=== PATIENT | female | born 1980 | race African-American/Black ===

== ENCOUNTER → 2018-06-18 | Outpatient (CLI) | payer OTHER ==
[2015-02-21 15:37] VITALS: BP 151/82
[~2018-06-18] MED LIST: AMIT50TA PO; ASPI325T8 PO; CETI10TA16 PO; CITA40TA12 PO; CYCL10TA2 PO; FERR325T72 PO; FLUT16SP2 NS; GABA-586 PO; HYDR1TAB14 PO; LIDO700A4 TP; METO25TA4 PO; MOME13HF2 IH; OXYC-323 PO; PROAIR HFA8.5 GM IH; RANI75TA12 PO; TRAM-48 PO
--- NOTE | 2018-06-18 13:07 | CARD ---
MR#: [id number] Date of Study: 06/18/2018 Ordering Physician: SAAD MULLINS, Referring Physician: SAAD MULLINS, Tech: Ange Hollis APPROVED REPORT EXAM: Two-dimensional and M-mode echocardiogram with Doppler and color Doppler. Other Information Quality : AverageHR: 89bpm INDICATION ASD 2D DIMENSIONS RVDd2.8 (2.9-3.5cm)Left Atrium(2D)3.7 (1.6-4.0cm) IVSd0.8 (0.7-1.1cm)Aortic Root(2D)2.5 (2.0-3.7cm) LVDd4.2 (3.9-5.9cm)LVOT Diameter1.9 (1.8-2.4cm) PWd1.0 (0.7-1.1cm)LVDs3.0 (2.5-4.0cm) FS (%) 26.9 %SV40.6 ml LVEF(%)52.9 (>50%) Aortic Valve AoV Peak Chris.166.7cm/sAoV VTI29.6cm AO Peak GR.11.1mmHgLVOT Peak Chris.141.9cm/s AO Mean GR.6mmHgAVA (VMAX)2.38cm2 Mitral Valve MV E Opyearkj409.5cm/sMV DECEL DGUN779rs MV A Wrdnxxax056.3cm/sE/A Ratio1.6 Tricuspid Valve TR P. Kigrjawb901oc/sRAP JRPWGNNQ9cjZy TR Peak Gr.81vtJiWROS77vhQg LEFT VENTRICLE The left ventricle is normal size. There is normal left ventricular wall thickness. The left ventricu lar systolic function is normal. The Ejection Fraction is 55-60%. There is normal LV segmental wall m otion. The left ventricular diastolic function and filling is normal for age. RIGHT VENTRICLE The right ventricle is normal size. There is normal right ventricular wall thickness. The right ventr icular systolic function is normal. ATRIA The left atrium size is normal. The right atrium size is normal. The interatrial septum is intact wit h no evidence for an atrial septal defect or patent foramen ovale as noted on 2-D or Doppler imaging. AORTIC VALVE The aortic valve is calcified but opens well. Doppler and Color Flow revealed no significant aortic r egurgitation. There is no significant aortic valvular stenosis. MITRAL VALVE The mitral valve is mildly thickened. Doppler and Color-flow revealed trace mitral regurgitation. TRICUSPID VALVE The tricuspid valve is normal in structure and function. Doppler and Color Flow revealed mild tricusp id regurgitation. There is no tricuspid valve stenosis. PULMONIC VALVE The pulmonary valve is normal in structure and function. Doppler and Color Flow revealed trace to mil d pulmonic valvular regurgitation. GREAT VESSELS The aortic root is normal in size. The IVC was visualized and appears normal in size. PERICARDIAL EFFUSION There is no evidence of significant pericardial effusion. Critical Notification Critical Value: No <Conclusion> The left ventricular systolic function is normal. The Ejection Fraction is 55-60%. There is normal LV segmental wall motion. Trace mitral regurgitation. Mild tricuspid regurgitation. There is no evidence of significant pericardial effusion. Signed by : Saad Mullins, Electronically Approved : 06/18/2018 13:06:36
== END | disposition home or self-care (01) ==
LOC: ECHO 11:10
PROVIDERS: ATTEND Internal Medicine Cardiovascular Disease
DX: I36.1 Nonrheumatic tricuspid (valve) insufficiency (principal); G43.909 Migraine, unspecified, not intractable, without status migrainosus; J45.909 Unspecified asthma, uncomplicated; Z86.79 Personal history of other diseases of the circulatory system
CPT/HCPCS: 93306

== ENCOUNTER → 2019-07-06 | Outpatient (CLI) | payer MEDICAID ==
[2015-02-21 15:37] VITALS: BP 151/82
[~2019-07-06] MED LIST changes: +ALBU2.5V8 IH; -GABA-586 PO; +GABA300C18 PO; -HYDR1TAB14 PO; +HYDR1TAB15 PO; -OXYC-323 PO; +OXYC1TAB15 PO; -PROAIR HFA8.5 GM IH; -RANI75TA12 PO; +RANI75TA89 PO
--- NOTE | 2019-07-07 09:39 | CARD ---
MR#: [id number] Date of Study: 07/06/2019 Ordering Physician: SAAD MULLINS, Referring Physician: SAAD MULLINS, Tech: Ange Hollis APPROVED REPORT EXAM: Two-dimensional and M-mode echocardiogram with Doppler and color Doppler. Other Information Quality : AverageHR: 99bpm INDICATION Atrial Septal Defect RISK FACTORS Hypertension Hyperlipidemia Smoking 2D DIMENSIONS RVDd4.0 (2.9-3.5cm)Left Atrium(2D)3.5 (1.6-4.0cm) IVSd1.1 (0.7-1.1cm)Aortic Root(2D)2.3 (2.0-3.7cm) LVDd4.4 (3.9-5.9cm)LVOT Diameter1.9 (1.8-2.4cm) PWd1.0 (0.7-1.1cm)LVDs2.7 (2.5-4.0cm) FS (%) 37.9 %SV58.7 ml LVEF(%)68.3 (>50%) Aortic Valve AoV Peak Chris.178.7cm/sAoV VTI28.7cm AO Peak GR.12.8mmHgLVOT Peak Chris.87.3cm/s LVOT VTI 14.94cmAO Mean GR.7mmHg SO (VMAX)1.65xh4JTT (VTI)1.52cm2 Mitral Valve MV E Jurqzoth587.3cm/sMV E Peak Gr.103mmHg MV A Iredhmfo952.9cm/sE/A Ratio1.4 TDI E/Lateral E'18.5E/Medial E'21.0 Pulmonary Valve PV Peak Yhebarja763.9cm/sPV Peak Grad.4mmHg Tricuspid Valve TR P. Zimvmqtt693is/sRAP FBGVWYKL3waIt TR Peak Gr.16hoKfAYSC61slFv Pulmonary Vein S1 Vqyuuiwx49.2cm/sD2 Kwiqdwoy06.0cm/s PVa uwbaioph33fend LEFT VENTRICLE The left ventricle is normal size. There is mild concentric left ventricular hypertrophy. The left ve ntricular systolic function is normal. The Ejection Fraction is 55-60%. There is normal LV segmental wall motion. The left ventricular diastolic function and filling is normal for age. RIGHT VENTRICLE The right ventricle is normal size. There is normal right ventricular wall thickness. The right ventr icular systolic function is normal. ATRIA The left atrium is borderline dilated. The right atrium size is normal. The interatrial septum is int act with no evidence for an atrial septal defect or patent foramen ovale as noted on 2-D or Doppler i maging. AORTIC VALVE The aortic valve is normal in structure and function. Doppler and Color Flow revealed no significant aortic regurgitation. There is no significant aortic valvular stenosis. MITRAL VALVE The mitral valve is mildly thickened. There is no evidence of mitral valve prolapse. There is no mitr al valve stenosis. Doppler and Color-flow revealed trace mitral regurgitation. TRICUSPID VALVE The tricuspid valve is normal in structure and function. Doppler and Color Flow revealed moderate ecc entric tricuspid regurgitation with an estimated PAP of 56 mmHg. There is moderate pulmonary hyperten ila. There is no tricuspid valve prolapse or vegetation. There is no tricuspid valve stenosis. PULMONIC VALVE The pulmonary valve is normal in structure and function. Doppler and Color Flow revealed trace pulmon ic valvular regurgitation. GREAT VESSELS The aortic root is normal in size. The IVC is normal in size and collapses >50% with inspiration. PERICARDIAL EFFUSION There is no evidence of significant pericardial effusion. Critical Notification Critical Value: No <Conclusion> The left ventricular systolic function is normal. The Ejection Fraction is 55-60%. There is normal LV segmental wall motion. Trace mitral regurgitation. Moderate eccentric tricuspid regurgitation with an estimated PAP of 56 mmHg. There is moderate pulmonary hypertension. There is no evidence of significant pericardial effusion. Signed by : Saad Mullins, Electronically Approved : 07/07/2019 09:39:01
== END | disposition home or self-care (01) ==
LOC: ECHO 13:27
PROVIDERS: ATTEND Internal Medicine Cardiovascular Disease
DX: I07.1 Rheumatic tricuspid insufficiency (principal); I48.0 Paroxysmal atrial fibrillation; I31.3 Pericardial effusion (noninflammatory); I27.20 Pulmonary hypertension, unspecified
CPT/HCPCS: 93306

== ENCOUNTER → 2020-07-29 | Outpatient (CLI) | payer MEDICAID ==
[2015-02-21 15:37] VITALS: BP 151/82
--- NOTE | 2020-07-29 20:10 | CARD ---
MR#: [id number] Date of Study: 07/29/2020 Ordering Physician: SAAD YAN, Referring Physician: SAAD YAN Tech: Cinthya Ricardo RDCS APPROVED REPORT EXAM: Two-dimensional and M-mode echocardiogram with Doppler and color Doppler. Other Information Quality : Good INDICATION ASD ASD Closure with Bovine Pericardial Patch 12/17/14 2D DIMENSIONS RVDd3.7 (2.9-3.5cm)Left Atrium(2D)3.9 (1.6-4.0cm) IVSd0.8 (0.7-1.1cm)Aortic Root(2D)2.3 (2.0-3.7cm) LVDd3.9 (3.9-5.9cm)LVOT Diameter1.8 (1.8-2.4cm) PWd0.9 (0.7-1.1cm)LVDs2.7 (2.5-4.0cm) FS (%) 29.6 %SV37.2 ml LVEF(%)57.3 (>50%) Aortic Valve AoV Peak Chris.159.5cm/sAoV VTI21.7cm AO Peak GR.10.2mmHgLVOT Peak Chris.97.3cm/s AO Mean GR.6mmHgAVA (VMAX)1.56cm2 Tricuspid Valve TR P. Jnerctbf623xy/sRAP SNSCOAMJ210fpGh TR Peak Gr.65mmHg Pulmonary Vein S1 Uyoqbceg00.1cm/sD2 Tqnzeigw00.4cm/s LEFT VENTRICLE The left ventricle is normal size. There is normal left ventricular wall thickness. The left ventricu lar systolic function is normal and the ejection fraction is within normal range. The Ejection Fracti on is 60-65%. Septal motion consistent with RV pressure and volume overload. Tissue Doppler imaging r eveals moderate left ventricular diastolic dysfunction. RIGHT VENTRICLE The right ventricle is moderate to severely dilated. RV Systolic function is moderately reduced. ATRIA The left atrium is borderline dilated. The right atrium is moderately dilated. The interatrial septum is intact with no evidence for an atrial septal defect or patent foramen ovale as noted on 2-D or Do ppler imaging. AORTIC VALVE The aortic valve is normal in structure and function. Doppler and Color Flow revealed no significant aortic regurgitation. There is no significant aortic valvular stenosis. MITRAL VALVE The mitral valve is calcified but opens well. There is no evidence of mitral valve prolapse. There is no mitral valve stenosis. Doppler and Color-flow revealed moderate to severe eccentric mitral regurg itation due to restricted posterior leaflet. TRICUSPID VALVE The tricuspid valve is malapposed. Doppler and Color Flow revealed severe eccentric tricuspid regurgi tation. There is severe pulmonary hypertension. The PA pressure was estimated at 68 mmHg. There is no tricuspid valve stenosis. PULMONIC VALVE The pulmonary valve is normal in structure and function. Doppler and Color Flow revealed mild to mode rate pulmonic valvular regurgitation. There is no pulmonic valvular stenosis. GREAT VESSELS The aortic root is normal in size. The ascending aorta is not well seen. There is moderate pulmonary artery dilatation. The IVC is normal in size and collapses >50% with inspiration. PERICARDIAL EFFUSION There is no evidence of significant pericardial effusion. Critical Notification Critical Value: No <Conclusion> The left ventricular systolic function is normal and the ejection fraction is within normal range. Th e Ejection Fraction is 60-65%. Septal motion consistent with RV pressure and volume overload. The right ventricle is moderate to severely dilated. RV Systolic function is moderately reduced. Doppler and Color-flow revealed moderate to severe eccentric mitral regurgitation due to restricted p osterior leaflet. Doppler and Color Flow revealed severe eccentric tricuspid regurgitation. There is severe pulmonary h ypertension. The PA pressure was estimated at 68 mmHg. Doppler and Color Flow revealed mild to moderate pulmonic valvular regurgitation. There is moderate pulmonary artery dilatation. Signed by : Renny Campbell, Electronically Approved : 07/29/2020 20:10:15
== END ==
LOC: ECHO 13:44
PROVIDERS: ATTEND Internal Medicine Cardiovascular Disease
DX: I08.8 Other rheumatic multiple valve diseases (principal); I28.1 Aneurysm of pulmonary artery; Q21.1 Atrial septal defect
CPT/HCPCS: 93306

== ENCOUNTER → 2020-08-04 | Outpatient (CLI) | payer MEDICAID ==
[2015-02-21 15:37] VITALS: BP 151/82
== END ==
LOC: LAB 13:15
PROVIDERS: ATTEND Internal Medicine Cardiovascular Disease
DX: Z01.812 Encounter for preprocedural laboratory examination (principal); Z20.828 Contact with and (suspected) exposure to other viral communicable diseases; I08.1 Rheumatic disorders of both mitral and tricuspid valves
CPT/HCPCS: U0003

== ENCOUNTER 2020-08-08 09:21 | Day surgery (SDC) | payer MEDICAID ==
[~2020-08-08 09:21] MED LIST changes: +IV RINGERS,LACTATED 1000ML 1,000 ML IV SCH
[2020-08-08] MEDS ORDERED: OMEP20CA16 PO (09:54)
[2020-08-08] MEDS ORDERED: PROPOFOL 10 MG/ML (20ML) VIAL. IV ONE (09:56)
[2020-08-08] MEDS ORDERED: LIDOCAINE 2% VISCOUS 15 ML SOLUTION. ONE (10:00)
[2020-08-08] MEDS ORDERED: BENZOCAINE ONE 20% MUCOSAL SPRAY. (10:00)
[2020-08-08] MEDS ORDERED: LIDOCAINE 2% TOPICAL JELLY 30GM TUBE. TP ONE ×2 (10:00→12:15)
[2020-08-08 10:32] LABS: PREG TEST PT QUAL NEGATIVE (NEG)
[2020-08-08] MEDS ORDERED: ETOMIDATE 20 MG/10 ML VIAL. IV ONE (11:00)
[2020-08-08] MEDS ORDERED: PHENYLEPHRINE in 0.9% NACL PF 1 MG/10 ML SYRINGE. IV ONE (11:00)
[2020-08-08 11:48] VITALS: BP 116/68
[2020-08-08] MEDS ORDERED: BENZOCAINE ONE 20% MUCOSAL SPRAY. MM (12:15)
[2020-08-08] MEDS ORDERED: LIDOCAINE 2% VISCOUS 15 ML SOLUTION. SWSW ONE (12:15)
--- NOTE | 2020-08-09 08:59 | CARD ---
MR#: [id number] Date of Study: 08/08/2020 Ordering Physician: SAAD YAN, Referring Physician: SAAD YAN Tech: Ange Hollis APPROVED REPORT EXAM: Transesophageal echocardiogram with color flow Doppler. INDICATION Valvular heart disease, Mitral and tricuspid regurgitation Tricuspid Valve TR P. Hqrkkybf631de/sRAP ALFEVCTN4vrPs TR Peak Gr.96rlLbBUVE67dvEx Reason For Test : Rule out cardiac source of emboli. PROCEDURE After obtaining informed consent, patient underwent transesophageal echo in the PACU. Type of Sedation : General Anesthesia Sedation was administered by Dr. Dorsey. Sedation was achieved with Propofol 300mg intravenously. Transesophageal probe was inserted and advanced into esophagus by Saad Yan MD. The SAMMY was performed without complications. Throughout the procedure, the blood pressure, pulse oximetry, cardiac rhythm, and rate were monitored . The patient tolerated the procedure without adverse effects. Recovery from general anesthesia was une ventful and vital signs were stable. LEFT VENTRICLE The left ventricle is normal size. There is normal left ventricular wall thickness. The left ventricu lar systolic function is normal. The Ejection Fraction is 55-60%. There is a flattened septum consist ent with right ventricle volume overload. RIGHT VENTRICLE The right ventricle is mildly dilated. There is normal right ventricular wall thickness. ATRIA The left atrium size is normal. The right atrium is moderately dilated. The interatrial septum is int act with no evidence for an atrial septal defect or patent foramen ovale as noted on 2-D or Doppler i maging. AORTIC VALVE The aortic valve is normal in structure and function. Doppler and Color Flow revealed no significant aortic regurgitation. There is no significant aortic valvular stenosis. MITRAL VALVE There is no evidence of mitral valve prolapse. There is no mitral valve stenosis. Restricted posterio r valve leaflet. Moderate mitral regurgitation wtih eccentric anteriorily directed jet. TRICUSPID VALVE The tricuspid valve leaflets are thickened , but open well. Doppler and Color Flow revealed moderate to severe tricuspid regurgitation with an estimated PAP of 55 mmHg. There is moderate pulmonary hyper tension. There is no tricuspid valve stenosis. PULMONIC VALVE The pulmonary valve is normal in structure and function. Doppler and Color Flow revealed trace to mil d pulmonic valvular regurgitation. GREAT VESSELS The aortic root is normal in size. PERICARDIAL EFFUSION There is no evidence of significant pericardial effusion. Critical Notification Critical Value: No <Conclusion> Technically very difficult study with air interference and artifacts despite several maneuvers. The left ventricular systolic function is normal. The Ejection Fraction is 55-60%. There is a flattened septum consistent with right ventricle volume overload. Restricted posterior valve leaflet. Moderate mitral regurgitation wtih eccentric anteriorily directe d jet. Moderate to severe tricuspid regurgitation with an estimated PAP of 55 mmHg. The interatrial septum is intact with no evidence for an atrial septal defect or patent foramen ovale There is no evidence of significant pericardial effusion. Signed by : Saad Yan, Electronically Approved : 08/09/2020 08:58:57
== END 2020-08-08 11:50 | disposition home or self-care (01) ==
LOC: SURG 09:21
PROVIDERS: ATTEND Internal Medicine Cardiovascular Disease
DX: I08.1 Rheumatic disorders of both mitral and tricuspid valves (principal); I10 Essential (primary) hypertension; E78.00 Pure hypercholesterolemia, unspecified; M19.90 Unspecified osteoarthritis, unspecified site; J45.909 Unspecified asthma, uncomplicated; E66.9 Obesity, unspecified; K21.9 Gastro-esophageal reflux disease without esophagitis; Z79.899 Other long term (current) drug therapy; Z98.890 Other specified postprocedural states; Z83.3 Family history of diabetes mellitus; Z88.8 Allergy status to other drugs, medicaments and biological substances; Z79.82 Long term (current) use of aspirin; Z87.891 Personal history of nicotine dependence
CPT/HCPCS: 84703; 93312; 93320; 93325; J2370; J2704; J3490

== ENCOUNTER 2020-11-15 09:22 | Inpatient (IN) | payer MEDICAID ==
[~2020-11-15] VITALS: Ht 162.6 cm; Wt 71.9 kg
[2020-11-15] VITALS (14 sets, daily range): BP systolic 111–144; BP diastolic 72–90
[~2020-11-15 09:22] MED LIST changes: +AMIO200T6 PO; +APIX5TAB PO; +DOXY100T PO; +FURO40TA4 PO; -IV RINGERS,LACTATED 1000ML 1,000 ML IV SCH; +OMEP20CA16 PO; +POTA20TA4 PO
[2020-11-15] MEDS ORDERED: FUROSEMIDE 40 MG/4 ML VIAL. IVP ONE (10:15)
--- NOTE | 2020-11-15 10:31 | ED.ADGEN ---
Past Medical History Past Medical History: Asthma, Bronchitis, CHF, High Cholesterol, Hypertension Additional Past Medical Histor: bulging disc, heart valve leaks, neuropathy Past Surgical History: Other Additional Past Surgical Histo: tailbone cysts, ASD repair; PFO closure Smoking Status: Former Smoker Alcohol Use: Occasionally Drug Use: Marijuana General Adult EDM: Chief Complaint: SHORTNESS OF BREATH HPI: HPI: Patient is a 39 year old female coming in for increasing shortness of breath and lower extremity edema. Patient also states that her abdomen feels more distended. She has a history significant for heart failure related to a septal defect that was not identified until she was 34 years old and atrial fibrillation. Have surgery to have it repaired but has chronic cardiac disease related to it. Has been started on amlodipine, furosemide, Eliquis. Patient states she has been compliant her medications. Denies any vomiting or diarrhea, no cough, chest pain or pressure. Has orthopnea and has to sit up to sleep. Review of Systems: Review of Systems: All other systems within normal limits except for as noted in the HPI Current Medications: Current Medications Medications (Trade) Dose Ordered Sig/Kailey Start Time Stop Time Status Last Admin Dose Admin Furosemide (Lasix) 40 mg 1X ONCE 11/15/20 10:15 11/15/20 10:22 DC 11/15/20 11:16 40 MG Allergies: Allergies: Allergies Coded Allergies Type Severity Reaction Last Updated Verified ibuprofen Allergy Intermediate Hives 08/08/20 Yes I S O L A T I O N *CONTACT* Allergy Unknown 08/08/20 Yes Physical Exam: PE: Constitutional: Well developed, well nourished, ill-appearing. [] HENT: Normocephalic, atraumatic, bilateral external ears normal, nose normal. [] Eyes: PERRLA, conjunctiva normal, no discharge. [] Neck: No rigidity, supple, no stridor. [] Cardiovascular: Tachycardic, regular rhythm [] Lungs & Thorax: Labored breathing with tachypnea, basilar crackles [] Abdomen: Soft, mildly distended, nontender to palpation. Skin: Warm, dry, no erythema, no rash. [] Back: Unremarkable Extremities: No deformities, range of motion grossly intact, bilateral pitting lower extremity edema [] Neurologic: Alert and oriented X 3, no focal deficits noted. [] Psychologic: Affect normal, judgement normal, mood normal. [] Current Patient Data: Labs: Laboratory Tests Test 11/15/20 11:09 11/15/20 11:40 White Blood Count 15.4 x10^3/uL (4.0-11.0) H Red Blood Count 4.73 x10^6/uL (3.50-5.40) Hemoglobin 9.3 g/dL (12.0-15.5) L Hematocrit 32.9 % (36.0-47.0) L Mean Corpuscular Volume 70 fL (79-100) L Mean Corpuscular Hemoglobin 20 pg (25-35) L Mean Corpuscular Hemoglobin Concent 28 g/dL (31-37) L Red Cell Distribution Width 25.6 % (11.5-14.5) H Platelet Count 367 x10^3/uL (140-400) Neutrophils (%) (Auto) 82 % (31-73) H Lymphocytes (%) (Auto) 12 % (24-48) L Monocytes (%) (Auto) 6 % (0-9) Eosinophils (%) (Auto) 0 % (0-3) Basophils (%) (Auto) 0 % (0-3) Neutrophils # (Auto) 12.6 x10^3/uL (1.8-7.7) H Lymphocytes # (Auto) 1.8 x10^3/uL (1.0-4.8) Monocytes # (Auto) 0.9 x10^3/uL (0.0-1.1) Eosinophils # (Auto) 0.0 x10^3/uL (0.0-0.7) Basophils # (Auto) 0.0 x10^3/uL (0.0-0.2) Segmented Neutrophils % 82 % (35-66) H Lymphocytes % 11 % (24-48) L Monocytes % 7 % (0-10) Nucleated Red Blood Cells 2 Platelet Estimate Adequate (ADEQUATE) Large Platelets Mod Giant Platelets Few Hypochromasia Marked Poikilocytosis Present Anisocytosis Marked Microcytosis Marked Ovalocytes Present Acanthocytes (Spur Cells) Present RBC Morphology Bizarre Forms Occ Prothrombin Time 54.6 SEC (11.7-14.0) H Prothrombin Time INR 6.0 (0.8-1.1) *H Sodium Level 137 mmol/L (136-145) Potassium Level 4.3 mmol/L (3.5-5.1) Chloride Level 94 mmol/L (98-107) L Carbon Dioxide Level 6 mmol/L (21-32) *L Anion Gap 37 (6-14) H Blood Urea Nitrogen 29 mg/dL (7-20) H Creatinine 2.0 mg/dL (0.6-1.0) H Estimated GFR (Cockcroft-Gault) 33.6 BUN/Creatinine Ratio 15 (6-20) Glucose Level 31 mg/dL (70-99) *L Lactic Acid Level 22.0 mmol/L (0.4-2.0) *H Calcium Level 10.1 mg/dL (8.5-10.1) Phosphorus Level 8.0 mg/dL (2.6-4.7) H Magnesium Level 2.4 mg/dL (1.8-2.4) Total Bilirubin 3.2 mg/dL (0.2-1.0) H Aspartate Amino Transferase (AST) 55 U/L (15-37) H Alanine Aminotransferase (ALT) 52 U/L (14-59) Alkaline Phosphatase 156 U/L (46-116) H Troponin I Quantitative 0.034 ng/mL (0.000-0.055) LM-Jnh-U-Type Natriuretic Peptide 58055 pg/mL (0-124) H Total Protein 8.0 g/dL (6.4-8.2) Albumin 3.6 g/dL (3.4-5.0) Albumin/Globulin Ratio 0.8 (1.0-1.7) L Procalcitonin 2.08 ng/mL (0.00-0.10) H Urine Collection Type Void Urine Color Denita Urine Clarity Cloudy Urine pH 5.0 (<5.0-8.0) Urine Specific [place] 1.015 (1.000-1.030) Urine Protein >=300 mg/dL (NEG-TRACE) Urine Glucose (UA) Negative mg/dL (NEG) Urine Ketones (Stick) Negative mg/dL (NEG) Urine Blood Negative (NEG) Urine Nitrite Negative (NEG) Urine Bilirubin Negative (NEG) Urine Urobilinogen Dipstick 1.0 mg/dL (0.2 mg/dL) Urine Leukocyte Esterase Negative (NEG) Urine RBC Occ /HPF (0-2) Urine WBC 5-10 /HPF (0-4) Urine Squamous Epithelial Cells Many /LPF Urine Amorphous Sediment Present /HPF Urine Bacteria Few /HPF (0-FEW) Urine Hyaline Casts Many /HPF Laboratory Tests 11/15/20 11:09 Laboratory Tests 11/15/20 11:09 Vital Signs: Vital Signs Date Time Temp Pulse Resp B/P (MAP) Pulse Ox O2 Delivery O2 Flow Rate FiO2 11/15/20 11:58 106 20 121/75 (90) 100 11/15/20 10:02 Room Air 11/15/20 09:30 96.0 96.0 EKG: EKG: Atrial fibrillation, heart rate 112 bpm, normal axis, no ST elevation or depression. [] Heart Score: Risk Factors: Risk Factors: DM, Current or recent (<one month) smoker, HTN, HLP, family history of CAD, obesity. Risk Scores: Score 0 - 3: 2.5% MACE over next 6 weeks - Discharge Home Score 4 - 6: 20.3% MACE over next 6 weeks - Admit for Clinical Observation Score 7 - 10: 72.7% MACE over next 6 weeks - Early Invasive Strategies Radiology/Procedures: Radiology/Procedures: EXAM: CHEST 1 VIEW History: Congestive heart failure COMPARISON: 09/27/2020 TECHNIQUE: Single portable radiograph of the chest FINDINGS: Mild cardiomegaly. Right lung base airspace opacities likely pneumonia or atelectasis with small right pleural effusion slightly increased since prior exam. IMPRESSION: Right lung base airspace opacities likely pneumonia or atelectasis with small right pleural effusion slightly increased since prior exam. [] Course & Med Decision Making: Course & Med Decision Making Pertinent Labs and Imaging studies reviewed. (See chart for details) [] Dragon Disclaimer: Dragon Disclaimer: This electronic medical record was generated, in whole or in part, using a voice recognition dictation system. Departure Departure Impression: Primary Impression: Atrial fibrillation with RVR Additional Impressions: CHF (congestive heart failure) KENNETH (acute kidney injury) Hypoglycemia Pneumonia Disposition: ADMITTED INPT THIS HOSP Admitting Physician: YESSICA Condition: GUARDED Referrals: CLAYTON NGUYEN MD (PCP) Problem Qualifiers TREVOR DSOUZA MD Nov 15, 2020 10:31
--- NOTE | 2020-11-15 10:34 | RAD ---
EXAM: CHEST 1 VIEW History: Congestive heart failure COMPARISON: 09/27/2020 TECHNIQUE: Single portable radiograph of the chest FINDINGS: Mild cardiomegaly. Right lung base airspace opacities likely pneumonia or atelectasis with small right pleural effusion slightly increased since prior exam. IMPRESSION: Right lung base airspace opacities likely pneumonia or atelectasis with small right pleural effusion slightly increased since prior exam. Electronically signed by: Faustino Motta MD (11/15/2020 10:31 AM) [id number]
[2020-11-15 11:18] LABS: BASO % 0 % (0-3); EOS % 0 % (0-3); HEMATOCRIT 32.9 % (36.0-47.0); HEMOGLOBIN 9.3 g/dL (12.0-15.5); LYMPH # 1.8 x10^3/uL (1.0-4.8); LYMPH % 12 % (24-48); MEAN CORPUSCULAR HEMOGLOBIN 20 pg (25-35); MEAN CORPUSCULAR HGB CONC 28 g/dL (31-37); MEAN CORPUSCULAR VOLUME 70 fL (79-100); MONO # 0.9 x10^3/uL (0.0-1.1); MONO % 6 % (0-9); NEUT # 12.6 x10^3/uL (1.8-7.7); NEUT % 82 % (31-73); PLATELET COUNT 367 x10^3/uL (140-400); RED BLOOD COUNT 4.73 x10^6/uL (3.50-5.40); RED CELL DISTRIBUTION WIDTH 25.6 % (11.5-14.5); WHITE BLOOD COUNT 15.4 x10^3/uL (4.0-11.0)
[2020-11-15 11:29] LABS: PROTHROMBIN TIME PATIENT 54.6 SEC (11.7-14.0)
[2020-11-15 11:52] LABS: ALBUMIN 3.6 g/dL (3.4-5.0); ALBUMIN/GLOBULIN RATIO 0.8 (1.0-1.7); CALCIUM 10.1 mg/dL (8.5-10.1); GFR 33.6; MAGNESIUM 2.4 mg/dL (1.8-2.4); POTASSIUM 4.3 mmol/L (3.5-5.1); TOTAL BILIRUBIN 3.2 mg/dL (0.2-1.0)
[2020-11-15 12:05] LABS: BILIRUBIN,URINE NEGATIVE (NEG); CLARITY,URINE CLOUDY; COLOR,URINE AMBER; NITRITE,URINE NEGATIVE (NEG); PROTEIN,URINE >=300 mg/dL (NEG-TRACE)
[2020-11-15 12:17] LABS: AMORPHOUS SEDIMENT,UR PRESENT /HPF; BACTERIA,URINE FEW /HPF (0-FEW); HYALINE CASTS, URINE MANY /HPF; RBC,URINE OCC /HPF (0-2)
[2020-11-15] MEDS ORDERED: DEXTROSE 50% 25 GM / 50ML DISP.SYRIN. IV ONE ×2 (12:27→12:45)
[2020-11-15] MEDS ORDERED: fentaNYL PF VIAL 100 MCG/2 ML VIAL IV PRN (13:00)
[2020-11-15] MEDS ORDERED: PIPERACILLIN/TAZOBACTAM 3.375 GM in IV NORMAL SALINE 50ML 50 ML IV ONE (13:00)
[2020-11-15] MEDS ORDERED: VANCOMYCIN 2 GM in IV NORMAL SALINE 500ML BAG 500 ML IV ONE (13:00)
[2020-11-15] MEDS ORDERED: ACETAMINOPHEN 325 MG TABLET. PO PRN ×2 (13:00→16:15)
[2020-11-15] MEDS ORDERED: ONDANSETRON PF 4 MG/2 ML VIAL. IV PRN (13:00)
[2020-11-15 13:10] LABS: % LYMPHS 11 % (24-48); % MONOS 7 % (0-10); % SEGS 82 % (35-66); NUCLEATED RBC 2
[2020-11-15 13:12] LABS: PLT ESTIMATE ADEQUATE (ADEQUATE)
[2020-11-15 13:13] LABS: ANISOCYTOSIS MARKED; HYPOCHROMIA MARKED; POIKILOCYTOSIS PRESENT
[2020-11-15 13:14] LABS: ACANTHOCYTES PRESENT; MICROCYTOSIS MARKED; OVALOCYTES PRESENT
[2020-11-15 13:15] LABS: BIZZARE CELLS OCC
[2020-11-15 15:04] LABS: BASE EXCESS ABG -21 mmol/L (-3-3); HCO3 ABG 5 mmol/L (21-28); PO2 ABG 119 mmHg (75-108); SAT O2 ABG 97 % (92-99)
[2020-11-15 15:10] LABS: PCO2 ABG < 15 mmHg (35-46)
[2020-11-15 15:11] LABS: FIO2 ABG 21
--- NOTE | 2020-11-15 15:15 | PDOC2 ---
KELLY FLOOD TRADING ASSISTANT 11/15/20 1515: CARDIAC CONSULT DATE OF CONSULT Date of Consult DATE: 11/15/20 TIME: 14:57 REASON FOR CONSULT Reason for Consult: CHF REFERRING PHYSICIAN Referring Physician: Dr. Simms SOURCE Source: Chart review, Patient HISTORY OF PRESENT ILLNESS HISTORY OF PRESENT ILLNESS This is a 39 yo female who presented secondary to LE edema and shortness of breath for the last several days. Developed orthopnea last night. SOA progressed so she came into the ED for further evaluation and treatment. She denies any dizziness, chest pain, palpitations, diaphoresis, or nausea/vomiting. Has a history of ASD s/p repair, chronic diastolic CHF, and AFIB. Was seen by our service in September for new onset AFIB. Amiodarone and Eliquis initiated. INR 6.0 upon arrival. Recent event monitor with mainly atrial flutter. PAST MEDICAL HISTORY Past Medical History Cardiovascular: HTN, Valve insufficiency, AFIB/flutter, Pulmonary hypertension (ASD), Other Pulmonary: Asthma, Bronchitis CENTRAL NERVOUS SYSTEM: Other (No pertinent history) GI: GERD Heme/Onc: Anemia NOS Psych: Anxiety Musculoskeletal: low back pain ENT: Allergic Rhinitis PAST SURGICAL HISTORY Past Surgical History Other (multiple failed percutaneous closure prompting open surgical repair of ASD; pilonidal cyst removal) FAMILY HISTORY Family History: Other (noncontributory ) SOCIAL HISTORY Social History Smoke: No ALCOHOL: none Drugs: None CURRENT MEDICATIONS CURRENT MEDICATIONS Current Medications Medications (Trade) Dose Ordered Sig/Kailey Route PRN Reason Start Time Stop Time Status Last Admin Dose Admin Furosemide (Lasix) 40 mg 1X ONCE IVP 11/15/20 10:15 11/15/20 10:22 DC 11/15/20 11:16 Vancomycin HCl 2 gm/Sodium Chloride 500 ml @ 250 mls/hr 1X ONCE IV 11/15/20 13:00 11/15/20 14:59 11/15/20 13:37 Piperacillin Sod/ Tazobactam Sod 3.375 gm/Sodium Chloride 50 ml @ 100 mls/hr 1X ONCE IV 11/15/20 13:00 11/15/20 13:29 DC 11/15/20 13:05 Dextrose (Dextrose 50%-Water Syringe) 25 gm 1X ONCE IV 11/15/20 12:45 11/15/20 12:46 DC 11/15/20 12:35 ALLERGIES ALLERGIES: Coded Allergies: ibuprofen (Verified Allergy, Intermediate, Hives, 08/08/20) I S O L A T I O N *CONTACT* (Verified Allergy, Unknown, 08/08/20) mrsa + ROS Review of System 14 point ROS conducted with pertinent positives noted above in HPI PHYSICAL EXAM PHYSICAL EXAM General: Alert, Oriented X3, Cooperative, No acute distress HEENT: Mucous membr. moist/pink Lungs: Other (diminished bases with fine crackles) Heart: Other (AFlutter) Abdomen: Soft, Other (truncal obesity) Extremities: No cyanosis, Other (1+ LE edema) Neuro: Normal speech, Sensation intact Psych/Mental Status: Mental status NL, Mood NL MUSCULOSKELETAL: Osteoarthritic changes both hands VITALS/I&O VITALS/I&O: Vital Signs Date Time Temp Pulse Resp B/P (MAP) Pulse Ox O2 Delivery O2 Flow Rate FiO2 11/15/20 14:21 102 20 145/82 (103) 100 Room Air 11/15/20 09:30 96.0 96.0 LABS Lab: Laboratory Tests Test 11/15/20 11:09 11/15/20 11:40 11/15/20 12:25 11/15/20 13:00 White Blood Count 15.4 x10^3/uL (4.0-11.0) H Red Blood Count 4.73 x10^6/uL (3.50-5.40) Hemoglobin 9.3 g/dL (12.0-15.5) L Hematocrit 32.9 % (36.0-47.0) L Mean Corpuscular Volume 70 fL (79-100) L Mean Corpuscular Hemoglobin 20 pg (25-35) L Mean Corpuscular Hemoglobin Concent 28 g/dL (31-37) L Red Cell Distribution Width 25.6 % (11.5-14.5) H Platelet Count 367 x10^3/uL (140-400) Neutrophils (%) (Auto) 82 % (31-73) H Lymphocytes (%) (Auto) 12 % (24-48) L Monocytes (%) (Auto) 6 % (0-9) Eosinophils (%) (Auto) 0 % (0-3) Basophils (%) (Auto) 0 % (0-3) Neutrophils # (Auto) 12.6 x10^3/uL (1.8-7.7) H Lymphocytes # (Auto) 1.8 x10^3/uL (1.0-4.8) Monocytes # (Auto) 0.9 x10^3/uL (0.0-1.1) Eosinophils # (Auto) 0.0 x10^3/uL (0.0-0.7) Basophils # (Auto) 0.0 x10^3/uL (0.0-0.2) Segmented Neutrophils % 82 % (35-66) H Lymphocytes % 11 % (24-48) L Monocytes % 7 % (0-10) Nucleated Red Blood Cells 2 Platelet Estimate Adequate (ADEQUATE) Large Platelets Mod Giant Platelets Few Hypochromasia Marked Poikilocytosis Present Anisocytosis Marked Microcytosis Marked Ovalocytes Present Acanthocytes (Spur Cells) Present RBC Morphology Bizarre Forms Occ Prothrombin Time 54.6 SEC (11.7-14.0) H Prothrombin Time INR 6.0 (0.8-1.1) *H Sodium Level 137 mmol/L (136-145) Potassium Level 4.3 mmol/L (3.5-5.1) Chloride Level 94 mmol/L (98-107) L Carbon Dioxide Level 6 mmol/L (21-32) *L Anion Gap 37 (6-14) H Blood Urea Nitrogen 29 mg/dL (7-20) H Creatinine 2.0 mg/dL (0.6-1.0) H Estimated GFR (Cockcroft-Gault) 33.6 BUN/Creatinine Ratio 15 (6-20) Glucose Level 31 mg/dL (70-99) *L Lactic Acid Level 22.0 mmol/L (0.4-2.0) *H Calcium Level 10.1 mg/dL (8.5-10.1) Phosphorus Level 8.0 mg/dL (2.6-4.7) H Magnesium Level 2.4 mg/dL (1.8-2.4) Total Bilirubin 3.2 mg/dL (0.2-1.0) H Aspartate Amino Transferase (AST) 55 U/L (15-37) H Alanine Aminotransferase (ALT) 52 U/L (14-59) Alkaline Phosphatase 156 U/L (46-116) H Troponin I Quantitative 0.034 ng/mL (0.000-0.055) WG-Lcz-R-Type Natriuretic Peptide 67365 pg/mL (0-124) H Total Protein 8.0 g/dL (6.4-8.2) Albumin 3.6 g/dL (3.4-5.0) Albumin/Globulin Ratio 0.8 (1.0-1.7) L Procalcitonin 2.08 ng/mL (0.00-0.10) H Urine Collection Type Void Urine Color Denita Urine Clarity Cloudy Urine pH 5.0 (<5.0-8.0) Urine Specific [place] 1.015 (1.000-1.030) Urine Protein >=300 mg/dL (NEG-TRACE) Urine Glucose (UA) Negative mg/dL (NEG) Urine Ketones (Stick) Negative mg/dL (NEG) Urine Blood Negative (NEG) Urine Nitrite Negative (NEG) Urine Bilirubin Negative (NEG) Urine Urobilinogen Dipstick 1.0 mg/dL (0.2 mg/dL) Urine Leukocyte Esterase Negative (NEG) Urine RBC Occ /HPF (0-2) Urine WBC 5-10 /HPF (0-4) Urine Squamous Epithelial Cells Many /LPF Urine Amorphous Sediment Present /HPF Urine Bacteria Few /HPF (0-FEW) Urine Hyaline Casts Many /HPF Glucose (Fingerstick) 15 mg/dL (70-99) *L 72 mg/dL (70-99) Test 11/15/20 14:11 Glucose (Fingerstick) 98 mg/dL (70-99) Laboratory Tests 11/15/20 11:09 Laboratory Tests 11/15/20 11:09 ECHOCARDIOGRAM ECHOCARDIOGRAM SAMMY <Conclusion> Technically very difficult study with air interference and artifacts despite several maneuvers. The left ventricular systolic function is normal. The Ejection Fraction is 55-60%. There is a flattened septum consistent with right ventricle volume overload. Restricted posterior valve leaflet. Moderate mitral regurgitation wtih eccentric anteriorily directed jet. Moderate to severe tricuspid regurgitation with an estimated PAP of 55 mmHg. The interatrial septum is intact with no evidence for an atrial septal defect or patent foramen ovale There is no evidence of significant pericardial effusion. DATE: 08/08/20 4340 ASSESSMENT/PLAN ASSESSMENT/PLAN 1. Acute on chronic diastolic CHF; Echo 08/26 with preserved LV systolic function. s/p IV Lasix in ED 2. AFIB/flutter; recent event monitor with predominantly A-flutter. On Amiodarone, 3. Acute respiratory failure with s/c CHF, possible PNA, and secondary cor pulmonale 6. Valvular insufficiency: notable for moderate MR and mod to severe TR 7. Hx of of open ASD closure: 2015. Stable per recent SAMMY 8. KENNETH 9. Fe deficiency anemia: no overt bleed. Hgb at 9.3 10. Coagulopathy; INR 6 11. Hypertension; controlled 12. Hypoglycemia, profound 13. Leukocytosis, lactic acidosis, probable sepsis 14. PUI; COVID pending Recommendations Discontinue Eliquis, ASA with coagulopathy Stop Amiodarone with elevated LFTs Continue metoprolol for rate control Mild diuresis with monitoring or renal function Limited echo if COVID negative Supportive care SAAD YAN MD 11/15/201939: CARDIAC CONSULT ASSESSMENT/PLAN ASSESSMENT/PLAN Patient seen and examined. Agree with TRAVEL PT's assessment and plan. Patient with history of surgical ASD closure, valvular heart disease and recently diagnosed AF on amiodarone presented with sepsis, ac on chronic diastolic HF, coagulopathy and renal insufficiency. Agree with stopping eliquis and amiodarone. Continue metoprolol or rate control. Continue gentle diuresis with close monitoring of BUN/Cr Consider pulm and ID consultations If patient's fluid status does not improve, we will consider repeat echo and right heart cath once more stable Thank you for your consultation KELLY FLOOD APRN Nov 15, 2020 15:15 SAAD YAN MD Nov 15, 2020 19:40
[2020-11-15] MEDS ORDERED: SODIUM BICARB ADULT 8.4% 50 MEQ/50 ML DISP.SYRIN. IV ONE (15:30)
[2020-11-15] MEDS ORDERED: ONDANSETRON PF 4 MG/2 ML VIAL. IVP PRN (16:15)
[2020-11-15] MEDS ORDERED: VANCOMYCIN PER PHARMACY MC PRN (16:15)
[2020-11-15] MEDS ORDERED: DEXTROSE 50% 25 GM / 50ML DISP.SYRIN. IV PRN (16:15)
[2020-11-15] MEDS ORDERED: DOCUSATE SODIUM 100 MG CAPSULE. PO PRN (16:15)
[2020-11-15] MEDS ORDERED: SENNOSIDES 8.6 MG TABLET PO PRN (16:15)
--- NOTE | 2020-11-15 16:21 | PDOC1 ---
History and Physical Date of Service: DOS: DATE: 11/15/20 TIME: 15:55 Chief Complaint: Chief Complain: Shortness of breath History of Present Illness: HPI: Patient is a 39-year-old female with past medical history of asthma, diastolic CHF, dyslipidemia, ASD status post open repair in 2014 who comes to the ED for worsening shortness of breath in the past couple days and also worsening fluid overload and edema in her lower extremity and abdominal region. Patient does have a history of heart failure and due to atrial septal defect that was not repaired until recently. Patient also has been taking Lasix in the past month or so with compliance and she does report good urine output but she feels more distended overall. Denies fevers, chest pain, abdominal pain, dysuria, diarrhe a, sick contacts or palpitations or syncopal episodes. Patient does endorse orthopnea. Past Medical/Surgical History: PMH/PSH: Past Medical History: Asthma, Bronchitis, CHF, High Cholesterol, Hypertension, bulging disc, heart valve leaks, neuropathy Past Surgical History: tailbone cysts, ASD repair; PFO closure Allergies: Allergies: Coded Allergies: ibuprofen (Verified Allergy, Intermediate, Hives, 08/08/20) I S O L A T I O N *CONTACT* (Verified Allergy, Unknown, 08/08/20) mrsa + Family History: Family History: Reviewed with no relevant findings Social History: Social History: Smoking Status: Former Smoker Alcohol Use: Occasionally Drug Use: Marijuana Current Medications: Current Medications Current Medications Furosemide (Lasix) 40 mg 1X ONCE IVP Last administered on 11/15/20at 11:16; Start 11/15/20 at 10:15; Stop 11/15/20 at 10:22; Status DC Vancomycin HCl 2 gm/Sodium Chloride 500 ml @ 250 mls/hr 1X ONCE IV Last administered on 11/15/20at 13:37; Start 11/15/20 at 13:00; Stop 11/15/20 at 14:59; Status DC Piperacillin Sod/ Tazobactam Sod 3.375 gm/Sodium Chloride 50 ml @ 100 mls/hr 1X ONCE IV Last administered on 11/15/20at 13:05; Start 11/15/20 at 13:00; Stop 11/15/20 at 13:29; Status DC Dextrose (Dextrose 50%-Water Syringe) 25 gm STK-MED ONCE IV ; Start 11/15/20 at 12:27; Stop 11/15/20 at 12:27; Status DC Dextrose (Dextrose 50%-Water Syringe) 25 gm 1X ONCE IV Last administered on 11/15/20at 12:35; Start 11/15/20 at 12:45; Stop 11/15/20 at 12:46; Status DC Ondansetron HCl (Zofran) 4 mg PRN Q8HRS PRN IV NAUSEA/VOMITING; Start 11/15/20 at 13:00; Stop 11/16/20 at 12:59 Fentanyl Citrate (Fentanyl 2ml Vial) 50 mcg PRN Q1HR PRN IV PAIN; Start 11/15/20 at 13:00; Stop 11/16/20 at 12:59 Acetaminophen (Tylenol) 650 mg PRN Q4HRS PRN PO FEVER > 100.3'F; Start 11/15/20 at 13:00; Stop 11/16/20 at 12:59 Dextrose/Sodium Chloride 1,000 ml @ 50 mls/hr Q20H IV ; Start 11/15/20 at 16:00 Sodium Bicarbonate (Sodium Bicarb Adult 8.4% Syr) 100 meq 1X ONCE IV ; Start 11/15/20 at 15:30; Stop 11/15/20 at 15:31; Status DC Active Scripts Active Amiodarone Hcl 200 Mg Tablet 200 Mg PO DAILY 30 Days Eliquis (Apixaban) 5 Mg Tablet 5 Mg PO BID 30 Days Doxycycline Hyclate 100 Mg Tablet 100 Mg PO BID 5 Days Klor-Con M20 (Potassium Chloride) 20 Meq Tab.er.prt 20 Meq PO DAILYWBKFT 30 Days Furosemide 40 Mg Tablet 40 Mg PO DAILY 30 Days Reported Omeprazole 20 Mg Capsule.dr 1 Cap PO DAILY Metoprolol Tartrate 25 Mg Tablet 1 Tab PO BID Feosol (Ferrous Sulfate) 325 Mg Tablet 325 Mg PO DAILY Aspirin 325 Mg Tablet 1 Tab PO DAILY Amitriptyline Hcl 50 Mg Tablet 1 Tab PO QHS Ultram (Tramadol Hcl) 50 Mg Tablet 1 Tab PO Q6HRS PRN Dulera 100 Mcg/5 Mcg Inhaler (Mometasone/Formoterol) 13 Gm Hfa.aer.ad 2 Puff IH BID Lidoderm (Lidocaine) 700 Mg Adh..patch 1 Patch TP DAILY PRN Neurontin (Gabapentin) 300 Mg Capsule 2 Cap PO BID Flonase (Fluticasone Propionate) 16 Gm [place].susp 2 [place] NS DAILY Cyclobenzaprine Hcl 10 Mg Tablet 1 Tab PO TID PRN Celexa (Citalopram Hydrobromide) 40 Mg Tablet 1 Tab PO DAILY Cetirizine Hcl 10 Mg Tablet 1 Tab PO DAILY Proair Hfa Inhaler (Albuterol Sulfate) 8.5 Gm Hfa.aer.ad 2 Puff IH PRN Q4-6HRS ROS: Review of Systems Review of System REVIEW OF SYSTEMS: GENERAL: Denies weakness SKIN: No bruising, hair changes or rashes. EYES: No blurred, double or loss of vision. NOSE AND THROAT: No history of nosebleeds, hoarseness or sore throat. HEART: No history of palpitations, chest pain or shortness of breath on exertion. LUNGS: Denies cough, hemoptysis, wheezing or shortness of breath. GASTROINTESTINAL: Denies changes in appetite, nausea, vomiting, diarrhea or constipation. GENITOURINARY: No history of frequency, urgency, hesitancy or nocturia. NEUROLOGIC: Denies history of numbness, tingling, or tremor. PSYCHIATRIC: No history of panic, anxiety or depression. ENDOCRINE: No history of heat or cold intolerance, polyuria or polydipsia. EXTREMITIES: Denies joint pain, pain on walking or stiffness. Physical Exam: Vital Signs: Vital Signs Date Time Temp Pulse Resp B/P (MAP) Pulse Ox O2 Delivery O2 Flow Rate FiO2 11/15/20 14:21 102 20 145/82 (103) 100 Room Air 11/15/20 09:30 96.0 96.0 Physcial Exam: GEN: No apparent distress. Alert and oriented HEENT: Normal cephalic, atraumatic, external auditory canals are patent EYES: Extraocular muscles are intact, pupil are equally round and reactive to light and accommodation MUSCULOSKELETAL: Well developed , well nourished, good range of motion ENDOCRINE: No thyromegaly was palpated LYMPHATICS: No cervical chain or axillary nodes were noted HEMATOPOIETIC: No bruising NECK: Supple, no JVD, no thyromegaly was noted LUNGS: Clear to auscultation in all lung elise without rhonchi or wheezing HEART: RRR, S!, S2 present. Peripheral pulses intact, no obvious murmurs not ed no S3 appreciated ABDOMEN: Soft, nontender. Positive bowel sounds, no organomegaly, normal bowel sounds EXTREMITIES: +3 pitting edema bilateral lower extremities. Without clubbing, cyanosis, or edema. Pedal pulses intact. Negative Homans sign NEUROLOGIC: Normal speech and tone. A&O x 3, moves all extremities, no obvious focal deficits PSYCHIATRIC: Normal affect, normal mood. Stable SKIN: No ulcerations or rashes, good skin turgor, no jaundice VASCULAR: Good capillary refill, neurovascular bundle appears to be intact Labs: Labs: Laboratory Tests Test 11/15/20 11:09 11/15/20 11:40 11/15/20 12:25 11/15/20 13:00 White Blood Count 15.4 x10^3/uL (4.0-11.0) Red Blood Count 4.73 x10^6/uL (3.50-5.40) Hemoglobin 9.3 g/dL (12.0-15.5) Hematocrit 32.9 % (36.0-47.0) Mean Corpuscular Volume 70 fL (79-100) Mean Corpuscular Hemoglobin 20 pg (25-35) Mean Corpuscular Hemoglobin Concent 28 g/dL (31-37) Red Cell Distribution Width 25.6 % (11.5-14.5) Platelet Count 367 x10^3/uL (140-400) Neutrophils (%) (Auto) 82 % (31-73) Lymphocytes (%) (Auto) 12 % (24-48) Monocytes (%) (Auto) 6 % (0-9) Eosinophils (%) (Auto) 0 % (0-3) Basophils (%) (Auto) 0 % (0-3) Neutrophils # (Auto) 12.6 x10^3/uL (1.8-7.7) Lymphocytes # (Auto) 1.8 x10^3/uL (1.0-4.8) Monocytes # (Auto) 0.9 x10^3/uL (0.0-1.1) Eosinophils # (Auto) 0.0 x10^3/uL (0.0-0.7) Basophils # (Auto) 0.0 x10^3/uL (0.0-0.2) Segmented Neutrophils % 82 % (35-66) Lymphocytes % 11 % (24-48) Monocytes % 7 % (0-10) Nucleated Red Blood Cells 2 Platelet Estimate Adequate (ADEQUATE) Large Platelets Mod Giant Platelets Few Hypochromasia Marked Poikilocytosis Present Anisocytosis Marked Microcytosis Marked Ovalocytes Present Acanthocytes Present RBC Morphology Bizarre Forms Occ Prothrombin Time 54.6 SEC (11.7-14.0) Prothromb Time International Ratio 6.0 (0.8-1.1) Sodium Level 137 mmol/L (136-145) Potassium Level 4.3 mmol/L (3.5-5.1) Chloride Level 94 mmol/L (98-107) Carbon Dioxide Level 6 mmol/L (21-32) Anion Gap 37 (6-14) Blood Urea Nitrogen 29 mg/dL (7-20) Creatinine 2.0 mg/dL (0.6-1.0) Estimated GFR (Cockcroft-Gault) 33.6 BUN/Creatinine Ratio 15 (6-20) Glucose Level 31 mg/dL (70-99) Lactic Acid Level 22.0 mmol/L (0.4-2.0) Calcium Level 10.1 mg/dL (8.5-10.1) Phosphorus Level 8.0 mg/dL (2.6-4.7) Magnesium Level 2.4 mg/dL (1.8-2.4) Total Bilirubin 3.2 mg/dL (0.2-1.0) Aspartate Amino Transf (AST/SGOT) 55 U/L (15-37) Alanine Aminotransferase (ALT/SGPT) 52 U/L (14-59) Alkaline Phosphatase 156 U/L (46-116) Troponin I Quantitative 0.034 ng/mL (0.000-0.055) FX-Nxb-Q-Type Natriuretic Peptide 82542 pg/mL (0-124) Total Protein 8.0 g/dL (6.4-8.2) Albumin 3.6 g/dL (3.4-5.0) Albumin/Globulin Ratio 0.8 (1.0-1.7) Procalcitonin 2.08 ng/mL (0.00-0.10) Urine Collection Type Void Urine Color Denita Urine Clarity Cloudy Urine pH 5.0 (<5.0-8.0) Urine Specific [place] 1.015 (1.000-1.030) Urine Protein >=300 mg/dL (NEG-TRACE) Urine Glucose (UA) Negative mg/dL (NEG) Urine Ketones (Stick) Negative mg/dL (NEG) Urine Blood Negative (NEG) Urine Nitrite Negative (NEG) Urine Bilirubin Negative (NEG) Urine Urobilinogen Dipstick 1.0 mg/dL (0.2 mg/dL) Urine Leukocyte Esterase Negative (NEG) Urine RBC Occ /HPF (0-2) Urine WBC 5-10 /HPF (0-4) Urine Squamous Epithelial Cells Many /LPF Urine Amorphous Sediment Present /HPF Urine Bacteria Few /HPF (0-FEW) Urine Hyaline Casts Many /HPF Glucose (Fingerstick) 15 mg/dL (70-99) 72 mg/dL (70-99) Test 11/15/20 14:11 11/15/20 14:48 Glucose (Fingerstick) 98 mg/dL (70-99) O2 Saturation 97 % (92-99) Arterial Blood pH 7.16 (7.35-7.45) Arterial Blood pCO2 at Patient Temp < 15 mmHg (35-46) Arterial Blood pO2 at Patient Temp 119 mmHg (75-108) Arterial Blood HCO3 5 mmol/L (21-28) Arterial Blood Base Excess -21 mmol/L (-3-3) FiO2 21 Laboratory Tests Test 11/15/20 11:09 11/15/20 11:40 11/15/20 12:25 11/15/20 13:00 White Blood Count 15.4 x10^3/uL (4.0-11.0) Red Blood Count 4.73 x10^6/uL (3.50-5.40) Hemoglobin 9.3 g/dL (12.0-15.5) Hematocrit 32.9 % (36.0-47.0) Mean Corpuscular Volume 70 fL (79-100) Mean Corpuscular Hemoglobin 20 pg (25-35) Mean Corpuscular Hemoglobin Concent 28 g/dL (31-37) Red Cell Distribution Width 25.6 % (11.5-14.5) Platelet Count 367 x10^3/uL (140-400) Neutrophils (%) (Auto) 82 % (31-73) Lymphocytes (%) (Auto) 12 % (24-48) Monocytes (%) (Auto) 6 % (0-9) Eosinophils (%) (Auto) 0 % (0-3) Basophils (%) (Auto) 0 % (0-3) Neutrophils # (Auto) 12.6 x10^3/uL (1.8-7.7) Lymphocytes # (Auto) 1.8 x10^3/uL (1.0-4.8) Monocytes # (Auto) 0.9 x10^3/uL (0.0-1.1) Eosinophils # (Auto) 0.0 x10^3/uL (0.0-0.7) Basophils # (Auto) 0.0 x10^3/uL (0.0-0.2) Segmented Neutrophils % 82 % (35-66) Lymphocytes % 11 % (24-48) Monocytes % 7 % (0-10) Nucleated Red Blood Cells 2 Platelet Estimate Adequate (ADEQUATE) Large Platelets Mod Giant Platelets Few Hypochromasia Marked Poikilocytosis Present Anisocytosis Marked Microcytosis Marked Ovalocytes Present Acanthocytes Present RBC Morphology Bizarre Forms Occ Prothrombin Time 54.6 SEC (11.7-14.0) Prothromb Time International Ratio 6.0 (0.8-1.1) Sodium Level 137 mmol/L (136-145) Potassium Level 4.3 mmol/L (3.5-5.1) Chloride Level 94 mmol/L (98-107) Carbon Dioxide Level 6 mmol/L (21-32) Anion Gap 37 (6-14) Blood Urea Nitrogen 29 mg/dL (7-20) Creatinine 2.0 mg/dL (0.6-1.0) Estimated GFR (Cockcroft-Gault) 33.6 BUN/Creatinine Ratio 15 (6-20) Glucose Level 31 mg/dL (70-99) Lactic Acid Level 22.0 mmol/L (0.4-2.0) Calcium Level 10.1 mg/dL (8.5-10.1) Phosphorus Level 8.0 mg/dL (2.6-4.7) Magnesium Level 2.4 mg/dL (1.8-2.4) Total Bilirubin 3.2 mg/dL (0.2-1.0) Aspartate Amino Transf (AST/SGOT) 55 U/L (15-37) Alanine Aminotransferase (ALT/SGPT) 52 U/L (14-59) Alkaline Phosphatase 156 U/L (46-116) Troponin I Quantitative 0.034 ng/mL (0.000-0.055) JM-Dro-L-Type Natriuretic Peptide 85117 pg/mL (0-124) Total Protein 8.0 g/dL (6.4-8.2) Albumin 3.6 g/dL (3.4-5.0) Albumin/Globulin Ratio 0.8 (1.0-1.7) Procalcitonin 2.08 ng/mL (0.00-0.10) Urine Collection Type Void Urine Color Denita Urine Clarity Cloudy Urine pH 5.0 (<5.0-8.0) Urine Specific [place] 1.015 (1.000-1.030) Urine Protein >=300 mg/dL (NEG-TRACE) Urine Glucose (UA) Negative mg/dL (NEG) Urine Ketones (Stick) Negative mg/dL (NEG) Urine Blood Negative (NEG) Urine Nitrite Negative (NEG) Urine Bilirubin Negative (NEG) Urine Urobilinogen Dipstick 1.0 mg/dL (0.2 mg/dL) Urine Leukocyte Esterase Negative (NEG) Urine RBC Occ /HPF (0-2) Urine WBC 5-10 /HPF (0-4) Urine Squamous Epithelial Cells Many /LPF Urine Amorphous Sediment Present /HPF Urine Bacteria Few /HPF (0-FEW) Urine Hyaline Casts Many /HPF Glucose (Fingerstick) 15 mg/dL (70-99) 72 mg/dL (70-99) Test 11/15/20 14:11 11/15/20 14:48 Glucose (Fingerstick) 98 mg/dL (70-99) O2 Saturation 97 % (92-99) Arterial Blood pH 7.16 (7.35-7.45) Arterial Blood pCO2 at Patient Temp < 15 mmHg (35-46) Arterial Blood pO2 at Patient Temp 119 mmHg (75-108) Arterial Blood HCO3 5 mmol/L (21-28) Arterial Blood Base Excess -21 mmol/L (-3-3) FiO2 21 Images: Images CXR IMPRESSION: Right lung base airspace opacities likely pneumonia or atelectasis with small right pleural effusion slightly increased since prior exam. Assessment/Plan Assessment/Plan Sepsis Acute respiratory failure concern for CAP Acute on chronic CHF exacerbation last echo in July 2020 showed EF of 60-65% and severely dilated right ventricle Lactic acidosis Severe symptomatic hypoglycemia KENNETH due to vasomotor nephropathy Acute volume overload Coagulopathy History of atrial fibrillation/atrial flutter Secondary cor pulmonale due to pulmonary hypertension Anemia of chronic disease Admit to ICU for further management Pending cardiology evaluation Pending nephrology evaluation for KENNETH Strict I's and O's Sky placement for monitoring strict urine output Lasix IV dosing as needed Continue telemetry monitoring for atrial fibrillation Continue amiodarone Continue IV empiric antibiotics Heparin for DVT prophylaxis Protonix for GI prophylaxis ADA diet Full code Discussed with RN and SW Disposition ICU care Surrogate decision maker is the A total of 64 minutes of critical care time was spent in reviewing chart, labs, and images. Discussed with RN and SW. Justifications for Admission Other Justification MARTHA HER MD Nov 15, 2020 16:21
[2020-11-15] MEDS ORDERED: THIAMINE 100 MG TABLET. PO SCH (16:30)
[2020-11-15] MEDS: IV DEXTROSE 5 %-0.45 % NACL 1,000 ML IV SCH (16:43)
[2020-11-15] MEDS: CEFEPIME HCL IV Push 2 GM VIAL. IVP SCH (16:46)
[2020-11-15 16:58] LABS: BLOOD UREA NITROGEN 31 mg/dL (7-20); CHLORIDE 95 mmol/L (98-107); GFR 33.6; GLUCOSE 124 mg/dL (70-99); POTASSIUM 4.1 mmol/L (3.5-5.1); SODIUM 139 mmol/L (136-145)
[2020-11-15 17:01] LABS: ANION GAP 39 (6-14); CARBON DIOXIDE < 5 mmol/L (21-32)
[2020-11-15 18:51] LABS: BARBITURATES NEG (NEG); BENZODIAZEPINES NEG (NEG); CANNABINOIDS POS (NEG); COCAINE NEG (NEG); METHADONE NEG (NEG); OPIATES NEG (NEG); PHENCYCLIDINE NEG (NEG)
[2020-11-15 18:58] LABS: AMPHETAMINE/METHAMPHETAMINE NEG (NEG)
--- NOTE | 2020-11-15 19:29 | RAD ---
Exam: CT of abdomen and pelvis without contrast INDICATION: Elevated lactic acid, low CO2 TECHNIQUE: Sequential axial images through the abdomen and pelvis obtained without IV contrast. Sagit alfredo and coronal reformatted images were reconstructed from the axial data and reviewed. Comparisons: None FINDINGS: Heart size is normal. No pericardial effusion. Moderate right pleural effusion. Hazy opacities the jesus ng. Evaluation of the solid organs is limited secondary to noncontrast technique. Liver, spleen, pancreas, gallbladder and adrenals are unremarkable. No perinephric inflammation or hydronephrosis. No renal or ureteral calculi are identified. Bladder is decompressed not well evaluated. Uterus is nonenlarged. No abnormal adnexal mass. There is diffuse wall thickening involving the ascending colon with mild adjacent fluid. Appendix is normal. No free intra-abdominal air. Abdominal aorta has a normal course and caliber. No enlarged abdominal lymph nodes are identified. No suspicious osseous lesions or acute fractures. IMPRESSION: 1. Diffuse wall thickening at the ascending colon, favored represent colitis. This may be infectious or inflammatory in etiology. 2. Moderate right and small left pleural effusion with hazy adjacent airspace disease may relate to pulmonary edema. Superimposed infectious process is difficult to exclude. Exposure: One or more of the following in the visualized dose reduction techniques were utilized for this examination: 1. Automated exposure control 2. Adjustment of the MA and/or KV according to patient size 3. Use of iterative of reconstructive technique Electronically signed by: Lorenzo Gayle MD (11/15/2020 7:26 PM) [facility]
[2020-11-15] MEDS ORDERED: METOPROLOL TART IMMED RELEASE 25 MG TABLET. PO SCH (21:00)
[2020-11-15] MEDS ORDERED: HEPARIN for SUB-Q USE 5,000 UNIT/ML VIAL. SQ SCH (21:00)
[2020-11-15 21:12] LABS: BASE EXCESS ABG -3 mmol/L (-3-3); HCO3 ABG 19 mmol/L (21-28); PCO2 ABG 25 mmHg (35-46); PO2 ABG 81 mmHg (75-108); SAT O2 ABG 96 % (92-99)
[2020-11-15] MEDS: GABAPENTIN 300 MG CAPSULE. PO SCH (21:27)
[2020-11-15 21:32] LABS: FIO2 ABG 21
[2020-11-15] MEDS: THIAMINE INJ 300 MG in IV DEXTROSE 5% 50 ML IV SCH (22:33)
[2020-11-15 23:24] LABS: CALCIUM 9.7 mg/dL (8.5-10.1); CREATININE 1.9 mg/dL (0.6-1.0); GFR 35.6; POTASSIUM 3.3 mmol/L (3.5-5.1)
[2020-11-16] VITALS (21 sets, daily range): BP systolic 94–165; BP diastolic 57–107
[2020-11-16] MEDS: THIAMINE INJ 300 MG in IV DEXTROSE 5% 50 ML IV SCH ×3 (06:28→23:00)
[2020-11-16 08:07] LABS: BASO % 0 % (0-3); EOS % 0 % (0-3); HEMATOCRIT 29.1 % (36.0-47.0); HEMOGLOBIN 8.8 g/dL (12.0-15.5); LYMPH # 1.7 x10^3/uL (1.0-4.8); LYMPH % 9 % (24-48); MEAN CORPUSCULAR HEMOGLOBIN 20 pg (25-35); MEAN CORPUSCULAR HGB CONC 30 g/dL (31-37); MEAN CORPUSCULAR VOLUME 65 fL (79-100); MONO # 1.1 x10^3/uL (0.0-1.1); MONO % 6 % (0-9); NEUT # 15.9 x10^3/uL (1.8-7.7); NEUT % 85 % (31-73); PLATELET COUNT 293 x10^3/uL (140-400); RED BLOOD COUNT 4.51 x10^6/uL (3.50-5.40); RED CELL DISTRIBUTION WIDTH 25.4 % (11.5-14.5); WHITE BLOOD COUNT 18.8 x10^3/uL (4.0-11.0)
[2020-11-16 08:31] LABS: ALBUMIN 3.1 g/dL (3.4-5.0); ALBUMIN/GLOBULIN RATIO 0.7 (1.0-1.7); CALCIUM 9.5 mg/dL (8.5-10.1); CREATININE 1.6 mg/dL (0.6-1.0); GFR 43.4; POTASSIUM 3.2 mmol/L (3.5-5.1); TOTAL PROTEIN 7.7 g/dL (6.4-8.2)
[2020-11-16 08:33] LABS: MAGNESIUM 2.2 mg/dL (1.8-2.4); PHOSPHORUS 3.2 mg/dL (2.6-4.7)
[2020-11-16] MEDS ORDERED: ASPIRIN 325 MG TABLET PO SCH (09:00)
[2020-11-16] MEDS ORDERED: AMIODARONE HCL 200 MG TABLET. PO SCH (09:00)
[2020-11-16 09:03] LABS: PROTHROMBIN TIME PATIENT 30.7 SEC (11.7-14.0)
--- NOTE | 2020-11-16 09:09 | PDOC ---
KELLY FLOOD PERMANENT MOLD SUPERVISOR 11/16/20 0909: CARDIO Progress Notes Date and Time Date of Service 11/16/20 Time of Evaluation 1215 Subjective Subjective: No Chest Pain, Other (SOA improved ) Vitals Vitals Vital Signs Date Time Temp Pulse Resp B/P (MAP) Pulse Ox O2 Delivery O2 Flow Rate FiO2 11/16/20 08:00 Room Air 11/16/20 07:00 98.1 106 15 115/85 (95) 100 98.1 Weight Weight [ ] Input and Output Intake and Output Intake and Output 11/16/20 07:00 Intake Total 2154 ml Output Total 1635 ml Balance 519 ml Intake Oral 740 ml IV Total 1414 ml Output Urine Total 1635 ml Laboratory Labs Laboratory Tests Test 11/15/20 11:09 11/15/20 11:40 11/15/20 12:25 11/15/20 13:00 White Blood Count 15.4 x10^3/uL (4.0-11.0) Red Blood Count 4.73 x10^6/uL (3.50-5.40) Hemoglobin 9.3 g/dL (12.0-15.5) Hematocrit 32.9 % (36.0-47.0) Mean Corpuscular Volume 70 fL (79-100) Mean Corpuscular Hemoglobin 20 pg (25-35) Mean Corpuscular Hemoglobin Concent 28 g/dL (31-37) Red Cell Distribution Width 25.6 % (11.5-14.5) Platelet Count 367 x10^3/uL (140-400) Neutrophils (%) (Auto) 82 % (31-73) Lymphocytes (%) (Auto) 12 % (24-48) Monocytes (%) (Auto) 6 % (0-9) Eosinophils (%) (Auto) 0 % (0-3) Basophils (%) (Auto) 0 % (0-3) Neutrophils # (Auto) 12.6 x10^3/uL (1.8-7.7) Lymphocytes # (Auto) 1.8 x10^3/uL (1.0-4.8) Monocytes # (Auto) 0.9 x10^3/uL (0.0-1.1) Eosinophils # (Auto) 0.0 x10^3/uL (0.0-0.7) Basophils # (Auto) 0.0 x10^3/uL (0.0-0.2) Segmented Neutrophils % 82 % (35-66) Lymphocytes % 11 % (24-48) Monocytes % 7 % (0-10) Nucleated Red Blood Cells 2 Platelet Estimate Adequate (ADEQUATE) Large Platelets Mod Giant Platelets Few Hypochromasia Marked Poikilocytosis Present Anisocytosis Marked Microcytosis Marked Ovalocytes Present Acanthocytes Present RBC Morphology Bizarre Forms Occ Prothrombin Time 54.6 SEC (11.7-14.0) Prothromb Time International Ratio 6.0 (0.8-1.1) Sodium Level 137 mmol/L (136-145) Potassium Level 4.3 mmol/L (3.5-5.1) Chloride Level 94 mmol/L (98-107) Carbon Dioxide Level 6 mmol/L (21-32) Anion Gap 37 (6-14) Blood Urea Nitrogen 29 mg/dL (7-20) Creatinine 2.0 mg/dL (0.6-1.0) Estimated GFR (Cockcroft-Gault) 33.6 BUN/Creatinine Ratio 15 (6-20) Glucose Level 31 mg/dL (70-99) Lactic Acid Level 22.0 mmol/L (0.4-2.0) Calcium Level 10.1 mg/dL (8.5-10.1) Phosphorus Level 8.0 mg/dL (2.6-4.7) Magnesium Level 2.4 mg/dL (1.8-2.4) Total Bilirubin 3.2 mg/dL (0.2-1.0) Aspartate Amino Transf (AST/SGOT) 55 U/L (15-37) Alanine Aminotransferase (ALT/SGPT) 52 U/L (14-59) Alkaline Phosphatase 156 U/L (46-116) Troponin I Quantitative 0.034 ng/mL (0.000-0.055) AP-Ozm-B-Type Natriuretic Peptide 16851 pg/mL (0-124) Total Protein 8.0 g/dL (6.4-8.2) Albumin 3.6 g/dL (3.4-5.0) Albumin/Globulin Ratio 0.8 (1.0-1.7) Procalcitonin 2.08 ng/mL (0.00-0.10) Urine Collection Type Void Urine Color Denita Urine Clarity Cloudy Urine pH 5.0 (<5.0-8.0) Urine Specific [place] 1.015 (1.000-1.030) Urine Protein >=300 mg/dL (NEG-TRACE) Urine Glucose (UA) Negative mg/dL (NEG) Urine Ketones (Stick) Negative mg/dL (NEG) Urine Blood Negative (NEG) Urine Nitrite Negative (NEG) Urine Bilirubin Negative (NEG) Urine Urobilinogen Dipstick 1.0 mg/dL (0.2 mg/dL) Urine Leukocyte Esterase Negative (NEG) Urine RBC Occ /HPF (0-2) Urine WBC 5-10 /HPF (0-4) Urine Squamous Epithelial Cells Many /LPF Urine Amorphous Sediment Present /HPF Urine Bacteria Few /HPF (0-FEW) Urine Hyaline Casts Many /HPF Glucose (Fingerstick) 15 mg/dL (70-99) 72 mg/dL (70-99) Test 11/15/20 14:11 11/15/20 14:48 11/15/20 15:30 11/15/20 18:19 Glucose (Fingerstick) 98 mg/dL (70-99) O2 Saturation 97 % (92-99) Arterial Blood pH 7.16 (7.35-7.45) Arterial Blood pCO2 at Patient Temp < 15 mmHg (35-46) Arterial Blood pO2 at Patient Temp 119 mmHg (75-108) Arterial Blood HCO3 5 mmol/L (21-28) Arterial Blood Base Excess -21 mmol/L (-3-3) FiO2 21 Sodium Level 139 mmol/L (136-145) Potassium Level 4.1 mmol/L (3.5-5.1) Chloride Level 95 mmol/L (98-107) Carbon Dioxide Level < 5 mmol/L (21-32) Anion Gap 39 (6-14) Blood Urea Nitrogen 31 mg/dL (7-20) Creatinine 2.0 mg/dL (0.6-1.0) Estimated GFR (Cockcroft-Gault) 33.6 Glucose Level 124 mg/dL (70-99) Lactic Acid Level 22.1 mmol/L (0.4-2.0) Calcium Level 10.0 mg/dL (8.5-10.1) Troponin I Quantitative 0.018 ng/mL (0.000-0.055) Urine Opiates Screen Neg (NEG) Urine Methadone Screen Neg (NEG) Urine Barbiturates Neg (NEG) Urine Phencyclidine Screen Neg (NEG) Urine Amphetamine/Methamphetamine Neg (NEG) Urine Benzodiazepines Screen Neg (NEG) Urine Cocaine Screen Neg (NEG) Urine Cannabinoids Screen Pos (NEG) Urine Ethyl Alcohol Neg (NEG) Test 11/15/20 20:42 11/15/20 22:50 11/16/20 05:45 O2 Saturation 96 % (92-99) Arterial Blood pH 7.50 (7.35-7.45) Arterial Blood pCO2 at Patient Temp 25 mmHg (35-46) Arterial Blood pO2 at Patient Temp 81 mmHg (75-108) Arterial Blood HCO3 19 mmol/L (21-28) Arterial Blood Base Excess -3 mmol/L (-3-3) FiO2 21 Sodium Level 134 mmol/L (136-145) 134 mmol/L (136-145) Potassium Level 3.3 mmol/L (3.5-5.1) 3.2 mmol/L (3.5-5.1) Chloride Level 94 mmol/L (98-107) 95 mmol/L (98-107) Carbon Dioxide Level 24 mmol/L (21-32) 26 mmol/L (21-32) Anion Gap 16 (6-14) 13 (6-14) Blood Urea Nitrogen 31 mg/dL (7-20) 32 mg/dL (7-20) Creatinine 1.9 mg/dL (0.6-1.0) 1.6 mg/dL (0.6-1.0) Estimated GFR (Cockcroft-Gault) 35.6 43.4 Glucose Level 152 mg/dL (70-99) 87 mg/dL (70-99) Lactic Acid Level 8.1 mmol/L (0.4-2.0) 3.4 mmol/L (0.4-2.0) Calcium Level 9.7 mg/dL (8.5-10.1) 9.5 mg/dL (8.5-10.1) Troponin I Quantitative 0.025 ng/mL (0.000-0.055) White Blood Count 18.8 x10^3/uL (4.0-11.0) Red Blood Count 4.51 x10^6/uL (3.50-5.40) Hemoglobin 8.8 g/dL (12.0-15.5) Hematocrit 29.1 % (36.0-47.0) Mean Corpuscular Volume 65 fL (79-100) Mean Corpuscular Hemoglobin 20 pg (25-35) Mean Corpuscular Hemoglobin Concent 30 g/dL (31-37) Red Cell Distribution Width 25.4 % (11.5-14.5) Platelet Count 293 x10^3/uL (140-400) Neutrophils (%) (Auto) 85 % (31-73) Lymphocytes (%) (Auto) 9 % (24-48) Monocytes (%) (Auto) 6 % (0-9) Eosinophils (%) (Auto) 0 % (0-3) Basophils (%) (Auto) 0 % (0-3) Neutrophils # (Auto) 15.9 x10^3/uL (1.8-7.7) Lymphocytes # (Auto) 1.7 x10^3/uL (1.0-4.8) Monocytes # (Auto) 1.1 x10^3/uL (0.0-1.1) Eosinophils # (Auto) 0.0 x10^3/uL (0.0-0.7) Basophils # (Auto) 0.0 x10^3/uL (0.0-0.2) BUN/Creatinine Ratio 20 (6-20) Phosphorus Level 3.2 mg/dL (2.6-4.7) Magnesium Level 2.2 mg/dL (1.8-2.4) Total Bilirubin 3.0 mg/dL (0.2-1.0) Aspartate Amino Transf (AST/SGOT) 78 U/L (15-37) Alanine Aminotransferase (ALT/SGPT) 54 U/L (14-59) Alkaline Phosphatase 129 U/L (46-116) Total Protein 7.7 g/dL (6.4-8.2) Albumin 3.1 g/dL (3.4-5.0) Albumin/Globulin Ratio 0.7 (1.0-1.7) Microbiology Micro Microbiology 11/15/20 Urine Culture - Final, Complete Physical Exam HEENT: Neck Supple W Full Motion Chest: Symmetric LUNGS: Other (diminished ) Heart: irregularly irregular (AF-flutter rate mildly elevated ) Abdomen: Soft N/T Extremities: Other (1+ bailteral LE edema ) Neurology: alert, oriented, follow commands Assessment Assessment 1. Acute on chronic diastolic CHF; Echo 08/26 with preserved LV systolic function. s/p IV Lasix in ED 2. AFIB/flutter; rate mildly elevated 3. Acute respiratory failure with a/c CHF and secondary cor pulmonale 6. Valvular insufficiency: notable for moderate MR and mod to severe TR 7. H/o ASD s/p surgical closure: 2014. Stable per recent SAMMY 8. KENNETH; Cr down 1.6 9. Fe deficiency anemia: no overt bleed. Hgb at 8.8 10. Coagulopathy; INR 6. Eliquis discontinued 11. Hypertension; controlled 12. Hypoglycemia, profound improved 13. Leukocytosis, lactic acidosis, probable sepsis. Lactic down to 3.4 14. Abdominal pain; CT with possible colitis 15. Hypokalemia 16. Marijana use Recommendations Continue metoprolol for rate control; will increase for better control No ASA, OAC with anemia, coagulopathy Mild diuresis with close monitoring or renal function Replace K Follow cultures Antibiotics as per ID Consider C Supportive care Justicifation of Admission Dx: Justifications for Admission: Justification of Admission Dx: Yes CHF: Cardiac Arrhythmias SAAD YAN MD 11/17/20 0902: CARDIO Progress Notes Assessment Assessment Patient seen and examined 11/16/20. Agree with BAG MACHINE HELPER's assessment and plan. Patient with history of surgical ASD closure, valvular heart disease and recen tly diagnosed AF on amiodarone presented with sepsis, ac on chronic diastolic HF, coagulopathy and renal insufficiency. Eliquis and amiodarone held. Agree with increasing metoprolol dose for better rate control. Continue gentle diuresis with close monitoring of BUN/Cr Pulmonary and ID teams following. If patient's fluid status does not improve, we will consider right heart cath on ce more stable KELLY FLOOD APRN Nov 16, 2020 09:09 SAAD YAN MD Nov 17, 2020 09:02
[2020-11-16] MEDS: GABAPENTIN 300 MG CAPSULE. PO SCH ×2 (09:27→21:37)
[2020-11-16] MEDS: CITALOPRAM 20 MG TABLET. PO SCH (09:28)
[2020-11-16] MEDS: PANTOPRAZOLE 40 MG TABLET.DR. PO SCH (09:28)
[2020-11-16] MEDS: FLUTICASONE 50MCG/NASAL SPRAY 16GM BOTTLE. NS SCH (09:29)
[2020-11-16] MEDS: METOPROLOL TART IMMED RELEASE 25 MG TABLET. PO SCH ×2 (09:29→21:54)
--- NOTE | 2020-11-16 09:55 | PDOC2 ---
CONSULT Date of Consult Date of Consult DATE: 11/16/20 TIME: 09:37 Reason for Consult Reason for Consult: KENNETH Source Source: Chart review Past Medical History Cardiovascular: HTN, Hyperlipidemia, Valve insufficiency, Pulmonary hypertensi on Pulmonary: Asthma, Bronchitis CENTRAL NERVOUS SYSTEM: Other GI: GERD Heme/Onc: Anemia NOS Psych: Anxiety Musculoskeletal: low back pain Past Surgical History Past Surgical History: Other Family History Family History: Other (noncontributory ) Social History ALCOHOL: none Drugs: None Current Problem List Problem List Problems Medical Problems: (1) KENNETH (acute kidney injury) Status: Acute (2) Atrial fibrillation with RVR Status: Acute (3) CHF (congestive heart failure) Status: Acute (4) Hypoglycemia Status: Acute (5) Pneumonia Status: Acute Current Medications Current Medications Current Medications Furosemide (Lasix) 40 mg 1X ONCE IVP Last administered on 11/15/20at 11:16; St art 11/15/20 at 10:15; Stop 11/15/20 at 10:22; Status DC Vancomycin HCl 2 gm/Sodium Chloride 500 ml @ 250 mls/hr 1X ONCE IV Last administered on 11/15/20at 13:37; Start 11/15/20 at 13:00; Stop 11/15/20 at 14:59; Status DC Piperacillin Sod/ Tazobactam Sod 3.375 gm/Sodium Chloride 50 ml @ 100 mls/hr 1X ONCE IV Last administered on 11/15/20at 13:05; Start 11/15/20 at 13:00; Stop 11/15/20 at 13:29; Status DC Dextrose (Dextrose 50%-Water Syringe) 25 gm STK-MED ONCE IV ; Start 11/15/20 at 12:27; Stop 11/15/20 at 12:27; Status DC Dextrose (Dextrose 50%-Water Syringe) 25 gm 1X ONCE IV Last administered on 11/15/20at 12:35; Start 11/15/20 at 12:45; Stop 11/15/20 at 12:46; Status DC Ondansetron HCl (Zofran) 4 mg PRN Q8HRS PRN IV NAUSEA/VOMITING; Start 11/15/20 at 13:00; Stop 11/15/20 at 18:28; Status DC Fentanyl Citrate (Fentanyl 2ml Vial) 50 mcg PRN Q1HR PRN IV PAIN; Start 11/15/20 at 13:00; Stop 11/16/20 at 12:59 Acetaminophen (Tylenol) 650 mg PRN Q4HRS PRN PO FEVER > 100.3'F; Start 11/15/20 at 13:00; Stop 11/15/20 at 18:29; Status DC Dextrose/Sodium Chloride 1,000 ml @ 50 mls/hr Q20H IV Last administered on 11/15/20at 16:43; Start 11/15/20 at 16:00 Sodium Bicarbonate (Sodium Bicarb Adult 8.4% Syr) 100 meq 1X ONCE IV Last administered on 11/15/20at 16:43; Start 11/15/20 at 15:30; Stop 11/15/20 at 15:31; Status DC Vancomycin HCl (Vanco Per Pharmacy) 1 each PRN DAILY PRN MC SEE COMMENTS; Start 11/15/20 at 16:15 Cefepime HCl (Maxipime) 2 gm Q24H IVP Last administered on 11/15/20at 16:46; Start 11/15/20 at 17:00 Sennosides (Senna) 17.2 mg PRN BID PRN PO CONSTIPATION; Start 11/15/20 at 16:15 Docusate Sodium (Colace) 100 mg PRN DAILY PRN PO HARD STOOLS; Start 11/15/20 at 16:15 Ondansetron HCl (Zofran) 4 mg PRN Q6HRS PRN IVP NAUSEA/VOMITING; Start 11/15/20 at 16:15 Dextrose (Dextrose 50%-Water Syringe) 12.5 gm PRN Q15MIN PRN IV SEE COMMENTS; Start 11/15/20 at 16:15 Acetaminophen (Tylenol) 650 mg PRN Q4HRS PRN PO TEMP OVER 100.4F OR MILD PAIN; Start 11/15/20 at 16:15 Heparin Sodium (Porcine) (Heparin Sodium) 5,000 unit Q12HR SQ ; Start 11/15/20 at 21:00; Stop 11/15/20 at 16:17; Status DC Amiodarone HCl (Cordarone) 200 mg DAILY PO ; Start 11/16/20 at 09:00; Stop 11/15/20 at 16:38; Status DC Aspirin ([place] Aspirin) 325 mg DAILY PO ; Start 11/16/20 at 09:00; Stop 11/15/20 at 16:38; Status DC Fluticasone Propionate (Flonase) 2 spray DAILY NS Last administered on 11/16/20at 09:29; Start 11/16/20 at 09:00 Gabapentin (Neurontin) 600 mg BID PO Last administered on 11/16/20at 09:27; Start 11/15/20 at 21:00 Metoprolol Tartrate (Lopressor) 25 mg BID PO Last administered on 11/15/20at 21:28; Start 11/15/20 at 21:00; Stop 11/16/20 at 09:08; Status DC Citalopram Hydrobromide (CeleXA) 40 mg DAILY PO Last administered on 11/16/20at 09:28; Start 11/16/20 at 09:00 Pantoprazole Sodium (Protonix) 40 mg DAILYAC PO Last administered on 11/16/20at 09:28; Start 11/16/20 at 07:30 Thiamine Mononitrate (Vitamin B-1) 300 mg DAILY PO ; Start 11/15/20 at 16:30; Stop 11/15/20 at 16:22; Status DC Thiamine HCl 300 mg/Dextrose 53 ml @ 102 mls/hr Q8HRS IV Last administered on 11/16/20at 06:28; Start 11/15/20 at 22:00 Metronidazole 100 ml @ 100 mls/hr Q12HR IV Last administered on 11/16/20at 09:30; Start 11/15/20 at 21:00 Metoprolol Tartrate (Lopressor) 50 mg BID PO Last administered on 11/16/20at 09:29; Start 11/16/20 at 09:15 Active Scripts Active Amiodarone Hcl 200 Mg Tablet 200 Mg PO DAILY 30 Days Eliquis (Apixaban) 5 Mg Tablet 5 Mg PO BID 30 Days Doxycycline Hyclate 100 Mg Tablet 100 Mg PO BID 5 Days Klor-Con M20 (Potassium Chloride) 20 Meq Tab.er.prt 20 Meq PO DAILYWBKFT 30 Days Furosemide 40 Mg Tablet 40 Mg PO DAILY 30 Days Reported Omeprazole 20 Mg Capsule.dr 1 Cap PO DAILY Metoprolol Tartrate 25 Mg Tablet 1 Tab PO BID Feosol (Ferrous Sulfate) 325 Mg Tablet 325 Mg PO DAILY Aspirin 325 Mg Tablet 1 Tab PO DAILY Amitriptyline Hcl 50 Mg Tablet 1 Tab PO QHS Ultram (Tramadol Hcl) 50 Mg Tablet 1 Tab PO Q6HRS PRN Dulera 100 Mcg/5 Mcg Inhaler (Mometasone/Formoterol) 13 Gm Hfa.aer.ad 2 Puff IH BID Lidoderm (Lidocaine) 700 Mg Adh..patch 1 Patch TP DAILY PRN Neurontin (Gabapentin) 300 Mg Capsule 2 Cap PO BID Flonase (Fluticasone Propionate) 16 Gm [place].susp 2 [place] NS DAILY Cyclobenzaprine Hcl 10 Mg Tablet 1 Tab PO TID PRN Celexa (Citalopram Hydrobromide) 40 Mg Tablet 1 Tab PO DAILY Cetirizine Hcl 10 Mg Tablet 1 Tab PO DAILY Proair Hfa Inhaler (Albuterol Sulfate) 8.5 Gm Hfa.aer.ad 2 Puff IH PRN Q4-6HRS Allergies Allergies: Coded Allergies: ibuprofen (Verified Allergy, Intermediate, Hives, 08/08/20) I S O L A T I O N *CONTACT* (Verified Allergy, Unknown, 08/08/20) mrsa + ROS Review of System As per HPI, rest of the ROS is negative Physical Exam Physical Exam General: No acute distress HEENT: Mucous membr. moist/pink Neck supple Lungs: diminished bases Heart: AFlutter Abdomen: Soft, NT Extremities: Trace Bilat LE edema + Neuro: grossly normal Psych/Mental Status: Mental status NL, Mood NL No Sky, No CVA or SP tenderness Skin No rash Vital Signs Vital Signs Date Time Temp Pulse Resp B/P (MAP) Pulse Ox O2 Delivery O2 Flow Rate FiO2 11/16/20 09:29 106 115/85 11/16/20 08:00 Room Air 11/16/20 07:00 98.1 15 100 98.1 Assessment & Plan KENNETH - Non Oliguric , ATN , Improving , E-Lytes stable CT scan- unremarkable Kidneys and bladder , No Micr hematuria, Overt Proteinuria +, No hx of NSAID's use per patient , No Hx of CKD (KENNETH last hosp - resolved ) Supportive care, Strict I/O, monitor Sepsis- elevated Lactic acid POA Metabolic acidosis POA- 2/2 Lactic acidosis, . UDS positive for cannabinoids Bicarb normal now Acute respiratory failure - Moderate right and small left pleural effusion with hazy adjacent airspace disease may relate to pulmonary edema. On IV Lasix, cardiology managing Acute on chronic CHF exacerbation last echo in July 2020 showed EF of 60-65% and severely dilated right ventricle Valvular insufficiency: notable for moderate MR and mod to severe TR Hx of of open ASD closure: 2014. Stable per recent SAMMY Severe symptomatic hypoglycemia POA History of atrial fibrillation/atrial flutter Secondary cor pulmonale due to pulmonary hypertension Anemia of chronic disease- Fe def , Tsat 4, Defer to primary Labs Labs Laboratory Tests Test 11/15/20 11:09 11/15/20 11:40 11/15/20 12:25 11/15/20 13:00 White Blood Count 15.4 x10^3/uL (4.0-11.0) Red Blood Count 4.73 x10^6/uL (3.50-5.40) Hemoglobin 9.3 g/dL (12.0-15.5) Hematocrit 32.9 % (36.0-47.0) Mean Corpuscular Volume 70 fL (79-100) Mean Corpuscular Hemoglobin 20 pg (25-35) Mean Corpuscular Hemoglobin Concent 28 g/dL (31-37) Red Cell Distribution Width 25.6 % (11.5-14.5) Platelet Count 367 x10^3/uL (140-400) Neutrophils (%) (Auto) 82 % (31-73) Lymphocytes (%) (Auto) 12 % (24-48) Monocytes (%) (Auto) 6 % (0-9) Eosinophils (%) (Auto) 0 % (0-3) Basophils (%) (Auto) 0 % (0-3) Neutrophils # (Auto) 12.6 x10^3/uL (1.8-7.7) Lymphocytes # (Auto) 1.8 x10^3/uL (1.0-4.8) Monocytes # (Auto) 0.9 x10^3/uL (0.0-1.1) Eosinophils # (Auto) 0.0 x10^3/uL (0.0-0.7) Basophils # (Auto) 0.0 x10^3/uL (0.0-0.2) Segmented Neutrophils % 82 % (35-66) Lymphocytes % 11 % (24-48) Monocytes % 7 % (0-10) Nucleated Red Blood Cells 2 Platelet Estimate Adequate (ADEQUATE) Large Platelets Mod Giant Platelets Few Hypochromasia Marked Poikilocytosis Present Anisocytosis Marked Microcytosis Marked Ovalocytes Present Acanthocytes Present RBC Morphology Bizarre Forms Occ Prothrombin Time 54.6 SEC (11.7-14.0) Prothromb Time International Ratio 6.0 (0.8-1.1) Sodium Level 137 mmol/L (136-145) Potassium Level 4.3 mmol/L (3.5-5.1) Chloride Level 94 mmol/L (98-107) Carbon Dioxide Level 6 mmol/L (21-32) Anion Gap 37 (6-14) Blood Urea Nitrogen 29 mg/dL (7-20) Creatinine 2.0 mg/dL (0.6-1.0) Estimated GFR (Cockcroft-Gault) 33.6 BUN/Creatinine Ratio 15 (6-20) Glucose Level 31 mg/dL (70-99) Lactic Acid Level 22.0 mmol/L (0.4-2.0) Calcium Level 10.1 mg/dL (8.5-10.1) Phosphorus Level 8.0 mg/dL (2.6-4.7) Magnesium Level 2.4 mg/dL (1.8-2.4) Total Bilirubin 3.2 mg/dL (0.2-1.0) Aspartate Amino Transf (AST/SGOT) 55 U/L (15-37) Alanine Aminotransferase (ALT/SGPT) 52 U/L (14-59) Alkaline Phosphatase 156 U/L (46-116) Troponin I Quantitative 0.034 ng/mL (0.000-0.055) [id number]-[id number]-Type Natriuretic Peptide 42473 pg/mL (0-124) Total Protein 8.0 g/dL (6.4-8.2) Albumin 3.6 g/dL (3.4-5.0) Albumin/Globulin Ratio 0.8 (1.0-1.7) Procalcitonin 2.08 ng/mL (0.00-0.10) Urine Collection Type Void Urine Color Denita Urine Clarity Cloudy Urine pH 5.0 (<5.0-8.0) Urine Specific [place] 1.015 (1.000-1.030) Urine Protein >=300 mg/dL (NEG-TRACE) Urine Glucose (UA) Negative mg/dL (NEG) Urine Ketones (Stick) Negative mg/dL (NEG) Urine Blood Negative (NEG) Urine Nitrite Negative (NEG) Urine Bilirubin Negative (NEG) Urine Urobilinogen Dipstick 1.0 mg/dL (0.2 mg/dL) Urine Leukocyte Esterase Negative (NEG) Urine RBC Occ /HPF (0-2) Urine WBC 5-10 /HPF (0-4) Urine Squamous Epithelial Cells Many /LPF Urine Amorphous Sediment Present /HPF Urine Bacteria Few /HPF (0-FEW) Urine Hyaline Casts Many /HPF Glucose (Fingerstick) 15 mg/dL (70-99) 72 mg/dL (70-99) Test 11/15/20 14:11 11/15/20 14:48 11/15/20 15:30 11/15/20 18:19 Glucose (Fingerstick) 98 mg/dL (70-99) O2 Saturation 97 % (92-99) Arterial Blood pH 7.16 (7.35-7.45) Arterial Blood pCO2 at Patient Temp < 15 mmHg (35-46) Arterial Blood pO2 at Patient Temp 119 mmHg (75-108) Arterial Blood HCO3 5 mmol/L (21-28) Arterial Blood Base Excess -21 mmol/L (-3-3) FiO2 21 Sodium Level 139 mmol/L (136-145) Potassium Level 4.1 mmol/L (3.5-5.1) Chloride Level 95 mmol/L (98-107) Carbon Dioxide Level < 5 mmol/L (21-32) Anion Gap 39 (6-14) Blood Urea Nitrogen 31 mg/dL (7-20) Creatinine 2.0 mg/dL (0.6-1.0) Estimated GFR (Cockcroft-Gault) 33.6 Glucose Level 124 mg/dL (70-99) Lactic Acid Level 22.1 mmol/L (0.4-2.0) Calcium Level 10.0 mg/dL (8.5-10.1) Troponin I Quantitative 0.018 ng/mL (0.000-0.055) Urine Opiates Screen Neg (NEG) Urine Methadone Screen Neg (NEG) Urine Barbiturates Neg (NEG) Urine Phencyclidine Screen Neg (NEG) Urine Amphetamine/Methamphetamine Neg (NEG) Urine Benzodiazepines Screen Neg (NEG) Urine Cocaine Screen Neg (NEG) Urine Cannabinoids Screen Pos (NEG) Urine Ethyl Alcohol Neg (NEG) Test 11/15/20 20:42 11/15/20 22:50 11/16/20 05:45 O2 Saturation 96 % (92-99) Arterial Blood pH 7.50 (7.35-7.45) Arterial Blood pCO2 at Patient Temp 25 mmHg (35-46) Arterial Blood pO2 at Patient Temp 81 mmHg (75-108) Arterial Blood HCO3 19 mmol/L (21-28) Arterial Blood Base Excess -3 mmol/L (-3-3) FiO2 21 Sodium Level 134 mmol/L (136-145) 134 mmol/L (136-145) Potassium Level 3.3 mmol/L (3.5-5.1) 3.2 mmol/L (3.5-5.1) Chloride Level 94 mmol/L (98-107) 95 mmol/L (98-107) Carbon Dioxide Level 24 mmol/L (21-32) 26 mmol/L (21-32) Anion Gap 16 (6-14) 13 (6-14) Blood Urea Nitrogen 31 mg/dL (7-20) 32 mg/dL (7-20) Creatinine 1.9 mg/dL (0.6-1.0) 1.6 mg/dL (0.6-1.0) Estimated GFR (Cockcroft-Gault) 35.6 43.4 Glucose Level 152 mg/dL (70-99) 87 mg/dL (70-99) Lactic Acid Level 8.1 mmol/L (0.4-2.0) 3.4 mmol/L (0.4-2.0) Calcium Level 9.7 mg/dL (8.5-10.1) 9.5 mg/dL (8.5-10.1) Troponin I Quantitative 0.025 ng/mL (0.000-0.055) White Blood Count 18.8 x10^3/uL (4.0-11.0) Red Blood Count 4.51 x10^6/uL (3.50-5.40) Hemoglobin 8.8 g/dL (12.0-15.5) Hematocrit 29.1 % (36.0-47.0) Mean Corpuscular Volume 65 fL (79-100) Mean Corpuscular Hemoglobin 20 pg (25-35) Mean Corpuscular Hemoglobin Concent 30 g/dL (31-37) Red Cell Distribution Width 25.4 % (11.5-14.5) Platelet Count 293 x10^3/uL (140-400) Neutrophils (%) (Auto) 85 % (31-73) Lymphocytes (%) (Auto) 9 % (24-48) Monocytes (%) (Auto) 6 % (0-9) Eosinophils (%) (Auto) 0 % (0-3) Basophils (%) (Auto) 0 % (0-3) Neutrophils # (Auto) 15.9 x10^3/uL (1.8-7.7) Lymphocytes # (Auto) 1.7 x10^3/uL (1.0-4.8) Monocytes # (Auto) 1.1 x10^3/uL (0.0-1.1) Eosinophils # (Auto) 0.0 x10^3/uL (0.0-0.7) Basophils # (Auto) 0.0 x10^3/uL (0.0-0.2) Prothrombin Time 30.7 SEC (11.7-14.0) Prothromb Time International Ratio 2.9 (0.8-1.1) BUN/Creatinine Ratio 20 (6-20) Phosphorus Level 3.2 mg/dL (2.6-4.7) Magnesium Level 2.2 mg/dL (1.8-2.4) Total Bilirubin 3.0 mg/dL (0.2-1.0) Aspartate Amino Transf (AST/SGOT) 78 U/L (15-37) Alanine Aminotransferase (ALT/SGPT) 54 U/L (14-59) Alkaline Phosphatase 129 U/L (46-116) Total Protein 7.7 g/dL (6.4-8.2) Albumin 3.1 g/dL (3.4-5.0) Albumin/Globulin Ratio 0.7 (1.0-1.7) Laboratory Tests Test 11/15/20 11:09 11/15/20 11:40 11/15/20 12:25 11/15/20 13:00 White Blood Count 15.4 x10^3/uL (4.0-11.0) Red Blood Count 4.73 x10^6/uL (3.50-5.40) Hemoglobin 9.3 g/dL (12.0-15.5) Hematocrit 32.9 % (36.0-47.0) Mean Corpuscular Volume 70 fL (79-100) Mean Corpuscular Hemoglobin 20 pg (25-35) Mean Corpuscular Hemoglobin Concent 28 g/dL (31-37) Red Cell Distribution Width 25.6 % (11.5-14.5) Platelet Count 367 x10^3/uL (140-400) Neutrophils (%) (Auto) 82 % (31-73) Lymphocytes (%) (Auto) 12 % (24-48) Monocytes (%) (Auto) 6 % (0-9) Eosinophils (%) (Auto) 0 % (0-3) Basophils (%) (Auto) 0 % (0-3) Neutrophils # (Auto) 12.6 x10^3/uL (1.8-7.7) Lymphocytes # (Auto) 1.8 x10^3/uL (1.0-4.8) Monocytes # (Auto) 0.9 x10^3/uL (0.0-1.1) Eosinophils # (Auto) 0.0 x10^3/uL (0.0-0.7) Basophils # (Auto) 0.0 x10^3/uL (0.0-0.2) Segmented Neutrophils % 82 % (35-66) Lymphocytes % 11 % (24-48) Monocytes % 7 % (0-10) Nucleated Red Blood Cells 2 Platelet Estimate Adequate (ADEQUATE) Large Platelets Mod Giant Platelets Few Hypochromasia Marked Poikilocytosis Present Anisocytosis Marked Microcytosis Marked Ovalocytes Present Acanthocytes Present RBC Morphology Bizarre Forms Occ Prothrombin Time 54.6 SEC (11.7-14.0) Prothromb Time International Ratio 6.0 (0.8-1.1) Sodium Level 137 mmol/L (136-145) Potassium Level 4.3 mmol/L (3.5-5.1) Chloride Level 94 mmol/L (98-107) Carbon Dioxide Level 6 mmol/L (21-32) Anion Gap 37 (6-14) Blood Urea Nitrogen 29 mg/dL (7-20) Creatinine 2.0 mg/dL (0.6-1.0) Estimated GFR (Cockcroft-Gault) 33.6 BUN/Creatinine Ratio 15 (6-20) Glucose Level 31 mg/dL (70-99) Lactic Acid Level 22.0 mmol/L (0.4-2.0) Calcium Level 10.1 mg/dL (8.5-10.1) Phosphorus Level 8.0 mg/dL (2.6-4.7) Magnesium Level 2.4 mg/dL (1.8-2.4) Total Bilirubin 3.2 mg/dL (0.2-1.0) Aspartate Amino Transf (AST/SGOT) 55 U/L (15-37) Alanine Aminotransferase (ALT/SGPT) 52 U/L (14-59) Alkaline Phosphatase 156 U/L (46-116) Troponin I Quantitative 0.034 ng/mL (0.000-0.055) WO-Kyv-T-Type Natriuretic Peptide 77485 pg/mL (0-124) Total Protein 8.0 g/dL (6.4-8.2) Albumin 3.6 g/dL (3.4-5.0) Albumin/Globulin Ratio 0.8 (1.0-1.7) Procalcitonin 2.08 ng/mL (0.00-0.10) Urine Collection Type Void Urine Color Denita Urine Clarity Cloudy Urine pH 5.0 (<5.0-8.0) Urine Specific [place] 1.015 (1.000-1.030) Urine Protein >=300 mg/dL (NEG-TRACE) Urine Glucose (UA) Negative mg/dL (NEG) Urine Ketones (Stick) Negative mg/dL (NEG) Urine Blood Negative (NEG) Urine Nitrite Negative (NEG) Urine Bilirubin Negative (NEG) Urine Urobilinogen Dipstick 1.0 mg/dL (0.2 mg/dL) Urine Leukocyte Esterase Negative (NEG) Urine RBC Occ /HPF (0-2) Urine WBC 5-10 /HPF (0-4) Urine Squamous Epithelial Cells Many /LPF Urine Amorphous Sediment Present /HPF Urine Bacteria Few /HPF (0-FEW) Urine Hyaline Casts Many /HPF Glucose (Fingerstick) 15 mg/dL (70-99) 72 mg/dL (70-99) Test 11/15/20 14:11 11/15/20 14:48 11/15/20 15:30 11/15/20 18:19 Glucose (Fingerstick) 98 mg/dL (70-99) O2 Saturation 97 % (92-99) Arterial Blood pH 7.16 (7.35-7.45) Arterial Blood pCO2 at Patient Temp < 15 mmHg (35-46) Arterial Blood pO2 at Patient Temp 119 mmHg (75-108) Arterial Blood HCO3 5 mmol/L (21-28) Arterial Blood Base Excess -21 mmol/L (-3-3) FiO2 21 Sodium Level 139 mmol/L (136-145) Potassium Level 4.1 mmol/L (3.5-5.1) Chloride Level 95 mmol/L (98-107) Carbon Dioxide Level < 5 mmol/L (21-32) Anion Gap 39 (6-14) Blood Urea Nitrogen 31 mg/dL (7-20) Creatinine 2.0 mg/dL (0.6-1.0) Estimated GFR (Cockcroft-Gault) 33.6 Glucose Level 124 mg/dL (70-99) Lactic Acid Level 22.1 mmol/L (0.4-2.0) Calcium Level 10.0 mg/dL (8.5-10.1) Troponin I Quantitative 0.018 ng/mL (0.000-0.055) Urine Opiates Screen Neg (NEG) Urine Methadone Screen Neg (NEG) Urine Barbiturates Neg (NEG) Urine Phencyclidine Screen Neg (NEG) Urine Amphetamine/Methamphetamine Neg (NEG) Urine Benzodiazepines Screen Neg (NEG) Urine Cocaine Screen Neg (NEG) Urine Cannabinoids Screen Pos (NEG) Urine Ethyl Alcohol Neg (NEG) Test 11/15/20 20:42 11/15/20 22:50 11/16/20 05:45 O2 Saturation 96 % (92-99) Arterial Blood pH 7.50 (7.35-7.45) Arterial Blood pCO2 at Patient Temp 25 mmHg (35-46) Arterial Blood pO2 at Patient Temp 81 mmHg (75-108) Arterial Blood HCO3 19 mmol/L (21-28) Arterial Blood Base Excess -3 mmol/L (-3-3) FiO2 21 Sodium Level 134 mmol/L (136-145) 134 mmol/L (136-145) Potassium Level 3.3 mmol/L (3.5-5.1) 3.2 mmol/L (3.5-5.1) Chloride Level 94 mmol/L (98-107) 95 mmol/L (98-107) Carbon Dioxide Level 24 mmol/L (21-32) 26 mmol/L (21-32) Anion Gap 16 (6-14) 13 (6-14) Blood Urea Nitrogen 31 mg/dL (7-20) 32 mg/dL (7-20) Creatinine 1.9 mg/dL (0.6-1.0) 1.6 mg/dL (0.6-1.0) Estimated GFR (Cockcroft-Gault) 35.6 43.4 Glucose Level 152 mg/dL (70-99) 87 mg/dL (70-99) Lactic Acid Level 8.1 mmol/L (0.4-2.0) 3.4 mmol/L (0.4-2.0) Calcium Level 9.7 mg/dL (8.5-10.1) 9.5 mg/dL (8.5-10.1) Troponin I Quantitative 0.025 ng/mL (0.000-0.055) White Blood Count 18.8 x10^3/uL (4.0-11.0) Red Blood Count 4.51 x10^6/uL (3.50-5.40) Hemoglobin 8.8 g/dL (12.0-15.5) Hematocrit 29.1 % (36.0-47.0) Mean Corpuscular Volume 65 fL (79-100) Mean Corpuscular Hemoglobin 20 pg (25-35) Mean Corpuscular Hemoglobin Concent 30 g/dL (31-37) Red Cell Distribution Width 25.4 % (11.5-14.5) Platelet Count 293 x10^3/uL (140-400) Neutrophils (%) (Auto) 85 % (31-73) Lymphocytes (%) (Auto) 9 % (24-48) Monocytes (%) (Auto) 6 % (0-9) Eosinophils (%) (Auto) 0 % (0-3) Basophils (%) (Auto) 0 % (0-3) Neutrophils # (Auto) 15.9 x10^3/uL (1.8-7.7) Lymphocytes # (Auto) 1.7 x10^3/uL (1.0-4.8) Monocytes # (Auto) 1.1 x10^3/uL (0.0-1.1) Eosinophils # (Auto) 0.0 x10^3/uL (0.0-0.7) Basophils # (Auto) 0.0 x10^3/uL (0.0-0.2) Prothrombin Time 30.7 SEC (11.7-14.0) Prothromb Time International Ratio 2.9 (0.8-1.1) BUN/Creatinine Ratio 20 (6-20) Phosphorus Level 3.2 mg/dL (2.6-4.7) Magnesium Level 2.2 mg/dL (1.8-2.4) Total Bilirubin 3.0 mg/dL (0.2-1.0) Aspartate Amino Transf (AST/SGOT) 78 U/L (15-37) Alanine Aminotransferase (ALT/SGPT) 54 U/L (14-59) Alkaline Phosphatase 129 U/L (46-116) Total Protein 7.7 g/dL (6.4-8.2) Albumin 3.1 g/dL (3.4-5.0) Albumin/Globulin Ratio 0.7 (1.0-1.7) Review All relevant outside records, renal labs, imaging studies, telemetry/EKG's were reviewed. Images Images CT chest/ abdomen Heart size is normal. No pericardial effusion. Moderate right pleural effusion. Hazy opacities the lung. Evaluation of the solid organs is limited secondary to noncontrast technique. Liver, spleen, pancreas, gallbladder and adrenals are unremarkable. No perinephric inflammation or hydronephrosis. No renal or ureteral calculi are identified. Bladder is decompressed not well evaluated. Uterus is nonenlarged. No abnormal adnexal mass. There is diffuse wall thickening involving the ascending colon with mild adjacent fluid. Appendix is normal. No free intra-abdominal air. Abdominal aorta has a normal course and caliber. No enlarged abdominal lymph nodes are identified. No suspicious osseous lesions or acute fractures. IMPRESSION: 1. Diffuse wall thickening at the ascending colon, favored represent colitis. This may be infectious or inflammatory in etiology. 2. Moderate right and small left pleural effusion with hazy adjacent airspace disease may relate to pulmonary edema. FRANCO WADE MD Nov 16, 2020 09:55
[2020-11-16] MEDS: IV DEXTROSE 5 %-0.45 % NACL 1,000 ML IV SCH (11:01)
--- NOTE | 2020-11-16 11:31 | PDOC ---
Infectious Disease Note Vital Signs: Vital Signs Vital Signs Date Time Temp Pulse Resp B/P (MAP) Pulse Ox O2 Delivery O2 Flow Rate FiO2 11/16/20 11:00 98.2 114 22 114/58 (76) 100 Room Air 98.2 11/16/20 07:00 Medications: Inpatient Meds: Current Medications Medications (Trade) Dose Ordered Sig/Kailey Start Time Stop Time Status Last Admin Dose Admin Acetaminophen (Tylenol) 650 mg PRN Q4HRS PRN 11/15/20 16:15 Amiodarone HCl (Cordarone) 200 mg DAILY 11/16/20 09:00 11/15/20 16:38 DC Aspirin (Tatianna Aspirin) 325 mg DAILY 11/16/20 09:00 11/15/20 16:38 DC Cefepime HCl (Maxipime) 2 gm Q24H 11/15/20 17:00 11/15/20 16:46 2 GM Citalopram Hydrobromide (CeleXA) 40 mg DAILY 11/16/20 09:00 11/16/20 09:28 40 MG Dextrose (Dextrose 50%-Water Syringe) 12.5 gm PRN Q15MIN PRN 11/15/20 16:15 Dextrose/Sodium Chloride 1,000 ml @ 50 mls/hr Q20H 11/15/20 16:00 11/16/20 11:01 50 MLS/HR Docusate Sodium (Colace) 100 mg PRN DAILY PRN 11/15/20 16:15 Fentanyl Citrate (Fentanyl 2ml Vial) 50 mcg PRN Q1HR PRN 11/15/20 13:00 11/16/20 12:59 Fluticasone Propionate (Flonase) 2 spray DAILY 11/16/20 09:00 11/16/20 09:29 2 SPRAY Furosemide (Lasix) 40 mg 1X ONCE 11/15/20 10:15 11/15/20 10:22 DC 11/15/20 11:16 40 MG Gabapentin (Neurontin) 600 mg BID 11/15/20 21:00 11/16/20 09:27 600 MG Heparin Sodium (Porcine) (Heparin Sodium) 5,000 unit Q12HR 11/15/20 21:00 11/15/20 16:17 DC Metoprolol Tartrate (Lopressor) 50 mg BID 11/16/20 09:15 11/16/20 09:29 50 MG Metronidazole 100 ml @ 100 mls/hr Q12HR 11/15/20 21:00 11/16/20 09:30 100 MLS/HR Ondansetron HCl (Zofran) 4 mg PRN Q6HRS PRN 11/15/20 16:15 Pantoprazole Sodium (Protonix) 40 mg DAILYAC 11/16/20 07:30 11/16/20 09:28 40 MG Piperacillin Sod/ Tazobactam Sod 3.375 gm/Sodium Chloride 50 ml @ 100 mls/hr 1X ONCE 11/15/20 13:00 11/15/20 13:29 DC 11/15/20 13:05 100 MLS/HR Sennosides (Senna) 17.2 mg PRN BID PRN 11/15/20 16:15 Sodium Bicarbonate (Sodium Bicarb Adult 8.4% Syr) 100 meq 1X ONCE 11/15/20 15:30 11/15/20 15:31 DC 11/15/20 16:43 100 MEQ Thiamine Mononitrate (Vitamin B-1) 300 mg DAILY 11/15/20 16:30 11/15/20 16:22 DC Thiamine HCl 300 mg/Dextrose 53 ml @ 102 mls/hr Q8HRS 11/15/20 22:00 11/16/20 06:28 102 MLS/HR Vancomycin HCl (Vanco Per Pharmacy) 1 each PRN DAILY PRN 11/15/20 16:15 11/16/20 11:05 DC Vancomycin HCl 2 gm/Sodium Chloride 500 ml @ 250 mls/hr 1X ONCE 11/15/20 13:00 11/15/20 14:59 DC 11/15/20 13:37 250 MLS/HR Labs: Lab Laboratory Tests Test 11/15/20 11:40 11/15/20 12:25 11/15/20 13:00 11/15/20 14:11 Urine Collection Type Void Urine Color Denita Urine Clarity Cloudy Urine pH 5.0 (<5.0-8.0) Urine Specific [place] 1.015 (1.000-1.030) Urine Protein >=300 mg/dL (NEG-TRACE) Urine Glucose (UA) Negative mg/dL (NEG) Urine Ketones (Stick) Negative mg/dL (NEG) Urine Blood Negative (NEG) Urine Nitrite Negative (NEG) Urine Bilirubin Negative (NEG) Urine Urobilinogen Dipstick 1.0 mg/dL (0.2 mg/dL) Urine Leukocyte Esterase Negative (NEG) Urine RBC Occ /HPF (0-2) Urine WBC 5-10 /HPF (0-4) Urine Squamous Epithelial Cells Many /LPF Urine Amorphous Sediment Present /HPF Urine Bacteria Few /HPF (0-FEW) Urine Hyaline Casts Many /HPF Glucose (Fingerstick) 15 mg/dL (70-99) 72 mg/dL (70-99) 98 mg/dL (70-99) Test 11/15/20 14:48 11/15/20 15:30 11/15/20 18:19 11/15/20 20:42 O2 Saturation 97 % (92-99) 96 % (92-99) Arterial Blood pH 7.16 (7.35-7.45) 7.50 (7.35-7.45) Arterial Blood pCO2 at Patient Temp < 15 mmHg (35-46) 25 mmHg (35-46) Arterial Blood pO2 at Patient Temp 119 mmHg (75-108) 81 mmHg (75-108) Arterial Blood HCO3 5 mmol/L (21-28) 19 mmol/L (21-28) Arterial Blood Base Excess -21 mmol/L (-3-3) -3 mmol/L (-3-3) FiO2 21 21 Sodium Level 139 mmol/L (136-145) Potassium Level 4.1 mmol/L (3.5-5.1) Chloride Level 95 mmol/L (98-107) Carbon Dioxide Level < 5 mmol/L (21-32) Anion Gap 39 (6-14) Blood Urea Nitrogen 31 mg/dL (7-20) Creatinine 2.0 mg/dL (0.6-1.0) Estimated GFR (Cockcroft-Gault) 33.6 Glucose Level 124 mg/dL (70-99) Lactic Acid Level 22.1 mmol/L (0.4-2.0) Calcium Level 10.0 mg/dL (8.5-10.1) Troponin I Quantitative 0.018 ng/mL (0.000-0.055) Urine Opiates Screen Neg (NEG) Urine Methadone Screen Neg (NEG) Urine Barbiturates Neg (NEG) Urine Phencyclidine Screen Neg (NEG) Urine Amphetamine/Methamphetamine Neg (NEG) Urine Benzodiazepines Screen Neg (NEG) Urine Cocaine Screen Neg (NEG) Urine Cannabinoids Screen Pos (NEG) Urine Ethyl Alcohol Neg (NEG) Test 11/15/20 22:50 11/16/20 05:45 Sodium Level 134 mmol/L (136-145) 134 mmol/L (136-145) Potassium Level 3.3 mmol/L (3.5-5.1) 3.2 mmol/L (3.5-5.1) Chloride Level 94 mmol/L (98-107) 95 mmol/L (98-107) Carbon Dioxide Level 24 mmol/L (21-32) 26 mmol/L (21-32) Anion Gap 16 (6-14) 13 (6-14) Blood Urea Nitrogen 31 mg/dL (7-20) 32 mg/dL (7-20) Creatinine 1.9 mg/dL (0.6-1.0) 1.6 mg/dL (0.6-1.0) Estimated GFR (Cockcroft-Gault) 35.6 43.4 Glucose Level 152 mg/dL (70-99) 87 mg/dL (70-99) Lactic Acid Level 8.1 mmol/L (0.4-2.0) 3.4 mmol/L (0.4-2.0) Calcium Level 9.7 mg/dL (8.5-10.1) 9.5 mg/dL (8.5-10.1) Troponin I Quantitative 0.025 ng/mL (0.000-0.055) White Blood Count 18.8 x10^3/uL (4.0-11.0) Red Blood Count 4.51 x10^6/uL (3.50-5.40) Hemoglobin 8.8 g/dL (12.0-15.5) Hematocrit 29.1 % (36.0-47.0) Mean Corpuscular Volume 65 fL (79-100) Mean Corpuscular Hemoglobin 20 pg (25-35) Mean Corpuscular Hemoglobin Concent 30 g/dL (31-37) Red Cell Distribution Width 25.4 % (11.5-14.5) Platelet Count 293 x10^3/uL (140-400) Neutrophils (%) (Auto) 85 % (31-73) Lymphocytes (%) (Auto) 9 % (24-48) Monocytes (%) (Auto) 6 % (0-9) Eosinophils (%) (Auto) 0 % (0-3) Basophils (%) (Auto) 0 % (0-3) Neutrophils # (Auto) 15.9 x10^3/uL (1.8-7.7) Lymphocytes # (Auto) 1.7 x10^3/uL (1.0-4.8) Monocytes # (Auto) 1.1 x10^3/uL (0.0-1.1) Eosinophils # (Auto) 0.0 x10^3/uL (0.0-0.7) Basophils # (Auto) 0.0 x10^3/uL (0.0-0.2) Prothrombin Time 30.7 SEC (11.7-14.0) Prothromb Time International Ratio 2.9 (0.8-1.1) BUN/Creatinine Ratio 20 (6-20) Phosphorus Level 3.2 mg/dL (2.6-4.7) Magnesium Level 2.2 mg/dL (1.8-2.4) Total Bilirubin 3.0 mg/dL (0.2-1.0) Aspartate Amino Transf (AST/SGOT) 78 U/L (15-37) Alanine Aminotransferase (ALT/SGPT) 54 U/L (14-59) Alkaline Phosphatase 129 U/L (46-116) Total Protein 7.7 g/dL (6.4-8.2) Albumin 3.1 g/dL (3.4-5.0) Albumin/Globulin Ratio 0.7 (1.0-1.7) Objective: Assessment: Patient seen and examined ID consult to follow [id number] Impression Severe sepsis appears multifactorial Acute respiratory failure Acute on chronic CHF KENNETH with severe metabolic acidosis CT abdomen with colitis Abdominal pain Coagulopathy Abnormal LFTs A. fib/flutter Valve insufficiency Plan: Plan of Care Continue cefepime and Flagyl Monitor labs and cultures Continue supportive care Multispecialty team specialty team following and evaluating patient Discussed with nursing staff MEGAN MEHTA MD Nov 16, 2020 11:31
--- NOTE | 2020-11-16 11:34 | PDOC ---
[employer] PROGRESS NOTE Date of Service DOS: DATE: 11/16/20 TIME: 11:32 Chief Complaint Chief Complaint Sepsis Colitis Severe lactic acidosis Acute respiratory failure concern for CAP Acute on chronic CHF exacerbation last echo in July 2020 showed EF of 60-65% and severely dilated right ventricle Lactic acidosis Severe symptomatic hypoglycemia KENNETH due to vasomotor nephropathy Acute volume overload Coagulopathy History of atrial fibrillation/atrial flutter Secondary cor pulmonale due to pulmonary hypertension Anemia of chronic disease History of Present Illness History of Present Illness 11/16/2020 Patient seen and examined in the ICU CT abdomen reviewed looks like she has some possible colitis Lactic acid has decreased from 22 down to 8 Discussed with RN Discussed with case management Chart reviewed Vitals/I&O Vitals/I&O: Vital Signs Date Time Temp Pulse Resp B/P (MAP) Pulse Ox O2 Delivery O2 Flow Rate FiO2 11/16/20 11:30 Room Air 11/16/20 11:00 98.2 114 22 114/58 (76) 100 98.2 11/16/20 07:00 I & O 11/15/20 11/15/20 11/16/20 15:00 23:00 07:00 Intake Total 50 ml 629 ml 1475 ml Output Total 1560 ml 75 ml Balance 50 ml -931 ml 1400 ml Physical Exam General: Alert, Oriented X3, Cooperative Heart: Regular rate Lungs: Clear Abdomen: No tenderness Extremities: No clubbing Skin: No rashes Labs Labs: Laboratory Tests Test 11/15/20 11:40 11/15/20 12:25 11/15/20 13:00 11/15/20 14:11 Urine Collection Type Void Urine Color Denita Urine Clarity Cloudy Urine pH 5.0 (<5.0-8.0) Urine Specific [place] 1.015 (1.000-1.030) Urine Protein >=300 mg/dL (NEG-TRACE) Urine Glucose (UA) Negative mg/dL (NEG) Urine Ketones (Stick) Negative mg/dL (NEG) Urine Blood Negative (NEG) Urine Nitrite Negative (NEG) Urine Bilirubin Negative (NEG) Urine Urobilinogen Dipstick 1.0 mg/dL (0.2 mg/dL) Urine Leukocyte Esterase Negative (NEG) Urine RBC Occ /HPF (0-2) Urine WBC 5-10 /HPF (0-4) Urine Squamous Epithelial Cells Many /LPF Urine Amorphous Sediment Present /HPF Urine Bacteria Few /HPF (0-FEW) Urine Hyaline Casts Many /HPF Glucose (Fingerstick) 15 mg/dL (70-99) 72 mg/dL (70-99) 98 mg/dL (70-99) Test 11/15/20 14:48 11/15/20 15:30 11/15/20 18:19 11/15/20 20:42 O2 Saturation 97 % (92-99) 96 % (92-99) Arterial Blood pH 7.16 (7.35-7.45) 7.50 (7.35-7.45) Arterial Blood pCO2 at Patient Temp < 15 mmHg (35-46) 25 mmHg (35-46) Arterial Blood pO2 at Patient Temp 119 mmHg (75-108) 81 mmHg (75-108) Arterial Blood HCO3 5 mmol/L (21-28) 19 mmol/L (21-28) Arterial Blood Base Excess -21 mmol/L (-3-3) -3 mmol/L (-3-3) FiO2 21 21 Sodium Level 139 mmol/L (136-145) Potassium Level 4.1 mmol/L (3.5-5.1) Chloride Level 95 mmol/L (98-107) Carbon Dioxide Level < 5 mmol/L (21-32) Anion Gap 39 (6-14) Blood Urea Nitrogen 31 mg/dL (7-20) Creatinine 2.0 mg/dL (0.6-1.0) Estimated GFR (Cockcroft-Gault) 33.6 Glucose Level 124 mg/dL (70-99) Lactic Acid Level 22.1 mmol/L (0.4-2.0) Calcium Level 10.0 mg/dL (8.5-10.1) Troponin I Quantitative 0.018 ng/mL (0.000-0.055) Urine Opiates Screen Neg (NEG) Urine Methadone Screen Neg (NEG) Urine Barbiturates Neg (NEG) Urine Phencyclidine Screen Neg (NEG) Urine Amphetamine/Methamphetamine Neg (NEG) Urine Benzodiazepines Screen Neg (NEG) Urine Cocaine Screen Neg (NEG) Urine Cannabinoids Screen Pos (NEG) Urine Ethyl Alcohol Neg (NEG) Test 11/15/20 22:50 11/16/20 05:45 Sodium Level 134 mmol/L (136-145) 134 mmol/L (136-145) Potassium Level 3.3 mmol/L (3.5-5.1) 3.2 mmol/L (3.5-5.1) Chloride Level 94 mmol/L (98-107) 95 mmol/L (98-107) Carbon Dioxide Level 24 mmol/L (21-32) 26 mmol/L (21-32) Anion Gap 16 (6-14) 13 (6-14) Blood Urea Nitrogen 31 mg/dL (7-20) 32 mg/dL (7-20) Creatinine 1.9 mg/dL (0.6-1.0) 1.6 mg/dL (0.6-1.0) Estimated GFR (Cockcroft-Gault) 35.6 43.4 Glucose Level 152 mg/dL (70-99) 87 mg/dL (70-99) Lactic Acid Level 8.1 mmol/L (0.4-2.0) 3.4 mmol/L (0.4-2.0) Calcium Level 9.7 mg/dL (8.5-10.1) 9.5 mg/dL (8.5-10.1) Troponin I Quantitative 0.025 ng/mL (0.000-0.055) White Blood Count 18.8 x10^3/uL (4.0-11.0) Red Blood Count 4.51 x10^6/uL (3.50-5.40) Hemoglobin 8.8 g/dL (12.0-15.5) Hematocrit 29.1 % (36.0-47.0) Mean Corpuscular Volume 65 fL (79-100) Mean Corpuscular Hemoglobin 20 pg (25-35) Mean Corpuscular Hemoglobin Concent 30 g/dL (31-37) Red Cell Distribution Width 25.4 % (11.5-14.5) Platelet Count 293 x10^3/uL (140-400) Neutrophils (%) (Auto) 85 % (31-73) Lymphocytes (%) (Auto) 9 % (24-48) Monocytes (%) (Auto) 6 % (0-9) Eosinophils (%) (Auto) 0 % (0-3) Basophils (%) (Auto) 0 % (0-3) Neutrophils # (Auto) 15.9 x10^3/uL (1.8-7.7) Lymphocytes # (Auto) 1.7 x10^3/uL (1.0-4.8) Monocytes # (Auto) 1.1 x10^3/uL (0.0-1.1) Eosinophils # (Auto) 0.0 x10^3/uL (0.0-0.7) Basophils # (Auto) 0.0 x10^3/uL (0.0-0.2) Prothrombin Time 30.7 SEC (11.7-14.0) Prothromb Time International Ratio 2.9 (0.8-1.1) BUN/Creatinine Ratio 20 (6-20) Phosphorus Level 3.2 mg/dL (2.6-4.7) Magnesium Level 2.2 mg/dL (1.8-2.4) Total Bilirubin 3.0 mg/dL (0.2-1.0) Aspartate Amino Transf (AST/SGOT) 78 U/L (15-37) Alanine Aminotransferase (ALT/SGPT) 54 U/L (14-59) Alkaline Phosphatase 129 U/L (46-116) Total Protein 7.7 g/dL (6.4-8.2) Albumin 3.1 g/dL (3.4-5.0) Albumin/Globulin Ratio 0.7 (1.0-1.7) Assessment and Plan Assessmemt and Plan Problems Medical Problems: (1) KENNETH (acute kidney injury) Status: Acute (2) Atrial fibrillation with RVR Status: Acute (3) CHF (congestive heart failure) Status: Acute (4) Hypoglycemia Status: Acute (5) Pneumonia Status: Acute Sepsis Acute respiratory failure concern for CAP Acute on chronic CHF exacerbation last echo in July 2020 showed EF of 60-65% and severely dilated right ventricle Lactic acidosis Severe symptomatic hypoglycemia KENNETH due to vasomotor nephropathy Acute volume overload Coagulopathy History of atrial fibrillation/atrial flutter Secondary cor pulmonale due to pulmonary hypertension Anemia of chronic disease Plan ICU monitoring IV antibiotics Trend labs Cardiology and nephrology consultation Strict I's and O's Sky to bedside drainage Diurese Continue telemetry monitoring for atrial fibrillation Continue amiodarone Continue IV empiric antibiotics Heparin for DVT prophylaxis Protonix for GI prophylaxis ADA diet Full code Discussed with RN and GONZALO CC time 31 minutes Comment Review of Relevant I have reviewed the following items josé (where applicable) has been applied. Medications: Current Medications Medications (Trade) Dose Ordered Sig/Kailey Route PRN Reason Start Time Stop Time Status Last Admin Dose Admin Vancomycin HCl 2 gm/Sodium Chloride 500 ml @ 250 mls/hr 1X ONCE IV 11/15/20 13:00 11/15/20 14:59 DC 11/15/20 13:37 Piperacillin Sod/ Tazobactam Sod 3.375 gm/Sodium Chloride 50 ml @ 100 mls/hr 1X ONCE IV 11/15/20 13:00 11/15/20 13:29 DC 11/15/20 13:05 Dextrose (Dextrose 50%-Water Syringe) 25 gm 1X ONCE IV 11/15/20 12:45 11/15/20 12:46 DC 11/15/20 12:35 Dextrose/Sodium Chloride 1,000 ml @ 50 mls/hr Q20H IV 11/15/20 16:00 11/16/20 11:01 Sodium Bicarbonate (Sodium Bicarb Adult 8.4% Syr) 100 meq 1X ONCE IV 11/15/20 15:30 11/15/20 15:31 DC 11/15/20 16:43 Cefepime HCl (Maxipime) 2 gm Q24H IVP 11/15/20 17:00 11/15/20 16:46 Fluticasone Propionate (Flonase) 2 spray DAILY NS 11/16/20 09:00 11/16/20 09:29 Gabapentin (Neurontin) 600 mg BID PO 11/15/20 21:00 11/16/20 09:27 Metoprolol Tartrate (Lopressor) 25 mg BID PO 11/15/20 21:00 11/16/20 09:08 DC 11/15/20 21:28 Citalopram Hydrobromide (CeleXA) 40 mg DAILY PO 11/16/20 09:00 11/16/20 09:28 Pantoprazole Sodium (Protonix) 40 mg DAILYAC PO 11/16/20 07:30 11/16/20 09:28 Thiamine HCl 300 mg/Dextrose 53 ml @ 102 mls/hr Q8HRS IV 11/15/20 22:00 11/16/20 06:28 Metronidazole 100 ml @ 100 mls/hr Q12HR IV 11/15/20 21:00 11/16/20 09:30 Metoprolol Tartrate (Lopressor) 50 mg BID PO 2/10/21 09:15 11/16/20 09:29 Justifications for Admission Other Justification chf exacerbation GARETH SOLITARIO III DO Nov 16, 2020 11:34
[2020-11-16] MEDS ORDERED: LIDOCAINE 2% TOPICAL JELLY 5GM TUBE. TP ONE (12:00)
--- NOTE | 2020-11-16 13:28 | RAD ---
Chest AP portable at 1246: Reason for examination: Verify PICC placement. Comparison is made to previous study dated 11/15/2020 at 1013. PICC line is present on the right with the tip in the region of the superior vena cava/right atrium. Postop changes seen in the sternum. The heart size continues to be enlarged. Mediastinum is unchanged . Lung elise continue show hazy opacification in the right lower lobe with a small right pleural eff usion which is not changed. Left lung field is relatively clear. No acute bony abnormalities are seen . IMPRESSION: Right PICC line in satisfactory position. Stable cardiomegaly. Persistent hazy opacification in the right lower lobe with a small right pleural effusion without sig nificant change. Electronically signed by: Barbara Duncan MD (11/16/2020 1:26 PM) RACHEL
--- NOTE | 2020-11-16 13:39 | CONS ---
DATE OF CONSULTATION: 11/16/2020 INFECTIOUS DISEASE CONSULTATION REFERRING PHYSICIAN: Dr. Ferguson. REASON FOR CONSULTATION: Antibiotic management. HISTORY OF PRESENT ILLNESS: A 39-year-old female with history of asthma, diastolic CHF, dyslipidemia, ASD, status post open repair in 2014, pulmonary hypertension, who presented to the ER with worsening shortness of breath and pleural swelling, some abdominal discomfort. She denied any sick contact. Denies any fevers, chills. Did have some upset stomach, some associated headache. No sick contact. She was hypothermic. White count of 15.4, bicarbonate of 6, creatinine of 2.0. Lactate of 22.0. Procalcitonin was 2.08. UA showed 5-10 wbc's. UDS was negative. Chest x-ray showed right lung base opacities, likely pneumonia. Abdominal and pelvic CT showed diffuse wall thickening of the ascending colon, favored represent colitis, inflammatory or infectious in etiology. The patient was started on IV vancomycin and cefepime. I stopped the IV vancomycin, did add Flagyl last night. Cultures are nonrevealing so far. This morning, the patient states she feels better. Her shortness of breath is improved. Denies any fevers, chills, has some nausea. Lactate has come down to 8 from 22. Discussed with RN. PAST MEDICAL HISTORY: Asthma, bronchitis, CHF, hyperlipidemia, hypertension, bulging disc, heart valve leaks, neuropathy. PAST SURGICAL HISTORY: Tailbone cyst, ASD repair, PFO closure. ALLERGIES: IBUPROFEN. FAMILY HISTORY: As per HPI. SOCIAL HISTORY: Former smoker, occasional alcohol, marijuana use. CURRENT MEDICATION: IV cefepime, Flagyl, IV vancomycin p.r.n. The patient also received a dose of Zosyn in the ER, amiodarone. REVIEW OF SYSTEMS: Negative except for above in HPI. PHYSICAL EXAMINATION: VITAL SIGNS: Temperature 98.2, pulse 114, respiratory rate 22, blood pressure 114/58, oxygen saturation 100% on room air. GENERAL: Alert, oriented x 3 female, lying in bed comfortably, in no acute distress. HEENT: Normocephalic, atraumatic, anicteric. NECK: Supple. LUNGS: Rales bibasilarly; otherwise clear. No accessory muscle use. HEART: Irregular. ABDOMEN: Soft, mildly tender, nondistended, no rebound or guarding. EXTREMITIES: Trace edema bilaterally. NEUROLOGIC: Alert, oriented x 3, grossly nonfocal. PSYCHIATRIC: Cooperative, appropriate mood and affect. BACK: Reveals normal curvature. No CVA tenderness. No Sky. LABORATORY DATA: WBC 18.8, hemoglobin 8.8, hematocrit 29.1, platelets 293. Lactate is 3.4. Sodium 134, potassium 3.2, chloride 95, bicarbonate 26, BUN 32, creatinine 1.6, glucose 87, total bilirubin 3.0, AST 78, alkaline phosphatase 179. IMAGING: CT abdomen and pelvis as above, diffuse thickening of the ascending colon favoring colitis, moderate right and left pleural effusion. Chest x-ray as above. IMPRESSION: 1. Severe sepsis, improving. 2. Leukocytosis and lactic acidosis. Source appears multifactorial. Improving 3. Acute kidney injury with severe metabolic acidosis. 4. Abdominal pain, intermittent nausea.Colitis on CT abdomen 5. Atrial fibrillation/flutter. 6. Acute on chronic congestive heart failure. 7. Coagulopathy. 8. Abnormal liver function tests 9. Acute respiratory failure with bilateral pleural infiltrates and bilateral pleural effusion, right greater than left. 10. Pulmonary hypertension. 11. Valvular insufficiency. MR 12. History of PFO closure. RECOMMENDATIONS: 1. Discontinue IV vancomycin due to KENNETH. 2. Continue cefepime and Flagyl. 3. Monitor labs and cultures. 4. Maintain aspiration precaution. 5. Continue supportive care. 6. If pt has diarrhea check stool for c diff and stool cultures Discussed with RN. Thank you for allowing me to participate in this patient's care. If you have any questions, do not hesitate to contact me. MEGAN MEHTA MD DR: VALERIA/megan JOB#: [id number] / [id number] JEY
[2020-11-16] MEDS ORDERED: POTASSIUM CHLORIDE 20 MEQ TABLET.ER. PO ONE (14:00)
[2020-11-16] MEDS ORDERED: FUROSEMIDE 40 MG/4 ML VIAL. IVP ONE (14:00)
--- NOTE | 2020-11-16 14:15 | PDOC ---
PULMONARY PROGRESS NOTES DATE: 11/16/20 TIME: 14:14 Vitals Vital Signs Date Time Temp Pulse Resp B/P (MAP) Pulse Ox O2 Delivery O2 Flow Rate FiO2 11/16/20 13:00 112 20 98/81 (87) 100 Room Air 11/16/20 11:00 98.2 98.2 11/16/20 07:00 Lungs: Clear Labs Laboratory Tests Test 11/15/20 11:09 11/15/20 11:40 11/15/20 12:25 11/15/20 13:00 White Blood Count 15.4 x10^3/uL (4.0-11.0) Red Blood Count 4.73 x10^6/uL (3.50-5.40) Hemoglobin 9.3 g/dL (12.0-15.5) Hematocrit 32.9 % (36.0-47.0) Mean Corpuscular Volume 70 fL (79-100) Mean Corpuscular Hemoglobin 20 pg (25-35) Mean Corpuscular Hemoglobin Concent 28 g/dL (31-37) Red Cell Distribution Width 25.6 % (11.5-14.5) Platelet Count 367 x10^3/uL (140-400) Neutrophils (%) (Auto) 82 % (31-73) Lymphocytes (%) (Auto) 12 % (24-48) Monocytes (%) (Auto) 6 % (0-9) Eosinophils (%) (Auto) 0 % (0-3) Basophils (%) (Auto) 0 % (0-3) Neutrophils # (Auto) 12.6 x10^3/uL (1.8-7.7) Lymphocytes # (Auto) 1.8 x10^3/uL (1.0-4.8) Monocytes # (Auto) 0.9 x10^3/uL (0.0-1.1) Eosinophils # (Auto) 0.0 x10^3/uL (0.0-0.7) Basophils # (Auto) 0.0 x10^3/uL (0.0-0.2) Segmented Neutrophils % 82 % (35-66) Lymphocytes % 11 % (24-48) Monocytes % 7 % (0-10) Nucleated Red Blood Cells 2 Platelet Estimate Adequate (ADEQUATE) Large Platelets Mod Giant Platelets Few Hypochromasia Marked Poikilocytosis Present Anisocytosis Marked Microcytosis Marked Ovalocytes Present Acanthocytes Present RBC Morphology Bizarre Forms Occ Prothrombin Time 54.6 SEC (11.7-14.0) Prothromb Time International Ratio 6.0 (0.8-1.1) Sodium Level 137 mmol/L (136-145) Potassium Level 4.3 mmol/L (3.5-5.1) Chloride Level 94 mmol/L (98-107) Carbon Dioxide Level 6 mmol/L (21-32) Anion Gap 37 (6-14) Blood Urea Nitrogen 29 mg/dL (7-20) Creatinine 2.0 mg/dL (0.6-1.0) Estimated GFR (Cockcroft-Gault) 33.6 BUN/Creatinine Ratio 15 (6-20) Glucose Level 31 mg/dL (70-99) Lactic Acid Level 22.0 mmol/L (0.4-2.0) Calcium Level 10.1 mg/dL (8.5-10.1) Phosphorus Level 8.0 mg/dL (2.6-4.7) Magnesium Level 2.4 mg/dL (1.8-2.4) Total Bilirubin 3.2 mg/dL (0.2-1.0) Aspartate Amino Transf (AST/SGOT) 55 U/L (15-37) Alanine Aminotransferase (ALT/SGPT) 52 U/L (14-59) Alkaline Phosphatase 156 U/L (46-116) Troponin I Quantitative 0.034 ng/mL (0.000-0.055) OH-Kny-N-Type Natriuretic Peptide 84231 pg/mL (0-124) Total Protein 8.0 g/dL (6.4-8.2) Albumin 3.6 g/dL (3.4-5.0) Albumin/Globulin Ratio 0.8 (1.0-1.7) Procalcitonin 2.08 ng/mL (0.00-0.10) Urine Collection Type Void Urine Color Denita Urine Clarity Cloudy Urine pH 5.0 (<5.0-8.0) Urine Specific Barre 1.015 (1.000-1.030) Urine Protein >=300 mg/dL (NEG-TRACE) Urine Glucose (UA) Negative mg/dL (NEG) Urine Ketones (Stick) Negative mg/dL (NEG) Urine Blood Negative (NEG) Urine Nitrite Negative (NEG) Urine Bilirubin Negative (NEG) Urine Urobilinogen Dipstick 1.0 mg/dL (0.2 mg/dL) Urine Leukocyte Esterase Negative (NEG) Urine RBC Occ /HPF (0-2) Urine WBC 5-10 /HPF (0-4) Urine Squamous Epithelial Cells Many /LPF Urine Amorphous Sediment Present /HPF Urine Bacteria Few /HPF (0-FEW) Urine Hyaline Casts Many /HPF Glucose (Fingerstick) 15 mg/dL (70-99) 72 mg/dL (70-99) Test 11/15/20 14:11 11/15/20 14:48 11/15/20 15:30 11/15/20 18:19 Glucose (Fingerstick) 98 mg/dL (70-99) O2 Saturation 97 % (92-99) Arterial Blood pH 7.16 (7.35-7.45) Arterial Blood pCO2 at Patient Temp < 15 mmHg (35-46) Arterial Blood pO2 at Patient Temp 119 mmHg (75-108) Arterial Blood HCO3 5 mmol/L (21-28) Arterial Blood Base Excess -21 mmol/L (-3-3) FiO2 21 Sodium Level 139 mmol/L (136-145) Potassium Level 4.1 mmol/L (3.5-5.1) Chloride Level 95 mmol/L (98-107) Carbon Dioxide Level < 5 mmol/L (21-32) Anion Gap 39 (6-14) Blood Urea Nitrogen 31 mg/dL (7-20) Creatinine 2.0 mg/dL (0.6-1.0) Estimated GFR (Cockcroft-Gault) 33.6 Glucose Level 124 mg/dL (70-99) Lactic Acid Level 22.1 mmol/L (0.4-2.0) Calcium Level 10.0 mg/dL (8.5-10.1) Troponin I Quantitative 0.018 ng/mL (0.000-0.055) Urine Opiates Screen Neg (NEG) Urine Methadone Screen Neg (NEG) Urine Barbiturates Neg (NEG) Urine Phencyclidine Screen Neg (NEG) Urine Amphetamine/Methamphetamine Neg (NEG) Urine Benzodiazepines Screen Neg (NEG) Urine Cocaine Screen Neg (NEG) Urine Cannabinoids Screen Pos (NEG) Urine Ethyl Alcohol Neg (NEG) Test 11/15/20 20:42 11/15/20 22:50 11/16/20 05:45 O2 Saturation 96 % (92-99) Arterial Blood pH 7.50 (7.35-7.45) Arterial Blood pCO2 at Patient Temp 25 mmHg (35-46) Arterial Blood pO2 at Patient Temp 81 mmHg (75-108) Arterial Blood HCO3 19 mmol/L (21-28) Arterial Blood Base Excess -3 mmol/L (-3-3) FiO2 21 Sodium Level 134 mmol/L (136-145) 134 mmol/L (136-145) Potassium Level 3.3 mmol/L (3.5-5.1) 3.2 mmol/L (3.5-5.1) Chloride Level 94 mmol/L (98-107) 95 mmol/L (98-107) Carbon Dioxide Level 24 mmol/L (21-32) 26 mmol/L (21-32) Anion Gap 16 (6-14) 13 (6-14) Blood Urea Nitrogen 31 mg/dL (7-20) 32 mg/dL (7-20) Creatinine 1.9 mg/dL (0.6-1.0) 1.6 mg/dL (0.6-1.0) Estimated GFR (Cockcroft-Gault) 35.6 43.4 Glucose Level 152 mg/dL (70-99) 87 mg/dL (70-99) Lactic Acid Level 8.1 mmol/L (0.4-2.0) 3.4 mmol/L (0.4-2.0) Calcium Level 9.7 mg/dL (8.5-10.1) 9.5 mg/dL (8.5-10.1) Troponin I Quantitative 0.025 ng/mL (0.000-0.055) White Blood Count 18.8 x10^3/uL (4.0-11.0) Red Blood Count 4.51 x10^6/uL (3.50-5.40) Hemoglobin 8.8 g/dL (12.0-15.5) Hematocrit 29.1 % (36.0-47.0) Mean Corpuscular Volume 65 fL (79-100) Mean Corpuscular Hemoglobin 20 pg (25-35) Mean Corpuscular Hemoglobin Concent 30 g/dL (31-37) Red Cell Distribution Width 25.4 % (11.5-14.5) Platelet Count 293 x10^3/uL (140-400) Neutrophils (%) (Auto) 85 % (31-73) Lymphocytes (%) (Auto) 9 % (24-48) Monocytes (%) (Auto) 6 % (0-9) Eosinophils (%) (Auto) 0 % (0-3) Basophils (%) (Auto) 0 % (0-3) Neutrophils # (Auto) 15.9 x10^3/uL (1.8-7.7) Lymphocytes # (Auto) 1.7 x10^3/uL (1.0-4.8) Monocytes # (Auto) 1.1 x10^3/uL (0.0-1.1) Eosinophils # (Auto) 0.0 x10^3/uL (0.0-0.7) Basophils # (Auto) 0.0 x10^3/uL (0.0-0.2) Prothrombin Time 30.7 SEC (11.7-14.0) Prothromb Time International Ratio 2.9 (0.8-1.1) BUN/Creatinine Ratio 20 (6-20) Phosphorus Level 3.2 mg/dL (2.6-4.7) Magnesium Level 2.2 mg/dL (1.8-2.4) Total Bilirubin 3.0 mg/dL (0.2-1.0) Aspartate Amino Transf (AST/SGOT) 78 U/L (15-37) Alanine Aminotransferase (ALT/SGPT) 54 U/L (14-59) Alkaline Phosphatase 129 U/L (46-116) Total Protein 7.7 g/dL (6.4-8.2) Albumin 3.1 g/dL (3.4-5.0) Albumin/Globulin Ratio 0.7 (1.0-1.7) Laboratory Tests Test 11/15/20 14:48 11/15/20 15:30 11/15/20 18:19 11/15/20 20:42 O2 Saturation 97 % (92-99) 96 % (92-99) Arterial Blood pH 7.16 (7.35-7.45) 7.50 (7.35-7.45) Arterial Blood pCO2 at Patient Temp < 15 mmHg (35-46) 25 mmHg (35-46) Arterial Blood pO2 at Patient Temp 119 mmHg (75-108) 81 mmHg (75-108) Arterial Blood HCO3 5 mmol/L (21-28) 19 mmol/L (21-28) Arterial Blood Base Excess -21 mmol/L (-3-3) -3 mmol/L (-3-3) FiO2 21 21 Sodium Level 139 mmol/L (136-145) Potassium Level 4.1 mmol/L (3.5-5.1) Chloride Level 95 mmol/L (98-107) Carbon Dioxide Level < 5 mmol/L (21-32) Anion Gap 39 (6-14) Blood Urea Nitrogen 31 mg/dL (7-20) Creatinine 2.0 mg/dL (0.6-1.0) Estimated GFR (Cockcroft-Gault) 33.6 Glucose Level 124 mg/dL (70-99) Lactic Acid Level 22.1 mmol/L (0.4-2.0) Calcium Level 10.0 mg/dL (8.5-10.1) Troponin I Quantitative 0.018 ng/mL (0.000-0.055) Urine Opiates Screen Neg (NEG) Urine Methadone Screen Neg (NEG) Urine Barbiturates Neg (NEG) Urine Phencyclidine Screen Neg (NEG) Urine Amphetamine/Methamphetamine Neg (NEG) Urine Benzodiazepines Screen Neg (NEG) Urine Cocaine Screen Neg (NEG) Urine Cannabinoids Screen Pos (NEG) Urine Ethyl Alcohol Neg (NEG) Test 11/15/20 22:50 11/16/20 05:45 Sodium Level 134 mmol/L (136-145) 134 mmol/L (136-145) Potassium Level 3.3 mmol/L (3.5-5.1) 3.2 mmol/L (3.5-5.1) Chloride Level 94 mmol/L (98-107) 95 mmol/L (98-107) Carbon Dioxide Level 24 mmol/L (21-32) 26 mmol/L (21-32) Anion Gap 16 (6-14) 13 (6-14) Blood Urea Nitrogen 31 mg/dL (7-20) 32 mg/dL (7-20) Creatinine 1.9 mg/dL (0.6-1.0) 1.6 mg/dL (0.6-1.0) Estimated GFR (Cockcroft-Gault) 35.6 43.4 Glucose Level 152 mg/dL (70-99) 87 mg/dL (70-99) Lactic Acid Level 8.1 mmol/L (0.4-2.0) 3.4 mmol/L (0.4-2.0) Calcium Level 9.7 mg/dL (8.5-10.1) 9.5 mg/dL (8.5-10.1) Troponin I Quantitative 0.025 ng/mL (0.000-0.055) White Blood Count 18.8 x10^3/uL (4.0-11.0) Red Blood Count 4.51 x10^6/uL (3.50-5.40) Hemoglobin 8.8 g/dL (12.0-15.5) Hematocrit 29.1 % (36.0-47.0) Mean Corpuscular Volume 65 fL (79-100) Mean Corpuscular Hemoglobin 20 pg (25-35) Mean Corpuscular Hemoglobin Concent 30 g/dL (31-37) Red Cell Distribution Width 25.4 % (11.5-14.5) Platelet Count 293 x10^3/uL (140-400) Neutrophils (%) (Auto) 85 % (31-73) Lymphocytes (%) (Auto) 9 % (24-48) Monocytes (%) (Auto) 6 % (0-9) Eosinophils (%) (Auto) 0 % (0-3) Basophils (%) (Auto) 0 % (0-3) Neutrophils # (Auto) 15.9 x10^3/uL (1.8-7.7) Lymphocytes # (Auto) 1.7 x10^3/uL (1.0-4.8) Monocytes # (Auto) 1.1 x10^3/uL (0.0-1.1) Eosinophils # (Auto) 0.0 x10^3/uL (0.0-0.7) Basophils # (Auto) 0.0 x10^3/uL (0.0-0.2) Prothrombin Time 30.7 SEC (11.7-14.0) Prothromb Time International Ratio 2.9 (0.8-1.1) BUN/Creatinine Ratio 20 (6-20) Phosphorus Level 3.2 mg/dL (2.6-4.7) Magnesium Level 2.2 mg/dL (1.8-2.4) Total Bilirubin 3.0 mg/dL (0.2-1.0) Aspartate Amino Transf (AST/SGOT) 78 U/L (15-37) Alanine Aminotransferase (ALT/SGPT) 54 U/L (14-59) Alkaline Phosphatase 129 U/L (46-116) Total Protein 7.7 g/dL (6.4-8.2) Albumin 3.1 g/dL (3.4-5.0) Albumin/Globulin Ratio 0.7 (1.0-1.7) Medications Active Scripts Medications Dose Route/Sig Max Daily Dose Days Date Category Amiodarone Hcl 200 Mg Tablet 200 Mg PO DAILY 30 09/29/20 Rx Eliquis (Apixaban) 5 Mg Tablet 5 Mg PO BID 30 09/29/20 Rx Doxycycline Hyclate 100 Mg Tablet 100 Mg PO BID 5 09/29/20 Rx Klor-Con M20 (Potassium Chloride) 20 Meq Tab.er.prt 20 Meq PO DAILYWBKFT 30 09/29/20 Rx Furosemide 40 Mg Tablet 40 Mg PO DAILY 30 09/29/20 Rx Omeprazole 20 Mg Capsule.dr 1 Cap PO DAILY 08/08/20 Reported Metoprolol Tartrate 25 Mg Tablet 1 Tab PO BID 12/20/14 Reported Feosol (Ferrous Sulfate) 325 Mg Tablet 325 Mg PO DAILY 12/20/14 Reported Aspirin 325 Mg Tablet 1 Tab PO DAILY 12/20/14 Reported Amitriptyline Hcl 50 Mg Tablet 1 Tab PO QHS 12/17/14 Reported Ultram (Tramadol Hcl) 50 Mg Tablet 1 Tab PO Q6HRS PRN 11/01/14 Reported Dulera 100 Mcg/5 Mcg Inhaler (Mometasone/Formoterol) 13 Gm Hfa.aer.ad 2 Puff IH BID 11/01/14 Reported Lidoderm (Lidocaine) 700 Mg Adh..patch 1 Patch TP DAILY PRN 11/01/14 Reported Neurontin (Gabapentin) 300 Mg Capsule 2 Cap PO BID 11/01/14 Reported Flonase (Fluticasone Propionate) 16 Gm [place].susp 2 [place] NS DAILY 11/01/14 Reported Cyclobenzaprine Hcl 10 Mg Tablet 1 Tab PO TID PRN 11/01/14 Reported Celexa (Citalopram Hydrobromide) 40 Mg Tablet 1 Tab PO DAILY 11/01/14 Reported Cetirizine Hcl 10 Mg Tablet 1 Tab PO DAILY 11/01/14 Reported Proair Hfa Inhaler (Albuterol Sulfate) 8.5 Gm Hfa.aer.ad 2 Puff IH PRN Q4-6HRS 11/01/14 Reported Impression . Full note dictated Abnormal x-ray compatible with CHF's possible pneumonia. Continue current support and care. DARIAN BASS MD Nov 16, 2020 14:15
--- NOTE | 2020-11-16 15:07 | NUR ---
SS following for discharge planning. SS reviewed pt chart and discussed with pt RN. Pt is from home and is currently on room air. Pt on IV Cefepime and IV Flagyl. Pt having labs drawn twice daily. Not stable. SS will continue to follow for discharge planning.
--- NOTE | 2020-11-16 15:14 | CONS ---
DATE OF CONSULTATION: 11/16/2020 ATTENDING PHYSICIAN: Dr. Mcadams. REASON FOR CONSULTATION: The patient is seen in pulmonary consultation at the request of Dr. Mcadams for abnormal x-ray, increasing shortness of breath. HISTORY OF PRESENT ILLNESS: The patient is a 39-year-old that was admitted with increasing shortness of breath, coughing up some mucus mixed in with blood. She quit tobacco a year ago, normally does not wear oxygen at home. She has underlying chronic obstructive pulmonary disease with an asthma component. She uses albuterol and Dulera at home. She presented and had a chest x-ray revealing right lower lobe infiltrate, effusion. Not much change in comparison to yesterday's x-ray. She also had a CT chest month ago revealing no evidence of pulmonary embolism. At that time, she had similar type of findings, bilateral infiltrates with effusion. She now comes in with a complaint of some abdominal pain. She also underwent CT abdomen and pelvis confirming moderate right and small left-sided effusion, hazy airspace opacities compatible with possibility of edema or infectious etiology. She also had diffuse wall thickening of the ascending colon, favoring colitis. The patient has been seen in consultation by Infectious Disease Service. She is currently on cefepime and Flagyl; currently being treated for severe sepsis, leukocytosis and lactic acidosis, possible pneumonia. PAST MEDICAL HISTORY: Otherwise remarkable for previous history of ASD, status post repair. She has chronic diastolic heart failure, CHF, AFib. She was seen in September for AFib, placed on amiodarone and Eliquis. She had underlying COPD, tobacco dependence, in remission and possible asthma component to her COPD. There is a history of anxiety, allergic rhinitis. PAST SURGICAL HISTORY: Status post previous percutaneous closure of the ASD. FAMILY HISTORY: Noncontributory. SOCIAL HISTORY: She quit tobacco a year ago. REVIEW OF SYSTEMS: As indicated above, otherwise other systems were reviewed and negative. CONSTITUTIONAL: No fever or chills. EYES: No change in visual acuity. HEENT: No nasal congestion or sore throat. PULMONARY: As indicated above. No COVID-19 exposures. CARDIOVASCULAR: As indicated above. GASTROINTESTINAL: As indicated above. GENITOURINARY: No dysuria or frequency. MUSCULOSKELETAL: No localized muscle aches or joint pains. SKIN: No new skin rashes. NEUROLOGIC: No headaches, diplopia or blurred vision. CURRENT MEDICATION: List was reviewed. ALLERGIES: IBUPROFEN. PHYSICAL EXAMINATION: VITAL SIGNS: Since admission, the patient has been afebrile. O2 saturation on room air 97-98%. HEENT: Eyes, the sclerae were nonicteric. NECK: Jugular venous distention was not elevated. No lymphadenopathy. CHEST: Full expansion. LUNGS: Crackles throughout both lung elise. CARDIOVASCULAR: Regular rate and rhythm with S1, S2, no S3. ABDOMEN: Soft. EXTREMITIES: No clubbing, cyanosis; some edema. NEUROLOGICAL: The patient was awake, alert, following commands. A detailed neuro exam was not performed. LABORATORY DATA: White count was elevated. She did have a bandemia. Drug screen was positive for cannabinoid. Electrolytes were noted. BUN was elevated, creatinine was elevated. Sodium was low. Lactic acidosis was elevated initially. White count was elevated. Arterial blood gas revealed a pH of 7.50, PaCO2 of 25, pO2 of 81. IMPRESSION: 1. Abnormal x-ray and CT compatible with chronic heart failure, bilateral effusions and some ill-defined infiltrates compatible with pulmonary edema. 2. Leukocytosis secondary to sepsis. Etiology of sepsis, unclear at this time, possible pneumonia. 3. Possible pneumonia, gram-negative, gram-positive. 4. Acute kidney injury. 5. Colitis seen on CT chest. 6. Atrial fibrillation/atrial flutter. 7. Acute on chronic heart failure. 8. Bilateral pleural effusions. 9. History of ASD, status post closure. 10. Chronic obstructive pulmonary disease with exacerbation. 11. Lkkbn-hl-[id number] cor pulmonale. 12. Metabolic acidosis, suspect secondary to sepsis and increased work of breathing. PLAN: 1. We will continue support with empiric antibiotics. Adjustments per Infectious Disease service. 2. Continue to diurese. 3. Follow Cardiology input. 4. If the patient does not improve and effusion enlarges, we will proceed with thoracentesis. 5. Nephrology has been consulted. 6. Continue DVT and GI prophylaxis. I do appreciate the privilege in sharing in the patient's care. DARIAN BASS MD DR: SANDRA/megan JOB#: [id number] / [id number]
[2020-11-16 15:46] LABS: CREATININE,RANDOM URINE 195.8 mg/dL (Not Establ.)
[2020-11-16] MEDS: CEFEPIME HCL IV Push 2 GM VIAL. IVP SCH (16:30)
[2020-11-16] MEDS ORDERED: CALCIUM CARBONATE 500 MG TAB.CHEW PO PRN ×2 (21:15→21:30)
[2020-11-16 22:52] LABS: CALCIUM 9.3 mg/dL (8.5-10.1); CREATININE 1.9 mg/dL (0.6-1.0); GFR 35.6; POTASSIUM 4.6 mmol/L (3.5-5.1)
[2020-11-17] VITALS (23 sets, daily range): BP systolic 30–146; BP diastolic 5–92
[2020-11-17] MEDS: THIAMINE INJ 300 MG in IV DEXTROSE 5% 50 ML IV SCH (06:17)
[2020-11-17 08:35] LABS: BASO % 0 % (0-3); EOS % 0 % (0-3); HEMATOCRIT 31.7 % (36.0-47.0); HEMOGLOBIN 9.1 g/dL (12.0-15.5); LYMPH # 2.2 x10^3/uL (1.0-4.8); LYMPH % 11 % (24-48); MEAN CORPUSCULAR HEMOGLOBIN 19 pg (25-35); MEAN CORPUSCULAR HGB CONC 29 g/dL (31-37); MEAN CORPUSCULAR VOLUME 68 fL (79-100); MONO # 1.3 x10^3/uL (0.0-1.1); MONO % 7 % (0-9); NEUT # 16.8 x10^3/uL (1.8-7.7); NEUT % 82 % (31-73); PLATELET COUNT 329 x10^3/uL (140-400); RED BLOOD COUNT 4.69 x10^6/uL (3.50-5.40); RED CELL DISTRIBUTION WIDTH 25.1 % (11.5-14.5); WHITE BLOOD COUNT 20.4 x10^3/uL (4.0-11.0)
[2020-11-17] MEDS: PANTOPRAZOLE 40 MG TABLET.DR. PO SCH (08:36)
[2020-11-17] MEDS: FLUTICASONE 50MCG/NASAL SPRAY 16GM BOTTLE. NS SCH (08:37)
[2020-11-17] MEDS: BUDESONIDE 0.5 MG/2 ML NEBU. NEB SCH ×2 (08:43→20:00)
[2020-11-17] MEDS: IPRATRPIUM/ALBUTEROL 0.5/2.5MG 3 ML NEBU. NEB SCH ×3 (08:43→20:00)
[2020-11-17 08:53] LABS: ALBUMIN 3.1 g/dL (3.4-5.0); ALBUMIN/GLOBULIN RATIO 0.7 (1.0-1.7); CALCIUM 9.8 mg/dL (8.5-10.1); CREATININE 2.4 mg/dL (0.6-1.0); GFR 27.2; POTASSIUM 5.7 mmol/L (3.5-5.1); TOTAL BILIRUBIN 4.1 mg/dL (0.2-1.0); TOTAL PROTEIN 7.6 g/dL (6.4-8.2)
--- NOTE | 2020-11-17 09:16 | PDOC ---
KELLY FLOOD IRON BENDER 11/17/20 0916: CARDIO Progress Notes Date and Time Date of Service 11/17/20 Time of Evaluation 1150 Subjective Subjective: No Chest Pain Vitals Vitals Vital Signs Date Time Temp Pulse Resp B/P (MAP) Pulse Ox O2 Delivery O2 Flow Rate FiO2 11/17/20 08:49 Room Air 11/17/20 08:04 93.2 106 21 102/63 (76) 96 93.2 11/16/20 07:00 Weight Weight [ ] Input and Output Intake and Output Intake and Output 11/17/20 07:00 Intake Total 1203 ml Output Total 575 ml Balance 628 ml Intake Oral 710 ml IV Total 493 ml Output Urine Total 575 ml Laboratory Labs Laboratory Tests Test 11/16/20 15:10 11/16/20 22:15 11/17/20 08:20 Urine Random Creatinine 195.8 mg/dL (Not Establ.) Urine Random Total Protein 307.4 mg/dL (Not Establ.) Urine Protein/Creatinine Ratio 1570 mg/g (0-200) Sodium Level 131 mmol/L (136-145) Potassium Level 4.6 mmol/L (3.5-5.1) Chloride Level 93 mmol/L (98-107) Carbon Dioxide Level 21 mmol/L (21-32) Anion Gap 17 (6-14) Blood Urea Nitrogen 43 mg/dL (7-20) Creatinine 1.9 mg/dL (0.6-1.0) Estimated GFR (Cockcroft-Gault) 35.6 Glucose Level 93 mg/dL (70-99) Calcium Level 9.3 mg/dL (8.5-10.1) White Blood Count 20.4 x10^3/uL (4.0-11.0) Red Blood Count 4.69 x10^6/uL (3.50-5.40) Hemoglobin 9.1 g/dL (12.0-15.5) Hematocrit 31.7 % (36.0-47.0) Mean Corpuscular Volume 68 fL (79-100) Mean Corpuscular Hemoglobin 19 pg (25-35) Mean Corpuscular Hemoglobin Concent 29 g/dL (31-37) Red Cell Distribution Width 25.1 % (11.5-14.5) Platelet Count 329 x10^3/uL (140-400) Neutrophils (%) (Auto) 82 % (31-73) Lymphocytes (%) (Auto) 11 % (24-48) Monocytes (%) (Auto) 7 % (0-9) Eosinophils (%) (Auto) 0 % (0-3) Basophils (%) (Auto) 0 % (0-3) Neutrophils # (Auto) 16.8 x10^3/uL (1.8-7.7) Lymphocytes # (Auto) 2.2 x10^3/uL (1.0-4.8) Monocytes # (Auto) 1.3 x10^3/uL (0.0-1.1) Eosinophils # (Auto) 0.0 x10^3/uL (0.0-0.7) Basophils # (Auto) 0.0 x10^3/uL (0.0-0.2) Microbiology Micro Microbiology 11/15/20 Urine Culture - Final, Complete 11/15/20 Blood Culture - Preliminary, Resulted NO GROWTH AFTER 1 DAY Physical Exam HEENT: Neck Supple W Full Motion Chest: Symmetric LUNGS: Other (diminished ) Heart: irregularly irregular (AF-flutter rate mildly elevated ) Abdomen: Soft N/T Extremities: Other (1+ bailteral LE edema ) Neurology: alert, follow commands, other (lethargic ) Assessment Assessment 1. Acute on chronic diastolic CHF; Echo 08/26 with preserved LV systolic function. s/p IV Lasix in ED 2. AFIB/flutter; rate mildly elevated 3. Acute respiratory failure with a/c CHF, possible PNA, and secondary cor pulmonale 6. Valvular insufficiency: notable for moderate MR and mod to severe TR 7. H/o ASD s/p surgical closure: 2014. Stable per recent SAMMY 8. KENNETH, hyperkalemia; Cr ^ 2.4 9. Fe deficiency anemia: no overt bleed. Hgb at 9.1 10. Transaminitis, coagulopathy; INR initially 6, now 4.4. Eliquis discontinued 11. Hypertension; controlled 12. Hypoglycemia, profound improved 13. Leukocytosis, lactic acidosis, probable sepsis. requiring pressor support. Now hypothermic on Caridad Hugger. Lactic back up to 16. 14. Abdominal pain; CT with possible colitis 15. Marijana use Recommendations Continue pressor support Hold metoprolol with hypotension Use IV Dig PRN for rate control. Use sparingly with KENNETH No ASA, OAC with anemia, coagulopathy Hold Amiodarone Echocardiogram today Follow cultures Antibiotics as per ID Consider RHC when more stable Supportive care Justicifation of Admission Dx: Justifications for Admission: Justification of Admission Dx: Yes CHF: Cardiac Arrhythmias SAAD YAN MD 11/17/20 1716: CARDIO Progress Notes Assessment Assessment Patient seen and examined. Agree with ACTIVITIES DIRECTOR's assessment and plan. Acute respiratory failure probably secondary to combination of pneumonia and acute on chronic diastolic HF/cor pulmonale Patient had to be intubated earlier today for worsening hypoxia, pulmonary following Severe sepsis, needing pressor support, antibiotics per ID team AF rate slightly elevated probably secondary to respiratory distress. Eliquis and amiodarone held secondary to coagulopathy and transaminitis BUN/creatinine elevated but patient probably not a good candidate at this time for CRRT secondary to hypotension. Nephrology following. 2D echo today to rule out intracardiac source of sepsis and evaluate LVEF/valvulopathy Guarded prognosis EKLLY FLOOD APRN Nov 17, 2020 09:16 SAAD YAN MD Nov 17, 2020 17:16
--- NOTE | 2020-11-17 09:22 | PDOC ---
DATE OF SERVICE DATE: 11/17/20 TIME: 09:19 SUBJECTIVE ROS confused today, white count is elevated. Hypothermic OBJECTIVE Vital Signs Vital Signs Date Time Temp Pulse Resp B/P (MAP) Pulse Ox O2 Delivery O2 Flow Rate FiO2 11/17/20 09:00 93.4 106 102/68 (79) 96 Room Air 93.4 11/17/20 08:04 21 11/16/20 07:00 I & 0 Intake and Output 11/17/20 07:00 Intake Total 1203 ml Output Total 575 ml Balance 628 ml Intake Oral 710 ml IV Total 493 ml Output Urine Total 575 ml PHYSICAL EXAM Physical Exam General: No acute distress HEENT: Mucous membr. moist/pink Neck supple Lungs: diminished bases Heart: AFlutter Abdomen: Soft, NT Extremities: Trace Bilat LE edema + Neuro: grossly normal Psych/Mental Status: Mental status NL, Mood NL No Sky, No CVA or SP tenderness Skin No rash DIAGNOSIS/ASSESSMENT Assessment & Plan KENNETH - Non Oliguric , ATN Recd IV Lasix yesterday x1 CT scan- unremarkable Kidneys and bladder , No Micr hematuria, Overt Proteinuria +, No hx of NSAID's use per patient , No Hx of CKD (KENNETH last hosp - resolved ) Supportive care, Strict I/O, monitor HyperKalemia- On PO KCL , held now Sepsis- elevated Lactic acid Metabolic acidosis POA- 2/2 Lactic acidosis, . UDS positive for cannabinoids ,Bicarb decreased again this am, Lactic acid elevated . IV Bicarb gtt cautiously, monitor pulm status. 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 On IV Lasix, cardiology managing Acute on chronic CHF exacerbation last echo in July 2020 showed EF of 60-65% and severely dilated right ventricle Valvular insufficiency: notable for moderate MR and mod to severe TR Hx of of open ASD closure: 2014. Stable per recent SAMMY Severe symptomatic hypoglycemia POA History of atrial fibrillation/atrial flutter Secondary cor pulmonale due to pulmonary hypertension Anemia of chronic disease- Fe def , Tsat 4, Defer to primary COMMENT/RELEVANT DATA Meds Current Medications Medications (Trade) Dose Ordered Sig/Kailey Start Time Stop Time Status Last Admin Dose Admin Acetaminophen (Tylenol) 650 mg PRN Q4HRS PRN 11/15/20 16:15 Albuterol/ Ipratropium (Duoneb) 3 ml RTQID 11/17/20 09:00 11/17/20 08:43 3 ML Amiodarone HCl (Cordarone) 200 mg DAILY 11/16/20 09:00 11/15/20 16:38 DC Aspirin (Tatianna Aspirin) 325 mg DAILY 11/16/20 09:00 11/15/20 16:38 DC Budesonide (Pulmicort) 0.5 mg RTBID 11/17/20 09:00 11/17/20 08:43 0.5 MG Calcium Carbonate/ Glycine (Tums) 1,000 mg PRN Q4HRS PRN 11/16/20 21:30 11/16/20 21:37 1,000 MG Cefepime HCl (Maxipime) 2 gm Q24H 11/15/20 17:00 11/16/20 16:30 2 GM Citalopram Hydrobromide (CeleXA) 40 mg DAILY 11/16/20 09:00 11/16/20 09:28 40 MG Dextrose (Dextrose 50%-Water Syringe) 12.5 gm PRN Q15MIN PRN 11/15/20 16:15 Dextrose/Sodium Chloride 1,000 ml @ 50 mls/hr Q20H 11/15/20 16:00 11/16/20 11:01 50 MLS/HR Docusate Sodium (Colace) 100 mg PRN DAILY PRN 11/15/20 16:15 Fentanyl Citrate (Fentanyl 2ml Vial) 50 mcg PRN Q1HR PRN 11/15/20 13:00 11/16/20 12:59 DC Fluticasone Propionate (Flonase) 2 spray DAILY 11/16/20 09:00 11/17/20 08:37 2 SPRAY Furosemide (Lasix) 40 mg 1X ONCE 11/16/20 14:00 11/16/20 14:01 DC 11/16/20 14:08 40 MG Gabapentin (Neurontin) 600 mg BID 11/15/20 21:00 11/16/20 21:37 600 MG Heparin Sodium (Porcine) (Heparin Sodium) 5,000 unit Q12HR 11/15/20 21:00 11/15/20 16:17 DC Metoprolol Tartrate (Lopressor) 50 mg BID 11/16/20 09:15 11/16/20 21:54 50 MG Metronidazole 100 ml @ 100 mls/hr Q12HR 11/15/20 21:00 11/17/20 08:41 100 MLS/HR Ondansetron HCl (Zofran) 4 mg PRN Q6HRS PRN 11/15/20 16:15 Pantoprazole Sodium (Protonix) 40 mg DAILYAC 11/16/20 07:30 11/17/20 08:36 40 MG Piperacillin Sod/ Tazobactam Sod 3.375 gm/Sodium Chloride 50 ml @ 100 mls/hr 1X ONCE 11/15/20 13:00 11/15/20 13:29 DC 11/15/20 13:05 100 MLS/HR Potassium Chloride (Klor-Con) 60 meq 1X ONCE 11/16/20 14:00 11/16/20 14:01 DC 11/16/20 14:06 60 MEQ Sennosides (Senna) 17.2 mg PRN BID PRN 11/15/20 16:15 Sodium Bicarbonate (Sodium Bicarb Adult 8.4% Syr) 100 meq 1X ONCE 11/15/20 15:30 11/15/20 15:31 DC 11/15/20 16:43 100 MEQ Thiamine Mononitrate (Vitamin B-1) 300 mg DAILY 11/15/20 16:30 11/15/20 16:22 DC Thiamine HCl 300 mg/Dextrose 53 ml @ 102 mls/hr Q8HRS 11/15/20 22:00 11/17/20 06:17 102 MLS/HR Vancomycin HCl (Vanco Per Pharmacy) 1 each PRN DAILY PRN 11/15/20 16:15 11/16/20 11:05 DC Vancomycin HCl 2 gm/Sodium Chloride 500 ml @ 250 mls/hr 1X ONCE 11/15/20 13:00 11/15/20 14:59 DC 11/15/20 13:37 250 MLS/HR Lab Laboratory Tests Test 11/16/20 15:10 11/16/20 22:15 11/17/20 08:20 Urine Random Creatinine 195.8 mg/dL (Not Establ.) Urine Random Total Protein 307.4 mg/dL (Not Establ.) Urine Protein/Creatinine Ratio 1570 mg/g (0-200) Sodium Level 131 mmol/L (136-145) 129 mmol/L (136-145) Potassium Level 4.6 mmol/L (3.5-5.1) 5.7 mmol/L (3.5-5.1) Chloride Level 93 mmol/L (98-107) 91 mmol/L (98-107) Carbon Dioxide Level 21 mmol/L (21-32) 12 mmol/L (21-32) Anion Gap 17 (6-14) 26 (6-14) Blood Urea Nitrogen 43 mg/dL (7-20) 50 mg/dL (7-20) Creatinine 1.9 mg/dL (0.6-1.0) 2.4 mg/dL (0.6-1.0) Estimated GFR (Cockcroft-Gault) 35.6 27.2 Glucose Level 93 mg/dL (70-99) 56 mg/dL (70-99) Calcium Level 9.3 mg/dL (8.5-10.1) 9.8 mg/dL (8.5-10.1) White Blood Count 20.4 x10^3/uL (4.0-11.0) Red Blood Count 4.69 x10^6/uL (3.50-5.40) Hemoglobin 9.1 g/dL (12.0-15.5) Hematocrit 31.7 % (36.0-47.0) Mean Corpuscular Volume 68 fL (79-100) Mean Corpuscular Hemoglobin 19 pg (25-35) Mean Corpuscular Hemoglobin Concent 29 g/dL (31-37) Red Cell Distribution Width 25.1 % (11.5-14.5) Platelet Count 329 x10^3/uL (140-400) Neutrophils (%) (Auto) 82 % (31-73) Lymphocytes (%) (Auto) 11 % (24-48) Monocytes (%) (Auto) 7 % (0-9) Eosinophils (%) (Auto) 0 % (0-3) Basophils (%) (Auto) 0 % (0-3) Neutrophils # (Auto) 16.8 x10^3/uL (1.8-7.7) Lymphocytes # (Auto) 2.2 x10^3/uL (1.0-4.8) Monocytes # (Auto) 1.3 x10^3/uL (0.0-1.1) Eosinophils # (Auto) 0.0 x10^3/uL (0.0-0.7) Basophils # (Auto) 0.0 x10^3/uL (0.0-0.2) BUN/Creatinine Ratio 21 (6-20) Total Bilirubin 4.1 mg/dL (0.2-1.0) Aspartate Amino Transf (AST/SGOT) 103 U/L (15-37) Alanine Aminotransferase (ALT/SGPT) 65 U/L (14-59) Alkaline Phosphatase 144 U/L (46-116) Total Protein 7.6 g/dL (6.4-8.2) Albumin 3.1 g/dL (3.4-5.0) Albumin/Globulin Ratio 0.7 (1.0-1.7) Results All relevant outside records, renal labs, imaging studies, telemetry/EKG's were reviewed. Justicifation of Admission Dx: Justifications for Admission: Justification of Admission Dx: Yes CHF: Cardiac Arrhythmias FRANCO SETHI MD Nov 17, 2020 09:22
[2020-11-17] MEDS: GABAPENTIN 300 MG CAPSULE. PO SCH ×2 (09:23→21:00)
[2020-11-17] MEDS: CITALOPRAM 20 MG TABLET. PO SCH (09:23)
[2020-11-17] MEDS: METOPROLOL TART IMMED RELEASE 25 MG TABLET. PO SCH (09:24)
[2020-11-17] MEDS: IV DEXTROSE 5 %-0.45 % NACL 1,000 ML IV SCH (09:28)
--- NOTE | 2020-11-17 10:35 | PDOC ---
PULMONARY PROGRESS NOTES DATE: 11/17/20 TIME: 10:35 Subjective Patient somewhat confused today, white count is elevated. Bicarb is decreased, Hypothermic Receiving IV fluids sodium bicarb per nephrology Vitals Vital Signs Date Time Temp Pulse Resp B/P (MAP) Pulse Ox O2 Delivery O2 Flow Rate FiO2 11/17/20 09:24 106 102/68 11/17/20 09:00 93.4 96 Room Air 93.4 11/17/20 08:04 21 11/16/20 07:00 ROS: No Nausea, No Chest Pain, No Increase Cough General: Confused Lungs: Clear Cardiovascular: S1, S2 Abdomen: Soft Neuro Exam: Alert Extremities: No Edema Skin: Warm Labs Laboratory Tests Test 11/15/20 11:09 11/15/20 11:40 11/15/20 12:25 11/15/20 13:00 White Blood Count 15.4 x10^3/uL (4.0-11.0) Red Blood Count 4.73 x10^6/uL (3.50-5.40) Hemoglobin 9.3 g/dL (12.0-15.5) Hematocrit 32.9 % (36.0-47.0) Mean Corpuscular Volume 70 fL (79-100) Mean Corpuscular Hemoglobin 20 pg (25-35) Mean Corpuscular Hemoglobin Concent 28 g/dL (31-37) Red Cell Distribution Width 25.6 % (11.5-14.5) Platelet Count 367 x10^3/uL (140-400) Neutrophils (%) (Auto) 82 % (31-73) Lymphocytes (%) (Auto) 12 % (24-48) Monocytes (%) (Auto) 6 % (0-9) Eosinophils (%) (Auto) 0 % (0-3) Basophils (%) (Auto) 0 % (0-3) Neutrophils # (Auto) 12.6 x10^3/uL (1.8-7.7) Lymphocytes # (Auto) 1.8 x10^3/uL (1.0-4.8) Monocytes # (Auto) 0.9 x10^3/uL (0.0-1.1) Eosinophils # (Auto) 0.0 x10^3/uL (0.0-0.7) Basophils # (Auto) 0.0 x10^3/uL (0.0-0.2) Segmented Neutrophils % 82 % (35-66) Lymphocytes % 11 % (24-48) Monocytes % 7 % (0-10) Nucleated Red Blood Cells 2 Platelet Estimate Adequate (ADEQUATE) Large Platelets Mod Giant Platelets Few Hypochromasia Marked Poikilocytosis Present Anisocytosis Marked Microcytosis Marked Ovalocytes Present Acanthocytes Present RBC Morphology Bizarre Forms Occ Prothrombin Time 54.6 SEC (11.7-14.0) Prothromb Time International Ratio 6.0 (0.8-1.1) Sodium Level 137 mmol/L (136-145) Potassium Level 4.3 mmol/L (3.5-5.1) Chloride Level 94 mmol/L (98-107) Carbon Dioxide Level 6 mmol/L (21-32) Anion Gap 37 (6-14) Blood Urea Nitrogen 29 mg/dL (7-20) Creatinine 2.0 mg/dL (0.6-1.0) Estimated GFR (Cockcroft-Gault) 33.6 BUN/Creatinine Ratio 15 (6-20) Glucose Level 31 mg/dL (70-99) Lactic Acid Level 22.0 mmol/L (0.4-2.0) Calcium Level 10.1 mg/dL (8.5-10.1) Phosphorus Level 8.0 mg/dL (2.6-4.7) Magnesium Level 2.4 mg/dL (1.8-2.4) Total Bilirubin 3.2 mg/dL (0.2-1.0) Aspartate Amino Transf (AST/SGOT) 55 U/L (15-37) Alanine Aminotransferase (ALT/SGPT) 52 U/L (14-59) Alkaline Phosphatase 156 U/L (46-116) Troponin I Quantitative 0.034 ng/mL (0.000-0.055) XD-Gcp-Q-Type Natriuretic Peptide 94274 pg/mL (0-124) Total Protein 8.0 g/dL (6.4-8.2) Albumin 3.6 g/dL (3.4-5.0) Albumin/Globulin Ratio 0.8 (1.0-1.7) Procalcitonin 2.08 ng/mL (0.00-0.10) Urine Collection Type Void Urine Color Denita Urine Clarity Cloudy Urine pH 5.0 (<5.0-8.0) Urine Specific [place] 1.015 (1.000-1.030) Urine Protein >=300 mg/dL (NEG-TRACE) Urine Glucose (UA) Negative mg/dL (NEG) Urine Ketones (Stick) Negative mg/dL (NEG) Urine Blood Negative (NEG) Urine Nitrite Negative (NEG) Urine Bilirubin Negative (NEG) Urine Urobilinogen Dipstick 1.0 mg/dL (0.2 mg/dL) Urine Leukocyte Esterase Negative (NEG) Urine RBC Occ /HPF (0-2) Urine WBC 5-10 /HPF (0-4) Urine Squamous Epithelial Cells Many /LPF Urine Amorphous Sediment Present /HPF Urine Bacteria Few /HPF (0-FEW) Urine Hyaline Casts Many /HPF Glucose (Fingerstick) 15 mg/dL (70-99) 72 mg/dL (70-99) Test 11/15/20 14:11 11/15/20 14:48 11/15/20 15:30 11/15/20 18:19 Glucose (Fingerstick) 98 mg/dL (70-99) O2 Saturation 97 % (92-99) Arterial Blood pH 7.16 (7.35-7.45) Arterial Blood pCO2 at Patient Temp < 15 mmHg (35-46) Arterial Blood pO2 at Patient Temp 119 mmHg (75-108) Arterial Blood HCO3 5 mmol/L (21-28) Arterial Blood Base Excess -21 mmol/L (-3-3) FiO2 21 Sodium Level 139 mmol/L (136-145) Potassium Level 4.1 mmol/L (3.5-5.1) Chloride Level 95 mmol/L (98-107) Carbon Dioxide Level < 5 mmol/L (21-32) Anion Gap 39 (6-14) Blood Urea Nitrogen 31 mg/dL (7-20) Creatinine 2.0 mg/dL (0.6-1.0) Estimated GFR (Cockcroft-Gault) 33.6 Glucose Level 124 mg/dL (70-99) Lactic Acid Level 22.1 mmol/L (0.4-2.0) Calcium Level 10.0 mg/dL (8.5-10.1) Troponin I Quantitative 0.018 ng/mL (0.000-0.055) Urine Opiates Screen Neg (NEG) Urine Methadone Screen Neg (NEG) Urine Barbiturates Neg (NEG) Urine Phencyclidine Screen Neg (NEG) Urine Amphetamine/Methamphetamine Neg (NEG) Urine Benzodiazepines Screen Neg (NEG) Urine Cocaine Screen Neg (NEG) Urine Cannabinoids Screen Pos (NEG) Urine Ethyl Alcohol Neg (NEG) Test 11/15/20 20:42 11/15/20 22:50 11/16/20 05:45 11/16/20 15:10 O2 Saturation 96 % (92-99) Arterial Blood pH 7.50 (7.35-7.45) Arterial Blood pCO2 at Patient Temp 25 mmHg (35-46) Arterial Blood pO2 at Patient Temp 81 mmHg (75-108) Arterial Blood HCO3 19 mmol/L (21-28) Arterial Blood Base Excess -3 mmol/L (-3-3) FiO2 21 Sodium Level 134 mmol/L (136-145) 134 mmol/L (136-145) Potassium Level 3.3 mmol/L (3.5-5.1) 3.2 mmol/L (3.5-5.1) Chloride Level 94 mmol/L (98-107) 95 mmol/L (98-107) Carbon Dioxide Level 24 mmol/L (21-32) 26 mmol/L (21-32) Anion Gap 16 (6-14) 13 (6-14) Blood Urea Nitrogen 31 mg/dL (7-20) 32 mg/dL (7-20) Creatinine 1.9 mg/dL (0.6-1.0) 1.6 mg/dL (0.6-1.0) Estimated GFR (Cockcroft-Gault) 35.6 43.4 Glucose Level 152 mg/dL (70-99) 87 mg/dL (70-99) Lactic Acid Level 8.1 mmol/L (0.4-2.0) 3.4 mmol/L (0.4-2.0) Calcium Level 9.7 mg/dL (8.5-10.1) 9.5 mg/dL (8.5-10.1) Troponin I Quantitative 0.025 ng/mL (0.000-0.055) White Blood Count 18.8 x10^3/uL (4.0-11.0) Red Blood Count 4.51 x10^6/uL (3.50-5.40) Hemoglobin 8.8 g/dL (12.0-15.5) Hematocrit 29.1 % (36.0-47.0) Mean Corpuscular Volume 65 fL (79-100) Mean Corpuscular Hemoglobin 20 pg (25-35) Mean Corpuscular Hemoglobin Concent 30 g/dL (31-37) Red Cell Distribution Width 25.4 % (11.5-14.5) Platelet Count 293 x10^3/uL (140-400) Neutrophils (%) (Auto) 85 % (31-73) Lymphocytes (%) (Auto) 9 % (24-48) Monocytes (%) (Auto) 6 % (0-9) Eosinophils (%) (Auto) 0 % (0-3) Basophils (%) (Auto) 0 % (0-3) Neutrophils # (Auto) 15.9 x10^3/uL (1.8-7.7) Lymphocytes # (Auto) 1.7 x10^3/uL (1.0-4.8) Monocytes # (Auto) 1.1 x10^3/uL (0.0-1.1) Eosinophils # (Auto) 0.0 x10^3/uL (0.0-0.7) Basophils # (Auto) 0.0 x10^3/uL (0.0-0.2) Prothrombin Time 30.7 SEC (11.7-14.0) Prothromb Time International Ratio 2.9 (0.8-1.1) BUN/Creatinine Ratio 20 (6-20) Phosphorus Level 3.2 mg/dL (2.6-4.7) Magnesium Level 2.2 mg/dL (1.8-2.4) Total Bilirubin 3.0 mg/dL (0.2-1.0) Aspartate Amino Transf (AST/SGOT) 78 U/L (15-37) Alanine Aminotransferase (ALT/SGPT) 54 U/L (14-59) Alkaline Phosphatase 129 U/L (46-116) Total Protein 7.7 g/dL (6.4-8.2) Albumin 3.1 g/dL (3.4-5.0) Albumin/Globulin Ratio 0.7 (1.0-1.7) Urine Random Creatinine 195.8 mg/dL (Not Establ.) Urine Random Total Protein 307.4 mg/dL (Not Establ.) Urine Protein/Creatinine Ratio 1570 mg/g (0-200) Test 11/16/20 22:15 11/17/20 08:20 Sodium Level 131 mmol/L (136-145) 129 mmol/L (136-145) Potassium Level 4.6 mmol/L (3.5-5.1) 5.7 mmol/L (3.5-5.1) Chloride Level 93 mmol/L (98-107) 91 mmol/L (98-107) Carbon Dioxide Level 21 mmol/L (21-32) 12 mmol/L (21-32) Anion Gap 17 (6-14) 26 (6-14) Blood Urea Nitrogen 43 mg/dL (7-20) 50 mg/dL (7-20) Creatinine 1.9 mg/dL (0.6-1.0) 2.4 mg/dL (0.6-1.0) Estimated GFR (Cockcroft-Gault) 35.6 27.2 Glucose Level 93 mg/dL (70-99) 56 mg/dL (70-99) Calcium Level 9.3 mg/dL (8.5-10.1) 9.8 mg/dL (8.5-10.1) White Blood Count 20.4 x10^3/uL (4.0-11.0) Red Blood Count 4.69 x10^6/uL (3.50-5.40) Hemoglobin 9.1 g/dL (12.0-15.5) Hematocrit 31.7 % (36.0-47.0) Mean Corpuscular Volume 68 fL (79-100) Mean Corpuscular Hemoglobin 19 pg (25-35) Mean Corpuscular Hemoglobin Concent 29 g/dL (31-37) Red Cell Distribution Width 25.1 % (11.5-14.5) Platelet Count 329 x10^3/uL (140-400) Neutrophils (%) (Auto) 82 % (31-73) Lymphocytes (%) (Auto) 11 % (24-48) Monocytes (%) (Auto) 7 % (0-9) Eosinophils (%) (Auto) 0 % (0-3) Basophils (%) (Auto) 0 % (0-3) Neutrophils # (Auto) 16.8 x10^3/uL (1.8-7.7) Lymphocytes # (Auto) 2.2 x10^3/uL (1.0-4.8) Monocytes # (Auto) 1.3 x10^3/uL (0.0-1.1) Eosinophils # (Auto) 0.0 x10^3/uL (0.0-0.7) Basophils # (Auto) 0.0 x10^3/uL (0.0-0.2) BUN/Creatinine Ratio 21 (6-20) Total Bilirubin 4.1 mg/dL (0.2-1.0) Aspartate Amino Transf (AST/SGOT) 103 U/L (15-37) Alanine Aminotransferase (ALT/SGPT) 65 U/L (14-59) Alkaline Phosphatase 144 U/L (46-116) Total Protein 7.6 g/dL (6.4-8.2) Albumin 3.1 g/dL (3.4-5.0) Albumin/Globulin Ratio 0.7 (1.0-1.7) Laboratory Tests Test 11/16/20 15:10 11/16/20 22:15 11/17/20 08:20 Urine Random Creatinine 195.8 mg/dL (Not Establ.) Urine Random Total Protein 307.4 mg/dL (Not Establ.) Urine Protein/Creatinine Ratio 1570 mg/g (0-200) Sodium Level 131 mmol/L (136-145) 129 mmol/L (136-145) Potassium Level 4.6 mmol/L (3.5-5.1) 5.7 mmol/L (3.5-5.1) Chloride Level 93 mmol/L (98-107) 91 mmol/L (98-107) Carbon Dioxide Level 21 mmol/L (21-32) 12 mmol/L (21-32) Anion Gap 17 (6-14) 26 (6-14) Blood Urea Nitrogen 43 mg/dL (7-20) 50 mg/dL (7-20) Creatinine 1.9 mg/dL (0.6-1.0) 2.4 mg/dL (0.6-1.0) Estimated GFR (Cockcroft-Gault) 35.6 27.2 Glucose Level 93 mg/dL (70-99) 56 mg/dL (70-99) Calcium Level 9.3 mg/dL (8.5-10.1) 9.8 mg/dL (8.5-10.1) White Blood Count 20.4 x10^3/uL (4.0-11.0) Red Blood Count 4.69 x10^6/uL (3.50-5.40) Hemoglobin 9.1 g/dL (12.0-15.5) Hematocrit 31.7 % (36.0-47.0) Mean Corpuscular Volume 68 fL (79-100) Mean Corpuscular Hemoglobin 19 pg (25-35) Mean Corpuscular Hemoglobin Concent 29 g/dL (31-37) Red Cell Distribution Width 25.1 % (11.5-14.5) Platelet Count 329 x10^3/uL (140-400) Neutrophils (%) (Auto) 82 % (31-73) Lymphocytes (%) (Auto) 11 % (24-48) Monocytes (%) (Auto) 7 % (0-9) Eosinophils (%) (Auto) 0 % (0-3) Basophils (%) (Auto) 0 % (0-3) Neutrophils # (Auto) 16.8 x10^3/uL (1.8-7.7) Lymphocytes # (Auto) 2.2 x10^3/uL (1.0-4.8) Monocytes # (Auto) 1.3 x10^3/uL (0.0-1.1) Eosinophils # (Auto) 0.0 x10^3/uL (0.0-0.7) Basophils # (Auto) 0.0 x10^3/uL (0.0-0.2) BUN/Creatinine Ratio 21 (6-20) Total Bilirubin 4.1 mg/dL (0.2-1.0) Aspartate Amino Transf (AST/SGOT) 103 U/L (15-37) Alanine Aminotransferase (ALT/SGPT) 65 U/L (14-59) Alkaline Phosphatase 144 U/L (46-116) Total Protein 7.6 g/dL (6.4-8.2) Albumin 3.1 g/dL (3.4-5.0) Albumin/Globulin Ratio 0.7 (1.0-1.7) Medications Active Scripts Medications Dose Route/Sig Max Daily Dose Days Date Category Amiodarone Hcl 200 Mg Tablet 200 Mg PO DAILY 09/29/20 Rx Eliquis (Apixaban) 5 Mg Tablet 5 Mg PO BID 30 09/29/20 Rx Doxycycline Hyclate 100 Mg Tablet 100 Mg PO BID 5 09/29/20 Rx Klor-Con M20 (Potassium Chloride) 20 Meq Tab.er.prt 20 Meq PO DAILYWBKFT 30 09/29/20 Rx Furosemide 40 Mg Tablet 40 Mg PO DAILY 30 09/29/20 Rx Omeprazole 20 Mg Capsule.dr 1 Cap PO DAILY 08/08/20 Reported Metoprolol Tartrate 25 Mg Tablet 1 Tab PO BID 12/20/14 Reported Feosol (Ferrous Sulfate) 325 Mg Tablet 325 Mg PO DAILY 12/20/14 Reported Aspirin 325 Mg Tablet 1 Tab PO DAILY 12/20/14 Reported Amitriptyline Hcl 50 Mg Tablet 1 Tab PO QHS 12/17/14 Reported Ultram (Tramadol Hcl) 50 Mg Tablet 1 Tab PO Q6HRS PRN 11/01/14 Reported Dulera 100 Mcg/5 Mcg Inhaler (Mometasone/Formoterol) 13 Gm Hfa.aer.ad 2 Puff IH BID 11/01/14 Reported Lidoderm (Lidocaine) 700 Mg Adh..patch 1 Patch TP DAILY PRN 11/01/14 Reported Neurontin (Gabapentin) 300 Mg Capsule 2 Cap PO BID 11/01/14 Reported Flonase (Fluticasone Propionate) 16 Gm Randall.susp 2 Randall NS DAILY 11/01/14 Reported Cyclobenzaprine Hcl 10 Mg Tablet 1 Tab PO TID PRN 11/01/14 Reported Celexa (Citalopram Hydrobromide) 40 Mg Tablet 1 Tab PO DAILY 11/01/14 Reported Cetirizine Hcl 10 Mg Tablet 1 Tab PO DAILY 11/01/14 Reported Proair Hfa Inhaler (Albuterol Sulfate) 8.5 Gm Hfa.aer.ad 2 Puff IH PRN Q4-6HRS 11/01/14 Reported Impression . IMPRESSION: 1. Abnormal x-ray and CT compatible with chronic heart failure, bilateral effusions and some ill-defined infiltrates compatible with pulmonary edema. 2. Leukocytosis secondary to sepsis. Etiology of sepsis, unclear at this time, possible pneumonia. 3. Possible pneumonia, gram-negative, gram-positive. 4. Acute kidney injury. 5. Colitis seen on CT chest. 6. Atrial fibrillation/atrial flutter. 7. Acute on chronic heart failure. 8. Bilateral pleural effusions. 9. History of ASD, status post closure. 10. Chronic obstructive pulmonary disease with exacerbation. 11. [id number] cor pulmonale. 12. Metabolic acidosis, suspect secondary to sepsis and increased work of breathing. Plan . We will continue support with IV fluids next IV sodium bicarb antibiotics next hold off on diuresis follow nephrology input next DVT GI prophylaxis Repeat lactic acid level Total cumulative critical care time from 11 AM to 11:34 AM DARIAN BASS MD Nov 17, 2020 10:35
--- NOTE | 2020-11-17 10:44 | PDOC2 ---
SAM MAN SPECIAL EQUIPMENT TECHNICIAN 11/17/20 1044: CONSULT Date of Consult Date of Consult DATE: 11/17/20 TIME: 10:17 Reason for Consult Reason for Consult: possible ischemic gut Referring Physician Referring Physician: Dr Ferguson Identification/Chief Complaint Chief Complaint SOA Source Source: Caregiver, Chart review, Patient History of Present Illness Reason for Visit: Admitted with worsening SOA, LE edema, abdominal distention. Significant abnormalities in lab findings, admission lactic was 22, inr 6, ct findings of diffuse wall thickening of ascending colon. Concerning for colitis. She does have significant medical hx including asthma, CHF, takes eliquis daily, no liver disease hx Past Medical History Cardiovascular: HTN, Hyperlipidemia, Valve insufficiency, Pulmonary hypertension Pulmonary: Asthma, Bronchitis CENTRAL NERVOUS SYSTEM: Other GI: GERD Heme/Onc: Anemia NOS Psych: Anxiety Musculoskeletal: low back pain Past Surgical History Past Surgical History: Other (no abdominal surgeries ) Family History Family History: Other (noncontributory ) Social History Quit ALCOHOL: none Drugs: None Current Problem List Problem List Problems Medical Problems: (1) KENNETH (acute kidney injury) Status: Acute (2) Atrial fibrillation with RVR Status: Acute (3) CHF (congestive heart failure) Status: Acute (4) Hypoglycemia Status: Acute (5) Pneumonia Status: Acute Current Medications Current Medications Current Medications Furosemide (Lasix) 40 mg 1X ONCE IVP Last administered on 11/15/20at 11:16; Start 11/15/20 at 10:15; Stop 11/15/20 at 10:22; Status DC Vancomycin HCl 2 gm/Sodium Chloride 500 ml @ 250 mls/hr 1X ONCE IV Last administered on 11/15/20at 13:37; Start 11/15/20 at 13:00; Stop 11/15/20 at 14:59; Status DC Piperacillin Sod/ Tazobactam Sod 3.375 gm/Sodium Chloride 50 ml @ 100 mls/hr 1X ONCE IV Last administered on 11/15/20at 13:05; Start 11/15/20 at 13:00; Stop 11/15/20 at 13:29; Status DC Dextrose (Dextrose 50%-Water Syringe) 25 gm STK-MED ONCE IV ; Start 11/15/20 at 12:27; Stop 11/15/20 at 12:27; Status DC Dextrose (Dextrose 50%-Water Syringe) 25 gm 1X ONCE IV Last administered on 11/15/20at 12:35; Start 11/15/20 at 12:45; Stop 11/15/20 at 12:46; Status DC Ondansetron HCl (Zofran) 4 mg PRN Q8HRS PRN IV NAUSEA/VOMITING; Start 11/15/20 at 13:00; Stop 11/15/20 at 18:28; Status DC Fentanyl Citrate (Fentanyl 2ml Vial) 50 mcg PRN Q1HR PRN IV PAIN; Start 11/15/20 at 13:00; Stop 11/16/20 at 12:59; Status DC Acetaminophen (Tylenol) 650 mg PRN Q4HRS PRN PO FEVER > 100.3'F; Start 11/15/20 at 13:00; Stop 11/15/20 at 18:29; Status DC Dextrose/Sodium Chloride 1,000 ml @ 50 mls/hr Q20H IV Last administered on 11/17/20at 09:28; Start 11/15/20 at 16:00 Sodium Bicarbonate (Sodium Bicarb Adult 8.4% Syr) 100 meq 1X ONCE IV Last administered on 11/15/20at 16:43; Start 11/15/20 at 15:30; Stop 11/15/20 at 15:31; Status DC Vancomycin HCl (Vanco Per Pharmacy) 1 each PRN DAILY PRN MC SEE COMMENTS; Start 11/15/20 at 16:15; Stop 11/16/20 at 11:05; Status DC Cefepime HCl (Maxipime) 2 gm Q24H IVP Last administered on 11/16/20at 16:30; Start 11/15/20 at 17:00 Sennosides (Senna) 17.2 mg PRN BID PRN PO CONSTIPATION; Start 11/15/20 at 16:15 Docusate Sodium (Colace) 100 mg PRN DAILY PRN PO HARD STOOLS; Start 11/15/20 at 16:15 Ondansetron HCl (Zofran) 4 mg PRN Q6HRS PRN IVP NAUSEA/VOMITING; Start 11/15/20 at 16:15 Dextrose (Dextrose 50%-Water Syringe) 12.5 gm PRN Q15MIN PRN IV SEE COMMENTS; Start 11/15/20 at 16:15 Acetaminophen (Tylenol) 650 mg PRN Q4HRS PRN PO TEMP OVER 100.4F OR MILD PAIN; Start 11/15/20 at 16:15 Heparin Sodium (Porcine) (Heparin Sodium) 5,000 unit Q12HR SQ ; Start 11/15/20 at 21:00; Stop 11/15/20 at 16:17; Status DC Amiodarone HCl (Cordarone) 200 mg DAILY PO ; Start 11/16/20 at 09:00; Stop 11/15/20 at 16:38; Status DC Aspirin (Tat[place] Aspirin) 325 mg DAILY PO ; Start 11/16/20 at 09:00; Stop 11/15/20 at 16:38; Status DC Fluticasone Propionate (Flonase) 2 spray DAILY NS Last administered on 11/17/20at 08:37; Start 11/16/20 at 09:00 Gabapentin (Neurontin) 600 mg BID PO Last administered on 11/17/20at 09:23; Start 11/15/20 at 21:00 Metoprolol Tartrate (Lopressor) 25 mg BID PO Last administered on 11/15/20at 21:28; Start 11/15/20 at 21:00; Stop 11/16/20 at 09:08; Status DC Citalopram Hydrobromide (CeleXA) 40 mg DAILY PO Last administered on 11/17/20at 09:23; Start 11/16/20 at 09:00 Pantoprazole Sodium (Protonix) 40 mg DAILYAC PO Last administered on 11/17/20at 08:36; Start 11/16/20 at 07:30 Thiamine Mononitrate (Vitamin B-1) 300 mg DAILY PO ; Start 11/15/20 at 16:30; Stop 11/15/20 at 16:22; Status DC Thiamine HCl 300 mg/Dextrose 53 ml @ 102 mls/hr Q8HRS IV Last administered on 11/17/20at 06:17; Start 11/15/20 at 22:00; Stop 11/17/20 at 09:46; Status DC Metronidazole 100 ml @ 100 mls/hr Q12HR IV Last administered on 11/17/20at 08:41; Start 11/15/20 at 21:00 Metoprolol Tartrate (Lopressor) 50 mg BID PO Last administered on 11/17/20at 09:24; Start 11/16/20 at 09:15 Furosemide (Lasix) 40 mg 1X ONCE IVP Last administered on 11/16/20at 14:08; Start 11/16/20 at 14:00; Stop 11/16/20 at 14:01; Status DC Potassium Chloride (Klor-Con) 60 meq 1X ONCE PO Last administered on 11/16/20at 14:06; Start 11/16/20 at 14:00; Stop 11/16/20 at 14:01; Status DC Calcium Carbonate/ Glycine (Tums) 500 mg PRN Q4HRS PRN PO MILD INDIGESTION; Start 11/16/20 at 21:15 Calcium Carbonate/ Glycine (Tums) 1,000 mg PRN Q4HRS PRN PO SEVERE INDIGESTION Last administered on 11/16/20at 21:37; Start 11/16/20 at 21:30 Albuterol/ Ipratropium (Duoneb) 3 ml RTQID NEB Last administered on 11/17/20at 08:43; Start 11/17/20 at 09:00 Budesonide (Pulmicort) 0.5 mg RTBID NEB Last administered on 11/17/20at 08:43; Start 11/17/20 at 09:00 Thiamine Mononitrate (Vitamin B-1) 300 mg TID PO ; Start 11/17/20 at 14:00 Active Scripts Active Amiodarone Hcl 200 Mg Tablet 200 Mg PO DAILY 30 Days Eliquis (Apixaban) 5 Mg Tablet 5 Mg PO BID 30 Days Doxycycline Hyclate 100 Mg Tablet 100 Mg PO BID 5 Days Klor-Con M20 (Potassium Chloride) 20 Meq Tab.er.prt 20 Meq PO DAILYWBKFT 30 Days Furosemide 40 Mg Tablet 40 Mg PO DAILY 30 Days Reported Omeprazole 20 Mg Capsule.dr 1 Cap PO DAILY Metoprolol Tartrate 25 Mg Tablet 1 Tab PO BID Feosol (Ferrous Sulfate) 325 Mg Tablet 325 Mg PO DAILY Aspirin 325 Mg Tablet 1 Tab PO DAILY Amitriptyline Hcl 50 Mg Tablet 1 Tab PO QHS Ultram (Tramadol Hcl) 50 Mg Tablet 1 Tab PO Q6HRS PRN Dulera 100 Mcg/5 Mcg Inhaler (Mometasone/Formoterol) 13 Gm Hfa.aer.ad 2 Puff IH BID Lidoderm (Lidocaine) 700 Mg Adh..patch 1 Patch TP DAILY PRN Neurontin (Gabapentin) 300 Mg Capsule 2 Cap PO BID Flonase (Fluticasone Propionate) 16 Gm [place].susp 2 [place] NS DAILY Cyclobenzaprine Hcl 10 Mg Tablet 1 Tab PO TID PRN Celexa (Citalopram Hydrobromide) 40 Mg Tablet 1 Tab PO DAILY Cetirizine Hcl 10 Mg Tablet 1 Tab PO DAILY Proair Hfa Inhaler (Albuterol Sulfate) 8.5 Gm Hfa.aer.ad 2 Puff IH PRN Q4-6HRS Allergies Allergies: Coded Allergies: ibuprofen (Verified Allergy, Intermediate, Hives, 08/08/20) I S O L A T I O N *CONTACT* (Verified Allergy, Unknown, 08/08/20) mrsa + ROS General: YES: Fatigue, Other (low temps) PSYCHOLOGICAL ROS: No: Anxiety, Depression Eyes: No Blurry vision, No Double vision HEENT: No: Heacaches, Sore Throat Hematological and Lymphatic: YES: Bleeding Problems; No: Blood Clots Respiratory: YES: Shortness of breath; No: Cough Cardiovascular: No Chest Pain, No Palpitations Gastrointestinal: No Nausea, No Vomiting, No Abdominal Pain Genitourinary: No Dysuria, No Hematuria Musculoskeletal: Yes Muscular Weakness; No Joint Pain Neurological: No Headaches Skin: No Pruritus, No Rash Physical Exam General: Alert, Cooperative, Other (appears ill ) HEENT: PERRLA, Mucous membr. moist/pink Lungs: Other (diminished ) Heart: Other (afib) Abdomen: Soft, No tenderness, Other (distended ) Extremities: No clubbing, No cyanosis Skin: No rashes, No breakdown Neuro: Normal speech, Sensation intact Psych/Mental Status: Mental status NL, Mood NL Vitals VITALS Vital Signs Date Time Temp Pulse Resp B/P (MAP) Pulse Ox O2 Delivery O2 Flow Rate FiO2 11/17/20 09:24 106 102/68 11/17/20 09:00 93.4 96 Room Air 93.4 11/17/20 08:04 21 11/16/20 07:00 Labs Labs Laboratory Tests Test 11/15/20 11:09 11/15/20 11:40 11/15/20 12:25 11/15/20 13:00 White Blood Count 15.4 x10^3/uL (4.0-11.0) Red Blood Count 4.73 x10^6/uL (3.50-5.40) Hemoglobin 9.3 g/dL (12.0-15.5) Hematocrit 32.9 % (36.0-47.0) Mean Corpuscular Volume 70 fL (79-100) Mean Corpuscular Hemoglobin 20 pg (25-35) Mean Corpuscular Hemoglobin Concent 28 g/dL (31-37) Red Cell Distribution Width 25.6 % (11.5-14.5) Platelet Count 367 x10^3/uL (140-400) Neutrophils (%) (Auto) 82 % (31-73) Lymphocytes (%) (Auto) 12 % (24-48) Monocytes (%) (Auto) 6 % (0-9) Eosinophils (%) (Auto) 0 % (0-3) Basophils (%) (Auto) 0 % (0-3) Neutrophils # (Auto) 12.6 x10^3/uL (1.8-7.7) Lymphocytes # (Auto) 1.8 x10^3/uL (1.0-4.8) Monocytes # (Auto) 0.9 x10^3/uL (0.0-1.1) Eosinophils # (Auto) 0.0 x10^3/uL (0.0-0.7) Basophils # (Auto) 0.0 x10^3/uL (0.0-0.2) Segmented Neutrophils % 82 % (35-66) Lymphocytes % 11 % (24-48) Monocytes % 7 % (0-10) Nucleated Red Blood Cells 2 Platelet Estimate Adequate (ADEQUATE) Large Platelets Mod Giant Platelets Few Hypochromasia Marked Poikilocytosis Present Anisocytosis Marked Microcytosis Marked Ovalocytes Present Acanthocytes Present RBC Morphology Bizarre Forms Occ Prothrombin Time 54.6 SEC (11.7-14.0) Prothromb Time International Ratio 6.0 (0.8-1.1) Sodium Level 137 mmol/L (136-145) Potassium Level 4.3 mmol/L (3.5-5.1) Chloride Level 94 mmol/L (98-107) Carbon Dioxide Level 6 mmol/L (21-32) Anion Gap 37 (6-14) Blood Urea Nitrogen 29 mg/dL (7-20) Creatinine 2.0 mg/dL (0.6-1.0) Estimated GFR (Cockcroft-Gault) 33.6 BUN/Creatinine Ratio 15 (6-20) Glucose Level 31 mg/dL (70-99) Lactic Acid Level 22.0 mmol/L (0.4-2.0) Calcium Level 10.1 mg/dL (8.5-10.1) Phosphorus Level 8.0 mg/dL (2.6-4.7) Magnesium Level 2.4 mg/dL (1.8-2.4) Total Bilirubin 3.2 mg/dL (0.2-1.0) Aspartate Amino Transf (AST/SGOT) 55 U/L (15-37) Alanine Aminotransferase (ALT/SGPT) 52 U/L (14-59) Alkaline Phosphatase 156 U/L (46-116) Troponin I Quantitative 0.034 ng/mL (0.000-0.055) HP-Hjq-E-Type Natriuretic Peptide 27751 pg/mL (0-124) Total Protein 8.0 g/dL (6.4-8.2) Albumin 3.6 g/dL (3.4-5.0) Albumin/Globulin Ratio 0.8 (1.0-1.7) Procalcitonin 2.08 ng/mL (0.00-0.10) Urine Collection Type Void Urine Color Denita Urine Clarity Cloudy Urine pH 5.0 (<5.0-8.0) Urine Specific [place] 1.015 (1.000-1.030) Urine Protein >=300 mg/dL (NEG-TRACE) Urine Glucose (UA) Negative mg/dL (NEG) Urine Ketones (Stick) Negative mg/dL (NEG) Urine Blood Negative (NEG) Urine Nitrite Negative (NEG) Urine Bilirubin Negative (NEG) Urine Urobilinogen Dipstick 1.0 mg/dL (0.2 mg/dL) Urine Leukocyte Esterase Negative (NEG) Urine RBC Occ /HPF (0-2) Urine WBC 5-10 /HPF (0-4) Urine Squamous Epithelial Cells Many /LPF Urine Amorphous Sediment Present /HPF Urine Bacteria Few /HPF (0-FEW) Urine Hyaline Casts Many /HPF Glucose (Fingerstick) 15 mg/dL (70-99) 72 mg/dL (70-99) Test 11/15/20 14:11 11/15/20 14:48 11/15/20 15:30 11/15/20 18:19 Glucose (Fingerstick) 98 mg/dL (70-99) O2 Saturation 97 % (92-99) Arterial Blood pH 7.16 (7.35-7.45) Arterial Blood pCO2 at Patient Temp < 15 mmHg (35-46) Arterial Blood pO2 at Patient Temp 119 mmHg (75-108) Arterial Blood HCO3 5 mmol/L (21-28) Arterial Blood Base Excess -21 mmol/L (-3-3) FiO2 21 Sodium Level 139 mmol/L (136-145) Potassium Level 4.1 mmol/L (3.5-5.1) Chloride Level 95 mmol/L (98-107) Carbon Dioxide Level < 5 mmol/L (21-32) Anion Gap 39 (6-14) Blood Urea Nitrogen 31 mg/dL (7-20) Creatinine 2.0 mg/dL (0.6-1.0) Estimated GFR (Cockcroft-Gault) 33.6 Glucose Level 124 mg/dL (70-99) Lactic Acid Level 22.1 mmol/L (0.4-2.0) Calcium Level 10.0 mg/dL (8.5-10.1) Troponin I Quantitative 0.018 ng/mL (0.000-0.055) Urine Opiates Screen Neg (NEG) Urine Methadone Screen Neg (NEG) Urine Barbiturates Neg (NEG) Urine Phencyclidine Screen Neg (NEG) Urine Amphetamine/Methamphetamine Neg (NEG) Urine Benzodiazepines Screen Neg (NEG) Urine Cocaine Screen Neg (NEG) Urine Cannabinoids Screen Pos (NEG) Urine Ethyl Alcohol Neg (NEG) Test 11/15/20 20:42 11/15/20 22:50 11/16/20 05:45 11/16/20 15:10 O2 Saturation 96 % (92-99) Arterial Blood pH 7.50 (7.35-7.45) Arterial Blood pCO2 at Patient Temp 25 mmHg (35-46) Arterial Blood pO2 at Patient Temp 81 mmHg (75-108) Arterial Blood HCO3 19 mmol/L (21-28) Arterial Blood Base Excess -3 mmol/L (-3-3) FiO2 21 Sodium Level 134 mmol/L (136-145) 134 mmol/L (136-145) Potassium Level 3.3 mmol/L (3.5-5.1) 3.2 mmol/L (3.5-5.1) Chloride Level 94 mmol/L (98-107) 95 mmol/L (98-107) Carbon Dioxide Level 24 mmol/L (21-32) 26 mmol/L (21-32) Anion Gap 16 (6-14) 13 (6-14) Blood Urea Nitrogen 31 mg/dL (7-20) 32 mg/dL (7-20) Creatinine 1.9 mg/dL (0.6-1.0) 1.6 mg/dL (0.6-1.0) Estimated GFR (Cockcroft-Gault) 35.6 43.4 Glucose Level 152 mg/dL (70-99) 87 mg/dL (70-99) Lactic Acid Level 8.1 mmol/L (0.4-2.0) 3.4 mmol/L (0.4-2.0) Calcium Level 9.7 mg/dL (8.5-10.1) 9.5 mg/dL (8.5-10.1) Troponin I Quantitative 0.025 ng/mL (0.000-0.055) White Blood Count 18.8 x10^3/uL (4.0-11.0) Red Blood Count 4.51 x10^6/uL (3.50-5.40) Hemoglobin 8.8 g/dL (12.0-15.5) Hematocrit 29.1 % (36.0-47.0) Mean Corpuscular Volume 65 fL (79-100) Mean Corpuscular Hemoglobin 20 pg (25-35) Mean Corpuscular Hemoglobin Concent 30 g/dL (31-37) Red Cell Distribution Width 25.4 % (11.5-14.5) Platelet Count 293 x10^3/uL (140-400) Neutrophils (%) (Auto) 85 % (31-73) Lymphocytes (%) (Auto) 9 % (24-48) Monocytes (%) (Auto) 6 % (0-9) Eosinophils (%) (Auto) 0 % (0-3) Basophils (%) (Auto) 0 % (0-3) Neutrophils # (Auto) 15.9 x10^3/uL (1.8-7.7) Lymphocytes # (Auto) 1.7 x10^3/uL (1.0-4.8) Monocytes # (Auto) 1.1 x10^3/uL (0.0-1.1) Eosinophils # (Auto) 0.0 x10^3/uL (0.0-0.7) Basophils # (Auto) 0.0 x10^3/uL (0.0-0.2) Prothrombin Time 30.7 SEC (11.7-14.0) Prothromb Time International Ratio 2.9 (0.8-1.1) BUN/Creatinine Ratio 20 (6-20) Phosphorus Level 3.2 mg/dL (2.6-4.7) Magnesium Level 2.2 mg/dL (1.8-2.4) Total Bilirubin 3.0 mg/dL (0.2-1.0) Aspartate Amino Transf (AST/SGOT) 78 U/L (15-37) Alanine Aminotransferase (ALT/SGPT) 54 U/L (14-59) Alkaline Phosphatase 129 U/L (46-116) Total Protein 7.7 g/dL (6.4-8.2) Albumin 3.1 g/dL (3.4-5.0) Albumin/Globulin Ratio 0.7 (1.0-1.7) Urine Random Creatinine 195.8 mg/dL (Not Establ.) Urine Random Total Protein 307.4 mg/dL (Not Establ.) Urine Protein/Creatinine Ratio 1570 mg/g (0-200) Test 11/16/20 22:15 11/17/20 08:20 Sodium Level 131 mmol/L (136-145) 129 mmol/L (136-145) Potassium Level 4.6 mmol/L (3.5-5.1) 5.7 mmol/L (3.5-5.1) Chloride Level 93 mmol/L (98-107) 91 mmol/L (98-107) Carbon Dioxide Level 21 mmol/L (21-32) 12 mmol/L (21-32) Anion Gap 17 (6-14) 26 (6-14) Blood Urea Nitrogen 43 mg/dL (7-20) 50 mg/dL (7-20) Creatinine 1.9 mg/dL (0.6-1.0) 2.4 mg/dL (0.6-1.0) Estimated GFR (Cockcroft-Gault) 35.6 27.2 Glucose Level 93 mg/dL (70-99) 56 mg/dL (70-99) Calcium Level 9.3 mg/dL (8.5-10.1) 9.8 mg/dL (8.5-10.1) White Blood Count 20.4 x10^3/uL (4.0-11.0) Red Blood Count 4.69 x10^6/uL (3.50-5.40) Hemoglobin 9.1 g/dL (12.0-15.5) Hematocrit 31.7 % (36.0-47.0) Mean Corpuscular Volume 68 fL (79-100) Mean Corpuscular Hemoglobin 19 pg (25-35) Mean Corpuscular Hemoglobin Concent 29 g/dL (31-37) Red Cell Distribution Width 25.1 % (11.5-14.5) Platelet Count 329 x10^3/uL (140-400) Neutrophils (%) (Auto) 82 % (31-73) Lymphocytes (%) (Auto) 11 % (24-48) Monocytes (%) (Auto) 7 % (0-9) Eosinophils (%) (Auto) 0 % (0-3) Basophils (%) (Auto) 0 % (0-3) Neutrophils # (Auto) 16.8 x10^3/uL (1.8-7.7) Lymphocytes # (Auto) 2.2 x10^3/uL (1.0-4.8) Monocytes # (Auto) 1.3 x10^3/uL (0.0-1.1) Eosinophils # (Auto) 0.0 x10^3/uL (0.0-0.7) Basophils # (Auto) 0.0 x10^3/uL (0.0-0.2) BUN/Creatinine Ratio 21 (6-20) Total Bilirubin 4.1 mg/dL (0.2-1.0) Aspartate Amino Transf (AST/SGOT) 103 U/L (15-37) Alanine Aminotransferase (ALT/SGPT) 65 U/L (14-59) Alkaline Phosphatase 144 U/L (46-116) Total Protein 7.6 g/dL (6.4-8.2) Albumin 3.1 g/dL (3.4-5.0) Albumin/Globulin Ratio 0.7 (1.0-1.7) Laboratory Tests Test 11/16/20 15:10 11/16/20 22:15 11/17/20 08:20 Urine Random Creatinine 195.8 mg/dL (Not Establ.) Urine Random Total Protein 307.4 mg/dL (Not Establ.) Urine Protein/Creatinine Ratio 1570 mg/g (0-200) Sodium Level 131 mmol/L (136-145) 129 mmol/L (136-145) Potassium Level 4.6 mmol/L (3.5-5.1) 5.7 mmol/L (3.5-5.1) Chloride Level 93 mmol/L (98-107) 91 mmol/L (98-107) Carbon Dioxide Level 21 mmol/L (21-32) 12 mmol/L (21-32) Anion Gap 17 (6-14) 26 (6-14) Blood Urea Nitrogen 43 mg/dL (7-20) 50 mg/dL (7-20) Creatinine 1.9 mg/dL (0.6-1.0) 2.4 mg/dL (0.6-1.0) Estimated GFR (Cockcroft-Gault) 35.6 27.2 Glucose Level 93 mg/dL (70-99) 56 mg/dL (70-99) Calcium Level 9.3 mg/dL (8.5-10.1) 9.8 mg/dL (8.5-10.1) White Blood Count 20.4 x10^3/uL (4.0-11.0) Red Blood Count 4.69 x10^6/uL (3.50-5.40) Hemoglobin 9.1 g/dL (12.0-15.5) Hematocrit 31.7 % (36.0-47.0) Mean Corpuscular Volume 68 fL (79-100) Mean Corpuscular Hemoglobin 19 pg (25-35) Mean Corpuscular Hemoglobin Concent 29 g/dL (31-37) Red Cell Distribution Width 25.1 % (11.5-14.5) Platelet Count 329 x10^3/uL (140-400) Neutrophils (%) (Auto) 82 % (31-73) Lymphocytes (%) (Auto) 11 % (24-48) Monocytes (%) (Auto) 7 % (0-9) Eosinophils (%) (Auto) 0 % (0-3) Basophils (%) (Auto) 0 % (0-3) Neutrophils # (Auto) 16.8 x10^3/uL (1.8-7.7) Lymphocytes # (Auto) 2.2 x10^3/uL (1.0-4.8) Monocytes # (Auto) 1.3 x10^3/uL (0.0-1.1) Eosinophils # (Auto) 0.0 x10^3/uL (0.0-0.7) Basophils # (Auto) 0.0 x10^3/uL (0.0-0.2) BUN/Creatinine Ratio 21 (6-20) Total Bilirubin 4.1 mg/dL (0.2-1.0) Aspartate Amino Transf (AST/SGOT) 103 U/L (15-37) Alanine Aminotransferase (ALT/SGPT) 65 U/L (14-59) Alkaline Phosphatase 144 U/L (46-116) Total Protein 7.6 g/dL (6.4-8.2) Albumin 3.1 g/dL (3.4-5.0) Albumin/Globulin Ratio 0.7 (1.0-1.7) Assessment/Plan Assessment/Plan sepsis leukocystosis-wbc rising 20 ARF, cr rising 2 coagulopathy--admission INR 6-down to 2.9 yesterday-recheck today pending maintaining BP, no pressor support lactic acidosis--admission 22, down yesterday to 3.9--recheck today pending abdominal distention---CT possible colitis, more distended today--xr pending has not been covid tested, ordered afib, chf, asthma await above and will review with SHRUTHI Robert MD 11/17/20 1207: CONSULT Assessment/Plan Assessment/Plan Patient seen and examined by me she is currently resting comfortably in bed denies any pain other than a headache. Last bowel movement was yesterday was normal. Abdominal exam shows mildly distended abdomen soft nontender even to de ep palpation. No peritoneal signs. CT scan reviewed which showed some thickening of the right colon suggestive of colitis no free air no ascites. Patient with significant metabolic abnormalities. Patient with elevated INR which would most likely preclude thrombolic event causing ischemic bowel. Right-sided colitis most likely infectious in nature patient on metronidazole. Hemodynamically stable at this point. Although ischemic bowel unlikely best exam would be CT angio due to her renal failure at this point test is unavailable. Recommend GI consult. Source of leukocytosis unlikely intra- abdominal. Agree with Olga assessment plan will monitor closely. No surgical plans at this time SAM MAN APRN Nov 17, 2020 10:44 SHRUTHI WALLS MD Nov 17, 2020 12:07
--- NOTE | 2020-11-17 10:48 | PDOC ---
Infectious Disease Note Subjective: Subjective Patient hypothermic this a.m. on Caridad gger Denies any headache fevers nausea vomiting abdominal pain or diarrhea Discussed with RN Vital Signs: Vital Signs Vital Signs Date Time Temp Pulse Resp B/P (MAP) Pulse Ox O2 Delivery O2 Flow Rate FiO2 11/17/20 09:24 106 102/68 11/17/20 09:00 93.4 96 Room Air 93.4 11/17/20 08:04 21 11/16/20 07:00 Physical Exam: PHYSICAL EXAM GENERAL: Alert, oriented x 3 female, lying in bed comfortably, in no acute distress. HEENT: Normocephalic, atraumatic, anicteric. NECK: Supple. LUNGS: Rales bibasilarly; otherwise clear. No accessory muscle use. HEART: Irregular. ABDOMEN: Soft, mildly tender, nondistended, no rebound or guarding. EXTREMITIES: Trace edema bilaterally. NEUROLOGIC: Alert, oriented x 3, grossly nonfocal. PSYCHIATRIC: Cooperative, appropriate mood and affect. BACK: Reveals normal curvature. No CVA tenderness. No Sky. Medications: Inpatient Meds: Current Medications Medications (Trade) Dose Ordered Sig/Kailey Start Time Stop Time Status Last Admin Dose Admin Acetaminophen (Tylenol) 650 mg PRN Q4HRS PRN 11/15/20 16:15 Albuterol/ Ipratropium (Duoneb) 3 ml RTQID 11/17/20 09:00 11/17/20 08:43 3 ML Amiodarone HCl (Cordarone) 200 mg DAILY 11/16/20 09:00 11/15/20 16:38 DC Aspirin (Tatianna Aspirin) 325 mg DAILY 11/16/20 09:00 11/15/20 16:38 DC Budesonide (Pulmicort) 0.5 mg RTBID 11/17/20 09:00 11/17/20 08:43 0.5 MG Calcium Carbonate/ Glycine (Tums) 1,000 mg PRN Q4HRS PRN 11/16/20 21:30 11/16/20 21:37 1,000 MG Cefepime HCl (Maxipime) 2 gm Q24H 11/15/20 17:00 11/16/20 16:30 2 GM Citalopram Hydrobromide (CeleXA) 40 mg DAILY 11/16/20 09:00 11/17/20 09:23 40 MG Dextrose (Dextrose 50%-Water Syringe) 12.5 gm PRN Q15MIN PRN 11/15/20 16:15 Dextrose/Sodium Chloride 1,000 ml @ 50 mls/hr Q20H 11/15/20 16:00 11/17/20 09:28 50 MLS/HR Docusate Sodium (Colace) 100 mg PRN DAILY PRN 11/15/20 16:15 Fentanyl Citrate (Fentanyl 2ml Vial) 50 mcg PRN Q1HR PRN 11/15/20 13:00 11/16/20 12:59 DC Fluticasone Propionate (Flonase) 2 spray DAILY 11/16/20 09:00 11/17/20 08:37 2 SPRAY Furosemide (Lasix) 40 mg 1X ONCE 11/16/20 14:00 11/16/20 14:01 DC 11/16/20 14:08 40 MG Gabapentin (Neurontin) 600 mg BID 11/15/20 21:00 11/17/20 09:23 600 MG Heparin Sodium (Porcine) (Heparin Sodium) 5,000 unit Q12HR 11/15/20 21:00 11/15/20 16:17 DC Metoprolol Tartrate (Lopressor) 50 mg BID 11/16/20 09:15 11/17/20 09:24 50 MG Metronidazole 100 ml @ 100 mls/hr Q12HR 11/15/20 21:00 11/17/20 08:41 100 MLS/HR Ondansetron HCl (Zofran) 4 mg PRN Q6HRS PRN 11/15/20 16:15 Pantoprazole Sodium (Protonix) 40 mg DAILYAC 11/16/20 07:30 11/17/20 08:36 40 MG Piperacillin Sod/ Tazobactam Sod 3.375 gm/Sodium Chloride 50 ml @ 100 mls/hr 1X ONCE 11/15/20 13:00 11/15/20 13:29 DC 11/15/20 13:05 100 MLS/HR Potassium Chloride (Klor-Con) 60 meq 1X ONCE 11/16/20 14:00 11/16/20 14:01 DC 11/16/20 14:06 60 MEQ Sennosides (Senna) 17.2 mg PRN BID PRN 11/15/20 16:15 Sodium Bicarbonate (Sodium Bicarb Adult 8.4% Syr) 100 meq 1X ONCE 11/15/20 15:30 11/15/20 15:31 DC 11/15/20 16:43 100 MEQ Thiamine Mononitrate (Vitamin B-1) 300 mg TID 11/17/20 14:00 Thiamine HCl 300 mg/Dextrose 53 ml @ 102 mls/hr Q8HRS 11/15/20 22:00 11/17/20 09:46 DC 11/17/20 06:17 102 MLS/HR Vancomycin HCl (Vanco Per Pharmacy) 1 each PRN DAILY PRN 11/15/20 16:15 11/16/20 11:05 DC Vancomycin HCl 2 gm/Sodium Chloride 500 ml @ 250 mls/hr 1X ONCE 11/15/20 13:00 11/15/20 14:59 DC 11/15/20 13:37 250 MLS/HR Labs: Lab Laboratory Tests Test 11/16/20 15:10 11/16/20 22:15 11/17/20 08:20 Urine Random Creatinine 195.8 mg/dL (Not Establ.) Urine Random Total Protein 307.4 mg/dL (Not Establ.) Urine Protein/Creatinine Ratio 1570 mg/g (0-200) Sodium Level 131 mmol/L (136-145) 129 mmol/L (136-145) Potassium Level 4.6 mmol/L (3.5-5.1) 5.7 mmol/L (3.5-5.1) Chloride Level 93 mmol/L (98-107) 91 mmol/L (98-107) Carbon Dioxide Level 21 mmol/L (21-32) 12 mmol/L (21-32) Anion Gap 17 (6-14) 26 (6-14) Blood Urea Nitrogen 43 mg/dL (7-20) 50 mg/dL (7-20) Creatinine 1.9 mg/dL (0.6-1.0) 2.4 mg/dL (0.6-1.0) Estimated GFR (Cockcroft-Gault) 35.6 27.2 Glucose Level 93 mg/dL (70-99) 56 mg/dL (70-99) Calcium Level 9.3 mg/dL (8.5-10.1) 9.8 mg/dL (8.5-10.1) White Blood Count 20.4 x10^3/uL (4.0-11.0) Red Blood Count 4.69 x10^6/uL (3.50-5.40) Hemoglobin 9.1 g/dL (12.0-15.5) Hematocrit 31.7 % (36.0-47.0) Mean Corpuscular Volume 68 fL (79-100) Mean Corpuscular Hemoglobin 19 pg (25-35) Mean Corpuscular Hemoglobin Concent 29 g/dL (31-37) Red Cell Distribution Width 25.1 % (11.5-14.5) Platelet Count 329 x10^3/uL (140-400) Neutrophils (%) (Auto) 82 % (31-73) Lymphocytes (%) (Auto) 11 % (24-48) Monocytes (%) (Auto) 7 % (0-9) Eosinophils (%) (Auto) 0 % (0-3) Basophils (%) (Auto) 0 % (0-3) Neutrophils # (Auto) 16.8 x10^3/uL (1.8-7.7) Lymphocytes # (Auto) 2.2 x10^3/uL (1.0-4.8) Monocytes # (Auto) 1.3 x10^3/uL (0.0-1.1) Eosinophils # (Auto) 0.0 x10^3/uL (0.0-0.7) Basophils # (Auto) 0.0 x10^3/uL (0.0-0.2) BUN/Creatinine Ratio 21 (6-20) Total Bilirubin 4.1 mg/dL (0.2-1.0) Aspartate Amino Transf (AST/SGOT) 103 U/L (15-37) Alanine Aminotransferase (ALT/SGPT) 65 U/L (14-59) Alkaline Phosphatase 144 U/L (46-116) Total Protein 7.6 g/dL (6.4-8.2) Albumin 3.1 g/dL (3.4-5.0) Albumin/Globulin Ratio 0.7 (1.0-1.7) Objective: Assessment: 1. Severe sepsis, etiology ? GI 2. Leukocytosis and lactic acidosis. Source appears multifactorial. Improving 3. Acute kidney injury with severe metabolic acidosis. 4. Abdominal pain, intermittent nausea.Colitis on CT abdomen 5. Atrial fibrillation/flutter. 6. Acute on chronic congestive heart failure. 7. Coagulopathy. 8. Abnormal liver function tests 9. Acute respiratory failure with bilateral pleural infiltrates and bilateral pleural effusion, right greater than left. 10. Pulmonary hypertension. 11. Valvular insufficiency. MR 12. History of PFO closure. Plan: Plan of Care Discontinue cefepime and Flagyl. Blood culture Start Dapto, Merrem, micafungin Like to avoid IV vancomycin due to KENNETH On bicarbonate drip Antimicrobials may need renal adjustment pharmacy to assist Monitor labs and cultures. Maintain aspiration precaution. Continue supportive care. If pt has diarrhea check stool for c diff and stool cultures Critically ill Discussed with RN. MEGAN MEHTA MD Nov 17, 2020 10:48
[2020-11-17 10:56] LABS: PROTHROMBIN TIME PATIENT 42.5 SEC (11.7-14.0)
[2020-11-17] MEDS ORDERED: NOREPINEPHRINE VIAL 8 MG in IV DEXTROSE 5% 250 ML IV PRN (11:15)
[2020-11-17] MEDS ORDERED: SODIUM BICARBONATE VIAL 150 MEQ in IV DEXTROSE 5% 1,000 ML IV ONE (11:30)
[2020-11-17] MEDS ORDERED: LIDOCAINE 1% PF 2 ML VIAL. INJ ONE (12:00)
--- NOTE | 2020-11-17 12:08 | PDOC ---
[facility] [facility] PROGRESS NOTE Date of Service DOS: DATE: 11/17/20 TIME: 12:07 Chief Complaint Chief Complaint Sepsis Colitis Severe lactic acidosis Acute respiratory failure concern for CAP Acute on chronic CHF exacerbation last echo in July 2020 showed EF of 60-65% and severely dilated right ventricle Lactic acidosis Severe symptomatic hypoglycemia KENNETH due to vasomotor nephropathy Acute volume overload Coagulopathy History of atrial fibrillation/atrial flutter Secondary cor pulmonale due to pulmonary hypertension Anemia of chronic disease History of Present Illness History of Present Illness 11/16/2020 Patient seen and examined in the ICU CT abdomen reviewed looks like she has some possible colitis Lactic acid has decreased from 22 down to 8 Discussed with RN Discussed with case management Chart reviewed Vitals/I&O Vitals/I&O: Vital Signs Date Time Temp Pulse Resp B/P (MAP) Pulse Ox O2 Delivery O2 Flow Rate FiO2 11/17/20 11:51 Room Air 11/17/20 09:24 106 102/68 11/17/20 09:00 93.4 96 93.4 11/17/20 08:04 21 11/16/20 07:00 I & O 11/16/20 11/16/20 11/17/20 15:00 23:00 07:00 Intake Total 350 ml 853 ml Output Total 300 ml 275 ml Balance 50 ml 578 ml Physical Exam Physical Exam: GENERAL: Alert, oriented x 3 female, lying in bed comfortably, in no acute distress. HEENT: Normocephalic, atraumatic, anicteric. NECK: Supple. LUNGS: Rales bibasilarly; otherwise clear. No accessory muscle use. HEART: Irregular. ABDOMEN: Soft, mildly tender, nondistended, no rebound or guarding. EXTREMITIES: Trace edema bilaterally. NEUROLOGIC: Alert, oriented x 3, grossly nonfocal. PSYCHIATRIC: Cooperative, appropriate mood and affect. BACK: Reveals normal curvature. No CVA tenderness. No Sky. General: Alert, Cooperative, Other (appears ill ) Heart: Other (afib) Lungs: Clear Abdomen: Soft, No tenderness, Other (distended ) Extremities: No clubbing, No cyanosis Skin: No rashes, No breakdown Labs Labs: Laboratory Tests Test 11/16/20 15:10 11/16/20 22:15 11/17/20 08:20 11/17/20 10:20 Urine Random Creatinine 195.8 mg/dL (Not Establ.) Urine Random Total Protein 307.4 mg/dL (Not Establ.) Urine Protein/Creatinine Ratio 1570 mg/g (0-200) Sodium Level 131 mmol/L (136-145) 129 mmol/L (136-145) Potassium Level 4.6 mmol/L (3.5-5.1) 5.7 mmol/L (3.5-5.1) Chloride Level 93 mmol/L (98-107) 91 mmol/L (98-107) Carbon Dioxide Level 21 mmol/L (21-32) 12 mmol/L (21-32) Anion Gap 17 (6-14) 26 (6-14) Blood Urea Nitrogen 43 mg/dL (7-20) 50 mg/dL (7-20) Creatinine 1.9 mg/dL (0.6-1.0) 2.4 mg/dL (0.6-1.0) Estimated GFR (Cockcroft-Gault) 35.6 27.2 Glucose Level 93 mg/dL (70-99) 56 mg/dL (70-99) Calcium Level 9.3 mg/dL (8.5-10.1) 9.8 mg/dL (8.5-10.1) White Blood Count 20.4 x10^3/uL (4.0-11.0) Red Blood Count 4.69 x10^6/uL (3.50-5.40) Hemoglobin 9.1 g/dL (12.0-15.5) Hematocrit 31.7 % (36.0-47.0) Mean Corpuscular Volume 68 fL (79-100) Mean Corpuscular Hemoglobin 19 pg (25-35) Mean Corpuscular Hemoglobin Concent 29 g/dL (31-37) Red Cell Distribution Width 25.1 % (11.5-14.5) Platelet Count 329 x10^3/uL (140-400) Neutrophils (%) (Auto) 82 % (31-73) Lymphocytes (%) (Auto) 11 % (24-48) Monocytes (%) (Auto) 7 % (0-9) Eosinophils (%) (Auto) 0 % (0-3) Basophils (%) (Auto) 0 % (0-3) Neutrophils # (Auto) 16.8 x10^3/uL (1.8-7.7) Lymphocytes # (Auto) 2.2 x10^3/uL (1.0-4.8) Monocytes # (Auto) 1.3 x10^3/uL (0.0-1.1) Eosinophils # (Auto) 0.0 x10^3/uL (0.0-0.7) Basophils # (Auto) 0.0 x10^3/uL (0.0-0.2) BUN/Creatinine Ratio 21 (6-20) Total Bilirubin 4.1 mg/dL (0.2-1.0) Aspartate Amino Transf (AST/SGOT) 103 U/L (15-37) Alanine Aminotransferase (ALT/SGPT) 65 U/L (14-59) Alkaline Phosphatase 144 U/L (46-116) Total Protein 7.6 g/dL (6.4-8.2) Albumin 3.1 g/dL (3.4-5.0) Albumin/Globulin Ratio 0.7 (1.0-1.7) Lactic Acid Level 16.0 mmol/L (0.4-2.0) Test 11/17/20 10:25 11/17/20 10:40 Prothrombin Time 42.5 SEC (11.7-14.0) Prothromb Time International Ratio 4.4 (0.8-1.1) SARS-CoV-2 Antigen (Rapid) Negative (NEGATIVE) Assessment and Plan Assessmemt and Plan Problems Medical Problems: (1) KENNETH (acute kidney injury) Status: Acute (2) Atrial fibrillation with RVR Status: Acute (3) CHF (congestive heart failure) Status: Acute (4) Hypoglycemia Status: Acute (5) Pneumonia Status: Sepsis Acute respiratory failure concern for CAP Acute on chronic CHF exacerbation last echo in July 2020 showed EF of 60-65% and severely dilated right ventricle Lactic acidosis Severe symptomatic hypoglycemia KENNETH due to vasomotor nephropathy Acute volume overload Coagulopathy History of atrial fibrillation/atrial flutter Secondary cor pulmonale due to pulmonary hypertension Anemia of chronic disease Plan ICU monitoring IV antibiotics Trend labs 7 consults are on board appreciate their input Strict I's and O's Sky to bedside drainage Diurese Continue telemetry monitoring for atrial fibrillation Continue amiodarone Continue IV empiric antibiotics Heparin for DVT prophylaxis Protonix for GI prophylaxis Full code Discussed with RN and GONZALO CC time 31 minutes I also consulted general surgery and appreciate their input please see below; sepsis leukocystosis-wbc rising 20 ARF, cr rising 2 coagulopathy--admission INR 6-down to 2.9 yesterday-recheck today pending maintaining BP, no pressor support lactic acidosis--admission 22, down yesterday to 3.9--recheck today pending abdominal distention---CT possible colitis, more distended today--xr pending has not been covid tested, ordered afib, chf, asthma await above and will review with Dr Aguilera Comment Review of Relevant I have reviewed the following items josé (where applicable) has been applied. Medications: Current Medications Medications (Trade) Dose Ordered Sig/Kailey Route PRN Reason Start Time Stop Time Status Last Admin Dose Admin Furosemide (Lasix) 40 mg 1X ONCE IVP 11/16/20 14:00 11/16/20 14:01 DC 11/16/20 14:08 Potassium Chloride (Klor-Con) 60 meq 1X ONCE PO 11/16/20 14:00 11/16/20 14:01 DC 11/16/20 14:06 Calcium Carbonate/ Glycine (Tums) 1,000 mg PRN Q4HRS PRN PO SEVERE INDIGESTION 11/16/20 21:30 11/16/20 21:37 Albuterol/ Ipratropium (Duoneb) 3 ml RTQID NEB 11/17/20 09:00 11/17/20 11:48 Budesonide (Pulmicort) 0.5 mg RTBID NEB 11/17/20 09:00 11/17/20 08:43 Sodium Bicarbonate 150 meq/Dextrose 1,150 ml @ 125 mls/hr Q9H12M ONCE IV 11/17/20 11:30 11/17/20 20:41 11/17/20 11:26 Norepinephrine Bitartrate 8 mg/ Dextrose 258 ml @ 15.344 mls/ hr CONT PRN IV PER PROTOCOL 11/17/20 11:15 11/17/20 11:32 Justifications for Admission Other Justification chf exacerbation GARETH SOLITARIO III DO Nov 17, 2020 12:08
--- NOTE | 2020-11-17 12:26 | RAD ---
XR ABDOMEN COMP ACUTE History: Reason: abdominal distention / Spl. Instructions: / History: Technique: Upright and supine views of the abdomen. Comparison: CT November 15, 2020 Findings: Small right pleural effusion with adjacent consolidations. Enlarged cardiac size. Prior median sterno cuauhtemoc. Right PICC with tip projecting over the cavoatrial junction. No pneumoperitoneum. Several nondilated air-filled loops of small bowel. Air throughout the colon. Impression: 1. Nonobstructed bowel gas pattern. 2. Small right pleural effusion with adjacent consolidation. Electronically signed by: Robert Grider DO (11/17/2020 12:24 PM) [id number]
[2020-11-17] MEDS: MEROPENEM 500 MG in IV NORMAL SALINE 50ML 50 ML IV SCH ×2 (12:55→22:09)
[2020-11-17] MEDS: MICAFUNGIN 100 MG in IV DEXTROSE 5% 100ML 100 ML IV SCH (12:58)
--- NOTE | 2020-11-17 13:07 | PDOC2 ---
GI CONSULT Date of Service: DATE: 11/17/20 TIME: 13:01 Reason For Consult: elevated LFTs, coagulopathy HPI: HPI: 39 y/o female admitted w/ SOA, multiple lab abnormalities/sepsis. Other notes mention abd distention, LE edema. Attempted to see earlier today - was having art line placed. Returned to see w/ Dr. Leon - team was preparing for intubation. Reviewed chart and d/w nurse - pt denies pain, has been lethargic today, has no GI complaints. Med list includes Eliquis, amiodarone, omeprazole. PMH: PMH: CHF, HTN, A Fib/flutter, pulm HTN, asthma, anxiety, allergic rhinitis ASD repair, pilonidal cyst removal Social History: Smoke: Quit ROS: Per HPI. Vitals: Vitals: Vital Signs Date Time Temp Pulse Resp B/P (MAP) Pulse Ox O2 Delivery O2 Flow Rate FiO2 11/17/20 11:51 Room Air 11/17/20 09:24 106 102/68 11/17/20 09:00 93.4 96 93.4 11/17/20 08:04 21 11/16/20 07:00 Labs: Labs: Laboratory Tests Test 11/16/20 15:10 11/16/20 22:15 11/17/20 08:20 11/17/20 10:20 Urine Random Creatinine 195.8 mg/dL (Not Establ.) Urine Random Total Protein 307.4 mg/dL (Not Establ.) Urine Protein/Creatinine Ratio 1570 mg/g (0-200) Sodium Level 131 mmol/L (136-145) 129 mmol/L (136-145) Potassium Level 4.6 mmol/L (3.5-5.1) 5.7 mmol/L (3.5-5.1) Chloride Level 93 mmol/L (98-107) 91 mmol/L (98-107) Carbon Dioxide Level 21 mmol/L (21-32) 12 mmol/L (21-32) Anion Gap 17 (6-14) 26 (6-14) Blood Urea Nitrogen 43 mg/dL (7-20) 50 mg/dL (7-20) Creatinine 1.9 mg/dL (0.6-1.0) 2.4 mg/dL (0.6-1.0) Estimated GFR (Cockcroft-Gault) 35.6 27.2 Glucose Level 93 mg/dL (70-99) 56 mg/dL (70-99) Calcium Level 9.3 mg/dL (8.5-10.1) 9.8 mg/dL (8.5-10.1) White Blood Count 20.4 x10^3/uL (4.0-11.0) Red Blood Count 4.69 x10^6/uL (3.50-5.40) Hemoglobin 9.1 g/dL (12.0-15.5) Hematocrit 31.7 % (36.0-47.0) Mean Corpuscular Volume 68 fL (79-100) Mean Corpuscular Hemoglobin 19 pg (25-35) Mean Corpuscular Hemoglobin Concent 29 g/dL (31-37) Red Cell Distribution Width 25.1 % (11.5-14.5) Platelet Count 329 x10^3/uL (140-400) Neutrophils (%) (Auto) 82 % (31-73) Lymphocytes (%) (Auto) 11 % (24-48) Monocytes (%) (Auto) 7 % (0-9) Eosinophils (%) (Auto) 0 % (0-3) Basophils (%) (Auto) 0 % (0-3) Neutrophils # (Auto) 16.8 x10^3/uL (1.8-7.7) Lymphocytes # (Auto) 2.2 x10^3/uL (1.0-4.8) Monocytes # (Auto) 1.3 x10^3/uL (0.0-1.1) Eosinophils # (Auto) 0.0 x10^3/uL (0.0-0.7) Basophils # (Auto) 0.0 x10^3/uL (0.0-0.2) BUN/Creatinine Ratio 21 (6-20) Total Bilirubin 4.1 mg/dL (0.2-1.0) Aspartate Amino Transf (AST/SGOT) 103 U/L (15-37) Alanine Aminotransferase (ALT/SGPT) 65 U/L (14-59) Alkaline Phosphatase 144 U/L (46-116) Total Protein 7.6 g/dL (6.4-8.2) Albumin 3.1 g/dL (3.4-5.0) Albumin/Globulin Ratio 0.7 (1.0-1.7) Lactic Acid Level 16.0 mmol/L (0.4-2.0) Test 11/17/20 10:25 11/17/20 10:40 Prothrombin Time 42.5 SEC (11.7-14.0) Prothromb Time International Ratio 4.4 (0.8-1.1) SARS-CoV-2 Antigen (Rapid) Negative (NEGATIVE) URINE CULTURE Final Final No Growth on 11/16/20 at 0840 BLOOD CULTURE Preliminary NO GROWTH AFTER 1 DAY Allergies: Coded Allergies: ibuprofen (Verified Allergy, Intermediate, Hives, 08/08/20) I S O L A T I O N *CONTACT* (Verified Allergy, Unknown, 08/08/20) mrsa + Medications: Current Medications Medications (Trade) Dose Ordered Sig/Kailey Route PRN Reason Start Time Stop Time Status Last Admin Dose Admin Furosemide (Lasix) 40 mg 1X ONCE IVP 11/16/20 14:00 11/16/20 14:01 DC 11/16/20 14:08 Potassium Chloride (Klor-Con) 60 meq 1X ONCE PO 11/16/20 14:00 11/16/20 14:01 DC 11/16/20 14:06 Calcium Carbonate/ Glycine (Tums) 1,000 mg PRN Q4HRS PRN PO SEVERE INDIGESTION 11/16/20 21:30 11/16/20 21:37 Albuterol/ Ipratropium (Duoneb) 3 ml RTQID NEB 11/17/20 09:00 11/17/20 11:48 Budesonide (Pulmicort) 0.5 mg RTBID NEB 11/17/20 09:00 11/17/20 08:43 Sodium Bicarbonate 150 meq/Dextrose 1,150 ml @ 125 mls/hr Q9H12M ONCE IV 11/17/20 11:30 11/17/20 20:41 11/17/20 11:26 Norepinephrine Bitartrate 8 mg/ Dextrose 258 ml @ 15.344 mls/ hr CONT PRN IV PER PROTOCOL 11/17/20 11:15 11/17/20 11:32 Meropenem 500 mg/ Sodium Chloride 50 ml @ 100 mls/hr Q8HRS IV 11/17/20 12:30 11/17/20 12:55 Micafungin Sodium 100 mg/Dextrose 100 ml @ 100 mls/hr Q24H IV 11/17/20 12:30 11/17/20 12:58 Imaging: Imaging: CXR IMPRESSION: Right lung base airspace opacities likely pneumonia or atelectasis with small right pleural effusion slightly increased since prior exam. CT A/P IMPRESSION: 1. Diffuse wall thickening at the ascending colon, favored represent colitis. This may be infectious or inflammatory in etiology. 2. Moderate right and small left pleural effusion with hazy adjacent airspace disease may relate to pulmonary edema. Superimposed infectious process is difficult to exclude. CXR IMPRESSION: Right PICC line in satisfactory position. Stable cardiomegaly. Persistent hazy opacification in the right lower lobe with a small right pleural effusion without significant change. AAS Impression: 1. Nonobstructed bowel gas pattern. 2. Small right pleural effusion with adjacent consolidation. PE: GEN: in Trendelenburg, talking on phone - visaul exam done HEENT: Atraumatic LUNGS: intubation pending HEART: irregular on monitor ABD: some distention NEURO/PSYCH: awake A/P: A/P: SOA, sepsis Lactic acidosis, leukocytosis, COREEN, coagulopathy, KENNETH, hyponatremia, elevated LFTs Abnormal CT - diffuse wall thickening at the ascending colon - per staff denies pain, bleeding, diarrhea +cannabinoids Rapid COVID negative 11/17 H/o ASD repair, CHF, A Fib - on amiodarone and Eliquis -- Condition worsening, plans for intubation. On atbx per ID. Change to IV PPI, follow labs. EMILEE WRIGHT Nov 17, 2020 13:07
[2020-11-17] MEDS ORDERED: PHENYLEPHRINE INJ 50 MG in IV NORMAL SALINE 250ML 250 ML IV PRN (13:30)
[2020-11-17] MEDS ORDERED: VASOPRESSIN 20 UNIT in IV DEXTROSE 5% 100ML 100 ML IV PRN (13:30)
[2020-11-17] MEDS: VASOPRESSIN 20 UNIT in IV DEXTROSE 5% 100ML 100 ML IV PRN ×2 (13:33→19:44)
[2020-11-17] MEDS: NOREPINEPHRINE VIAL 32 MG in IV D5W 250ML IV PRN ×2 (13:47→19:44)
[2020-11-17] MEDS ORDERED: SUCCINYLCHOLINE 200 MG/10 ML VIAL. ONE (14:00)
[2020-11-17] MEDS ORDERED: HYDROCORTISONE SOD SUCC/PF 100 MG/2 ML VIAL. IVP ONE (14:00)
[2020-11-17] MEDS ORDERED: IV RINGERS,LACTATED 1000ML 1,000 ML IV ONE (14:00)
[2020-11-17] MEDS: THIAMINE 100 MG TABLET. PO SCH ×2 (14:00→21:00)
[2020-11-17] MEDS ORDERED: ETOMIDATE 20 MG/10 ML VIAL. IV ONE ×2 (14:00→14:15)
[2020-11-17] MEDS ORDERED: fentaNYL PF VIAL 100 MCG/2 ML VIAL IV PRN ×2 (14:00)
[2020-11-17] MEDS ORDERED: MORPHINE SULFATE 2 MG/ML VIAL. IV PRN (14:00)
[2020-11-17] MEDS ORDERED: MORPHINE SULFATE 4 MG/ML VIAL. IV PRN (14:00)
[2020-11-17] MEDS ORDERED: SODIUM BICARB ADULT 8.4% 50 MEQ/50 ML DISP.SYRIN. ONE (14:02)
[2020-11-17] MEDS ORDERED: SODIUM BICARB ADULT 8.4% 50 MEQ/50 ML DISP.SYRIN. IV ONE ×2 (14:15)
[2020-11-17] MEDS ORDERED: SUCCINYLCHOLINE 200 MG/10 ML VIAL. IV ONE (14:15)
[2020-11-17 14:21] LABS: BASE EXCESS COOX -16 mmol/L (-3-3); HCO3 COOX 10 mmol/L (21-28); METHEMOGLOBIN 2.3 % (0.0-1.9); OXYHEMOGLOBIN 15.9 %; PCO2 COOX 26 mmHg (35-46)
[2020-11-17] MEDS: DAPTOmycin (GENERIC) IVPB 390 MG in IV NORMAL SALINE 50ML 50 ML IV SCH (14:22)
[2020-11-17 14:30] LABS: PO2 COOX < 42 mmHg (75-108); SAT O2 COOX 16 % (92-99)
[2020-11-17 14:44] LABS: HEMOGLOBIN 8.9 g/dL (12.0-15.5); RED BLOOD COUNT 4.51 x10^6/uL (3.50-5.40)
--- NOTE | 2020-11-17 14:53 | RAD ---
XR CHEST 1V History: Reason: ett placement, OG TUBE PLACEMENT / Spl. Instructions: / History: Comparison: November 16, 2020 Findings: Interval intubation with endotracheal tube tip 5.6 cm above the jazmine. Enteric tube with tip project ing over the gastric fundus. Small right pleural effusion. Patchy bibasilar opacities. Enlarged iliac size. Stable right PICC. Prior median sternotomy. Impression: 1. Interval intubation and placement of enteric tube. 2. Small right pleural effusion with adjacent opacities, unchanged. Electronically signed by: Robert Grider DO (11/17/2020 2:51 PM) [id number]
[2020-11-17 14:58] LABS: PROTHROMBIN TIME PATIENT 42.2 SEC (11.7-14.0)
[2020-11-17 15:00] LABS: ALBUMIN 3.1 g/dL (3.4-5.0); ALBUMIN/GLOBULIN RATIO 0.8 (1.0-1.7); CALCIUM 9.1 mg/dL (8.5-10.1); CREATININE 2.7 mg/dL (0.6-1.0); GFR 23.7; TOTAL BILIRUBIN 4.6 mg/dL (0.2-1.0)
--- NOTE | 2020-11-17 15:10 | PDOC ---
Provider Note Date of Service: DATE: 11/17/20 TIME: 15:05 Provider Note Second visit today, patient deteriorated earlier today, intubated by anesthesia. Art line placed, blood pressure very low, I spoke with the nursing staff on several occasions, I been giving her crystalloids and colloids for hypotension she was started on multiple pressors. Despite vasopressin and Levophed norepinephrine and Marko-Synephrine her blood pressure is still low. Patient empirically started on Solu-Cortef Repeat labs H&H is stable. Chest x-ray reviewed no significant change after intubation. Case discussed with Dr. Corado, he was consulted. I updated the son and mother, I made copies of infectious disease note, surgery note, in my note. Provided the notes to the son. I informed the son that she is critically ill, more than likely this is caused by sepsis, the etiology of the sepsis is unknown at this time. We will repeat H&H every 2 hours. Critical care time from 2:50 PM to 3:09 PM Justifications for Admission Other Justification chf exacerbation DARIAN BASS MD Nov 17, 2020 15:09
[2020-11-17] MEDS ORDERED: ALBUMIN HUMAN 5% 500 ML IV ONE (15:15)
--- NOTE | 2020-11-17 15:16 | NUR ---
SS following up with discharge planning. SS reviewed pt chart and discussed with pt RN. Pt BP and temperature dropped today. Lactic 16. Pt unstable. Pt was intubated and now on vent at 100%. Pt on four pressors. Pt on versed, levophed, jo, and epinephrin. Pt on IV Daptomycin, IV Meropenem, and IV Micafungin. Pt in bear hugger. Sky cath in place. Not stable. SS will continue to follow for discharge planning.
--- NOTE | 2020-11-17 15:18 | NUR ---
At 1200 unable to get bp manually or with doppler. Anesthesia called to place an arterial line for blood pressure monitoring. Arterial line difficult to place, arterial line placed in the left brachial artery at 1315. Decent waveform noted, zeroed balanced and pressure reading 20/30. Levo had been started when BP was unable to be obtained. Levo increased per protocol. 1330 ABG obtained due to O2 sat with good waveform and reading 32, and several critical values called to Dr. Heller and received orders to intubate. 1410 Pt intubated with 8.0 Tube 22 at the teeth. OG placed with dark bloody drainage returned. Unable to get blood pressure up to 90 systolically with just levo. Vasopressin added then jo added and finally epi. Blood pressure per arterial line still reads 47/39 and unable to get a blood pressure manually or with the monitor. Mother and son here to see the patient and spoke with Dr. Heller.
[2020-11-17 15:25] LABS: D-DIMER 13.78 ug/mlFEU (0.00-0.50)
[2020-11-17] MEDS ORDERED: DIGOXIN IV 500 MCG/2 ML AMPUL. IV ONE (15:30)
[2020-11-17] MEDS ORDERED: CALCIUM GLUCONATE 1,000 MG in IV NORMAL SALINE 100ML 100 ML IV ONE (17:15)
--- NOTE | 2020-11-17 17:24 | RAD ---
Exam: Chest one view INDICATION: Central line placement TECHNIQUE: Frontal view of the chest Comparisons: 11/17/2020 FINDINGS: Endotracheal tube with tip approximately 4 cm above the jazmine. Enteric tube traverses below the diap hragm distal tip in the left upper quadrant likely in the stomach. There is a right-sided PICC with t ip at the atrial caval junction. Right IJ catheter with tip at the atrial caval junction. No pneumoth orax. Heart is enlarged. Pulmonary vessels are obscured. Hazy opacities lungs bilaterally. IMPRESSION: Lines and tubes described above. Electronically signed by: Lorenzo Gayle MD (11/17/2020 5:21 PM) [email or web address]
[2020-11-17] MEDS ORDERED: EPINEPHrine VIAL 10 MG in IV NORMAL SALINE 250ML IV PRN (17:30)
[2020-11-17] MEDS: EPINEPHrine VIAL 5 MG in IV NORMAL SALINE 250ML 250 ML IV PRN ×2 (17:36→19:44)
--- NOTE | 2020-11-17 17:53 | NUR ---
New arterial line started in the right brachial. Old art line removed.
[2020-11-17] MEDS: IV RINGERS,LACTATED 1000ML 1,000 ML IV SCH ×2 (18:10→22:10)
[2020-11-17 18:17] LABS: HEMOGLOBIN 8.4 g/dL (12.0-15.5)
[2020-11-17] MEDS: MIDAZOLAM 100mg/100ml NS BAG 100 ML IV PRN (19:44)
[2020-11-17] MEDS ORDERED: VECURONIUM BOLUS 10 MG VIAL. IV PRN (20:00)
[2020-11-17] MEDS: HYDROCORTISONE SOD SUCC/PF 100 MG/2 ML VIAL. IVP SCH (22:09)
[2020-11-17] MEDS: CHLORHEXIDINE 0.12% 15 ML MOUTHWASH. MM SCH (22:09)
[2020-11-18] VITALS (24 sets, daily range): BP systolic 81–125; BP diastolic 1–81
[2020-11-18 00:13] LABS: HEMATOCRIT 31.9 % (36.0-47.0)
[2020-11-18] MEDS: IV RINGERS,LACTATED 1000ML 1,000 ML IV SCH ×4 (01:00→19:32)
[2020-11-18] MEDS: NOREPINEPHRINE VIAL 32 MG in IV D5W 250ML IV PRN (03:50)
[2020-11-18] MEDS: VASOPRESSIN 20 UNIT in IV DEXTROSE 5% 100ML 100 ML IV PRN ×3 (03:50→22:15)
[2020-11-18] MEDS: MIDAZOLAM 100mg/100ml NS BAG 100 ML IV PRN ×3 (03:58→22:16)
[2020-11-18] MEDS: IV DEXTROSE 5 %-0.45 % NACL 1,000 ML IV SCH (04:00)
[2020-11-18] MEDS: HYDROCORTISONE SOD SUCC/PF 100 MG/2 ML VIAL. IVP SCH ×3 (06:17→21:25)
[2020-11-18] MEDS: MEROPENEM 500 MG in IV NORMAL SALINE 50ML 50 ML IV SCH (06:17)
[2020-11-18 06:49] LABS: PROTHROMBIN TIME PATIENT 61.7 SEC (11.7-14.0)
[2020-11-18 07:00] LABS: ALBUMIN 2.8 g/dL (3.4-5.0); DIRECT BILIRUBIN 3.6 mg/dL (0.0-0.2); TOTAL BILIRUBIN 4.5 mg/dL (0.2-1.0); TOTAL PROTEIN 6.1 g/dL (6.4-8.2)
[2020-11-18 07:40] LABS: CALCIUM 8.6 mg/dL (8.5-10.1); POTASSIUM 5.2 mmol/L (3.5-5.1)
[2020-11-18] MEDS: PANTOPRAZOLE IV PUSH 40 MG VIAL. IVP SCH (07:52)
[2020-11-18] MEDS: IPRATRPIUM/ALBUTEROL 0.5/2.5MG 3 ML NEBU. NEB SCH ×4 (08:00→20:00)
[2020-11-18] MEDS: BUDESONIDE 0.5 MG/2 ML NEBU. NEB SCH ×2 (08:00→20:00)
--- NOTE | 2020-11-18 08:14 | CARD ---
MR#: [id number] Date of Study: 11/17/2020 Ordering Physician: KELLY FLOOD, Referring Physician: KELLY FLOOD, Tech: Carolynn Herndon [facility] APPROVED REPORT EXAM: Two-dimensional and M-mode echocardiogram with Doppler and color Doppler. Other Information Quality : AverageHR: 140bpm Rhythm : NSRTachycardia INDICATION 2D DIMENSIONS RVDd5.3 (2.9-3.5cm)Left Atrium(2D)3.7 (1.6-4.0cm) IVSd1.1 (0.7-1.1cm)Aortic Root(2D)2.2 (2.0-3.7cm) LVDd3.8 (3.9-5.9cm)LVOT Diameter1.5 (1.8-2.4cm) PWd1.1 (0.7-1.1cm)LVDs2.8 (2.5-4.0cm) FS (%) 26.9 %SV32.2 ml LVEF(%)53.3 (>50%) Aortic Valve AoV Peak Chris.113.1cm/Katy Peak GR.5.1mmHg LVOT Peak Chris.93.4cm/sAVA (VMAX)1.46cm2 Mitral Valve MV E Peak Gr.25mmHgMV E Mean Gr.10mmHg Tricuspid Valve TR P. [id number] Peak Gr.58mmHg LEFT VENTRICLE The left ventricle is normal size. There is borderline concentric left ventricular hypertrophy. The l eft ventricular systolic function is severely impaired. Estimated ejection fraction 15-20%. Flatteni ng of interventricular septum consistent with RV volume/pressure overload. Unable to determine diasto lic fx. No left ventricle thrombus noted on this study. RIGHT VENTRICLE The right ventricle is severely dilated. There is normal right ventricular wall thickness. Systolic f unction is severely reduced. There is flattening of the ventricular septum indicating right ventricul ar volume and pressure overload. ATRIA The left atrium is moderately dilated. The right atrium is moderately dilated. The interatrial septum is intact with no evidence for an atrial septal defect or patent foramen ovale as noted on 2-D or Do ppler imaging. AORTIC VALVE The aortic valve is normal in structure and function. Doppler and Color Flow revealed no significant aortic regurgitation. There is no significant aortic valvular stenosis. MITRAL VALVE The mitral valve is mildly thickened. The velocity across the mitral valve is increased with a calcul ated gradient 9.6 mmHg. There is no evidence of mitral valve prolapse. There is no mitral valve steno sis. Doppler and Color-flow revealed mild to moderate eccentric mitral regurgitation. TRICUSPID VALVE The tricuspid valve is normal in structure and function. Doppler and Color Flow revealed severe tricu spid regurgitation. Estimated PAP 75 mmHg. There is no tricuspid valve stenosis. PULMONIC VALVE The pulmonary valve is normal in structure and function. Doppler and Color Flow revealed no pulmonic valvular regurgitation. GREAT VESSELS The aortic root is normal in size. The ascending aorta is normal in size. The IVC is dilated and unre sponsive. PERICARDIAL EFFUSION There is no evidence of significant pericardial effusion. Critical Notification Critical Value: No <Conclusion> The left ventricular systolic function is severely impaired. Estimated ejection fraction 15-20%. Flattening of interventricular septum consistent with RV volume/pressure overload. The right ventricle is severely dilated. Moderate biatrial dilation. Mild to moderate eccentric mitral regurgitation. Severe tricuspid regurgitation. Severe pulmonary hypertension with estimated PAP 75 mmHg. There is no evidence of significant pericardial effusion. Signed by : Aaron Mullins, Electronically Approved : 11/18/2020 08:13:51
[2020-11-18 08:19] LABS: BASO # 0.1 x10^3/uL (0.0-0.2); BASO % 1 % (0-3); EOS % 0 % (0-3); HEMATOCRIT 30.8 % (36.0-47.0); HEMOGLOBIN 8.5 g/dL (12.0-15.5); LYMPH # 3.3 x10^3/uL (1.0-4.8); LYMPH % 12 % (24-48); MEAN CORPUSCULAR HEMOGLOBIN 20 pg (25-35); MEAN CORPUSCULAR HGB CONC 28 g/dL (31-37); MEAN CORPUSCULAR VOLUME 70 fL (79-100); MONO # 1.3 x10^3/uL (0.0-1.1); MONO % 5 % (0-9); NEUT % 82 % (31-73); PLATELET COUNT 243 x10^3/uL (140-400); RED BLOOD COUNT 4.38 x10^6/uL (3.50-5.40); RED CELL DISTRIBUTION WIDTH 25.9 % (11.5-14.5); WHITE BLOOD COUNT 26.7 x10^3/uL (4.0-11.0)
--- NOTE | 2020-11-18 08:34 | PDOC ---
SAM MAN SOC[employer] INSURANCE ANALYST 11/18/20 0834: SURGICAL PROGRESS NOTE DATE: 11/18/20 TIME: 08:32 Subjective intubated pressor support possible CRRT today Vital Signs Vital Signs Date Time Temp Pulse Resp B/P (MAP) Pulse Ox O2 Delivery O2 Flow Rate FiO2 11/18/20 08:12 99 Ventilator 11/18/20 07:00 98 26 89/47 (61) 11/18/20 04:00 98.9 98.9 11/17/20 14:00 6.0 I&O Intake and Output 11/18/20 07:00 Intake Total 8161.5 ml Output Total 535 ml Balance 7626.5 ml Intake Oral 0 ml IV Total 8161.5 ml Output Urine Total 35 ml Gastric Drainage Total 500 ml General: No acute distress, Other (sedated ) HEENT: Other (og) Abdomen: Soft, Other (less distended) Labs Laboratory Tests Test 11/16/20 15:10 11/16/20 22:15 11/17/20 08:20 11/17/20 10:20 Urine Random Creatinine 195.8 mg/dL (Not Establ.) Urine Random Total Protein 307.4 mg/dL (Not Establ.) Urine Protein/Creatinine Ratio 1570 mg/g (0-200) Sodium Level 131 mmol/L (136-145) 129 mmol/L (136-145) Potassium Level 4.6 mmol/L (3.5-5.1) 5.7 mmol/L (3.5-5.1) Chloride Level 93 mmol/L (98-107) 91 mmol/L (98-107) Carbon Dioxide Level 21 mmol/L (21-32) 12 mmol/L (21-32) Anion Gap 17 (6-14) 26 (6-14) Blood Urea Nitrogen 43 mg/dL (7-20) 50 mg/dL (7-20) Creatinine 1.9 mg/dL (0.6-1.0) 2.4 mg/dL (0.6-1.0) Estimated GFR (Cockcroft-Gault) 35.6 27.2 Glucose Level 93 mg/dL (70-99) 56 mg/dL (70-99) Calcium Level 9.3 mg/dL (8.5-10.1) 9.8 mg/dL (8.5-10.1) White Blood Count 20.4 x10^3/uL (4.0-11.0) Red Blood Count 4.69 x10^6/uL (3.50-5.40) Hemoglobin 9.1 g/dL (12.0-15.5) Hematocrit 31.7 % (36.0-47.0) Mean Corpuscular Volume 68 fL (79-100) Mean Corpuscular Hemoglobin 19 pg (25-35) Mean Corpuscular Hemoglobin Concent 29 g/dL (31-37) Red Cell Distribution Width 25.1 % (11.5-14.5) Platelet Count 329 x10^3/uL (140-400) Neutrophils (%) (Auto) 82 % (31-73) Lymphocytes (%) (Auto) 11 % (24-48) Monocytes (%) (Auto) 7 % (0-9) Eosinophils (%) (Auto) 0 % (0-3) Basophils (%) (Auto) 0 % (0-3) Neutrophils # (Auto) 16.8 x10^3/uL (1.8-7.7) Lymphocytes # (Auto) 2.2 x10^3/uL (1.0-4.8) Monocytes # (Auto) 1.3 x10^3/uL (0.0-1.1) Eosinophils # (Auto) 0.0 x10^3/uL (0.0-0.7) Basophils # (Auto) 0.0 x10^3/uL (0.0-0.2) BUN/Creatinine Ratio 21 (6-20) Total Bilirubin 4.1 mg/dL (0.2-1.0) Aspartate Amino Transf (AST/SGOT) 103 U/L (15-37) Alanine Aminotransferase (ALT/SGPT) 65 U/L (14-59) Alkaline Phosphatase 144 U/L (46-116) Total Protein 7.6 g/dL (6.4-8.2) Albumin 3.1 g/dL (3.4-5.0) Albumin/Globulin Ratio 0.7 (1.0-1.7) Lactic Acid Level 16.0 mmol/L (0.4-2.0) Test 11/17/20 10:25 11/17/20 10:40 11/17/20 13:20 11/17/20 13:34 Prothrombin Time 42.5 SEC (11.7-14.0) Prothromb Time International Ratio 4.4 (0.8-1.1) Coronavirus (PCR) Not detected (Not Detected) SARS-CoV-2 Antigen (Rapid) Negative (NEGATIVE) White Blood Count 25.0 x10^3/uL (4.0-11.0) Red Blood Count 4.51 x10^6/uL (3.50-5.40) Hemoglobin 8.9 g/dL (12.0-15.5) Hematocrit 31.0 % (36.0-47.0) Mean Corpuscular Volume 69 fL (79-100) Mean Corpuscular Hemoglobin 20 pg (25-35) Mean Corpuscular Hemoglobin Concent 29 g/dL (31-37) Red Cell Distribution Width 26.0 % (11.5-14.5) Platelet Count 327 x10^3/uL (140-400) O2 Saturation 16 % (92-99) Arterial Blood pH 7.21 (7.35-7.45) Arterial Blood pCO2 at Patient Temp 26 mmHg (35-46) Arterial Blood pO2 at Patient Temp < 42 mmHg (75-108) Arterial Blood HCO3 10 mmol/L (21-28) Arterial Blood Base Excess -16 mmol/L (-3-3) Oxyhemoglobin 15.9 % Methemoglobin 2.3 % (0.0-1.9) Carbon Monoxide, Quantitative 0.3 % (0.0-1.9) FiO2 44% 6l nc Test 11/17/20 13:38 11/17/20 13:48 11/17/20 14:00 11/17/20 18:00 Lactic Acid Level 15.6 mmol/L (0.4-2.0) Sodium Level 130 mmol/L (136-145) Potassium Level 6.0 mmol/L (3.5-5.1) Chloride Level 90 mmol/L (98-107) Carbon Dioxide Level 14 mmol/L (21-32) Anion Gap 26 (6-14) Blood Urea Nitrogen 50 mg/dL (7-20) Creatinine 2.7 mg/dL (0.6-1.0) Estimated GFR (Cockcroft-Gault) 23.7 BUN/Creatinine Ratio 19 (6-20) Glucose Level 83 mg/dL (70-99) Calcium Level 9.1 mg/dL (8.5-10.1) Total Bilirubin 4.6 mg/dL (0.2-1.0) Aspartate Amino Transf (AST/SGOT) 108 U/L (15-37) Alanine Aminotransferase (ALT/SGPT) 66 U/L (14-59) Alkaline Phosphatase 144 U/L (46-116) Total Protein 7.0 g/dL (6.4-8.2) Albumin 3.1 g/dL (3.4-5.0) Albumin/Globulin Ratio 0.8 (1.0-1.7) Platelet Count 327 x10^3/uL (140-400) Prothrombin Time 42.2 SEC (11.7-14.0) Prothromb Time International Ratio 4.3 (0.8-1.1) Activated Partial Thromboplast Time 32 SEC (24-38) Fibrinogen 315 mg/dL (200-440) D-Dimer (Senia) 13.78 ug/mlFEU (0.00-0.50) Hemoglobin 8.4 g/dL (12.0-15.5) Hematocrit 30.0 % (36.0-47.0) Mean Corpuscular Hemoglobin Concent 28 g/dL (31-37) Test 11/18/20 00:01 11/18/20 04:30 11/18/20 06:30 Hemoglobin 9.0 g/dL (12.0-15.5) 8.5 g/dL (12.0-15.5) Hematocrit 31.9 % (36.0-47.0) 30.8 % (36.0-47.0) Mean Corpuscular Hemoglobin Concent 28 g/dL (31-37) 28 g/dL (31-37) White Blood Count 26.7 x10^3/uL (4.0-11.0) Red Blood Count 4.38 x10^6/uL (3.50-5.40) Mean Corpuscular Volume 70 fL (79-100) Mean Corpuscular Hemoglobin 20 pg (25-35) Red Cell Distribution Width 25.9 % (11.5-14.5) Platelet Count 243 x10^3/uL (140-400) Neutrophils (%) (Auto) 82 % (31-73) Lymphocytes (%) (Auto) 12 % (24-48) Monocytes (%) (Auto) 5 % (0-9) Eosinophils (%) (Auto) 0 % (0-3) Basophils (%) (Auto) 1 % (0-3) Neutrophils # (Auto) 22.0 x10^3/uL (1.8-7.7) Lymphocytes # (Auto) 3.3 x10^3/uL (1.0-4.8) Monocytes # (Auto) 1.3 x10^3/uL (0.0-1.1) Eosinophils # (Auto) 0.0 x10^3/uL (0.0-0.7) Basophils # (Auto) 0.1 x10^3/uL (0.0-0.2) Sodium Level 130 mmol/L (136-145) Potassium Level 5.2 mmol/L (3.5-5.1) Chloride Level 93 mmol/L (98-107) Carbon Dioxide Level 15 mmol/L (21-32) Anion Gap 22 (6-14) Blood Urea Nitrogen 55 mg/dL (7-20) Creatinine 3.0 mg/dL (0.6-1.0) Estimated GFR (Cockcroft-Gault) 21.0 Glucose Level 100 mg/dL (70-99) Calcium Level 8.6 mg/dL (8.5-10.1) Prothrombin Time 61.7 SEC (11.7-14.0) Prothromb Time International Ratio 6.9 (0.8-1.1) Total Bilirubin 4.5 mg/dL (0.2-1.0) Direct Bilirubin 3.6 mg/dL (0.0-0.2) Aspartate Amino Transf (AST/SGOT) 240 U/L (15-37) Alanine Aminotransferase (ALT/SGPT) 88 U/L (14-59) Alkaline Phosphatase 131 U/L (46-116) Total Protein 6.1 g/dL (6.4-8.2) Albumin 2.8 g/dL (3.4-5.0) Laboratory Tests Test 11/17/20 10:20 11/17/20 10:25 11/17/20 10:40 11/17/20 13:20 Lactic Acid Level 16.0 mmol/L (0.4-2.0) Prothrombin Time 42.5 SEC (11.7-14.0) Prothromb Time International Ratio 4.4 (0.8-1.1) Coronavirus (PCR) Not detected (Not Detected) SARS-CoV-2 Antigen (Rapid) Negative (NEGATIVE) White Blood Count 25.0 x10^3/uL (4.0-11.0) Red Blood Count 4.51 x10^6/uL (3.50-5.40) Hemoglobin 8.9 g/dL (12.0-15.5) Hematocrit 31.0 % (36.0-47.0) Mean Corpuscular Volume 69 fL (79-100) Mean Corpuscular Hemoglobin 20 pg (25-35) Mean Corpuscular Hemoglobin Concent 29 g/dL (31-37) Red Cell Distribution Width 26.0 % (11.5-14.5) Platelet Count 327 x10^3/uL (140-400) Test 11/17/20 13:34 11/17/20 13:38 11/17/20 13:48 11/17/20 14:00 O2 Saturation 16 % (92-99) Arterial Blood pH 7.21 (7.35-7.45) Arterial Blood pCO2 at Patient Temp 26 mmHg (35-46) Arterial Blood pO2 at Patient Temp < 42 mmHg (75-108) Arterial Blood HCO3 10 mmol/L (21-28) Arterial Blood Base Excess -16 mmol/L (-3-3) Oxyhemoglobin 15.9 % Methemoglobin 2.3 % (0.0-1.9) Carbon Monoxide, Quantitative 0.3 % (0.0-1.9) FiO2 44% 6l nc Lactic Acid Level 15.6 mmol/L (0.4-2.0) Sodium Level 130 mmol/L (136-145) Potassium Level 6.0 mmol/L (3.5-5.1) Chloride Level 90 mmol/L (98-107) Carbon Dioxide Level 14 mmol/L (21-32) Anion Gap 26 (6-14) Blood Urea Nitrogen 50 mg/dL (7-20) Creatinine 2.7 mg/dL (0.6-1.0) Estimated GFR (Cockcroft-Gault) 23.7 BUN/Creatinine Ratio 19 (6-20) Glucose Level 83 mg/dL (70-99) Calcium Level 9.1 mg/dL (8.5-10.1) Total Bilirubin 4.6 mg/dL (0.2-1.0) Aspartate Amino Transf (AST/SGOT) 108 U/L (15-37) Alanine Aminotransferase (ALT/SGPT) 66 U/L (14-59) Alkaline Phosphatase 144 U/L (46-116) Total Protein 7.0 g/dL (6.4-8.2) Albumin 3.1 g/dL (3.4-5.0) Albumin/Globulin Ratio 0.8 (1.0-1.7) Platelet Count 327 x10^3/uL (140-400) Prothrombin Time 42.2 SEC (11.7-14.0) Prothromb Time International Ratio 4.3 (0.8-1.1) Activated Partial Thromboplast Time 32 SEC (24-38) Fibrinogen 315 mg/dL (200-440) D-Dimer (Senia) 13.78 ug/mlFEU (0.00-0.50) Test 11/17/20 18:00 11/18/20 00:01 11/18/20 04:30 11/18/20 06:30 Hemoglobin 8.4 g/dL (12.0-15.5) 9.0 g/dL (12.0-15.5) 8.5 g/dL (12.0-15.5) Hematocrit 30.0 % (36.0-47.0) 31.9 % (36.0-47.0) 30.8 % (36.0-47.0) Mean Corpuscular Hemoglobin Concent 28 g/dL (31-37) 28 g/dL (31-37) 28 g/dL (31-37) White Blood Count 26.7 x10^3/uL (4.0-11.0) Red Blood Count 4.38 x10^6/uL (3.50-5.40) Mean Corpuscular Volume 70 fL (79-100) Mean Corpuscular Hemoglobin 20 pg (25-35) Red Cell Distribution Width 25.9 % (11.5-14.5) Platelet Count 243 x10^3/uL (140-400) Neutrophils (%) (Auto) 82 % (31-73) Lymphocytes (%) (Auto) 12 % (24-48) Monocytes (%) (Auto) 5 % (0-9) Eosinophils (%) (Auto) 0 % (0-3) Basophils (%) (Auto) 1 % (0-3) Neutrophils # (Auto) 22.0 x10^3/uL (1.8-7.7) Lymphocytes # (Auto) 3.3 x10^3/uL (1.0-4.8) Monocytes # (Auto) 1.3 x10^3/uL (0.0-1.1) Eosinophils # (Auto) 0.0 x10^3/uL (0.0-0.7) Basophils # (Auto) 0.1 x10^3/uL (0.0-0.2) Sodium Level 130 mmol/L (136-145) Potassium Level 5.2 mmol/L (3.5-5.1) Chloride Level 93 mmol/L (98-107) Carbon Dioxide Level 15 mmol/L (21-32) Anion Gap 22 (6-14) Blood Urea Nitrogen 55 mg/dL (7-20) Creatinine 3.0 mg/dL (0.6-1.0) Estimated GFR (Cockcroft-Gault) 21.0 Glucose Level 100 mg/dL (70-99) Calcium Level 8.6 mg/dL (8.5-10.1) Prothrombin Time 61.7 SEC (11.7-14.0) Prothromb Time International Ratio 6.9 (0.8-1.1) Total Bilirubin 4.5 mg/dL (0.2-1.0) Direct Bilirubin 3.6 mg/dL (0.0-0.2) Aspartate Amino Transf (AST/SGOT) 240 U/L (15-37) Alanine Aminotransferase (ALT/SGPT) 88 U/L (14-59) Alkaline Phosphatase 131 U/L (46-116) Total Protein 6.1 g/dL (6.4-8.2) Albumin 2.8 g/dL (3.4-5.0) Problem List Problems Medical Problems: (1) KENNETH (acute kidney injury) Status: Acute (2) Atrial fibrillation with RVR Status: Acute (3) CHF (congestive heart failure) Status: Acute (4) Hypoglycemia Status: Acute (5) Pneumonia Status: Acute Assessment/Plan nurse reports clots/blood from OG continued coagulopathy with IN R 6.9 ongoing metabolic abnormalities continue supportive care, ongoing work up/management no surgical plans Justicifation of Admission Dx: Justifications for Admission: Justification of Admission Dx: Yes CHF: Cardiac Arrhythmias SHRUTHI WALLS MD 11/18/20 1005: SURGICAL PROGRESS NOTE Assessment/Plan Patient's overall condition deteriorating. Continue metabolic abnormalities intubated and sedated at this time. Worsening coagulopathy. Abdomen is soft less distended OG tube in place. Agree with Olga assessment and plan SAM MAN APRN Nov 18, 2020 08:34 SHRUTHI WALLS MD Nov 18, 2020 10:05
[2020-11-18 08:39] LABS: HEMATOCRIT 29.9 % (36.0-47.0); HEMOGLOBIN 8.4 g/dL (12.0-15.5)
[2020-11-18] MEDS: CHLORHEXIDINE 0.12% 15 ML MOUTHWASH. MM SCH ×2 (09:00→21:25)
[2020-11-18] MEDS: FLUTICASONE 50MCG/NASAL SPRAY 16GM BOTTLE. NS SCH (09:00)
[2020-11-18] MEDS: CITALOPRAM 20 MG TABLET. PO SCH (09:00)
[2020-11-18] MEDS: GABAPENTIN 300 MG CAPSULE. PO SCH ×2 (09:00→21:00)
[2020-11-18] MEDS: THIAMINE 100 MG TABLET. PO SCH ×3 (09:00→21:00)
[2020-11-18] MEDS ORDERED: LIDOCAINE WITH 8.4% SOD BICARB 3 ML DISP.SYRIN. ONE (09:21)
--- NOTE | 2020-11-18 09:30 | NUR ---
Consent for temporary dialysis catheter and CRRT obtained from mother via phone.
--- NOTE | 2020-11-18 09:43 | PDOC ---
DATE OF SERVICE DATE: 11/18/20 TIME: 09:29 SUBJECTIVE ROS Intubated yesterday, was on 4 pressors, down to 2 now , decreased UOP, anuric now clots/blood from OG OBJECTIVE Vital Signs Vital Signs Date Time Temp Pulse Resp B/P (MAP) Pulse Ox O2 Delivery O2 Flow Rate FiO2 11/18/20 09:00 106 26 93/61 (72) 97 Ventilator 11/18/20 08:00 98.1 98.1 11/17/20 14:00 6.0 I & 0 Intake and Output 11/18/20 07:00 Intake Total 8161.5 ml Output Total 535 ml Balance 7626.5 ml Intake Oral 0 ml IV Total 8161.5 ml Output Urine Total 35 ml Gastric Drainage Total 500 ml PHYSICAL EXAM Physical Exam General: Intubated, sedated HEENT: OG, EG + Neck supple Lungs: diminished bases Heart: S1S2 Abdomen: Soft, Extremities: Trace Bilat LE edema + Neuro: sedated, intubated Sky + Skin No rash DIAGNOSIS/ASSESSMENT Assessment & Plan KENNETH - Oligoanuric now , ATN Declining UOP, Metab abnorm, will start CRRT this am CT scan- at presentation unremarkable Kidneys and bladder , No Micr hematuria, Overt Proteinuria +, No hx of NSAID's use per patient , No Hx of CKD (KENNETH last hosp - resolved ) Supportive care, Strict I/O, monitor HyperKalemia- was on PO KCL , dced, improved Abdominal pain POA - no surgery planned per Sepsis- elevated Lactic acid Metabolic acidosis POA- 2/2 Lactic acidosis, . IV Bicarb gtt, dc after bicarb improved with SIGN INSTALLER Elevated LFT's Acute respiratory failure - Moderate right and small left pleural effusion with hazy adjacent airspace disease may relate to pulmonary edema. Acute on chronic CHF exacerbation last echo in July 2020 showed EF of 60-65% and severely dilated right ventricle Valvular insufficiency: notable for moderate MR and mod to severe TR Hx of of open ASD closure: 2014. Stable per recent SAMMY Severe symptomatic hypoglycemia POA History of atrial fibrillation/atrial flutter Secondary cor pulmonale due to pulmonary hypertension Anemia of chronic disease- Fe def , Tsat 4, Defer to primary COMMENT/RELEVANT DATA Meds Current Medications Medications (Trade) Dose Ordered Sig/Kailey Start Time Stop Time Status Last Admin Dose Admin Acetaminophen (Tylenol) 650 mg PRN Q4HRS PRN 2/9/21 16:15 Albumin Human 500 ml @ 125 mls/hr 1X ONCE 11/17/20 15:15 11/17/20 19:14 DC 11/17/20 15:44 125 MLS/HR Albuterol/ Ipratropium (Duoneb) 3 ml RTQID 11/17/20 09:00 11/17/20 11:48 3 ML Amiodarone HCl (Cordarone) 200 mg DAILY 11/16/20 09:00 11/15/20 16:38 DC Aspirin (Tatianna Aspirin) 325 mg DAILY 11/16/20 09:00 11/15/20 16:38 DC Budesonide (Pulmicort) 0.5 mg RTBID 11/17/20 09:00 11/17/20 08:43 0.5 MG Calcium Carbonate/ Glycine (Tums) 1,000 mg PRN Q4HRS PRN 11/16/20 21:30 11/16/20 21:37 1,000 MG Calcium Gluconate 1000 mg/Sodium Chloride 110 ml @ 220 mls/hr 1X ONCE 11/17/20 17:15 11/17/20 17:44 DC 11/17/20 17:36 220 MLS/HR Cefepime HCl (Maxipime) 2 gm Q24H 11/15/20 17:00 11/17/20 11:51 DC 11/16/20 16:30 2 GM Chlorhexidine Gluconate (Peridex) 15 ml BID 11/17/20 21:00 11/17/20 22:09 15 ML Citalopram Hydrobromide (CeleXA) 40 mg DAILY 11/16/20 09:00 11/17/20 09:23 40 MG Daptomycin 390 mg/ Sodium Chloride 50 ml @ 100 mls/hr Q24H 11/17/20 13:00 11/17/20 14:22 100 MLS/HR Dextrose (Dextrose 50%-Water Syringe) 12.5 gm PRN Q15MIN PRN 11/15/20 16:15 Dextrose/Sodium Chloride 1,000 ml @ 50 mls/hr Q20H 11/15/20 16:00 11/17/20 09:28 50 MLS/HR Digoxin (Lanoxin) 500 mcg 1X ONCE 11/17/20 15:30 11/17/20 15:31 DC 11/17/20 15:43 500 MCG Docusate Sodium (Colace) 100 mg PRN DAILY PRN 11/15/20 16:15 Epinephrine HCl 10 mg/Sodium Chloride 250 ml @ 11.85 mls/ hr CONT PRN 11/17/20 17:30 11/17/20 22:09 47.4 MLS/HR Epinephrine HCl 5 mg/Sodium Chloride 255 ml @ 24.266 mls/ hr CONT PRN 11/17/20 14:45 11/17/20 20:00 DC 11/17/20 19:44 121.328 MLS/HR Etomidate (Amidate) 12 mg 1X ONCE 11/17/20 14:15 11/17/20 14:16 DC 11/17/20 14:15 12 MG Fentanyl Citrate (Fentanyl 2ml Vial) 50 mcg PRN Q1HR PRN 11/17/20 14:00 Fluticasone Propionate (Flonase) 2 spray DAILY 11/16/20 09:00 11/17/20 08:37 2 SPRAY Furosemide (Lasix) 40 mg 1X ONCE 11/16/20 14:00 11/16/20 14:01 DC 11/16/20 14:08 40 MG Gabapentin (Neurontin) 600 mg BID 11/15/20 21:00 11/17/20 09:23 600 MG Heparin Sodium (Porcine) (Heparin Sodium) 5,000 unit Q12HR 11/15/20 21:00 11/15/20 16:17 DC Hydrocortisone Sodium Succinate (Solu-CORTEF) 100 mg Q8HRS 11/17/20 22:00 11/18/20 06:17 100 MG Lidocaine HCl (Buffered Lidocaine 1%) 3 ml STK-MED ONCE 11/18/20 09:21 11/18/20 09:22 DC Lidocaine HCl (Xylocaine 2% Topical 5gm Tube) 5 makenna STK-MED ONCE 11/16/20 12:00 11/17/20 15:35 DC Lidocaine HCl (Xylocaine-Mpf 1% 2ml Vial) 2 ml 1X ONCE 11/17/20 12:00 11/17/20 12:07 DC Linezolid/Dextrose 300 ml @ 300 mls/hr Q12HR 11/17/20 18:00 11/17/20 18:42 300 MLS/HR Meropenem 500 mg/ Sodium Chloride 50 ml @ 100 mls/hr Q8HRS 11/17/20 12:30 11/18/20 06:17 100 MLS/HR Metoprolol Tartrate (Lopressor) 50 mg BID 11/16/20 09:15 11/17/20 12:56 DC 11/17/20 09:24 50 MG Metronidazole 100 ml @ 100 mls/hr Q12HR 11/15/20 21:00 11/17/20 11:51 DC 11/17/20 08:41 100 MLS/HR Micafungin Sodium 100 mg/Dextrose 100 ml @ 100 mls/hr Q24H 11/17/20 12:30 11/17/20 12:58 100 MLS/HR Midazolam HCl 100 ml @ 0 mls/hr CONT PRN 11/17/20 14:00 11/18/20 03:58 10 MLS/HR Morphine Sulfate (Morphine Sulfate) 4 mg PRN Q1HR PRN 11/17/20 14:00 Norepinephrine Bitartrate 32 mg/ Dextrose 250 ml @ 3.703 mls/ hr CONT PRN 11/17/20 13:30 11/18/20 03:50 14.813 MLS/HR Norepinephrine Bitartrate 8 mg/ Dextrose 258 ml @ 15.344 mls/ hr CONT PRN 11/17/20 11:15 11/17/20 14:30 DC 11/17/20 11:32 14.8 MLS/HR Ondansetron HCl (Zofran) 4 mg PRN Q6HRS PRN 11/15/20 16:15 Pantoprazole Sodium (PROTONIX VIAL for IV PUSH) 40 mg DAILYAC 11/18/20 07:30 11/18/20 07:52 40 MG Pantoprazole Sodium (Protonix) 40 mg DAILYAC 11/16/20 07:30 11/17/20 14:53 DC 11/17/20 08:36 40 MG Phenylephrine HCl 50 mg/Sodium Chloride 255 ml @ 12.133 mls/ hr CONT PRN 11/17/20 13:30 Piperacillin Sod/ Tazobactam Sod 3.375 gm/Sodium Chloride 50 ml @ 100 mls/hr 1X ONCE 11/15/20 13:00 11/15/20 13:29 DC 11/15/20 13:05 100 MLS/HR Potassium Chloride (Klor-Con) 60 meq 1X ONCE 11/16/20 14:00 11/16/20 14:01 DC 11/16/20 14:06 60 MEQ Ringer's Solution 1,000 ml @ 1,000 mls/hr Q1H ONCE 11/17/20 14:00 11/17/20 14:59 DC 11/17/20 15:45 1,000 MLS/HR Sennosides (Senna) 17.2 mg PRN BID PRN 11/15/20 16:15 Sodium Bicarbonate 150 meq/Dextrose 1,150 ml @ 125 mls/hr Q9H12M ONCE 11/17/20 11:30 11/17/20 20:41 DC 11/17/20 11:26 125 MLS/HR Sodium Bicarbonate (Sodium Bicarb Adult 8.4% Syr) 100 meq 1X ONCE 11/17/20 14:15 11/17/20 14:16 DC 11/17/20 14:15 100 MEQ Succinylcholine Chloride (Anectine) 100 mg 1X ONCE 11/17/20 14:15 11/17/20 14:16 DC 11/17/20 14:15 100 MG Thiamine Mononitrate (Vitamin B-1) 300 mg TID 11/17/20 14:00 Thiamine HCl 300 mg/Dextrose 53 ml @ 102 mls/hr Q8HRS 11/15/20 22:00 11/17/20 09:46 DC 11/17/20 06:17 102 MLS/HR Vancomycin HCl (Vanco Per Pharmacy) 1 each PRN DAILY PRN 11/15/20 16:15 11/16/20 11:05 DC Vancomycin HCl 2 gm/Sodium Chloride 500 ml @ 250 mls/hr 1X ONCE 11/15/20 13:00 11/15/20 14:59 DC 11/15/20 13:37 250 MLS/HR Vasopressin 20 unit/Dextrose 101 ml @ 12 mls/hr CONT PRN 11/17/20 13:30 UNV Vecuronium [place] (Norcuron Bolus) 6 mg PRN Q2HR PRN 11/17/20 20:00 11/17/20 22:11 6 MG Lab Laboratory Tests Test 11/17/20 10:20 11/17/20 10:25 11/17/20 10:40 11/17/20 13:20 Lactic Acid Level 16.0 mmol/L (0.4-2.0) Prothrombin Time 42.5 SEC (11.7-14.0) Prothromb Time International Ratio 4.4 (0.8-1.1) Coronavirus (PCR) Not detected (Not Detected) SARS-CoV-2 Antigen (Rapid) Negative (NEGATIVE) White Blood Count 25.0 x10^3/uL (4.0-11.0) Red Blood Count 4.51 x10^6/uL (3.50-5.40) Hemoglobin 8.9 g/dL (12.0-15.5) Hematocrit 31.0 % (36.0-47.0) Mean Corpuscular Volume 69 fL (79-100) Mean Corpuscular Hemoglobin 20 pg (25-35) Mean Corpuscular Hemoglobin Concent 29 g/dL (31-37) Red Cell Distribution Width 26.0 % (11.5-14.5) Platelet Count 327 x10^3/uL (140-400) Test 11/17/20 13:34 11/17/20 13:38 11/17/20 13:48 11/17/20 14:00 O2 Saturation 16 % (92-99) Arterial Blood pH 7.21 (7.35-7.45) Arterial Blood pCO2 at Patient Temp 26 mmHg (35-46) Arterial Blood pO2 at Patient Temp < 42 mmHg (75-108) Arterial Blood HCO3 10 mmol/L (21-28) Arterial Blood Base Excess -16 mmol/L (-3-3) Oxyhemoglobin 15.9 % Methemoglobin 2.3 % (0.0-1.9) Carbon Monoxide, Quantitative 0.3 % (0.0-1.9) FiO2 44% 6l nc Lactic Acid Level 15.6 mmol/L (0.4-2.0) Sodium Level 130 mmol/L (136-145) Potassium Level 6.0 mmol/L (3.5-5.1) Chloride Level 90 mmol/L (98-107) Carbon Dioxide Level 14 mmol/L (21-32) Anion Gap 26 (6-14) Blood Urea Nitrogen 50 mg/dL (7-20) Creatinine 2.7 mg/dL (0.6-1.0) Estimated GFR (Cockcroft-Gault) 23.7 BUN/Creatinine Ratio 19 (6-20) Glucose Level 83 mg/dL (70-99) Calcium Level 9.1 mg/dL (8.5-10.1) Total Bilirubin 4.6 mg/dL (0.2-1.0) Aspartate Amino Transf (AST/SGOT) 108 U/L (15-37) Alanine Aminotransferase (ALT/SGPT) 66 U/L (14-59) Alkaline Phosphatase 144 U/L (46-116) Total Protein 7.0 g/dL (6.4-8.2) Albumin 3.1 g/dL (3.4-5.0) Albumin/Globulin Ratio 0.8 (1.0-1.7) Platelet Count 327 x10^3/uL (140-400) Prothrombin Time 42.2 SEC (11.7-14.0) Prothromb Time International Ratio 4.3 (0.8-1.1) Activated Partial Thromboplast Time 32 SEC (24-38) Fibrinogen 315 mg/dL (200-440) D-Dimer (Senia) 13.78 ug/mlFEU (0.00-0.50) Test 11/17/20 18:00 11/18/20 00:01 11/18/20 04:30 11/18/20 06:30 Hemoglobin 8.4 g/dL (12.0-15.5) 9.0 g/dL (12.0-15.5) 8.5 g/dL (12.0-15.5) Hematocrit 30.0 % (36.0-47.0) 31.9 % (36.0-47.0) 30.8 % (36.0-47.0) Mean Corpuscular Hemoglobin Concent 28 g/dL (31-37) 28 g/dL (31-37) 28 g/dL (31-37) White Blood Count 26.7 x10^3/uL (4.0-11.0) Red Blood Count 4.38 x10^6/uL (3.50-5.40) Mean Corpuscular Volume 70 fL (79-100) Mean Corpuscular Hemoglobin 20 pg (25-35) Red Cell Distribution Width 25.9 % (11.5-14.5) Platelet Count 243 x10^3/uL (140-400) Neutrophils (%) (Auto) 82 % (31-73) Lymphocytes (%) (Auto) 12 % (24-48) Monocytes (%) (Auto) 5 % (0-9) Eosinophils (%) (Auto) 0 % (0-3) Basophils (%) (Auto) 1 % (0-3) Neutrophils # (Auto) 22.0 x10^3/uL (1.8-7.7) Lymphocytes # (Auto) 3.3 x10^3/uL (1.0-4.8) Monocytes # (Auto) 1.3 x10^3/uL (0.0-1.1) Eosinophils # (Auto) 0.0 x10^3/uL (0.0-0.7) Basophils # (Auto) 0.1 x10^3/uL (0.0-0.2) Sodium Level 130 mmol/L (136-145) Potassium Level 5.2 mmol/L (3.5-5.1) Chloride Level 93 mmol/L (98-107) Carbon Dioxide Level 15 mmol/L (21-32) Anion Gap 22 (6-14) Blood Urea Nitrogen 55 mg/dL (7-20) Creatinine 3.0 mg/dL (0.6-1.0) Estimated GFR (Cockcroft-Gault) 21.0 Glucose Level 100 mg/dL (70-99) Calcium Level 8.6 mg/dL (8.5-10.1) Prothrombin Time 61.7 SEC (11.7-14.0) Prothromb Time International Ratio 6.9 (0.8-1.1) Fibrinogen 226 mg/dL (200-440) Total Bilirubin 4.5 mg/dL (0.2-1.0) Direct Bilirubin 3.6 mg/dL (0.0-0.2) Aspartate Amino Transf (AST/SGOT) 240 U/L (15-37) Alanine Aminotransferase (ALT/SGPT) 88 U/L (14-59) Alkaline Phosphatase 131 U/L (46-116) Total Protein 6.1 g/dL (6.4-8.2) Albumin 2.8 g/dL (3.4-5.0) Test 11/18/20 07:35 Hemoglobin 8.4 g/dL (12.0-15.5) Hematocrit 29.9 % (36.0-47.0) Mean Corpuscular Hemoglobin Concent 28 g/dL (31-37) Results All relevant outside records, renal labs, imaging studies, telemetry/EKG's were reviewed. Justicifation of Admission Dx: Justifications for Admission: Justification of Admission Dx: Yes CHF: Cardiac Arrhythmias FRANCO SETHI MD Nov 18, 2020 09:43
[2020-11-18] MEDS ORDERED: LIDOCAINE WITH 8.4% SOD BICARB 3 ML DISP.SYRIN. INJ ONE (09:45)
--- NOTE | 2020-11-18 10:15 | NUR ---
Dr. Cleaning placed temporary dialysis catheter in her left IJ and a 4 tajik sheath in her right groin for arterial blood pressure monitoring.
--- NOTE | 2020-11-18 10:20 | PDOC ---
Date of Service: DATE: 11/18/20 TIME: 10:13 Objective: Objective: D/w surgery and ID. D/w nurse - down to two pressors from four, plans for CRRT, some ongoing OG output (dark - some clots in tube), blood clots when drawn, no stools. Hematology following. Vital Signs: Vital Signs Date Time Temp Pulse Resp B/P (MAP) Pulse Ox O2 Delivery O2 Flow Rate FiO2 11/18/20 09:00 106 26 93/61 (72) 97 Ventilator 11/18/20 08:00 98.1 98.1 11/17/20 14:00 6.0 Labs: Laboratory Tests Test 11/17/20 10:20 11/17/20 10:25 11/17/20 10:40 11/17/20 13:20 Lactic Acid Level 16.0 mmol/L Prothrombin Time 42.5 SEC Prothromb Time International Ratio 4.4 Coronavirus (PCR) Not detected SARS-CoV-2 Antigen (Rapid) Negative White Blood Count 25.0 x10^3/uL Red Blood Count 4.51 x10^6/uL Hemoglobin 8.9 g/dL Hematocrit 31.0 % Mean Corpuscular Volume 69 fL Mean Corpuscular Hemoglobin 20 pg Mean Corpuscular Hemoglobin Concent 29 g/dL Red Cell Distribution Width 26.0 % Platelet Count 327 x10^3/uL Test 11/17/20 13:34 11/17/20 13:38 11/17/20 13:48 11/17/20 14:00 O2 Saturation 16 % Arterial Blood pH 7.21 Arterial Blood pCO2 at Patient Temp 26 mmHg Arterial Blood pO2 at Patient Temp < 42 mmHg Arterial Blood HCO3 10 mmol/L Arterial Blood Base Excess -16 mmol/L Oxyhemoglobin 15.9 % Methemoglobin 2.3 % Carbon Monoxide, Quantitative 0.3 % FiO2 44% 6l nc Lactic Acid Level 15.6 mmol/L Sodium Level 130 mmol/L Potassium Level 6.0 mmol/L Chloride Level 90 mmol/L Carbon Dioxide Level 14 mmol/L Anion Gap 26 Blood Urea Nitrogen 50 mg/dL Creatinine 2.7 mg/dL Estimated GFR (Cockcroft-Gault) 23.7 BUN/Creatinine Ratio 19 Glucose Level 83 mg/dL Calcium Level 9.1 mg/dL Total Bilirubin 4.6 mg/dL Aspartate Amino Transf (AST/SGOT) 108 U/L Alanine Aminotransferase (ALT/SGPT) 66 U/L Alkaline Phosphatase 144 U/L Total Protein 7.0 g/dL Albumin 3.1 g/dL Albumin/Globulin Ratio 0.8 Platelet Count 327 x10^3/uL Prothrombin Time 42.2 SEC Prothromb Time International Ratio 4.3 Activated Partial Thromboplast Time 32 SEC Fibrinogen 315 mg/dL D-Dimer (Senia) 13.78 ug/mlFEU Test 11/17/20 18:00 11/18/20 00:01 11/18/20 04:30 11/18/20 06:30 Hemoglobin 8.4 g/dL 9.0 g/dL 8.5 g/dL Hematocrit 30.0 % 31.9 % 30.8 % Mean Corpuscular Hemoglobin Concent 28 g/dL 28 g/dL 28 g/dL White Blood Count 26.7 x10^3/uL Red Blood Count 4.38 x10^6/uL Mean Corpuscular Volume 70 fL Mean Corpuscular Hemoglobin 20 pg Red Cell Distribution Width 25.9 % Platelet Count 243 x10^3/uL Neutrophils (%) (Auto) 82 % Lymphocytes (%) (Auto) 12 % Monocytes (%) (Auto) 5 % Eosinophils (%) (Auto) 0 % Basophils (%) (Auto) 1 % Neutrophils # (Auto) 22.0 x10^3/uL Lymphocytes # (Auto) 3.3 x10^3/uL Monocytes # (Auto) 1.3 x10^3/uL Eosinophils # (Auto) 0.0 x10^3/uL Basophils # (Auto) 0.1 x10^3/uL Platelet Estimate Pending Sodium Level 130 mmol/L Potassium Level 5.2 mmol/L Chloride Level 93 mmol/L Carbon Dioxide Level 15 mmol/L Anion Gap 22 Blood Urea Nitrogen 55 mg/dL Creatinine 3.0 mg/dL Estimated GFR (Cockcroft-Gault) 21.0 Glucose Level 100 mg/dL Calcium Level 8.6 mg/dL Prothrombin Time 61.7 SEC Prothromb Time International Ratio 6.9 Fibrinogen 226 mg/dL Total Bilirubin 4.5 mg/dL Direct Bilirubin 3.6 mg/dL Aspartate Amino Transf (AST/SGOT) 240 U/L Alanine Aminotransferase (ALT/SGPT) 88 U/L Alkaline Phosphatase 131 U/L Total Protein 6.1 g/dL Albumin 2.8 g/dL Test 11/18/20 07:35 Hemoglobin 8.4 g/dL Hematocrit 29.9 % Mean Corpuscular Hemoglobin Concent 28 g/dL BLOOD CULTURE Preliminary NO GROWTH AFTER 2 DAYS Imaging: CXR 11/18 pending Echo 11/17 <Conclusion> The left ventricular systolic function is severely impaired. Estimated ejection fraction 15-20%. Flattening of interventricular septum consistent with RV volume/pressure overload. The right ventricle is severely dilated. Moderate biatrial dilation. Mild to moderate eccentric mitral regurgitation. Severe tricuspid regurgitation. Severe pulmonary hypertension with estimated PAP 75 mmHg. There is no evidence of significant pericardial effusion. PE: GEN: intubated LUNGS: vent/clear HEART: RRR ABD: soft, some distention, OG w/ dark output NEURO/PSYCH: sedated A/P: Resp failure, hypotension Lactic acidosis, COREEN, coagulopathy (worse), KENNETH (worse), elevated LFTs (stable) Abnormal CT - possible colitis (ascending colon) COVID negative 11/17 H/o ASD repair, CHF, A Fib - on amiodarone and Eliquis -- D/w Dr. Leon - MELD 43. Continue support, await hematology thoughts. Poor prognosis. Justicifation of Admission Dx: Justifications for Admission: Justification of Admission Dx: Yes CHF: Cardiac Arrhythmias EMILEE WRIGHT Nov 18, 2020 10:20
[2020-11-18 10:24] LABS: BASE EXCESS ABG -10 mmol/L (-3-3); HCO3 ABG 16 mmol/L (21-28); PCO2 ABG 31 mmHg (35-46); PO2 ABG 266 mmHg (75-108); SAT O2 ABG 100 % (92-99)
[2020-11-18 10:35] LABS: FIO2 ABG 100
[2020-11-18 10:59] LABS: HEMATOCRIT 28.2 % (36.0-47.0)
[2020-11-18 11:07] LABS: % BANDS 8 % (0-9); % LYMPHS 3 % (24-48); % MONOS 4 % (0-10); % SEGS 85 % (35-66); NUCLEATED RBC 1; PLT ESTIMATE ADEQUATE (ADEQUATE)
[2020-11-18 11:08] LABS: ANISOCYTOSIS MOD; BIZZARE CELLS FEW; OVALOCYTES FEW; POIKILOCYTOSIS PRESENT; TARGET CELLS OCC
[2020-11-18 11:09] LABS: POLYCHROMASIA SLIGHT
--- NOTE | 2020-11-18 11:10 | RAD ---
Single view of the chest. 11/18/2020 9:57 AM Indication: Reason: TEMPORARY DIALYSIS CATHETER PLACEMENT / Spl. Instructions: / History: Comparison: Chest radiograph, yesterday Findings: There is a new left internal jugular temporary dialysis catheter with tip at the proximal r ight atrium, well-positioned. Right internal jugular central line right upper extremity PICC line are stable. Infiltrates in the bilateral upper lungs have increased. There is a small increasing right p leural effusion. Cardiomegaly again noted. Endotracheal tube and enteric tube are unchanged. No acute osseous changes are seen. IMPRESSION: 1. New left internal jugular temporary dialysis catheter in acceptable position. Otherwise stable sup port lines and tubes 2. Increasing pulmonary infiltrates and small right pleural effusion Electronically signed by: Zeke Cleaning MD (11/18/2020 11:08 AM) [id number]
[2020-11-18 11:11] LABS: MICROCYTOSIS PRESENT
[2020-11-18 11:15] LABS: ACANTHOCYTES FEW
--- NOTE | 2020-11-18 11:23 | PDOC ---
[facility] 11/18/20 1123: CARDIO Progress Notes Date and Time Date of Service 11/18/2020 Time of Evaluation 1115 Subjective Subjective: Other (intubated) Vitals Vitals Vital Signs Date Time Temp Pulse Resp B/P (MAP) Pulse Ox O2 Delivery O2 Flow Rate FiO2 11/18/20 11:00 99 26 121/61 (81) 99 Ventilator 11/18/20 10:00 98.1 98.1 11/17/20 14:00 6.0 Weight Weight [ ] Input and Output Intake and Output Intake and Output 11/18/20 07:00 Intake Total 8161.5 ml Output Total 535 ml Balance 7626.5 ml Intake Oral 0 ml IV Total 8161.5 ml Output Urine Total 35 ml Gastric Drainage Total 500 ml Laboratory Labs Laboratory Tests Test 11/17/20 13:20 11/17/20 13:34 11/17/20 13:38 11/17/20 13:48 White Blood Count 25.0 x10^3/uL (4.0-11.0) Red Blood Count 4.51 x10^6/uL (3.50-5.40) Hemoglobin 8.9 g/dL (12.0-15.5) Hematocrit 31.0 % (36.0-47.0) Mean Corpuscular Volume 69 fL (79-100) Mean Corpuscular Hemoglobin 20 pg (25-35) Mean Corpuscular Hemoglobin Concent 29 g/dL (31-37) Red Cell Distribution Width 26.0 % (11.5-14.5) Platelet Count 327 x10^3/uL (140-400) O2 Saturation 16 % (92-99) Arterial Blood pH 7.21 (7.35-7.45) Arterial Blood pCO2 at Patient Temp 26 mmHg (35-46) Arterial Blood pO2 at Patient Temp < 42 mmHg (75-108) Arterial Blood HCO3 10 mmol/L (21-28) Arterial Blood Base Excess -16 mmol/L (-3-3) Oxyhemoglobin 15.9 % Methemoglobin 2.3 % (0.0-1.9) Carbon Monoxide, Quantitative 0.3 % (0.0-1.9) FiO2 44% 6l nc Lactic Acid Level 15.6 mmol/L (0.4-2.0) Sodium Level 130 mmol/L (136-145) Potassium Level 6.0 mmol/L (3.5-5.1) Chloride Level 90 mmol/L (98-107) Carbon Dioxide Level 14 mmol/L (21-32) Anion Gap 26 (6-14) Blood Urea Nitrogen 50 mg/dL (7-20) Creatinine 2.7 mg/dL (0.6-1.0) Estimated GFR (Cockcroft-Gault) 23.7 BUN/Creatinine Ratio 19 (6-20) Glucose Level 83 mg/dL (70-99) Calcium Level 9.1 mg/dL (8.5-10.1) Total Bilirubin 4.6 mg/dL (0.2-1.0) Aspartate Amino Transf (AST/SGOT) 108 U/L (15-37) Alanine Aminotransferase (ALT/SGPT) 66 U/L (14-59) Alkaline Phosphatase 144 U/L (46-116) Total Protein 7.0 g/dL (6.4-8.2) Albumin 3.1 g/dL (3.4-5.0) Albumin/Globulin Ratio 0.8 (1.0-1.7) Test 11/17/20 14:00 11/17/20 18:00 11/18/20 00:01 11/18/20 04:30 Platelet Count 327 x10^3/uL (140-400) 243 x10^3/uL (140-400) Prothrombin Time 42.2 SEC (11.7-14.0) Prothromb Time International Ratio 4.3 (0.8-1.1) Activated Partial Thromboplast Time 32 SEC (24-38) Fibrinogen 315 mg/dL (200-440) D-Dimer (Senia) 13.78 ug/mlFEU (0.00-0.50) Hemoglobin 8.4 g/dL (12.0-15.5) 9.0 g/dL (12.0-15.5) 8.5 g/dL (12.0-15.5) Hematocrit 30.0 % (36.0-47.0) 31.9 % (36.0-47.0) 30.8 % (36.0-47.0) Mean Corpuscular Hemoglobin Concent 28 g/dL (31-37) 28 g/dL (31-37) 28 g/dL (31-37) White Blood Count 26.7 x10^3/uL (4.0-11.0) Red Blood Count 4.38 x10^6/uL (3.50-5.40) Mean Corpuscular Volume 70 fL (79-100) Mean Corpuscular Hemoglobin 20 pg (25-35) Red Cell Distribution Width 25.9 % (11.5-14.5) Neutrophils (%) (Auto) 82 % (31-73) Lymphocytes (%) (Auto) 12 % (24-48) Monocytes (%) (Auto) 5 % (0-9) Eosinophils (%) (Auto) 0 % (0-3) Basophils (%) (Auto) 1 % (0-3) Neutrophils # (Auto) 22.0 x10^3/uL (1.8-7.7) Lymphocytes # (Auto) 3.3 x10^3/uL (1.0-4.8) Monocytes # (Auto) 1.3 x10^3/uL (0.0-1.1) Eosinophils # (Auto) 0.0 x10^3/uL (0.0-0.7) Basophils # (Auto) 0.1 x10^3/uL (0.0-0.2) Segmented Neutrophils % 85 % (35-66) Band Neutrophils % 8 % (0-9) Lymphocytes % 3 % (24-48) Monocytes % 4 % (0-10) Nucleated Red Blood Cells 1 Platelet Estimate Adequate (ADEQUATE) Polychromasia Slight Poikilocytosis Present Anisocytosis Mod Microcytosis Present Target Cells Occ Ovalocytes Few Иван Cells Acanthocytes Few RBC Morphology Bizarre Forms Few Sodium Level 130 mmol/L (136-145) Potassium Level 5.2 mmol/L (3.5-5.1) Chloride Level 93 mmol/L (98-107) Carbon Dioxide Level 15 mmol/L (21-32) Anion Gap 22 (6-14) Blood Urea Nitrogen 55 mg/dL (7-20) Creatinine 3.0 mg/dL (0.6-1.0) Estimated GFR (Cockcroft-Gault) 21.0 Glucose Level 100 mg/dL (70-99) Calcium Level 8.6 mg/dL (8.5-10.1) Test 11/18/20 06:30 11/18/20 07:35 11/18/20 10:20 11/18/20 10:50 Prothrombin Time 61.7 SEC (11.7-14.0) Prothromb Time International Ratio 6.9 (0.8-1.1) Fibrinogen 226 mg/dL (200-440) Total Bilirubin 4.5 mg/dL (0.2-1.0) Direct Bilirubin 3.6 mg/dL (0.0-0.2) Aspartate Amino Transf (AST/SGOT) 240 U/L (15-37) Alanine Aminotransferase (ALT/SGPT) 88 U/L (14-59) Alkaline Phosphatase 131 U/L (46-116) Total Protein 6.1 g/dL (6.4-8.2) Albumin 2.8 g/dL (3.4-5.0) Hemoglobin 8.4 g/dL (12.0-15.5) 8.0 g/dL (12.0-15.5) Hematocrit 29.9 % (36.0-47.0) 28.2 % (36.0-47.0) Mean Corpuscular Hemoglobin Concent 28 g/dL (31-37) 29 g/dL (31-37) O2 Saturation 100 % (92-99) Arterial Blood pH 7.32 (7.35-7.45) Arterial Blood pCO2 at Patient Temp 31 mmHg (35-46) Arterial Blood pO2 at Patient Temp 266 mmHg (75-108) Arterial Blood HCO3 16 mmol/L (21-28) Arterial Blood Base Excess -10 mmol/L (-3-3) FiO2 100 Microbiology Micro Microbiology 11/15/20 Urine Culture - Final, Complete 11/15/20 Blood Culture - Preliminary, Resulted NO GROWTH AFTER 2 DAYS Physical Exam HEENT: Neck Supple W Full Motion Chest: Symmetric LUNGS: Other (diminished , intubated, vent) Heart: irregularly irregular (AF-flutter rate mildly elevated ) Abdomen: Other (anasarca) Extremities: Other (anasarca) Neurology: other (sedation) Assessment Assessment 1. Acute on chronic systolic/diastolic CHF 2. AFIB/flutter: 90-110, notable for biatrial dilation. was on eliquis 3. Acute respiratory failure with a/c CHF, possible PNA, cor pulmonale: intubated with vent 4. Valvular insufficiency: notable for moderate MR and mod to severe TR 5. H/o ASD s/p surgical closure: 2015. Stable per recent SAMMY 6. Severe KENNETH 7. Anemia: multifactorial. possible UGI erosions. Hgb 8 8. Transaminitis, coagulopathy; INR initially 6.9 9. Severe cardiomyopathy: 15-20% 10. Cardiohepatorenal syndrome: contributor to above issues 11. Hypertension: still needing pressors. BP better 12. Hypoglycemia, profound improved 13. Lactic acidosis 14. Abdominal pain; CT with possible colitis 15. Marijuana use: unclear for any laced product such as BDF Recommendations 1. Continue pressor support 2. CRRT to start 3. Consult hematology 4. Dig PRN 5. No ASA, OAC at this time with anemia, coagulopathy 6. Hold Amiodarone 6. Empiric antibiotics 7. Consider L/RHC when more stable 8. Will consider for inotropic support. Justicifation of Admission Dx: Justifications for Admission: Justification of Admission Dx: Yes CHF: Cardiac Arrhythmias SAAD YAN MD 11/18/202034: CARDIO Progress Notes Assessment Assessment Patient seen and examined. Agree with [employer]'s assessment and plan. Acute respiratory failure probably secondary to combination of pneumonia and acute on chronic systolic HF/cor pulmonale s/p intubation, pulm following 2D echo showed EF 15-20%, severe TR and severe pulm HTN Severe sepsis, needing pressor support, antibiotics per ID team AF rate better controlled. Eliquis and amiodarone held secondary to coagulopathy and transaminitis Plan for initiation of CRRT by nephrology team. MARI VIVAS APRN Nov 18, 2020 11:23 SAAD YAN MD Nov 18, 2020 20:35
--- NOTE | 2020-11-18 11:56 | PDOC ---
Infectious Disease Note Subjective: Subjective Patient intubated /sedated Requiring pressure support, currently down to 2 pressors from 4 pressors Awaiting CRRT On Caridadrachael barron Discussed with RN Vital Signs: Vital Signs Vital Signs Date Time Temp Pulse Resp B/P (MAP) Pulse Ox O2 Delivery O2 Flow Rate FiO2 11/18/20 11:00 99 26 121/61 (81) 99 Ventilator 11/18/20 10:00 98.1 98.1 11/17/20 14:00 6.0 Physical Exam: PHYSICAL EXAM GENERAL: Intubated/sedated HEENT ETT/OGT tube present Neck Right IJ, left HDC, clean LUNGS: Bibasilar Rales HEART: Irregular. ABDOMEN: Mildly distended hypoactive bowel sounds EXTREMITIES: edema bilaterally. NEUROLOGIC: Intubated right femoral arterial line present DERM mottled skin Medications: Inpatient Meds: Medications reviewed. Labs: Lab Laboratory Tests Test 11/17/20 13:20 11/17/20 13:34 11/17/20 13:38 11/17/20 13:48 White Blood Count 25.0 x10^3/uL (4.0-11.0) Red Blood Count 4.51 x10^6/uL (3.50-5.40) Hemoglobin 8.9 g/dL (12.0-15.5) Hematocrit 31.0 % (36.0-47.0) Mean Corpuscular Volume 69 fL (79-100) Mean Corpuscular Hemoglobin 20 pg (25-35) Mean Corpuscular Hemoglobin Concent 29 g/dL (31-37) Red Cell Distribution Width 26.0 % (11.5-14.5) Platelet Count 327 x10^3/uL (140-400) O2 Saturation 16 % (92-99) Arterial Blood pH 7.21 (7.35-7.45) Arterial Blood pCO2 at Patient Temp 26 mmHg (35-46) Arterial Blood pO2 at Patient Temp < 42 mmHg (75-108) Arterial Blood HCO3 10 mmol/L (21-28) Arterial Blood Base Excess -16 mmol/L (-3-3) Oxyhemoglobin 15.9 % Methemoglobin 2.3 % (0.0-1.9) Carbon Monoxide, Quantitative 0.3 % (0.0-1.9) FiO2 44% 6l nc Lactic Acid Level 15.6 mmol/L (0.4-2.0) Sodium Level 130 mmol/L (136-145) Potassium Level 6.0 mmol/L (3.5-5.1) Chloride Level 90 mmol/L (98-107) Carbon Dioxide Level 14 mmol/L (21-32) Anion Gap 26 (6-14) Blood Urea Nitrogen 50 mg/dL (7-20) Creatinine 2.7 mg/dL (0.6-1.0) Estimated GFR (Cockcroft-Gault) 23.7 BUN/Creatinine Ratio 19 (6-20) Glucose Level 83 mg/dL (70-99) Calcium Level 9.1 mg/dL (8.5-10.1) Total Bilirubin 4.6 mg/dL (0.2-1.0) Aspartate Amino Transf (AST/SGOT) 108 U/L (15-37) Alanine Aminotransferase (ALT/SGPT) 66 U/L (14-59) Alkaline Phosphatase 144 U/L (46-116) Total Protein 7.0 g/dL (6.4-8.2) Albumin 3.1 g/dL (3.4-5.0) Albumin/Globulin Ratio 0.8 (1.0-1.7) Test 11/17/20 14:00 11/17/20 18:00 11/18/20 00:01 11/18/20 04:30 Platelet Count 327 x10^3/uL (140-400) 243 x10^3/uL (140-400) Prothrombin Time 42.2 SEC (11.7-14.0) Prothromb Time International Ratio 4.3 (0.8-1.1) Activated Partial Thromboplast Time 32 SEC (24-38) Fibrinogen 315 mg/dL (200-440) D-Dimer (Senia) 13.78 ug/mlFEU (0.00-0.50) Hemoglobin 8.4 g/dL (12.0-15.5) 9.0 g/dL (12.0-15.5) 8.5 g/dL (12.0-15.5) Hematocrit 30.0 % (36.0-47.0) 31.9 % (36.0-47.0) 30.8 % (36.0-47.0) Mean Corpuscular Hemoglobin Concent 28 g/dL (31-37) 28 g/dL (31-37) 28 g/dL (31-37) White Blood Count 26.7 x10^3/uL (4.0-11.0) Red Blood Count 4.38 x10^6/uL (3.50-5.40) Mean Corpuscular Volume 70 fL (79-100) Mean Corpuscular Hemoglobin 20 pg (25-35) Red Cell Distribution Width 25.9 % (11.5-14.5) Neutrophils (%) (Auto) 82 % (31-73) Lymphocytes (%) (Auto) 12 % (24-48) Monocytes (%) (Auto) 5 % (0-9) Eosinophils (%) (Auto) 0 % (0-3) Basophils (%) (Auto) 1 % (0-3) Neutrophils # (Auto) 22.0 x10^3/uL (1.8-7.7) Lymphocytes # (Auto) 3.3 x10^3/uL (1.0-4.8) Monocytes # (Auto) 1.3 x10^3/uL (0.0-1.1) Eosinophils # (Auto) 0.0 x10^3/uL (0.0-0.7) Basophils # (Auto) 0.1 x10^3/uL (0.0-0.2) Segmented Neutrophils % 85 % (35-66) Band Neutrophils % 8 % (0-9) Lymphocytes % 3 % (24-48) Monocytes % 4 % (0-10) Nucleated Red Blood Cells 1 Platelet Estimate Adequate (ADEQUATE) Polychromasia Slight Poikilocytosis Present Anisocytosis Mod Microcytosis Present Target Cells Occ Ovalocytes Few [place] Cells Acanthocytes Few RBC Morphology Bizarre Forms Few Sodium Level 130 mmol/L (136-145) Potassium Level 5.2 mmol/L (3.5-5.1) Chloride Level 93 mmol/L (98-107) Carbon Dioxide Level 15 mmol/L (21-32) Anion Gap 22 (6-14) Blood Urea Nitrogen 55 mg/dL (7-20) Creatinine 3.0 mg/dL (0.6-1.0) Estimated GFR (Cockcroft-Gault) 21.0 Glucose Level 100 mg/dL (70-99) Calcium Level 8.6 mg/dL (8.5-10.1) Test 11/18/20 06:30 11/18/20 07:35 11/18/20 10:20 11/18/20 10:50 Prothrombin Time 61.7 SEC (11.7-14.0) Prothromb Time International Ratio 6.9 (0.8-1.1) Fibrinogen 226 mg/dL (200-440) Total Bilirubin 4.5 mg/dL (0.2-1.0) Direct Bilirubin 3.6 mg/dL (0.0-0.2) Aspartate Amino Transf (AST/SGOT) 240 U/L (15-37) Alanine Aminotransferase (ALT/SGPT) 88 U/L (14-59) Alkaline Phosphatase 131 U/L (46-116) Total Protein 6.1 g/dL (6.4-8.2) Albumin 2.8 g/dL (3.4-5.0) Hemoglobin 8.4 g/dL (12.0-15.5) 8.0 g/dL (12.0-15.5) Hematocrit 29.9 % (36.0-47.0) 28.2 % (36.0-47.0) Mean Corpuscular Hemoglobin Concent 28 g/dL (31-37) 29 g/dL (31-37) O2 Saturation 100 % (92-99) Arterial Blood pH 7.32 (7.35-7.45) Arterial Blood pCO2 at Patient Temp 31 mmHg (35-46) Arterial Blood pO2 at Patient Temp 266 mmHg (75-108) Arterial Blood HCO3 16 mmol/L (21-28) Arterial Blood Base Excess -10 mmol/L (-3-3) FiO2 100 Objective: Assessment: Patient currently in multiorgan failure 1. Severe sepsis, etiology appears likely GI 2. Leukocytosis and lactic acidosis. Source appears GI,? ischemic colitis 3. Acute kidney injury with severe metabolic acidosis. 4. Abdominal pain, intermittent nausea.Colitis on CT abdomen, ischemic colitis 5. Atrial fibrillation/flutter. 6. Acute on chronic congestive heart failure. 7. Coagulopathy. 8. Abnormal liver function tests 9. Acute respiratory failure status post intubation 10. Pulmonary hypertension. 11. Valvular insufficiency. MR 12. History of PFO closure. COVID-19 negative Plan: Plan of Care Continue Dapto, Merrem, micafungin and Zyvox General surgery evaluating patient Hematology assisting with coagulopathy Monitor labs and cultures. Continue supportive care. Critically ill Prognosis very poor Discussed with nursing staff MEGAN MEHTA MD Nov 18, 2020 11:56
[2020-11-18] MEDS: POTASSIUM CHLORIDE 15 MEQ in DIALYSIS SOLUTION BGK 0/2.5 5,000 ML IV SCH ×7 (12:03→21:01)
[2020-11-18] MEDS: MICAFUNGIN 100 MG in IV DEXTROSE 5% 100ML 100 ML IV SCH (12:05)
--- NOTE | 2020-11-18 12:32 | PDOC ---
[facility] PROGRESS NOTE Date of Service DOS: DATE: 11/18/20 TIME: 12:28 Chief Complaint Chief Complaint Multifactorial respiratory failure with severe heart failure (15% ejection fraction but was 60% just a few months ago) Status post intubation yesterday Sepsis Colitis Severe lactic acidosis Pneumonia Lactic acidosis Severe symptomatic hypoglycemia KENNETH due to vasomotor nephropathy Acute volume overload Coagulopathy History of atrial fibrillation/atrial flutter Secondary cor pulmonale due to pulmonary hypertension Anemia of chronic disease History of Present Illness History of Present Illness 11/18/2020 Patient seen and examined in the ICU She is now intubated Ejection fraction noted to be 15% She is extremely critically ill volume overloaded desatting to 78% despite being on 80% FiO2 on the vent Her mom is present I spent quite a bit of time discussing the case with her and escorted her to the [facility] where she wants to pray Discussed with RN Discussed with case management Chart reviewed Patient is on assist-control/26/400/80 percent FiO2 with 8 of PEEP We are considering starting CRRT this afternoon She is sedated with Versed fentanyl and Also has Levophed and vasopressin running On IV Zyvox Extremely critically ill 11/16/2020 Patient seen and examined in the ICU CT abdomen reviewed looks like she has some possible colitis Lactic acid has decreased from 22 down to 8 Discussed with RN Discussed with case management Chart reviewed Vitals/I&O Vitals/I&O: Vital Signs Date Time Temp Pulse Resp B/P (MAP) Pulse Ox O2 Delivery O2 Flow Rate FiO2 11/18/20 12:00 98.1 103 26 117/62 (80) 97 Ventilator 98.1 11/17/20 14:00 6.0 I & O 11/17/20 11/17/20 11/18/20 15:00 23:00 07:00 Intake Total 150 ml 3878.9 ml 4132.6 ml Output Total 515 ml 20 ml Balance 150 ml 3363.9 ml 4112.6 ml Physical Exam Physical Exam: GENERAL: Intubated LUNGS: Bibasilar Rales HEART: Irregular. ABDOMEN: Mildly distended hypoactive bowel sounds EXTREMITIES: edema bilaterally. NEUROLOGIC: Intubated General: No acute distress, Other (sedated ) Heart: Other (afib) Lungs: Clear Abdomen: Soft, Other (less distended) Extremities: No clubbing, No cyanosis Skin: No rashes, No breakdown Labs Labs: Laboratory Tests Test 11/17/20 13:20 11/17/20 13:34 11/17/20 13:38 11/17/20 13:48 White Blood Count 25.0 x10^3/uL (4.0-11.0) Red Blood Count 4.51 x10^6/uL (3.50-5.40) Hemoglobin 8.9 g/dL (12.0-15.5) Hematocrit 31.0 % (36.0-47.0) Mean Corpuscular Volume 69 fL (79-100) Mean Corpuscular Hemoglobin 20 pg (25-35) Mean Corpuscular Hemoglobin Concent 29 g/dL (31-37) Red Cell Distribution Width 26.0 % (11.5-14.5) Platelet Count 327 x10^3/uL (140-400) O2 Saturation 16 % (92-99) Arterial Blood pH 7.21 (7.35-7.45) Arterial Blood pCO2 at Patient Temp 26 mmHg (35-46) Arterial Blood pO2 at Patient Temp < 42 mmHg (75-108) Arterial Blood HCO3 10 mmol/L (21-28) Arterial Blood Base Excess -16 mmol/L (-3-3) Oxyhemoglobin 15.9 % Methemoglobin 2.3 % (0.0-1.9) Carbon Monoxide, Quantitative 0.3 % (0.0-1.9) FiO2 44% 6l nc Lactic Acid Level 15.6 mmol/L (0.4-2.0) Sodium Level 130 mmol/L (136-145) Potassium Level 6.0 mmol/L (3.5-5.1) Chloride Level 90 mmol/L (98-107) Carbon Dioxide Level 14 mmol/L (21-32) Anion Gap 26 (6-14) Blood Urea Nitrogen 50 mg/dL (7-20) Creatinine 2.7 mg/dL (0.6-1.0) Estimated GFR (Cockcroft-Gault) 23.7 BUN/Creatinine Ratio 19 (6-20) Glucose Level 83 mg/dL (70-99) Calcium Level 9.1 mg/dL (8.5-10.1) Total Bilirubin 4.6 mg/dL (0.2-1.0) Aspartate Amino Transf (AST/SGOT) 108 U/L (15-37) Alanine Aminotransferase (ALT/SGPT) 66 U/L (14-59) Alkaline Phosphatase 144 U/L (46-116) Total Protein 7.0 g/dL (6.4-8.2) Albumin 3.1 g/dL (3.4-5.0) Albumin/Globulin Ratio 0.8 (1.0-1.7) Test 11/17/20 14:00 11/17/20 18:00 11/18/20 00:01 11/18/20 04:30 Platelet Count 327 x10^3/uL (140-400) 243 x10^3/uL (140-400) Prothrombin Time 42.2 SEC (11.7-14.0) Prothromb Time International Ratio 4.3 (0.8-1.1) Activated Partial Thromboplast Time 32 SEC (24-38) Fibrinogen 315 mg/dL (200-440) D-Dimer (Senia) 13.78 ug/mlFEU (0.00-0.50) Hemoglobin 8.4 g/dL (12.0-15.5) 9.0 g/dL (12.0-15.5) 8.5 g/dL (12.0-15.5) Hematocrit 30.0 % (36.0-47.0) 31.9 % (36.0-47.0) 30.8 % (36.0-47.0) Mean Corpuscular Hemoglobin Concent 28 g/dL (31-37) 28 g/dL (31-37) 28 g/dL (31-37) White Blood Count 26.7 x10^3/uL (4.0-11.0) Red Blood Count 4.38 x10^6/uL (3.50-5.40) Mean Corpuscular Volume 70 fL (79-100) Mean Corpuscular Hemoglobin 20 pg (25-35) Red Cell Distribution Width 25.9 % (11.5-14.5) Neutrophils (%) (Auto) 82 % (31-73) Lymphocytes (%) (Auto) 12 % (24-48) Monocytes (%) (Auto) 5 % (0-9) Eosinophils (%) (Auto) 0 % (0-3) Basophils (%) (Auto) 1 % (0-3) Neutrophils # (Auto) 22.0 x10^3/uL (1.8-7.7) Lymphocytes # (Auto) 3.3 x10^3/uL (1.0-4.8) Monocytes # (Auto) 1.3 x10^3/uL (0.0-1.1) Eosinophils # (Auto) 0.0 x10^3/uL (0.0-0.7) Basophils # (Auto) 0.1 x10^3/uL (0.0-0.2) Segmented Neutrophils % 85 % (35-66) Band Neutrophils % 8 % (0-9) Lymphocytes % 3 % (24-48) Monocytes % 4 % (0-10) Nucleated Red Blood Cells 1 Platelet Estimate Adequate (ADEQUATE) Polychromasia Slight Poikilocytosis Present Anisocytosis Mod Microcytosis Present Target Cells Occ Ovalocytes Few [place] Cells Acanthocytes Few RBC Morphology Bizarre Forms Few Sodium Level 130 mmol/L (136-145) Potassium Level 5.2 mmol/L (3.5-5.1) Chloride Level 93 mmol/L (98-107) Carbon Dioxide Level 15 mmol/L (21-32) Anion Gap 22 (6-14) Blood Urea Nitrogen 55 mg/dL (7-20) Creatinine 3.0 mg/dL (0.6-1.0) Estimated GFR (Cockcroft-Gault) 21.0 Glucose Level 100 mg/dL (70-99) Calcium Level 8.6 mg/dL (8.5-10.1) Test 11/18/20 06:30 11/18/20 07:35 11/18/20 10:20 11/18/20 10:50 Prothrombin Time 61.7 SEC (11.7-14.0) Prothromb Time International Ratio 6.9 (0.8-1.1) Fibrinogen 226 mg/dL (200-440) Total Bilirubin 4.5 mg/dL (0.2-1.0) Direct Bilirubin 3.6 mg/dL (0.0-0.2) Aspartate Amino Transf (AST/SGOT) 240 U/L (15-37) Alanine Aminotransferase (ALT/SGPT) 88 U/L (14-59) Alkaline Phosphatase 131 U/L (46-116) Total Protein 6.1 g/dL (6.4-8.2) Albumin 2.8 g/dL (3.4-5.0) Hemoglobin 8.4 g/dL (12.0-15.5) 8.0 g/dL (12.0-15.5) Hematocrit 29.9 % (36.0-47.0) 28.2 % (36.0-47.0) Mean Corpuscular Hemoglobin Concent 28 g/dL (31-37) 29 g/dL (31-37) O2 Saturation 100 % (92-99) Arterial Blood pH 7.32 (7.35-7.45) Arterial Blood pCO2 at Patient Temp 31 mmHg (35-46) Arterial Blood pO2 at Patient Temp 266 mmHg (75-108) Arterial Blood HCO3 16 mmol/L (21-28) Arterial Blood Base Excess -10 mmol/L (-3-3) FiO2 100 Assessment and Plan Assessmemt and Plan Problems Medical Problems: (1) KENNETH (acute kidney injury) Status: Acute (2) Atrial fibrillation with RVR Status: Acute (3) CHF (congestive heart failure) Status: Acute (4) Hypoglycemia Status: Acute (5) Pneumonia Status: Acute Multifactorial respiratory failure with severe heart failure (15% ejection fraction but was 60% just a few months ago) Status post intubation yesterday Sepsis Colitis Severe lactic acidosis Pneumonia Lactic acidosis Severe symptomatic hypoglycemia KENNETH due to vasomotor nephropathy Acute volume overload Coagulopathy History of atrial fibrillation/atrial flutter Secondary cor pulmonale due to pulmonary hypertension Anemia of chronic disease Plan ICU monitoring Starting CRRT this afternoon Vent weaning IV antibiotics Trend labs 7 consults are on board appreciate their input Strict I's and O's Sky to bedside drainage Diurese Continue telemetry monitoring for atrial fibrillation Continue amiodarone Continue IV empiric antibiotics Heparin for DVT prophylaxis Protonix for GI prophylaxis Full code Discussed with RN and SW CC time 37minutes Comment Review of Relevant I have reviewed the following items josé (where applicable) has been applied. Medications: Current Medications Medications (Trade) Dose Ordered Sig/Kailey Route PRN Reason Start Time Stop Time Status Last Admin Dose Admin Meropenem 500 mg/ Sodium Chloride 50 ml @ 100 mls/hr Q8HRS IV 11/17/20 12:30 11/18/20 06:17 Daptomycin 390 mg/ Sodium Chloride 50 ml @ 100 mls/hr Q24H IV 11/17/20 13:00 11/17/20 14:22 Micafungin Sodium 100 mg/Dextrose 100 ml @ 100 mls/hr Q24H IV 11/17/20 12:30 11/18/20 12:05 Vasopressin 20 unit/Dextrose 101 ml @ 12 mls/hr CONT PRN IV SEE I/O RECORD 11/17/20 13:30 11/18/20 03:50 Norepinephrine Bitartrate 32 mg/ Dextrose 250 ml @ 3.703 mls/ hr CONT PRN IV SEE I/O RECORD 11/17/20 13:30 11/18/20 03:50 Hydrocortisone Sodium Succinate (Solu-CORTEF) 300 mg 1X ONCE IVP 11/17/20 14:00 11/17/20 14:01 DC 11/17/20 14:25 Hydrocortisone Sodium Succinate (Solu-CORTEF) 100 mg Q8HRS IVP 11/17/20 22:00 11/18/20 06:17 Ringer's Solution 1,000 ml @ 200 mls/hr Q5H IV 11/17/20 15:00 11/18/20 06:17 Ringer's Solution 1,000 ml @ 1,000 mls/hr Q1H ONCE IV 11/17/20 14:00 11/17/20 14:59 DC 11/17/20 15:45 Fentanyl Citrate 30 ml @ 0 mls/hr CONT PRN IV SEE PROTOCOL 11/17/20 14:00 11/17/20 17:00 Chlorhexidine Gluconate (Peridex) 15 ml BID MM 11/17/20 21:00 11/17/20 22:09 Midazolam HCl 100 ml @ 0 mls/hr CONT PRN IV SEE PROTOCOL 11/17/20 14:00 11/18/20 12:05 Sodium Bicarbonate (Sodium Bicarb Adult 8.4% Syr) 100 meq 1X ONCE IV 11/17/20 14:15 11/17/20 14:16 DC 11/17/20 14:20 Etomidate (Amidate) 12 mg 1X ONCE IV 11/17/20 14:15 11/17/20 14:16 DC 11/17/20 14:15 Succinylcholine Chloride (Anectine) 100 mg 1X ONCE IV 11/17/20 14:15 11/17/20 14:16 DC 11/17/20 14:15 Sodium Bicarbonate (Sodium Bicarb Adult 8.4% Syr) 100 meq 1X ONCE IV 11/17/20 14:15 11/17/20 14:16 DC 11/17/20 14:15 Epinephrine HCl 5 mg/Sodium Chloride 255 ml @ 24.266 mls/ hr CONT PRN IV SEE I/O RECORD 11/17/20 14:45 11/17/20 20:00 DC 11/17/20 19:44 Pantoprazole Sodium (PROTONIX VIAL for IV PUSH) 40 mg DAILYAC IVP 11/18/20 07:30 11/18/20 07:52 Albumin Human 500 ml @ 125 mls/hr 1X ONCE IV 11/17/20 15:15 11/17/20 19:14 DC 11/17/20 15:44 Digoxin (Lanoxin) 500 mcg 1X ONCE IV 11/17/20 15:30 11/17/20 15:31 DC 11/17/20 15:43 Calcium Gluconate 1000 mg/Sodium Chloride 110 ml @ 220 mls/hr 1X ONCE IV 11/17/20 17:15 11/17/20 17:44 DC 11/17/20 17:36 Linezolid/Dextrose 300 ml @ 300 mls/hr Q12HR IV 11/17/20 18:00 11/18/20 10:20 Epinephrine HCl 10 mg/Sodium Chloride 250 ml @ 11.85 mls/ hr CONT PRN IV SEE I/O RECORD 11/17/20 17:30 11/17/20 22:09 Vecuronium [place] (Norcuron Bolus) 6 mg PRN Q2HR PRN IV Vent management 11/17/20 20:00 11/17/20 22:11 Lidocaine HCl (Buffered Lidocaine 1%) 6 ml 1X ONCE INJ 11/18/20 09:45 11/18/20 09:46 DC 11/18/20 09:53 Potassium Chloride 15 meq/ Bicarbonate Dialysis Soln w/ out KCl 5,007.5 ml @ 1,250 mls/ hr Q4H1M IV 11/18/20 11:00 11/18/20 12:03 Potassium Chloride 15 meq/ Bicarbonate Dialysis Soln w/ out KCl 5,007.5 ml @ 1,250 mls/ hr Q4H1M IV 11/18/20 11:00 11/18/20 12:03 Potassium Chloride 15 meq/ Bicarbonate Dialysis Soln w/ out KCl 5,007.5 ml @ 1,250 mls/ hr Q4H1M IV 11/18/20 11:00 11/18/20 12:04 Justifications for Admission Other Justification chf exacerbation GARETH SOLITARIO III DO Nov 18, 2020 12:32
--- NOTE | 2020-11-18 13:00 | NUR ---
Pt started on CRRT at 1240, keeping pt even at this time. Blood pressure remaining stable.
--- NOTE | 2020-11-18 13:09 | RAD ---
11/18/2020 11:02 AM Procedure: 1. Ultrasound-guided placement of left internal jugular temporary dialysis catheter 2. Ultrasound-guided placement of a right common femoral 4 [place] arterial sheath for hemodynamic monitoring Clinical Indication: 1. Acute renal failure 2. Hypotension requiring multiple pressors with severe hemodynamic instability Discussion: The risks and benefits of the procedure were discussed the patient and/or their compliance representative dealer. Informed consent was obtained. A timeout procedure was performed. All elements of maximal sterile barrier technique including the use of a cap, mask, sterile gown, sterile gloves, large sterile sheet, appropriate hand hygiene, and 2% chlorhexidine for cutaneous antisepsis (or acceptable alternative antiseptic per current guidelines) were followed for this procedure. The patient was prepped and draped in the usual sterile fashion. Ultrasound interrogation of the right neck revealed patency and compressibility of the left internal jugular vein. A 21-gauge micropuncture was then used to gain access to this vein under ultrasound guidance. A hard copy ultrasound image was recorded. A guidewire was advanced centrally. 5 [place] sheath was placed. Over a wire following dilatation, a temporary dialysis catheter was advanced centrally. Catheter was found to flush and aspirate normally. Follow-up chest radiograph demonstrates tip in acceptable position. The catheter was secured in place and a sterile dressing was applied. No immediate complications were identified. Ultrasound evaluation demonstrates the right common femoral artery is patent. The artery was accessed using micropuncture technique and direct ultrasound guidance. Reference ultrasound images were saved. A 4 [place] vascular sheath was placed. The sheath was secured, flushed, and sterile dressings were applied. Impression: 1.Successful ultrasound-guided placement of left internal jugular temporary dialysis catheter 2. Placement of a right common femoral arterial sheath as described
[2020-11-18] MEDS: DAPTOmycin (GENERIC) IVPB 390 MG in IV NORMAL SALINE 50ML 50 ML IV SCH (13:11)
--- NOTE | 2020-11-18 13:44 | PDOC ---
PULMONARY PROGRESS NOTES DATE: 11/18/20 TIME: 13:40 Subjective Patient intubated yesterday for decreased saturation, hypotension. Case discussed with multiple physicians yesterday including hematology oncology, infectious disease service. Vitals Vital Signs Date Time Temp Pulse Resp B/P (MAP) Pulse Ox O2 Delivery O2 Flow Rate FiO2 11/18/20 13:00 111 26 101/58 (72) 94 Ventilator 11/18/20 12:00 98.1 98.1 11/17/20 14:00 6.0 Comments Intubated Lungs: Clear Cardiovascular: S1, S2 Abdomen: Soft Neuro Exam: Alert Extremities: No Edema Skin: Warm Labs Laboratory Tests Test 11/16/20 15:10 11/16/20 22:15 11/17/20 08:20 11/17/20 10:20 Urine Random Creatinine 195.8 mg/dL (Not Establ.) Urine Random Total Protein 307.4 mg/dL (Not Establ.) Urine Protein/Creatinine Ratio 1570 mg/g (0-200) Sodium Level 131 mmol/L (136-145) 129 mmol/L (136-145) Potassium Level 4.6 mmol/L (3.5-5.1) 5.7 mmol/L (3.5-5.1) Chloride Level 93 mmol/L (98-107) 91 mmol/L (98-107) Carbon Dioxide Level 21 mmol/L (21-32) 12 mmol/L (21-32) Anion Gap 17 (6-14) 26 (6-14) Blood Urea Nitrogen 43 mg/dL (7-20) 50 mg/dL (7-20) Creatinine 1.9 mg/dL (0.6-1.0) 2.4 mg/dL (0.6-1.0) Estimated GFR (Cockcroft-Gault) 35.6 27.2 Glucose Level 93 mg/dL (70-99) 56 mg/dL (70-99) Calcium Level 9.3 mg/dL (8.5-10.1) 9.8 mg/dL (8.5-10.1) White Blood Count 20.4 x10^3/uL (4.0-11.0) Red Blood Count 4.69 x10^6/uL (3.50-5.40) Hemoglobin 9.1 g/dL (12.0-15.5) Hematocrit 31.7 % (36.0-47.0) Mean Corpuscular Volume 68 fL (79-100) Mean Corpuscular Hemoglobin 19 pg (25-35) Mean Corpuscular Hemoglobin Concent 29 g/dL (31-37) Red Cell Distribution Width 25.1 % (11.5-14.5) Platelet Count 329 x10^3/uL (140-400) Neutrophils (%) (Auto) 82 % (31-73) Lymphocytes (%) (Auto) 11 % (24-48) Monocytes (%) (Auto) 7 % (0-9) Eosinophils (%) (Auto) 0 % (0-3) Basophils (%) (Auto) 0 % (0-3) Neutrophils # (Auto) 16.8 x10^3/uL (1.8-7.7) Lymphocytes # (Auto) 2.2 x10^3/uL (1.0-4.8) Monocytes # (Auto) 1.3 x10^3/uL (0.0-1.1) Eosinophils # (Auto) 0.0 x10^3/uL (0.0-0.7) Basophils # (Auto) 0.0 x10^3/uL (0.0-0.2) BUN/Creatinine Ratio 21 (6-20) Total Bilirubin 4.1 mg/dL (0.2-1.0) Aspartate Amino Transf (AST/SGOT) 103 U/L (15-37) Alanine Aminotransferase (ALT/SGPT) 65 U/L (14-59) Alkaline Phosphatase 144 U/L (46-116) Total Protein 7.6 g/dL (6.4-8.2) Albumin 3.1 g/dL (3.4-5.0) Albumin/Globulin Ratio 0.7 (1.0-1.7) Lactic Acid Level 16.0 mmol/L (0.4-2.0) Test 11/17/20 10:25 11/17/20 10:40 11/17/20 13:20 11/17/20 13:34 Prothrombin Time 42.5 SEC (11.7-14.0) Prothromb Time International Ratio 4.4 (0.8-1.1) Coronavirus (PCR) Not detected (Not Detected) SARS-CoV-2 Antigen (Rapid) Negative (NEGATIVE) White Blood Count 25.0 x10^3/uL (4.0-11.0) Red Blood Count 4.51 x10^6/uL (3.50-5.40) Hemoglobin 8.9 g/dL (12.0-15.5) Hematocrit 31.0 % (36.0-47.0) Mean Corpuscular Volume 69 fL (79-100) Mean Corpuscular Hemoglobin 20 pg (25-35) Mean Corpuscular Hemoglobin Concent 29 g/dL (31-37) Red Cell Distribution Width 26.0 % (11.5-14.5) Platelet Count 327 x10^3/uL (140-400) O2 Saturation 16 % (92-99) Arterial Blood pH 7.21 (7.35-7.45) Arterial Blood pCO2 at Patient Temp 26 mmHg (35-46) Arterial Blood pO2 at Patient Temp < 42 mmHg (75-108) Arterial Blood HCO3 10 mmol/L (21-28) Arterial Blood Base Excess -16 mmol/L (-3-3) Oxyhemoglobin 15.9 % Methemoglobin 2.3 % (0.0-1.9) Carbon Monoxide, Quantitative 0.3 % (0.0-1.9) FiO2 44% 6l nc Test 11/17/20 13:38 11/17/20 13:48 11/17/20 14:00 11/17/20 18:00 Lactic Acid Level 15.6 mmol/L (0.4-2.0) Sodium Level 130 mmol/L (136-145) Potassium Level 6.0 mmol/L (3.5-5.1) Chloride Level 90 mmol/L (98-107) Carbon Dioxide Level 14 mmol/L (21-32) Anion Gap 26 (6-14) Blood Urea Nitrogen 50 mg/dL (7-20) Creatinine 2.7 mg/dL (0.6-1.0) Estimated GFR (Cockcroft-Gault) 23.7 BUN/Creatinine Ratio 19 (6-20) Glucose Level 83 mg/dL (70-99) Calcium Level 9.1 mg/dL (8.5-10.1) Total Bilirubin 4.6 mg/dL (0.2-1.0) Aspartate Amino Transf (AST/SGOT) 108 U/L (15-37) Alanine Aminotransferase (ALT/SGPT) 66 U/L (14-59) Alkaline Phosphatase 144 U/L (46-116) Total Protein 7.0 g/dL (6.4-8.2) Albumin 3.1 g/dL (3.4-5.0) Albumin/Globulin Ratio 0.8 (1.0-1.7) Platelet Count 327 x10^3/uL (140-400) Prothrombin Time 42.2 SEC (11.7-14.0) Prothromb Time International Ratio 4.3 (0.8-1.1) Activated Partial Thromboplast Time 32 SEC (24-38) Fibrinogen 315 mg/dL (200-440) D-Dimer (Senia) 13.78 ug/mlFEU (0.00-0.50) Hemoglobin 8.4 g/dL (12.0-15.5) Hematocrit 30.0 % (36.0-47.0) Mean Corpuscular Hemoglobin Concent 28 g/dL (31-37) Test 11/18/20 00:01 11/18/20 04:30 11/18/20 06:30 11/18/20 07:35 Hemoglobin 9.0 g/dL (12.0-15.5) 8.5 g/dL (12.0-15.5) 8.4 g/dL (12.0-15.5) Hematocrit 31.9 % (36.0-47.0) 30.8 % (36.0-47.0) 29.9 % (36.0-47.0) Mean Corpuscular Hemoglobin Concent 28 g/dL (31-37) 28 g/dL (31-37) 28 g/dL (31-37) White Blood Count 26.7 x10^3/uL (4.0-11.0) Red Blood Count 4.38 x10^6/uL (3.50-5.40) Mean Corpuscular Volume 70 fL (79-100) Mean Corpuscular Hemoglobin 20 pg (25-35) Red Cell Distribution Width 25.9 % (11.5-14.5) Platelet Count 243 x10^3/uL (140-400) Neutrophils (%) (Auto) 82 % (31-73) Lymphocytes (%) (Auto) 12 % (24-48) Monocytes (%) (Auto) 5 % (0-9) Eosinophils (%) (Auto) 0 % (0-3) Basophils (%) (Auto) 1 % (0-3) Neutrophils # (Auto) 22.0 x10^3/uL (1.8-7.7) Lymphocytes # (Auto) 3.3 x10^3/uL (1.0-4.8) Monocytes # (Auto) 1.3 x10^3/uL (0.0-1.1) Eosinophils # (Auto) 0.0 x10^3/uL (0.0-0.7) Basophils # (Auto) 0.1 x10^3/uL (0.0-0.2) Segmented Neutrophils % 85 % (35-66) Band Neutrophils % 8 % (0-9) Lymphocytes % 3 % (24-48) Monocytes % 4 % (0-10) Nucleated Red Blood Cells 1 Platelet Estimate Adequate (ADEQUATE) Polychromasia Slight Poikilocytosis Present Anisocytosis Mod Microcytosis Present Target Cells Occ Ovalocytes Few [place] Cells Acanthocytes Few RBC Morphology Bizarre Forms Few Sodium Level 130 mmol/L (136-145) Potassium Level 5.2 mmol/L (3.5-5.1) Chloride Level 93 mmol/L (98-107) Carbon Dioxide Level 15 mmol/L (21-32) Anion Gap 22 (6-14) Blood Urea Nitrogen 55 mg/dL (7-20) Creatinine 3.0 mg/dL (0.6-1.0) Estimated GFR (Cockcroft-Gault) 21.0 Glucose Level 100 mg/dL (70-99) Calcium Level 8.6 mg/dL (8.5-10.1) Prothrombin Time 61.7 SEC (11.7-14.0) Prothromb Time International Ratio 6.9 (0.8-1.1) Fibrinogen 226 mg/dL (200-440) Total Bilirubin 4.5 mg/dL (0.2-1.0) Direct Bilirubin 3.6 mg/dL (0.0-0.2) Aspartate Amino Transf (AST/SGOT) 240 U/L (15-37) Alanine Aminotransferase (ALT/SGPT) 88 U/L (14-59) Alkaline Phosphatase 131 U/L (46-116) Total Protein 6.1 g/dL (6.4-8.2) Albumin 2.8 g/dL (3.4-5.0) Test 11/18/20 10:20 11/18/20 10:50 O2 Saturation 100 % (92-99) Arterial Blood pH 7.32 (7.35-7.45) Arterial Blood pCO2 at Patient Temp 31 mmHg (35-46) Arterial Blood pO2 at Patient Temp 266 mmHg (75-108) Arterial Blood HCO3 16 mmol/L (21-28) Arterial Blood Base Excess -10 mmol/L (-3-3) FiO2 100 Hemoglobin 8.0 g/dL (12.0-15.5) Hematocrit 28.2 % (36.0-47.0) Mean Corpuscular Hemoglobin Concent 29 g/dL (31-37) Laboratory Tests Test 11/17/20 13:48 11/17/20 14:00 11/17/20 18:00 11/18/20 00:01 Sodium Level 130 mmol/L (136-145) Potassium Level 6.0 mmol/L (3.5-5.1) Chloride Level 90 mmol/L (98-107) Carbon Dioxide Level 14 mmol/L (21-32) Anion Gap 26 (6-14) Blood Urea Nitrogen 50 mg/dL (7-20) Creatinine 2.7 mg/dL (0.6-1.0) Estimated GFR (Cockcroft-Gault) 23.7 BUN/Creatinine Ratio 19 (6-20) Glucose Level 83 mg/dL (70-99) Calcium Level 9.1 mg/dL (8.5-10.1) Total Bilirubin 4.6 mg/dL (0.2-1.0) Aspartate Amino Transf (AST/SGOT) 108 U/L (15-37) Alanine Aminotransferase (ALT/SGPT) 66 U/L (14-59) Alkaline Phosphatase 144 U/L (46-116) Total Protein 7.0 g/dL (6.4-8.2) Albumin 3.1 g/dL (3.4-5.0) Albumin/Globulin Ratio 0.8 (1.0-1.7) Platelet Count 327 x10^3/uL (140-400) Prothrombin Time 42.2 SEC (11.7-14.0) Prothromb Time International Ratio 4.3 (0.8-1.1) Activated Partial Thromboplast Time 32 SEC (24-38) Fibrinogen 315 mg/dL (200-440) D-Dimer (Senia) 13.78 ug/mlFEU (0.00-0.50) Hemoglobin 8.4 g/dL (12.0-15.5) 9.0 g/dL (12.0-15.5) Hematocrit 30.0 % (36.0-47.0) 31.9 % (36.0-47.0) Mean Corpuscular Hemoglobin Concent 28 g/dL (31-37) 28 g/dL (31-37) Test 11/18/20 04:30 11/18/20 06:30 11/18/20 07:35 11/18/20 10:20 White Blood Count 26.7 x10^3/uL (4.0-11.0) Red Blood Count 4.38 x10^6/uL (3.50-5.40) Hemoglobin 8.5 g/dL (12.0-15.5) 8.4 g/dL (12.0-15.5) Hematocrit 30.8 % (36.0-47.0) 29.9 % (36.0-47.0) Mean Corpuscular Volume 70 fL (79-100) Mean Corpuscular Hemoglobin 20 pg (25-35) Mean Corpuscular Hemoglobin Concent 28 g/dL (31-37) 28 g/dL (31-37) Red Cell Distribution Width 25.9 % (11.5-14.5) Platelet Count 243 x10^3/uL (140-400) Neutrophils (%) (Auto) 82 % (31-73) Lymphocytes (%) (Auto) 12 % (24-48) Monocytes (%) (Auto) 5 % (0-9) Eosinophils (%) (Auto) 0 % (0-3) Basophils (%) (Auto) 1 % (0-3) Neutrophils # (Auto) 22.0 x10^3/uL (1.8-7.7) Lymphocytes # (Auto) 3.3 x10^3/uL (1.0-4.8) Monocytes # (Auto) 1.3 x10^3/uL (0.0-1.1) Eosinophils # (Auto) 0.0 x10^3/uL (0.0-0.7) Basophils # (Auto) 0.1 x10^3/uL (0.0-0.2) Segmented Neutrophils % 85 % (35-66) Band Neutrophils % 8 % (0-9) Lymphocytes % 3 % (24-48) Monocytes % 4 % (0-10) Nucleated Red Blood Cells 1 Platelet Estimate Adequate (ADEQUATE) Polychromasia Slight Poikilocytosis Present Anisocytosis Mod Microcytosis Present Target Cells Occ Ovalocytes Few [place] Cells Acanthocytes Few RBC Morphology Bizarre Forms Few Sodium Level 130 mmol/L (136-145) Potassium Level 5.2 mmol/L (3.5-5.1) Chloride Level 93 mmol/L (98-107) Carbon Dioxide Level 15 mmol/L (21-32) Anion Gap 22 (6-14) Blood Urea Nitrogen 55 mg/dL (7-20) Creatinine 3.0 mg/dL (0.6-1.0) Estimated GFR (Cockcroft-Gault) 21.0 Glucose Level 100 mg/dL (70-99) Calcium Level 8.6 mg/dL (8.5-10.1) Prothrombin Time 61.7 SEC (11.7-14.0) Prothromb Time International Ratio 6.9 (0.8-1.1) Fibrinogen 226 mg/dL (200-440) Total Bilirubin 4.5 mg/dL (0.2-1.0) Direct Bilirubin 3.6 mg/dL (0.0-0.2) Aspartate Amino Transf (AST/SGOT) 240 U/L (15-37) Alanine Aminotransferase (ALT/SGPT) 88 U/L (14-59) Alkaline Phosphatase 131 U/L (46-116) Total Protein 6.1 g/dL (6.4-8.2) Albumin 2.8 g/dL (3.4-5.0) O2 Saturation 100 % (92-99) Arterial Blood pH 7.32 (7.35-7.45) Arterial Blood pCO2 at Patient Temp 31 mmHg (35-46) Arterial Blood pO2 at Patient Temp 266 mmHg (75-108) Arterial Blood HCO3 16 mmol/L (21-28) Arterial Blood Base Excess -10 mmol/L (-3-3) FiO2 100 Test 11/18/20 10:50 Hemoglobin 8.0 g/dL (12.0-15.5) Hematocrit 28.2 % (36.0-47.0) Mean Corpuscular Hemoglobin Concent 29 g/dL (31-37) Medications Active Scripts Medications Dose Route/Sig Max Daily Dose Days Date Category Amiodarone Hcl 200 Mg Tablet 200 Mg PO DAILY 30 09/29/20 Rx Eliquis (Apixaban) 5 Mg Tablet 5 Mg PO BID 30 09/29/20 Rx Doxycycline Hyclate 100 Mg Tablet 100 Mg PO BID 5 09/29/20 Rx Klor-Con M20 (Potassium Chloride) 20 Meq Tab.er.prt 20 Meq PO [id number] 30 09/29/20 Rx Furosemide 40 Mg Tablet 40 Mg PO DAILY 30 09/29/20 Rx Omeprazole 20 Mg Capsule.dr 1 Cap PO DAILY 08/08/20 Reported Metoprolol Tartrate 25 Mg Tablet 1 Tab PO BID 12/20/14 Reported Feosol (Ferrous Sulfate) 325 Mg Tablet 325 Mg PO DAILY 12/20/14 Reported Aspirin 325 Mg Tablet 1 Tab PO DAILY 12/20/14 Reported Amitriptyline Hcl 50 Mg Tablet 1 Tab PO QHS 12/17/14 Reported Ultram (Tramadol Hcl) 50 Mg Tablet 1 Tab PO Q6HRS PRN 11/01/14 Reported Dulera 100 Mcg/5 Mcg Inhaler (Mometasone/Formoterol) 13 Gm Hfa.aer.ad 2 Puff IH BID 11/01/14 Reported Lidoderm (Lidocaine) 700 Mg Adh..patch 1 Patch TP DAILY PRN 11/01/14 Reported Neurontin (Gabapentin) 300 Mg Capsule 2 Cap PO BID 11/01/14 Reported Flonase (Fluticasone Propionate) 16 Gm [place].susp 2 [place] NS DAILY 11/01/14 Reported Cyclobenzaprine Hcl 10 Mg Tablet 1 Tab PO TID PRN 11/01/14 Reported Celexa (Citalopram Hydrobromide) 40 Mg Tablet 1 Tab PO DAILY 11/01/14 Reported Cetirizine Hcl 10 Mg Tablet 1 Tab PO DAILY 11/01/14 Reported Proair Hfa Inhaler (Albuterol Sulfate) 8.5 Gm Hfa.aer.ad 2 Puff IH PRN Q4-6HRS 11/01/14 Reported Impression . IMPRESSION: 1. Acute hypoxemic respiratory failure multifactorial 2. Septic shock etiology on clear 3. Possible pneumonia, gram-negative, gram-positive. Chest x-ray abnormal suspect combination of pulmonary edema and pneumonia 4. Acute kidney injury. 5. Colitis seen on CT abdomen and pelvis 6. Atrial fibrillation/atrial flutter. 7. Acute on chronic heart failure. 8. Bilateral pleural effusions. 9. History of ASD, status post closure. 10. Chronic obstructive pulmonary disease with exacerbation. 11. [id number] cor pulmonale. 12. Severe metabolic acidosis 13. coagulopathy 14. Acute kidney injury 15. Acute liver failure 16. Positive urine drug screen 17. Cardiomyopathy ejection fraction of 15% Plan . Continue current support with assist control ventilation We will start CRRT today Discussed with hematology Antibiotics per infectious disease service Reversal agent for Eliquis Follow cardiology input patient echocardiogram revealed ejection fraction 15% Nutritional support IV fluids per nephrology Continue pressors for mean arterial pressure above 60 Discussed with mother at the bedside Total cumulative critical care time from 1 PM to 1:34 PM DARIAN BASS MD Nov 18, 2020 13:44
[2020-11-18] MEDS ORDERED: [UNRECOGNIZED DRUG - OTHER] IV ONE (14:30)
[2020-11-18] MEDS ORDERED: HUM PROTHROMBIN CPLX IV ONE (14:30)
[2020-11-18] MEDS ORDERED: TOTAL VOLUME IV ONE (14:30)
[2020-11-18] MEDS: TRANEXAMIC ACID in NS IVPB 50 ML INJ SCH ×2 (14:55→21:24)
--- NOTE | 2020-11-18 15:17 | PDOC2 ---
CONSULT Date of Consult Date of Consult DATE: 11/18/20 TIME: 15:07 Reason for Consult Reason for Consult: Elevated INR and bleeding through NG tube Referring Physician Referring Physician: Dr. Heller Identification/Chief Complaint Chief Complaint Shortness of breath and edema Source Source: Caregiver, Chart review History of Present Illness Reason for Visit: Cassandra Pérez is 39-year-old -Citizen Of [place] female with history of ASD status post repair and recent hospitalization for atrial fibrillation who has been admitted to the hospital for further management after presenting with shortness of breath and lower extremity edema. Patient has experienced a rapid clinical deterioration since her hospitalization due to respiratory distress. She was intubated on 11/17/2020. Her INR was elevated at the time of admission. She was also found to have associated abnormality in LFTs with elevated bilirubin and transaminases at the time of hospitalization. These have persisted and worsened since then. Her work-up has also been notable for new KENNETH that has required initiation of CRRT on 11/18/2020. Her hemogram at the time of hospitalization has shown anemia with normal platelet count. She has been found to have persistent elevation in INR despite cessation of use of apixaban. She had been started on apixaban during hospitalization in September 2020 where she presented with atrial fibrillation. She had also been started on amiodarone at the time. Patient was intubated and sedated at the time of my visit. She was unable to provide additional history or review of systems. She has been found to have dark blood and clots through NG tube. Hematology consultation has been sought to determine appropriateness of use of reversal agent for anticoagulation. Past Medical History Cardiovascular: HTN, Hyperlipidemia, Valve insufficiency, Pulmonary hypertension Pulmonary: Asthma, Bronchitis CENTRAL NERVOUS SYSTEM: Other GI: GERD Heme/Onc: Anemia NOS Psych: Anxiety Musculoskeletal: low back pain Past Surgical History Past Surgical History: Other (no abdominal surgeries ) Family History Family History: Other (noncontributory ) Social History Quit Current Problem List Problem List Problems Medical Problems: (1) KENNETH (acute kidney injury) Status: Acute (2) Atrial fibrillation with RVR Status: Acute (3) CHF (congestive heart failure) Status: Acute (4) Hypoglycemia Status: Acute (5) Pneumonia Status: Acute Current Medications Current Medications Current Medications Furosemide (Lasix) 40 mg 1X ONCE IVP Last administered on 11/15/20at 11:16; Start 11/15/20 at 10:15; Stop 11/15/20 at 10:22; Status DC Vancomycin HCl 2 gm/Sodium Chloride 500 ml @ 250 mls/hr 1X ONCE IV Last administered on 11/15/20at 13:37; Start 11/15/20 at 13:00; Stop 11/15/20 at 14:59; Status DC Piperacillin Sod/ Tazobactam Sod 3.375 gm/Sodium Chloride 50 ml @ 100 mls/hr 1X ONCE IV Last administered on 11/15/20at 13:05; Start 11/15/20 at 13:00; Stop 11/15/20 at 13:29; Status DC Dextrose (Dextrose 50%-Water Syringe) 25 gm STK-MED ONCE IV ; Start 11/15/20 at 12:27; Stop 11/15/20 at 12:27; Status DC Dextrose (Dextrose 50%-Water Syringe) 25 gm 1X ONCE IV Last administered on 11/15/20at 12:35; Start 11/15/20 at 12:45; Stop 11/15/20 at 12:46; Status DC Ondansetron HCl (Zofran) 4 mg PRN Q8HRS PRN IV NAUSEA/VOMITING; Start 11/15/20 at 13:00; Stop 11/15/20 at 18:28; Status DC Fentanyl Citrate (Fentanyl 2ml Vial) 50 mcg PRN Q1HR PRN IV PAIN; Start 11/15/20 at 13:00; Stop 11/16/20 at 12:59; Status DC Acetaminophen (Tylenol) 650 mg PRN Q4HRS PRN PO FEVER > 100.3'F; Start 11/15/20 at 13:00; Stop 11/15/20 at 18:29; Status DC Dextrose/Sodium Chloride 1,000 ml @ 50 mls/hr Q20H IV Last administered on 11/17/20at 09:28; Start 11/15/20 at 16:00 Sodium Bicarbonate (Sodium Bicarb Adult 8.4% Syr) 100 meq 1X ONCE IV Last administered on 11/15/20at 16:43; Start 11/15/20 at 15:30; Stop 11/15/20 at 15:31; Status DC Vancomycin HCl (Vanco Per Pharmacy) 1 each PRN DAILY PRN MC SEE COMMENTS; Start 11/15/20 at 16:15; Stop 11/16/20 at 11:05; Status DC Cefepime HCl (Maxipime) 2 gm Q24H IVP Last administered on 11/16/20at 16:30; Start 11/15/20 at 17:00; Stop 11/17/20 at 11:51; Status DC Sennosides (Senna) 17.2 mg PRN BID PRN PO CONSTIPATION; Start 11/15/20 at 16:15 Docusate Sodium (Colace) 100 mg PRN DAILY PRN PO HARD STOOLS; Start 11/15/20 at 16:15 Ondansetron HCl (Zofran) 4 mg PRN Q6HRS PRN IVP NAUSEA/VOMITING; Start 11/15/20 at 16:15 Dextrose (Dextrose 50%-Water Syringe) 12.5 gm PRN Q15MIN PRN IV SEE COMMENTS; Start 11/15/20 at 16:15 Acetaminophen (Tylenol) 650 mg PRN Q4HRS PRN PO TEMP OVER 100.4F OR MILD PAIN; Start 11/15/20 at 16:15 Heparin Sodium (Porcine) (Heparin Sodium) 5,000 unit Q12HR SQ ; Start 11/15/20 at 21:00; Stop 11/15/20 at 16:17; Status DC Amiodarone HCl (Cordarone) 200 mg DAILY PO ; Start 11/16/20 at 09:00; Stop 11/15/20 at 16:38; Status DC Aspirin (T[place]na Aspirin) 325 mg DAILY PO ; Start 11/16/20 at 09:00; Stop 11/15/20 at 16:38; Status DC Fluticasone Propionate (Flonase) 2 spray DAILY NS Last administered on 11/17/20at 08:37; Start 11/16/20 at 09:00 Gabapentin (Neurontin) 600 mg BID PO Last administered on 11/17/20at 09:23; Start 11/15/20 at 21:00 Metoprolol Tartrate (Lopressor) 25 mg BID PO Last administered on 11/15/20at 21:28; Start 11/15/20 at 21:00; Stop 11/16/20 at 09:08; Status DC Citalopram Hydrobromide (CeleXA) 40 mg DAILY PO Last administered on 11/17/20at 09:23; Start 11/16/20 at 09:00 Pantoprazole Sodium (Protonix) 40 mg DAILYAC PO Last administered on 11/17/20at 08:36; Start 11/16/20 at 07:30; Stop 11/17/20 at 14:53; Status DC Thiamine Mononitrate (Vitamin B-1) 300 mg DAILY PO ; Start 11/15/20 at 16:30; Stop 11/15/20 at 16:22; Status DC Thiamine HCl 300 mg/Dextrose 53 ml @ 102 mls/hr Q8HRS IV Last administered on 11/17/20at 06:17; Start 11/15/20 at 22:00; Stop 11/17/20 at 09:46; Status DC Metronidazole 100 ml @ 100 mls/hr Q12HR IV Last administered on 11/17/20at 08:41; Start 11/15/20 at 21:00; Stop 11/17/20 at 11:51; Status DC Metoprolol Tartrate (Lopressor) 50 mg BID PO Last administered on 11/17/20at 09:24; Start 11/16/20 at 09:15; Stop 11/17/20 at 12:56; Status DC Furosemide (Lasix) 40 mg 1X ONCE IVP Last administered on 11/16/20at 14:08; Start 11/16/20 at 14:00; Stop 11/16/20 at 14:01; Status DC Potassium Chloride (Klor-Con) 60 meq 1X ONCE PO Last administered on 11/16/20at 14:06; Start 11/16/20 at 14:00; Stop 11/16/20 at 14:01; Status DC Calcium Carbonate/ Glycine (Tums) 500 mg PRN Q4HRS PRN PO MILD INDIGESTION; Start 11/16/20 at 21:15; Stop 11/18/20 at 09:38; Status DC Calcium Carbonate/ Glycine (Tums) 1,000 mg PRN Q4HRS PRN PO SEVERE INDIGESTION Last administered on 11/16/20at 21:37; Start 11/16/20 at 21:30 Albuterol/ Ipratropium (Duoneb) 3 ml RTQID NEB Last administered on 11/17/20at 11:48; Start 11/17/20 at 09:00 Budesonide (Pulmicort) 0.5 mg RTBID NEB Last administered on 11/17/20at 08:43; Start 11/17/20 at 09:00 Thiamine Mononitrate (Vitamin B-1) 300 mg TID PO ; Start 11/17/20 at 14:00 Sodium Bicarbonate 150 meq/Dextrose 1,150 ml @ 125 mls/hr Q9H12M ONCE IV Last administered on 11/17/20at 11:26; Start 11/17/20 at 11:30; Stop 11/17/20 at 20:41 ; Status DC Norepinephrine Bitartrate 8 mg/ Dextrose 258 ml @ 15.344 mls/ hr CONT PRN IV PER PROTOCOL Last administered on 11/17/20at 11:32; Start 11/17/20 at 11:15; Stop 11/17/20 at 14:30; Status DC Meropenem 500 mg/ Sodium Chloride 50 ml @ 100 mls/hr Q8HRS IV Last administered on 11/18/20at 06:17; Start 11/17/20 at 12:30; Stop 11/18/20 at 13:01; Status DC Daptomycin 390 mg/ Sodium Chloride 50 ml @ 100 mls/hr Q24H IV Last administered on 11/18/20at 13:11; Start 11/17/20 at 13:00; Stop 11/18/20 at 14: 09; Status DC Micafungin Sodium 100 mg/Dextrose 100 ml @ 100 mls/hr Q24H IV Last administered on 11/18/20at 12:05; Start 11/17/20 at 12:30 Lidocaine HCl (Xylocaine-Mpf 1% 2ml Vial) 2 ml 1X ONCE INJ ; Start 11/17/20 at 12:00; Stop 11/17/20 at 12:07; Status DC Vasopressin 20 unit/Dextrose 101 ml @ 12 mls/hr CONT PRN IV SEE I/O RECORD Last administered on 11/18/20at 14:30; Start 11/17/20 at 13:30 Vasopressin 20 unit/Dextrose 101 ml @ 12 mls/hr CONT PRN IV SEE I/O RECORD; Start 11/17/20 at 13:30; Status UNV Phenylephrine HCl 50 mg/Sodium Chloride 255 ml @ 12.133 mls/ hr CONT PRN IV SEE I/O RECORD; Start 11/17/20 at 13:30 Norepinephrine Bitartrate 32 mg/ Dextrose 250 ml @ 3.703 mls/ hr CONT PRN IV SEE I/O RECORD Last administered on 11/18/20at 03:50; Start 11/17/20 at 13:30 Hydrocortisone Sodium Succinate (Solu-CORTEF) 300 mg 1X ONCE IVP Last administered on 11/17/20at 14:25; Start 11/17/20 at 14:00; Stop 11/17/20 at 14:01; Status DC Hydrocortisone Sodium Succinate (Solu-CORTEF) 100 mg Q8HRS IVP Last administered on 11/18/20at 14:33; Start 11/17/20 at 22:00 Ringer's Solution 1,000 ml @ 200 mls/hr Q5H IV Last administered on 11/18/20at 13:25; Start 11/17/20 at 15:00 Ringer's Solution 1,000 ml @ 1,000 mls/hr Q1H ONCE IV Last administered on 11/17/20at 15:45; Start 11/17/20 at 14:00; Stop 11/17/20 at 14:59; Status DC Fentanyl Citrate 30 ml @ 0 mls/hr CONT PRN IV SEE PROTOCOL Last administered on 11/17/20at 17:00; Start 11/17/20 at 14:00 Fentanyl Citrate (Fentanyl 2ml Vial) 25 mcg PRN Q1HR PRN IV SEE COMMENTS; Start 11/17/20 at 14:00 Fentanyl Citrate (Fentanyl 2ml Vial) 50 mcg PRN Q1HR PRN IV SEE COMMENTS; Start 11/17/20 at 14:00 Chlorhexidine Gluconate (Peridex) 15 ml BID MM Last administered on 11/18/20at 09:00; Start 11/17/20 at 21:00 Morphine Sulfate (Morphine Sulfate) 2 mg PRN Q1HR PRN IV SEE COMMENTS.; Start 11/17/20 at 14:00 Morphine Sulfate (Morphine Sulfate) 4 mg PRN Q1HR PRN IV SEE COMMENTS.; Start 11/17/20 at 14:00 Midazolam HCl 100 ml @ 0 mls/hr CONT PRN IV SEE PROTOCOL Last administered on 11/18/20at 12:05; Start 11/17/20 at 14:00 Succinylcholine Chloride (Anectine) 200 mg STK-MED ONCE .ROUTE ; Start 11/17/20 at 14:00; Stop 11/17/20 at 14:00; Status DC Etomidate (Amidate) 20 mg STK-MED ONCE IV ; Start 11/17/20 at 14:00; Stop 11/17/20 at 14:00; Status DC Sodium Bicarbonate (Sodium Bicarb Adult 8.4% Syr) 50 meq STK-MED ONCE .ROUTE ; Start 11/17/20 at 14:02; Stop 11/17/20 at 14:03; Status DC Sodium Bicarbonate (Sodium Bicarb Adult 8.4% Syr) 100 meq 1X ONCE IV Last administered on 11/17/20at 14:20; Start 11/17/20 at 14:15; Stop 11/17/20 at 14:16; Status DC Etomidate (Amidate) 12 mg 1X ONCE IV Last administered on 11/17/20at 14:15; Start 11/17/20 at 14:15; Stop 11/17/20 at 14:16; Status DC Succinylcholine Chloride (Anectine) 100 mg 1X ONCE IV Last administered on 11/17/20at 14:15; Start 11/17/20 at 14:15; Stop 11/17/20 at 14:16; Status DC Sodium Bicarbonate (Sodium Bicarb Adult 8.4% Syr) 100 meq 1X ONCE IV Last administered on 11/17/20at 14:15; Start 11/17/20 at 14:15; Stop 11/17/20 at 14 :16; Status DC Epinephrine HCl 5 mg/Sodium Chloride 255 ml @ 24.266 mls/ hr CONT PRN IV SEE I/O RECORD Last administered on 11/17/20at 19:44; Start 11/17/20 at 14:45; Stop 11/17/20 at 20:00; Status DC Pantoprazole Sodium (PROTONIX VIAL for IV PUSH) 40 mg DAILYAC IVP Last administered on 11/18/20at 07:52; Start 11/18/20 at 07:30 Albumin Human 500 ml @ 125 mls/hr 1X ONCE IV Last administered on 11/17/20at 15:44; Start 11/17/20 at 15:15; Stop 11/17/20 at 19:14; Status DC Digoxin (Lanoxin) 500 mcg 1X ONCE IV Last administered on 11/17/20at 15:43; Start 11/17/20 at 15:30; Stop 11/17/20 at 15:31; Status DC Lidocaine HCl (Xylocaine 2% Topical 5gm Tube) 5 makenna STK-MED ONCE TP ; Start 11/16/20 at 12:00; Stop 11/17/20 at 15:35; Status DC Calcium Gluconate 1000 mg/Sodium Chloride 110 ml @ 220 mls/hr 1X ONCE IV Last administered on 11/17/20at 17:36; Start 11/17/20 at 17:15; Stop 11/17/20 at 17:44; Status DC Linezolid/Dextrose 300 ml @ 300 mls/hr Q12HR IV ; Start 11/17/20 at 21:00; Status Cancel Linezolid/Dextrose 300 ml @ 300 mls/hr Q12HR IV ; Start 11/17/20 at 21:00; Status UNV Linezolid/Dextrose 300 ml @ 300 mls/hr Q12HR IV Last administered on 11/18/20at 10:20; Start 11/17/20 at 18:00 Epinephrine HCl 10 mg/Sodium Chloride 250 ml @ 11.85 mls/ hr CONT PRN IV SEE I/O RECORD Last administered on 11/17/20at 22:09; Start 11/17/20 at 17:30 Vecuronium Superior (Norcuron Bolus) 6 mg PRN Q2HR PRN IV Vent management Last administered on 11/17/20at 22:11; Start 11/17/20 at 20:00 Lidocaine HCl (Buffered Lidocaine 1%) 3 ml STK-MED ONCE .ROUTE ; Start 11/18/20 at 09:21; Stop 11/18/20 at 09:22; Status DC Lidocaine HCl (Buffered Lidocaine 1%) 6 ml 1X ONCE INJ Last administered on 11/18/20at 09:53; Start 11/18/20 at 09:45; Stop 11/18/20 at 09:46; Status DC Potassium Chloride 15 meq/ Bicarbonate Dialysis Soln w/ out KCl 5,007.5 ml @ 1,250 mls/ hr Q4H1M IV Last administered on 11/18/20at 12:03; Start 11/18/20 at 11:00 Potassium Chloride 15 meq/ Bicarbonate Dialysis Soln w/ out KCl 5,007.5 ml @ 1,250 mls/ hr Q4H1M IV Last administered on 11/18/20at 12:03; Start 11/18/20 at 11:00 Potassium Chloride 15 meq/ Bicarbonate Dialysis Soln w/ out KCl 5,007.5 ml @ 1,250 mls/ hr Q4H1M IV Last administered on 11/18/20at 12:04; Start 11/18/20 at 11:00 Tranexamic Acid 50 ml @ 50 mls/hr Q12HR INJ Last administered on 11/18/20at 14:55; Start 11/18/20 at 13:00 Daptomycin 390 mg/ Sodium Chloride 50 ml @ 100 mls/hr Q48H IV ; Start 11/20/20 at 13:00 Meropenem 500 mg/ Sodium Chloride 50 ml @ 100 mls/hr DAILY IV ; Start 11/19/20 at 09:00 Prothrombin Complex Concent (Human) 2000 unit/ Miscellaneous 80 ml @ 160 mls/hr 1X ONCE IV Last administered on 11/18/20at 14:48; Start 11/18/20 at 14:30; Stop 11/18/20 at 14:59; Status DC Active Scripts Active Amiodarone Hcl 200 Mg Tablet 200 Mg PO DAILY 30 Days Eliquis (Apixaban) 5 Mg Tablet 5 Mg PO BID 30 Days Doxycycline Hyclate 100 Mg Tablet 100 Mg PO BID 5 Days Klor-Con M20 (Potassium Chloride) 20 Meq Tab.er.prt 20 Meq PO DAILYWBKFT 30 Days Furosemide 40 Mg Tablet 40 Mg PO DAILY 30 Days Reported Omeprazole 20 Mg Capsule.dr 1 Cap PO DAILY Metoprolol Tartrate 25 Mg Tablet 1 Tab PO BID Feosol (Ferrous Sulfate) 325 Mg Tablet 325 Mg PO DAILY Aspirin 325 Mg Tablet 1 Tab PO DAILY Amitriptyline Hcl 50 Mg Tablet 1 Tab PO QHS Ultram (Tramadol Hcl) 50 Mg Tablet 1 Tab PO Q6HRS PRN Dulera 100 Mcg/5 Mcg Inhaler (Mometasone/Formoterol) 13 Gm Hfa.aer.ad 2 Puff IH BID Lidoderm (Lidocaine) 700 Mg Adh..patch 1 Patch TP DAILY PRN Neurontin (Gabapentin) 300 Mg Capsule 2 Cap PO BID Flonase (Fluticasone Propionate) 16 Gm [place].susp 2 [place] NS DAILY Cyclobenzaprine Hcl 10 Mg Tablet 1 Tab PO TID PRN Celexa (Citalopram Hydrobromide) 40 Mg Tablet 1 Tab PO DAILY Cetirizine Hcl 10 Mg Tablet 1 Tab PO DAILY Proair Hfa Inhaler (Albuterol Sulfate) 8.5 Gm Hfa.aer.ad 2 Puff IH PRN Q4-6HRS Allergies Allergies: Coded Allergies: ibuprofen (Verified Allergy, Intermediate, Hives, 08/08/20) I S O L A T I O N *CONTACT* (Verified Allergy, Unknown, 08/08/20) mrsa + ROS Review of System Unable to obtain due to patient's clinical status Physical Exam General: Other (Intubated and sedated) HEENT: Atraumatic Lungs: Other (Chemical breath sounds) Abdomen: Soft Extremities: No cyanosis, Other (Lower extremity edema noted) Skin: No rashes, No breakdown Neuro: Other (Able to assess) Vitals VITALS Vital Signs Date Time Temp Pulse Resp B/P (MAP) Pulse Ox O2 Delivery O2 Flow Rate FiO2 11/18/20 15:00 90 26 114/61 (78) 100 Ventilator 11/18/20 12:00 98.1 98.1 11/17/20 14:00 6.0 Labs Labs Laboratory Tests Test 11/16/20 15:10 11/16/20 22:15 11/17/20 08:20 11/17/20 10:20 Urine Random Creatinine 195.8 mg/dL (Not Establ.) Urine Random Total Protein 307.4 mg/dL (Not Establ.) Urine Protein/Creatinine Ratio 1570 mg/g (0-200) Sodium Level 131 mmol/L (136-145) 129 mmol/L (136-145) Potassium Level 4.6 mmol/L (3.5-5.1) 5.7 mmol/L (3.5-5.1) Chloride Level 93 mmol/L (98-107) 91 mmol/L (98-107) Carbon Dioxide Level 21 mmol/L (21-32) 12 mmol/L (21-32) Anion Gap 17 (6-14) 26 (6-14) Blood Urea Nitrogen 43 mg/dL (7-20) 50 mg/dL (7-20) Creatinine 1.9 mg/dL (0.6-1.0) 2.4 mg/dL (0.6-1.0) Estimated GFR (Cockcroft-Gault) 35.6 27.2 Glucose Level 93 mg/dL (70-99) 56 mg/dL (70-99) Calcium Level 9.3 mg/dL (8.5-10.1) 9.8 mg/dL (8.5-10.1) White Blood Count 20.4 x10^3/uL (4.0-11.0) Red Blood Count 4.69 x10^6/uL (3.50-5.40) Hemoglobin 9.1 g/dL (12.0-15.5) Hematocrit 31.7 % (36.0-47.0) Mean Corpuscular Volume 68 fL (79-100) Mean Corpuscular Hemoglobin 19 pg (25-35) Mean Corpuscular Hemoglobin Concent 29 g/dL (31-37) Red Cell Distribution Width 25.1 % (11.5-14.5) Platelet Count 329 x10^3/uL (140-400) Neutrophils (%) (Auto) 82 % (31-73) Lymphocytes (%) (Auto) 11 % (24-48) Monocytes (%) (Auto) 7 % (0-9) Eosinophils (%) (Auto) 0 % (0-3) Basophils (%) (Auto) 0 % (0-3) Neutrophils # (Auto) 16.8 x10^3/uL (1.8-7.7) Lymphocytes # (Auto) 2.2 x10^3/uL (1.0-4.8) Monocytes # (Auto) 1.3 x10^3/uL (0.0-1.1) Eosinophils # (Auto) 0.0 x10^3/uL (0.0-0.7) Basophils # (Auto) 0.0 x10^3/uL (0.0-0.2) BUN/Creatinine Ratio 21 (6-20) Total Bilirubin 4.1 mg/dL (0.2-1.0) Aspartate Amino Transf (AST/SGOT) 103 U/L (15-37) Alanine Aminotransferase (ALT/SGPT) 65 U/L (14-59) Alkaline Phosphatase 144 U/L (46-116) Total Protein 7.6 g/dL (6.4-8.2) Albumin 3.1 g/dL (3.4-5.0) Albumin/Globulin Ratio 0.7 (1.0-1.7) Lactic Acid Level 16.0 mmol/L (0.4-2.0) Test 11/17/20 10:25 11/17/20 10:40 11/17/20 13:20 11/17/20 13:34 Prothrombin Time 42.5 SEC (11.7-14.0) Prothromb Time International Ratio 4.4 (0.8-1.1) Coronavirus (PCR) Not detected (Not Detected) SARS-CoV-2 Antigen (Rapid) Negative (NEGATIVE) White Blood Count 25.0 x10^3/uL (4.0-11.0) Red Blood Count 4.51 x10^6/uL (3.50-5.40) Hemoglobin 8.9 g/dL (12.0-15.5) Hematocrit 31.0 % (36.0-47.0) Mean Corpuscular Volume 69 fL (79-100) Mean Corpuscular Hemoglobin 20 pg (25-35) Mean Corpuscular Hemoglobin Concent 29 g/dL (31-37) Red Cell Distribution Width 26.0 % (11.5-14.5) Platelet Count 327 x10^3/uL (140-400) O2 Saturation 16 % (92-99) Arterial Blood pH 7.21 (7.35-7.45) Arterial Blood pCO2 at Patient Temp 26 mmHg (35-46) Arterial Blood pO2 at Patient Temp < 42 mmHg (75-108) Arterial Blood HCO3 10 mmol/L (21-28) Arterial Blood Base Excess -16 mmol/L (-3-3) Oxyhemoglobin 15.9 % Methemoglobin 2.3 % (0.0-1.9) Carbon Monoxide, Quantitative 0.3 % (0.0-1.9) FiO2 44% 6l nc Test 11/17/20 13:38 11/17/20 13:48 11/17/20 14:00 11/17/20 18:00 Lactic Acid Level 15.6 mmol/L (0.4-2.0) Sodium Level 130 mmol/L (136-145) Potassium Level 6.0 mmol/L (3.5-5.1) Chloride Level 90 mmol/L (98-107) Carbon Dioxide Level 14 mmol/L (21-32) Anion Gap 26 (6-14) Blood Urea Nitrogen 50 mg/dL (7-20) Creatinine 2.7 mg/dL (0.6-1.0) Estimated GFR (Cockcroft-Gault) 23.7 BUN/Creatinine Ratio 19 (6-20) Glucose Level 83 mg/dL (70-99) Calcium Level 9.1 mg/dL (8.5-10.1) Total Bilirubin 4.6 mg/dL (0.2-1.0) Aspartate Amino Transf (AST/SGOT) 108 U/L (15-37) Alanine Aminotransferase (ALT/SGPT) 66 U/L (14-59) Alkaline Phosphatase 144 U/L (46-116) Total Protein 7.0 g/dL (6.4-8.2) Albumin 3.1 g/dL (3.4-5.0) Albumin/Globulin Ratio 0.8 (1.0-1.7) Platelet Count 327 x10^3/uL (140-400) Prothrombin Time 42.2 SEC (11.7-14.0) Prothromb Time International Ratio 4.3 (0.8-1.1) Activated Partial Thromboplast Time 32 SEC (24-38) Fibrinogen 315 mg/dL (200-440) D-Dimer (Senia) 13.78 ug/mlFEU (0.00-0.50) Hemoglobin 8.4 g/dL (12.0-15.5) Hematocrit 30.0 % (36.0-47.0) Mean Corpuscular Hemoglobin Concent 28 g/dL (31-37) Test 11/18/20 00:01 11/18/20 04:30 11/18/20 06:30 11/18/20 07:35 Hemoglobin 9.0 g/dL (12.0-15.5) 8.5 g/dL (12.0-15.5) 8.4 g/dL (12.0-15.5) Hematocrit 31.9 % (36.0-47.0) 30.8 % (36.0-47.0) 29.9 % (36.0-47.0) Mean Corpuscular Hemoglobin Concent 28 g/dL (31-37) 28 g/dL (31-37) 28 g/dL (31-37) White Blood Count 26.7 x10^3/uL (4.0-11.0) Red Blood Count 4.38 x10^6/uL (3.50-5.40) Mean Corpuscular Volume 70 fL (79-100) Mean Corpuscular Hemoglobin 20 pg (25-35) Red Cell Distribution Width 25.9 % (11.5-14.5) Platelet Count 243 x10^3/uL (140-400) Neutrophils (%) (Auto) 82 % (31-73) Lymphocytes (%) (Auto) 12 % (24-48) Monocytes (%) (Auto) 5 % (0-9) Eosinophils (%) (Auto) 0 % (0-3) Basophils (%) (Auto) 1 % (0-3) Neutrophils # (Auto) 22.0 x10^3/uL (1.8-7.7) Lymphocytes # (Auto) 3.3 x10^3/uL (1.0-4.8) Monocytes # (Auto) 1.3 x10^3/uL (0.0-1.1) Eosinophils # (Auto) 0.0 x10^3/uL (0.0-0.7) Basophils # (Auto) 0.1 x10^3/uL (0.0-0.2) Segmented Neutrophils % 85 % (35-66) Band Neutrophils % 8 % (0-9) Lymphocytes % 3 % (24-48) Monocytes % 4 % (0-10) Nucleated Red Blood Cells 1 Platelet Estimate Adequate (ADEQUATE) Polychromasia Slight Poikilocytosis Present Anisocytosis Mod Microcytosis Present Target Cells Occ Ovalocytes Few [place] Cells Acanthocytes Few RBC Morphology Bizarre Forms Few Sodium Level 130 mmol/L (136-145) Potassium Level 5.2 mmol/L (3.5-5.1) Chloride Level 93 mmol/L (98-107) Carbon Dioxide Level 15 mmol/L (21-32) Anion Gap 22 (6-14) Blood Urea Nitrogen 55 mg/dL (7-20) Creatinine 3.0 mg/dL (0.6-1.0) Estimated GFR (Cockcroft-Gault) 21.0 Glucose Level 100 mg/dL (70-99) Calcium Level 8.6 mg/dL (8.5-10.1) Prothrombin Time 61.7 SEC (11.7-14.0) Prothromb Time International Ratio 6.9 (0.8-1.1) Fibrinogen 226 mg/dL (200-440) Total Bilirubin 4.5 mg/dL (0.2-1.0) Direct Bilirubin 3.6 mg/dL (0.0-0.2) Aspartate Amino Transf (AST/SGOT) 240 U/L (15-37) Alanine Aminotransferase (ALT/SGPT) 88 U/L (14-59) Alkaline Phosphatase 131 U/L (46-116) Total Protein 6.1 g/dL (6.4-8.2) Albumin 2.8 g/dL (3.4-5.0) Test 11/18/20 10:20 11/18/20 10:50 O2 Saturation 100 % (92-99) Arterial Blood pH 7.32 (7.35-7.45) Arterial Blood pCO2 at Patient Temp 31 mmHg (35-46) Arterial Blood pO2 at Patient Temp 266 mmHg (75-108) Arterial Blood HCO3 16 mmol/L (21-28) Arterial Blood Base Excess -10 mmol/L (-3-3) FiO2 100 Hemoglobin 8.0 g/dL (12.0-15.5) Hematocrit 28.2 % (36.0-47.0) Mean Corpuscular Hemoglobin Concent 29 g/dL (31-37) Laboratory Tests Test 11/17/20 18:00 11/18/20 00:01 11/18/20 04:30 11/18/20 06:30 Hemoglobin 8.4 g/dL (12.0-15.5) 9.0 g/dL (12.0-15.5) 8.5 g/dL (12.0-15.5) Hematocrit 30.0 % (36.0-47.0) 31.9 % (36.0-47.0) 30.8 % (36.0-47.0) Mean Corpuscular Hemoglobin Concent 28 g/dL (31-37) 28 g/dL (31-37) 28 g/dL (31-37) White Blood Count 26.7 x10^3/uL (4.0-11.0) Red Blood Count 4.38 x10^6/uL (3.50-5.40) Mean Corpuscular Volume 70 fL (79-100) Mean Corpuscular Hemoglobin 20 pg (25-35) Red Cell Distribution Width 25.9 % (11.5-14.5) Platelet Count 243 x10^3/uL (140-400) Neutrophils (%) (Auto) 82 % (31-73) Lymphocytes (%) (Auto) 12 % (24-48) Monocytes (%) (Auto) 5 % (0-9) Eosinophils (%) (Auto) 0 % (0-3) Basophils (%) (Auto) 1 % (0-3) Neutrophils # (Auto) 22.0 x10^3/uL (1.8-7.7) Lymphocytes # (Auto) 3.3 x10^3/uL (1.0-4.8) Monocytes # (Auto) 1.3 x10^3/uL (0.0-1.1) Eosinophils # (Auto) 0.0 x10^3/uL (0.0-0.7) Basophils # (Auto) 0.1 x10^3/uL (0.0-0.2) Segmented Neutrophils % 85 % (35-66) Band Neutrophils % 8 % (0-9) Lymphocytes % 3 % (24-48) Monocytes % 4 % (0-10) Nucleated Red Blood Cells 1 Platelet Estimate Adequate (ADEQUATE) Polychromasia Slight Poikilocytosis Present Anisocytosis Mod Microcytosis Present Target Cells Occ Ovalocytes Few Иван Cells Acanthocytes Few RBC Morphology Bizarre Forms Few Sodium Level 130 mmol/L (136-145) Potassium Level 5.2 mmol/L (3.5-5.1) Chloride Level 93 mmol/L (98-107) Carbon Dioxide Level 15 mmol/L (21-32) Anion Gap 22 (6-14) Blood Urea Nitrogen 55 mg/dL (7-20) Creatinine 3.0 mg/dL (0.6-1.0) Estimated GFR (Cockcroft-Gault) 21.0 Glucose Level 100 mg/dL (70-99) Calcium Level 8.6 mg/dL (8.5-10.1) Prothrombin Time 61.7 SEC (11.7-14.0) Prothromb Time International Ratio 6.9 (0.8-1.1) Fibrinogen 226 mg/dL (200-440) Total Bilirubin 4.5 mg/dL (0.2-1.0) Direct Bilirubin 3.6 mg/dL (0.0-0.2) Aspartate Amino Transf (AST/SGOT) 240 U/L (15-37) Alanine Aminotransferase (ALT/SGPT) 88 U/L (14-59) Alkaline Phosphatase 131 U/L (46-116) Total Protein 6.1 g/dL (6.4-8.2) Albumin 2.8 g/dL (3.4-5.0) Test 11/18/20 07:35 11/18/20 10:20 11/18/20 10:50 Hemoglobin 8.4 g/dL (12.0-15.5) 8.0 g/dL (12.0-15.5) Hematocrit 29.9 % (36.0-47.0) 28.2 % (36.0-47.0) Mean Corpuscular Hemoglobin Concent 28 g/dL (31-37) 29 g/dL (31-37) O2 Saturation 100 % (92-99) Arterial Blood pH 7.32 (7.35-7.45) Arterial Blood pCO2 at Patient Temp 31 mmHg (35-46) Arterial Blood pO2 at Patient Temp 266 mmHg (75-108) Arterial Blood HCO3 16 mmol/L (21-28) Arterial Blood Base Excess -10 mmol/L (-3-3) FiO2 100 Assessment/Plan Assessment/Plan Assessment: Acute hypoxic respiratory failure requiring intubation and chemical ventilation Acute kidney injury requiring addition of CRRT on 11/18/2020 Shock of undetermined etiology requiring pressor support, currently on 2 pressors Abnormal LFTs, secondary to shock liver versus other etiology Elevated INR, unclear etiology Recommendations: -Minute and checked fibrinogen level. This has returned normal. Elevated INR disproportionate to the extent expected with apixaban -Given clinically evident bleeding and recent use of apixaban, recommend proceeding with Kcentra. Orders placed with pharmacy -Given continued bleeding, recommend starting tranexamic acid 1 mg every 12 hours until cessation of bleeding -Check factor VII level prior to administration of Kcentra and mixing studies to determine etiology of elevated INR despite normal PT -Recommend ultrasound Doppler of the liver to evaluate for Budd-Chiari syndrome given presentation with lower extremity and abdominal swelling, elevated INR and abnormal LFTs -Evaluation and management of acute respiratory failure per Dr. Heller -CRRT per nephrology Rakesh Corado MD Medical Oncology/Hematology Ph: [phone] OBI CORADO MD Nov 18, 2020 15:17
--- NOTE | 2020-11-18 15:24 | RAD ---
Procedure: Ultrasound-guided placement of right internal jugular central venous catheter11/18/2020 1:20 PM Clinical Indication: Hemodynamic instability Discussion: The risks and benefits of the procedure were discussed the patient and/or their branch customer service representative. Informed consent was obtained. A timeout procedure was performed. All elements of maximal sterile barrier technique including the use of a cap, mask, sterile gown, sterile gloves, large sterile sheet, appropriate hand hygiene, and 2% chlorhexidine for cutaneous antisepsis (or acceptable alternative antiseptic per current guidelines) were followed for this procedure. The patient was prepped and draped in the usual sterile fashion. Ultrasound interrogation of the right neck revealed patency and compressibility of the right internal jugular vein. A 21-gauge micropuncture was then used to gain access to this vein under ultrasound guidance. A hard copy ultrasound image was recorded. A guidewire was advanced centrally. 5 Iceland[place] sheath was placed. Over a wire following dilatation, a triple-lumen central venous catheter was advanced centrally. Catheter was found to flush and aspirate normally. Follow-up chest radiograph demonstrates tip at the cavoatrial junction. Catheter secured in place and a sterile dressing was applied. No immediate complications were identified. Impression: Successful ultrasound-guided placement of right internal jugular triple-lumen central venous catheter
[2020-11-18 15:34] LABS: BASE EXCESS ABG -6 mmol/L (-3-3); HCO3 ABG 18 mmol/L (21-28); PCO2 ABG 30 mmHg (35-46); PO2 ABG 216 mmHg (75-108); SAT O2 ABG 99 % (92-99)
[2020-11-18 15:35] LABS: FIO2 ABG 70
--- NOTE | 2020-11-18 16:43 | NUR ---
SW following today for discharge planning. Spoke with RN and reviewed chart. Pt on ventilator and not ready for discharge.
--- NOTE | 2020-11-18 18:22 | RAD ---
Limited abdominal ultrasound. INDICATION: Abnormal liver function tests with leg swelling. Clinical concern for possible Budd-Chiar i syndrome. COMPARISON: Abdomen pelvis CT without IV contrast of 11/15/2020. TECHNIQUE: Grayscale and color Doppler imaging and spectral Doppler imaging of the abdomen focused on the liver and portal venous system was performed. FINDINGS: The hepatic veins are dilated and demonstrate appropriate directional flow but relative increased amp litude of the A wave and D waves. IVC is patent and mildly dilated as well. The main portal vein shows biphasic waveform with predominantly hepatopedal flow but intermittent rev ersal of flow (i.e. hepatofugal flow). Splenic vein is patent and demonstrates normal directional flow with unremarkable waveforms. There is ascites. IMPRESSION: 1. No evidence of Budd-Chiari. 2. Hepatic venous congestion with intermittent reversal of flow in the main portal vein, suggesting e levated right heart pressures, as may be seen with tricuspid regurgitation. Recommend correlation wit h echocardiography Electronically signed by: Thao Noguera MD (11/18/2020 6:19 PM) [id number]
[2020-11-18 18:48] LABS: BASO # 0.2 x10^3/uL (0.0-0.2); BASO % 1 % (0-3); EOS % 0 % (0-3); HEMATOCRIT 27.1 % (36.0-47.0); HEMOGLOBIN 8.2 g/dL (12.0-15.5); LYMPH # 1.7 x10^3/uL (1.0-4.8); LYMPH % 6 % (24-48); MEAN CORPUSCULAR HEMOGLOBIN 20 pg (25-35); MEAN CORPUSCULAR HGB CONC 30 g/dL (31-37); MEAN CORPUSCULAR VOLUME 65 fL (79-100); MONO # 1.2 x10^3/uL (0.0-1.1); MONO % 5 % (0-9); NEUT # 23.3 x10^3/uL (1.8-7.7); NEUT % 88 % (31-73); PLATELET COUNT 192 x10^3/uL (140-400); RED BLOOD COUNT 4.15 x10^6/uL (3.50-5.40); RED CELL DISTRIBUTION WIDTH 25.2 % (11.5-14.5); WHITE BLOOD COUNT 26.5 x10^3/uL (4.0-11.0)
[2020-11-18 18:55] LABS: CALCIUM 8.1 mg/dL (8.5-10.1); CREATININE 2.1 mg/dL (0.6-1.0); GFR 31.7; MAGNESIUM 2.2 mg/dL (1.8-2.4); PHOSPHORUS 3.9 mg/dL (2.6-4.7); POTASSIUM 4.4 mmol/L (3.5-5.1)
[2020-11-18] MEDS: MEROPENEM 1 GM in IV NORMAL SALINE 100ML 100 ML IV SCH (21:25)
[2020-11-19] VITALS (24 sets, daily range): BP systolic 87–160; BP diastolic 52–83
[2020-11-19] MEDS: IV DEXTROSE 5 %-0.45 % NACL 1,000 ML IV SCH
[2020-11-19] MEDS: POTASSIUM CHLORIDE 15 MEQ in DIALYSIS SOLUTION BGK 0/2.5 5,000 ML IV SCH ×14 (01:11→21:50)
[2020-11-19] MEDS: IV RINGERS,LACTATED 1000ML 1,000 ML IV SCH ×3 (02:00→11:17)
[2020-11-19 06:08] LABS: CREATININE 1.7 mg/dL (0.6-1.0); GFR 40.5; MAGNESIUM 2.3 mg/dL (1.8-2.4); PHOSPHORUS 2.9 mg/dL (2.6-4.7); POTASSIUM 4.4 mmol/L (3.5-5.1)
[2020-11-19] MEDS: HYDROCORTISONE SOD SUCC/PF 100 MG/2 ML VIAL. IVP SCH ×3 (06:14→22:04)
[2020-11-19 07:03] LABS: ALBUMIN 2.3 g/dL (3.4-5.0); ALBUMIN/GLOBULIN RATIO 0.7 (1.0-1.7); BASO % 0 % (0-3); CALCIUM 7.9 mg/dL (8.5-10.1); CREATININE 1.5 mg/dL (0.6-1.0); EOS % 0 % (0-3); GFR 46.8; HEMATOCRIT 23.9 % (36.0-47.0); HEMOGLOBIN 7.2 g/dL (12.0-15.5); LYMPH # 0.6 x10^3/uL (1.0-4.8); LYMPH % 4 % (24-48); MAGNESIUM 2.3 mg/dL (1.8-2.4); MEAN CORPUSCULAR HEMOGLOBIN 19 pg (25-35); MEAN CORPUSCULAR HGB CONC 30 g/dL (31-37); MEAN CORPUSCULAR VOLUME 64 fL (79-100); MONO % 6 % (0-9); NEUT # 14.9 x10^3/uL (1.8-7.7); NEUT % 90 % (31-73); PHOSPHORUS 2.4 mg/dL (2.6-4.7); PLATELET COUNT 148 x10^3/uL (140-400); POTASSIUM 3.9 mmol/L (3.5-5.1); RED BLOOD COUNT 3.71 x10^6/uL (3.50-5.40); RED CELL DISTRIBUTION WIDTH 25.1 % (11.5-14.5); TOTAL BILIRUBIN 5.2 mg/dL (0.2-1.0); TOTAL PROTEIN 5.4 g/dL (6.4-8.2); WHITE BLOOD COUNT 16.6 x10^3/uL (4.0-11.0)
[2020-11-19 07:17] LABS: BASO % 0 % (0-3); EOS % 0 % (0-3); HEMATOCRIT 25.3 % (36.0-47.0); HEMOGLOBIN 7.5 g/dL (12.0-15.5); LYMPH # 0.6 x10^3/uL (1.0-4.8); LYMPH % 4 % (24-48); MEAN CORPUSCULAR HEMOGLOBIN 19 pg (25-35); MEAN CORPUSCULAR HGB CONC 30 g/dL (31-37); MEAN CORPUSCULAR VOLUME 66 fL (79-100); MONO % 6 % (0-9); NEUT # 16.7 x10^3/uL (1.8-7.7); NEUT % 91 % (31-73); PLATELET COUNT 163 x10^3/uL (140-400); RED BLOOD COUNT 3.86 x10^6/uL (3.50-5.40); RED CELL DISTRIBUTION WIDTH 25.6 % (11.5-14.5); WHITE BLOOD COUNT 18.4 x10^3/uL (4.0-11.0)
[2020-11-19] MEDS: IPRATRPIUM/ALBUTEROL 0.5/2.5MG 3 ML NEBU. NEB SCH ×4 (07:58→20:00)
[2020-11-19] MEDS: BUDESONIDE 0.5 MG/2 ML NEBU. NEB SCH ×2 (07:58→20:00)
[2020-11-19] MEDS: PANTOPRAZOLE IV PUSH 40 MG VIAL. IVP SCH (08:08)
[2020-11-19 08:12] LABS: BASE EXCESS ABG 1 mmol/L (-3-3); HCO3 ABG 24 mmol/L (21-28); PCO2 ABG 29 mmHg (35-46); PO2 ABG 179 mmHg (75-108); SAT O2 ABG 99 % (92-99)
[2020-11-19 08:15] LABS: FIO2 ABG 50
[2020-11-19] MEDS: FLUTICASONE 50MCG/NASAL SPRAY 16GM BOTTLE. NS SCH (08:35)
[2020-11-19] MEDS: CITALOPRAM 20 MG TABLET. PO SCH (08:35)
[2020-11-19] MEDS: THIAMINE 100 MG TABLET. PO SCH ×3 (08:35→20:50)
[2020-11-19] MEDS: GABAPENTIN 300 MG CAPSULE. PO SCH ×2 (08:35→20:50)
--- NOTE | 2020-11-19 08:42 | PDOC ---
SURGICAL PROGRESS NOTE DATE: 11/19/20 TIME: 08:41 Subjective Patient intubated and sedated Vital Signs Vital Signs Date Time Temp Pulse Resp B/P (MAP) Pulse Ox O2 Delivery O2 Flow Rate FiO2 11/19/20 08:00 97.2 91 16 101/59 (73) 100 Ventilator 97.2 I&O Intake and Output 11/19/20 07:00 Intake Total 3251.9 ml Output Total 605 ml Balance 2646.9 ml IV Total 3251.9 ml Output Urine Total 205 ml Gastric Drainage Total 400 ml PATIENT HAS A NASCIMENTO: Yes General: Other (Intubated and sedated) HEENT: Other (OG in place as well as endotracheal tube) Abdomen: Soft, Other (Mildly distended hypoactive bowel sounds) Labs Laboratory Tests Test 11/17/20 10:20 11/17/20 10:25 11/17/20 10:40 11/17/20 13:20 Lactic Acid Level 16.0 mmol/L (0.4-2.0) Prothrombin Time 42.5 SEC (11.7-14.0) Prothromb Time International Ratio 4.4 (0.8-1.1) Coronavirus (PCR) Not detected (Not Detected) SARS-CoV-2 Antigen (Rapid) Negative (NEGATIVE) White Blood Count 25.0 x10^3/uL (4.0-11.0) Red Blood Count 4.51 x10^6/uL (3.50-5.40) Hemoglobin 8.9 g/dL (12.0-15.5) Hematocrit 31.0 % (36.0-47.0) Mean Corpuscular Volume 69 fL (79-100) Mean Corpuscular Hemoglobin 20 pg (25-35) Mean Corpuscular Hemoglobin Concent 29 g/dL (31-37) Red Cell Distribution Width 26.0 % (11.5-14.5) Platelet Count 327 x10^3/uL (140-400) Test 11/17/20 13:34 11/17/20 13:38 11/17/20 13:48 11/17/20 14:00 O2 Saturation 16 % (92-99) Arterial Blood pH 7.21 (7.35-7.45) Arterial Blood pCO2 at Patient Temp 26 mmHg (35-46) Arterial Blood pO2 at Patient Temp < 42 mmHg (75-108) Arterial Blood HCO3 10 mmol/L (21-28) Arterial Blood Base Excess -16 mmol/L (-3-3) Oxyhemoglobin 15.9 % Methemoglobin 2.3 % (0.0-1.9) Carbon Monoxide, Quantitative 0.3 % (0.0-1.9) FiO2 44% 6l nc Lactic Acid Level 15.6 mmol/L (0.4-2.0) Sodium Level 130 mmol/L (136-145) Potassium Level 6.0 mmol/L (3.5-5.1) Chloride Level 90 mmol/L (98-107) Carbon Dioxide Level 14 mmol/L (21-32) Anion Gap 26 (6-14) Blood Urea Nitrogen 50 mg/dL (7-20) Creatinine 2.7 mg/dL (0.6-1.0) Estimated GFR (Cockcroft-Gault) 23.7 BUN/Creatinine Ratio 19 (6-20) Glucose Level 83 mg/dL (70-99) Calcium Level 9.1 mg/dL (8.5-10.1) Total Bilirubin 4.6 mg/dL (0.2-1.0) Aspartate Amino Transf (AST/SGOT) 108 U/L (15-37) Alanine Aminotransferase (ALT/SGPT) 66 U/L (14-59) Alkaline Phosphatase 144 U/L (46-116) Total Protein 7.0 g/dL (6.4-8.2) Albumin 3.1 g/dL (3.4-5.0) Albumin/Globulin Ratio 0.8 (1.0-1.7) Platelet Count 327 x10^3/uL (140-400) Prothrombin Time 42.2 SEC (11.7-14.0) Prothromb Time International Ratio 4.3 (0.8-1.1) Activated Partial Thromboplast Time 32 SEC (24-38) Fibrinogen 315 mg/dL (200-440) D-Dimer (Senia) 13.78 ug/mlFEU (0.00-0.50) Test 11/17/20 18:00 11/18/20 00:01 11/18/20 04:30 11/18/20 06:30 Hemoglobin 8.4 g/dL (12.0-15.5) 9.0 g/dL (12.0-15.5) 8.5 g/dL (12.0-15.5) Hematocrit 30.0 % (36.0-47.0) 31.9 % (36.0-47.0) 30.8 % (36.0-47.0) Mean Corpuscular Hemoglobin Concent 28 g/dL (31-37) 28 g/dL (31-37) 28 g/dL (31-37) White Blood Count 26.7 x10^3/uL (4.0-11.0) Red Blood Count 4.38 x10^6/uL (3.50-5.40) Mean Corpuscular Volume 70 fL (79-100) Mean Corpuscular Hemoglobin 20 pg (25-35) Red Cell Distribution Width 25.9 % (11.5-14.5) Platelet Count 243 x10^3/uL (140-400) Neutrophils (%) (Auto) 82 % (31-73) Lymphocytes (%) (Auto) 12 % (24-48) Monocytes (%) (Auto) 5 % (0-9) Eosinophils (%) (Auto) 0 % (0-3) Basophils (%) (Auto) 1 % (0-3) Neutrophils # (Auto) 22.0 x10^3/uL (1.8-7.7) Lymphocytes # (Auto) 3.3 x10^3/uL (1.0-4.8) Monocytes # (Auto) 1.3 x10^3/uL (0.0-1.1) Eosinophils # (Auto) 0.0 x10^3/uL (0.0-0.7) Basophils # (Auto) 0.1 x10^3/uL (0.0-0.2) Segmented Neutrophils % 85 % (35-66) Band Neutrophils % 8 % (0-9) Lymphocytes % 3 % (24-48) Monocytes % 4 % (0-10) Nucleated Red Blood Cells 1 Platelet Estimate Adequate (ADEQUATE) Polychromasia Slight Poikilocytosis Present Anisocytosis Mod Microcytosis Present Target Cells Occ Ovalocytes Few [place] Cells Acanthocytes Few RBC Morphology Bizarre Forms Few Sodium Level 130 mmol/L (136-145) Potassium Level 5.2 mmol/L (3.5-5.1) Chloride Level 93 mmol/L (98-107) Carbon Dioxide Level 15 mmol/L (21-32) Anion Gap 22 (6-14) Blood Urea Nitrogen 55 mg/dL (7-20) Creatinine 3.0 mg/dL (0.6-1.0) Estimated GFR (Cockcroft-Gault) 21.0 Glucose Level 100 mg/dL (70-99) Calcium Level 8.6 mg/dL (8.5-10.1) Prothrombin Time 61.7 SEC (11.7-14.0) Prothromb Time International Ratio 6.9 (0.8-1.1) Fibrinogen 226 mg/dL (200-440) Total Bilirubin 4.5 mg/dL (0.2-1.0) Direct Bilirubin 3.6 mg/dL (0.0-0.2) Aspartate Amino Transf (AST/SGOT) 240 U/L (15-37) Alanine Aminotransferase (ALT/SGPT) 88 U/L (14-59) Alkaline Phosphatase 131 U/L (46-116) Total Protein 6.1 g/dL (6.4-8.2) Albumin 2.8 g/dL (3.4-5.0) Test 11/18/20 07:35 11/18/20 10:20 11/18/20 10:50 11/18/20 15:20 Hemoglobin 8.4 g/dL (12.0-15.5) 8.0 g/dL (12.0-15.5) Hematocrit 29.9 % (36.0-47.0) 28.2 % (36.0-47.0) Mean Corpuscular Hemoglobin Concent 28 g/dL (31-37) 29 g/dL (31-37) O2 Saturation 100 % (92-99) 99 % (92-99) Arterial Blood pH 7.32 (7.35-7.45) 7.39 (7.35-7.45) Arterial Blood pCO2 at Patient Temp 31 mmHg (35-46) 30 mmHg (35-46) Arterial Blood pO2 at Patient Temp 266 mmHg (75-108) 216 mmHg (75-108) Arterial Blood HCO3 16 mmol/L (21-28) 18 mmol/L (21-28) Arterial Blood Base Excess -10 mmol/L (-3-3) -6 mmol/L (-3-3) FiO2 100 70 Test 11/18/20 18:30 11/19/20 01:20 11/19/20 06:20 11/19/20 08:05 White Blood Count 26.5 x10^3/uL (4.0-11.0) 18.4 x10^3/uL (4.0-11.0) 16.6 x10^3/uL (4.0-11.0) Red Blood Count 4.15 x10^6/uL (3.50-5.40) 3.86 x10^6/uL (3.50-5.40) 3.71 x10^6/uL (3.50-5.40) Hemoglobin 8.2 g/dL (12.0-15.5) 7.5 g/dL (12.0-15.5) 7.2 g/dL (12.0-15.5) Hematocrit 27.1 % (36.0-47.0) 25.3 % (36.0-47.0) 23.9 % (36.0-47.0) Mean Corpuscular Volume 65 fL (79-100) 66 fL (79-100) 64 fL (79-100) Mean Corpuscular Hemoglobin 20 pg (25-35) 19 pg (25-35) 19 pg (25-35) Mean Corpuscular Hemoglobin Concent 30 g/dL (31-37) 30 g/dL (31-37) 30 g/dL (31-37) Red Cell Distribution Width 25.2 % (11.5-14.5) 25.6 % (11.5-14.5) 25.1 % (11.5-14.5) Platelet Count 192 x10^3/uL (140-400) 163 x10^3/uL (140-400) 148 x10^3/uL (140-400) Neutrophils (%) (Auto) 88 % (31-73) 91 % (31-73) 90 % (31-73) Lymphocytes (%) (Auto) 6 % (24-48) 4 % (24-48) 4 % (24-48) Monocytes (%) (Auto) 5 % (0-9) 6 % (0-9) 6 % (0-9) Eosinophils (%) (Auto) 0 % (0-3) 0 % (0-3) 0 % (0-3) Basophils (%) (Auto) 1 % (0-3) 0 % (0-3) 0 % (0-3) Neutrophils # (Auto) 23.3 x10^3/uL (1.8-7.7) 16.7 x10^3/uL (1.8-7.7) 14.9 x10^3/uL (1.8-7.7) Lymphocytes # (Auto) 1.7 x10^3/uL (1.0-4.8) 0.6 x10^3/uL (1.0-4.8) 0.6 x10^3/uL (1.0-4.8) Monocytes # (Auto) 1.2 x10^3/uL (0.0-1.1) 1.0 x10^3/uL (0.0-1.1) 1.0 x10^3/uL (0.0-1.1) Eosinophils # (Auto) 0.0 x10^3/uL (0.0-0.7) 0.0 x10^3/uL (0.0-0.7) 0.0 x10^3/uL (0.0-0.7) Basophils # (Auto) 0.2 x10^3/uL (0.0-0.2) 0.0 x10^3/uL (0.0-0.2) 0.0 x10^3/uL (0.0-0.2) Sodium Level 130 mmol/L (136-145) 132 mmol/L (136-145) 134 mmol/L (136-145) Potassium Level 4.4 mmol/L (3.5-5.1) 4.4 mmol/L (3.5-5.1) 3.9 mmol/L (3.5-5.1) Chloride Level 96 mmol/L (98-107) 98 mmol/L (98-107) 100 mmol/L (98-107) Carbon Dioxide Level 23 mmol/L (21-32) 23 mmol/L (21-32) 24 mmol/L (21-32) Anion Gap 11 (6-14) 11 (6-14) 10 (6-14) Blood Urea Nitrogen 40 mg/dL (7-20) 32 mg/dL (7-20) 26 mg/dL (7-20) Creatinine 2.1 mg/dL (0.6-1.0) 1.7 mg/dL (0.6-1.0) 1.5 mg/dL (0.6-1.0) Estimated GFR (Cockcroft-Gault) 31.7 40.5 46.8 Glucose Level 115 mg/dL (70-99) 84 mg/dL (70-99) 97 mg/dL (70-99) Calcium Level 8.1 mg/dL (8.5-10.1) 8.0 mg/dL (8.5-10.1) 7.9 mg/dL (8.5-10.1) Phosphorus Level 3.9 mg/dL (2.6-4.7) 2.9 mg/dL (2.6-4.7) 2.4 mg/dL (2.6-4.7) Magnesium Level 2.2 mg/dL (1.8-2.4) 2.3 mg/dL (1.8-2.4) 2.3 mg/dL (1.8-2.4) Creatine Kinase 357 U/L (26-192) BUN/Creatinine Ratio 17 (6-20) Total Bilirubin 5.2 mg/dL (0.2-1.0) Aspartate Amino Transf (AST/SGOT) 242 U/L (15-37) Alanine Aminotransferase (ALT/SGPT) 98 U/L (14-59) Alkaline Phosphatase 107 U/L (46-116) Total Protein 5.4 g/dL (6.4-8.2) Albumin 2.3 g/dL (3.4-5.0) Albumin/Globulin Ratio 0.7 (1.0-1.7) O2 Saturation 99 % (92-99) Arterial Blood pH 7.53 (7.35-7.45) Arterial Blood pCO2 at Patient Temp 29 mmHg (35-46) Arterial Blood pO2 at Patient Temp 179 mmHg (75-108) Arterial Blood HCO3 24 mmol/L (21-28) Arterial Blood Base Excess 1 mmol/L (-3-3) FiO2 50 Laboratory Tests Test 11/18/20 10:20 11/18/20 10:50 2/12/21 15:20 11/18/20 18:30 O2 Saturation 100 % (92-99) 99 % (92-99) Arterial Blood pH 7.32 (7.35-7.45) 7.39 (7.35-7.45) Arterial Blood pCO2 at Patient Temp 31 mmHg (35-46) 30 mmHg (35-46) Arterial Blood pO2 at Patient Temp 266 mmHg (75-108) 216 mmHg (75-108) Arterial Blood HCO3 16 mmol/L (21-28) 18 mmol/L (21-28) Arterial Blood Base Excess -10 mmol/L (-3-3) -6 mmol/L (-3-3) FiO2 100 70 Hemoglobin 8.0 g/dL (12.0-15.5) 8.2 g/dL (12.0-15.5) Hematocrit 28.2 % (36.0-47.0) 27.1 % (36.0-47.0) Mean Corpuscular Hemoglobin Concent 29 g/dL (31-37) 30 g/dL (31-37) White Blood Count 26.5 x10^3/uL (4.0-11.0) Red Blood Count 4.15 x10^6/uL (3.50-5.40) Mean Corpuscular Volume 65 fL (79-100) Mean Corpuscular Hemoglobin 20 pg (25-35) Red Cell Distribution Width 25.2 % (11.5-14.5) Platelet Count 192 x10^3/uL (140-400) Neutrophils (%) (Auto) 88 % (31-73) Lymphocytes (%) (Auto) 6 % (24-48) Monocytes (%) (Auto) 5 % (0-9) Eosinophils (%) (Auto) 0 % (0-3) Basophils (%) (Auto) 1 % (0-3) Neutrophils # (Auto) 23.3 x10^3/uL (1.8-7.7) Lymphocytes # (Auto) 1.7 x10^3/uL (1.0-4.8) Monocytes # (Auto) 1.2 x10^3/uL (0.0-1.1) Eosinophils # (Auto) 0.0 x10^3/uL (0.0-0.7) Basophils # (Auto) 0.2 x10^3/uL (0.0-0.2) Sodium Level 130 mmol/L (136-145) Potassium Level 4.4 mmol/L (3.5-5.1) Chloride Level 96 mmol/L (98-107) Carbon Dioxide Level 23 mmol/L (21-32) Anion Gap 11 (6-14) Blood Urea Nitrogen 40 mg/dL (7-20) Creatinine 2.1 mg/dL (0.6-1.0) Estimated GFR (Cockcroft-Gault) 31.7 Glucose Level 115 mg/dL (70-99) Calcium Level 8.1 mg/dL (8.5-10.1) Phosphorus Level 3.9 mg/dL (2.6-4.7) Magnesium Level 2.2 mg/dL (1.8-2.4) Test 11/19/20 01:20 11/19/20 06:20 11/19/20 08:05 White Blood Count 18.4 x10^3/uL (4.0-11.0) 16.6 x10^3/uL (4.0-11.0) Red Blood Count 3.86 x10^6/uL (3.50-5.40) 3.71 x10^6/uL (3.50-5.40) Hemoglobin 7.5 g/dL (12.0-15.5) 7.2 g/dL (12.0-15.5) Hematocrit 25.3 % (36.0-47.0) 23.9 % (36.0-47.0) Mean Corpuscular Volume 66 fL (79-100) 64 fL (79-100) Mean Corpuscular Hemoglobin 19 pg (25-35) 19 pg (25-35) Mean Corpuscular Hemoglobin Concent 30 g/dL (31-37) 30 g/dL (31-37) Red Cell Distribution Width 25.6 % (11.5-14.5) 25.1 % (11.5-14.5) Platelet Count 163 x10^3/uL (140-400) 148 x10^3/uL (140-400) Neutrophils (%) (Auto) 91 % (31-73) 90 % (31-73) Lymphocytes (%) (Auto) 4 % (24-48) 4 % (24-48) Monocytes (%) (Auto) 6 % (0-9) 6 % (0-9) Eosinophils (%) (Auto) 0 % (0-3) 0 % (0-3) Basophils (%) (Auto) 0 % (0-3) 0 % (0-3) Neutrophils # (Auto) 16.7 x10^3/uL (1.8-7.7) 14.9 x10^3/uL (1.8-7.7) Lymphocytes # (Auto) 0.6 x10^3/uL (1.0-4.8) 0.6 x10^3/uL (1.0-4.8) Monocytes # (Auto) 1.0 x10^3/uL (0.0-1.1) 1.0 x10^3/uL (0.0-1.1) Eosinophils # (Auto) 0.0 x10^3/uL (0.0-0.7) 0.0 x10^3/uL (0.0-0.7) Basophils # (Auto) 0.0 x10^3/uL (0.0-0.2) 0.0 x10^3/uL (0.0-0.2) Sodium Level 132 mmol/L (136-145) 134 mmol/L (136-145) Potassium Level 4.4 mmol/L (3.5-5.1) 3.9 mmol/L (3.5-5.1) Chloride Level 98 mmol/L (98-107) 100 mmol/L (98-107) Carbon Dioxide Level 23 mmol/L (21-32) 24 mmol/L (21-32) Anion Gap 11 (6-14) 10 (6-14) Blood Urea Nitrogen 32 mg/dL (7-20) 26 mg/dL (7-20) Creatinine 1.7 mg/dL (0.6-1.0) 1.5 mg/dL (0.6-1.0) Estimated GFR (Cockcroft-Gault) 40.5 46.8 Glucose Level 84 mg/dL (70-99) 97 mg/dL (70-99) Calcium Level 8.0 mg/dL (8.5-10.1) 7.9 mg/dL (8.5-10.1) Phosphorus Level 2.9 mg/dL (2.6-4.7) 2.4 mg/dL (2.6-4.7) Magnesium Level 2.3 mg/dL (1.8-2.4) 2.3 mg/dL (1.8-2.4) Creatine Kinase 357 U/L (26-192) BUN/Creatinine Ratio 17 (6-20) Total Bilirubin 5.2 mg/dL (0.2-1.0) Aspartate Amino Transf (AST/SGOT) 242 U/L (15-37) Alanine Aminotransferase (ALT/SGPT) 98 U/L (14-59) Alkaline Phosphatase 107 U/L (46-116) Total Protein 5.4 g/dL (6.4-8.2) Albumin 2.3 g/dL (3.4-5.0) Albumin/Globulin Ratio 0.7 (1.0-1.7) O2 Saturation 99 % (92-99) Arterial Blood pH 7.53 (7.35-7.45) Arterial Blood pCO2 at Patient Temp 29 mmHg (35-46) Arterial Blood pO2 at Patient Temp 179 mmHg (75-108) Arterial Blood HCO3 24 mmol/L (21-28) Arterial Blood Base Excess 1 mmol/L (-3-3) FiO2 50 Problem List Problems Medical Problems: (1) KENNETH (acute kidney injury) Status: Acute (2) Atrial fibrillation with RVR Status: Acute (3) CHF (congestive heart failure) Status: Acute (4) Hypoglycemia Status: Acute (5) Pneumonia Status: Acute Assessment/Plan Benign-appearing abdomen ileus secondary to pneumonia and multisystem failure Continue OG suction No surgical plans Defer further treatment to cardiology nephrology pulmonology will follow Justicifation of Admission Dx: Justifications for Admission: Justification of Admission Dx: Yes CHF: Cardiac Arrhythmias SHRUTHI WALLS MD Nov 19, 2020 08:42
--- NOTE | 2020-11-19 08:45 | EKG ---
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
[2020-11-19] MEDS: TRANEXAMIC ACID in NS IVPB 50 ML INJ SCH ×2 (08:57→20:49)
[2020-11-19] MEDS: MEROPENEM 1 GM in IV NORMAL SALINE 100ML 100 ML IV SCH ×2 (08:57→20:50)
[2020-11-19] MEDS ORDERED: MEROPENEM 500 MG in IV NORMAL SALINE 50ML 50 ML IV SCH (09:00)
[2020-11-19] MEDS: CHLORHEXIDINE 0.12% 15 ML MOUTHWASH. MM SCH (09:00)
--- NOTE | 2020-11-19 09:41 | PDOC ---
Infectious Disease Note Subjective: Subjective Patient intubated /sedated Off pressure support Undergoing CRRT On Caridad barron Discussed with RN Vital Signs: Vital Signs Vital Signs Date Time Temp Pulse Resp B/P (MAP) Pulse Ox O2 Delivery O2 Flow Rate FiO2 11/19/20 09:00 95 16 103/61 (75) 100 Ventilator 11/19/20 08:00 97.2 97.2 Physical Exam: PHYSICAL EXAM GENERAL: Intubated/sedated HEENT ETT/OGT tube present Neck Right IJ, left HDC, clean LUNGS: Bibasilar Rales HEART: Irregular. ABDOMEN: Mildly distended hypoactive bowel sounds EXTREMITIES: edema bilaterally. NEUROLOGIC: Intubated right femoral arterial line present DERM mottled skin Medications: Inpatient Meds: Medications reviewed. Labs: Lab Laboratory Tests Test 11/18/20 10:20 11/18/20 10:50 11/18/20 15:20 11/18/20 18:30 O2 Saturation 100 % (92-99) 99 % (92-99) Arterial Blood pH 7.32 (7.35-7.45) 7.39 (7.35-7.45) Arterial Blood pCO2 at Patient Temp 31 mmHg (35-46) 30 mmHg (35-46) Arterial Blood pO2 at Patient Temp 266 mmHg (75-108) 216 mmHg (75-108) Arterial Blood HCO3 16 mmol/L (21-28) 18 mmol/L (21-28) Arterial Blood Base Excess -10 mmol/L (-3-3) -6 mmol/L (-3-3) FiO2 100 70 Hemoglobin 8.0 g/dL (12.0-15.5) 8.2 g/dL (12.0-15.5) Hematocrit 28.2 % (36.0-47.0) 27.1 % (36.0-47.0) Mean Corpuscular Hemoglobin Concent 29 g/dL (31-37) 30 g/dL (31-37) White Blood Count 26.5 x10^3/uL (4.0-11.0) Red Blood Count 4.15 x10^6/uL (3.50-5.40) Mean Corpuscular Volume 65 fL (79-100) Mean Corpuscular Hemoglobin 20 pg (25-35) Red Cell Distribution Width 25.2 % (11.5-14.5) Platelet Count 192 x10^3/uL (140-400) Neutrophils (%) (Auto) 88 % (31-73) Lymphocytes (%) (Auto) 6 % (24-48) Monocytes (%) (Auto) 5 % (0-9) Eosinophils (%) (Auto) 0 % (0-3) Basophils (%) (Auto) 1 % (0-3) Neutrophils # (Auto) 23.3 x10^3/uL (1.8-7.7) Lymphocytes # (Auto) 1.7 x10^3/uL (1.0-4.8) Monocytes # (Auto) 1.2 x10^3/uL (0.0-1.1) Eosinophils # (Auto) 0.0 x10^3/uL (0.0-0.7) Basophils # (Auto) 0.2 x10^3/uL (0.0-0.2) Sodium Level 130 mmol/L (136-145) Potassium Level 4.4 mmol/L (3.5-5.1) Chloride Level 96 mmol/L (98-107) Carbon Dioxide Level 23 mmol/L (21-32) Anion Gap 11 (6-14) Blood Urea Nitrogen 40 mg/dL (7-20) Creatinine 2.1 mg/dL (0.6-1.0) Estimated GFR (Cockcroft-Gault) 31.7 Glucose Level 115 mg/dL (70-99) Calcium Level 8.1 mg/dL (8.5-10.1) Phosphorus Level 3.9 mg/dL (2.6-4.7) Magnesium Level 2.2 mg/dL (1.8-2.4) Test 11/19/20 01:20 11/19/20 06:20 11/19/20 08:05 White Blood Count 18.4 x10^3/uL (4.0-11.0) 16.6 x10^3/uL (4.0-11.0) Red Blood Count 3.86 x10^6/uL (3.50-5.40) 3.71 x10^6/uL (3.50-5.40) Hemoglobin 7.5 g/dL (12.0-15.5) 7.2 g/dL (12.0-15.5) Hematocrit 25.3 % (36.0-47.0) 23.9 % (36.0-47.0) Mean Corpuscular Volume 66 fL (79-100) 64 fL (79-100) Mean Corpuscular Hemoglobin 19 pg (25-35) 19 pg (25-35) Mean Corpuscular Hemoglobin Concent 30 g/dL (31-37) 30 g/dL (31-37) Red Cell Distribution Width 25.6 % (11.5-14.5) 25.1 % (11.5-14.5) Platelet Count 163 x10^3/uL (140-400) 148 x10^3/uL (140-400) Neutrophils (%) (Auto) 91 % (31-73) 90 % (31-73) Lymphocytes (%) (Auto) 4 % (24-48) 4 % (24-48) Monocytes (%) (Auto) 6 % (0-9) 6 % (0-9) Eosinophils (%) (Auto) 0 % (0-3) 0 % (0-3) Basophils (%) (Auto) 0 % (0-3) 0 % (0-3) Neutrophils # (Auto) 16.7 x10^3/uL (1.8-7.7) 14.9 x10^3/uL (1.8-7.7) Lymphocytes # (Auto) 0.6 x10^3/uL (1.0-4.8) 0.6 x10^3/uL (1.0-4.8) Monocytes # (Auto) 1.0 x10^3/uL (0.0-1.1) 1.0 x10^3/uL (0.0-1.1) Eosinophils # (Auto) 0.0 x10^3/uL (0.0-0.7) 0.0 x10^3/uL (0.0-0.7) Basophils # (Auto) 0.0 x10^3/uL (0.0-0.2) 0.0 x10^3/uL (0.0-0.2) Sodium Level 132 mmol/L (136-145) 134 mmol/L (136-145) Potassium Level 4.4 mmol/L (3.5-5.1) 3.9 mmol/L (3.5-5.1) Chloride Level 98 mmol/L (98-107) 100 mmol/L (98-107) Carbon Dioxide Level 23 mmol/L (21-32) 24 mmol/L (21-32) Anion Gap 11 (6-14) 10 (6-14) Blood Urea Nitrogen 32 mg/dL (7-20) 26 mg/dL (7-20) Creatinine 1.7 mg/dL (0.6-1.0) 1.5 mg/dL (0.6-1.0) Estimated GFR (Cockcroft-Gault) 40.5 46.8 Glucose Level 84 mg/dL (70-99) 97 mg/dL (70-99) Calcium Level 8.0 mg/dL (8.5-10.1) 7.9 mg/dL (8.5-10.1) Phosphorus Level 2.9 mg/dL (2.6-4.7) 2.4 mg/dL (2.6-4.7) Magnesium Level 2.3 mg/dL (1.8-2.4) 2.3 mg/dL (1.8-2.4) Creatine Kinase 357 U/L (26-192) BUN/Creatinine Ratio 17 (6-20) Total Bilirubin 5.2 mg/dL (0.2-1.0) Aspartate Amino Transf (AST/SGOT) 242 U/L (15-37) Alanine Aminotransferase (ALT/SGPT) 98 U/L (14-59) Alkaline Phosphatase 107 U/L (46-116) Total Protein 5.4 g/dL (6.4-8.2) Albumin 2.3 g/dL (3.4-5.0) Albumin/Globulin Ratio 0.7 (1.0-1.7) O2 Saturation 99 % (92-99) Arterial Blood pH 7.53 (7.35-7.45) Arterial Blood pCO2 at Patient Temp 29 mmHg (35-46) Arterial Blood pO2 at Patient Temp 179 mmHg (75-108) Arterial Blood HCO3 24 mmol/L (21-28) Arterial Blood Base Excess 1 mmol/L (-3-3) FiO2 50 Objective: Assessment: Patient currently in multiorgan failure 1. Severe sepsis, etiology appears likely GI 2. Leukocytosis and lactic acidosis. Source appears GI,? ischemic colitis 3. Acute kidney injury with severe metabolic acidosis. 4. Abdominal pain, intermittent nausea.Colitis on CT abdomen, ischemic colitis 5. Atrial fibrillation/flutter. 6. Acute on chronic congestive heart failure. 7. Coagulopathy. 8. Abnormal liver function tests , hyperbilirubinemia 9. Acute respiratory failure status post intubation 10. Pulmonary hypertension. 11. Valvular insufficiency. MR, TR, hepatic congestion 12. History of PFO closure. COVID-19 negative Plan: Plan of Care Continue Dapto, Merrem, micafungin and Zyvox Monitor labs and cultures. Continue supportive care. Critically ill Prognosis very poor Discussed with nursing staff MEGAN MEHTA MD Nov 19, 2020 09:41
--- NOTE | 2020-11-19 10:41 | PDOC ---
DATE OF SERVICE DATE: 11/19/20 TIME: 10:39 SUBJECTIVE ROS On CRRT, No concerns voiced by nursing .remains Intubated OBJECTIVE Vital Signs Vital Signs Date Time Temp Pulse Resp B/P (MAP) Pulse Ox O2 Delivery O2 Flow Rate FiO2 11/19/20 10:00 108 20 105/68 (80) 99 Ventilator 11/19/20 08:00 97.2 97.2 I & 0 Intake and Output 11/19/20 07:00 Intake Total 3251.9 ml Output Total 605 ml Balance 2646.9 ml IV Total 3251.9 ml Output Urine Total 205 ml Gastric Drainage Total 400 ml PHYSICAL EXAM Physical Exam General: Intubated, sedated HEENT: OG, EG + Neck supple Lungs: diminished bases Heart: S1S2 Abdomen: Soft, Extremities: Trace Bilat LE edema + Neuro: sedated, intubated Sky + Skin No rash DIAGNOSIS/ASSESSMENT Assessment & Plan KENNETH - Oligoanuric now , ATN CRRT started on 11/18, tolerating well, discussed treatment plan with nursing CT scan- at presentation unremarkable Kidneys and bladder , No Micr hematuria, Overt Proteinuria +, No hx of NSAID's use per patient , No Hx of CKD (KENNETH last hosp - resolved ) Supportive care, Strict I/O, monitor HyperKalemia- was on PO KCL , resolved Abdominal pain POA - no surgery planned per GS Sepsis- elevated Lactic acid Metabolic acidosis POA- 2/2 Lactic acidosis, Bicarb Normal on CRRT Elevated LFT's Acute respiratory failure - Moderate right and small left pleural effusion with hazy adjacent airspace disease may relate to pulmonary edema. Acute on chronic CHF exacerbation last echo in July 2020 showed EF of 60-65% and severely dilated right ventricle Valvular insufficiency: notable for moderate MR and mod to severe TR Hx of of open ASD closure: 2014. Stable per recent SAMMY Severe symptomatic hypoglycemia POA History of atrial fibrillation/atrial flutter Secondary cor pulmonale due to pulmonary hypertension Anemia of chronic disease- Fe def , Tsat 4, Defer to primary COMMENT/RELEVANT DATA Meds Current Medications Medications (Trade) Dose Ordered Sig/Kailey Start Time Stop Time Status Last Admin Dose Admin Acetaminophen (Tylenol) 650 mg PRN Q4HRS PRN 11/15/20 16:15 Albumin Human 500 ml @ 125 mls/hr 1X ONCE 11/17/20 15:15 11/17/20 19:14 DC 2/11/21 15:44 125 MLS/HR Albuterol/ Ipratropium (Duoneb) 3 ml RTQID 11/17/20 09:00 11/19/20 07:58 3 ML Amiodarone HCl (Cordarone) 200 mg DAILY 11/16/20 09:00 11/15/20 16:38 DC Aspirin (Tatianna Aspirin) 325 mg DAILY 11/16/20 09:00 11/15/20 16:38 DC Budesonide (Pulmicort) 0.5 mg RTBID 11/17/20 09:00 11/19/20 07:58 0.5 MG Calcium Carbonate/ Glycine (Tums) 1,000 mg PRN Q4HRS PRN 11/16/20 21:30 11/16/20 21:37 1,000 MG Calcium Gluconate 1000 mg/Sodium Chloride 110 ml @ 220 mls/hr 1X ONCE 11/17/20 17:15 11/17/20 17:44 DC 11/17/20 17:36 220 MLS/HR Cefepime HCl (Maxipime) 2 gm Q24H 11/15/20 17:00 11/17/20 11:51 DC 11/16/20 16:30 2 GM Chlorhexidine Gluconate (Peridex) 15 ml BID 11/17/20 21:00 11/19/20 09:00 15 ML Citalopram Hydrobromide (CeleXA) 40 mg DAILY 11/16/20 09:00 11/17/20 09:23 40 MG Daptomycin 390 mg/ Sodium Chloride 50 ml @ 100 mls/hr Q48H 11/20/20 13:00 11/18/20 16:23 DC Daptomycin 500 mg/ Sodium Chloride 50 ml @ 100 mls/hr Q48H 11/19/20 21:00 Dextrose (Dextrose 50%-Water Syringe) 12.5 gm PRN Q15MIN PRN 11/15/20 16:15 Dextrose/Sodium Chloride 1,000 ml @ 50 mls/hr Q20H 11/15/20 16:00 11/17/20 09:28 50 MLS/HR Digoxin (Lanoxin) 500 mcg 1X ONCE 11/17/20 15:30 11/17/20 15:31 DC 11/17/20 15:43 500 MCG Docusate Sodium (Colace) 100 mg PRN DAILY PRN 11/15/20 16:15 Epinephrine HCl 10 mg/Sodium Chloride 250 ml @ 11.85 mls/ hr CONT PRN 11/17/20 17:30 11/17/20 22:09 47.4 MLS/HR Epinephrine HCl 5 mg/Sodium Chloride 255 ml @ 24.266 mls/ hr CONT PRN 11/17/20 14:45 11/17/20 20:00 DC 11/17/20 19:44 121.328 MLS/HR Etomidate (Amidate) 12 mg 1X ONCE 11/17/20 14:15 11/17/20 14:16 DC 11/17/20 14:15 12 MG Fentanyl Citrate (Fentanyl 2ml Vial) 50 mcg PRN Q1HR PRN 11/17/20 14:00 Fluticasone Propionate (Flonase) 2 spray DAILY 11/16/20 09:00 11/17/20 08:37 2 SPRAY Furosemide (Lasix) 40 mg 1X ONCE 11/16/20 14:00 11/16/20 14:01 DC 11/16/20 14:08 40 MG Gabapentin (Neurontin) 600 mg BID 11/15/20 21:00 11/17/20 09:23 600 MG Heparin Sodium (Porcine) (Heparin Sodium) 5,000 unit Q12HR 11/15/20 21:00 11/15/20 16:17 DC Hydrocortisone Sodium Succinate (Solu-CORTEF) 100 mg Q8HRS 11/17/20 22:00 11/19/20 06:14 100 MG Lidocaine HCl (Buffered Lidocaine 1%) 6 ml 1X ONCE 11/18/20 09:45 11/18/20 09:46 DC 11/18/20 09:53 5 ML Lidocaine HCl (Xylocaine 2% Topical 5gm Tube) 5 makenna STK-MED ONCE 11/16/20 12:00 11/17/20 15:35 DC Lidocaine HCl (Xylocaine-Mpf 1% 2ml Vial) 2 ml 1X ONCE 11/17/20 12:00 11/17/20 12:07 DC Linezolid/Dextrose 300 ml @ 300 mls/hr Q12HR 11/17/20 18:00 11/19/20 08:58 300 MLS/HR Meropenem 1 gm/ Sodium Chloride 100 ml @ 200 mls/hr Q12HR 11/18/20 21:00 11/19/20 08:57 200 MLS/HR Meropenem 500 mg/ Sodium Chloride 50 ml @ 100 mls/hr DAILY 11/19/20 09:00 11/18/20 16:16 DC Metoprolol Tartrate (Lopressor) 50 mg BID 11/16/20 09:15 11/17/20 12:56 DC 11/17/20 09:24 50 MG Metronidazole 100 ml @ 100 mls/hr Q12HR 11/15/20 21:00 11/17/20 11:51 DC 11/17/20 08:41 100 MLS/HR Micafungin Sodium 100 mg/Dextrose 100 ml @ 100 mls/hr Q24H 11/17/20 12:30 11/18/20 12:05 100 MLS/HR Midazolam HCl 100 ml @ 0 mls/hr CONT PRN 11/17/20 14:00 11/18/20 22:16 10 MLS/HR Morphine Sulfate (Morphine Sulfate) 4 mg PRN Q1HR PRN 11/17/20 14:00 Norepinephrine Bitartrate 32 mg/ Dextrose 250 ml @ 3.703 mls/ hr CONT PRN 11/17/20 13:30 11/18/20 03:50 14.813 MLS/HR Norepinephrine Bitartrate 8 mg/ Dextrose 258 ml @ 15.344 mls/ hr CONT PRN 11/17/20 11:15 11/17/20 14:30 DC 11/17/20 11:32 14.8 MLS/HR Ondansetron HCl (Zofran) 4 mg PRN Q6HRS PRN 11/15/20 16:15 Pantoprazole Sodium (PROTONIX VIAL for IV PUSH) 40 mg DAILYAC 11/18/20 07:30 11/19/20 08:08 40 MG Pantoprazole Sodium (Protonix) 40 mg DAILYAC 11/16/20 07:30 11/17/20 14:53 DC 11/17/20 08:36 40 MG Phenylephrine HCl 50 mg/Sodium Chloride 255 ml @ 12.133 mls/ hr CONT PRN 11/17/20 13:30 Piperacillin Sod/ Tazobactam Sod 3.375 gm/Sodium Chloride 50 ml @ 100 mls/hr 1X ONCE 11/15/20 13:00 11/15/20 13:29 DC 11/15/20 13:05 100 MLS/HR Potassium Chloride 15 meq/ Bicarbonate Dialysis Soln w/ out KCl 5,007.5 ml @ 1,250 mls/ hr Q4H1M 11/18/20 11:00 11/19/20 09:27 1,250 MLS/HR Potassium Chloride (Klor-Con) 60 meq 1X ONCE 11/16/20 14:00 11/16/20 14:01 DC 11/16/20 14:06 60 MEQ Prothrombin Complex Concent (Human) 2000 unit/ Miscellaneous 80 ml @ 160 mls/hr 1X ONCE 11/18/20 14:30 11/18/20 14:59 DC 11/18/20 14:48 160 MLS/HR Ringer's Solution 1,000 ml @ 1,000 mls/hr Q1H ONCE 11/17/20 14:00 11/17/20 14:59 DC 11/17/20 15:45 1,000 MLS/HR Sennosides (Senna) 17.2 mg PRN BID PRN 11/15/20 16:15 Sodium Bicarbonate 150 meq/Dextrose 1,150 ml @ 125 mls/hr Q9H12M ONCE 11/17/20 11:30 11/17/20 20:41 DC 11/17/20 11:26 125 MLS/HR Sodium Bicarbonate (Sodium Bicarb Adult 8.4% Syr) 100 meq 1X ONCE 11/17/20 14:15 11/17/20 14:16 DC 11/17/20 14:15 100 MEQ Succinylcholine Chloride (Anectine) 100 mg 1X ONCE 11/17/20 14:15 11/17/20 14:16 DC 11/17/20 14:15 100 MG Thiamine Mononitrate (Vitamin B-1) 300 mg TID 11/17/20 14:00 Thiamine HCl 300 mg/Dextrose 53 ml @ 102 mls/hr Q8HRS 11/15/20 22:00 11/17/20 09:46 DC 11/17/20 06:17 102 MLS/HR Tranexamic Acid 50 ml @ 50 mls/hr Q12HR 11/18/20 13:00 11/19/20 08:57 50 MLS/HR Vancomycin HCl (Vanco Per Pharmacy) 1 each PRN DAILY PRN 11/15/20 16:15 11/16/20 11:05 DC Vancomycin HCl 2 gm/Sodium Chloride 500 ml @ 250 mls/hr 1X ONCE 11/15/20 13:00 11/15/20 14:59 DC 11/15/20 13:37 250 MLS/HR Vasopressin 20 unit/Dextrose 101 ml @ 12 mls/hr CONT PRN 11/17/20 13:30 UNV Vecuronium [place] (Norcuron Bolus) 6 mg PRN Q2HR PRN 11/17/20 20:00 11/17/20 22:11 6 MG Lab Laboratory Tests Test 11/18/20 10:50 11/18/20 15:20 11/18/20 18:30 11/19/20 01:20 Hemoglobin 8.0 g/dL (12.0-15.5) 8.2 g/dL (12.0-15.5) 7.5 g/dL (12.0-15.5) Hematocrit 28.2 % (36.0-47.0) 27.1 % (36.0-47.0) 25.3 % (36.0-47.0) Mean Corpuscular Hemoglobin Concent 29 g/dL (31-37) 30 g/dL (31-37) 30 g/dL (31-37) O2 Saturation 99 % (92-99) Arterial Blood pH 7.39 (7.35-7.45) Arterial Blood pCO2 at Patient Temp 30 mmHg (35-46) Arterial Blood pO2 at Patient Temp 216 mmHg (75-108) Arterial Blood HCO3 18 mmol/L (21-28) Arterial Blood Base Excess -6 mmol/L (-3-3) FiO2 70 White Blood Count 26.5 x10^3/uL (4.0-11.0) 18.4 x10^3/uL (4.0-11.0) Red Blood Count 4.15 x10^6/uL (3.50-5.40) 3.86 x10^6/uL (3.50-5.40) Mean Corpuscular Volume 65 fL (79-100) 66 fL (79-100) Mean Corpuscular Hemoglobin 20 pg (25-35) 19 pg (25-35) Red Cell Distribution Width 25.2 % (11.5-14.5) 25.6 % (11.5-14.5) Platelet Count 192 x10^3/uL (140-400) 163 x10^3/uL (140-400) Neutrophils (%) (Auto) 88 % (31-73) 91 % (31-73) Lymphocytes (%) (Auto) 6 % (24-48) 4 % (24-48) Monocytes (%) (Auto) 5 % (0-9) 6 % (0-9) Eosinophils (%) (Auto) 0 % (0-3) 0 % (0-3) Basophils (%) (Auto) 1 % (0-3) 0 % (0-3) Neutrophils # (Auto) 23.3 x10^3/uL (1.8-7.7) 16.7 x10^3/uL (1.8-7.7) Lymphocytes # (Auto) 1.7 x10^3/uL (1.0-4.8) 0.6 x10^3/uL (1.0-4.8) Monocytes # (Auto) 1.2 x10^3/uL (0.0-1.1) 1.0 x10^3/uL (0.0-1.1) Eosinophils # (Auto) 0.0 x10^3/uL (0.0-0.7) 0.0 x10^3/uL (0.0-0.7) Basophils # (Auto) 0.2 x10^3/uL (0.0-0.2) 0.0 x10^3/uL (0.0-0.2) Sodium Level 130 mmol/L (136-145) 132 mmol/L (136-145) Potassium Level 4.4 mmol/L (3.5-5.1) 4.4 mmol/L (3.5-5.1) Chloride Level 96 mmol/L (98-107) 98 mmol/L (98-107) Carbon Dioxide Level 23 mmol/L (21-32) 23 mmol/L (21-32) Anion Gap 11 (6-14) 11 (6-14) Blood Urea Nitrogen 40 mg/dL (7-20) 32 mg/dL (7-20) Creatinine 2.1 mg/dL (0.6-1.0) 1.7 mg/dL (0.6-1.0) Estimated GFR (Cockcroft-Gault) 31.7 40.5 Glucose Level 115 mg/dL (70-99) 84 mg/dL (70-99) Calcium Level 8.1 mg/dL (8.5-10.1) 8.0 mg/dL (8.5-10.1) Phosphorus Level 3.9 mg/dL (2.6-4.7) 2.9 mg/dL (2.6-4.7) Magnesium Level 2.2 mg/dL (1.8-2.4) 2.3 mg/dL (1.8-2.4) Creatine Kinase 357 U/L (26-192) Test 11/19/20 06:20 11/19/20 08:05 White Blood Count 16.6 x10^3/uL (4.0-11.0) Red Blood Count 3.71 x10^6/uL (3.50-5.40) Hemoglobin 7.2 g/dL (12.0-15.5) Hematocrit 23.9 % (36.0-47.0) Mean Corpuscular Volume 64 fL (79-100) Mean Corpuscular Hemoglobin 19 pg (25-35) Mean Corpuscular Hemoglobin Concent 30 g/dL (31-37) Red Cell Distribution Width 25.1 % (11.5-14.5) Platelet Count 148 x10^3/uL (140-400) Neutrophils (%) (Auto) 90 % (31-73) Lymphocytes (%) (Auto) 4 % (24-48) Monocytes (%) (Auto) 6 % (0-9) Eosinophils (%) (Auto) 0 % (0-3) Basophils (%) (Auto) 0 % (0-3) Neutrophils # (Auto) 14.9 x10^3/uL (1.8-7.7) Lymphocytes # (Auto) 0.6 x10^3/uL (1.0-4.8) Monocytes # (Auto) 1.0 x10^3/uL (0.0-1.1) Eosinophils # (Auto) 0.0 x10^3/uL (0.0-0.7) Basophils # (Auto) 0.0 x10^3/uL (0.0-0.2) Sodium Level 134 mmol/L (136-145) Potassium Level 3.9 mmol/L (3.5-5.1) Chloride Level 100 mmol/L (98-107) Carbon Dioxide Level 24 mmol/L (21-32) Anion Gap 10 (6-14) Blood Urea Nitrogen 26 mg/dL (7-20) Creatinine 1.5 mg/dL (0.6-1.0) Estimated GFR (Cockcroft-Gault) 46.8 BUN/Creatinine Ratio 17 (6-20) Glucose Level 97 mg/dL (70-99) Calcium Level 7.9 mg/dL (8.5-10.1) Phosphorus Level 2.4 mg/dL (2.6-4.7) Magnesium Level 2.3 mg/dL (1.8-2.4) Total Bilirubin 5.2 mg/dL (0.2-1.0) Aspartate Amino Transf (AST/SGOT) 242 U/L (15-37) Alanine Aminotransferase (ALT/SGPT) 98 U/L (14-59) Alkaline Phosphatase 107 U/L (46-116) Total Protein 5.4 g/dL (6.4-8.2) Albumin 2.3 g/dL (3.4-5.0) Albumin/Globulin Ratio 0.7 (1.0-1.7) O2 Saturation 99 % (92-99) Arterial Blood pH 7.53 (7.35-7.45) Arterial Blood pCO2 at Patient Temp 29 mmHg (35-46) Arterial Blood pO2 at Patient Temp 179 mmHg (75-108) Arterial Blood HCO3 24 mmol/L (21-28) Arterial Blood Base Excess 1 mmol/L (-3-3) FiO2 50 Results All relevant outside records, renal labs, imaging studies, telemetry/EKG's were reviewed. Justicifation of Admission Dx: Justifications for Admission: Justification of Admission Dx: Yes CHF: Cardiac Arrhythmias FRANCO SETHI MD Nov 19, 2020 10:41
[2020-11-19] MEDS: MIDAZOLAM 100mg/100ml NS BAG 100 ML IV PRN ×2 (11:17→22:24)
--- NOTE | 2020-11-19 11:32 | PDOC ---
PULMONARY PROGRESS NOTES DATE: 11/19/20 TIME: 11:22 Subjective Patient intubated 11/17 remains on vent support 50% on CRRT off pressors S/P tranexamic acid No other concerns overnight Vitals Vital Signs Date Time Temp Pulse Resp B/P (MAP) Pulse Ox O2 Delivery O2 Flow Rate FiO2 11/19/20 11:17 22 96 Ventilator 11/19/20 11:00 109 103/66 (78) 11/19/20 08:00 97.2 97.2 Comments Intubated Lungs: Clear Cardiovascular: S1, S2 Abdomen: Soft Neuro Exam: Alert Extremities: No Edema Skin: Warm, Dry Labs Laboratory Tests Test 11/17/20 13:20 11/17/20 13:34 11/17/20 13:38 11/17/20 13:48 White Blood Count 25.0 x10^3/uL (4.0-11.0) Red Blood Count 4.51 x10^6/uL (3.50-5.40) Hemoglobin 8.9 g/dL (12.0-15.5) Hematocrit 31.0 % (36.0-47.0) Mean Corpuscular Volume 69 fL (79-100) Mean Corpuscular Hemoglobin 20 pg (25-35) Mean Corpuscular Hemoglobin Concent 29 g/dL (31-37) Red Cell Distribution Width 26.0 % (11.5-14.5) Platelet Count 327 x10^3/uL (140-400) O2 Saturation 16 % (92-99) Arterial Blood pH 7.21 (7.35-7.45) Arterial Blood pCO2 at Patient Temp 26 mmHg (35-46) Arterial Blood pO2 at Patient Temp < 42 mmHg (75-108) Arterial Blood HCO3 10 mmol/L (21-28) Arterial Blood Base Excess -16 mmol/L (-3-3) Oxyhemoglobin 15.9 % Methemoglobin 2.3 % (0.0-1.9) Carbon Monoxide, Quantitative 0.3 % (0.0-1.9) FiO2 44% 6l nc Lactic Acid Level 15.6 mmol/L (0.4-2.0) Sodium Level 130 mmol/L (136-145) Potassium Level 6.0 mmol/L (3.5-5.1) Chloride Level 90 mmol/L (98-107) Carbon Dioxide Level 14 mmol/L (21-32) Anion Gap 26 (6-14) Blood Urea Nitrogen 50 mg/dL (7-20) Creatinine 2.7 mg/dL (0.6-1.0) Estimated GFR (Cockcroft-Gault) 23.7 BUN/Creatinine Ratio 19 (6-20) Glucose Level 83 mg/dL (70-99) Calcium Level 9.1 mg/dL (8.5-10.1) Total Bilirubin 4.6 mg/dL (0.2-1.0) Aspartate Amino Transf (AST/SGOT) 108 U/L (15-37) Alanine Aminotransferase (ALT/SGPT) 66 U/L (14-59) Alkaline Phosphatase 144 U/L (46-116) Total Protein 7.0 g/dL (6.4-8.2) Albumin 3.1 g/dL (3.4-5.0) Albumin/Globulin Ratio 0.8 (1.0-1.7) Test 11/17/20 14:00 11/17/20 18:00 11/18/20 00:01 11/18/20 04:30 Platelet Count 327 x10^3/uL (140-400) 243 x10^3/uL (140-400) Prothrombin Time 42.2 SEC (11.7-14.0) Prothromb Time International Ratio 4.3 (0.8-1.1) Activated Partial Thromboplast Time 32 SEC (24-38) Fibrinogen 315 mg/dL (200-440) D-Dimer (Senia) 13.78 ug/mlFEU (0.00-0.50) Hemoglobin 8.4 g/dL (12.0-15.5) 9.0 g/dL (12.0-15.5) 8.5 g/dL (12.0-15.5) Hematocrit 30.0 % (36.0-47.0) 31.9 % (36.0-47.0) 30.8 % (36.0-47.0) Mean Corpuscular Hemoglobin Concent 28 g/dL (31-37) 28 g/dL (31-37) 28 g/dL (31-37) White Blood Count 26.7 x10^3/uL (4.0-11.0) Red Blood Count 4.38 x10^6/uL (3.50-5.40) Mean Corpuscular Volume 70 fL (79-100) Mean Corpuscular Hemoglobin 20 pg (25-35) Red Cell Distribution Width 25.9 % (11.5-14.5) Neutrophils (%) (Auto) 82 % (31-73) Lymphocytes (%) (Auto) 12 % (24-48) Monocytes (%) (Auto) 5 % (0-9) Eosinophils (%) (Auto) 0 % (0-3) Basophils (%) (Auto) 1 % (0-3) Neutrophils # (Auto) 22.0 x10^3/uL (1.8-7.7) Lymphocytes # (Auto) 3.3 x10^3/uL (1.0-4.8) Monocytes # (Auto) 1.3 x10^3/uL (0.0-1.1) Eosinophils # (Auto) 0.0 x10^3/uL (0.0-0.7) Basophils # (Auto) 0.1 x10^3/uL (0.0-0.2) Segmented Neutrophils % 85 % (35-66) Band Neutrophils % 8 % (0-9) Lymphocytes % 3 % (24-48) Monocytes % 4 % (0-10) Nucleated Red Blood Cells 1 Platelet Estimate Adequate (ADEQUATE) Polychromasia Slight Poikilocytosis Present Anisocytosis Mod Microcytosis Present Target Cells Occ Ovalocytes Few [place] Cells Acanthocytes Few RBC Morphology Bizarre Forms Few Sodium Level 130 mmol/L (136-145) Potassium Level 5.2 mmol/L (3.5-5.1) Chloride Level 93 mmol/L (98-107) Carbon Dioxide Level 15 mmol/L (21-32) Anion Gap 22 (6-14) Blood Urea Nitrogen 55 mg/dL (7-20) Creatinine 3.0 mg/dL (0.6-1.0) Estimated GFR (Cockcroft-Gault) 21.0 Glucose Level 100 mg/dL (70-99) Calcium Level 8.6 mg/dL (8.5-10.1) Test 11/18/20 06:30 11/18/20 07:35 11/18/20 10:20 11/18/20 10:50 Prothrombin Time 61.7 SEC (11.7-14.0) Prothromb Time International Ratio 6.9 (0.8-1.1) Fibrinogen 226 mg/dL (200-440) Total Bilirubin 4.5 mg/dL (0.2-1.0) Direct Bilirubin 3.6 mg/dL (0.0-0.2) Aspartate Amino Transf (AST/SGOT) 240 U/L (15-37) Alanine Aminotransferase (ALT/SGPT) 88 U/L (14-59) Alkaline Phosphatase 131 U/L (46-116) Total Protein 6.1 g/dL (6.4-8.2) Albumin 2.8 g/dL (3.4-5.0) Hemoglobin 8.4 g/dL (12.0-15.5) 8.0 g/dL (12.0-15.5) Hematocrit 29.9 % (36.0-47.0) 28.2 % (36.0-47.0) Mean Corpuscular Hemoglobin Concent 28 g/dL (31-37) 29 g/dL (31-37) O2 Saturation 100 % (92-99) Arterial Blood pH 7.32 (7.35-7.45) Arterial Blood pCO2 at Patient Temp 31 mmHg (35-46) Arterial Blood pO2 at Patient Temp 266 mmHg (75-108) Arterial Blood HCO3 16 mmol/L (21-28) Arterial Blood Base Excess -10 mmol/L (-3-3) FiO2 100 Test 11/18/20 15:20 11/18/20 18:30 11/19/20 01:20 11/19/20 06:20 O2 Saturation 99 % (92-99) Arterial Blood pH 7.39 (7.35-7.45) Arterial Blood pCO2 at Patient Temp 30 mmHg (35-46) Arterial Blood pO2 at Patient Temp 216 mmHg (75-108) Arterial Blood HCO3 18 mmol/L (21-28) Arterial Blood Base Excess -6 mmol/L (-3-3) FiO2 70 White Blood Count 26.5 x10^3/uL (4.0-11.0) 18.4 x10^3/uL (4.0-11.0) 16.6 x10^3/uL (4.0-11.0) Red Blood Count 4.15 x10^6/uL (3.50-5.40) 3.86 x10^6/uL (3.50-5.40) 3.71 x10^6/uL (3.50-5.40) Hemoglobin 8.2 g/dL (12.0-15.5) 7.5 g/dL (12.0-15.5) 7.2 g/dL (12.0-15.5) Hematocrit 27.1 % (36.0-47.0) 25.3 % (36.0-47.0) 23.9 % (36.0-47.0) Mean Corpuscular Volume 65 fL (79-100) 66 fL (79-100) 64 fL (79-100) Mean Corpuscular Hemoglobin 20 pg (25-35) 19 pg (25-35) 19 pg (25-35) Mean Corpuscular Hemoglobin Concent 30 g/dL (31-37) 30 g/dL (31-37) 30 g/dL (31-37) Red Cell Distribution Width 25.2 % (11.5-14.5) 25.6 % (11.5-14.5) 25.1 % (11.5-14.5) Platelet Count 192 x10^3/uL (140-400) 163 x10^3/uL (140-400) 148 x10^3/uL (140-400) Neutrophils (%) (Auto) 88 % (31-73) 91 % (31-73) 90 % (31-73) Lymphocytes (%) (Auto) 6 % (24-48) 4 % (24-48) 4 % (24-48) Monocytes (%) (Auto) 5 % (0-9) 6 % (0-9) 6 % (0-9) Eosinophils (%) (Auto) 0 % (0-3) 0 % (0-3) 0 % (0-3) Basophils (%) (Auto) 1 % (0-3) 0 % (0-3) 0 % (0-3) Neutrophils # (Auto) 23.3 x10^3/uL (1.8-7.7) 16.7 x10^3/uL (1.8-7.7) 14.9 x10^3/uL (1.8-7.7) Lymphocytes # (Auto) 1.7 x10^3/uL (1.0-4.8) 0.6 x10^3/uL (1.0-4.8) 0.6 x10^3/uL (1.0-4.8) Monocytes # (Auto) 1.2 x10^3/uL (0.0-1.1) 1.0 x10^3/uL (0.0-1.1) 1.0 x10^3/uL (0.0-1.1) Eosinophils # (Auto) 0.0 x10^3/uL (0.0-0.7) 0.0 x10^3/uL (0.0-0.7) 0.0 x10^3/uL (0.0-0.7) Basophils # (Auto) 0.2 x10^3/uL (0.0-0.2) 0.0 x10^3/uL (0.0-0.2) 0.0 x10^3/uL (0.0-0.2) Sodium Level 130 mmol/L (136-145) 132 mmol/L (136-145) 134 mmol/L (136-145) Potassium Level 4.4 mmol/L (3.5-5.1) 4.4 mmol/L (3.5-5.1) 3.9 mmol/L (3.5-5.1) Chloride Level 96 mmol/L (98-107) 98 mmol/L (98-107) 100 mmol/L (98-107) Carbon Dioxide Level 23 mmol/L (21-32) 23 mmol/L (21-32) 24 mmol/L (21-32) Anion Gap 11 (6-14) 11 (6-14) 10 (6-14) Blood Urea Nitrogen 40 mg/dL (7-20) 32 mg/dL (7-20) 26 mg/dL (7-20) Creatinine 2.1 mg/dL (0.6-1.0) 1.7 mg/dL (0.6-1.0) 1.5 mg/dL (0.6-1.0) Estimated GFR (Cockcroft-Gault) 31.7 40.5 46.8 Glucose Level 115 mg/dL (70-99) 84 mg/dL (70-99) 97 mg/dL (70-99) Calcium Level 8.1 mg/dL (8.5-10.1) 8.0 mg/dL (8.5-10.1) 7.9 mg/dL (8.5-10.1) Phosphorus Level 3.9 mg/dL (2.6-4.7) 2.9 mg/dL (2.6-4.7) 2.4 mg/dL (2.6-4.7) Magnesium Level 2.2 mg/dL (1.8-2.4) 2.3 mg/dL (1.8-2.4) 2.3 mg/dL (1.8-2.4) Creatine Kinase 357 U/L (26-192) BUN/Creatinine Ratio 17 (6-20) Total Bilirubin 5.2 mg/dL (0.2-1.0) Aspartate Amino Transf (AST/SGOT) 242 U/L (15-37) Alanine Aminotransferase (ALT/SGPT) 98 U/L (14-59) Alkaline Phosphatase 107 U/L (46-116) Total Protein 5.4 g/dL (6.4-8.2) Albumin 2.3 g/dL (3.4-5.0) Albumin/Globulin Ratio 0.7 (1.0-1.7) Hepatitis B Surface Antigen Nonreactive (Nonreactive) Test 11/19/20 08:05 O2 Saturation 99 % (92-99) Arterial Blood pH 7.53 (7.35-7.45) Arterial Blood pCO2 at Patient Temp 29 mmHg (35-46) Arterial Blood pO2 at Patient Temp 179 mmHg (75-108) Arterial Blood HCO3 24 mmol/L (21-28) Arterial Blood Base Excess 1 mmol/L (-3-3) FiO2 50 Laboratory Tests Test 11/18/20 15:20 11/18/20 18:30 11/19/20 01:20 11/19/20 06:20 O2 Saturation 99 % (92-99) Arterial Blood pH 7.39 (7.35-7.45) Arterial Blood pCO2 at Patient Temp 30 mmHg (35-46) Arterial Blood pO2 at Patient Temp 216 mmHg (75-108) Arterial Blood HCO3 18 mmol/L (21-28) Arterial Blood Base Excess -6 mmol/L (-3-3) FiO2 70 White Blood Count 26.5 x10^3/uL (4.0-11.0) 18.4 x10^3/uL (4.0-11.0) 16.6 x10^3/uL (4.0-11.0) Red Blood Count 4.15 x10^6/uL (3.50-5.40) 3.86 x10^6/uL (3.50-5.40) 3.71 x10^6/uL (3.50-5.40) Hemoglobin 8.2 g/dL (12.0-15.5) 7.5 g/dL (12.0-15.5) 7.2 g/dL (12.0-15.5) Hematocrit 27.1 % (36.0-47.0) 25.3 % (36.0-47.0) 23.9 % (36.0-47.0) Mean Corpuscular Volume 65 fL (79-100) 66 fL (79-100) 64 fL (79-100) Mean Corpuscular Hemoglobin 20 pg (25-35) 19 pg (25-35) 19 pg (25-35) Mean Corpuscular Hemoglobin Concent 30 g/dL (31-37) 30 g/dL (31-37) 30 g/dL (31-37) Red Cell Distribution Width 25.2 % (11.5-14.5) 25.6 % (11.5-14.5) 25.1 % (11.5-14.5) Platelet Count 192 x10^3/uL (140-400) 163 x10^3/uL (140-400) 148 x10^3/uL (140-400) Neutrophils (%) (Auto) 88 % (31-73) 91 % (31-73) 90 % (31-73) Lymphocytes (%) (Auto) 6 % (24-48) 4 % (24-48) 4 % (24-48) Monocytes (%) (Auto) 5 % (0-9) 6 % (0-9) 6 % (0-9) Eosinophils (%) (Auto) 0 % (0-3) 0 % (0-3) 0 % (0-3) Basophils (%) (Auto) 1 % (0-3) 0 % (0-3) 0 % (0-3) Neutrophils # (Auto) 23.3 x10^3/uL (1.8-7.7) 16.7 x10^3/uL (1.8-7.7) 14.9 x10^3/uL (1.8-7.7) Lymphocytes # (Auto) 1.7 x10^3/uL (1.0-4.8) 0.6 x10^3/uL (1.0-4.8) 0.6 x10^3/uL (1.0-4.8) Monocytes # (Auto) 1.2 x10^3/uL (0.0-1.1) 1.0 x10^3/uL (0.0-1.1) 1.0 x10^3/uL (0.0-1.1) Eosinophils # (Auto) 0.0 x10^3/uL (0.0-0.7) 0.0 x10^3/uL (0.0-0.7) 0.0 x10^3/uL (0.0-0.7) Basophils # (Auto) 0.2 x10^3/uL (0.0-0.2) 0.0 x10^3/uL (0.0-0.2) 0.0 x10^3/uL (0.0-0.2) Sodium Level 130 mmol/L (136-145) 132 mmol/L (136-145) 134 mmol/L (136-145) Potassium Level 4.4 mmol/L (3.5-5.1) 4.4 mmol/L (3.5-5.1) 3.9 mmol/L (3.5-5.1) Chloride Level 96 mmol/L (98-107) 98 mmol/L (98-107) 100 mmol/L (98-107) Carbon Dioxide Level 23 mmol/L (21-32) 23 mmol/L (21-32) 24 mmol/L (21-32) Anion Gap 11 (6-14) 11 (6-14) 10 (6-14) Blood Urea Nitrogen 40 mg/dL (7-20) 32 mg/dL (7-20) 26 mg/dL (7-20) Creatinine 2.1 mg/dL (0.6-1.0) 1.7 mg/dL (0.6-1.0) 1.5 mg/dL (0.6-1.0) Estimated GFR (Cockcroft-Gault) 31.7 40.5 46.8 Glucose Level 115 mg/dL (70-99) 84 mg/dL (70-99) 97 mg/dL (70-99) Calcium Level 8.1 mg/dL (8.5-10.1) 8.0 mg/dL (8.5-10.1) 7.9 mg/dL (8.5-10.1) Phosphorus Level 3.9 mg/dL (2.6-4.7) 2.9 mg/dL (2.6-4.7) 2.4 mg/dL (2.6-4.7) Magnesium Level 2.2 mg/dL (1.8-2.4) 2.3 mg/dL (1.8-2.4) 2.3 mg/dL (1.8-2.4) Creatine Kinase 357 U/L (26-192) BUN/Creatinine Ratio 17 (6-20) Total Bilirubin 5.2 mg/dL (0.2-1.0) Aspartate Amino Transf (AST/SGOT) 242 U/L (15-37) Alanine Aminotransferase (ALT/SGPT) 98 U/L (14-59) Alkaline Phosphatase 107 U/L (46-116) Total Protein 5.4 g/dL (6.4-8.2) Albumin 2.3 g/dL (3.4-5.0) Albumin/Globulin Ratio 0.7 (1.0-1.7) Hepatitis B Surface Antigen Nonreactive (Nonreactive) Test 11/19/20 08:05 O2 Saturation 99 % (92-99) Arterial Blood pH 7.53 (7.35-7.45) Arterial Blood pCO2 at Patient Temp 29 mmHg (35-46) Arterial Blood pO2 at Patient Temp 179 mmHg (75-108) Arterial Blood HCO3 24 mmol/L (21-28) Arterial Blood Base Excess 1 mmol/L (-3-3) FiO2 50 Medications Active Scripts Medications Dose Route/Sig Max Daily Dose Days Date Category Amiodarone Hcl 200 Mg Tablet 200 Mg PO DAILY 30 09/29/20 Rx Eliquis (Apixaban) 5 Mg Tablet 5 Mg PO BID 30 09/29/20 Rx Doxycycline Hyclate 100 Mg Tablet 100 Mg PO BID 5 09/29/20 Rx Klor-Con M20 (Potassium Chloride) 20 Meq Tab.er.prt 20 Meq PO DAILYWBKFT 30 09/29/20 Rx Furosemide 40 Mg Tablet 40 Mg PO DAILY 30 09/29/20 Rx Omeprazole 20 Mg Capsule.dr 1 Cap PO DAILY 08/08/20 Reported Metoprolol Tartrate 25 Mg Tablet 1 Tab PO BID 12/20/14 Reported Feosol (Ferrous Sulfate) 325 Mg Tablet 325 Mg PO DAILY 12/20/14 Reported Aspirin 325 Mg Tablet 1 Tab PO DAILY 12/20/14 Reported Amitriptyline Hcl 50 Mg Tablet 1 Tab PO QHS 12/17/14 Reported Ultram (Tramadol Hcl) 50 Mg Tablet 1 Tab PO Q6HRS PRN 11/01/14 Reported Dulera 100 Mcg/5 Mcg Inhaler (Mometasone/Formoterol) 13 Gm Hfa.aer.ad 2 Puff IH BID 11/01/14 Reported Lidoderm (Lidocaine) 700 Mg Adh..patch 1 Patch TP DAILY PRN 11/01/14 Reported Neurontin (Gabapentin) 300 Mg Capsule 2 Cap PO BID 11/01/14 Reported Flonase (Fluticasone Propionate) 16 Gm [place].susp 2 [place] NS DAILY 11/01/14 Reported Cyclobenzaprine Hcl 10 Mg Tablet 1 Tab PO TID PRN 11/01/14 Reported Celexa (Citalopram Hydrobromide) 40 Mg Tablet 1 Tab PO DAILY 11/01/14 Reported Cetirizine Hcl 10 Mg Tablet 1 Tab PO DAILY 11/01/14 Reported Proair Hfa Inhaler (Albuterol Sulfate) 8.5 Gm Hfa.aer.ad 2 Puff IH PRN Q4-6HRS 11/01/14 Reported Comments CXR IMPRESSION: 1. New left internal jugular temporary dialysis catheter in acceptable position. Otherwise stable support lines and tubes 2. Increasing pulmonary infiltrates and small right pleural effusion Impression . IMPRESSION: 1. Acute hypoxemic respiratory failure multifactorial 2. Septic shock etiology on clear 3. Possible pneumonia, gram-negative, gram-positive. Chest x-ray abnormal suspect combination of pulmonary edema and pneumonia 4. Acute kidney injury. 5. Colitis seen on CT abdomen and pelvis 6. Atrial fibrillation/atrial flutter. 7. Acute on chronic heart failure. 8. Bilateral pleural effusions. 9. History of ASD, status post closure. 10. Chronic obstructive pulmonary disease with exacerbation. 11. [id number]-cusxppa cor pulmonale. 12. Severe metabolic acidosis 13. coagulopathy 14. Acute kidney injury 15. Acute liver failure 16. Positive urine drug screen 17. Cardiomyopathy ejection fraction of 15% Plan . Continue current support with assist control ventilation Fi02 50% Follow CXR/ABG- reduce RR to 16 today COVID-19 negative S/P tranexamic acid for eliquis reversal-- follow INR and Hematology recs Follow nephrology recs -- continue CRRT Antibiotics per infectious disease service-- Dapto, Merrem, micafungin and Zyvox Follow cardiology input patient echocardiogram revealed ejection fraction 15%, and Afib now off A/C Continue pressors for mean arterial pressure above 60-- currently off pressors Follow surgery recs- continue OG, CT ABD colitis/ illeus-- no surgical plans at this time Nutritional support D/W RN and RT critically ill Total cumulative critical care time from [id number] DARIAN BASS MD Nov 19, 2020 11:32
--- NOTE | 2020-11-19 11:45 | PDOC ---
[facility] PROGRESS NOTE Date of Service DOS: DATE: 11/19/20 TIME: 11:43 Chief Complaint Chief Complaint Multifactorial respiratory failure with severe heart failure (15% ejection fraction but was 60% just a few months ago) Status post intubation yesterday Sepsis Colitis Severe lactic acidosis Pneumonia Lactic acidosis Severe symptomatic hypoglycemia KENNETH due to vasomotor nephropathy Acute volume overload Coagulopathy History of atrial fibrillation/atrial flutter Secondary cor pulmonale due to pulmonary hypertension Anemia of chronic disease History of Present Illness History of Present Illness 11/19/2020 Patient seen and examined in the ICU She remains intubated Assist-control/16/400/40 percent with 6 of PEEP Is currently in A. fib Also on CRRT Chart reviewed Discussed with RN She remains extremely critically ill 11/18/2020 Patient seen and examined in the ICU She is now intubated Ejection fraction noted to be 15% She is extremely critically ill volume overloaded desatting to 78% despite being on 80% FiO2 on the vent Her mom is present I spent quite a bit of time discussing the case with her and escorted her to the [facility] where she wants to pray Discussed with RN Discussed with case management Chart reviewed Patient is on assist-control/26/400/80 percent FiO2 with 8 of PEEP We are considering starting CRRT this afternoon She is sedated with Versed fentanyl and Also has Levophed and vasopressin running On IV Zyvox Extremely critically ill 11/16/2020 Patient seen and examined in the ICU CT abdomen reviewed looks like she has some possible colitis Lactic acid has decreased from 22 down to 8 Discussed with RN Discussed with case management Chart reviewed Vitals/I&O Vitals/I&O: Vital Signs Date Time Temp Pulse Resp B/P (MAP) Pulse Ox O2 Delivery O2 Flow Rate FiO2 11/19/20 11:17 22 96 Ventilator 11/19/20 11:00 109 103/66 (78) 11/19/20 08:00 97.2 97.2 I & O 11/18/20 11/18/20 11/19/20 15:00 23:00 07:00 Intake Total 450 ml 1421 ml 1380.9 ml Output Total 100 ml 455 ml 50 ml Balance 350 ml 966 ml 1330.9 ml Physical Exam Physical Exam: GENERAL: Intubated/sedated HEENT ETT/OGT tube present Neck Right IJ, left HDC, clean LUNGS: Bibasilar Rales HEART: Irregular. ABDOMEN: Mildly distended hypoactive bowel sounds EXTREMITIES: edema bilaterally. NEUROLOGIC: Intubated right femoral arterial line present DERM mottled skin General: Other (Intubated and sedated) Heart: Other (afib) Lungs: Clear Abdomen: Soft, Other (Mildly distended hypoactive bowel sounds) Extremities: No cyanosis, Other (Lower extremity edema noted) Skin: No rashes, No breakdown Labs Labs: Laboratory Tests Test 11/18/20 15:20 11/18/20 18:30 11/19/20 01:20 11/19/20 06:20 O2 Saturation 99 % (92-99) Arterial Blood pH 7.39 (7.35-7.45) Arterial Blood pCO2 at Patient Temp 30 mmHg (35-46) Arterial Blood pO2 at Patient Temp 216 mmHg (75-108) Arterial Blood HCO3 18 mmol/L (21-28) Arterial Blood Base Excess -6 mmol/L (-3-3) FiO2 70 White Blood Count 26.5 x10^3/uL (4.0-11.0) 18.4 x10^3/uL (4.0-11.0) 16.6 x10^3/uL (4.0-11.0) Red Blood Count 4.15 x10^6/uL (3.50-5.40) 3.86 x10^6/uL (3.50-5.40) 3.71 x10^6/uL (3.50-5.40) Hemoglobin 8.2 g/dL (12.0-15.5) 7.5 g/dL (12.0-15.5) 7.2 g/dL (12.0-15.5) Hematocrit 27.1 % (36.0-47.0) 25.3 % (36.0-47.0) 23.9 % (36.0-47.0) Mean Corpuscular Volume 65 fL (79-100) 66 fL (79-100) 64 fL (79-100) Mean Corpuscular Hemoglobin 20 pg (25-35) 19 pg (25-35) 19 pg (25-35) Mean Corpuscular Hemoglobin Concent 30 g/dL (31-37) 30 g/dL (31-37) 30 g/dL (31-37) Red Cell Distribution Width 25.2 % (11.5-14.5) 25.6 % (11.5-14.5) 25.1 % (11.5-14.5) Platelet Count 192 x10^3/uL (140-400) 163 x10^3/uL (140-400) 148 x10^3/uL (140-400) Neutrophils (%) (Auto) 88 % (31-73) 91 % (31-73) 90 % (31-73) Lymphocytes (%) (Auto) 6 % (24-48) 4 % (24-48) 4 % (24-48) Monocytes (%) (Auto) 5 % (0-9) 6 % (0-9) 6 % (0-9) Eosinophils (%) (Auto) 0 % (0-3) 0 % (0-3) 0 % (0-3) Basophils (%) (Auto) 1 % (0-3) 0 % (0-3) 0 % (0-3) Neutrophils # (Auto) 23.3 x10^3/uL (1.8-7.7) 16.7 x10^3/uL (1.8-7.7) 14.9 x10^3/uL (1.8-7.7) Lymphocytes # (Auto) 1.7 x10^3/uL (1.0-4.8) 0.6 x10^3/uL (1.0-4.8) 0.6 x10^3/uL (1.0-4.8) Monocytes # (Auto) 1.2 x10^3/uL (0.0-1.1) 1.0 x10^3/uL (0.0-1.1) 1.0 x10^3/uL (0.0-1.1) Eosinophils # (Auto) 0.0 x10^3/uL (0.0-0.7) 0.0 x10^3/uL (0.0-0.7) 0.0 x10^3/uL (0.0-0.7) Basophils # (Auto) 0.2 x10^3/uL (0.0-0.2) 0.0 x10^3/uL (0.0-0.2) 0.0 x10^3/uL (0.0-0.2) Sodium Level 130 mmol/L (136-145) 132 mmol/L (136-145) 134 mmol/L (136-145) Potassium Level 4.4 mmol/L (3.5-5.1) 4.4 mmol/L (3.5-5.1) 3.9 mmol/L (3.5-5.1) Chloride Level 96 mmol/L (98-107) 98 mmol/L (98-107) 100 mmol/L (98-107) Carbon Dioxide Level 23 mmol/L (21-32) 23 mmol/L (21-32) 24 mmol/L (21-32) Anion Gap 11 (6-14) 11 (6-14) 10 (6-14) Blood Urea Nitrogen 40 mg/dL (7-20) 32 mg/dL (7-20) 26 mg/dL (7-20) Creatinine 2.1 mg/dL (0.6-1.0) 1.7 mg/dL (0.6-1.0) 1.5 mg/dL (0.6-1.0) Estimated GFR (Cockcroft-Gault) 31.7 40.5 46.8 Glucose Level 115 mg/dL (70-99) 84 mg/dL (70-99) 97 mg/dL (70-99) Calcium Level 8.1 mg/dL (8.5-10.1) 8.0 mg/dL (8.5-10.1) 7.9 mg/dL (8.5-10.1) Phosphorus Level 3.9 mg/dL (2.6-4.7) 2.9 mg/dL (2.6-4.7) 2.4 mg/dL (2.6-4.7) Magnesium Level 2.2 mg/dL (1.8-2.4) 2.3 mg/dL (1.8-2.4) 2.3 mg/dL (1.8-2.4) Creatine Kinase 357 U/L (26-192) BUN/Creatinine Ratio 17 (6-20) Total Bilirubin 5.2 mg/dL (0.2-1.0) Aspartate Amino Transf (AST/SGOT) 242 U/L (15-37) Alanine Aminotransferase (ALT/SGPT) 98 U/L (14-59) Alkaline Phosphatase 107 U/L (46-116) Total Protein 5.4 g/dL (6.4-8.2) Albumin 2.3 g/dL (3.4-5.0) Albumin/Globulin Ratio 0.7 (1.0-1.7) Hepatitis B Surface Antigen Nonreactive (Nonreactive) Test 11/19/20 08:05 O2 Saturation 99 % (92-99) Arterial Blood pH 7.53 (7.35-7.45) Arterial Blood pCO2 at Patient Temp 29 mmHg (35-46) Arterial Blood pO2 at Patient Temp 179 mmHg (75-108) Arterial Blood HCO3 24 mmol/L (21-28) Arterial Blood Base Excess 1 mmol/L (-3-3) FiO2 50 Assessment and Plan Assessmemt and Plan Problems Medical Problems: (1) KENNETH (acute kidney injury) Status: Acute (2) Atrial fibrillation with RVR Status: Acute (3) CHF (congestive heart failure) Status: Acute (4) Hypoglycemia Status: Acute (5) Pneumonia Status: Acute Multifactorial respiratory failure with severe heart failure (15% ejection fraction but was 60% just a few months ago) Status post intubation yesterday Sepsis Colitis Severe lactic acidosis Pneumonia Lactic acidosis Severe symptomatic hypoglycemia KENNETH due to vasomotor nephropathy Acute volume overload Coagulopathy History of atrial fibrillation/atrial flutter Secondary cor pulmonale due to pulmonary hypertension Anemia of chronic disease Plan ICU monitoring Continue CRRT Wound care Vent weaning IV antibiotics Trend labs 7 consults are on board appreciate their input Strict I's and O's Sky to bedside drainage Continue telemetry monitoring for atrial fibrillation Continue amiodarone Continue IV empiric antibiotics Heparin for DVT prophylaxis Protonix for GI prophylaxis Full code Discussed with RN CC time 32 minutes Comment Review of Relevant I have reviewed the following items josé (where applicable) has been applied. Medications: Current Medications Medications (Trade) Dose Ordered Sig/Kailey Route PRN Reason Start Time Stop Time Status Last Admin Dose Admin Tranexamic Acid 50 ml @ 50 mls/hr Q12HR INJ 11/18/20 13:00 11/19/20 08:57 Prothrombin Complex Concent (Human) 2000 unit/ Miscellaneous 80 ml @ 160 mls/hr 1X ONCE IV 11/18/20 14:30 11/18/20 14:59 DC 11/18/20 14:48 Meropenem 1 gm/ Sodium Chloride 100 ml @ 200 mls/hr Q12HR IV 11/18/20 21:00 11/19/20 08:57 Justifications for Admission Other Justification chf exacerbation GARETH SOLITARIO III DO Nov 19, 2020 11:45
[2020-11-19] MEDS: MICAFUNGIN 100 MG in IV DEXTROSE 5% 100ML 100 ML IV SCH (11:57)
[2020-11-19 12:06] LABS: PROTHROMBIN TIME PATIENT 27.6 SEC (11.7-14.0)
[2020-11-19 12:17] LABS: ALBUMIN 2.3 g/dL (3.4-5.0); ALBUMIN/GLOBULIN RATIO 0.7 (1.0-1.7); CALCIUM 7.9 mg/dL (8.5-10.1); CREATININE 1.3 mg/dL (0.6-1.0); GFR 55.2; MAGNESIUM 2.3 mg/dL (1.8-2.4); PHOSPHORUS 1.9 mg/dL (2.6-4.7); POTASSIUM 3.5 mmol/L (3.5-5.1); TOTAL BILIRUBIN 5.3 mg/dL (0.2-1.0); TOTAL PROTEIN 5.5 g/dL (6.4-8.2)
--- NOTE | 2020-11-19 12:29 | PDOC ---
CARDIOLOGY PROGRESS NOTE SUBJECTIVE: Overnight, no new CV events. On CRRT, stable. Off pressors. OBJECTIVE: Vital Signs/I&O: Vital Signs Date Time Temp Pulse Resp B/P (MAP) Pulse Ox O2 Delivery O2 Flow Rate FiO2 11/19/20 12:00 Mechanical Ventilator 11/19/20 12:00 99 91/52 (65) 11/19/20 12:00 97.5 22 98 97.5 I & O 11/18/20 11/18/20 11/19/20 15:00 23:00 07:00 Intake Total 450 ml 1421 ml 1380.9 ml Output Total 100 ml 455 ml 50 ml Balance 350 ml 966 ml 1330.9 ml Objective: Nonresponsive Anasarca noted irregular heart tones decreased breath sounds CURRENT MEDICATIONS: Current Medications Medications (Trade) Dose Ordered Sig/Kailey Route PRN Reason Start Time Stop Time Status Last Admin Dose Admin Tranexamic Acid 50 ml @ 50 mls/hr Q12HR INJ 11/18/20 13:00 11/19/20 08:57 Prothrombin Complex Concent (Human) 2000 unit/ Miscellaneous 80 ml @ 160 mls/hr 1X ONCE IV 11/18/20 14:30 11/18/20 14:59 DC 11/18/20 14:48 Meropenem 1 gm/ Sodium Chloride 100 ml @ 200 mls/hr Q12HR IV 11/18/20 21:00 11/19/20 08:57 DIAGNOSTIC TESTING: Labs reviewed ASSESSMENT: 1. Acute on chronic systolic and diastolic HF 2. Cor pulmonale 3. hx of open ASD repair. 4. ESRD now on CRRT 5. Septic shock PLAN: 1. Discussed with nursing, her right heart hemodynamics need to be improved, will plan for diuresis with use of vasopressors and determine further plans after fluid optimization. Likely will benefit from evaluation at [facility] for heart transplant. Will need to clear infection issues first. Supportive care. Thanks Justicifation of Admission Dx: Justifications for Admission: Justification of Admission Dx: Yes CHF: Cardiac Arrhythmias CHAYO LOCKWOOD MD Nov 19, 2020 12:29
[2020-11-19] MEDS ORDERED: SODIUM PHOSPHATE 20 MMOL in IV NORMAL SALINE 250ML 250 ML IV ONE (12:30)
--- NOTE | 2020-11-19 15:09 | PDOC ---
PROGRESS NOTES Date of Service DATE: 11/19/20 TIME: 15:05 Subjective Subjective No interval events. CRRT initiated. Repeat echo has shown significantly lower EF of 15%. Cardiology involved Objective Objective Vital Signs Date Time Temp Pulse Resp B/P (MAP) Pulse Ox O2 Delivery O2 Flow Rate FiO2 11/19/20 15:00 97 27 118/62 (80) 93 Ventilator 11/19/20 12:00 97.5 97.5 11/17/20 14:00 6.0 Intake and Output 11/19/20 07:00 Intake Total 3251.9 ml Output Total 605 ml Balance 2646.9 ml IV Total 3251.9 ml Output Urine Total 205 ml Gastric Drainage Total 400 ml Physical Exam Abdomen: No hepatosplenomegaly Heart: Other (Irregular rhythm) Extremities: No cyanosis General: Other (Sedated and on ventilator) Lungs: Normal air movement Neck: Supple Assessment Assessment Acute hypoxic respiratory failure requiring intubation and chemical ventilation Acute kidney injury requiring addition of CRRT on 11/18/2020 Shock, likely cardiogenic requiring pressor support, currently on 2 pressors Abnormal LFTs, secondary to shock liver versus other etiology Elevated INR, likely multifactorial from shock liver, Eliquis and consumptive coagulopathy, now improved after Kcentra on 11/18/2020 Plan Plan of Care -Given clinically evident bleeding and recent use of apixaban, recommended proceeding with Kcentra. She received this on 11/18/2020 -Given continued bleeding, continue tranexamic acid 1 mg every 12 hours until cessation of bleeding -Checked factor VII level prior to administration of Kcentra and mixing studies to determine etiology of elevated INR despite normal PT. Will follow up on results -Recheck CBC, INR and fibrinogen tomorrow -Noted results of ultrasound Doppler which does not reveal Budd-Chiari syndrome. Suspect congestive hepatopathy from heart failure -Evaluation and management of acute respiratory failure per Dr. Heller -Management of cardiogenic shock per cardiology service -CRRT per nephrology Rakehs Corado MD Medical Oncology/Hematology Ph: [phone] Comment Review of Relevant I have reviewed the following items josé (where applicable) has been applied. Labs Laboratory Tests Test 11/17/20 18:00 11/18/20 00:01 11/18/20 04:30 11/18/20 06:30 Hemoglobin 8.4 g/dL (12.0-15.5) 9.0 g/dL (12.0-15.5) 8.5 g/dL (12.0-15.5) Hematocrit 30.0 % (36.0-47.0) 31.9 % (36.0-47.0) 30.8 % (36.0-47.0) Mean Corpuscular Hemoglobin Concent 28 g/dL (31-37) 28 g/dL (31-37) 28 g/dL (31-37) White Blood Count 26.7 x10^3/uL (4.0-11.0) Red Blood Count 4.38 x10^6/uL (3.50-5.40) Mean Corpuscular Volume 70 fL (79-100) Mean Corpuscular Hemoglobin 20 pg (25-35) Red Cell Distribution Width 25.9 % (11.5-14.5) Platelet Count 243 x10^3/uL (140-400) Neutrophils (%) (Auto) 82 % (31-73) Lymphocytes (%) (Auto) 12 % (24-48) Monocytes (%) (Auto) 5 % (0-9) Eosinophils (%) (Auto) 0 % (0-3) Basophils (%) (Auto) 1 % (0-3) Neutrophils # (Auto) 22.0 x10^3/uL (1.8-7.7) Lymphocytes # (Auto) 3.3 x10^3/uL (1.0-4.8) Monocytes # (Auto) 1.3 x10^3/uL (0.0-1.1) Eosinophils # (Auto) 0.0 x10^3/uL (0.0-0.7) Basophils # (Auto) 0.1 x10^3/uL (0.0-0.2) Segmented Neutrophils % 85 % (35-66) Band Neutrophils % 8 % (0-9) Lymphocytes % 3 % (24-48) Monocytes % 4 % (0-10) Nucleated Red Blood Cells 1 Platelet Estimate Adequate (ADEQUATE) Polychromasia Slight Poikilocytosis Present Anisocytosis Mod Microcytosis Present Target Cells Occ Ovalocytes Few [place] Cells Acanthocytes Few RBC Morphology Bizarre Forms Few Sodium Level 130 mmol/L (136-145) Potassium Level 5.2 mmol/L (3.5-5.1) Chloride Level 93 mmol/L (98-107) Carbon Dioxide Level 15 mmol/L (21-32) Anion Gap 22 (6-14) Blood Urea Nitrogen 55 mg/dL (7-20) Creatinine 3.0 mg/dL (0.6-1.0) Estimated GFR (Cockcroft-Gault) 21.0 Glucose Level 100 mg/dL (70-99) Calcium Level 8.6 mg/dL (8.5-10.1) Prothrombin Time 61.7 SEC (11.7-14.0) Prothromb Time International Ratio 6.9 (0.8-1.1) Fibrinogen 226 mg/dL (200-440) Total Bilirubin 4.5 mg/dL (0.2-1.0) Direct Bilirubin 3.6 mg/dL (0.0-0.2) Aspartate Amino Transf (AST/SGOT) 240 U/L (15-37) Alanine Aminotransferase (ALT/SGPT) 88 U/L (14-59) Alkaline Phosphatase 131 U/L (46-116) Total Protein 6.1 g/dL (6.4-8.2) Albumin 2.8 g/dL (3.4-5.0) Test 11/18/20 07:35 11/18/20 10:20 11/18/20 10:50 11/18/20 15:20 Hemoglobin 8.4 g/dL (12.0-15.5) 8.0 g/dL (12.0-15.5) Hematocrit 29.9 % (36.0-47.0) 28.2 % (36.0-47.0) Mean Corpuscular Hemoglobin Concent 28 g/dL (31-37) 29 g/dL (31-37) O2 Saturation 100 % (92-99) 99 % (92-99) Arterial Blood pH 7.32 (7.35-7.45) 7.39 (7.35-7.45) Arterial Blood pCO2 at Patient Temp 31 mmHg (35-46) 30 mmHg (35-46) Arterial Blood pO2 at Patient Temp 266 mmHg (75-108) 216 mmHg (75-108) Arterial Blood HCO3 16 mmol/L (21-28) 18 mmol/L (21-28) Arterial Blood Base Excess -10 mmol/L (-3-3) -6 mmol/L (-3-3) FiO2 100 70 Test 11/18/20 18:30 11/19/20 01:20 11/19/20 06:20 11/19/20 08:05 White Blood Count 26.5 x10^3/uL (4.0-11.0) 18.4 x10^3/uL (4.0-11.0) 16.6 x10^3/uL (4.0-11.0) Red Blood Count 4.15 x10^6/uL (3.50-5.40) 3.86 x10^6/uL (3.50-5.40) 3.71 x10^6/uL (3.50-5.40) Hemoglobin 8.2 g/dL (12.0-15.5) 7.5 g/dL (12.0-15.5) 7.2 g/dL (12.0-15.5) Hematocrit 27.1 % (36.0-47.0) 25.3 % (36.0-47.0) 23.9 % (36.0-47.0) Mean Corpuscular Volume 65 fL (79-100) 66 fL (79-100) 64 fL (79-100) Mean Corpuscular Hemoglobin 20 pg (25-35) 19 pg (25-35) 19 pg (25-35) Mean Corpuscular Hemoglobin Concent 30 g/dL (31-37) 30 g/dL (31-37) 30 g/dL (31-37) Red Cell Distribution Width 25.2 % (11.5-14.5) 25.6 % (11.5-14.5) 25.1 % (11.5-14.5) Platelet Count 192 x10^3/uL (140-400) 163 x10^3/uL (140-400) 148 x10^3/uL (140-400) Neutrophils (%) (Auto) 88 % (31-73) 91 % (31-73) 90 % (31-73) Lymphocytes (%) (Auto) 6 % (24-48) 4 % (24-48) 4 % (24-48) Monocytes (%) (Auto) 5 % (0-9) 6 % (0-9) 6 % (0-9) Eosinophils (%) (Auto) 0 % (0-3) 0 % (0-3) 0 % (0-3) Basophils (%) (Auto) 1 % (0-3) 0 % (0-3) 0 % (0-3) Neutrophils # (Auto) 23.3 x10^3/uL (1.8-7.7) 16.7 x10^3/uL (1.8-7.7) 14.9 x10^3/uL (1.8-7.7) Lymphocytes # (Auto) 1.7 x10^3/uL (1.0-4.8) 0.6 x10^3/uL (1.0-4.8) 0.6 x10^3/uL (1.0-4.8) Monocytes # (Auto) 1.2 x10^3/uL (0.0-1.1) 1.0 x10^3/uL (0.0-1.1) 1.0 x10^3/uL (0.0-1.1) Eosinophils # (Auto) 0.0 x10^3/uL (0.0-0.7) 0.0 x10^3/uL (0.0-0.7) 0.0 x10^3/uL (0.0-0.7) Basophils # (Auto) 0.2 x10^3/uL (0.0-0.2) 0.0 x10^3/uL (0.0-0.2) 0.0 x10^3/uL (0.0-0.2) Sodium Level 130 mmol/L (136-145) 132 mmol/L (136-145) 134 mmol/L (136-145) Potassium Level 4.4 mmol/L (3.5-5.1) 4.4 mmol/L (3.5-5.1) 3.9 mmol/L (3.5-5.1) Chloride Level 96 mmol/L (98-107) 98 mmol/L (98-107) 100 mmol/L (98-107) Carbon Dioxide Level 23 mmol/L (21-32) 23 mmol/L (21-32) 24 mmol/L (21-32) Anion Gap 11 (6-14) 11 (6-14) 10 (6-14) Blood Urea Nitrogen 40 mg/dL (7-20) 32 mg/dL (7-20) 26 mg/dL (7-20) Creatinine 2.1 mg/dL (0.6-1.0) 1.7 mg/dL (0.6-1.0) 1.5 mg/dL (0.6-1.0) Estimated GFR (Cockcroft-Gault) 31.7 40.5 46.8 Glucose Level 115 mg/dL (70-99) 84 mg/dL (70-99) 97 mg/dL (70-99) Calcium Level 8.1 mg/dL (8.5-10.1) 8.0 mg/dL (8.5-10.1) 7.9 mg/dL (8.5-10.1) Phosphorus Level 3.9 mg/dL (2.6-4.7) 2.9 mg/dL (2.6-4.7) 2.4 mg/dL (2.6-4.7) Magnesium Level 2.2 mg/dL (1.8-2.4) 2.3 mg/dL (1.8-2.4) 2.3 mg/dL (1.8-2.4) Creatine Kinase 357 U/L (26-192) BUN/Creatinine Ratio 17 (6-20) Total Bilirubin 5.2 mg/dL (0.2-1.0) Aspartate Amino Transf (AST/SGOT) 242 U/L (15-37) Alanine Aminotransferase (ALT/SGPT) 98 U/L (14-59) Alkaline Phosphatase 107 U/L (46-116) Total Protein 5.4 g/dL (6.4-8.2) Albumin 2.3 g/dL (3.4-5.0) Albumin/Globulin Ratio 0.7 (1.0-1.7) Hepatitis B Surface Antigen Nonreactive (Nonreactive) O2 Saturation 99 % (92-99) Arterial Blood pH 7.53 (7.35-7.45) Arterial Blood pCO2 at Patient Temp 29 mmHg (35-46) Arterial Blood pO2 at Patient Temp 179 mmHg (75-108) Arterial Blood HCO3 24 mmol/L (21-28) Arterial Blood Base Excess 1 mmol/L (-3-3) FiO2 50 Test 11/19/20 11:49 Prothrombin Time 27.6 SEC (11.7-14.0) Prothromb Time International Ratio 2.6 (0.8-1.1) Sodium Level 133 mmol/L (136-145) Potassium Level 3.5 mmol/L (3.5-5.1) Chloride Level 99 mmol/L (98-107) Carbon Dioxide Level 26 mmol/L (21-32) Anion Gap 8 (6-14) Blood Urea Nitrogen 22 mg/dL (7-20) Creatinine 1.3 mg/dL (0.6-1.0) Estimated GFR (Cockcroft-Gault) 55.2 BUN/Creatinine Ratio 17 (6-20) Glucose Level 141 mg/dL (70-99) Lactic Acid Level 1.9 mmol/L (0.4-2.0) Calcium Level 7.9 mg/dL (8.5-10.1) Phosphorus Level 1.9 mg/dL (2.6-4.7) Magnesium Level 2.3 mg/dL (1.8-2.4) Total Bilirubin 5.3 mg/dL (0.2-1.0) Aspartate Amino Transf (AST/SGOT) 249 U/L (15-37) Alanine Aminotransferase (ALT/SGPT) 112 U/L (14-59) Alkaline Phosphatase 117 U/L (46-116) Total Protein 5.5 g/dL (6.4-8.2) Albumin 2.3 g/dL (3.4-5.0) Albumin/Globulin Ratio 0.7 (1.0-1.7) Laboratory Tests Test 11/18/20 15:20 11/18/20 18:30 11/19/20 01:20 11/19/20 06:20 O2 Saturation 99 % (92-99) Arterial Blood pH 7.39 (7.35-7.45) Arterial Blood pCO2 at Patient Temp 30 mmHg (35-46) Arterial Blood pO2 at Patient Temp 216 mmHg (75-108) Arterial Blood HCO3 18 mmol/L (21-28) Arterial Blood Base Excess -6 mmol/L (-3-3) FiO2 70 White Blood Count 26.5 x10^3/uL (4.0-11.0) 18.4 x10^3/uL (4.0-11.0) 16.6 x10^3/uL (4.0-11.0) Red Blood Count 4.15 x10^6/uL (3.50-5.40) 3.86 x10^6/uL (3.50-5.40) 3.71 x10^6/uL (3.50-5.40) Hemoglobin 8.2 g/dL (12.0-15.5) 7.5 g/dL (12.0-15.5) 7.2 g/dL (12.0-15.5) Hematocrit 27.1 % (36.0-47.0) 25.3 % (36.0-47.0) 23.9 % (36.0-47.0) Mean Corpuscular Volume 65 fL (79-100) 66 fL (79-100) 64 fL (79-100) Mean Corpuscular Hemoglobin 20 pg (25-35) 19 pg (25-35) 19 pg (25-35) Mean Corpuscular Hemoglobin Concent 30 g/dL (31-37) 30 g/dL (31-37) 30 g/dL (31-37) Red Cell Distribution Width 25.2 % (11.5-14.5) 25.6 % (11.5-14.5) 25.1 % (11.5-14.5) Platelet Count 192 x10^3/uL (140-400) 163 x10^3/uL (140-400) 148 x10^3/uL (140-400) Neutrophils (%) (Auto) 88 % (31-73) 91 % (31-73) 90 % (31-73) Lymphocytes (%) (Auto) 6 % (24-48) 4 % (24-48) 4 % (24-48) Monocytes (%) (Auto) 5 % (0-9) 6 % (0-9) 6 % (0-9) Eosinophils (%) (Auto) 0 % (0-3) 0 % (0-3) 0 % (0-3) Basophils (%) (Auto) 1 % (0-3) 0 % (0-3) 0 % (0-3) Neutrophils # (Auto) 23.3 x10^3/uL (1.8-7.7) 16.7 x10^3/uL (1.8-7.7) 14.9 x10^3/uL (1.8-7.7) Lymphocytes # (Auto) 1.7 x10^3/uL (1.0-4.8) 0.6 x10^3/uL (1.0-4.8) 0.6 x10^3/uL (1.0-4.8) Monocytes # (Auto) 1.2 x10^3/uL (0.0-1.1) 1.0 x10^3/uL (0.0-1.1) 1.0 x10^3/uL (0.0-1.1) Eosinophils # (Auto) 0.0 x10^3/uL (0.0-0.7) 0.0 x10^3/uL (0.0-0.7) 0.0 x10^3/uL (0.0-0.7) Basophils # (Auto) 0.2 x10^3/uL (0.0-0.2) 0.0 x10^3/uL (0.0-0.2) 0.0 x10^3/uL (0.0-0.2) Sodium Level 130 mmol/L (136-145) 132 mmol/L (136-145) 134 mmol/L (136-145) Potassium Level 4.4 mmol/L (3.5-5.1) 4.4 mmol/L (3.5-5.1) 3.9 mmol/L (3.5-5.1) Chloride Level 96 mmol/L (98-107) 98 mmol/L (98-107) 100 mmol/L (98-107) Carbon Dioxide Level 23 mmol/L (21-32) 23 mmol/L (21-32) 24 mmol/L (21-32) Anion Gap 11 (6-14) 11 (6-14) 10 (6-14) Blood Urea Nitrogen 40 mg/dL (7-20) 32 mg/dL (7-20) 26 mg/dL (7-20) Creatinine 2.1 mg/dL (0.6-1.0) 1.7 mg/dL (0.6-1.0) 1.5 mg/dL (0.6-1.0) Estimated GFR (Cockcroft-Gault) 31.7 40.5 46.8 Glucose Level 115 mg/dL (70-99) 84 mg/dL (70-99) 97 mg/dL (70-99) Calcium Level 8.1 mg/dL (8.5-10.1) 8.0 mg/dL (8.5-10.1) 7.9 mg/dL (8.5-10.1) Phosphorus Level 3.9 mg/dL (2.6-4.7) 2.9 mg/dL (2.6-4.7) 2.4 mg/dL (2.6-4.7) Magnesium Level 2.2 mg/dL (1.8-2.4) 2.3 mg/dL (1.8-2.4) 2.3 mg/dL (1.8-2.4) Creatine Kinase 357 U/L (26-192) BUN/Creatinine Ratio 17 (6-20) Total Bilirubin 5.2 mg/dL (0.2-1.0) Aspartate Amino Transf (AST/SGOT) 242 U/L (15-37) Alanine Aminotransferase (ALT/SGPT) 98 U/L (14-59) Alkaline Phosphatase 107 U/L (46-116) Total Protein 5.4 g/dL (6.4-8.2) Albumin 2.3 g/dL (3.4-5.0) Albumin/Globulin Ratio 0.7 (1.0-1.7) Hepatitis B Surface Antigen Nonreactive (Nonreactive) Test 11/19/20 08:05 11/19/20 11:49 O2 Saturation 99 % (92-99) Arterial Blood pH 7.53 (7.35-7.45) Arterial Blood pCO2 at Patient Temp 29 mmHg (35-46) Arterial Blood pO2 at Patient Temp 179 mmHg (75-108) Arterial Blood HCO3 24 mmol/L (21-28) Arterial Blood Base Excess 1 mmol/L (-3-3) FiO2 50 Prothrombin Time 27.6 SEC (11.7-14.0) Prothromb Time International Ratio 2.6 (0.8-1.1) Sodium Level 133 mmol/L (136-145) Potassium Level 3.5 mmol/L (3.5-5.1) Chloride Level 99 mmol/L (98-107) Carbon Dioxide Level 26 mmol/L (21-32) Anion Gap 8 (6-14) Blood Urea Nitrogen 22 mg/dL (7-20) Creatinine 1.3 mg/dL (0.6-1.0) Estimated GFR (Cockcroft-Gault) 55.2 BUN/Creatinine Ratio 17 (6-20) Glucose Level 141 mg/dL (70-99) Lactic Acid Level 1.9 mmol/L (0.4-2.0) Calcium Level 7.9 mg/dL (8.5-10.1) Phosphorus Level 1.9 mg/dL (2.6-4.7) Magnesium Level 2.3 mg/dL (1.8-2.4) Total Bilirubin 5.3 mg/dL (0.2-1.0) Aspartate Amino Transf (AST/SGOT) 249 U/L (15-37) Alanine Aminotransferase (ALT/SGPT) 112 U/L (14-59) Alkaline Phosphatase 117 U/L (46-116) Total Protein 5.5 g/dL (6.4-8.2) Albumin 2.3 g/dL (3.4-5.0) Albumin/Globulin Ratio 0.7 (1.0-1.7) Microbiology 11/17/20 Blood Culture - Preliminary, Resulted NO GROWTH AFTER 2 DAYS 11/15/20 Urine Culture - Final, Complete Medications Current Medications Furosemide (Lasix) 40 mg 1X ONCE IVP Last administered on 11/15/20at 11:16; Start 11/15/20 at 10:15; Stop 11/15/20 at 10:22; Status DC Vancomycin HCl 2 gm/Sodium Chloride 500 ml @ 250 mls/hr 1X ONCE IV Last administered on 11/15/20at 13:37; Start 11/15/20 at 13:00; Stop 11/15/20 at 14:59; Status DC Piperacillin Sod/ Tazobactam Sod 3.375 gm/Sodium Chloride 50 ml @ 100 mls/hr 1X ONCE IV Last administered on 11/15/20at 13:05; Start 11/15/20 at 13:00; Stop 11/15/20 at 13:29; Status DC Dextrose (Dextrose 50%-Water Syringe) 25 gm STK-MED ONCE IV ; Start 11/15/20 at 12:27; Stop 11/15/20 at 12:27; Status DC Dextrose (Dextrose 50%-Water Syringe) 25 gm 1X ONCE IV Last administered on 11/15/20at 12:35; Start 11/15/20 at 12:45; Stop 11/15/20 at 12:46; Status DC Ondansetron HCl (Zofran) 4 mg PRN Q8HRS PRN IV NAUSEA/VOMITING; Start 11/15/20 at 13:00; Stop 11/15/20 at 18:28; Status DC Fentanyl Citrate (Fentanyl 2ml Vial) 50 mcg PRN Q1HR PRN IV PAIN; Start 11/15/20 at 13:00; Stop 11/16/20 at 12:59; Status DC Acetaminophen (Tylenol) 650 mg PRN Q4HRS PRN PO FEVER > 100.3'F; Start 11/15/20 at 13:00; Stop 11/15/20 at 18:29; Status DC Dextrose/Sodium Chloride 1,000 ml @ 50 mls/hr Q20H IV Last administered on 11/17/20at 09:28; Start 11/15/20 at 16:00 Sodium Bicarbonate (Sodium Bicarb Adult 8.4% Syr) 100 meq 1X ONCE IV Last administered on 11/15/20at 16:43; Start 11/15/20 at 15:30; Stop 11/15/20 at 15:31; Status DC Vancomycin HCl (Vanco Per Pharmacy) 1 each PRN DAILY PRN MC SEE COMMENTS; Start 11/15/20 at 16:15; Stop 11/16/20 at 11:05; Status DC Cefepime HCl (Maxipime) 2 gm Q24H IVP Last administered on 11/16/20at 16:30; Start 11/15/20 at 17:00; Stop 11/17/20 at 11:51; Status DC Sennosides (Senna) 17.2 mg PRN BID PRN PO CONSTIPATION; Start 11/15/20 at 16:15 Docusate Sodium (Colace) 100 mg PRN DAILY PRN PO HARD STOOLS; Start 11/15/20 at 16:15 Ondansetron HCl (Zofran) 4 mg PRN Q6HRS PRN IVP NAUSEA/VOMITING; Start 11/15/20 at 16:15 Dextrose (Dextrose 50%-Water Syringe) 12.5 gm PRN Q15MIN PRN IV SEE COMMENTS; Start 11/15/20 at 16:15 Acetaminophen (Tylenol) 650 mg PRN Q4HRS PRN PO TEMP OVER 100.4F OR MILD PAIN; Start 11/15/20 at 16:15 Heparin Sodium (Porcine) (Heparin Sodium) 5,000 unit Q12HR SQ ; Start 11/15/20 at 21:00; Stop 11/15/20 at 16:17; Status DC Amiodarone HCl (Cordarone) 200 mg DAILY PO ; Start 11/16/20 at 09:00; Stop 11/15/20 at 16:38; Status DC Aspirin ([place] Aspirin) 325 mg DAILY PO ; Start 11/16/20 at 09:00; Stop 11/15/20 at 16:38; Status DC Fluticasone Propionate (Flonase) 2 spray DAILY NS Last administered on 11/17/20at 08:37; Start 11/16/20 at 09:00 Gabapentin (Neurontin) 600 mg BID PO Last administered on 11/17/20at 09:23; Start 11/15/20 at 21:00 Metoprolol Tartrate (Lopressor) 25 mg BID PO Last administered on 11/15/20at 21:28; Start 11/15/20 at 21:00; Stop 11/16/20 at 09:08; Status DC Citalopram Hydrobromide (CeleXA) 40 mg DAILY PO Last administered on 11/17/20at 09:23; Start 11/16/20 at 09:00 Pantoprazole Sodium (Protonix) 40 mg DAILYAC PO Last administered on 11/17/20at 08:36; Start 11/16/20 at 07:30; Stop 11/17/20 at 14:53; Status DC Thiamine Mononitrate (Vitamin B-1) 300 mg DAILY PO ; Start 11/15/20 at 16:30; Stop 11/15/20 at 16:22; Status DC Thiamine HCl 300 mg/Dextrose 53 ml @ 102 mls/hr Q8HRS IV Last administered on 11/17/20at 06:17; Start 11/15/20 at 22:00; Stop 11/17/20 at 09:46; Status DC Metronidazole 100 ml @ 100 mls/hr Q12HR IV Last administered on 11/17/20at 08:41; Start 11/15/20 at 21:00; Stop 11/17/20 at 11:51; Status DC Metoprolol Tartrate (Lopressor) 50 mg BID PO Last administered on 11/17/20at 09:24; Start 11/16/20 at 09:15; Stop 11/17/20 at 12:56; Status DC Furosemide (Lasix) 40 mg 1X ONCE IVP Last administered on 11/16/20at 14:08; Start 11/16/20 at 14:00; Stop 11/16/20 at 14:01; Status DC Potassium Chloride (Klor-Con) 60 meq 1X ONCE PO Last administered on 11/16/20at 14:06; Start 11/16/20 at 14:00; Stop 11/16/20 at 14:01; Status DC Calcium Carbonate/ Glycine (Tums) 500 mg PRN Q4HRS PRN PO MILD INDIGESTION; Start 11/16/20 at 21:15; Stop 11/18/20 at 09:38; Status DC Calcium Carbonate/ Glycine (Tums) 1,000 mg PRN Q4HRS PRN PO SEVERE INDIGESTION Last administered on 11/16/20at 21:37; Start 11/16/20 at 21:30 Albuterol/ Ipratropium (Duoneb) 3 ml RTQID NEB Last administered on 11/19/20at 11:55; Start 11/17/20 at 09:00 Budesonide (Pulmicort) 0.5 mg RTBID NEB Last administered on 11/19/20at 07:58; Start 11/17/20 at 09:00 Thiamine Mononitrate (Vitamin B-1) 300 mg TID PO ; Start 11/17/20 at 14:00 Sodium Bicarbonate 150 meq/Dextrose 1,150 ml @ 125 mls/hr Q9H12M ONCE IV Last administered on 11/17/20at 11:26; Start 11/17/20 at 11:30; Stop 11/17/20 at 20:41; Status DC Norepinephrine Bitartrate 8 mg/ Dextrose 258 ml @ 15.344 mls/ hr CONT PRN IV PER PROTOCOL Last administered on 11/17/20at 11:32; Start 11/17/20 at 11:15; Stop 11/17/20 at 14:30; Status DC Meropenem 500 mg/ Sodium Chloride 50 ml @ 100 mls/hr Q8HRS IV Last administered on 11/18/20at 06:17; Start 11/17/20 at 12:30; Stop 11/18/20 at 13:01; Status DC Daptomycin 390 mg/ Sodium Chloride 50 ml @ 100 mls/hr Q24H IV Last administered on 11/18/20at 13:11; Start 11/17/20 at 13:00; Stop 11/18/20 at 14:09; Status DC Micafungin Sodium 100 mg/Dextrose 100 ml @ 100 mls/hr Q24H IV Last administered on 11/19/20at 11:57; Start 11/17/20 at 12:30 Lidocaine HCl (Xylocaine-Mpf 1% 2ml Vial) 2 ml 1X ONCE INJ ; Start 11/17/20 at 12:00; Stop 11/17/20 at 12:07; Status DC Vasopressin 20 unit/Dextrose 101 ml @ 12 mls/hr CONT PRN IV SEE I/O RECORD Last administered on 11/18/20at 22:15; Start 11/17/20 at 13:30 Vasopressin 20 unit/Dextrose 101 ml @ 12 mls/hr CONT PRN IV SEE I/O RECORD; Start 11/17/20 at 13:30; Status UNV Phenylephrine HCl 50 mg/Sodium Chloride 255 ml @ 12.133 mls/ hr CONT PRN IV SEE I/O RECORD; Start 11/17/20 at 13:30 Norepinephrine Bitartrate 32 mg/ Dextrose 250 ml @ 3.703 mls/ hr CONT PRN IV SEE I/O RECORD Last administered on 11/18/20at 03:50; Start 11/17/20 at 13:30 Hydrocortisone Sodium Succinate (Solu-CORTEF) 300 mg 1X ONCE IVP Last administered on 11/17/20at 14:25; Start 11/17/20 at 14:00; Stop 11/17/20 at 14:01; Status DC Hydrocortisone Sodium Succinate (Solu-CORTEF) 100 mg Q8HRS IVP Last administered on 11/19/20at 14:03; Start 11/17/20 at 22:00 Ringer's Solution 1,000 ml @ 200 mls/hr Q5H IV Last administered on 11/19/20at 08:07; Start 11/17/20 at 15:00 Ringer's Solution 1,000 ml @ 1,000 mls/hr Q1H ONCE IV Last administered on 11/17/20at 15:45; Start 11/17/20 at 14:00; Stop 11/17/20 at 14:59; Status DC Fentanyl Citrate 30 ml @ 0 mls/hr CONT PRN IV SEE PROTOCOL Last administered on 11/19/20at 10:40; Start 11/17/20 at 14:00 Fentanyl Citrate (Fentanyl 2ml Vial) 25 mcg PRN Q1HR PRN IV SEE COMMENTS; Start 11/17/20 at 14:00 Fentanyl Citrate (Fentanyl 2ml Vial) 50 mcg PRN Q1HR PRN IV SEE COMMENTS; Start 11/17/20 at 14:00 Chlorhexidine Gluconate (Peridex) 15 ml BID MM Last administered on 11/19/20at 09:00; Start 11/17/20 at 21:00 Morphine Sulfate (Morphine Sulfate) 2 mg PRN Q1HR PRN IV SEE COMMENTS.; Start 11/17/20 at 14:00 Morphine Sulfate (Morphine Sulfate) 4 mg PRN Q1HR PRN IV SEE COMMENTS.; Start 11/17/20 at 14:00 Midazolam HCl 100 ml @ 0 mls/hr CONT PRN IV SEE PROTOCOL Last administered on 11/19/20at 11:17; Start 11/17/20 at 14:00 Succinylcholine Chloride (Anectine) 200 mg STK-MED ONCE .ROUTE ; Start 11/17/20 at 14:00; Stop 11/17/20 at 14:00; Status DC Etomidate (Amidate) 20 mg STK-MED ONCE IV ; Start 11/17/20 at 14:00; Stop 11/17/20 at 14:00; Status DC Sodium Bicarbonate (Sodium Bicarb Adult 8.4% Syr) 50 meq STK-MED ONCE .ROUTE ; Start 11/17/20 at 14:02; Stop 11/17/20 at 14:03; Status DC Sodium Bicarbonate (Sodium Bicarb Adult 8.4% Syr) 100 meq 1X ONCE IV Last administered on 11/17/20at 14:20; Start 11/17/20 at 14:15; Stop 11/17/20 at 14:16; Status DC Etomidate (Amidate) 12 mg 1X ONCE IV Last administered on 11/17/20at 14:15; Start 11/17/20 at 14:15; Stop 11/17/20 at 14:16; Status DC Succinylcholine Chloride (Anectine) 100 mg 1X ONCE IV Last administered on 08/27at 14:15; Start 11/17/20 at 14:15; Stop 11/17/20 at 14:16; Status DC Sodium Bicarbonate (Sodium Bicarb Adult 8.4% Syr) 100 meq 1X ONCE IV Last administered on 11/17/20at 14:15; Start 11/17/20 at 14:15; Stop 11/17/20 at 14:16; Status DC Epinephrine HCl 5 mg/Sodium Chloride 255 ml @ 24.266 mls/ hr CONT PRN IV SEE I/O RECORD Last administered on 11/17/20at 19:44; Start 11/17/20 at 14:45; Stop 11/17/20 at 20:00; Status DC Pantoprazole Sodium (PROTONIX VIAL for IV PUSH) 40 mg DAILYAC IVP Last administ ered on 11/19/20at 08:08; Start 11/18/20 at 07:30 Albumin Human 500 ml @ 125 mls/hr 1X ONCE IV Last administered on 11/17/20at 15:44; Start 11/17/20 at 15:15; Stop 11/17/20 at 19:14; Status DC Digoxin (Lanoxin) 500 mcg 1X ONCE IV Last administered on 11/17/20at 15:43; Start 11/17/20 at 15:30; Stop 11/17/20 at 15:31; Status DC Lidocaine HCl (Xylocaine 2% Topical 5gm Tube) 5 makenna STK-MED ONCE TP ; Start 11/16/20 at 12:00; Stop 11/17/20 at 15:35; Status DC Calcium Gluconate 1000 mg/Sodium Chloride 110 ml @ 220 mls/hr 1X ONCE IV Last administered on 11/17/20at 17:36; Start 11/17/20 at 17:15; Stop 11/17/20 at 17:44; Status DC Linezolid/Dextrose 300 ml @ 300 mls/hr Q12HR IV ; Start 11/17/20 at 21:00; Status Cancel Linezolid/Dextrose 300 ml @ 300 mls/hr Q12HR IV ; Start 11/17/20 at 21:00; Status UNV Linezolid/Dextrose 300 ml @ 300 mls/hr Q12HR IV Last administered on 11/19/20at 08:58; Start 11/17/20 at 18:00 Epinephrine HCl 10 mg/Sodium Chloride 250 ml @ 11.85 mls/ hr CONT PRN IV SEE I/O RECORD Last administered on 11/17/20at 22:09; Start 11/17/20 at 17:30 Vecuronium [place] (Norcuron Bolus) 6 mg PRN Q2HR PRN IV Vent management Last administered on 11/17/20at 22:11; Start 11/17/20 at 20:00 Lidocaine HCl (Buffered Lidocaine 1%) 3 ml STK-MED ONCE .ROUTE ; Start 11/18/20 at 09:21; Stop 11/18/20 at 09:22; Status DC Lidocaine HCl (Buffered Lidocaine 1%) 6 ml 1X ONCE INJ Last administered on 11/18/20at 09:53; Start 11/18/20 at 09:45; Stop 11/18/20 at 09:46; Status DC Potassium Chloride 15 meq/ Bicarbonate Dialysis Soln w/ out KCl 5,007.5 ml @ 1,250 mls/ hr Q4H1M IV Last administered on 11/19/20at 13:28; Start 11/18/20 at 11:00 Potassium Chloride 15 meq/ Bicarbonate Dialysis Soln w/ out KCl 5,007.5 ml @ 1,250 mls/ hr Q4H1M IV Last administered on 11/19/20at 13:28; Start 11/18/20 at 11:00 Potassium Chloride 15 meq/ Bicarbonate Dialysis Soln w/ out KCl 5,007.5 ml @ 1,250 mls/ hr Q4H1M IV Last administered on 11/19/20at 13:28; Start 11/18/20 at 11:00 Tranexamic Acid 50 ml @ 50 mls/hr Q12HR INJ Last administered on 11/19/20at 08:57; Start 11/18/20 at 13:00 Daptomycin 390 mg/ Sodium Chloride 50 ml @ 100 mls/hr Q48H IV ; Start 11/20/20 at 13:00; Stop 11/18/20 at 16:23; Status DC Meropenem 500 mg/ Sodium Chloride 50 ml @ 100 mls/hr DAILY IV ; Start 11/19/20 at 09:00; Stop 11/18/20 at 16:16; Status DC Prothrombin Complex Concent (Human) 2000 unit/ Miscellaneous 80 ml @ 160 mls/hr 1X ONCE IV Last administered on 11/18/20at 14:48; Start 11/18/20 at 14:30; Stop 11/18/20 at 14:59; Status DC Meropenem 1 gm/ Sodium Chloride 100 ml @ 200 mls/hr Q12HR IV Last administered on 11/19/20at 08:57; Start 11/18/20 at 21:00 Daptomycin 500 mg/ Sodium Chloride 50 ml @ 100 mls/hr Q48H IV ; Start 11/19/20 at 21:00 Sodium Phosphate 20 mmol/Sodium Chloride 256.6667 ml @ 64.167 m... 1X ONCE IV Last administered on 11/19/20at 13:54; Start 11/19/20 at 12:30; Stop 11/19/20 at 16:29 Active Scripts Active Amiodarone Hcl 200 Mg Tablet 200 Mg PO DAILY 30 Days Eliquis (Apixaban) 5 Mg Tablet 5 Mg PO BID 30 Days Doxycycline Hyclate 100 Mg Tablet 100 Mg PO BID 5 Days Klor-Con M20 (Potassium Chloride) 20 Meq Tab.er.prt 20 Meq PO DAILYWBKFT 30 Days Furosemide 40 Mg Tablet 40 Mg PO DAILY 30 Days Reported Omeprazole 20 Mg Capsule.dr 1 Cap PO DAILY Metoprolol Tartrate 25 Mg Tablet 1 Tab PO BID Feosol (Ferrous Sulfate) 325 Mg Tablet 325 Mg PO DAILY Aspirin 325 Mg Tablet 1 Tab PO DAILY Amitriptyline Hcl 50 Mg Tablet 1 Tab PO QHS Ultram (Tramadol Hcl) 50 Mg Tablet 1 Tab PO Q6HRS PRN Dulera 100 Mcg/5 Mcg Inhaler (Mometasone/Formoterol) 13 Gm Hfa.aer.ad 2 Puff IH BID Lidoderm (Lidocaine) 700 Mg Adh..patch 1 Patch TP DAILY PRN Neurontin (Gabapentin) 300 Mg Capsule 2 Cap PO BID Flonase (Fluticasone Propionate) 16 Gm Wortham.susp 2 Wortham NS DAILY Cyclobenzaprine Hcl 10 Mg Tablet 1 Tab PO TID PRN Celexa (Citalopram Hydrobromide) 40 Mg Tablet 1 Tab PO DAILY Cetirizine Hcl 10 Mg Tablet 1 Tab PO DAILY Proair Hfa Inhaler (Albuterol Sulfate) 8.5 Gm Hfa.aer.ad 2 Puff IH PRN Q4-6HRS Vitals/I & O Vital Sign - Last 24 Hours 11/18/20 11/18/20 11/18/20 11/18/20 15:44 16:00 16:00 16:00 Temp 97.6 97.6 Pulse 96 96 B/P (MAP) 125/74 (91) 125/74 (91) Pulse Ox 99 O2 Delivery Ventilator Ventilator Mechanical Ventilator 11/18/20 11/18/20 11/18/20 11/18/20 16:30 17:00 18:00 19:00 Pulse 90 92 98 Resp B/P (MAP) 107/66 (80) 112/66 (81) 116/72 (87) Pulse Ox 99 98 97 92 O2 Delivery Ventilator Ventilator Ventilator Ventilator 11/18/20 11/18/20 11/18/20 11/18/20 20:00 20:00 20:00 21:00 Temp 95.8 95.8 Pulse 99 100 B/P (MAP) 101/60 (74) 98/58 (71) Pulse Ox 98 100 O2 Delivery Ventilator Mechanical Ventilator Ventilator 11/18/20 11/18/20 11/18/20 11/18/20 21:18 22:00 22:17 23:00 Pulse 99 99 Resp B/P (MAP) 98/59 (72) 95/59 (71) Pulse Ox 92 95 96 100 O2 Delivery Ventilator Ventilator Ventilator Ventilator 11/18/20 11/19/20 11/19/20 11/19/20 23:17 00:00 00:00 00:00 B/P (MAP) Pulse Ox 98 97 O2 Delivery Ventilator Mechanical Ventilator Ventilator 11/19/20 11/19/20 11/19/20 11/19/20 00:00 01:00 02:00 03:00 Temp 97.4 97.4 Pulse 84 103 105 105 Resp 26 B/P (MAP) 97/55 (69) 93/57 (69) 89/57 (68) 87/55 (66) Pulse Ox 95 93 92 95 O2 Delivery Ventilator Ventilator Ventilator Ventilator 11/19/20 11/19/20 11/19/20 11/19/20 04:00 04:00 04:00 04:32 Temp 97.5 97.5 Pulse 95 Resp 26 B/P (MAP) 92/55 (67) Pulse Ox 98 97 O2 Delivery Mechanical Ventilator Ventilator Ventilator 11/19/20 11/19/20 11/19/20 11/19/20 05:00 06:00 06:16 06:54 Pulse 90 97 Resp 26 26 26 26 B/P (MAP) 101/59 (73) 93/56 (68) Pulse Ox 100 100 100 100 O2 Delivery Ventilator Ventilator Ventilator Ventilator 11/19/20 11/19/20 11/19/20 11/19/20 07:00 07:58 08:00 08:00 Pulse 96 91 Resp 25 B/P (MAP) 98/60 (73) 102/58 (73) Pulse Ox 100 100 O2 Delivery Ventilator Ventilator Mechanical Ventilator 11/19/20 11/19/20 11/19/20 11/19/20 08:00 09:00 10:00 10:40 Temp 97.2 97.2 Pulse 91 95 108 Resp 16 16 20 20 B/P (MAP) 101/59 (73) 103/61 (75) 105/68 (80) Pulse Ox 100 100 99 99 O2 Delivery Ventilator Ventilator Ventilator Ventilator 11/19/20 11/19/20 11/19/20 11/19/20 11:00 11:17 11:56 12:00 Temp 97.5 97.5 Pulse 109 98 Resp 22 22 22 B/P (MAP) 103/66 (78) 94/52 (66) Pulse Ox 95 96 98 98 O2 Delivery Ventilator Ventilator Ventilator Ventilator 11/19/20 11/19/20 11/19/20 11/19/20 12:00 12:00 13:00 14:00 Pulse 99 88 88 Resp 24 24 B/P (MAP) 91/52 (65) 108/58 (75) 160/83 (108) Pulse Ox 97 95 O2 Delivery Mechanical Ventilator Ventilator Ventilator 11/19/20 15:00 Pulse 97 Resp 27 B/P (MAP) 118/62 (80) Pulse Ox 93 O2 Delivery Ventilator Intake and Output 11/18/20 11/18/20 11/19/20 15:00 23:00 07:00 Intake Total 450 ml 1421 ml 1380.9 ml Output Total 100 ml 455 ml 50 ml Balance 350 ml 966 ml 1330.9 ml Justifications for Admission Other Justification chf exacerbation OBI CORADO MD Nov 19, 2020 15:09
[2020-11-19] MEDS ORDERED: IV NORMAL SALINE 1000ML BAG 1,000 ML IV SCH (15:30)
[2020-11-19 17:38] LABS: PROTHROMBIN TIME PATIENT 24.4 SEC (11.7-14.0)
[2020-11-19 18:02] LABS: ALBUMIN 2.5 g/dL (3.4-5.0); ALBUMIN/GLOBULIN RATIO 0.8 (1.0-1.7); CALCIUM 7.9 mg/dL (8.5-10.1); CREATININE 1.1 mg/dL (0.6-1.0); GFR 66.9; MAGNESIUM 2.4 mg/dL (1.8-2.4); PHOSPHORUS 2.8 mg/dL (2.6-4.7); POTASSIUM 3.4 mmol/L (3.5-5.1); TOTAL BILIRUBIN 5.6 mg/dL (0.2-1.0); TOTAL PROTEIN 5.6 g/dL (6.4-8.2)
--- NOTE | 2020-11-19 20:36 | NUR ---
Pulse ox probe placed on right toe for continuous pulse monitoring distal to femoral arterial line.
[2020-11-19] MEDS: DAPTOmycin (GENERIC) IVPB 500 MG in IV NORMAL SALINE 50ML 50 ML IV SCH (20:48)
[2020-11-19] MEDS: fentaNYL HIGH DOSE PCA 55 ML IV PRN (22:23)
[2020-11-20] VITALS (25 sets, daily range): BP systolic 104–138; BP diastolic 52–79
[2020-11-20 00:33] LABS: ALBUMIN 2.4 g/dL (3.4-5.0); ALBUMIN/GLOBULIN RATIO 0.7 (1.0-1.7); CREATININE 1.1 mg/dL (0.6-1.0); TOTAL PROTEIN 5.8 g/dL (6.4-8.2)
[2020-11-20 00:34] LABS: GFR 66.9; MAGNESIUM 2.4 mg/dL (1.8-2.4); POTASSIUM 3.3 mmol/L (3.5-5.1); TOTAL BILIRUBIN 5.4 mg/dL (0.2-1.0)
[2020-11-20] MEDS: POTASSIUM CHLORIDE 15 MEQ in DIALYSIS SOLUTION BGK 0/2.5 5,000 ML IV SCH ×18 (01:51→22:57)
[2020-11-20] MEDS: HYDROCORTISONE SOD SUCC/PF 100 MG/2 ML VIAL. IVP SCH ×3 (05:34→21:36)
[2020-11-20 06:11] LABS: HEMATOCRIT 26.9 % (36.0-47.0); HEMOGLOBIN 8.1 g/dL (12.0-15.5); RED BLOOD COUNT 4.19 x10^6/uL (3.50-5.40); RED CELL DISTRIBUTION WIDTH 25.6 % (11.5-14.5); WHITE BLOOD COUNT 18.1 x10^3/uL (4.0-11.0)
[2020-11-20 06:37] LABS: ALBUMIN 2.6 g/dL (3.4-5.0); ALBUMIN/GLOBULIN RATIO 0.7 (1.0-1.7); CALCIUM 8.4 mg/dL (8.5-10.1); CREATININE 0.9 mg/dL (0.6-1.0); GFR 84.3; MAGNESIUM 2.6 mg/dL (1.8-2.4); POTASSIUM 3.4 mmol/L (3.5-5.1); TOTAL BILIRUBIN 5.7 mg/dL (0.2-1.0); TOTAL PROTEIN 6.4 g/dL (6.4-8.2)
[2020-11-20 07:14] LABS: PROTHROMBIN TIME PATIENT 20.6 SEC (11.7-14.0)
[2020-11-20] MEDS: IPRATRPIUM/ALBUTEROL 0.5/2.5MG 3 ML NEBU. NEB SCH ×4 (08:00→20:34)
[2020-11-20] MEDS: BUDESONIDE 0.5 MG/2 ML NEBU. NEB SCH ×2 (08:00→20:34)
[2020-11-20 08:10] LABS: BASE EXCESS ABG -1 mmol/L (-3-3); HCO3 ABG 23 mmol/L (21-28); PCO2 ABG 37 mmHg (35-46); PO2 ABG 193 mmHg (75-108); SAT O2 ABG 99 % (92-99)
[2020-11-20 08:40] LABS: FIO2 ABG 40%+6
--- NOTE | 2020-11-20 08:56 | PDOC ---
CARDIOLOGY PROGRESS NOTE SUBJECTIVE: No events overnight. Off pressors now. Stable on CRRT OBJECTIVE: Vital Signs/I&O: -2.5 L VSS Objective: sedated, non responsive Irregular heart tones trace edema soft abdomen CURRENT MEDICATIONS: No CV meds ongoing DIAGNOSTIC TESTING: Labs reviewed. Labs: Laboratory Tests 11/20/20 06:00 Laboratory Tests Test 11/19/20 11:49 11/19/20 17:15 11/20/20 00:09 11/20/20 06:00 Prothrombin Time 27.6 SEC (11.7-14.0) H 24.4 SEC (11.7-14.0) H 20.6 SEC (11.7-14.0) H Prothromb Time International Ratio 2.6 (0.8-1.1) H 2.2 (0.8-1.1) H 1.8 (0.8-1.1) H Sodium Level 133 mmol/L (136-145) L 134 mmol/L (136-145) L 136 mmol/L (136-145) 135 mmol/L (136-145) L Potassium Level 3.5 mmol/L (3.5-5.1) 3.4 mmol/L (3.5-5.1) L 3.3 mmol/L (3.5-5.1) L 3.4 mmol/L (3.5-5.1) L Chloride Level 99 mmol/L (98-107) 100 mmol/L (98-107) 101 mmol/L (98-107) 100 mmol/L (98-107) Carbon Dioxide Level 26 mmol/L (21-32) 27 mmol/L (21-32) 25 mmol/L (21-32) 25 mmol/L (21-32) Anion Gap 8 (6-14) 7 (6-14) 10 (6-14) 10 (6-14) Blood Urea Nitrogen 22 mg/dL (7-20) H 19 mg/dL (7-20) 16 mg/dL (7-20) 14 mg/dL (7-20) Creatinine 1.3 mg/dL (0.6-1.0) H 1.1 mg/dL (0.6-1.0) H 1.1 mg/dL (0.6-1.0) H 0.9 mg/dL (0.6-1.0) Estimated GFR (Cockcroft-Gault) 55.2 66.9 66.9 84.3 BUN/Creatinine Ratio 17 (6-20) 17 (6-20) 15 (6-20) 16 (6-20) Glucose Level 141 mg/dL (70-99) H 101 mg/dL (70-99) H 123 mg/dL (70-99) H 112 mg/dL (70-99) H Lactic Acid Level 1.9 mmol/L (0.4-2.0) Calcium Level 7.9 mg/dL (8.5-10.1) L 7.9 mg/dL (8.5-10.1) L 8.0 mg/dL (8.5-10.1) L 8.4 mg/dL (8.5-10.1) L Phosphorus Level 1.9 mg/dL (2.6-4.7) L 2.8 mg/dL (2.6-4.7) 2.0 mg/dL (2.6-4.7) L 2.1 mg/dL (2.6-4.7) L Total Bilirubin 5.3 mg/dL (0.2-1.0) H 5.6 mg/dL (0.2-1.0) H 5.4 mg/dL (0.2-1.0) H 5.7 mg/dL (0.2-1.0) H Aspartate Amino Transf (AST/SGOT) 249 U/L (15-37) H 244 U/L (15-37) H 216 U/L (15-37) H 221 U/L (15-37) H Alkaline Phosphatase 117 U/L (46-116) H 117 U/L (46-116) H 120 U/L (46-116) H 134 U/L (46-116) H Total Protein 5.5 g/dL (6.4-8.2) L 5.6 g/dL (6.4-8.2) L 5.8 g/dL (6.4-8.2) L 6.4 g/dL (6.4-8.2) Albumin 2.3 g/dL (3.4-5.0) L 2.5 g/dL (3.4-5.0) L 2.4 g/dL (3.4-5.0) L 2.6 g/dL (3.4-5.0) L Albumin/Globulin Ratio 0.7 (1.0-1.7) L 0.8 (1.0-1.7) L 0.7 (1.0-1.7) L 0.7 (1.0-1.7) L White Blood Count 18.1 x10^3/uL (4.0-11.0) H Red Blood Count 4.19 x10^6/uL (3.50-5.40) Hemoglobin 8.1 g/dL (12.0-15.5) L Hematocrit 26.9 % (36.0-47.0) L Mean Corpuscular Volume 64 fL (79-100) L Mean Corpuscular Hemoglobin 19 pg (25-35) L Mean Corpuscular Hemoglobin Concent 30 g/dL (31-37) L Red Cell Distribution Width 25.6 % (11.5-14.5) H Platelet Count 133 x10^3/uL (140-400) L Fibrinogen 277 mg/dL (200-440) Test 11/20/20 07:45 O2 Saturation 99 % (92-99) Arterial Blood pH 7.42 (7.35-7.45) Arterial Blood pCO2 at Patient Temp 37 mmHg (35-46) Arterial Blood pO2 at Patient Temp 193 mmHg (75-108) H Arterial Blood HCO3 23 mmol/L (21-28) Arterial Blood Base Excess -1 mmol/L (-3-3) FiO2 40%+6 ASSESSMENT: 1. Acute on chronic systolic and diastolic HF 2. 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 KENNETH on CRRT for volume mgmt. 4. Cardiogenic shock due to right heart failure, improved PLAN: 1. CVP is around 20, continue fluid removal through CRRT. Aim for a goal CVP of 10-12. Will tentatively plan for a right heart cath in next 24-48 hours and possible SAMMY/CVN prior to extubation to help optimize her hemodynamics. 2. Maintain off anticoagulation for now. Consider hep gtt post cardioversion after bleeding issues resolve. 3. Off pressors, hemodynamics improved. Supportive care. Thanks Justicifation of Admission Dx: Justifications for Admission: Justification of Admission Dx: Yes CHF: Cardiac Arrhythmias CHAYO LOCKWOOD MD Nov 20, 2020 08:56
[2020-11-20] MEDS: FLUTICASONE 50MCG/NASAL SPRAY 16GM BOTTLE. NS SCH (09:00)
[2020-11-20] MEDS: GABAPENTIN 300 MG CAPSULE. PO SCH ×2 (09:20→20:35)
[2020-11-20] MEDS: PANTOPRAZOLE IV PUSH 40 MG VIAL. IVP SCH (09:20)
[2020-11-20] MEDS: CITALOPRAM 20 MG TABLET. PO SCH (09:20)
[2020-11-20] MEDS: MEROPENEM 1 GM in IV NORMAL SALINE 100ML 100 ML IV SCH ×2 (09:21→20:25)
[2020-11-20] MEDS: THIAMINE 100 MG TABLET. PO SCH ×3 (09:21→20:35)
[2020-11-20] MEDS: TRANEXAMIC ACID in NS IVPB 50 ML INJ SCH ×2 (09:22→21:08)
--- NOTE | 2020-11-20 09:46 | PDOC ---
SURGICAL PROGRESS NOTE DATE: 11/20/20 TIME: 09:45 Subjective Patient sedated and intubated Vital Signs Vital Signs Date Time Temp Pulse Resp B/P (MAP) Pulse Ox O2 Delivery O2 Flow Rate FiO2 11/20/20 09:00 75 18 137/72 (93) 98 Ventilator 11/20/20 08:00 93.5 93.5 I&O Intake and Output 11/20/20 07:00 Intake Total 1887.1 ml Output Total 81 ml Balance 1806.1 ml IV Total 1887.1 ml Output Urine Total 81 ml PATIENT HAS A NASCIMENTO: Yes General: Other (Sedated and intubated) Abdomen: Normal bowel sounds, Soft, Other (Minimal OG output) Labs Laboratory Tests Test 11/18/20 10:20 11/18/20 10:50 11/18/20 15:20 11/18/20 18:30 O2 Saturation 100 % (92-99) 99 % (92-99) Arterial Blood pH 7.32 (7.35-7.45) 7.39 (7.35-7.45) Arterial Blood pCO2 at Patient Temp 31 mmHg (35-46) 30 mmHg (35-46) Arterial Blood pO2 at Patient Temp 266 mmHg (75-108) 216 mmHg (75-108) Arterial Blood HCO3 16 mmol/L (21-28) 18 mmol/L (21-28) Arterial Blood Base Excess -10 mmol/L (-3-3) -6 mmol/L (-3-3) FiO2 100 70 Hemoglobin 8.0 g/dL (12.0-15.5) 8.2 g/dL (12.0-15.5) Hematocrit 28.2 % (36.0-47.0) 27.1 % (36.0-47.0) Mean Corpuscular Hemoglobin Concent 29 g/dL (31-37) 30 g/dL (31-37) White Blood Count 26.5 x10^3/uL (4.0-11.0) Red Blood Count 4.15 x10^6/uL (3.50-5.40) Mean Corpuscular Volume 65 fL (79-100) Mean Corpuscular Hemoglobin 20 pg (25-35) Red Cell Distribution Width 25.2 % (11.5-14.5) Platelet Count 192 x10^3/uL (140-400) Neutrophils (%) (Auto) 88 % (31-73) Lymphocytes (%) (Auto) 6 % (24-48) Monocytes (%) (Auto) 5 % (0-9) Eosinophils (%) (Auto) 0 % (0-3) Basophils (%) (Auto) 1 % (0-3) Neutrophils # (Auto) 23.3 x10^3/uL (1.8-7.7) Lymphocytes # (Auto) 1.7 x10^3/uL (1.0-4.8) Monocytes # (Auto) 1.2 x10^3/uL (0.0-1.1) Eosinophils # (Auto) 0.0 x10^3/uL (0.0-0.7) Basophils # (Auto) 0.2 x10^3/uL (0.0-0.2) Sodium Level 130 mmol/L (136-145) Potassium Level 4.4 mmol/L (3.5-5.1) Chloride Level 96 mmol/L (98-107) Carbon Dioxide Level 23 mmol/L (21-32) Anion Gap 11 (6-14) Blood Urea Nitrogen 40 mg/dL (7-20) Creatinine 2.1 mg/dL (0.6-1.0) Estimated GFR (Cockcroft-Gault) 31.7 Glucose Level 115 mg/dL (70-99) Calcium Level 8.1 mg/dL (8.5-10.1) Phosphorus Level 3.9 mg/dL (2.6-4.7) Magnesium Level 2.2 mg/dL (1.8-2.4) Test 11/19/20 01:20 11/19/20 06:20 11/19/20 08:05 11/19/20 11:49 White Blood Count 18.4 x10^3/uL (4.0-11.0) 16.6 x10^3/uL (4.0-11.0) Red Blood Count 3.86 x10^6/uL (3.50-5.40) 3.71 x10^6/uL (3.50-5.40) Hemoglobin 7.5 g/dL (12.0-15.5) 7.2 g/dL (12.0-15.5) Hematocrit 25.3 % (36.0-47.0) 23.9 % (36.0-47.0) Mean Corpuscular Volume 66 fL (79-100) 64 fL (79-100) Mean Corpuscular Hemoglobin 19 pg (25-35) 19 pg (25-35) Mean Corpuscular Hemoglobin Concent 30 g/dL (31-37) 30 g/dL (31-37) Red Cell Distribution Width 25.6 % (11.5-14.5) 25.1 % (11.5-14.5) Platelet Count 163 x10^3/uL (140-400) 148 x10^3/uL (140-400) Neutrophils (%) (Auto) 91 % (31-73) 90 % (31-73) Lymphocytes (%) (Auto) 4 % (24-48) 4 % (24-48) Monocytes (%) (Auto) 6 % (0-9) 6 % (0-9) Eosinophils (%) (Auto) 0 % (0-3) 0 % (0-3) Basophils (%) (Auto) 0 % (0-3) 0 % (0-3) Neutrophils # (Auto) 16.7 x10^3/uL (1.8-7.7) 14.9 x10^3/uL (1.8-7.7) Lymphocytes # (Auto) 0.6 x10^3/uL (1.0-4.8) 0.6 x10^3/uL (1.0-4.8) Monocytes # (Auto) 1.0 x10^3/uL (0.0-1.1) 1.0 x10^3/uL (0.0-1.1) Eosinophils # (Auto) 0.0 x10^3/uL (0.0-0.7) 0.0 x10^3/uL (0.0-0.7) Basophils # (Auto) 0.0 x10^3/uL (0.0-0.2) 0.0 x10^3/uL (0.0-0.2) Sodium Level 132 mmol/L (136-145) 134 mmol/L (136-145) 133 mmol/L (136-145) Potassium Level 4.4 mmol/L (3.5-5.1) 3.9 mmol/L (3.5-5.1) 3.5 mmol/L (3.5-5.1) Chloride Level 98 mmol/L (98-107) 100 mmol/L (98-107) 99 mmol/L (98-107) Carbon Dioxide Level 23 mmol/L (21-32) 24 mmol/L (21-32) 26 mmol/L (21-32) Anion Gap 11 (6-14) 10 (6-14) 8 (6-14) Blood Urea Nitrogen 32 mg/dL (7-20) 26 mg/dL (7-20) 22 mg/dL (7-20) Creatinine 1.7 mg/dL (0.6-1.0) 1.5 mg/dL (0.6-1.0) 1.3 mg/dL (0.6-1.0) Estimated GFR (Cockcroft-Gault) 40.5 46.8 55.2 Glucose Level 84 mg/dL (70-99) 97 mg/dL (70-99) 141 mg/dL (70-99) Calcium Level 8.0 mg/dL (8.5-10.1) 7.9 mg/dL (8.5-10.1) 7.9 mg/dL (8.5-10.1) Phosphorus Level 2.9 mg/dL (2.6-4.7) 2.4 mg/dL (2.6-4.7) 1.9 mg/dL (2.6-4.7) Magnesium Level 2.3 mg/dL (1.8-2.4) 2.3 mg/dL (1.8-2.4) 2.3 mg/dL (1.8-2.4) Creatine Kinase 357 U/L (26-192) BUN/Creatinine Ratio 17 (6-20) 17 (6-20) Total Bilirubin 5.2 mg/dL (0.2-1.0) 5.3 mg/dL (0.2-1.0) Aspartate Amino Transf (AST/SGOT) 242 U/L (15-37) 249 U/L (15-37) Alanine Aminotransferase (ALT/SGPT) 98 U/L (14-59) 112 U/L (14-59) Alkaline Phosphatase 107 U/L (46-116) 117 U/L (46-116) Total Protein 5.4 g/dL (6.4-8.2) 5.5 g/dL (6.4-8.2) Albumin 2.3 g/dL (3.4-5.0) 2.3 g/dL (3.4-5.0) Albumin/Globulin Ratio 0.7 (1.0-1.7) 0.7 (1.0-1.7) Hepatitis B Surface Antigen Nonreactive (Nonreactive) Hepatitis B Surface Antibody, Quant <3.1 mIU/mL (Immunity>9.9) O2 Saturation 99 % (92-99) Arterial Blood pH 7.53 (7.35-7.45) Arterial Blood pCO2 at Patient Temp 29 mmHg (35-46) Arterial Blood pO2 at Patient Temp 179 mmHg (75-108) Arterial Blood HCO3 24 mmol/L (21-28) Arterial Blood Base Excess 1 mmol/L (-3-3) FiO2 50 Prothrombin Time 27.6 SEC (11.7-14.0) Prothromb Time International Ratio 2.6 (0.8-1.1) Lactic Acid Level 1.9 mmol/L (0.4-2.0) Test 11/19/20 17:15 11/20/20 00:09 11/20/20 06:00 11/20/20 07:45 Prothrombin Time 24.4 SEC (11.7-14.0) 20.6 SEC (11.7-14.0) Prothromb Time International Ratio 2.2 (0.8-1.1) 1.8 (0.8-1.1) Sodium Level 134 mmol/L (136-145) 136 mmol/L (136-145) 135 mmol/L (136-145) Potassium Level 3.4 mmol/L (3.5-5.1) 3.3 mmol/L (3.5-5.1) 3.4 mmol/L (3.5-5.1) Chloride Level 100 mmol/L (98-107) 101 mmol/L (98-107) 100 mmol/L (98-107) Carbon Dioxide Level 27 mmol/L (21-32) 25 mmol/L (21-32) 25 mmol/L (21-32) Anion Gap 7 (6-14) 10 (6-14) 10 (6-14) Blood Urea Nitrogen 19 mg/dL (7-20) 16 mg/dL (7-20) 14 mg/dL (7-20) Creatinine 1.1 mg/dL (0.6-1.0) 1.1 mg/dL (0.6-1.0) 0.9 mg/dL (0.6-1.0) Estimated GFR (Cockcroft-Gault) 66.9 66.9 84.3 BUN/Creatinine Ratio 17 (6-20) 15 (6-20) 16 (6-20) Glucose Level 101 mg/dL (70-99) 123 mg/dL (70-99) 112 mg/dL (70-99) Calcium Level 7.9 mg/dL (8.5-10.1) 8.0 mg/dL (8.5-10.1) 8.4 mg/dL (8.5-10.1) Phosphorus Level 2.8 mg/dL (2.6-4.7) 2.0 mg/dL (2.6-4.7) 2.1 mg/dL (2.6-4.7) Magnesium Level 2.4 mg/dL (1.8-2.4) 2.4 mg/dL (1.8-2.4) 2.6 mg/dL (1.8-2.4) Total Bilirubin 5.6 mg/dL (0.2-1.0) 5.4 mg/dL (0.2-1.0) 5.7 mg/dL (0.2-1.0) Aspartate Amino Transf (AST/SGOT) 244 U/L (15-37) 216 U/L (15-37) 221 U/L (15-37) Alanine Aminotransferase (ALT/SGPT) 112 U/L (14-59) 108 U/L (14-59) 116 U/L (14-59) Alkaline Phosphatase 117 U/L (46-116) 120 U/L (46-116) 134 U/L (46-116) Total Protein 5.6 g/dL (6.4-8.2) 5.8 g/dL (6.4-8.2) 6.4 g/dL (6.4-8.2) Albumin 2.5 g/dL (3.4-5.0) 2.4 g/dL (3.4-5.0) 2.6 g/dL (3.4-5.0) Albumin/Globulin Ratio 0.8 (1.0-1.7) 0.7 (1.0-1.7) 0.7 (1.0-1.7) White Blood Count 18.1 x10^3/uL (4.0-11.0) Red Blood Count 4.19 x10^6/uL (3.50-5.40) Hemoglobin 8.1 g/dL (12.0-15.5) Hematocrit 26.9 % (36.0-47.0) Mean Corpuscular Volume 64 fL (79-100) Mean Corpuscular Hemoglobin 19 pg (25-35) Mean Corpuscular Hemoglobin Concent 30 g/dL (31-37) Red Cell Distribution Width 25.6 % (11.5-14.5) Platelet Count 133 x10^3/uL (140-400) Fibrinogen 277 mg/dL (200-440) O2 Saturation 99 % (92-99) Arterial Blood pH 7.42 (7.35-7.45) Arterial Blood pCO2 at Patient Temp 37 mmHg (35-46) Arterial Blood pO2 at Patient Temp 193 mmHg (75-108) Arterial Blood HCO3 23 mmol/L (21-28) Arterial Blood Base Excess -1 mmol/L (-3-3) FiO2 40%+6 Laboratory Tests Test 11/19/20 11:49 11/19/20 17:15 11/20/20 00:09 11/20/20 06:00 Prothrombin Time 27.6 SEC (11.7-14.0) 24.4 SEC (11.7-14.0) 20.6 SEC (11.7-14.0) Prothromb Time International Ratio 2.6 (0.8-1.1) 2.2 (0.8-1.1) 1.8 (0.8-1.1) Sodium Level 133 mmol/L (136-145) 134 mmol/L (136-145) 136 mmol/L (136-145) 135 mmol/L (136-145) Potassium Level 3.5 mmol/L (3.5-5.1) 3.4 mmol/L (3.5-5.1) 3.3 mmol/L (3.5-5.1) 3.4 mmol/L (3.5-5.1) Chloride Level 99 mmol/L (98-107) 100 mmol/L (98-107) 101 mmol/L (98-107) 100 mmol/L (98-107) Carbon Dioxide Level 26 mmol/L (21-32) 27 mmol/L (21-32) 25 mmol/L (21-32) 25 mmol/L (21-32) Anion Gap 8 (6-14) 7 (6-14) 10 (6-14) 10 (6-14) Blood Urea Nitrogen 22 mg/dL (7-20) 19 mg/dL (7-20) 16 mg/dL (7-20) 14 mg/dL (7-20) Creatinine 1.3 mg/dL (0.6-1.0) 1.1 mg/dL (0.6-1.0) 1.1 mg/dL (0.6-1.0) 0.9 mg/dL (0.6-1.0) Estimated GFR (Cockcroft-Gault) 55.2 66.9 66.9 84.3 BUN/Creatinine Ratio 17 (6-20) 17 (6-20) 15 (6-20) 16 (6-20) Glucose Level 141 mg/dL (70-99) 101 mg/dL (70-99) 123 mg/dL (70-99) 112 mg/dL (70-99) Lactic Acid Level 1.9 mmol/L (0.4-2.0) Calcium Level 7.9 mg/dL (8.5-10.1) 7.9 mg/dL (8.5-10.1) 8.0 mg/dL (8.5-10.1) 8.4 mg/dL (8.5-10.1) Phosphorus Level 1.9 mg/dL (2.6-4.7) 2.8 mg/dL (2.6-4.7) 2.0 mg/dL (2.6-4.7) 2.1 mg/dL (2.6-4.7) Magnesium Level 2.3 mg/dL (1.8-2.4) 2.4 mg/dL (1.8-2.4) 2.4 mg/dL (1.8-2.4) 2.6 mg/dL (1.8-2.4) Total Bilirubin 5.3 mg/dL (0.2-1.0) 5.6 mg/dL (0.2-1.0) 5.4 mg/dL (0.2-1.0) 5.7 mg/dL (0.2-1.0) Aspartate Amino Transf (AST/SGOT) 249 U/L (15-37) 244 U/L (15-37) 216 U/L (15-37) 221 U/L (15-37) Alanine Aminotransferase (ALT/SGPT) 112 U/L (14-59) 112 U/L (14-59) 108 U/L (14-59) 116 U/L (14-59) Alkaline Phosphatase 117 U/L (46-116) 117 U/L (46-116) 120 U/L (46-116) 134 U/L (46-116) Total Protein 5.5 g/dL (6.4-8.2) 5.6 g/dL (6.4-8.2) 5.8 g/dL (6.4-8.2) 6.4 g/dL (6.4-8.2) Albumin 2.3 g/dL (3.4-5.0) 2.5 g/dL (3.4-5.0) 2.4 g/dL (3.4-5.0) 2.6 g/dL (3.4-5.0) Albumin/Globulin Ratio 0.7 (1.0-1.7) 0.8 (1.0-1.7) 0.7 (1.0-1.7) 0.7 (1.0- 1.7) White Blood Count 18.1 x10^3/uL (4.0-11.0) Red Blood Count 4.19 x10^6/uL (3.50-5.40) Hemoglobin 8.1 g/dL (12.0-15.5) Hematocrit 26.9 % (36.0-47.0) Mean Corpuscular Volume 64 fL (79-100) Mean Corpuscular Hemoglobin 19 pg (25-35) Mean Corpuscular Hemoglobin Concent 30 g/dL (31-37) Red Cell Distribution Width 25.6 % (11.5-14.5) Platelet Count 133 x10^3/uL (140-400) Fibrinogen 277 mg/dL (200-440) Test 11/20/20 07:45 O2 Saturation 99 % (92-99) Arterial Blood pH 7.42 (7.35-7.45) Arterial Blood pCO2 at Patient Temp 37 mmHg (35-46) Arterial Blood pO2 at Patient Temp 193 mmHg (75-108) Arterial Blood HCO3 23 mmol/L (21-28) Arterial Blood Base Excess -1 mmol/L (-3-3) FiO2 40%+6 Problem List Problems Medical Problems: (1) KENNETH (acute kidney injury) Status: Acute (2) Atrial fibrillation with RVR Status: Acute (3) CHF (congestive heart failure) Status: Acute (4) Hypoglycemia Status: Acute (5) Pneumonia Status: Acute Assessment/Plan Heart failure with venous congestion appears to be improving with dialysis No surgical issues at this time will sign off, if needed in the future please reconsult Justicifation of Admission Dx: Justifications for Admission: Justification of Admission Dx: Yes CHF: Cardiac Arrhythmias SHRUTHI WALLS MD Nov 20, 2020 09:46
--- NOTE | 2020-11-20 10:45 | PDOC ---
Infectious Disease Note Subjective: Subjective Patient intubated /sedated hypothermic Off pressure support Undergoing CRRT On Caridad angelitohany Discussed with RN Vital Signs: Vital Signs Vital Signs Date Time Temp Pulse Resp B/P (MAP) Pulse Ox O2 Delivery O2 Flow Rate FiO2 11/20/20 10:00 74 25 114/52 (72) 100 Ventilator 11/20/20 08:00 93.5 93.5 Physical Exam: PHYSICAL EXAM GENERAL: Intubated/sedated HEENT ETT/OGT tube present Neck Right IJ, left HDC, clean LUNGS: Bibasilar Rales HEART: Irregular. ABDOMEN: Mildly distended hypoactive bowel sounds EXTREMITIES: edema bilaterally. NEUROLOGIC: Intubated right femoral arterial line present DERM mottled skin Medications: Inpatient Meds: Medications reviewed. Labs: Lab Laboratory Tests Test 11/19/20 11:49 11/19/20 17:15 11/20/20 00:09 11/20/20 06:00 Prothrombin Time 27.6 SEC (11.7-14.0) 24.4 SEC (11.7-14.0) 20.6 SEC (11.7-14.0) Prothromb Time International Ratio 2.6 (0.8-1.1) 2.2 (0.8-1.1) 1.8 (0.8-1.1) Sodium Level 133 mmol/L (136-145) 134 mmol/L (136-145) 136 mmol/L (136-145) 135 mmol/L (136-145) Potassium Level 3.5 mmol/L (3.5-5.1) 3.4 mmol/L (3.5-5.1) 3.3 mmol/L (3.5-5.1) 3.4 mmol/L (3.5-5.1) Chloride Level 99 mmol/L (98-107) 100 mmol/L (98-107) 101 mmol/L (98-107) 100 mmol/L (98-107) Carbon Dioxide Level 26 mmol/L (21-32) 27 mmol/L (21-32) 25 mmol/L (21-32) 25 mmol/L (21-32) Anion Gap 8 (6-14) 7 (6-14) 10 (6-14) 10 (6-14) Blood Urea Nitrogen 22 mg/dL (7-20) 19 mg/dL (7-20) 16 mg/dL (7-20) 14 mg/dL (7-20) Creatinine 1.3 mg/dL (0.6-1.0) 1.1 mg/dL (0.6-1.0) 1.1 mg/dL (0.6-1.0) 0.9 mg/dL (0.6-1.0) Estimated GFR (Cockcroft-Gault) 55.2 66.9 66.9 84.3 BUN/Creatinine Ratio 17 (6-20) 17 (6-20) 15 (6-20) 16 (6-20) Glucose Level 141 mg/dL (70-99) 101 mg/dL (70-99) 123 mg/dL (70-99) 112 mg/dL (70-99) Lactic Acid Level 1.9 mmol/L (0.4-2.0) Calcium Level 7.9 mg/dL (8.5-10.1) 7.9 mg/dL (8.5-10.1) 8.0 mg/dL (8.5-10.1) 8.4 mg/dL (8.5-10.1) Phosphorus Level 1.9 mg/dL (2.6-4.7) 2.8 mg/dL (2.6-4.7) 2.0 mg/dL (2.6-4.7) 2.1 mg/dL (2.6-4.7) Magnesium Level 2.3 mg/dL (1.8-2.4) 2.4 mg/dL (1.8-2.4) 2.4 mg/dL (1.8-2.4) 2.6 mg/dL (1.8-2.4) Total Bilirubin 5.3 mg/dL (0.2-1.0) 5.6 mg/dL (0.2-1.0) 5.4 mg/dL (0.2-1.0) 5.7 mg/dL (0.2-1.0) Aspartate Amino Transf (AST/SGOT) 249 U/L (15-37) 244 U/L (15-37) 216 U/L (15-37) 221 U/L (15-37) Alanine Aminotransferase (ALT/SGPT) 112 U/L (14-59) 112 U/L (14-59) 108 U/L (14-59) 116 U/L (14-59) Alkaline Phosphatase 117 U/L (46-116) 117 U/L (46-116) 120 U/L (46-116) 134 U/L (46-116) Total Protein 5.5 g/dL (6.4-8.2) 5.6 g/dL (6.4-8.2) 5.8 g/dL (6.4-8.2) 6.4 g/dL (6.4-8.2) Albumin 2.3 g/dL (3.4-5.0) 2.5 g/dL (3.4-5.0) 2.4 g/dL (3.4-5.0) 2.6 g/dL (3.4-5.0) Albumin/Globulin Ratio 0.7 (1.0-1.7) 0.8 (1.0-1.7) 0.7 (1.0-1.7) 0.7 (1.0- 1.7) White Blood Count 18.1 x10^3/uL (4.0-11.0) Red Blood Count 4.19 x10^6/uL (3.50-5.40) Hemoglobin 8.1 g/dL (12.0-15.5) Hematocrit 26.9 % (36.0-47.0) Mean Corpuscular Volume 64 fL (79-100) Mean Corpuscular Hemoglobin 19 pg (25-35) Mean Corpuscular Hemoglobin Concent 30 g/dL (31-37) Red Cell Distribution Width 25.6 % (11.5-14.5) Platelet Count 133 x10^3/uL (140-400) Fibrinogen 277 mg/dL (200-440) Test 11/20/20 07:45 O2 Saturation 99 % (92-99) Arterial Blood pH 7.42 (7.35-7.45) Arterial Blood pCO2 at Patient Temp 37 mmHg (35-46) Arterial Blood pO2 at Patient Temp 193 mmHg (75-108) Arterial Blood HCO3 23 mmol/L (21-28) Arterial Blood Base Excess -1 mmol/L (-3-3) FiO2 40%+6 Objective: Assessment: Patient currently in multiorgan failure 1. Severe sepsis 2. Leukocytosis and lactic acidosis. 3. Acute kidney injury with severe metabolic acidosis. 4. Abdominal pain, intermittent nausea.Colitis on CT abdomen, 5. Atrial fibrillation/flutter. 6. Acute on chronic congestive heart failure. 7. Coagulopathy. 8. Abnormal liver function tests , hyperbilirubinemia 9. Acute respiratory failure status post intubation 10. Pulmonary hypertension. 11. Valvular insufficiency. MR, severe TR, hepatic congestion 12. History of PFO closure. COVID-19 negative Plan: Plan of Care Continue Dapto, Merrem, micafungin and Zyvox awaiting RT Cardiac cath tomorrow Monitor labs and cultures. Continue supportive care. Critically ill Prognosis very poor Discussed with nursing staff MEGAN MEHTA MD Nov 20, 2020 10:45
--- NOTE | 2020-11-20 10:56 | PDOC ---
DATE OF SERVICE DATE: 11/20/20 TIME: 10:49 SUBJECTIVE ROS On CRRT, No concerns voiced by nursing .remains Intubated OBJECTIVE Vital Signs Vital Signs Date Time Temp Pulse Resp B/P (MAP) Pulse Ox O2 Delivery O2 Flow Rate FiO2 11/20/20 10:00 74 25 114/52 (72) 100 Ventilator 11/20/20 08:00 93.5 93.5 I & 0 Intake and Output 11/20/20 06:59 Intake Total 1887.1 ml Output Total 81 ml Balance 1806.1 ml IV Total 1887.1 ml Output Urine Total 81 ml PHYSICAL EXAM Physical Exam General: Intubated, sedated HEENT: OG, EG + Neck supple Lungs: diminished bases Heart: S1S2 Abdomen: Soft, Extremities: Trace Bilat LE edema + Neuro: sedated, intubated Sky + Skin No rash DIAGNOSIS/ASSESSMENT Assessment & Plan KENNETH - Oligoanuric now , ATN , UOP may be better CRRT started on 11/18, tolerating well, discussed treatment plan with nursing CT scan- at presentation unremarkable Kidneys and bladder , No Micr hematuria, Overt Proteinuria +, No hx of NSAID's use per patient , No Hx of CKD (KENNETH last hosp - resolved ) Supportive care, Strict I/O, monitor , replace E-Lytes as indicated .May switch to HD tomorrow indicated and stable off pressors HyperKalemia- was on PO KCL , resolved Abdominal pain POA - no surgery planned per Sepsis- elevated Lactic acid Metabolic acidosis POA- 2/2 Lactic acidosis, Bicarb Normal on CRRT Elevated LFT's Acute respiratory failure - Moderate right and small left pleural effusion with hazy adjacent airspace disease may relate to pulmonary edema. Acute on chronic CHF exacerbation last echo in July 2020 showed EF of 60-65% and severely dilated right ventricle Valvular insufficiency: notable for moderate MR and mod to severe TR Hx of of open ASD closure: 2014. Stable per recent SAMMY Severe symptomatic hypoglycemia POA History of atrial fibrillation/atrial flutter Secondary cor pulmonale due to pulmonary hypertension Anemia of chronic disease- Fe def , Tsat 4, Defer to primary COMMENT/RELEVANT DATA Meds Current Medications Medications (Trade) Dose Ordered Sig/Kailey Start Time Stop Time Status Last Admin Dose Admin Acetaminophen (Tylenol) 650 mg PRN Q4HRS PRN 11/15/20 16:15 Albumin Human 500 ml @ 125 mls/hr 1X ONCE 11/17/20 15:15 11/17/20 19:14 DC 11/17/20 15:44 125 MLS/HR Albuterol/ Ipratropium (Duoneb) 3 ml RTQID 11/17/20 09:00 11/20/20 08:00 3 ML Amiodarone HCl (Cordarone) 200 mg DAILY 11/16/20 09:00 11/15/20 16:38 DC Aspirin (Tatianna Aspirin) 325 mg DAILY 11/16/20 09:00 11/15/20 16:38 DC Budesonide (Pulmicort) 0.5 mg RTBID 11/17/20 09:00 11/20/20 08:00 0.5 MG Calcium Carbonate/ Glycine (Tums) 1,000 mg PRN Q4HRS PRN 11/16/20 21:30 11/16/20 21:37 1,000 MG Calcium Gluconate 1000 mg/Sodium Chloride 110 ml @ 220 mls/hr 1X ONCE 11/17/20 17:15 11/17/20 17:44 DC 11/17/20 17:36 220 MLS/HR Cefepime HCl (Maxipime) 2 gm Q24H 11/15/20 17:00 11/17/20 11:51 DC 11/16/20 16:30 2 GM Chlorhexidine Gluconate (Peridex) 15 ml BID 11/17/20 21:00 11/19/20 20:39 DC 11/19/20 09:00 15 ML Citalopram Hydrobromide (CeleXA) 40 mg DAILY 11/16/20 09:00 11/20/20 09:20 40 MG Daptomycin 390 mg/ Sodium Chloride 50 ml @ 100 mls/hr Q48H 11/20/20 13:00 11/18/20 16:23 DC Daptomycin 500 mg/ Sodium Chloride 50 ml @ 100 mls/hr Q48H 11/19/20 21:00 11/19/20 20:48 100 MLS/HR Dextrose (Dextrose 50%-Water Syringe) 12.5 gm PRN Q15MIN PRN 11/15/20 16:15 Dextrose/Sodium Chloride 1,000 ml @ 50 mls/hr Q20H 11/15/20 16:00 11/19/20 17:06 DC 11/17/20 09:28 50 MLS/HR Digoxin (Lanoxin) 500 mcg 1X ONCE 11/17/20 15:30 11/17/20 15:31 DC 11/17/20 15:43 500 MCG Docusate Sodium (Colace) 100 mg PRN DAILY PRN 11/15/20 16:15 Epinephrine HCl 10 mg/Sodium Chloride 250 ml @ 11.85 mls/ hr CONT PRN 11/17/20 17:30 11/17/20 22:09 47.4 MLS/HR Epinephrine HCl 5 mg/Sodium Chloride 255 ml @ 24.266 mls/ hr CONT PRN 11/17/20 14:45 11/17/20 20:00 DC 11/17/20 19:44 121.328 MLS/HR Etomidate (Amidate) 12 mg 1X ONCE 11/17/20 14:15 11/17/20 14:16 DC 11/17/20 14:15 12 MG Fentanyl Citrate 55 ml @ 0 mls/hr CONT PRN PRN 11/19/20 21:00 11/19/20 22:23 2 MLS/HR Fentanyl Citrate (Fentanyl 2ml Vial) 50 mcg PRN Q1HR PRN 11/17/20 14:00 Fluticasone Propionate (Flonase) 2 spray DAILY 11/16/20 09:00 11/17/20 08:37 2 SPRAY Furosemide (Lasix) 40 mg 1X ONCE 11/16/20 14:00 11/16/20 14:01 DC 11/16/20 14:08 40 MG Gabapentin (Neurontin) 600 mg BID 11/15/20 21:00 11/20/20 09:20 600 MG Heparin Sodium (Porcine) (Heparin Sodium) 5,000 unit Q12HR 11/15/20 21:00 11/15/20 16:17 DC Hydrocortisone Sodium Succinate (Solu-CORTEF) 100 mg Q8HRS 11/17/20 22:00 11/20/20 05:34 100 MG Lidocaine HCl (Buffered Lidocaine 1%) 6 ml 1X ONCE 11/18/20 09:45 11/18/20 09:46 DC 11/18/20 09:53 5 ML Lidocaine HCl (Xylocaine 2% Topical 5gm Tube) 5 makenna STK-MED ONCE 11/16/20 12:00 11/17/20 15:35 DC Lidocaine HCl (Xylocaine-Mpf 1% 2ml Vial) 2 ml 1X ONCE 11/17/20 12:00 11/17/20 12:07 DC Linezolid/Dextrose 300 ml @ 300 mls/hr Q12HR 11/17/20 18:00 11/20/20 09:21 300 MLS/HR Meropenem 1 gm/ Sodium Chloride 100 ml @ 200 mls/hr Q12HR 11/18/20 21:00 11/20/20 09:21 200 MLS/HR Meropenem 500 mg/ Sodium Chloride 50 ml @ 100 mls/hr DAILY 11/19/20 09:00 11/18/20 16:16 DC Metoprolol Tartrate (Lopressor) 50 mg BID 11/16/20 09:15 11/17/20 12:56 DC 11/17/20 09:24 50 MG Metronidazole 100 ml @ 100 mls/hr Q12HR 11/15/20 21:00 11/17/20 11:51 DC 11/17/20 08:41 100 MLS/HR Micafungin Sodium 100 mg/Dextrose 100 ml @ 100 mls/hr Q24H 11/17/20 12:30 11/19/20 11:57 100 MLS/HR Midazolam HCl 100 ml @ 0 mls/hr CONT PRN 11/17/20 14:00 11/19/20 22:24 5 MLS/HR Morphine Sulfate (Morphine Sulfate) 4 mg PRN Q1HR PRN 11/17/20 14:00 Norepinephrine Bitartrate 32 mg/ Dextrose 250 ml @ 3.703 mls/ hr CONT PRN 11/17/20 13:30 11/18/20 03:50 14.813 MLS/HR Norepinephrine Bitartrate 8 mg/ Dextrose 258 ml @ 15.344 mls/ hr CONT PRN 11/17/20 11:15 11/17/20 14:30 DC 11/17/20 11:32 14.8 MLS/HR Ondansetron HCl (Zofran) 4 mg PRN Q6HRS PRN 11/15/20 16:15 Pantoprazole Sodium (PROTONIX VIAL for IV PUSH) 40 mg DAILYAC 11/18/20 07:30 11/20/20 09:20 40 MG Pantoprazole Sodium (Protonix) 40 mg DAILYAC 11/16/20 07:30 11/17/20 14:53 DC 11/17/20 08:36 40 MG Phenylephrine HCl 50 mg/Sodium Chloride 255 ml @ 12.133 mls/ hr CONT PRN 11/17/20 13:30 Piperacillin Sod/ Tazobactam Sod 3.375 gm/Sodium Chloride 50 ml @ 100 mls/hr 1X ONCE 11/15/20 13:00 11/15/20 13:29 DC 11/15/20 13:05 100 MLS/HR Potassium Chloride 15 meq/ Bicarbonate Dialysis Soln w/ out KCl 5,007.5 ml @ 1,250 mls/ hr Q4H1M 11/18/20 11:00 11/20/20 10:29 1,250 MLS/HR Potassium Chloride (Klor-Con) 60 meq 1X ONCE 11/16/20 14:00 11/16/20 14:01 DC 11/16/20 14:06 60 MEQ Prothrombin Complex Concent (Human) 2000 unit/ Miscellaneous 80 ml @ 160 mls/hr 1X ONCE 11/18/20 14:30 11/18/20 14:59 DC 11/18/20 14:48 160 MLS/HR Ringer's Solution 1,000 ml @ 1,000 mls/hr Q1H ONCE 11/17/20 14:00 11/17/20 14:59 DC 11/17/20 15:45 1,000 MLS/HR Sennosides (Senna) 17.2 mg PRN BID PRN 11/15/20 16:15 Sodium Bicarbonate 150 meq/Dextrose 1,150 ml @ 125 mls/hr Q9H12M ONCE 11/17/20 11:30 11/17/20 20:41 DC 11/17/20 11:26 125 MLS/HR Sodium Bicarbonate (Sodium Bicarb Adult 8.4% Syr) 100 meq 1X ONCE 11/17/20 14:15 11/17/20 14:16 DC 11/17/20 14:15 100 MEQ Sodium Chloride 1,000 ml @ 0 mls/hr Q0M 11/19/20 15:30 Sodium Phosphate 20 mmol/Sodium Chloride 256.6667 ml @ 64.167 m... 1X ONCE 11/19/20 12:30 11/19/20 16:29 DC 11/19/20 13:54 64.167 MLS/HR Succinylcholine Chloride (Anectine) 100 mg 1X ONCE 11/17/20 14:15 11/17/20 14:16 DC 11/17/20 14:15 100 MG Thiamine Mononitrate (Vitamin B-1) 300 mg TID 11/17/20 14:00 11/20/20 09:21 300 MG Thiamine HCl 300 mg/Dextrose 53 ml @ 102 mls/hr Q8HRS 11/15/20 22:00 11/17/20 09:46 DC 11/17/20 06:17 102 MLS/HR Tranexamic Acid 50 ml @ 50 mls/hr Q12HR 11/18/20 13:00 11/20/20 09:22 50 MLS/HR Vancomycin HCl (Vanco Per Pharmacy) 1 each PRN DAILY PRN 11/15/20 16:15 11/16/20 11:05 DC Vancomycin HCl 2 gm/Sodium Chloride 500 ml @ 250 mls/hr 1X ONCE 11/15/20 13:00 11/15/20 14:59 DC 11/15/20 13:37 250 MLS/HR Vasopressin 20 unit/Dextrose 101 ml @ 12 mls/hr CONT PRN 11/17/20 13:30 UNV Vecuronium Gilmore (Norcuron Bolus) 6 mg PRN Q2HR PRN 11/17/20 20:00 11/17/20 22:11 6 MG Lab Laboratory Tests Test 11/19/20 11:49 11/19/20 17:15 11/20/20 00:09 11/20/20 06:00 Prothrombin Time 27.6 SEC (11.7-14.0) 24.4 SEC (11.7-14.0) 20.6 SEC (11.7-14.0) Prothromb Time International Ratio 2.6 (0.8-1.1) 2.2 (0.8-1.1) 1.8 (0.8-1.1) Sodium Level 133 mmol/L (136-145) 134 mmol/L (136-145) 136 mmol/L (136-145) 135 mmol/L (136-145) Potassium Level 3.5 mmol/L (3.5-5.1) 3.4 mmol/L (3.5-5.1) 3.3 mmol/L (3.5-5.1) 3.4 mmol/L (3.5-5.1) Chloride Level 99 mmol/L (98-107) 100 mmol/L (98-107) 101 mmol/L (98-107) 100 mmol/L (98-107) Carbon Dioxide Level 26 mmol/L (21-32) 27 mmol/L (21-32) 25 mmol/L (21-32) 25 mmol/L (21-32) Anion Gap 8 (6-14) 7 (6-14) 10 (6-14) 10 (6-14) Blood Urea Nitrogen 22 mg/dL (7-20) 19 mg/dL (7-20) 16 mg/dL (7-20) 14 mg/dL (7-20) Creatinine 1.3 mg/dL (0.6-1.0) 1.1 mg/dL (0.6-1.0) 1.1 mg/dL (0.6-1.0) 0.9 mg/dL (0.6-1.0) Estimated GFR (Cockcroft-Gault) 55.2 66.9 66.9 84.3 BUN/Creatinine Ratio 17 (6-20) 17 (6-20) 15 (6-20) 16 (6-20) Glucose Level 141 mg/dL (70-99) 101 mg/dL (70-99) 123 mg/dL (70-99) 112 mg/dL (70-99) Lactic Acid Level 1.9 mmol/L (0.4-2.0) Calcium Level 7.9 mg/dL (8.5-10.1) 7.9 mg/dL (8.5-10.1) 8.0 mg/dL (8.5-10.1) 8.4 mg/dL (8.5-10.1) Phosphorus Level 1.9 mg/dL (2.6-4.7) 2.8 mg/dL (2.6-4.7) 2.0 mg/dL (2.6-4.7) 2.1 mg/dL (2.6-4.7) Magnesium Level 2.3 mg/dL (1.8-2.4) 2.4 mg/dL (1.8-2.4) 2.4 mg/dL (1.8-2.4) 2.6 mg/dL (1.8-2.4) Total Bilirubin 5.3 mg/dL (0.2-1.0) 5.6 mg/dL (0.2-1.0) 5.4 mg/dL (0.2-1.0) 5.7 mg/dL (0.2-1.0) Aspartate Amino Transf (AST/SGOT) 249 U/L (15-37) 244 U/L (15-37) 216 U/L (15-37) 221 U/L (15-37) Alanine Aminotransferase (ALT/SGPT) 112 U/L (14-59) 112 U/L (14-59) 108 U/L (14-59) 116 U/L (14-59) Alkaline Phosphatase 117 U/L (46-116) 117 U/L (46-116) 120 U/L (46-116) 134 U/L (46-116) Total Protein 5.5 g/dL (6.4-8.2) 5.6 g/dL (6.4-8.2) 5.8 g/dL (6.4-8.2) 6.4 g/dL (6.4-8.2) Albumin 2.3 g/dL (3.4-5.0) 2.5 g/dL (3.4-5.0) 2.4 g/dL (3.4-5.0) 2.6 g/dL (3.4-5.0) Albumin/Globulin Ratio 0.7 (1.0-1.7) 0.8 (1.0-1.7) 0.7 (1.0-1.7) 0.7 (1.0- 1.7) White Blood Count 18.1 x10^3/uL (4.0-11.0) Red Blood Count 4.19 x10^6/uL (3.50-5.40) Hemoglobin 8.1 g/dL (12.0-15.5) Hematocrit 26.9 % (36.0-47.0) Mean Corpuscular Volume 64 fL (79-100) Mean Corpuscular Hemoglobin 19 pg (25-35) Mean Corpuscular Hemoglobin Concent 30 g/dL (31-37) Red Cell Distribution Width 25.6 % (11.5-14.5) Platelet Count 133 x10^3/uL (140-400) Fibrinogen 277 mg/dL (200-440) Test 11/20/20 07:45 O2 Saturation 99 % (92-99) Arterial Blood pH 7.42 (7.35-7.45) Arterial Blood pCO2 at Patient Temp 37 mmHg (35-46) Arterial Blood pO2 at Patient Temp 193 mmHg (75-108) Arterial Blood HCO3 23 mmol/L (21-28) Arterial Blood Base Excess -1 mmol/L (-3-3) FiO2 40%+6 Results All relevant outside records, renal labs, imaging studies, telemetry/EKG's were reviewed. Justicifation of Admission Dx: Justifications for Admission: Justification of Admission Dx: Yes CHF: Cardiac Arrhythmias FRANCO SETHI MD Nov 20, 2020 10:56
[2020-11-20] MEDS ORDERED: SODIUM PHOSPHATE 20 MMOL in IV NORMAL SALINE 250ML 250 ML IV ONE (11:15)
[2020-11-20] MEDS ORDERED: POTASSIUM CHLORIDE 20MEQ 100 ML IV ONE (12:00)
[2020-11-20 12:33] LABS: ALBUMIN 2.4 g/dL (3.4-5.0); ALBUMIN/GLOBULIN RATIO 0.7 (1.0-1.7); CALCIUM 8.1 mg/dL (8.5-10.1); CREATININE 0.9 mg/dL (0.6-1.0); GFR 84.3; MAGNESIUM 2.5 mg/dL (1.8-2.4); PHOSPHORUS 1.5 mg/dL (2.6-4.7); TOTAL BILIRUBIN 5.3 mg/dL (0.2-1.0); TOTAL PROTEIN 5.7 g/dL (6.4-8.2)
[2020-11-20] MEDS ORDERED: DAPTOmycin (GENERIC) IVPB 390 MG in IV NORMAL SALINE 50ML 50 ML IV SCH (13:00)
[2020-11-20] MEDS: MICAFUNGIN 100 MG in IV DEXTROSE 5% 100ML 100 ML IV SCH (13:29)
--- NOTE | 2020-11-20 13:48 | PDOC ---
[employer] PROGRESS NOTE Date of Service DOS: DATE: 11/20/20 TIME: 13:45 Chief Complaint Chief Complaint Multifactorial respiratory failure with severe heart failure (15% ejection fraction but was 60% just a few months ago) Status post intubation yesterday Sepsis Colitis Severe lactic acidosis Pneumonia Lactic acidosis Severe symptomatic hypoglycemia KENNETH due to vasomotor nephropathy Acute volume overload Coagulopathy History of atrial fibrillation/atrial flutter Secondary cor pulmonale due to pulmonary hypertension Anemia of chronic disease History of Present Illness History of Present Illness 11/20/2020 Patient seen and examined in the ICU She is still on the vent Assist-control/16/400/40 percent with 6 of PEEP She is off the pressors today She is oxygenating a little bit better Discussed with risk lead considering right heart cath tomorrow On Tranexamic acid qtt per oncologist 11/19/2020 Patient seen and examined in the ICU She remains intubated Assist-control/16/400/40 percent with 6 of PEEP Is currently in A. fib Also on CRRT Chart reviewed Discussed with RN She remains extremely critically ill 11/18/2020 Patient seen and examined in the ICU She is now intubated Ejection fraction noted to be 15% She is extremely critically ill volume overloaded desatting to 78% despite being on 80% FiO2 on the vent Her mom is present I spent quite a bit of time discussing the case with her and escorted her to the [facility] where she wants to pray Discussed with RN Discussed with case management Chart reviewed Patient is on assist-control/26/400/80 percent FiO2 with 8 of PEEP We are considering starting CRRT this afternoon She is sedated with Versed fentanyl and Also has Levophed and vasopressin running On IV Zyvox Extremely critically ill 11/16/2020 Patient seen and examined in the ICU CT abdomen reviewed looks like she has some possible colitis Lactic acid has decreased from 22 down to 8 Discussed with RN Discussed with case management Chart reviewed Vitals/I&O Vitals/I&O: Vital Signs Date Time Temp Pulse Resp B/P (MAP) Pulse Ox O2 Delivery O2 Flow Rate FiO2 11/20/20 13:00 75 25 113/57 (75) 100 Ventilator 11/20/20 12:00 94.5 94.5 I & O 11/19/20 11/19/20 11/20/20 15:00 23:00 07:00 Intake Total 550 ml 1135.6 ml 201.5 ml Output Total 22 ml 22 ml 37 ml Balance 528 ml 1113.6 ml 164.5 ml Physical Exam Physical Exam: GENERAL: Intubated/sedated HEENT ETT/OGT tube present Neck Right IJ, left HDC, clean LUNGS: Bibasilar Rales HEART: Irregular. ABDOMEN: Mildly distended hypoactive bowel sounds EXTREMITIES: edema bilaterally. NEUROLOGIC: Intubated right femoral arterial line present DERM mottled skin General: Other (Sedated and intubated) Heart: Other (Irregular rhythm) Lungs: Clear Abdomen: Normal bowel sounds, Soft, Other (Minimal OG output) Extremities: No cyanosis Skin: No rashes, No breakdown Labs Labs: Laboratory Tests Test 11/19/20 17:15 11/20/20 00:09 11/20/20 06:00 11/20/20 07:45 Prothrombin Time 24.4 SEC (11.7-14.0) 20.6 SEC (11.7-14.0) Prothromb Time International Ratio 2.2 (0.8-1.1) 1.8 (0.8-1.1) Sodium Level 134 mmol/L (136-145) 136 mmol/L (136-145) 135 mmol/L (136-145) Potassium Level 3.4 mmol/L (3.5-5.1) 3.3 mmol/L (3.5-5.1) 3.4 mmol/L (3.5-5.1) Chloride Level 100 mmol/L (98-107) 101 mmol/L (98-107) 100 mmol/L (98-107) Carbon Dioxide Level 27 mmol/L (21-32) 25 mmol/L (21-32) 25 mmol/L (21-32) Anion Gap 7 (6-14) 10 (6-14) 10 (6-14) Blood Urea Nitrogen 19 mg/dL (7-20) 16 mg/dL (7-20) 14 mg/dL (7-20) Creatinine 1.1 mg/dL (0.6-1.0) 1.1 mg/dL (0.6-1.0) 0.9 mg/dL (0.6-1.0) Estimated GFR (Cockcroft-Gault) 66.9 66.9 84.3 BUN/Creatinine Ratio 17 (6-20) 15 (6-20) 16 (6-20) Glucose Level 101 mg/dL (70-99) 123 mg/dL (70-99) 112 mg/dL (70-99) Calcium Level 7.9 mg/dL (8.5-10.1) 8.0 mg/dL (8.5-10.1) 8.4 mg/dL (8.5-10.1) Phosphorus Level 2.8 mg/dL (2.6-4.7) 2.0 mg/dL (2.6-4.7) 2.1 mg/dL (2.6-4.7) Magnesium Level 2.4 mg/dL (1.8-2.4) 2.4 mg/dL (1.8-2.4) 2.6 mg/dL (1.8-2.4) Total Bilirubin 5.6 mg/dL (0.2-1.0) 5.4 mg/dL (0.2-1.0) 5.7 mg/dL (0.2-1.0) Aspartate Amino Transf (AST/SGOT) 244 U/L (15-37) 216 U/L (15-37) 221 U/L (15-37) Alanine Aminotransferase (ALT/SGPT) 112 U/L (14-59) 108 U/L (14-59) 116 U/L (14-59) Alkaline Phosphatase 117 U/L (46-116) 120 U/L (46-116) 134 U/L (46-116) Total Protein 5.6 g/dL (6.4-8.2) 5.8 g/dL (6.4-8.2) 6.4 g/dL (6.4-8.2) Albumin 2.5 g/dL (3.4-5.0) 2.4 g/dL (3.4-5.0) 2.6 g/dL (3.4-5.0) Albumin/Globulin Ratio 0.8 (1.0-1.7) 0.7 (1.0-1.7) 0.7 (1.0-1.7) White Blood Count 18.1 x10^3/uL (4.0-11.0) Red Blood Count 4.19 x10^6/uL (3.50-5.40) Hemoglobin 8.1 g/dL (12.0-15.5) Hematocrit 26.9 % (36.0-47.0) Mean Corpuscular Volume 64 fL (79-100) Mean Corpuscular Hemoglobin 19 pg (25-35) Mean Corpuscular Hemoglobin Concent 30 g/dL (31-37) Red Cell Distribution Width 25.6 % (11.5-14.5) Platelet Count 133 x10^3/uL (140-400) Fibrinogen 277 mg/dL (200-440) O2 Saturation 99 % (92-99) Arterial Blood pH 7.42 (7.35-7.45) Arterial Blood pCO2 at Patient Temp 37 mmHg (35-46) Arterial Blood pO2 at Patient Temp 193 mmHg (75-108) Arterial Blood HCO3 23 mmol/L (21-28) Arterial Blood Base Excess -1 mmol/L (-3-3) FiO2 40%+6 Test 11/20/20 11:54 Sodium Level 134 mmol/L (136-145) Potassium Level 3.0 mmol/L (3.5-5.1) Chloride Level 101 mmol/L (98-107) Carbon Dioxide Level 26 mmol/L (21-32) Anion Gap 7 (6-14) Blood Urea Nitrogen 13 mg/dL (7-20) Creatinine 0.9 mg/dL (0.6-1.0) Estimated GFR (Cockcroft-Gault) 84.3 BUN/Creatinine Ratio 14 (6-20) Glucose Level 134 mg/dL (70-99) Calcium Level 8.1 mg/dL (8.5-10.1) Phosphorus Level 1.5 mg/dL (2.6-4.7) Magnesium Level 2.5 mg/dL (1.8-2.4) Total Bilirubin 5.3 mg/dL (0.2-1.0) Aspartate Amino Transf (AST/SGOT) 176 U/L (15-37) Alanine Aminotransferase (ALT/SGPT) 101 U/L (14-59) Alkaline Phosphatase 124 U/L (46-116) Total Protein 5.7 g/dL (6.4-8.2) Albumin 2.4 g/dL (3.4-5.0) Albumin/Globulin Ratio 0.7 (1.0-1.7) Assessment and Plan Assessmemt and Plan Problems Medical Problems: (1) KENNETH (acute kidney injury) Status: Acute (2) Atrial fibrillation with RVR Status: Acute (3) CHF (congestive heart failure) Status: Acute (4) Hypoglycemia Status: Acute (5) Pneumonia Status: Acute Multifactorial respiratory failure with severe heart failure (15% ejection fraction but was 60% just a few months ago) Status post intubation yesterday Sepsis Colitis Severe lactic acidosis Pneumonia Lactic acidosis Severe symptomatic hypoglycemia KENNETH due to vasomotor nephropathy Acute volume overload Coagulopathy History of atrial fibrillation/atrial flutter Secondary cor pulmonale due to pulmonary hypertension Anemia of chronic disease Plan ICU monitoring Continue CRRT Tranexamic qtt per oncology Wound care Vent weaning IV antibiotics Trend labs 7 consults are on board appreciate their input Strict I's and O's Sky to bedside drainage Continue telemetry monitoring for atrial fibrillation Continue amiodarone Heparin for DVT prophylaxis Protonix for GI prophylaxis Full code Discussed with health care / medical job titles time 35 minutes Comment Review of Relevant I have reviewed the following items josé (where applicable) has been applied. Medications: Current Medications Medications (Trade) Dose Ordered Sig/Kailey Route PRN Reason Start Time Stop Time Status Last Admin Dose Admin Daptomycin 500 mg/ Sodium Chloride 50 ml @ 100 mls/hr Q48H IV 11/19/20 21:00 11/19/20 20:48 Fentanyl Citrate 55 ml @ 0 mls/hr CONT PRN PRN IV SEDATION/PAIN CONTROL 11/19/20 21:00 11/19/20 22:23 Potassium Chloride/Water 100 ml @ 100 mls/hr 1X ONCE IV 11/20/20 12:00 11/20/20 12:59 DC 11/20/20 11:38 Sodium Phosphate 20 mmol/Sodium Chloride 256.6667 ml @ 64.167 m... 1X ONCE IV 11/20/20 11:15 11/20/20 15:14 11/20/20 11:46 Justifications for Admission Other Justification chf exacerbation GARETH SOLITARIO III DO Nov 20, 2020 13:48
--- NOTE | 2020-11-20 13:58 | PDOC ---
PULMONARY PROGRESS NOTES DATE: 11/20/20 TIME: 13:53 Subjective Patient intubated 11/17 remains on vent support 40%/PEEP of 6 on CRRT off pressors No other concerns overnight Vitals Vital Signs Date Time Temp Pulse Resp B/P (MAP) Pulse Ox O2 Delivery O2 Flow Rate FiO2 11/20/20 13:00 75 25 113/57 (75) 100 Ventilator 11/20/20 12:00 94.5 94.5 Comments Intubated Lungs: Clear Cardiovascular: S1, S2 Abdomen: Soft Neuro Exam: Alert Extremities: No Edema Skin: Warm, Dry Labs Laboratory Tests Test 11/18/20 15:20 11/18/20 18:30 11/19/20 01:20 11/19/20 06:20 O2 Saturation 99 % (92-99) Arterial Blood pH 7.39 (7.35-7.45) Arterial Blood pCO2 at Patient Temp 30 mmHg (35-46) Arterial Blood pO2 at Patient Temp 216 mmHg (75-108) Arterial Blood HCO3 18 mmol/L (21-28) Arterial Blood Base Excess -6 mmol/L (-3-3) FiO2 70 White Blood Count 26.5 x10^3/uL (4.0-11.0) 18.4 x10^3/uL (4.0-11.0) 16.6 x10^3/uL (4.0-11.0) Red Blood Count 4.15 x10^6/uL (3.50-5.40) 3.86 x10^6/uL (3.50-5.40) 3.71 x10^6/uL (3.50-5.40) Hemoglobin 8.2 g/dL (12.0-15.5) 7.5 g/dL (12.0-15.5) 7.2 g/dL (12.0-15.5) Hematocrit 27.1 % (36.0-47.0) 25.3 % (36.0-47.0) 23.9 % (36.0-47.0) Mean Corpuscular Volume 65 fL (79-100) 66 fL (79-100) 64 fL (79-100) Mean Corpuscular Hemoglobin 20 pg (25-35) 19 pg (25-35) 19 pg (25-35) Mean Corpuscular Hemoglobin Concent 30 g/dL (31-37) 30 g/dL (31-37) 30 g/dL (31-37) Red Cell Distribution Width 25.2 % (11.5-14.5) 25.6 % (11.5-14.5) 25.1 % (11.5-14.5) Platelet Count 192 x10^3/uL (140-400) 163 x10^3/uL (140-400) 148 x10^3/uL (140-400) Neutrophils (%) (Auto) 88 % (31-73) 91 % (31-73) 90 % (31-73) Lymphocytes (%) (Auto) 6 % (24-48) 4 % (24-48) 4 % (24-48) Monocytes (%) (Auto) 5 % (0-9) 6 % (0-9) 6 % (0-9) Eosinophils (%) (Auto) 0 % (0-3) 0 % (0-3) 0 % (0-3) Basophils (%) (Auto) 1 % (0-3) 0 % (0-3) 0 % (0-3) Neutrophils # (Auto) 23.3 x10^3/uL (1.8-7.7) 16.7 x10^3/uL (1.8-7.7) 14.9 x10^3/uL (1.8-7.7) Lymphocytes # (Auto) 1.7 x10^3/uL (1.0-4.8) 0.6 x10^3/uL (1.0-4.8) 0.6 x10^3/uL (1.0-4.8) Monocytes # (Auto) 1.2 x10^3/uL (0.0-1.1) 1.0 x10^3/uL (0.0-1.1) 1.0 x10^3/uL (0.0-1.1) Eosinophils # (Auto) 0.0 x10^3/uL (0.0-0.7) 0.0 x10^3/uL (0.0-0.7) 0.0 x10^3/uL (0.0-0.7) Basophils # (Auto) 0.2 x10^3/uL (0.0-0.2) 0.0 x10^3/uL (0.0-0.2) 0.0 x10^3/uL (0.0-0.2) Sodium Level 130 mmol/L (136-145) 132 mmol/L (136-145) 134 mmol/L (136-145) Potassium Level 4.4 mmol/L (3.5-5.1) 4.4 mmol/L (3.5-5.1) 3.9 mmol/L (3.5-5.1) Chloride Level 96 mmol/L (98-107) 98 mmol/L (98-107) 100 mmol/L (98-107) Carbon Dioxide Level 23 mmol/L (21-32) 23 mmol/L (21-32) 24 mmol/L (21-32) Anion Gap 11 (6-14) 11 (6-14) 10 (6-14) Blood Urea Nitrogen 40 mg/dL (7-20) 32 mg/dL (7-20) 26 mg/dL (7-20) Creatinine 2.1 mg/dL (0.6-1.0) 1.7 mg/dL (0.6-1.0) 1.5 mg/dL (0.6-1.0) Estimated GFR (Cockcroft-Gault) 31.7 40.5 46.8 Glucose Level 115 mg/dL (70-99) 84 mg/dL (70-99) 97 mg/dL (70-99) Calcium Level 8.1 mg/dL (8.5-10.1) 8.0 mg/dL (8.5-10.1) 7.9 mg/dL (8.5-10.1) Phosphorus Level 3.9 mg/dL (2.6-4.7) 2.9 mg/dL (2.6-4.7) 2.4 mg/dL (2.6-4.7) Magnesium Level 2.2 mg/dL (1.8-2.4) 2.3 mg/dL (1.8-2.4) 2.3 mg/dL (1.8-2.4) Creatine Kinase 357 U/L (26-192) BUN/Creatinine Ratio 17 (6-20) Total Bilirubin 5.2 mg/dL (0.2-1.0) Aspartate Amino Transf (AST/SGOT) 242 U/L (15-37) Alanine Aminotransferase (ALT/SGPT) 98 U/L (14-59) Alkaline Phosphatase 107 U/L (46-116) Total Protein 5.4 g/dL (6.4-8.2) Albumin 2.3 g/dL (3.4-5.0) Albumin/Globulin Ratio 0.7 (1.0-1.7) Hepatitis B Surface Antigen Nonreactive (Nonreactive) Hepatitis B Surface Antibody, Quant <3.1 mIU/mL (Immunity>9.9) Test 11/19/20 08:05 11/19/20 11:49 11/19/20 17:15 11/20/20 00:09 O2 Saturation 99 % (92-99) Arterial Blood pH 7.53 (7.35-7.45) Arterial Blood pCO2 at Patient Temp 29 mmHg (35-46) Arterial Blood pO2 at Patient Temp 179 mmHg (75-108) Arterial Blood HCO3 24 mmol/L (21-28) Arterial Blood Base Excess 1 mmol/L (-3-3) FiO2 50 Prothrombin Time 27.6 SEC (11.7-14.0) 24.4 SEC (11.7-14.0) Prothromb Time International Ratio 2.6 (0.8-1.1) 2.2 (0.8-1.1) Sodium Level 133 mmol/L (136-145) 134 mmol/L (136-145) 136 mmol/L (136-145) Potassium Level 3.5 mmol/L (3.5-5.1) 3.4 mmol/L (3.5-5.1) 3.3 mmol/L (3.5-5.1) Chloride Level 99 mmol/L (98-107) 100 mmol/L (98-107) 101 mmol/L (98-107) Carbon Dioxide Level 26 mmol/L (21-32) 27 mmol/L (21-32) 25 mmol/L (21-32) Anion Gap 8 (6-14) 7 (6-14) 10 (6-14) Blood Urea Nitrogen 22 mg/dL (7-20) 19 mg/dL (7-20) 16 mg/dL (7-20) Creatinine 1.3 mg/dL (0.6-1.0) 1.1 mg/dL (0.6-1.0) 1.1 mg/dL (0.6-1.0) Estimated GFR (Cockcroft-Gault) 55.2 66.9 66.9 BUN/Creatinine Ratio 17 (6-20) 17 (6-20) 15 (6-20) Glucose Level 141 mg/dL (70-99) 101 mg/dL (70-99) 123 mg/dL (70-99) Lactic Acid Level 1.9 mmol/L (0.4-2.0) Calcium Level 7.9 mg/dL (8.5-10.1) 7.9 mg/dL (8.5-10.1) 8.0 mg/dL (8.5-10.1) Phosphorus Level 1.9 mg/dL (2.6-4.7) 2.8 mg/dL (2.6-4.7) 2.0 mg/dL (2.6-4.7) Magnesium Level 2.3 mg/dL (1.8-2.4) 2.4 mg/dL (1.8-2.4) 2.4 mg/dL (1.8-2.4) Total Bilirubin 5.3 mg/dL (0.2-1.0) 5.6 mg/dL (0.2-1.0) 5.4 mg/dL (0.2-1.0) Aspartate Amino Transf (AST/SGOT) 249 U/L (15-37) 244 U/L (15-37) 216 U/L (15-37) Alanine Aminotransferase (ALT/SGPT) 112 U/L (14-59) 112 U/L (14-59) 108 U/L (14-59) Alkaline Phosphatase 117 U/L (46-116) 117 U/L (46-116) 120 U/L (46-116) Total Protein 5.5 g/dL (6.4-8.2) 5.6 g/dL (6.4-8.2) 5.8 g/dL (6.4-8.2) Albumin 2.3 g/dL (3.4-5.0) 2.5 g/dL (3.4-5.0) 2.4 g/dL (3.4-5.0) Albumin/Globulin Ratio 0.7 (1.0-1.7) 0.8 (1.0-1.7) 0.7 (1.0-1.7) Test 11/20/20 06:00 11/20/20 07:45 11/20/20 11:54 White Blood Count 18.1 x10^3/uL (4.0-11.0) Red Blood Count 4.19 x10^6/uL (3.50-5.40) Hemoglobin 8.1 g/dL (12.0-15.5) Hematocrit 26.9 % (36.0-47.0) Mean Corpuscular Volume 64 fL (79-100) Mean Corpuscular Hemoglobin 19 pg (25-35) Mean Corpuscular Hemoglobin Concent 30 g/dL (31-37) Red Cell Distribution Width 25.6 % (11.5-14.5) Platelet Count 133 x10^3/uL (140-400) Prothrombin Time 20.6 SEC (11.7-14.0) Prothromb Time International Ratio 1.8 (0.8-1.1) Fibrinogen 277 mg/dL (200-440) Sodium Level 135 mmol/L (136-145) 134 mmol/L (136-145) Potassium Level 3.4 mmol/L (3.5-5.1) 3.0 mmol/L (3.5-5.1) Chloride Level 100 mmol/L (98-107) 101 mmol/L (98-107) Carbon Dioxide Level 25 mmol/L (21-32) 26 mmol/L (21-32) Anion Gap 10 (6-14) 7 (6-14) Blood Urea Nitrogen 14 mg/dL (7-20) 13 mg/dL (7-20) Creatinine 0.9 mg/dL (0.6-1.0) 0.9 mg/dL (0.6-1.0) Estimated GFR (Cockcroft-Gault) 84.3 84.3 BUN/Creatinine Ratio 16 (6-20) 14 (6-20) Glucose Level 112 mg/dL (70-99) 134 mg/dL (70-99) Calcium Level 8.4 mg/dL (8.5-10.1) 8.1 mg/dL (8.5-10.1) Phosphorus Level 2.1 mg/dL (2.6-4.7) 1.5 mg/dL (2.6-4.7) Magnesium Level 2.6 mg/dL (1.8-2.4) 2.5 mg/dL (1.8-2.4) Total Bilirubin 5.7 mg/dL (0.2-1.0) 5.3 mg/dL (0.2-1.0) Aspartate Amino Transf (AST/SGOT) 221 U/L (15-37) 176 U/L (15-37) Alanine Aminotransferase (ALT/SGPT) 116 U/L (14-59) 101 U/L (14-59) Alkaline Phosphatase 134 U/L (46-116) 124 U/L (46-116) Total Protein 6.4 g/dL (6.4-8.2) 5.7 g/dL (6.4-8.2) Albumin 2.6 g/dL (3.4-5.0) 2.4 g/dL (3.4-5.0) Albumin/Globulin Ratio 0.7 (1.0-1.7) 0.7 (1.0-1.7) O2 Saturation 99 % (92-99) Arterial Blood pH 7.42 (7.35-7.45) Arterial Blood pCO2 at Patient Temp 37 mmHg (35-46) Arterial Blood pO2 at Patient Temp 193 mmHg (75-108) Arterial Blood HCO3 23 mmol/L (21-28) Arterial Blood Base Excess -1 mmol/L (-3-3) FiO2 40%+6 Laboratory Tests Test 11/19/20 17:15 11/20/20 00:09 11/20/20 06:00 11/20/20 07:45 Prothrombin Time 24.4 SEC (11.7-14.0) 20.6 SEC (11.7-14.0) Prothromb Time International Ratio 2.2 (0.8-1.1) 1.8 (0.8-1.1) Sodium Level 134 mmol/L (136-145) 136 mmol/L (136-145) 135 mmol/L (136-145) Potassium Level 3.4 mmol/L (3.5-5.1) 3.3 mmol/L (3.5-5.1) 3.4 mmol/L (3.5-5.1) Chloride Level 100 mmol/L (98-107) 101 mmol/L (98-107) 100 mmol/L (98-107) Carbon Dioxide Level 27 mmol/L (21-32) 25 mmol/L (21-32) 25 mmol/L (21-32) Anion Gap 7 (6-14) 10 (6-14) 10 (6-14) Blood Urea Nitrogen 19 mg/dL (7-20) 16 mg/dL (7-20) 14 mg/dL (7-20) Creatinine 1.1 mg/dL (0.6-1.0) 1.1 mg/dL (0.6-1.0) 0.9 mg/dL (0.6-1.0) Estimated GFR (Cockcroft-Gault) 66.9 66.9 84.3 BUN/Creatinine Ratio 17 (6-20) 15 (6-20) 16 (6-20) Glucose Level 101 mg/dL (70-99) 123 mg/dL (70-99) 112 mg/dL (70-99) Calcium Level 7.9 mg/dL (8.5-10.1) 8.0 mg/dL (8.5-10.1) 8.4 mg/dL (8.5-10.1) Phosphorus Level 2.8 mg/dL (2.6-4.7) 2.0 mg/dL (2.6-4.7) 2.1 mg/dL (2.6-4.7) Magnesium Level 2.4 mg/dL (1.8-2.4) 2.4 mg/dL (1.8-2.4) 2.6 mg/dL (1.8-2.4) Total Bilirubin 5.6 mg/dL (0.2-1.0) 5.4 mg/dL (0.2-1.0) 5.7 mg/dL (0.2-1.0) Aspartate Amino Transf (AST/SGOT) 244 U/L (15-37) 216 U/L (15-37) 221 U/L (15-37) Alanine Aminotransferase (ALT/SGPT) 112 U/L (14-59) 108 U/L (14-59) 116 U/L (14-59) Alkaline Phosphatase 117 U/L (46-116) 120 U/L (46-116) 134 U/L (46-116) Total Protein 5.6 g/dL (6.4-8.2) 5.8 g/dL (6.4-8.2) 6.4 g/dL (6.4-8.2) Albumin 2.5 g/dL (3.4-5.0) 2.4 g/dL (3.4-5.0) 2.6 g/dL (3.4-5.0) Albumin/Globulin Ratio 0.8 (1.0-1.7) 0.7 (1.0-1.7) 0.7 (1.0-1.7) White Blood Count 18.1 x10^3/uL (4.0-11.0) Red Blood Count 4.19 x10^6/uL (3.50-5.40) Hemoglobin 8.1 g/dL (12.0-15.5) Hematocrit 26.9 % (36.0-47.0) Mean Corpuscular Volume 64 fL (79-100) Mean Corpuscular Hemoglobin 19 pg (25-35) Mean Corpuscular Hemoglobin Concent 30 g/dL (31-37) Red Cell Distribution Width 25.6 % (11.5-14.5) Platelet Count 133 x10^3/uL (140-400) Fibrinogen 277 mg/dL (200-440) O2 Saturation 99 % (92-99) Arterial Blood pH 7.42 (7.35-7.45) Arterial Blood pCO2 at Patient Temp 37 mmHg (35-46) Arterial Blood pO2 at Patient Temp 193 mmHg (75-108) Arterial Blood HCO3 23 mmol/L (21-28) Arterial Blood Base Excess -1 mmol/L (-3-3) FiO2 40%+6 Test 11/20/20 11:54 Sodium Level 134 mmol/L (136-145) Potassium Level 3.0 mmol/L (3.5-5.1) Chloride Level 101 mmol/L (98-107) Carbon Dioxide Level 26 mmol/L (21-32) Anion Gap 7 (6-14) Blood Urea Nitrogen 13 mg/dL (7-20) Creatinine 0.9 mg/dL (0.6-1.0) Estimated GFR (Cockcroft-Gault) 84.3 BUN/Creatinine Ratio 14 (6-20) Glucose Level 134 mg/dL (70-99) Calcium Level 8.1 mg/dL (8.5-10.1) Phosphorus Level 1.5 mg/dL (2.6-4.7) Magnesium Level 2.5 mg/dL (1.8-2.4) Total Bilirubin 5.3 mg/dL (0.2-1.0) Aspartate Amino Transf (AST/SGOT) 176 U/L (15-37) Alanine Aminotransferase (ALT/SGPT) 101 U/L (14-59) Alkaline Phosphatase 124 U/L (46-116) Total Protein 5.7 g/dL (6.4-8.2) Albumin 2.4 g/dL (3.4-5.0) Albumin/Globulin Ratio 0.7 (1.0-1.7) Medications Active Scripts Medications Dose Route/Sig Max Daily Dose Days Date Category Amiodarone Hcl 200 Mg Tablet 200 Mg PO DAILY 30 09/29/20 Rx Eliquis (Apixaban) 5 Mg Tablet 5 Mg PO BID 30 09/29/20 Rx Doxycycline Hyclate 100 Mg Tablet 100 Mg PO BID 5 09/29/20 Rx Klor-Con M20 (Potassium Chloride) 20 Meq Tab.er.prt 20 Meq PO DAILYWBKFT 30 09/29/20 Rx Furosemide 40 Mg Tablet 40 Mg PO DAILY 30 09/29/20 Rx Omeprazole 20 Mg Capsule.dr 1 Cap PO DAILY 08/08/20 Reported Metoprolol Tartrate 25 Mg Tablet 1 Tab PO BID 12/20/14 Reported Feosol (Ferrous Sulfate) 325 Mg Tablet 325 Mg PO DAILY 12/20/14 Reported Aspirin 325 Mg Tablet 1 Tab PO DAILY 12/20/14 Reported Amitriptyline Hcl 50 Mg Tablet 1 Tab PO QHS 12/17/14 Reported Ultram (Tramadol Hcl) 50 Mg Tablet 1 Tab PO Q6HRS PRN 11/01/14 Reported Dulera 100 Mcg/5 Mcg Inhaler (Mometasone/Formoterol) 13 Gm Hfa.aer.ad 2 Puff IH BID 11/01/14 Reported Lidoderm (Lidocaine) 700 Mg Adh..patch 1 Patch TP DAILY PRN 11/01/14 Reported Neurontin (Gabapentin) 300 Mg Capsule 2 Cap PO BID 11/01/14 Reported Flonase (Fluticasone Propionate) 16 Gm Clayton.susp 2 Clayton NS DAILY 11/01/14 Reported Cyclobenzaprine Hcl 10 Mg Tablet 1 Tab PO TID PRN 11/01/14 Reported Celexa (Citalopram Hydrobromide) 40 Mg Tablet 1 Tab PO DAILY 11/01/14 Reported Cetirizine Hcl 10 Mg Tablet 1 Tab PO DAILY 11/01/14 Reported Proair Hfa Inhaler (Albuterol Sulfate) 8.5 Gm Hfa.aer.ad 2 Puff IH PRN Q4-6HRS 11/01/14 Reported Comments CXR IMPRESSION: 1. New left internal jugular temporary dialysis catheter in acceptable position. Otherwise stable support lines and tubes 2. Increasing pulmonary infiltrates and small right pleural effusion Impression . IMPRESSION: 1. Acute hypoxemic respiratory failure multifactorial 2. Septic shock etiology on clear 3. Possible pneumonia, gram-negative, gram-positive. Chest x-ray abnormal suspect combination of pulmonary edema and pneumonia 4. Acute kidney injury. 5. Colitis seen on CT abdomen and pelvis 6. Atrial fibrillation/atrial flutter. 7. Acute on chronic heart failure. 8. Bilateral pleural effusions. 9. History of ASD, status post closure. 10. Chronic obstructive pulmonary disease with exacerbation. 11. [id number] cor pulmonale. 12. Severe metabolic acidosis 13. coagulopathy 14. Acute kidney injury 15. Acute liver failure 16. Positive urine drug screen 17. Cardiomyopathy ejection fraction of 15% Plan . Continue current support with assist control ventilation Fi02 40%/ PEEP of 6 Follow CXR/ABG- [id number] to 35% and PEEP to 5 COVID-19 negative Follow hematology recs ----S/P tranexamic acid for eliquis reversal on 11/18 Follow nephrology recs -- continue CRRT, Antibiotics per infectious disease service-- Dapto, Merrem, micafungin and Zyvox Follow cardiology input patient echocardiogram revealed ejection fraction 15%, and Afib now off A/C Continue pressors for mean arterial pressure above 60-- currently off pressors Follow surgery recs- continue OG, CT ABD colitis/ illeus-- no surgical plans at this time Nutritional support TPN ? DVT/GI PPX : SCDS/protonix D/W RN and RT critically ill Total cumulative critical care time from 1130AM -1200PM DARIAN BASS MD Nov 20, 2020 13:58
[2020-11-20 18:05] LABS: PROTHROMBIN TIME PATIENT 19.4 SEC (11.7-14.0)
[2020-11-20 18:13] LABS: ALBUMIN 2.4 g/dL (3.4-5.0); ALBUMIN/GLOBULIN RATIO 0.7 (1.0-1.7); CREATININE 0.8 mg/dL (0.6-1.0); GFR 96.6; MAGNESIUM 2.5 mg/dL (1.8-2.4); PHOSPHORUS 2.2 mg/dL (2.6-4.7); POTASSIUM 3.3 mmol/L (3.5-5.1); TOTAL BILIRUBIN 5.4 mg/dL (0.2-1.0)
[2020-11-20] MEDS: POTASSIUM CHLORIDE 20MEQ 100 ML IV SCH ×2 (19:14→20:15)
[2020-11-20] MEDS: MIDAZOLAM 100mg/100ml NS BAG 100 ML IV PRN (19:28)
--- NOTE | 2020-11-20 20:00 | NUR ---
Patient has right Femoral Arterial line for BP monitoring and lab draw. Hourly BP's will be documented under Vital Sign intervention and Q4HRS with CVP under Arterial Line/Hemodynamics Intervention Q4HRS. Addendum: 11/20/20 at 2031 by CINDI HAWKINS RN Amended: Links added.
[2020-11-20] MEDS: fentaNYL HIGH DOSE PCA 55 ML IV PRN (22:52)
[2020-11-21] VITALS (25 sets, daily range): BP systolic 110–148; BP diastolic 58–88
[2020-11-21 00:27] LABS: ALBUMIN 2.5 g/dL (3.4-5.0); ALBUMIN/GLOBULIN RATIO 0.7 (1.0-1.7); CALCIUM 8.2 mg/dL (8.5-10.1); CREATININE 0.8 mg/dL (0.6-1.0); GFR 96.6; MAGNESIUM 2.6 mg/dL (1.8-2.4); PHOSPHORUS 1.8 mg/dL (2.6-4.7); POTASSIUM 3.6 mmol/L (3.5-5.1); TOTAL BILIRUBIN 5.5 mg/dL (0.2-1.0); TOTAL PROTEIN 6.2 g/dL (6.4-8.2)
[2020-11-21] MEDS ORDERED: SODIUM PHOSPHATE 20 MMOL in IV NORMAL SALINE 250ML 250 ML IV ONE (01:00)
[2020-11-21] MEDS: POTASSIUM CHLORIDE 15 MEQ in DIALYSIS SOLUTION BGK 0/2.5 5,000 ML IV SCH ×13 (02:54→23:09)
[2020-11-21] MEDS: HYDROCORTISONE SOD SUCC/PF 100 MG/2 ML VIAL. IVP SCH ×3 (05:56→20:45)
[2020-11-21 06:25] LABS: HEMATOCRIT 26.3 % (36.0-47.0); HEMOGLOBIN 7.9 g/dL (12.0-15.5); RED BLOOD COUNT 4.08 x10^6/uL (3.50-5.40); RED CELL DISTRIBUTION WIDTH 25.7 % (11.5-14.5); WHITE BLOOD COUNT 17.6 x10^3/uL (4.0-11.0)
[2020-11-21 06:45] LABS: ALBUMIN 2.6 g/dL (3.4-5.0); ALBUMIN/GLOBULIN RATIO 0.7 (1.0-1.7); CALCIUM 8.2 mg/dL (8.5-10.1); CREATININE 0.7 mg/dL (0.6-1.0); GFR 112.7; MAGNESIUM 2.5 mg/dL (1.8-2.4); PHOSPHORUS 3.1 mg/dL (2.6-4.7); POTASSIUM 3.5 mmol/L (3.5-5.1); TOTAL BILIRUBIN 5.5 mg/dL (0.2-1.0); TOTAL PROTEIN 6.5 g/dL (6.4-8.2)
[2020-11-21] MEDS: MIDAZOLAM 100mg/100ml NS BAG 100 ML IV PRN ×2 (06:47→22:24)
[2020-11-21 06:50] LABS: PROTHROMBIN TIME PATIENT 17.8 SEC (11.7-14.0)
[2020-11-21] MEDS: PANTOPRAZOLE IV PUSH 40 MG VIAL. IVP SCH (07:30)
[2020-11-21] MEDS: BUDESONIDE 0.5 MG/2 ML NEBU. NEB SCH ×2 (07:47→19:30)
[2020-11-21] MEDS: IPRATRPIUM/ALBUTEROL 0.5/2.5MG 3 ML NEBU. NEB SCH ×4 (07:47→19:30)
[2020-11-21 07:56] LABS: BASE EXCESS ABG 1 mmol/L (-3-3); HCO3 ABG 24 mmol/L (21-28); PCO2 ABG 30 mmHg (35-46); PO2 ABG 127 mmHg (75-108); SAT O2 ABG 99 % (92-99)
[2020-11-21 07:59] LABS: FIO2 ABG 35 VENT
[2020-11-21] MEDS: TRANEXAMIC ACID in NS IVPB 50 ML INJ SCH ×2 (09:00→21:31)
[2020-11-21] MEDS: FLUTICASONE 50MCG/NASAL SPRAY 16GM BOTTLE. NS SCH (09:00)
[2020-11-21] MEDS: THIAMINE 100 MG TABLET. PO SCH ×3 (10:58→20:45)
[2020-11-21] MEDS: CITALOPRAM 20 MG TABLET. PO SCH (10:59)
[2020-11-21] MEDS: GABAPENTIN 300 MG CAPSULE. PO SCH ×2 (10:59→20:45)
[2020-11-21] MEDS: MEROPENEM 1 GM in IV NORMAL SALINE 100ML 100 ML IV SCH ×2 (11:00→21:22)
--- NOTE | 2020-11-21 11:26 | PDOC ---
Infectious Disease Note Subjective: Subjective Patient intubated /sedated Remains on avril hugger Off pressure support Awaiting cardiac cath and SAMMY tomorrow Discussed with RN Vital Signs: Vital Signs Vital Signs Date Time Temp Pulse Resp B/P (MAP) Pulse Ox O2 Delivery O2 Flow Rate FiO2 11/21/20 11:00 117 22 110/65 (80) 100 Ventilator 11/21/20 08:00 96.7 96.7 Physical Exam: PHYSICAL EXAM GENERAL: Intubated/sedated HEENT ETT/OGT tube present Neck Right IJ, left HDC, clean LUNGS: Bibasilar Rales HEART: Irregular. ABDOMEN: Mildly distended hypoactive bowel sounds EXTREMITIES: edema bilaterally. NEUROLOGIC: Intubated right femoral arterial line present DERM mottled skin Medications: Inpatient Meds: Medications reviewed. Labs: Lab Laboratory Tests Test 11/20/20 11:54 11/20/20 17:45 11/21/20 00:03 11/21/20 06:04 Sodium Level 134 mmol/L (136-145) 135 mmol/L (136-145) 134 mmol/L (136-145) 136 mmol/L (136-145) Potassium Level 3.0 mmol/L (3.5-5.1) 3.3 mmol/L (3.5-5.1) 3.6 mmol/L (3.5-5.1) 3.5 mmol/L (3.5-5.1) Chloride Level 101 mmol/L (98-107) 101 mmol/L (98-107) 101 mmol/L (98-107) 103 mmol/L (98-107) Carbon Dioxide Level 26 mmol/L (21-32) 26 mmol/L (21-32) 25 mmol/L (21-32) 24 mmol/L (21-32) Anion Gap 7 (6-14) 8 (6-14) 8 (6-14) 9 (6-14) Blood Urea Nitrogen 13 mg/dL (7-20) 12 mg/dL (7-20) 11 mg/dL (7-20) 12 mg/dL (7-20) Creatinine 0.9 mg/dL (0.6-1.0) 0.8 mg/dL (0.6-1.0) 0.8 mg/dL (0.6-1.0) 0.7 mg/dL (0.6-1.0) Estimated GFR (Cockcroft-Gault) 84.3 96.6 96.6 112.7 BUN/Creatinine Ratio 14 (6-20) 15 (6-20) 14 (6-20) 17 (6-20) Glucose Level 134 mg/dL (70-99) 103 mg/dL (70-99) 118 mg/dL (70-99) 104 mg/dL (70-99) Calcium Level 8.1 mg/dL (8.5-10.1) 8.0 mg/dL (8.5-10.1) 8.2 mg/dL (8.5-10.1) 8.2 mg/dL (8.5-10.1) Phosphorus Level 1.5 mg/dL (2.6-4.7) 2.2 mg/dL (2.6-4.7) 1.8 mg/dL (2.6-4.7) 3.1 mg/dL (2.6-4.7) Magnesium Level 2.5 mg/dL (1.8-2.4) 2.5 mg/dL (1.8-2.4) 2.6 mg/dL (1.8-2.4) 2.5 mg/dL (1.8-2.4) Total Bilirubin 5.3 mg/dL (0.2-1.0) 5.4 mg/dL (0.2-1.0) 5.5 mg/dL (0.2-1.0) 5.5 mg/dL (0.2-1.0) Aspartate Amino Transf (AST/SGOT) 176 U/L (15-37) 164 U/L (15-37) 159 U/L (15-37) 149 U/L (15-37) Alanine Aminotransferase (ALT/SGPT) 101 U/L (14-59) 103 U/L (14-59) 105 U/L (14-59) 103 U/L (14-59) Alkaline Phosphatase 124 U/L (46-116) 166 U/L (46-116) 122 U/L (46-116) 127 U/L (46-116) Total Protein 5.7 g/dL (6.4-8.2) 6.0 g/dL (6.4-8.2) 6.2 g/dL (6.4-8.2) 6.5 g/dL (6.4-8.2) Albumin 2.4 g/dL (3.4-5.0) 2.4 g/dL (3.4-5.0) 2.5 g/dL (3.4-5.0) 2.6 g/dL (3.4-5.0) Albumin/Globulin Ratio 0.7 (1.0-1.7) 0.7 (1.0-1.7) 0.7 (1.0-1.7) 0.7 (1.0- 1.7) Prothrombin Time 19.4 SEC (11.7-14.0) 17.8 SEC (11.7-14.0) Prothromb Time International Ratio 1.7 (0.8-1.1) 1.5 (0.8-1.1) White Blood Count 17.6 x10^3/uL (4.0-11.0) Red Blood Count 4.08 x10^6/uL (3.50-5.40) Hemoglobin 7.9 g/dL (12.0-15.5) Hematocrit 26.3 % (36.0-47.0) Mean Corpuscular Volume 65 fL (79-100) Mean Corpuscular Hemoglobin 19 pg (25-35) Mean Corpuscular Hemoglobin Concent 30 g/dL (31-37) Red Cell Distribution Width 25.7 % (11.5-14.5) Platelet Count 96 x10^3/uL (140-400) Test 11/21/20 07:52 O2 Saturation 99 % (92-99) Arterial Blood pH 7.52 (7.35-7.45) Arterial Blood pCO2 at Patient Temp 30 mmHg (35-46) Arterial Blood pO2 at Patient Temp 127 mmHg (75-108) Arterial Blood HCO3 24 mmol/L (21-28) Arterial Blood Base Excess 1 mmol/L (-3-3) FiO2 35 vent Objective: Assessment: Patient currently in multiorgan failure 1. Severe sepsis source likely GI 2. Leukocytosis and lactic acidosis. 3. Acute kidney injury with severe metabolic acidosis. 4. Abdominal pain, intermittent nausea.Colitis on CT abdomen, Gen surgery evaluated pt 5. Atrial fibrillation/flutter. 6. Acute on chronic congestive heart failure. 7. Valvular insufficiency. MR, severe TR, hepatic congestion 8. History of PFO closure/ASD repair. 9. Acute respiratory failure status post intubation 10. Pulmonary hypertension. 11. Coagulopathy. 12. Abnormal liver function tests , hyperbilirubinemia 13. COVID-19 negative Plan: Plan of Care Continue Dapto, Merrem, micafungin and Zyvox awaiting RT Cardiac cath and SAMMY Cult remain nonrevealing Gen surgery has evaluated pt Monitor labs and cultures. Continue supportive care. Critically ill Prognosis very poor Discussed with nursing staff MEGAN MEHTA MD Nov 21, 2020 11:26
--- NOTE | 2020-11-21 11:32 | PDOC ---
[facility] PROGRESS NOTE Date of Service DOS: DATE: 11/21/20 TIME: 11:25 Chief Complaint Chief Complaint Multifactorial respiratory failure with severe heart failure (15% ejection fraction but was 60% just a few months ago) Status post intubation yesterday Sepsis Colitis Severe lactic acidosis Pneumonia Lactic acidosis Severe symptomatic hypoglycemia KENNETH due to vasomotor nephropathy Acute volume overload Coagulopathy History of atrial fibrillation/atrial flutter Secondary cor pulmonale due to pulmonary hypertension Anemia of chronic disease History of Present Illness History of Present Illness 11/21/2020 Patient seen and evaluated in ICU. Intubated on vent with FiO2 35%, PEEP 5. She is to have right heart cath today. Continue IV antibiotics, per ID. Charts and labs reviewed, discussed with RN. 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 fib Also on CRRT Chart reviewed Discussed with RN She remains extremely critically ill 11/18/2020 Patient seen and examined in the ICU She is now intubated Ejection fraction noted to be 15% She is extremely critically ill volume overloaded desatting to 78% despite being on 80% FiO2 on the vent Her mom is present I spent quite a bit of time discussing the case with her and escorted her to the [facility] where she wants to pray Discussed with RN Discussed with case management Chart reviewed Patient is on assist-control/26/400/80 percent FiO2 with 8 of PEEP We are considering starting CRRT this afternoon She is sedated with Versed fentanyl and Also has Levophed and vasopressin running On IV Zyvox Extremely critically ill 11/16/2020 Patient seen and examined in the ICU CT abdomen reviewed looks like she has some possible colitis Lactic acid has decreased from 22 down to 8 Discussed with RN Discussed with case management Chart reviewed Vitals/I&O Vitals/I&O: Vital Signs Date Time Temp Pulse Resp B/P (MAP) Pulse Ox O2 Delivery O2 Flow Rate FiO2 11/21/20 11:00 117 22 110/65 (80) 100 Ventilator 11/21/20 08:00 96.7 96.7 I & O 11/20/20 11/20/20 11/21/20 15:00 23:00 07:00 Intake Total 1293 ml 313 ml Output Total 75 ml 78 ml 185 ml Balance -75 ml 1215 ml 128 ml Physical Exam Physical Exam: GENERAL: Intubated/sedated HEENT ETT/OGT tube present Neck Right IJ, left HDC, clean LUNGS: Bibasilar Rales HEART: Irregular. ABDOMEN: Mildly distended hypoactive bowel sounds EXTREMITIES: edema bilaterally. NEUROLOGIC: Intubated right femoral arterial line present DERM mottled skin General: Other (Sedated and intubated) Heart: Other (Irregular rhythm) Lungs: Clear Abdomen: Normal bowel sounds, Soft, Other (Minimal OG output) Extremities: No cyanosis Skin: No rashes, No breakdown Labs Labs: Laboratory Tests Test 11/20/20 11:54 11/20/20 17:45 11/21/20 00:03 11/21/20 06:04 Sodium Level 134 mmol/L (136-145) 135 mmol/L (136-145) 134 mmol/L (136-145) 136 mmol/L (136-145) Potassium Level 3.0 mmol/L (3.5-5.1) 3.3 mmol/L (3.5-5.1) 3.6 mmol/L (3.5-5.1) 3.5 mmol/L (3.5-5.1) Chloride Level 101 mmol/L (98-107) 101 mmol/L (98-107) 101 mmol/L (98-107) 103 mmol/L (98-107) Carbon Dioxide Level 26 mmol/L (21-32) 26 mmol/L (21-32) 25 mmol/L (21-32) 24 mmol/L (21-32) Anion Gap 7 (6-14) 8 (6-14) 8 (6-14) 9 (6-14) Blood Urea Nitrogen 13 mg/dL (7-20) 12 mg/dL (7-20) 11 mg/dL (7-20) 12 mg/dL (7-20) Creatinine 0.9 mg/dL (0.6-1.0) 0.8 mg/dL (0.6-1.0) 0.8 mg/dL (0.6-1.0) 0.7 mg/dL (0.6-1.0) Estimated GFR (Cockcroft-Gault) 84.3 96.6 96.6 112.7 BUN/Creatinine Ratio 14 (6-20) 15 (6-20) 14 (6-20) 17 (6-20) Glucose Level 134 mg/dL (70-99) 103 mg/dL (70-99) 118 mg/dL (70-99) 104 mg/dL (70-99) Calcium Level 8.1 mg/dL (8.5-10.1) 8.0 mg/dL (8.5-10.1) 8.2 mg/dL (8.5-10.1) 8.2 mg/dL (8.5-10.1) Phosphorus Level 1.5 mg/dL (2.6-4.7) 2.2 mg/dL (2.6-4.7) 1.8 mg/dL (2.6-4.7) 3.1 mg/dL (2.6-4.7) Magnesium Level 2.5 mg/dL (1.8-2.4) 2.5 mg/dL (1.8-2.4) 2.6 mg/dL (1.8-2.4) 2.5 mg/dL (1.8-2.4) Total Bilirubin 5.3 mg/dL (0.2-1.0) 5.4 mg/dL (0.2-1.0) 5.5 mg/dL (0.2-1.0) 5.5 mg/dL (0.2-1.0) Aspartate Amino Transf (AST/SGOT) 176 U/L (15-37) 164 U/L (15-37) 159 U/L (15-37) 149 U/L (15-37) Alanine Aminotransferase (ALT/SGPT) 101 U/L (14-59) 103 U/L (14-59) 105 U/L (14-59) 103 U/L (14-59) Alkaline Phosphatase 124 U/L (46-116) 166 U/L (46-116) 122 U/L (46-116) 127 U/L (46-116) Total Protein 5.7 g/dL (6.4-8.2) 6.0 g/dL (6.4-8.2) 6.2 g/dL (6.4-8.2) 6.5 g/dL (6.4-8.2) Albumin 2.4 g/dL (3.4-5.0) 2.4 g/dL (3.4-5.0) 2.5 g/dL (3.4-5.0) 2.6 g/dL (3.4-5.0) Albumin/Globulin Ratio 0.7 (1.0-1.7) 0.7 (1.0-1.7) 0.7 (1.0-1.7) 0.7 (1.0- 1.7) Prothrombin Time 19.4 SEC (11.7-14.0) 17.8 SEC (11.7-14.0) Prothromb Time International Ratio 1.7 (0.8-1.1) 1.5 (0.8-1.1) White Blood Count 17.6 x10^3/uL (4.0-11.0) Red Blood Count 4.08 x10^6/uL (3.50-5.40) Hemoglobin 7.9 g/dL (12.0-15.5) Hematocrit 26.3 % (36.0-47.0) Mean Corpuscular Volume 65 fL (79-100) Mean Corpuscular Hemoglobin 19 pg (25-35) Mean Corpuscular Hemoglobin Concent 30 g/dL (31-37) Red Cell Distribution Width 25.7 % (11.5-14.5) Platelet Count 96 x10^3/uL (140-400) Test 11/21/20 07:52 O2 Saturation 99 % (92-99) Arterial Blood pH 7.52 (7.35-7.45) Arterial Blood pCO2 at Patient Temp 30 mmHg (35-46) Arterial Blood pO2 at Patient Temp 127 mmHg (75-108) Arterial Blood HCO3 24 mmol/L (21-28) Arterial Blood Base Excess 1 mmol/L (-3-3) FiO2 35 vent Assessment and Plan Assessmemt and Plan Problems Medical Problems: (1) KENNETH (acute kidney injury) Status: Acute (2) Atrial fibrillation with RVR Status: Acute (3) CHF (congestive heart failure) Status: Acute (4) Hypoglycemia Status: Acute (5) Pneumonia Status: Acute Comment Review of Relevant I have reviewed the following items josé (where applicable) has been applied. Medications: Current Medications Medications (Trade) Dose Ordered Sig/Kailey Route PRN Reason Start Time Stop Time Status Last Admin Dose Admin Potassium Chloride/Water 100 ml @ 100 mls/hr 1X ONCE IV 11/20/20 12:00 11/20/20 12:59 DC 11/20/20 11:38 Potassium Chloride/Water 100 ml @ 100 mls/hr Q1H IV 11/20/20 19:00 11/20/20 20:59 DC 11/20/20 20:15 Sodium Phosphate 20 mmol/Sodium Chloride 256.6667 ml @ 64.167 m... 1X ONCE IV 11/21/20 01:00 11/21/20 04:59 DC 11/21/20 00:54 Justifications for Admission Other Justification chf exacerbation ANGÉLICA RICHTER MD Nov 21, 2020 11:32
--- NOTE | 2020-11-21 11:39 | PDOC ---
PULMONARY PROGRESS NOTES DATE: 11/21/20 TIME: 11:36 Subjective Patient intubated 11/17 remains on vent support 16/400/5/35% CRRT on hold for possible cardiac cath Hypothermic despite bear hugger No other concerns overnight Vitals Vital Signs Date Time Temp Pulse Resp B/P (MAP) Pulse Ox O2 Delivery O2 Flow Rate FiO2 11/21/20 11:00 117 22 110/65 (80) 100 Ventilator 11/21/20 08:00 96.7 96.7 Comments Intubated Lungs: Clear Cardiovascular: S1, S2 Abdomen: Soft Neuro Exam: Alert Extremities: No Edema Skin: Warm, Dry Labs Laboratory Tests Test 11/19/20 11:49 11/19/20 17:15 11/20/20 00:09 11/20/20 06:00 Prothrombin Time 27.6 SEC (11.7-14.0) 24.4 SEC (11.7-14.0) 20.6 SEC (11.7-14.0) Prothromb Time International Ratio 2.6 (0.8-1.1) 2.2 (0.8-1.1) 1.8 (0.8-1.1) Sodium Level 133 mmol/L (136-145) 134 mmol/L (136-145) 136 mmol/L (136-145) 135 mmol/L (136-145) Potassium Level 3.5 mmol/L (3.5-5.1) 3.4 mmol/L (3.5-5.1) 3.3 mmol/L (3.5-5.1) 3.4 mmol/L (3.5-5.1) Chloride Level 99 mmol/L (98-107) 100 mmol/L (98-107) 101 mmol/L (98-107) 100 mmol/L (98-107) Carbon Dioxide Level 26 mmol/L (21-32) 27 mmol/L (21-32) 25 mmol/L (21-32) 25 mmol/L (21-32) Anion Gap 8 (6-14) 7 (6-14) 10 (6-14) 10 (6-14) Blood Urea Nitrogen 22 mg/dL (7-20) 19 mg/dL (7-20) 16 mg/dL (7-20) 14 mg/dL (7-20) Creatinine 1.3 mg/dL (0.6-1.0) 1.1 mg/dL (0.6-1.0) 1.1 mg/dL (0.6-1.0) 0.9 mg/dL (0.6-1.0) Estimated GFR (Cockcroft-Gault) 55.2 66.9 66.9 84.3 BUN/Creatinine Ratio 17 (6-20) 17 (6-20) 15 (6-20) 16 (6-20) Glucose Level 141 mg/dL (70-99) 101 mg/dL (70-99) 123 mg/dL (70-99) 112 mg/dL (70-99) Lactic Acid Level 1.9 mmol/L (0.4-2.0) Calcium Level 7.9 mg/dL (8.5-10.1) 7.9 mg/dL (8.5-10.1) 8.0 mg/dL (8.5-10.1) 8.4 mg/dL (8.5-10.1) Phosphorus Level 1.9 mg/dL (2.6-4.7) 2.8 mg/dL (2.6-4.7) 2.0 mg/dL (2.6-4.7) 2.1 mg/dL (2.6-4.7) Magnesium Level 2.3 mg/dL (1.8-2.4) 2.4 mg/dL (1.8-2.4) 2.4 mg/dL (1.8-2.4) 2.6 mg/dL (1.8-2.4) Total Bilirubin 5.3 mg/dL (0.2-1.0) 5.6 mg/dL (0.2-1.0) 5.4 mg/dL (0.2-1.0) 5.7 mg/dL (0.2-1.0) Aspartate Amino Transf (AST/SGOT) 249 U/L (15-37) 244 U/L (15-37) 216 U/L (15-37) 221 U/L (15-37) Alanine Aminotransferase (ALT/SGPT) 112 U/L (14-59) 112 U/L (14-59) 108 U/L (14-59) 116 U/L (14-59) Alkaline Phosphatase 117 U/L (46-116) 117 U/L (46-116) 120 U/L (46-116) 134 U/L (46-116) Total Protein 5.5 g/dL (6.4-8.2) 5.6 g/dL (6.4-8.2) 5.8 g/dL (6.4-8.2) 6.4 g/dL (6.4-8.2) Albumin 2.3 g/dL (3.4-5.0) 2.5 g/dL (3.4-5.0) 2.4 g/dL (3.4-5.0) 2.6 g/dL (3.4-5.0) Albumin/Globulin Ratio 0.7 (1.0-1.7) 0.8 (1.0-1.7) 0.7 (1.0-1.7) 0.7 (1.0- 1.7) White Blood Count 18.1 x10^3/uL (4.0-11.0) Red Blood Count 4.19 x10^6/uL (3.50-5.40) Hemoglobin 8.1 g/dL (12.0-15.5) Hematocrit 26.9 % (36.0-47.0) Mean Corpuscular Volume 64 fL (79-100) Mean Corpuscular Hemoglobin 19 pg (25-35) Mean Corpuscular Hemoglobin Concent 30 g/dL (31-37) Red Cell Distribution Width 25.6 % (11.5-14.5) Platelet Count 133 x10^3/uL (140-400) Fibrinogen 277 mg/dL (200-440) Test 11/20/20 07:45 11/20/20 11:54 11/20/20 17:45 11/21/20 00:03 O2 Saturation 99 % (92-99) Arterial Blood pH 7.42 (7.35-7.45) Arterial Blood pCO2 at Patient Temp 37 mmHg (35-46) Arterial Blood pO2 at Patient Temp 193 mmHg (75-108) Arterial Blood HCO3 23 mmol/L (21-28) Arterial Blood Base Excess -1 mmol/L (-3-3) FiO2 40%+6 Sodium Level 134 mmol/L (136-145) 135 mmol/L (136-145) 134 mmol/L (136-145) Potassium Level 3.0 mmol/L (3.5-5.1) 3.3 mmol/L (3.5-5.1) 3.6 mmol/L (3.5-5.1) Chloride Level 101 mmol/L (98-107) 101 mmol/L (98-107) 101 mmol/L (98-107) Carbon Dioxide Level 26 mmol/L (21-32) 26 mmol/L (21-32) 25 mmol/L (21-32) Anion Gap 7 (6-14) 8 (6-14) 8 (6-14) Blood Urea Nitrogen 13 mg/dL (7-20) 12 mg/dL (7-20) 11 mg/dL (7-20) Creatinine 0.9 mg/dL (0.6-1.0) 0.8 mg/dL (0.6-1.0) 0.8 mg/dL (0.6-1.0) Estimated GFR (Cockcroft-Gault) 84.3 96.6 96.6 BUN/Creatinine Ratio 14 (6-20) 15 (6-20) 14 (6-20) Glucose Level 134 mg/dL (70-99) 103 mg/dL (70-99) 118 mg/dL (70-99) Calcium Level 8.1 mg/dL (8.5-10.1) 8.0 mg/dL (8.5-10.1) 8.2 mg/dL (8.5-10.1) Phosphorus Level 1.5 mg/dL (2.6-4.7) 2.2 mg/dL (2.6-4.7) 1.8 mg/dL (2.6-4.7) Magnesium Level 2.5 mg/dL (1.8-2.4) 2.5 mg/dL (1.8-2.4) 2.6 mg/dL (1.8-2.4) Total Bilirubin 5.3 mg/dL (0.2-1.0) 5.4 mg/dL (0.2-1.0) 5.5 mg/dL (0.2-1.0) Aspartate Amino Transf (AST/SGOT) 176 U/L (15-37) 164 U/L (15-37) 159 U/L (15-37) Alanine Aminotransferase (ALT/SGPT) 101 U/L (14-59) 103 U/L (14-59) 105 U/L (14-59) Alkaline Phosphatase 124 U/L (46-116) 166 U/L (46-116) 122 U/L (46-116) Total Protein 5.7 g/dL (6.4-8.2) 6.0 g/dL (6.4-8.2) 6.2 g/dL (6.4-8.2) Albumin 2.4 g/dL (3.4-5.0) 2.4 g/dL (3.4-5.0) 2.5 g/dL (3.4-5.0) Albumin/Globulin Ratio 0.7 (1.0-1.7) 0.7 (1.0-1.7) 0.7 (1.0-1.7) Prothrombin Time 19.4 SEC (11.7-14.0) Prothromb Time International Ratio 1.7 (0.8-1.1) Test 11/21/20 06:04 11/21/20 07:52 White Blood Count 17.6 x10^3/uL (4.0-11.0) Red Blood Count 4.08 x10^6/uL (3.50-5.40) Hemoglobin 7.9 g/dL (12.0-15.5) Hematocrit 26.3 % (36.0-47.0) Mean Corpuscular Volume 65 fL (79-100) Mean Corpuscular Hemoglobin 19 pg (25-35) Mean Corpuscular Hemoglobin Concent 30 g/dL (31-37) Red Cell Distribution Width 25.7 % (11.5-14.5) Platelet Count 96 x10^3/uL (140-400) Prothrombin Time 17.8 SEC (11.7-14.0) Prothromb Time International Ratio 1.5 (0.8-1.1) Sodium Level 136 mmol/L (136-145) Potassium Level 3.5 mmol/L (3.5-5.1) Chloride Level 103 mmol/L (98-107) Carbon Dioxide Level 24 mmol/L (21-32) Anion Gap 9 (6-14) Blood Urea Nitrogen 12 mg/dL (7-20) Creatinine 0.7 mg/dL (0.6-1.0) Estimated GFR (Cockcroft-Gault) 112.7 BUN/Creatinine Ratio 17 (6-20) Glucose Level 104 mg/dL (70-99) Calcium Level 8.2 mg/dL (8.5-10.1) Phosphorus Level 3.1 mg/dL (2.6-4.7) Magnesium Level 2.5 mg/dL (1.8-2.4) Total Bilirubin 5.5 mg/dL (0.2-1.0) Aspartate Amino Transf (AST/SGOT) 149 U/L (15-37) Alanine Aminotransferase (ALT/SGPT) 103 U/L (14-59) Alkaline Phosphatase 127 U/L (46-116) Total Protein 6.5 g/dL (6.4-8.2) Albumin 2.6 g/dL (3.4-5.0) Albumin/Globulin Ratio 0.7 (1.0-1.7) O2 Saturation 99 % (92-99) Arterial Blood pH 7.52 (7.35-7.45) Arterial Blood pCO2 at Patient Temp 30 mmHg (35-46) Arterial Blood pO2 at Patient Temp 127 mmHg (75-108) Arterial Blood HCO3 24 mmol/L (21-28) Arterial Blood Base Excess 1 mmol/L (-3-3) FiO2 35 vent Laboratory Tests Test 11/20/20 11:54 11/20/20 17:45 11/21/20 00:03 11/21/20 06:04 Sodium Level 134 mmol/L (136-145) 135 mmol/L (136-145) 134 mmol/L (136-145) 136 mmol/L (136-145) Potassium Level 3.0 mmol/L (3.5-5.1) 3.3 mmol/L (3.5-5.1) 3.6 mmol/L (3.5-5.1) 3.5 mmol/L (3.5-5.1) Chloride Level 101 mmol/L (98-107) 101 mmol/L (98-107) 101 mmol/L (98-107) 103 mmol/L (98-107) Carbon Dioxide Level 26 mmol/L (21-32) 26 mmol/L (21-32) 25 mmol/L (21-32) 24 mmol/L (21-32) Anion Gap 7 (6-14) 8 (6-14) 8 (6-14) 9 (6-14) Blood Urea Nitrogen 13 mg/dL (7-20) 12 mg/dL (7-20) 11 mg/dL (7-20) 12 mg/dL (7-20) Creatinine 0.9 mg/dL (0.6-1.0) 0.8 mg/dL (0.6-1.0) 0.8 mg/dL (0.6-1.0) 0.7 mg/dL (0.6-1.0) Estimated GFR (Cockcroft-Gault) 84.3 96.6 96.6 112.7 BUN/Creatinine Ratio 14 (6-20) 15 (6-20) 14 (6-20) 17 (6-20) Glucose Level 134 mg/dL (70-99) 103 mg/dL (70-99) 118 mg/dL (70-99) 104 mg/dL (70-99) Calcium Level 8.1 mg/dL (8.5-10.1) 8.0 mg/dL (8.5-10.1) 8.2 mg/dL (8.5-10.1) 8.2 mg/dL (8.5-10.1) Phosphorus Level 1.5 mg/dL (2.6-4.7) 2.2 mg/dL (2.6-4.7) 1.8 mg/dL (2.6-4.7) 3.1 mg/dL (2.6-4.7) Magnesium Level 2.5 mg/dL (1.8-2.4) 2.5 mg/dL (1.8-2.4) 2.6 mg/dL (1.8-2.4) 2.5 mg/dL (1.8-2.4) Total Bilirubin 5.3 mg/dL (0.2-1.0) 5.4 mg/dL (0.2-1.0) 5.5 mg/dL (0.2-1.0) 5.5 mg/dL (0.2-1.0) Aspartate Amino Transf (AST/SGOT) 176 U/L (15-37) 164 U/L (15-37) 159 U/L (15-37) 149 U/L (15-37) Alanine Aminotransferase (ALT/SGPT) 101 U/L (14-59) 103 U/L (14-59) 105 U/L (14-59) 103 U/L (14-59) Alkaline Phosphatase 124 U/L (46-116) 166 U/L (46-116) 122 U/L (46-116) 127 U/L (46-116) Total Protein 5.7 g/dL (6.4-8.2) 6.0 g/dL (6.4-8.2) 6.2 g/dL (6.4-8.2) 6.5 g/dL (6.4-8.2) Albumin 2.4 g/dL (3.4-5.0) 2.4 g/dL (3.4-5.0) 2.5 g/dL (3.4-5.0) 2.6 g/dL (3.4-5.0) Albumin/Globulin Ratio 0.7 (1.0-1.7) 0.7 (1.0-1.7) 0.7 (1.0-1.7) 0.7 (1.0- 1.7) Prothrombin Time 19.4 SEC (11.7-14.0) 17.8 SEC (11.7-14.0) Prothromb Time International Ratio 1.7 (0.8-1.1) 1.5 (0.8-1.1) White Blood Count 17.6 x10^3/uL (4.0-11.0) Red Blood Count 4.08 x10^6/uL (3.50-5.40) Hemoglobin 7.9 g/dL (12.0-15.5) Hematocrit 26.3 % (36.0-47.0) Mean Corpuscular Volume 65 fL (79-100) Mean Corpuscular Hemoglobin 19 pg (25-35) Mean Corpuscular Hemoglobin Concent 30 g/dL (31-37) Red Cell Distribution Width 25.7 % (11.5-14.5) Platelet Count 96 x10^3/uL (140-400) Test 11/21/20 07:52 O2 Saturation 99 % (92-99) Arterial Blood pH 7.52 (7.35-7.45) Arterial Blood pCO2 at Patient Temp 30 mmHg (35-46) Arterial Blood pO2 at Patient Temp 127 mmHg (75-108) Arterial Blood HCO3 24 mmol/L (21-28) Arterial Blood Base Excess 1 mmol/L (-3-3) FiO2 35 vent Medications Active Scripts Medications Dose Route/Sig Max Daily Dose Days Date Category Amiodarone Hcl 200 Mg Tablet 200 Mg PO DAILY 30 09/29/20 Rx Eliquis (Apixaban) 5 Mg Tablet 5 Mg PO BID 30 09/29/20 Rx Doxycycline Hyclate 100 Mg Tablet 100 Mg PO BID 5 09/29/20 Rx Klor-Con M20 (Potassium Chloride) 20 Meq Tab.er.prt 20 Meq PO DAILYWBKFT 30 09/29/20 Rx Furosemide 40 Mg Tablet 40 Mg PO DAILY 30 09/29/20 Rx Omeprazole 20 Mg Capsule.dr 1 Cap PO DAILY 08/08/20 Reported Metoprolol Tartrate 25 Mg Tablet 1 Tab PO BID 12/20/14 Reported Feosol (Ferrous Sulfate) 325 Mg Tablet 325 Mg PO DAILY 12/20/14 Reported Aspirin 325 Mg Tablet 1 Tab PO DAILY 12/20/14 Reported Amitriptyline Hcl 50 Mg Tablet 1 Tab PO QHS 12/17/14 Reported Ultram (Tramadol Hcl) 50 Mg Tablet 1 Tab PO Q6HRS PRN 11/01/14 Reported Dulera 100 Mcg/5 Mcg Inhaler (Mometasone/Formoterol) 13 Gm Hfa.aer.ad 2 Puff IH BID 11/01/14 Reported Lidoderm (Lidocaine) 700 Mg Adh..patch 1 Patch TP DAILY PRN 11/01/14 Reported Neurontin (Gabapentin) 300 Mg Capsule 2 Cap PO BID 11/01/14 Reported Flonase (Fluticasone Propionate) 16 Gm [place].susp 2 [place] NS DAILY 11/01/14 Reported Cyclobenzaprine Hcl 10 Mg Tablet 1 Tab PO TID PRN 11/01/14 Reported Celexa (Citalopram Hydrobromide) 40 Mg Tablet 1 Tab PO DAILY 11/01/14 Reported Cetirizine Hcl 10 Mg Tablet 1 Tab PO DAILY 11/01/14 Reported Proair Hfa Inhaler (Albuterol Sulfate) 8.5 Gm Hfa.aer.ad 2 Puff IH PRN Q4-6HRS 11/01/14 Reported Comments CXR IMPRESSION: 1. New left internal jugular temporary dialysis catheter in acceptable position. Otherwise stable support lines and tubes 2. Increasing pulmonary infiltrates and small right pleural effusion Impression . IMPRESSION: 1. Acute hypoxemic respiratory failure multifactorial 2. Septic shock etiology on clear 3. Possible pneumonia, gram-negative, gram-positive. Chest x-ray abnormal suspect combination of pulmonary edema and pneumonia 4. Acute kidney injury. 5. Colitis seen on CT abdomen and pelvis 6. Atrial fibrillation/atrial flutter. 7. Acute on chronic heart failure. 8. Bilateral pleural effusions. 9. History of ASD, status post closure. 10. Chronic obstructive pulmonary disease with exacerbation. 11. [id number] cor pulmonale. 12. Severe metabolic acidosis 13. coagulopathy 14. Acute kidney injury 15. Acute liver failure 16. Positive urine drug screen 17. Cardiomyopathy ejection fraction of 15% Plan . Continue current support with assist control ventilation Fi02 35%/ PEEP of 5 Follow CXR/ABG- reduce rate to 12 COVID-19 negative Follow hematology recs ---- tranexamic acid/ Follow INR Follow nephrology recs -- Antibiotics per infectious disease servic Follow cardiology input patient echocardiogram revealed ejection fraction 15%, and Afib now off A/C-- possible cardiac cath today Follow surgery recs- continue OG, CT ABD colitis/ illeus-- no surgical plans at this time Nutritional support TPN ? DVT/GI PPX : SCDS/protonix D/W RN and RT critically ill Total cumulative critical care time from [id number] DARIAN GUZMAN MD Nov 21, 2020 11:39
--- NOTE | 2020-11-21 11:41 | PDOC ---
Date of Service: DATE: 11/21/20 TIME: 11:33 Objective: Objective: I saw pt earlier during [employer] downtime. D/w nurse - OG output slowed, abd less distended, plans to try tube feeds later. BP better, off pressors. Will resume CRRT. No surgery plans. S/p Kcentra 11/18. Reviewed notes - plans for cardiac cath at some point. Vital Signs: Vital Signs Date Time Temp Pulse Resp B/P (MAP) Pulse Ox O2 Delivery O2 Flow Rate FiO2 11/21/20 11:00 117 22 110/65 (80) 100 Ventilator 11/21/20 08:00 96.7 96.7 Labs: Laboratory Tests Test 11/20/20 11:54 11/20/20 17:45 11/21/20 00:03 11/21/20 06:04 Sodium Level 134 mmol/L 135 mmol/L 134 mmol/L 136 mmol/L Potassium Level 3.0 mmol/L 3.3 mmol/L 3.6 mmol/L 3.5 mmol/L Chloride Level 101 mmol/L 101 mmol/L 101 mmol/L 103 mmol/L Carbon Dioxide Level 26 mmol/L 26 mmol/L 25 mmol/L 24 mmol/L Anion Gap 7 8 8 9 Blood Urea Nitrogen 13 mg/dL 12 mg/dL 11 mg/dL 12 mg/dL Creatinine 0.9 mg/dL 0.8 mg/dL 0.8 mg/dL 0.7 mg/dL Estimated GFR (Cockcroft-Gault) 84.3 96.6 96.6 112.7 BUN/Creatinine Ratio 14 15 14 17 Glucose Level 134 mg/dL 103 mg/dL 118 mg/dL 104 mg/dL Calcium Level 8.1 mg/dL 8.0 mg/dL 8.2 mg/dL 8.2 mg/dL Phosphorus Level 1.5 mg/dL 2.2 mg/dL 1.8 mg/dL 3.1 mg/dL Magnesium Level 2.5 mg/dL 2.5 mg/dL 2.6 mg/dL 2.5 mg/dL Total Bilirubin 5.3 mg/dL 5.4 mg/dL 5.5 mg/dL 5.5 mg/dL Aspartate Amino Transf (AST/SGOT) 176 U/L 164 U/L 159 U/L 149 U/L Alanine Aminotransferase (ALT/SGPT) 101 U/L 103 U/L 105 U/L 103 U/L Alkaline Phosphatase 124 U/L 166 U/L 122 U/L 127 U/L Total Protein 5.7 g/dL 6.0 g/dL 6.2 g/dL 6.5 g/dL Albumin 2.4 g/dL 2.4 g/dL 2.5 g/dL 2.6 g/dL Albumin/Globulin Ratio 0.7 0.7 0.7 0.7 Prothrombin Time 19.4 SEC 17.8 SEC Prothromb Time International Ratio 1.7 1.5 White Blood Count 17.6 x10^3/uL Red Blood Count 4.08 x10^6/uL Hemoglobin 7.9 g/dL Hematocrit 26.3 % Mean Corpuscular Volume 65 fL Mean Corpuscular Hemoglobin 19 pg Mean Corpuscular Hemoglobin Concent 30 g/dL Red Cell Distribution Width 25.7 % Platelet Count 96 x10^3/uL Test 11/21/20 07:52 O2 Saturation 99 % Arterial Blood pH 7.52 Arterial Blood pCO2 at Patient Temp 30 mmHg Arterial Blood pO2 at Patient Temp 127 mmHg Arterial Blood HCO3 24 mmol/L Arterial Blood Base Excess 1 mmol/L FiO2 35 vent BLOOD CULTURE Final NO GROWTH AFTER 5 DAYS BLOOD CULTURE Prelim NO GROWTH AFTER 3 DAYS Imaging: Abd US IMPRESSION: 1. No evidence of Budd-Chiari. 2. Hepatic venous congestion with intermittent reversal of flow in the main portal vein, suggesting elevated right heart pressures, as may be seen with tricuspid regurgitation. Recommend correlation with echocardiography PE: GEN: intubated LUNGS: vent HEART: tachycardic ABD: groaning BS, soft NEURO/PSYCH: sedated A/P: Resp failure, KENNETH COREEN - stable Abd distention, hypothermia, hypotension, lactic acidosis, coagulopathy, elevated LFTs - better Abnormal CT - possible colitis (ascending colon) H/o ASD repair, CHF (EF 15%), A Fib - previously on amiodarone and Eliquis COVID negative 11/17 -- Plans as above, continue support per GI. Justicifation of Admission Dx: Justifications for Admission: Justification of Admission Dx: Yes CHF: Cardiac Arrhythmias EMILEE WRIGHT Nov 21, 2020 11:41
[2020-11-21] MEDS ORDERED: TPN PER PHARMACY MC PRN (11:45)
[2020-11-21] MEDS: MICAFUNGIN 100 MG in IV DEXTROSE 5% 100ML 100 ML IV SCH (12:21)
--- NOTE | 2020-11-21 12:48 | PDOC ---
PROGRESS NOTES Date of Service: DATE: 11/21/20 TIME: 12:48 Subjective Subjective Remains intubated. Presently off pressors. Objective Objective Vital Signs Date Time Temp Pulse Resp B/P (MAP) Pulse Ox O2 Delivery O2 Flow Rate FiO2 11/21/20 12:34 100 Ventilator 11/21/20 12:00 97.6 100 25 110/67 (81) 97.6 Intake and Output 11/21/20 07:00 Intake Total 1606 ml Output Total 338 ml Balance 1268 ml IV Total 1606 ml Output Urine Total 188 ml Gastric Drainage Total 150 ml Physical Exam Abdomen: Normal bowel sounds, Other (Minimal OG output) Heart: Other (Irregular rhythm, PSM left lower PSB) Extremities: No cyanosis, No edema General: Other (Sedated and intubated) HEENT: Other (OG in place as well as endotracheal tube) Lungs: Other (Scattered crepitations bilaterally) Neuro: Other (Able to assess) Skin: No rashes, No breakdown Assessment Assessment 1. Acute on chronic systolic/diastolic HF, cor pulmonale, improving with CRRT. 2D echo showed LVEF 15 to 20%. Plan for right and left heart catheterization tomorrow. 2. Persistent AFIB/flutter: Heart rate relatively well controlled. Amiodarone and Eliquis stopped secondary to transaminitis and coagulopathy respectively. 3. Acute respiratory failure with a/c CHF, possible PNA, cor pulmonale: intubated with vent, pulmonary team following 4. Valvular insufficiency: notable for moderate MR and severe TR. Plan for SAMMY for further evaluation tomorrow. 5. H/o ASD s/p surgical closure: 2014. Stable per recent SAMMY 6. Severe KENNETH, currently on CRRT per nephrology team. 7. Anemia: multifactorial. possible UGI erosions. GI team following. 8. Transaminitis, coagulopathy; INR improved 9. Severe cardiomyopathy: 15-20% 10. Cardiohepatorenal syndrome: contributor to above issues 11. Hypotension, septic/cardiogenic shock, currently off pressors. 12. Hypoglycemia, profound improved 13. Lactic acidosis, secondary to sepsis. ID team following. 14. Abdominal pain; CT with possible colitis 15. Marijuana use Plan Plan of Care Problems Medical Problems: (1) KENNETH (acute kidney injury) Status: Acute (2) Atrial fibrillation with RVR Status: Acute (3) CHF (congestive heart failure) Status: Acute (4) Hypoglycemia Status: Acute (5) Pneumonia Status: Acute Comment Review of Relevant I have reviewed the following items josé (where applicable) has been applied. Labs Laboratory Tests Test 11/20/20 17:45 11/21/20 00:03 11/21/20 06:04 11/21/20 07:52 Prothrombin Time 19.4 SEC (11.7-14.0) 17.8 SEC (11.7-14.0) Prothromb Time International Ratio 1.7 (0.8-1.1) 1.5 (0.8-1.1) Sodium Level 135 mmol/L (136-145) 134 mmol/L (136-145) 136 mmol/L (136-145) Potassium Level 3.3 mmol/L (3.5-5.1) 3.6 mmol/L (3.5-5.1) 3.5 mmol/L (3.5-5.1) Chloride Level 101 mmol/L (98-107) 101 mmol/L (98-107) 103 mmol/L (98-107) Carbon Dioxide Level 26 mmol/L (21-32) 25 mmol/L (21-32) 24 mmol/L (21-32) Anion Gap 8 (6-14) 8 (6-14) 9 (6-14) Blood Urea Nitrogen 12 mg/dL (7-20) 11 mg/dL (7-20) 12 mg/dL (7-20) Creatinine 0.8 mg/dL (0.6-1.0) 0.8 mg/dL (0.6-1.0) 0.7 mg/dL (0.6-1.0) Estimated GFR (Cockcroft-Gault) 96.6 96.6 112.7 BUN/Creatinine Ratio 15 (6-20) 14 (6-20) 17 (6-20) Glucose Level 103 mg/dL (70-99) 118 mg/dL (70-99) 104 mg/dL (70-99) Calcium Level 8.0 mg/dL (8.5-10.1) 8.2 mg/dL (8.5-10.1) 8.2 mg/dL (8.5-10.1) Phosphorus Level 2.2 mg/dL (2.6-4.7) 1.8 mg/dL (2.6-4.7) 3.1 mg/dL (2.6-4.7) Magnesium Level 2.5 mg/dL (1.8-2.4) 2.6 mg/dL (1.8-2.4) 2.5 mg/dL (1.8-2.4) Total Bilirubin 5.4 mg/dL (0.2-1.0) 5.5 mg/dL (0.2-1.0) 5.5 mg/dL (0.2-1.0) Aspartate Amino Transf (AST/SGOT) 164 U/L (15-37) 159 U/L (15-37) 149 U/L (15-37) Alanine Aminotransferase (ALT/SGPT) 103 U/L (14-59) 105 U/L (14-59) 103 U/L (14-59) Alkaline Phosphatase 166 U/L (46-116) 122 U/L (46-116) 127 U/L (46-116) Total Protein 6.0 g/dL (6.4-8.2) 6.2 g/dL (6.4-8.2) 6.5 g/dL (6.4-8.2) Albumin 2.4 g/dL (3.4-5.0) 2.5 g/dL (3.4-5.0) 2.6 g/dL (3.4-5.0) Albumin/Globulin Ratio 0.7 (1.0-1.7) 0.7 (1.0-1.7) 0.7 (1.0-1.7) White Blood Count 17.6 x10^3/uL (4.0-11.0) Red Blood Count 4.08 x10^6/uL (3.50-5.40) Hemoglobin 7.9 g/dL (12.0-15.5) Hematocrit 26.3 % (36.0-47.0) Mean Corpuscular Volume 65 fL (79-100) Mean Corpuscular Hemoglobin 19 pg (25-35) Mean Corpuscular Hemoglobin Concent 30 g/dL (31-37) Red Cell Distribution Width 25.7 % (11.5-14.5) Platelet Count 96 x10^3/uL (140-400) O2 Saturation 99 % (92-99) Arterial Blood pH 7.52 (7.35-7.45) Arterial Blood pCO2 at Patient Temp 30 mmHg (35-46) Arterial Blood pO2 at Patient Temp 127 mmHg (75-108) Arterial Blood HCO3 24 mmol/L (21-28) Arterial Blood Base Excess 1 mmol/L (-3-3) FiO2 35 vent Microbiology 11/17/20 Blood Culture - Preliminary, Resulted NO GROWTH AFTER 3 DAYS 11/15/20 Urine Culture - Final, Complete Medications Current Medications Daptomycin 390 mg/ Sodium Chloride 50 ml @ 100 mls/hr Q48H IV ; Start 11/20/20 at 13:00; Stop 11/18/20 at 16:23; Status DC Info (Tpn Per Pharmacy) 1 each PRN DAILY PRN MC SEE COMMENTS; Start 11/21/20 at 11:45; Status UNV Potassium Chloride/Water 100 ml @ 100 mls/hr Q1H IV Last administered on 11/20/20at 20:15; Start 11/20/20 at 19:00; Stop 11/20/20 at 20:59; Status DC Sodium Phosphate 20 mmol/Sodium Chloride 256.6667 ml @ 64.167 m... 1X ONCE IV Last administered on 11/21/20at 00:54; Start 11/21/20 at 01:00; Stop 11/21/20 at 04:59; Status DC Vitals/I & O Vital Sign - Last 24 Hours 11/20/20 11/20/20 11/20/20 11/20/20 13:00 14:00 15:00 15:50 Pulse 75 76 76 Resp 25 B/P (MAP) 113/57 (75) 115/52 (73) 113/55 (74) Pulse Ox 100 100 100 100 O2 Delivery Ventilator Ventilator Ventilator Ventilator 11/20/20 11/20/20 11/20/20 11/20/20 16:00 16:00 16:00 17:00 Temp 97.8 97.8 Pulse 83 76 87 Resp 25 25 B/P (MAP) 114/54 (74) 108/52 (70) 116/55 (75) Pulse Ox 100 100 O2 Delivery Mechanical Ventilator Ventilator Ventilator 11/20/20 11/20/20 11/20/20 11/20/20 18:00 19:00 20:00 20:00 Temp 98.2 98.2 Pulse 76 88 84 Resp 26 24 24 B/P (MAP) 111/56 (74) 104/56 (72) 115/63 (80) Pulse Ox 100 100 100 O2 Delivery Ventilator Ventilator Ventilator Mechanical Ventilator 11/20/20 11/20/20 11/20/20 11/20/20 20:00 21:00 21:51 21:52 Pulse 84 85 Resp B/P (MAP) 115/63 (80) 118/64 (82) Pulse Ox 100 100 100 O2 Delivery Ventilator Ventilator Ventilator 11/20/20 11/20/20 11/20/20 11/20/20 22:00 22:52 23:00 23:22 Pulse 83 80 Resp 28 28 28 28 B/P (MAP) 133/77 (95) 130/79 (96) Pulse Ox 100 100 100 100 O2 Delivery Ventilator Ventilator Ventilator Ventilator 11/20/20 11/20/20 11/20/20 11/21/20 23:59 23:59 23:59 01:00 Temp 97.4 97.4 Pulse 81 81 73 Resp 24 B/P (MAP) 138/73 (94) 138/73 (94) 131/74 (93) Pulse Ox 100 100 O2 Delivery Ventilator Mechanical Ventilator Ventilator 11/21/20 11/21/20 11/21/20 11/21/20 01:04 02:00 03:00 04:00 Pulse 85 74 74 Resp 24 B/P (MAP) 139/80 (99) 126/60 (82) 131/71 (91) Pulse Ox 100 100 100 O2 Delivery Ventilator Ventilator Ventilator 11/21/20 11/21/20 11/21/20 11/21/20 04:00 04:00 04:25 05:00 Temp 97.3 97.3 Pulse 74 74 Resp 24 26 B/P (MAP) 131/71 (91) 127/68 (87) Pulse Ox 100 100 100 O2 Delivery Mechanical Ventilator Ventilator Ventilator Ventilator 11/21/20 11/21/20 11/21/20 11/21/20 06:00 07:00 07:40 07:47 Pulse 73 74 74 Resp 24 24 B/P (MAP) 133/75 (94) 133/70 (91) 122/60 (80) Pulse Ox 100 100 100 O2 Delivery Ventilator Ventilator Ventilator 2/11/21/20 11/21/20 11/21/20 08:00 08:00 09:00 10:00 Temp 96.7 96.7 Pulse 90 108 121 Resp 23 24 25 B/P (MAP) 142/70 (94) 110/58 (75) 122/63 (82) Pulse Ox 100 100 100 O2 Delivery Ventilator Mechanical Ventilator Ventilator Ventilator 11/21/20 11/21/20 11/21/20 11/21/20 11:00 12:00 12:00 12:00 Temp 97.6 97.6 Pulse 117 100 100 Resp 22 25 B/P (MAP) 110/65 (80) 110/67 (81) 110/67 (81) Pulse Ox 100 100 O2 Delivery Ventilator Mechanical Ventilator Ventilator 11/21/20 12:34 Pulse Ox 100 O2 Delivery Ventilator Intake and Output 11/20/20 11/20/20 11/21/20 15:00 23:00 07:00 Intake Total 1293 ml 313 ml Output Total 75 ml 78 ml 185 ml Balance -75 ml 1215 ml 128 ml SAAD YAN MD Nov 21, 2020 12:48
--- NOTE | 2020-11-21 14:33 | PDOC ---
DATE OF SERVICE DATE: 11/21/20 TIME: 14:33 SUBJECTIVE ROS seen on CRRT, No concerns voiced by nursing .remains Intubated OBJECTIVE Vital Signs Vital Signs Date Time Temp Pulse Resp B/P (MAP) Pulse Ox O2 Delivery O2 Flow Rate FiO2 11/21/20 14:00 83 22 145/86 (105) 100 Ventilator 11/21/20 12:00 97.6 97.6 I & 0 Intake and Output 11/21/20 07:00 Intake Total 1606 ml Output Total 338 ml Balance 1268 ml IV Total 1606 ml Output Urine Total 188 ml Gastric Drainage Total 150 ml PHYSICAL EXAM Physical Exam General: Intubated, sedated HEENT: OG, EG + Neck supple Lungs: diminished bases Heart: S1S2 Abdomen: Soft, Extremities: Trace Bilat LE edema + Neuro: sedated, intubated Sky + Skin No rash DIAGNOSIS/ASSESSMENT Assessment & Plan KENNETH - Oligoanuric now , ATN , UOP may be better CRRT started on 11/18, tolerating well, discussed treatment plan with nursing Supportive care, Strict I/O, monitor , replace E-Lytes as indicated .May switch to HD tomorrow indicated and stable off pressors HyperKalemia- was on PO KCL , resolved Abdominal pain POA - no surgery planned per Sepsis- elevated Lactic acid Metabolic acidosis POA- 2/2 Lactic acidosis, Bicarb Normal on CRRT Elevated LFT's Acute respiratory failure - Moderate right and small left pleural effusion with hazy adjacent airspace disease may relate to pulmonary edema. Acute on chronic CHF exacerbation last echo in July 2020 showed EF of 60-65% and severely dilated right ventricle Valvular insufficiency: notable for moderate MR and mod to severe TR Hx of of open ASD closure: 2014. Stable per recent SAMMY Severe symptomatic hypoglycemia POA History of atrial fibrillation/atrial flutter Secondary cor pulmonale due to pulmonary hypertension Anemia of chronic disease- Fe def , Tsat 4, Defer to primary COMMENT/RELEVANT DATA Meds Current Medications Medications (Trade) Dose Ordered Sig/Kailey Start Time Stop Time Status Last Admin Dose Admin Acetaminophen (Tylenol) 650 mg PRN Q4HRS PRN 11/15/20 16:15 Albumin Human 500 ml @ 125 mls/hr 1X ONCE 11/17/20 15:15 11/17/20 19:14 DC 11/17/20 15:44 125 MLS/HR Albuterol/ Ipratropium (Duoneb) 3 ml RTQID 11/17/20 09:00 11/21/20 12:32 3 ML Amiodarone HCl (Cordarone) 200 mg DAILY 11/16/20 09:00 11/15/20 16:38 DC Aspirin (Tatianna Aspirin) 325 mg DAILY 11/16/20 09:00 11/15/20 16:38 DC Budesonide (Pulmicort) 0.5 mg RTBID 11/17/20 09:00 11/21/20 07:47 0.5 MG Calcium Carbonate/ Glycine (Tums) 1,000 mg PRN Q4HRS PRN 11/16/20 21:30 11/16/20 21:37 1,000 MG Calcium Gluconate 1000 mg/Sodium Chloride 110 ml @ 220 mls/hr 1X ONCE 11/17/20 17:15 11/17/20 17:44 DC 11/17/20 17:36 220 MLS/HR Cefepime HCl (Maxipime) 2 gm Q24H 11/15/20 17:00 11/17/20 11:51 DC 11/16/20 16:30 2 GM Chlorhexidine Gluconate (Peridex) 15 ml BID 11/17/20 21:00 11/19/20 20:39 DC 11/19/20 09:00 15 ML Citalopram Hydrobromide (CeleXA) 40 mg DAILY 11/16/20 09:00 11/21/20 10:59 40 MG Daptomycin 390 mg/ Sodium Chloride 50 ml @ 100 mls/hr Q48H 11/20/20 13:00 11/18/20 16:23 DC Daptomycin 500 mg/ Sodium Chloride 50 ml @ 100 mls/hr Q48H 11/19/20 21:00 11/19/20 20:48 100 MLS/HR Dextrose (Dextrose 50%-Water Syringe) 12.5 gm PRN Q15MIN PRN 11/15/20 16:15 Dextrose/Sodium Chloride 1,000 ml @ 50 mls/hr Q20H 11/15/20 16:00 11/19/20 17:06 DC 11/17/20 09:28 50 MLS/HR Digoxin (Lanoxin) 500 mcg 1X ONCE 11/17/20 15:30 11/17/20 15:31 DC 11/17/20 15:43 500 MCG Docusate Sodium (Colace) 100 mg PRN DAILY PRN 11/15/20 16:15 Epinephrine HCl 10 mg/Sodium Chloride 250 ml @ 11.85 mls/ hr CONT PRN 11/17/20 17:30 11/17/20 22:09 47.4 MLS/HR Epinephrine HCl 5 mg/Sodium Chloride 255 ml @ 24.266 mls/ hr CONT PRN 11/17/20 14:45 11/17/20 20:00 DC 11/17/20 19:44 121.328 MLS/HR Etomidate (Amidate) 12 mg 1X ONCE 11/17/20 14:15 11/17/20 14:16 DC 11/17/20 14:15 12 MG Fentanyl Citrate 55 ml @ 0 mls/hr CONT PRN PRN 11/19/20 21:00 11/20/20 22:52 3 MLS/HR Fentanyl Citrate (Fentanyl 2ml Vial) 50 mcg PRN Q1HR PRN 11/17/20 14:00 Fluticasone Propionate (Flonase) 2 spray DAILY 11/16/20 09:00 11/17/20 08:37 2 SPRAY Furosemide (Lasix) 40 mg 1X ONCE 11/16/20 14:00 11/16/20 14:01 DC 11/16/20 14:08 40 MG Gabapentin (Neurontin) 600 mg BID 11/15/20 21:00 11/21/20 10:59 600 MG Heparin Sodium (Porcine) (Heparin Sodium) 5,000 unit Q12HR 11/15/20 21:00 11/15/20 16:17 DC Hydrocortisone Sodium Succinate (Solu-CORTEF) 100 mg Q8HRS 11/17/20 22:00 11/21/20 14:23 100 MG Info (Tpn Per Pharmacy) 1 each PRN DAILY PRN 11/21/20 11:45 UNV Lidocaine HCl (Buffered Lidocaine 1%) 6 ml 1X ONCE 11/18/20 09:45 11/18/20 09:46 DC 11/18/20 09:53 5 ML Lidocaine HCl (Xylocaine 2% Topical 5gm Tube) 5 makenna STK-MED ONCE 11/16/20 12:00 11/17/20 15:35 DC Lidocaine HCl (Xylocaine-Mpf 1% 2ml Vial) 2 ml 1X ONCE 11/17/20 12:00 11/17/20 12:07 DC Linezolid/Dextrose 300 ml @ 300 mls/hr Q12HR 11/17/20 18:00 11/21/20 10:59 300 MLS/HR Meropenem 1 gm/ Sodium Chloride 100 ml @ 200 mls/hr Q12HR 11/18/20 21:00 11/21/20 11:00 200 MLS/HR Meropenem 500 mg/ Sodium Chloride 50 ml @ 100 mls/hr DAILY 11/19/20 09:00 11/18/20 16:16 DC Metoprolol Tartrate (Lopressor) 50 mg BID 11/16/20 09:15 11/17/20 12:56 DC 11/17/20 09:24 50 MG Metronidazole 100 ml @ 100 mls/hr Q12HR 11/15/20 21:00 11/17/20 11:51 DC 11/17/20 08:41 100 MLS/HR Micafungin Sodium 100 mg/Dextrose 100 ml @ 100 mls/hr Q24H 11/17/20 12:30 11/21/20 12:21 100 MLS/HR Midazolam HCl 100 ml @ 0 mls/hr CONT PRN 11/17/20 14:00 11/21/20 06:47 7 MLS/HR Morphine Sulfate (Morphine Sulfate) 4 mg PRN Q1HR PRN 11/17/20 14:00 Norepinephrine Bitartrate 32 mg/ Dextrose 250 ml @ 3.703 mls/ hr CONT PRN 11/17/20 13:30 11/18/20 03:50 14.813 MLS/HR Norepinephrine Bitartrate 8 mg/ Dextrose 258 ml @ 15.344 mls/ hr CONT PRN 11/17/20 11:15 11/17/20 14:30 DC 11/17/20 11:32 14.8 MLS/HR Ondansetron HCl (Zofran) 4 mg PRN Q6HRS PRN 11/15/20 16:15 Pantoprazole Sodium (PROTONIX VIAL for IV PUSH) 40 mg DAILYAC 11/18/20 07:30 11/21/20 07:30 40 MG Pantoprazole Sodium (Protonix) 40 mg DAILYAC 11/16/20 07:30 11/17/20 14:53 DC 11/17/20 08:36 40 MG Phenylephrine HCl 50 mg/Sodium Chloride 255 ml @ 12.133 mls/ hr CONT PRN 11/17/20 13:30 Piperacillin Sod/ Tazobactam Sod 3.375 gm/Sodium Chloride 50 ml @ 100 mls/hr 1X ONCE 11/15/20 13:00 11/15/20 13:29 DC 11/15/20 13:05 100 MLS/HR Potassium Chloride 15 meq/ Bicarbonate Dialysis Soln w/ out KCl 5,007.5 ml @ 1,250 mls/ hr Q4H1M 11/18/20 11:00 11/21/20 14:27 1,250 MLS/HR Potassium Chloride/Water 100 ml @ 100 mls/hr Q1H 11/20/20 19:00 11/20/20 20:59 DC 11/20/20 20:15 100 MLS/HR Potassium Chloride (Klor-Con) 60 meq 1X ONCE 11/16/20 14:00 11/16/20 14:01 DC 11/16/20 14:06 60 MEQ Prothrombin Complex Concent (Human) 2000 unit/ Miscellaneous 80 ml @ 160 mls/hr 1X ONCE 11/18/20 14:30 11/18/20 14:59 DC 11/18/20 14:48 160 MLS/HR Ringer's Solution 1,000 ml @ 1,000 mls/hr Q1H ONCE 11/17/20 14:00 11/17/20 14:59 DC 11/17/20 15:45 1,000 MLS/HR Sennosides (Senna) 17.2 mg PRN BID PRN 11/15/20 16:15 Sodium Bicarbonate 150 meq/Dextrose 1,150 ml @ 125 mls/hr Q9H12M ONCE 11/17/20 11:30 11/17/20 20:41 DC 11/17/20 11:26 125 MLS/HR Sodium Bicarbonate (Sodium Bicarb Adult 8.4% Syr) 100 meq 1X ONCE 11/17/20 14:15 11/17/20 14:16 DC 11/17/20 14:15 100 MEQ Sodium Chloride 1,000 ml @ 0 mls/hr Q0M 11/19/20 15:30 Sodium Phosphate 20 mmol/Sodium Chloride 256.6667 ml @ 64.167 m... 1X ONCE 11/21/20 01:00 11/21/20 04:59 DC 11/21/20 00:54 64.167 MLS/HR Succinylcholine Chloride (Anectine) 100 mg 1X ONCE 11/17/20 14:15 11/17/20 14:16 DC 11/17/20 14:15 100 MG Thiamine Mononitrate (Vitamin B-1) 300 mg TID 11/17/20 14:00 11/21/20 14:23 300 MG Thiamine HCl 300 mg/Dextrose 53 ml @ 102 mls/hr Q8HRS 11/15/20 22:00 11/17/20 09:46 DC 11/17/20 06:17 102 MLS/HR Tranexamic Acid 50 ml @ 50 mls/hr Q12HR 11/18/20 13:00 11/21/20 09:00 50 MLS/HR Vancomycin HCl (Vanco Per Pharmacy) 1 each PRN DAILY PRN 11/15/20 16:15 11/16/20 11:05 DC Vancomycin HCl 2 gm/Sodium Chloride 500 ml @ 250 mls/hr 1X ONCE 11/15/20 13:00 11/15/20 14:59 DC 11/15/20 13:37 250 MLS/HR Vasopressin 20 unit/Dextrose 101 ml @ 12 mls/hr CONT PRN 11/17/20 13:30 UNV Vecuronium Parshall (Norcuron Bolus) 6 mg PRN Q2HR PRN 11/17/20 20:00 11/17/20 22:11 6 MG Lab Laboratory Tests Test 11/20/20 17:45 11/21/20 00:03 11/21/20 06:04 11/21/20 07:52 Prothrombin Time 19.4 SEC (11.7-14.0) 17.8 SEC (11.7-14.0) Prothromb Time International Ratio 1.7 (0.8-1.1) 1.5 (0.8-1.1) Sodium Level 135 mmol/L (136-145) 134 mmol/L (136-145) 136 mmol/L (136-145) Potassium Level 3.3 mmol/L (3.5-5.1) 3.6 mmol/L (3.5-5.1) 3.5 mmol/L (3.5-5.1) Chloride Level 101 mmol/L (98-107) 101 mmol/L (98-107) 103 mmol/L (98-107) Carbon Dioxide Level 26 mmol/L (21-32) 25 mmol/L (21-32) 24 mmol/L (21-32) Anion Gap 8 (6-14) 8 (6-14) 9 (6-14) Blood Urea Nitrogen 12 mg/dL (7-20) 11 mg/dL (7-20) 12 mg/dL (7-20) Creatinine 0.8 mg/dL (0.6-1.0) 0.8 mg/dL (0.6-1.0) 0.7 mg/dL (0.6-1.0) Estimated GFR (Cockcroft-Gault) 96.6 96.6 112.7 BUN/Creatinine Ratio 15 (6-20) 14 (6-20) 17 (6-20) Glucose Level 103 mg/dL (70-99) 118 mg/dL (70-99) 104 mg/dL (70-99) Calcium Level 8.0 mg/dL (8.5-10.1) 8.2 mg/dL (8.5-10.1) 8.2 mg/dL (8.5-10.1) Phosphorus Level 2.2 mg/dL (2.6-4.7) 1.8 mg/dL (2.6-4.7) 3.1 mg/dL (2.6-4.7) Magnesium Level 2.5 mg/dL (1.8-2.4) 2.6 mg/dL (1.8-2.4) 2.5 mg/dL (1.8-2.4) Total Bilirubin 5.4 mg/dL (0.2-1.0) 5.5 mg/dL (0.2-1.0) 5.5 mg/dL (0.2-1.0) Aspartate Amino Transf (AST/SGOT) 164 U/L (15-37) 159 U/L (15-37) 149 U/L (15-37) Alanine Aminotransferase (ALT/SGPT) 103 U/L (14-59) 105 U/L (14-59) 103 U/L (14-59) Alkaline Phosphatase 166 U/L (46-116) 122 U/L (46-116) 127 U/L (46-116) Total Protein 6.0 g/dL (6.4-8.2) 6.2 g/dL (6.4-8.2) 6.5 g/dL (6.4-8.2) Albumin 2.4 g/dL (3.4-5.0) 2.5 g/dL (3.4-5.0) 2.6 g/dL (3.4-5.0) Albumin/Globulin Ratio 0.7 (1.0-1.7) 0.7 (1.0-1.7) 0.7 (1.0-1.7) White Blood Count 17.6 x10^3/uL (4.0-11.0) Red Blood Count 4.08 x10^6/uL (3.50-5.40) Hemoglobin 7.9 g/dL (12.0-15.5) Hematocrit 26.3 % (36.0-47.0) Mean Corpuscular Volume 65 fL (79-100) Mean Corpuscular Hemoglobin 19 pg (25-35) Mean Corpuscular Hemoglobin Concent 30 g/dL (31-37) Red Cell Distribution Width 25.7 % (11.5-14.5) Platelet Count 96 x10^3/uL (140-400) O2 Saturation 99 % (92-99) Arterial Blood pH 7.52 (7.35-7.45) Arterial Blood pCO2 at Patient Temp 30 mmHg (35-46) Arterial Blood pO2 at Patient Temp 127 mmHg (75-108) Arterial Blood HCO3 24 mmol/L (21-28) Arterial Blood Base Excess 1 mmol/L (-3-3) FiO2 35 vent Results All relevant outside records, renal labs, imaging studies, telemetry/EKG's were reviewed. Justicifation of Admission Dx: Justifications for Admission: Justification of Admission Dx: Yes CHF: Cardiac Arrhythmias FRANCO SETHI MD Nov 21, 2020 14:33
--- NOTE | 2020-11-21 15:59 | NUR ---
SS following up with discharge planning. SS reviewed pt chart and discussed with pt RN. Pt is currently on the vent at 35%. Per RN, pt having SAMMY and heart cath tomorrow. Possible need for transfer to . Pt currently on CRRT. Not stable. SS will continue to follow for discharge planning.
[2020-11-21 17:00] LABS: BASO # 0.1 x10^3/uL (0.0-0.2); BASO % 1 % (0-3); EOS % 0 % (0-3); HEMATOCRIT 25.9 % (36.0-47.0); LYMPH # 1.4 x10^3/uL (1.0-4.8); LYMPH % 8 % (24-48); MEAN CORPUSCULAR HEMOGLOBIN 20 pg (25-35); MEAN CORPUSCULAR HGB CONC 31 g/dL (31-37); MEAN CORPUSCULAR VOLUME 63 fL (79-100); MONO % 6 % (0-9); NEUT # 14.9 x10^3/uL (1.8-7.7); NEUT % 86 % (31-73); PLATELET COUNT 93 x10^3/uL (140-400); RED CELL DISTRIBUTION WIDTH 25.8 % (11.5-14.5); WHITE BLOOD COUNT 17.4 x10^3/uL (4.0-11.0)
[2020-11-21] MEDS: fentaNYL HIGH DOSE PCA 55 ML IV PRN (17:07)
[2020-11-21 17:23] LABS: CALCIUM 8.5 mg/dL (8.5-10.1); CREATININE 0.8 mg/dL (0.6-1.0); GFR 96.6; MAGNESIUM 2.6 mg/dL (1.8-2.4); PHOSPHORUS 2.1 mg/dL (2.6-4.7); POTASSIUM 3.5 mmol/L (3.5-5.1)
[2020-11-21] MEDS ORDERED: SODIUM PHOSPHATE 15 MMOL in IV NORMAL SALINE 250ML 250 ML IV ONE (18:30)
[2020-11-21] MEDS: DAPTOmycin (GENERIC) IVPB 500 MG in IV NORMAL SALINE 50ML 50 ML IV SCH (20:46)
[2020-11-21 23:45] LABS: BASO % 0 % (0-3); EOS % 0 % (0-3); HEMATOCRIT 25.7 % (36.0-47.0); HEMOGLOBIN 7.9 g/dL (12.0-15.5); LYMPH # 1.1 x10^3/uL (1.0-4.8); LYMPH % 7 % (24-48); MEAN CORPUSCULAR HEMOGLOBIN 20 pg (25-35); MEAN CORPUSCULAR HGB CONC 31 g/dL (31-37); MEAN CORPUSCULAR VOLUME 64 fL (79-100); MONO # 0.8 x10^3/uL (0.0-1.1); MONO % 5 % (0-9); NEUT # 13.7 x10^3/uL (1.8-7.7); NEUT % 87 % (31-73); PLATELET COUNT 79 x10^3/uL (140-400); RED BLOOD COUNT 4.04 x10^6/uL (3.50-5.40); RED CELL DISTRIBUTION WIDTH 25.7 % (11.5-14.5); WHITE BLOOD COUNT 15.7 x10^3/uL (4.0-11.0)
[2020-11-21 23:53] LABS: CALCIUM 8.2 mg/dL (8.5-10.1); CREATININE 0.9 mg/dL (0.6-1.0); GFR 84.3; MAGNESIUM 2.5 mg/dL (1.8-2.4); PHOSPHORUS 2.6 mg/dL (2.6-4.7); POTASSIUM 3.3 mmol/L (3.5-5.1)
[2020-11-22] VITALS (11 sets, daily range): BP systolic 116–136; BP diastolic 68–83
[2020-11-22] MEDS ORDERED: POTASSIUM CHLORIDE 20MEQ 100 ML IV ONE ×2 (01:00→10:00)
[2020-11-22] MEDS: POTASSIUM CHLORIDE 15 MEQ in DIALYSIS SOLUTION BGK 0/2.5 5,000 ML IV SCH ×6 (02:58→07:35)
[2020-11-22 05:24] LABS: CALCIUM 8.5 mg/dL (8.5-10.1); CREATININE 0.8 mg/dL (0.6-1.0); GFR 96.6; MAGNESIUM 2.6 mg/dL (1.8-2.4); PHOSPHORUS 2.1 mg/dL (2.6-4.7); POTASSIUM 3.5 mmol/L (3.5-5.1)
[2020-11-22] MEDS: HYDROCORTISONE SOD SUCC/PF 100 MG/2 ML VIAL. IVP SCH ×3 (05:52→22:09)
[2020-11-22] MEDS: PANTOPRAZOLE IV PUSH 40 MG VIAL. IVP SCH (07:35)
[2020-11-22 08:39] LABS: BASE EXCESS ABG 0 mmol/L (-3-3); HCO3 ABG 22 mmol/L (21-28); PCO2 ABG 26 mmHg (35-46); PO2 ABG 123 mmHg (75-108); SAT O2 ABG 99 % (92-99)
[2020-11-22] MEDS: CITALOPRAM 20 MG TABLET. PO SCH (09:00)
[2020-11-22] MEDS: FLUTICASONE 50MCG/NASAL SPRAY 16GM BOTTLE. NS SCH (09:00)
[2020-11-22] MEDS: GABAPENTIN 300 MG CAPSULE. PO SCH ×2 (09:00→22:09)
[2020-11-22] MEDS: TRANEXAMIC ACID in NS IVPB 50 ML INJ SCH ×2 (09:00→22:10)
[2020-11-22] MEDS ORDERED: SODIUM PHOSPHATE 15 MMOL in IV NS 100 ML IV ONE (10:00)
[2020-11-22 10:15] LABS: FIO2 ABG 35% VENT
[2020-11-22 11:01] LABS: BASO % 0 % (0-3); EOS % 0 % (0-3); HEMATOCRIT 26.2 % (36.0-47.0); HEMOGLOBIN 7.9 g/dL (12.0-15.5); LYMPH # 1.6 x10^3/uL (1.0-4.8); LYMPH % 10 % (24-48); MEAN CORPUSCULAR HEMOGLOBIN 19 pg (25-35); MEAN CORPUSCULAR HGB CONC 30 g/dL (31-37); MEAN CORPUSCULAR VOLUME 64 fL (79-100); MONO # 0.9 x10^3/uL (0.0-1.1); MONO % 5 % (0-9); NEUT # 13.3 x10^3/uL (1.8-7.7); NEUT % 84 % (31-73); PLATELET COUNT 85 x10^3/uL (140-400); RED BLOOD COUNT 4.08 x10^6/uL (3.50-5.40); RED CELL DISTRIBUTION WIDTH 25.9 % (11.5-14.5); WHITE BLOOD COUNT 15.9 x10^3/uL (4.0-11.0)
[2020-11-22 11:07] LABS: CALCIUM 8.7 mg/dL (8.5-10.1); CREATININE 0.7 mg/dL (0.6-1.0); GFR 112.7; MAGNESIUM 2.6 mg/dL (1.8-2.4); POTASSIUM 4.2 mmol/L (3.5-5.1)
[2020-11-22 11:10] LABS: PROTHROMBIN TIME PATIENT 17.2 SEC (11.7-14.0)
[2020-11-22] MEDS ORDERED: LIDOCAINE 1% Multi-Dose 20 ML VIAL. ONE (11:33)
[2020-11-22] MEDS ORDERED: IODIXANOL 320 MG/ML 100 ML VIAL. ONE (11:33)
[2020-11-22] MEDS: IPRATRPIUM/ALBUTEROL 0.5/2.5MG 3 ML NEBU. NEB SCH ×3 (11:35→20:09)
[2020-11-22] MEDS: MICAFUNGIN 100 MG in IV DEXTROSE 5% 100ML 100 ML IV SCH (12:00)
[2020-11-22 12:25] LABS: % BANDS 2 % (0-9); % LYMPHS 10 % (24-48); % MONOS 6 % (0-10); % SEGS 82 % (35-66); NUCLEATED RBC 4
[2020-11-22 12:26] LABS: ANISOCYTOSIS MOD; MICROCYTOSIS MOD; OVALOCYTES FEW; PLT ESTIMATE DECREASED (ADEQUATE)
[2020-11-22 12:27] LABS: HYPOCHROMIA MOD
--- NOTE | 2020-11-22 12:51 | PDOC ---
Infectious Disease Note Subjective: Subjective Patient intubated /sedated Remains on avril hugger Off pressure support Awaiting cardiac cath and SAMMY Discussed with RN Vital Signs: Vital Signs Vital Signs Date Time Temp Pulse Resp B/P (MAP) Pulse Ox O2 Delivery O2 Flow Rate FiO2 11/22/20 11:29 100 Ventilator 11/22/20 05:00 74 24 128/73 (91) 11/22/20 04:00 96.7 96.7 Physical Exam: PHYSICAL EXAM GENERAL: Intubated/sedated HEENT ETT/OGT tube present Neck Right IJ, left HDC, clean LUNGS: Bibasilar Rales HEART: Irregular. ABDOMEN: Mildly distended hypoactive bowel sounds EXTREMITIES: edema bilaterally. NEUROLOGIC: Intubated right femoral arterial line present DERM mottled skin Medications: Inpatient Meds: Medications reviewed. Labs: Lab Laboratory Tests Test 11/21/20 16:45 11/21/20 23:30 11/22/20 05:00 11/22/20 08:00 White Blood Count 17.4 x10^3/uL (4.0-11.0) 15.7 x10^3/uL (4.0-11.0) Red Blood Count 4.10 x10^6/uL (3.50-5.40) 4.04 x10^6/uL (3.50-5.40) Hemoglobin 8.0 g/dL (12.0-15.5) 7.9 g/dL (12.0-15.5) Hematocrit 25.9 % (36.0-47.0) 25.7 % (36.0-47.0) Mean Corpuscular Volume 63 fL (79-100) 64 fL (79-100) Mean Corpuscular Hemoglobin 20 pg (25-35) 20 pg (25-35) Mean Corpuscular Hemoglobin Concent 31 g/dL (31-37) 31 g/dL (31-37) Red Cell Distribution Width 25.8 % (11.5-14.5) 25.7 % (11.5-14.5) Platelet Count 93 x10^3/uL (140-400) 79 x10^3/uL (140-400) Neutrophils (%) (Auto) 86 % (31-73) 87 % (31-73) Lymphocytes (%) (Auto) 8 % (24-48) 7 % (24-48) Monocytes (%) (Auto) 6 % (0-9) 5 % (0-9) Eosinophils (%) (Auto) 0 % (0-3) 0 % (0-3) Basophils (%) (Auto) 1 % (0-3) 0 % (0-3) Neutrophils # (Auto) 14.9 x10^3/uL (1.8-7.7) 13.7 x10^3/uL (1.8-7.7) Lymphocytes # (Auto) 1.4 x10^3/uL (1.0-4.8) 1.1 x10^3/uL (1.0-4.8) Monocytes # (Auto) 1.0 x10^3/uL (0.0-1.1) 0.8 x10^3/uL (0.0-1.1) Eosinophils # (Auto) 0.0 x10^3/uL (0.0-0.7) 0.0 x10^3/uL (0.0-0.7) Basophils # (Auto) 0.1 x10^3/uL (0.0-0.2) 0.0 x10^3/uL (0.0-0.2) Sodium Level 137 mmol/L (136-145) 136 mmol/L (136-145) 136 mmol/L (136-145) Potassium Level 3.5 mmol/L (3.5-5.1) 3.3 mmol/L (3.5-5.1) 3.5 mmol/L (3.5-5.1) Chloride Level 101 mmol/L (98-107) 100 mmol/L (98-107) 101 mmol/L (98-107) Carbon Dioxide Level 26 mmol/L (21-32) 25 mmol/L (21-32) 24 mmol/L (21-32) Anion Gap 10 (6-14) 11 (6-14) 11 (6-14) Blood Urea Nitrogen 14 mg/dL (7-20) 15 mg/dL (7-20) 14 mg/dL (7-20) Creatinine 0.8 mg/dL (0.6-1.0) 0.9 mg/dL (0.6-1.0) 0.8 mg/dL (0.6-1.0) Estimated GFR (Cockcroft-Gault) 96.6 84.3 96.6 Glucose Level 113 mg/dL (70-99) 157 mg/dL (70-99) 116 mg/dL (70-99) Calcium Level 8.5 mg/dL (8.5-10.1) 8.2 mg/dL (8.5-10.1) 8.5 mg/dL (8.5-10.1) Phosphorus Level 2.1 mg/dL (2.6-4.7) 2.6 mg/dL (2.6-4.7) 2.1 mg/dL (2.6-4.7) Magnesium Level 2.6 mg/dL (1.8-2.4) 2.5 mg/dL (1.8-2.4) 2.6 mg/dL (1.8-2.4) Triglycerides Level 102 mg/dL (0-150) O2 Saturation 99 % (92-99) Arterial Blood pH 7.54 (7.35-7.45) Arterial Blood pCO2 at Patient Temp 26 mmHg (35-46) Arterial Blood pO2 at Patient Temp 123 mmHg (75-108) Arterial Blood HCO3 22 mmol/L (21-28) Arterial Blood Base Excess 0 mmol/L (-3-3) FiO2 35% vent Test 11/22/20 10:35 White Blood Count 15.9 x10^3/uL (4.0-11.0) Red Blood Count 4.08 x10^6/uL (3.50-5.40) Hemoglobin 7.9 g/dL (12.0-15.5) Hematocrit 26.2 % (36.0-47.0) Mean Corpuscular Volume 64 fL (79-100) Mean Corpuscular Hemoglobin 19 pg (25-35) Mean Corpuscular Hemoglobin Concent 30 g/dL (31-37) Red Cell Distribution Width 25.9 % (11.5-14.5) Platelet Count 85 x10^3/uL (140-400) Neutrophils (%) (Auto) 84 % (31-73) Lymphocytes (%) (Auto) 10 % (24-48) Monocytes (%) (Auto) 5 % (0-9) Eosinophils (%) (Auto) 0 % (0-3) Basophils (%) (Auto) 0 % (0-3) Neutrophils # (Auto) 13.3 x10^3/uL (1.8-7.7) Lymphocytes # (Auto) 1.6 x10^3/uL (1.0-4.8) Monocytes # (Auto) 0.9 x10^3/uL (0.0-1.1) Eosinophils # (Auto) 0.0 x10^3/uL (0.0-0.7) Basophils # (Auto) 0.0 x10^3/uL (0.0-0.2) Segmented Neutrophils % 82 % (35-66) Band Neutrophils % 2 % (0-9) Lymphocytes % 10 % (24-48) Monocytes % 6 % (0-10) Nucleated Red Blood Cells 4 Platelet Estimate Decreased (ADEQUATE) Large Platelets Present Hypochromasia Mod Anisocytosis Mod Microcytosis Mod Ovalocytes Few Prothrombin Time 17.2 SEC (11.7-14.0) Prothromb Time International Ratio 1.4 (0.8-1.1) Sodium Level 136 mmol/L (136-145) Potassium Level 4.2 mmol/L (3.5-5.1) Chloride Level 100 mmol/L (98-107) Carbon Dioxide Level 24 mmol/L (21-32) Anion Gap 12 (6-14) Blood Urea Nitrogen 14 mg/dL (7-20) Creatinine 0.7 mg/dL (0.6-1.0) Estimated GFR (Cockcroft-Gault) 112.7 Glucose Level 133 mg/dL (70-99) Calcium Level 8.7 mg/dL (8.5-10.1) Magnesium Level 2.6 mg/dL (1.8-2.4) Objective: Assessment: Patient currently in multiorgan failure 1. Severe sepsis source likely GI 2. Leukocytosis and lactic acidosis. 3. Acute kidney injury with severe metabolic acidosis. 4. Abdominal pain, intermittent nausea.Colitis on CT abdomen, Gen surgery evaluated pt 5. Atrial fibrillation/flutter. 6. Acute on chronic congestive heart failure. 7. Valvular insufficiency. MR, severe TR, hepatic congestion 8. History of PFO closure/ASD repair. 9. Acute respiratory failure status post intubation 10. Pulmonary hypertension. 11. Coagulopathy. Thrombocytopenia 12. Abnormal liver function tests , hyperbilirubinemia 13. COVID-19 negative Plan: Plan of Care Continue Dapto, Merrem, micafungin ,zyvox Monitor CBC closely awaiting RT Cardiac cath and SAMMY Cult remain nonrevealing Gen surgery has evaluated pt Monitor labs and cultures. Continue supportive care. Critically ill Prognosis very poor Discussed with nursing staff MEGAN MEHTA MD Nov 22, 2020 12:51
--- NOTE | 2020-11-22 14:01 | PDOC ---
G I PROGRESS NOTE Reason for Follow-up Anemia/increased LFTS Subjective intubated/no complaints Physical Exam Lungs coarse BS, intubated CV S1 S2 ABD +BS, soft, nontender Review of Relevant I have reviewed the following items josé (where applicable) has been applied. Labs Laboratory Tests Test 11/20/20 17:45 11/21/20 00:03 11/21/20 06:04 11/21/20 07:52 Prothrombin Time 19.4 SEC (11.7-14.0) 17.8 SEC (11.7-14.0) Prothromb Time International Ratio 1.7 (0.8-1.1) 1.5 (0.8-1.1) Sodium Level 135 mmol/L (136-145) 134 mmol/L (136-145) 136 mmol/L (136-145) Potassium Level 3.3 mmol/L (3.5-5.1) 3.6 mmol/L (3.5-5.1) 3.5 mmol/L (3.5-5.1) Chloride Level 101 mmol/L (98-107) 101 mmol/L (98-107) 103 mmol/L (98-107) Carbon Dioxide Level 26 mmol/L (21-32) 25 mmol/L (21-32) 24 mmol/L (21-32) Anion Gap 8 (6-14) 8 (6-14) 9 (6-14) Blood Urea Nitrogen 12 mg/dL (7-20) 11 mg/dL (7-20) 12 mg/dL (7-20) Creatinine 0.8 mg/dL (0.6-1.0) 0.8 mg/dL (0.6-1.0) 0.7 mg/dL (0.6-1.0) Estimated GFR (Cockcroft-Gault) 96.6 96.6 112.7 BUN/Creatinine Ratio 15 (6-20) 14 (6-20) 17 (6-20) Glucose Level 103 mg/dL (70-99) 118 mg/dL (70-99) 104 mg/dL (70-99) Calcium Level 8.0 mg/dL (8.5-10.1) 8.2 mg/dL (8.5-10.1) 8.2 mg/dL (8.5-10.1) Phosphorus Level 2.2 mg/dL (2.6-4.7) 1.8 mg/dL (2.6-4.7) 3.1 mg/dL (2.6-4.7) Magnesium Level 2.5 mg/dL (1.8-2.4) 2.6 mg/dL (1.8-2.4) 2.5 mg/dL (1.8-2.4) Total Bilirubin 5.4 mg/dL (0.2-1.0) 5.5 mg/dL (0.2-1.0) 5.5 mg/dL (0.2-1.0) Aspartate Amino Transf (AST/SGOT) 164 U/L (15-37) 159 U/L (15-37) 149 U/L (15-37) Alanine Aminotransferase (ALT/SGPT) 103 U/L (14-59) 105 U/L (14-59) 103 U/L (14-59) Alkaline Phosphatase 166 U/L (46-116) 122 U/L (46-116) 127 U/L (46-116) Total Protein 6.0 g/dL (6.4-8.2) 6.2 g/dL (6.4-8.2) 6.5 g/dL (6.4-8.2) Albumin 2.4 g/dL (3.4-5.0) 2.5 g/dL (3.4-5.0) 2.6 g/dL (3.4-5.0) Albumin/Globulin Ratio 0.7 (1.0-1.7) 0.7 (1.0-1.7) 0.7 (1.0-1.7) White Blood Count 17.6 x10^3/uL (4.0-11.0) Red Blood Count 4.08 x10^6/uL (3.50-5.40) Hemoglobin 7.9 g/dL (12.0-15.5) Hematocrit 26.3 % (36.0-47.0) Mean Corpuscular Volume 65 fL (79-100) Mean Corpuscular Hemoglobin 19 pg (25-35) Mean Corpuscular Hemoglobin Concent 30 g/dL (31-37) Red Cell Distribution Width 25.7 % (11.5-14.5) Platelet Count 96 x10^3/uL (140-400) O2 Saturation 99 % (92-99) Arterial Blood pH 7.52 (7.35-7.45) Arterial Blood pCO2 at Patient Temp 30 mmHg (35-46) Arterial Blood pO2 at Patient Temp 127 mmHg (75-108) Arterial Blood HCO3 24 mmol/L (21-28) Arterial Blood Base Excess 1 mmol/L (-3-3) FiO2 35 vent Test 11/21/20 16:45 11/21/20 23:30 11/22/20 05:00 11/22/20 08:00 White Blood Count 17.4 x10^3/uL (4.0-11.0) 15.7 x10^3/uL (4.0-11.0) Red Blood Count 4.10 x10^6/uL (3.50-5.40) 4.04 x10^6/uL (3.50-5.40) Hemoglobin 8.0 g/dL (12.0-15.5) 7.9 g/dL (12.0-15.5) Hematocrit 25.9 % (36.0-47.0) 25.7 % (36.0-47.0) Mean Corpuscular Volume 63 fL (79-100) 64 fL (79-100) Mean Corpuscular Hemoglobin 20 pg (25-35) 20 pg (25-35) Mean Corpuscular Hemoglobin Concent 31 g/dL (31-37) 31 g/dL (31-37) Red Cell Distribution Width 25.8 % (11.5-14.5) 25.7 % (11.5-14.5) Platelet Count 93 x10^3/uL (140-400) 79 x10^3/uL (140-400) Neutrophils (%) (Auto) 86 % (31-73) 87 % (31-73) Lymphocytes (%) (Auto) 8 % (24-48) 7 % (24-48) Monocytes (%) (Auto) 6 % (0-9) 5 % (0-9) Eosinophils (%) (Auto) 0 % (0-3) 0 % (0-3) Basophils (%) (Auto) 1 % (0-3) 0 % (0-3) Neutrophils # (Auto) 14.9 x10^3/uL (1.8-7.7) 13.7 x10^3/uL (1.8-7.7) Lymphocytes # (Auto) 1.4 x10^3/uL (1.0-4.8) 1.1 x10^3/uL (1.0-4.8) Monocytes # (Auto) 1.0 x10^3/uL (0.0-1.1) 0.8 x10^3/uL (0.0-1.1) Eosinophils # (Auto) 0.0 x10^3/uL (0.0-0.7) 0.0 x10^3/uL (0.0-0.7) Basophils # (Auto) 0.1 x10^3/uL (0.0-0.2) 0.0 x10^3/uL (0.0-0.2) Sodium Level 137 mmol/L (136-145) 136 mmol/L (136-145) 136 mmol/L (136-145) Potassium Level 3.5 mmol/L (3.5-5.1) 3.3 mmol/L (3.5-5.1) 3.5 mmol/L (3.5-5.1) Chloride Level 101 mmol/L (98-107) 100 mmol/L (98-107) 101 mmol/L (98-107) Carbon Dioxide Level 26 mmol/L (21-32) 25 mmol/L (21-32) 24 mmol/L (21-32) Anion Gap 10 (6-14) 11 (6-14) 11 (6-14) Blood Urea Nitrogen 14 mg/dL (7-20) 15 mg/dL (7-20) 14 mg/dL (7-20) Creatinine 0.8 mg/dL (0.6-1.0) 0.9 mg/dL (0.6-1.0) 0.8 mg/dL (0.6-1.0) Estimated GFR (Cockcroft-Gault) 96.6 84.3 96.6 Glucose Level 113 mg/dL (70-99) 157 mg/dL (70-99) 116 mg/dL (70-99) Calcium Level 8.5 mg/dL (8.5-10.1) 8.2 mg/dL (8.5-10.1) 8.5 mg/dL (8.5-10.1) Phosphorus Level 2.1 mg/dL (2.6-4.7) 2.6 mg/dL (2.6-4.7) 2.1 mg/dL (2.6-4.7) Magnesium Level 2.6 mg/dL (1.8-2.4) 2.5 mg/dL (1.8-2.4) 2.6 mg/dL (1.8-2.4) Triglycerides Level 102 mg/dL (0-150) O2 Saturation 99 % (92-99) Arterial Blood pH 7.54 (7.35-7.45) Arterial Blood pCO2 at Patient Temp 26 mmHg (35-46) Arterial Blood pO2 at Patient Temp 123 mmHg (75-108) Arterial Blood HCO3 22 mmol/L (21-28) Arterial Blood Base Excess 0 mmol/L (-3-3) FiO2 35% vent Test 11/22/20 10:35 White Blood Count 15.9 x10^3/uL (4.0-11.0) Red Blood Count 4.08 x10^6/uL (3.50-5.40) Hemoglobin 7.9 g/dL (12.0-15.5) Hematocrit 26.2 % (36.0-47.0) Mean Corpuscular Volume 64 fL (79-100) Mean Corpuscular Hemoglobin 19 pg (25-35) Mean Corpuscular Hemoglobin Concent 30 g/dL (31-37) Red Cell Distribution Width 25.9 % (11.5-14.5) Platelet Count 85 x10^3/uL (140-400) Neutrophils (%) (Auto) 84 % (31-73) Lymphocytes (%) (Auto) 10 % (24-48) Monocytes (%) (Auto) 5 % (0-9) Eosinophils (%) (Auto) 0 % (0-3) Basophils (%) (Auto) 0 % (0-3) Neutrophils # (Auto) 13.3 x10^3/uL (1.8-7.7) Lymphocytes # (Auto) 1.6 x10^3/uL (1.0-4.8) Monocytes # (Auto) 0.9 x10^3/uL (0.0-1.1) Eosinophils # (Auto) 0.0 x10^3/uL (0.0-0.7) Basophils # (Auto) 0.0 x10^3/uL (0.0-0.2) Segmented Neutrophils % 82 % (35-66) Band Neutrophils % 2 % (0-9) Lymphocytes % 10 % (24-48) Monocytes % 6 % (0-10) Nucleated Red Blood Cells 4 Platelet Estimate Decreased (ADEQUATE) Large Platelets Present Hypochromasia Mod Anisocytosis Mod Microcytosis Mod Ovalocytes Few Prothrombin Time 17.2 SEC (11.7-14.0) Prothromb Time International Ratio 1.4 (0.8-1.1) Sodium Level 136 mmol/L (136-145) Potassium Level 4.2 mmol/L (3.5-5.1) Chloride Level 100 mmol/L (98-107) Carbon Dioxide Level 24 mmol/L (21-32) Anion Gap 12 (6-14) Blood Urea Nitrogen 14 mg/dL (7-20) Creatinine 0.7 mg/dL (0.6-1.0) Estimated GFR (Cockcroft-Gault) 112.7 Glucose Level 133 mg/dL (70-99) Calcium Level 8.7 mg/dL (8.5-10.1) Magnesium Level 2.6 mg/dL (1.8-2.4) Laboratory Tests Test 11/21/20 16:45 11/21/20 23:30 11/22/20 05:00 11/22/20 08:00 White Blood Count 17.4 x10^3/uL (4.0-11.0) 15.7 x10^3/uL (4.0-11.0) Red Blood Count 4.10 x10^6/uL (3.50-5.40) 4.04 x10^6/uL (3.50-5.40) Hemoglobin 8.0 g/dL (12.0-15.5) 7.9 g/dL (12.0-15.5) Hematocrit 25.9 % (36.0-47.0) 25.7 % (36.0-47.0) Mean Corpuscular Volume 63 fL (79-100) 64 fL (79-100) Mean Corpuscular Hemoglobin 20 pg (25-35) 20 pg (25-35) Mean Corpuscular Hemoglobin Concent 31 g/dL (31-37) 31 g/dL (31-37) Red Cell Distribution Width 25.8 % (11.5-14.5) 25.7 % (11.5-14.5) Platelet Count 93 x10^3/uL (140-400) 79 x10^3/uL (140-400) Neutrophils (%) (Auto) 86 % (31-73) 87 % (31-73) Lymphocytes (%) (Auto) 8 % (24-48) 7 % (24-48) Monocytes (%) (Auto) 6 % (0-9) 5 % (0-9) Eosinophils (%) (Auto) 0 % (0-3) 0 % (0-3) Basophils (%) (Auto) 1 % (0-3) 0 % (0-3) Neutrophils # (Auto) 14.9 x10^3/uL (1.8-7.7) 13.7 x10^3/uL (1.8-7.7) Lymphocytes # (Auto) 1.4 x10^3/uL (1.0-4.8) 1.1 x10^3/uL (1.0-4.8) Monocytes # (Auto) 1.0 x10^3/uL (0.0-1.1) 0.8 x10^3/uL (0.0-1.1) Eosinophils # (Auto) 0.0 x10^3/uL (0.0-0.7) 0.0 x10^3/uL (0.0-0.7) Basophils # (Auto) 0.1 x10^3/uL (0.0-0.2) 0.0 x10^3/uL (0.0-0.2) Sodium Level 137 mmol/L (136-145) 136 mmol/L (136-145) 136 mmol/L (136-145) Potassium Level 3.5 mmol/L (3.5-5.1) 3.3 mmol/L (3.5-5.1) 3.5 mmol/L (3.5-5.1) Chloride Level 101 mmol/L (98-107) 100 mmol/L (98-107) 101 mmol/L (98-107) Carbon Dioxide Level 26 mmol/L (21-32) 25 mmol/L (21-32) 24 mmol/L (21-32) Anion Gap 10 (6-14) 11 (6-14) 11 (6-14) Blood Urea Nitrogen 14 mg/dL (7-20) 15 mg/dL (7-20) 14 mg/dL (7-20) Creatinine 0.8 mg/dL (0.6-1.0) 0.9 mg/dL (0.6-1.0) 0.8 mg/dL (0.6-1.0) Estimated GFR (Cockcroft-Gault) 96.6 84.3 96.6 Glucose Level 113 mg/dL (70-99) 157 mg/dL (70-99) 116 mg/dL (70-99) Calcium Level 8.5 mg/dL (8.5-10.1) 8.2 mg/dL (8.5-10.1) 8.5 mg/dL (8.5-10.1) Phosphorus Level 2.1 mg/dL (2.6-4.7) 2.6 mg/dL (2.6-4.7) 2.1 mg/dL (2.6-4.7) Magnesium Level 2.6 mg/dL (1.8-2.4) 2.5 mg/dL (1.8-2.4) 2.6 mg/dL (1.8-2.4) Triglycerides Level 102 mg/dL (0-150) O2 Saturation 99 % (92-99) Arterial Blood pH 7.54 (7.35-7.45) Arterial Blood pCO2 at Patient Temp 26 mmHg (35-46) Arterial Blood pO2 at Patient Temp 123 mmHg (75-108) Arterial Blood HCO3 22 mmol/L (21-28) Arterial Blood Base Excess 0 mmol/L (-3-3) FiO2 35% vent Test 11/22/20 10:35 White Blood Count 15.9 x10^3/uL (4.0-11.0) Red Blood Count 4.08 x10^6/uL (3.50-5.40) Hemoglobin 7.9 g/dL (12.0-15.5) Hematocrit 26.2 % (36.0-47.0) Mean Corpuscular Volume 64 fL (79-100) Mean Corpuscular Hemoglobin 19 pg (25-35) Mean Corpuscular Hemoglobin Concent 30 g/dL (31-37) Red Cell Distribution Width 25.9 % (11.5-14.5) Platelet Count 85 x10^3/uL (140-400) Neutrophils (%) (Auto) 84 % (31-73) Lymphocytes (%) (Auto) 10 % (24-48) Monocytes (%) (Auto) 5 % (0-9) Eosinophils (%) (Auto) 0 % (0-3) Basophils (%) (Auto) 0 % (0-3) Neutrophils # (Auto) 13.3 x10^3/uL (1.8-7.7) Lymphocytes # (Auto) 1.6 x10^3/uL (1.0-4.8) Monocytes # (Auto) 0.9 x10^3/uL (0.0-1.1) Eosinophils # (Auto) 0.0 x10^3/uL (0.0-0.7) Basophils # (Auto) 0.0 x10^3/uL (0.0-0.2) Segmented Neutrophils % 82 % (35-66) Band Neutrophils % 2 % (0-9) Lymphocytes % 10 % (24-48) Monocytes % 6 % (0-10) Nucleated Red Blood Cells 4 Platelet Estimate Decreased (ADEQUATE) Large Platelets Present Hypochromasia Mod Anisocytosis Mod Microcytosis Mod Ovalocytes Few Prothrombin Time 17.2 SEC (11.7-14.0) Prothromb Time International Ratio 1.4 (0.8-1.1) Sodium Level 136 mmol/L (136-145) Potassium Level 4.2 mmol/L (3.5-5.1) Chloride Level 100 mmol/L (98-107) Carbon Dioxide Level 24 mmol/L (21-32) Anion Gap 12 (6-14) Blood Urea Nitrogen 14 mg/dL (7-20) Creatinine 0.7 mg/dL (0.6-1.0) Estimated GFR (Cockcroft-Gault) 112.7 Glucose Level 133 mg/dL (70-99) Calcium Level 8.7 mg/dL (8.5-10.1) Magnesium Level 2.6 mg/dL (1.8-2.4) Microbiology 2/11/21 Blood Culture - Final, Complete NO GROWTH AFTER 5 DAYS 11/15/20 Urine Culture - Final, Complete Medications Current Medications Furosemide (Lasix) 40 mg 1X ONCE IVP Last administered on 11/15/20at 11:16; Start 11/15/20 at 10:15; Stop 11/15/20 at 10:22; Status DC Vancomycin HCl 2 gm/Sodium Chloride 500 ml @ 250 mls/hr 1X ONCE IV Last administered on 11/15/20at 13:37; Start 11/15/20 at 13:00; Stop 11/15/20 at 14:59; Status DC Piperacillin Sod/ Tazobactam Sod 3.375 gm/Sodium Chloride 50 ml @ 100 mls/hr 1X ONCE IV Last administered on 11/15/20at 13:05; Start 11/15/20 at 13:00; Stop 11/15/20 at 13:29; Status DC Dextrose (Dextrose 50%-Water Syringe) 25 gm STK-MED ONCE IV ; Start 11/15/20 at 12:27; Stop 11/15/20 at 12:27; Status DC Dextrose (Dextrose 50%-Water Syringe) 25 gm 1X ONCE IV Last administered on 11/15/20at 12:35; Start 11/15/20 at 12:45; Stop 11/15/20 at 12:46; Status DC Ondansetron HCl (Zofran) 4 mg PRN Q8HRS PRN IV NAUSEA/VOMITING; Start 11/15/20 at 13:00; Stop 11/15/20 at 18:28; Status DC Fentanyl Citrate (Fentanyl 2ml Vial) 50 mcg PRN Q1HR PRN IV PAIN; Start 11/15/20 at 13:00; Stop 11/16/20 at 12:59; Status DC Acetaminophen (Tylenol) 650 mg PRN Q4HRS PRN PO FEVER > 100.3'F; Start 11/15/20 at 13:00; Stop 11/15/20 at 18:29; Status DC Dextrose/Sodium Chloride 1,000 ml @ 50 mls/hr Q20H IV Last administered on 11/17/20at 09:28; Start 11/15/20 at 16:00; Stop 11/19/20 at 17:06; Status DC Sodium Bicarbonate (Sodium Bicarb Adult 8.4% Syr) 100 meq 1X ONCE IV Last administered on 11/15/20at 16:43; Start 11/15/20 at 15:30; Stop 11/15/20 at 15:31; Status DC Vancomycin HCl (Vanco Per Pharmacy) 1 each PRN DAILY PRN MC SEE COMMENTS; Start 11/15/20 at 16:15; Stop 11/16/20 at 11:05; Status DC Cefepime HCl (Maxipime) 2 gm Q24H IVP Last administered on 11/16/20at 16:30; Start 11/15/20 at 17:00; Stop 11/17/20 at 11:51; Status DC Sennosides (Senna) 17.2 mg PRN BID PRN PO CONSTIPATION; Start 11/15/20 at 16:15 Docusate Sodium (Colace) 100 mg PRN DAILY PRN PO HARD STOOLS; Start 11/15/20 at 16:15 Ondansetron HCl (Zofran) 4 mg PRN Q6HRS PRN IVP NAUSEA/VOMITING; Start 11/15/20 at 16:15 Dextrose (Dextrose 50%-Water Syringe) 12.5 gm PRN Q15MIN PRN IV SEE COMMENTS; Start 11/15/20 at 16:15 Acetaminophen (Tylenol) 650 mg PRN Q4HRS PRN PO TEMP OVER 100.4F OR MILD PAIN; Start 11/15/20 at 16:15 Heparin Sodium (Porcine) (Heparin Sodium) 5,000 unit Q12HR SQ ; Start 11/15/20 at 21:00; Stop 11/15/20 at 16:17; Status DC Amiodarone HCl (Cordarone) 200 mg DAILY PO ; Start 11/16/20 at 09:00; Stop 11/15/20 at 16:38; Status DC Aspirin (Tatianna Aspirin) 325 mg DAILY PO ; Start 11/16/20 at 09:00; Stop 11/15/20 at 16:38; Status DC Fluticasone Propionate (Flonase) 2 spray DAILY NS Last administered on 11/17/20at 08:37; Start 11/16/20 at 09:00 Gabapentin (Neurontin) 600 mg BID PO Last administered on 11/21/20at 20:45; Start 11/15/20 at 21:00 Metoprolol Tartrate (Lopressor) 25 mg BID PO Last administered on 11/15/20at 21:28; Start 11/15/20 at 21:00; Stop 11/16/20 at 09:08; Status DC Citalopram Hydrobromide (CeleXA) 40 mg DAILY PO Last administered on 11/21/20at 10:59; Start 11/16/20 at 09:00 Pantoprazole Sodium (Protonix) 40 mg DAILYAC PO Last administered on 11/17/20at 08:36; Start 11/16/20 at 07:30; Stop 11/17/20 at 14:53; Status DC Thiamine Mononitrate (Vitamin B-1) 300 mg DAILY PO ; Start 11/15/20 at 16:30; Stop 11/15/20 at 16:22; Status DC Thiamine HCl 300 mg/Dextrose 53 ml @ 102 mls/hr Q8HRS IV Last administered on 11/17/20at 06:17; Start 11/15/20 at 22:00; Stop 11/17/20 at 09:46; Status DC Metronidazole 100 ml @ 100 mls/hr Q12HR IV Last administered on 11/17/20at 08:41; Start 11/15/20 at 21:00; Stop 11/17/20 at 11:51; Status DC Metoprolol Tartrate (Lopressor) 50 mg BID PO Last administered on 11/17/20at 09:24; Start 11/16/20 at 09:15; Stop 11/17/20 at 12:56; Status DC Furosemide (Lasix) 40 mg 1X ONCE IVP Last administered on 11/16/20at 14:08; Start 11/16/20 at 14:00; Stop 11/16/20 at 14:01; Status DC Potassium Chloride (Klor-Con) 60 meq 1X ONCE PO Last administered on 11/16/20at 14:06; Start 11/16/20 at 14:00; Stop 11/16/20 at 14:01; Status DC Calcium Carbonate/ Glycine (Tums) 500 mg PRN Q4HRS PRN PO MILD INDIGESTION; Start 11/16/20 at 21:15; Stop 11/18/20 at 09:38; Status DC Calcium Carbonate/ Glycine (Tums) 1,000 mg PRN Q4HRS PRN PO SEVERE INDIGESTION Last administered on 11/16/20at 21:37; Start 11/16/20 at 21:30 Albuterol/ Ipratropium (Duoneb) 3 ml RTQID NEB Last administered on 11/22/20at 11:35; Start 11/17/20 at 09:00 Budesonide (Pulmicort) 0.5 mg RTBID NEB Last administered on 11/21/20at 19:30; Start 11/17/20 at 09:00 Thiamine Mononitrate (Vitamin B-1) 300 mg TID PO Last administered on 11/21/20at 20:45; Start 11/17/20 at 14:00 Sodium Bicarbonate 150 meq/Dextrose 1,150 ml @ 125 mls/hr Q9H12M ONCE IV Last administered on 11/17/20at 11:26; Start 11/17/20 at 11:30; Stop 11/17/20 at 20:41; Status DC Norepinephrine Bitartrate 8 mg/ Dextrose 258 ml @ 15.344 mls/ hr CONT PRN IV PER PROTOCOL Last administered on 11/17/20at 11:32; Start 11/17/20 at 11:15; Stop 11/17/20 at 14:30; Status DC Meropenem 500 mg/ Sodium Chloride 50 ml @ 100 mls/hr Q8HRS IV Last administered on 11/18/20at 06:17; Start 11/17/20 at 12:30; Stop 11/18/20 at 13:01; Status DC Daptomycin 390 mg/ Sodium Chloride 50 ml @ 100 mls/hr Q24H IV Last administere d on 11/18/20at 13:11; Start 11/17/20 at 13:00; Stop 11/18/20 at 14:09; Status DC Micafungin Sodium 100 mg/Dextrose 100 ml @ 100 mls/hr Q24H IV Last administered on 11/21/20at 12:21; Start 11/17/20 at 12:30 Lidocaine HCl (Xylocaine-Mpf 1% 2ml Vial) 2 ml 1X ONCE INJ ; Start 11/17/20 at 12:00; Stop 11/17/20 at 12:07; Status DC Vasopressin 20 unit/Dextrose 101 ml @ 12 mls/hr CONT PRN IV SEE I/O RECORD Last administered on 11/18/20at 22:15; Start 11/17/20 at 13:30 Vasopressin 20 unit/Dextrose 101 ml @ 12 mls/hr CONT PRN IV SEE I/O RECORD; Start 11/17/20 at 13:30; Status UNV Phenylephrine HCl 50 mg/Sodium Chloride 255 ml @ 12.133 mls/ hr CONT PRN IV SEE I/O RECORD; Start 11/17/20 at 13:30 Norepinephrine Bitartrate 32 mg/ Dextrose 250 ml @ 3.703 mls/ hr CONT PRN IV SEE I/O RECORD Last administered on 11/18/20at 03:50; Start 11/17/20 at 13:30 Hydrocortisone Sodium Succinate (Solu-CORTEF) 300 mg 1X ONCE IVP Last administered on 11/17/20at 14:25; Start 11/17/20 at 14:00; Stop 11/17/20 at 14:01; Status DC Hydrocortisone Sodium Succinate (Solu-CORTEF) 100 mg Q8HRS IVP Last administered on 11/22/20at 05:52; Start 11/17/20 at 22:00 Ringer's Solution 1,000 ml @ 200 mls/hr Q5H IV Last administered on 11/19/20at 08:07; Start 11/17/20 at 15:00; Stop 11/19/20 at 15:20; Status DC Ringer's Solution 1,000 ml @ 1,000 mls/hr Q1H ONCE IV Last administered on 11/17/20at 15:45; Start 11/17/20 at 14:00; Stop 11/17/20 at 14:59; Status DC Fentanyl Citrate 30 ml @ 0 mls/hr CONT PRN IV SEE PROTOCOL Last administered on 11/19/20at 16:22; Start 11/17/20 at 14:00; Stop 11/19/20 at 23:00; Status DC Fentanyl Citrate (Fentanyl 2ml Vial) 25 mcg PRN Q1HR PRN IV SEE COMMENTS; Start 11/17/20 at 14:00 Fentanyl Citrate (Fentanyl 2ml Vial) 50 mcg PRN Q1HR PRN IV SEE COMMENTS; Start 11/17/20 at 14:00 Chlorhexidine Gluconate (Peridex) 15 ml BID MM Last administered on 11/19/20at 09:00; Start 11/17/20 at 21:00; Stop 11/19/20 at 20:39; Status DC Morphine Sulfate (Morphine Sulfate) 2 mg PRN Q1HR PRN IV SEE COMMENTS.; Start 11/17/20 at 14:00 Morphine Sulfate (Morphine Sulfate) 4 mg PRN Q1HR PRN IV SEE COMMENTS.; Start 11/17/20 at 14:00 Midazolam HCl 100 ml @ 0 mls/hr CONT PRN IV SEE PROTOCOL Last administered on 11/21/20at 22:24; Start 11/17/20 at 14:00 Succinylcholine Chloride (Anectine) 200 mg STK-MED ONCE .ROUTE ; Start 11/17/20 at 14:00; Stop 11/17/20 at 14:00; Status DC Etomidate (Amidate) 20 mg STK-MED ONCE IV ; Start 11/17/20 at 14:00; Stop 11/17/20 at 14:00; Status DC Sodium Bicarbonate (Sodium Bicarb Adult 8.4% Syr) 50 meq STK-MED ONCE .ROUTE ; Start 11/17/20 at 14:02; Stop 11/17/20 at 14:03; Status DC Sodium Bicarbonate (Sodium Bicarb Adult 8.4% Syr) 100 meq 1X ONCE IV Last administered on 11/17/20at 14:20; Start 11/17/20 at 14:15; Stop 11/17/20 at 14:16; Status DC Etomidate (Amidate) 12 mg 1X ONCE IV Last administered on 11/17/20at 14:15; Start 11/17/20 at 14:15; Stop 11/17/20 at 14:16; Status DC Succinylcholine Chloride (Anectine) 100 mg 1X ONCE IV Last administered on 11/17/20at 14:15; Start 11/17/20 at 14:15; Stop 11/17/20 at 14:16; Status DC Sodium Bicarbonate (Sodium Bicarb Adult 8.4% Syr) 100 meq 1X ONCE IV Last administered on 11/17/20at 14:15; Start 11/17/20 at 14:15; Stop 11/17/20 at 14:16; Status DC Epinephrine HCl 5 mg/Sodium Chloride 255 ml @ 24.266 mls/ hr CONT PRN IV SEE I/O RECORD Last administered on 11/17/20at 19:44; Start 11/17/20 at 14:45; Stop 11/17/20 at 20:00; Status DC Pantoprazole Sodium (PROTONIX VIAL for IV PUSH) 40 mg DAILYAC IVP Last administered on 11/21/20at 07:30; Start 11/18/20 at 07:30 Albumin Human 500 ml @ 125 mls/hr 1X ONCE IV Last administered on 11/17/20at 15:44; Start 11/17/20 at 15:15; Stop 11/17/20 at 19:14; Status DC Digoxin (Lanoxin) 500 mcg 1X ONCE IV Last administered on 11/17/20at 15:43; Start 11/17/20 at 15:30; Stop 11/17/20 at 15:31; Status DC Lidocaine HCl (Xylocaine 2% Topical 5gm Tube) 5 makenna STK-MED ONCE TP ; Start 11/16/20 at 12:00; Stop 11/17/20 at 15:35; Status DC Calcium Gluconate 1000 mg/Sodium Chloride 110 ml @ 220 mls/hr 1X ONCE IV Last administered on 11/17/20at 17:36; Start 11/17/20 at 17:15; Stop 11/17/20 at 17:44; Status DC Linezolid/Dextrose 300 ml @ 300 mls/hr Q12HR IV ; Start 11/17/20 at 21:00; Status Cancel Linezolid/Dextrose 300 ml @ 300 mls/hr Q12HR IV ; Start 11/17/20 at 21:00; Status UNV Linezolid/Dextrose 300 ml @ 300 mls/hr Q12HR IV Last administered on 11/21/20at 21:31; Start 11/17/20 at 18:00 Epinephrine HCl 10 mg/Sodium Chloride 250 ml @ 11.85 mls/ hr CONT PRN IV SEE I/O RECORD Last administered on 11/17/20at 22:09; Start 11/17/20 at 17:30 Vecuronium [place] (Norcuron Bolus) 6 mg PRN Q2HR PRN IV Vent management Last administered on 11/17/20at 22:11; Start 11/17/20 at 20:00 Lidocaine HCl (Buffered Lidocaine 1%) 3 ml STK-MED ONCE .ROUTE ; Start 11/18/20 at 09:21; Stop 11/18/20 at 09:22; Status DC Lidocaine HCl (Buffered Lidocaine 1%) 6 ml 1X ONCE INJ Last administered on 11/18/20at 09:53; Start 11/18/20 at 09:45; Stop 11/18/20 at 09:46; Status DC Potassium Chloride 15 meq/ Bicarbonate Dialysis Soln w/ out KCl 5,007.5 ml @ 1,250 mls/ hr Q4H1M IV Last administered on 11/22/20at 02:58; Start 11/18/20 at 11:00 Potassium Chloride 15 meq/ Bicarbonate Dialysis Soln w/ out KCl 5,007.5 ml @ 1,250 mls/ hr Q4H1M IV Last administered on 11/22/20at 03:00; Start 11/18/20 at 11:00 Potassium Chloride 15 meq/ Bicarbonate Dialysis Soln w/ out KCl 5,007.5 ml @ 1,250 mls/ hr Q4H1M IV Last administered on 11/22/20at 02:59; Start 11/18/20 at 11:00 Tranexamic Acid 50 ml @ 50 mls/hr Q12HR INJ Last administered on 11/21/20at 21:31; Start 11/18/20 at 13:00 Daptomycin 390 mg/ Sodium Chloride 50 ml @ 100 mls/hr Q48H IV ; Start 11/20/20 at 13:00; Stop 11/18/20 at 16:23; Status DC Meropenem 500 mg/ Sodium Chloride 50 ml @ 100 mls/hr DAILY IV ; Start 11/19/20 at 09:00; Stop 11/18/20 at 16:16; Status DC Prothrombin Complex Concent (Human) 2000 unit/ Miscellaneous 80 ml @ 160 mls/hr 1X ONCE IV Last administered on 11/18/20at 14:48; Start 11/18/20 at 14:30; Stop 11/18/20 at 14:59; Status DC Meropenem 1 gm/ Sodium Chloride 100 ml @ 200 mls/hr Q12HR IV Last administered on 11/21/20at 21:22; Start 11/18/20 at 21:00 Daptomycin 500 mg/ Sodium Chloride 50 ml @ 100 mls/hr Q48H IV Last administere d on 11/21/20at 20:46; Start 11/19/20 at 21:00 Sodium Phosphate 20 mmol/Sodium Chloride 256.6667 ml @ 64.167 m... 1X ONCE IV Last administered on 11/19/20at 13:54; Start 11/19/20 at 12:30; Stop 11/19/20 at 16:29; Status DC Sodium Chloride 1,000 ml @ 0 mls/hr Q0M IV ; Start 11/19/20 at 15:30 Fentanyl Citrate 55 ml @ 0 mls/hr CONT PRN PRN IV SEDATION/PAIN CONTROL Last administered on 11/21/20at 17:07; Start 11/19/20 at 21:00 Potassium Chloride/Water 100 ml @ 100 mls/hr 1X ONCE IV Last administered on 11/20/20at 11:38; Start 11/20/20 at 12:00; Stop 11/20/20 at 12:59; Status DC Sodium Phosphate 20 mmol/Sodium Chloride 256.6667 ml @ 64.167 m... 1X ONCE IV Last administered on 11/20/20at 11:46; Start 11/20/20 at 11:15; Stop 11/20/20 at 15:14; Status DC Potassium Chloride/Water 100 ml @ 100 mls/hr Q1H IV Last administered on 11/20/20at 20:15; Start 11/20/20 at 19:00; Stop 11/20/20 at 20:59; Status DC Sodium Phosphate 20 mmol/Sodium Chloride 256.6667 ml @ 64.167 m... 1X ONCE IV Last administered on 11/21/20at 00:54; Start 11/21/20 at 01:00; Stop 11/21/20 at 04:59; Status DC Info (Tpn Per Pharmacy) 1 each PRN DAILY PRN MC SEE COMMENTS; Start 11/21/20 at 11:45; Status UNV Sodium Phosphate 15 mmol/Sodium Chloride 255 ml @ 62.5 mls/hr 1X ONCE IV Last administered on 11/21/20at 18:19; Start 11/21/20 at 18:30; Stop 11/21/20 at 22:34; Status DC Potassium Chloride/Water 100 ml @ 100 mls/hr 1X ONCE IV Last administered on 11/22/20at 00:55; Start 11/22/20 at 01:00; Stop 11/22/20 at 01:59; Status DC Potassium Chloride/Water 100 ml @ 100 mls/hr 1X ONCE IV ; Start 11/22/20 at 10:00; Stop 11/22/20 at 10:59; Status DC Sodium Phosphate 15 mmol/Sodium Chloride 105 ml @ 105 mls/hr 1X ONCE IV ; Start 11/22/20 at 10:00; Stop 11/22/20 at 10:59; Status DC Lidocaine HCl (Lidocaine 1% 20ml Vial) 20 ml STK-MED ONCE .ROUTE ; Start 11/22/20 at 11:33; Stop 11/22/20 at 11:33; Status DC Iodixanol (Visipaque 320) 100 ml STK-MED ONCE .ROUTE ; Start 11/22/20 at 11:33; Stop 11/22/20 at 11:33; Status DC Heparin Sodium/ Sodium Chloride 500 ml @ As Directed STK-MED ONCE .ROUTE ; Start 11/22/20 at 11:33; Stop 11/22/20 at 11:34; Status DC Active Scripts Active Amiodarone Hcl 200 Mg Tablet 200 Mg PO DAILY 30 Days Eliquis (Apixaban) 5 Mg Tablet 5 Mg PO BID 30 Days Doxycycline Hyclate 100 Mg Tablet 100 Mg PO BID 5 Days Klor-Con M20 (Potassium Chloride) 20 Meq Tab.er.prt 20 Meq PO DAILYWBKFT 30 Days Furosemide 40 Mg Tablet 40 Mg PO DAILY 30 Days Reported Omeprazole 20 Mg Capsule.dr 1 Cap PO DAILY Metoprolol Tartrate 25 Mg Tablet 1 Tab PO BID Feosol (Ferrous Sulfate) 325 Mg Tablet 325 Mg PO DAILY Aspirin 325 Mg Tablet 1 Tab PO DAILY Amitriptyline Hcl 50 Mg Tablet 1 Tab PO QHS Ultram (Tramadol Hcl) 50 Mg Tablet 1 Tab PO Q6HRS PRN Dulera 100 Mcg/5 Mcg Inhaler (Mometasone/Formoterol) 13 Gm Hfa.aer.ad 2 Puff IH BID Lidoderm (Lidocaine) 700 Mg Adh..patch 1 Patch TP DAILY PRN Neurontin (Gabapentin) 300 Mg Capsule 2 Cap PO BID Flonase (Fluticasone Propionate) 16 Gm Landis.susp 2 Landis NS DAILY Cyclobenzaprine Hcl 10 Mg Tablet 1 Tab PO TID PRN Celexa (Citalopram Hydrobromide) 40 Mg Tablet 1 Tab PO DAILY Cetirizine Hcl 10 Mg Tablet 1 Tab PO DAILY Proair Hfa Inhaler (Albuterol Sulfate) 8.5 Gm Hfa.aer.ad 2 Puff IH PRN Q4-6HRS Vitals/I & O Vital Sign - Last 24 Hours 11/21/20 11/21/20 11/21/20 11/21/20 14:00 15:00 16:00 16:00 Temp 95.8 95.8 Pulse 83 76 80 Resp 22 25 25 B/P (MAP) 145/86 (105) 146/84 (104) 130/88 (102) Pulse Ox 100 100 100 O2 Delivery Ventilator Ventilator Mechanical Ventilator Ventilator 11/21/20 11/21/20 11/21/20 11/21/20 16:00 16:03 17:00 17:07 Pulse 80 77 Resp 25 25 B/P (MAP) 133/80 (97) 148/73 (98) Pulse Ox 100 100 100 O2 Delivery Ventilator Ventilator Ventilator 11/21/20 11/21/20 11/21/20 11/21/20 17:37 18:00 19:00 19:30 Temp 95.7 95.7 Pulse 70 75 Resp 25 25 25 B/P (MAP) 134/73 (93) 124/67 (86) Pulse Ox 100 100 100 O2 Delivery Ventilator Ventilator Ventilator Mechanical Ventilator 11/21/20 11/21/20 11/21/20 11/21/20 19:30 19:30 20:00 20:00 Pulse 80 76 76 Resp 25 B/P (MAP) 129/71 (90) 129/71 (90) 129/71 (90) Pulse Ox 100 100 O2 Delivery Ventilator Ventilator 11/21/20 11/21/20 11/21/20 11/22/20 21:00 22:00 23:00 00:00 Temp 96.1 96.1 Pulse 74 74 78 89 Resp 25 25 25 25 B/P (MAP) 138/71 (93) 126/68 (87) 124/67 (86) 120/75 (90) Pulse Ox 100 100 100 100 O2 Delivery Ventilator Ventilator Ventilator Ventilator 11/22/20 11/22/20 11/22/20 11/22/20 00:00 00:15 00:20 01:00 Pulse 89 81 Resp 25 B/P (MAP) 129/71 (90) 122/73 (89) Pulse Ox 100 99 O2 Delivery Mechanical Ventilator Ventilator Ventilator 11/22/20 11/22/20 11/22/20 11/22/20 02:00 03:00 04:00 04:00 Temp 96.7 96.7 Pulse 89 84 78 80 Resp 25 23 25 B/P (MAP) 116/76 (89) 117/83 (94) 136/68 (90) 133/71 (91) Pulse Ox 100 100 100 O2 Delivery Ventilator Ventilator Ventilator 11/22/20 11/22/20 11/22/20 11/22/20 04:30 04:30 05:00 07:35 Pulse 74 Resp 24 B/P (MAP) 128/73 (91) Pulse Ox 100 100 100 O2 Delivery Ventilator Mechanical Ventilator Ventilator Ventilator 11/22/20 11:29 Pulse Ox 100 O2 Delivery Ventilator Intake and Output 11/21/20 11/21/20 11/22/20 15:00 23:00 07:00 Intake Total 350 ml 1408 ml 623 ml Output Total 23 ml 20 ml 40 ml Balance 327 ml 1388 ml 583 ml Problem List Problems Medical Problems: (1) KENNETH (acute kidney injury) Status: Acute (2) Atrial fibrillation with RVR Status: Acute (3) CHF (congestive heart failure) Status: Acute (4) Hypoglycemia Status: Acute (5) Pneumonia Status: Acute Assessment Cholestasis- with RHF, most likely multifactorial in etiology, prognosis guarded, CPM, await heart cath results Justicifation of Admission Dx: Justifications for Admission: Justification of Admission Dx: Yes CHF: Cardiac Arrhythmias MIRIAM HOBSON MD Nov 22, 2020 14:01
[2020-11-22] MEDS: THIAMINE 100 MG TABLET. PO SCH ×2 (14:40→22:09)
--- NOTE | 2020-11-22 15:30 | NUR ---
SS following up with discharge planning. SS reviewed pt chart and discussed with pt RN. Pt is currently on the vent at 35%. Pt had heart cath and SAMMY today. Pt off CRRT and starting hemodialysis tomorrow. Pt on IV Micafungin, IV Daptomycin, and IV Meropenem. Not stable. SS will continue to follow for discharge planning.
--- NOTE | 2020-11-22 15:47 | NUR ---
Please see downtime charting for physical assessment, vital signs, I&O, and medication administration from 0700 to 1800.
[2020-11-22] MEDS ORDERED: DAPTOmycin (GENERIC) IVPB 400 MG in IV NORMAL SALINE 50ML 50 ML IV SCH (16:00)
--- NOTE | 2020-11-22 16:01 | PDOC ---
[facility] PROGRESS NOTE Date of Service DOS: DATE: 11/22/20 TIME: 15:59 Chief Complaint Chief Complaint Multifactorial respiratory failure with severe heart failure (15% ejection fraction but was 60% just a few months ago) Status post intubation yesterday Sepsis Colitis Severe lactic acidosis Pneumonia Lactic acidosis Severe symptomatic hypoglycemia KENNETH due to vasomotor nephropathy Acute volume overload Coagulopathy History of atrial fibrillation/atrial flutter Secondary cor pulmonale due to pulmonary hypertension Anemia of chronic disease History of Present Illness History of Present Illness 11/22/2020 Patient seen in ICU. On vent, FiO2 35%, PEEP 5. Afebrile. Receiving hemodialysis this morning. Plan for heart cath today. Discussed with RN. 11/21/2020 Patient seen and evaluated in ICU. Intubated on vent with FiO2 35%, PEEP 5. She is to have right heart cath today. Continue IV antibiotics, per ID. Charts and labs reviewed, discussed with RN. 11/20/2020 Patient seen and examined in the ICU She is still on the vent Assist-control/16/400/40 percent with 6 of PEEP She is off the pressors today She is oxygenating a little bit better Discussed with poem writer considering right heart cath tomorrow On Tranexamic acid qtt per oncologist 11/19/2020 Patient seen and examined in the ICU She remains intubated Assist-control/16/400/40 percent with 6 of PEEP Is currently in A. fib Also on CRRT Chart reviewed Discussed with RN She remains extremely critically ill 11/18/2020 Patient seen and examined in the ICU She is now intubated Ejection fraction noted to be 15% She is extremely critically ill volume overloaded desatting to 78% despite being on 80% FiO2 on the vent Her mom is present I spent quite a bit of time discussing the case with her and escorted her to the [facility] where she wants to pray Discussed with RN Discussed with case management Chart reviewed Patient is on assist-control/26/400/80 percent FiO2 with 8 of PEEP We are considering starting CRRT this afternoon She is sedated with Versed fentanyl and Also has Levophed and vasopressin running On IV Zyvox Extremely critically ill 11/16/2020 Patient seen and examined in the ICU CT abdomen reviewed looks like she has some possible colitis Lactic acid has decreased from 22 down to 8 Discussed with RN Discussed with case management Chart reviewed Vitals/I&O Vitals/I&O: Vital Signs Date Time Temp Pulse Resp B/P (MAP) Pulse Ox O2 Delivery O2 Flow Rate FiO2 11/22/20 14:55 100 Ventilator 11/22/20 05:00 74 24 128/73 (91) 11/22/20 04:00 96.7 96.7 I & O 11/21/20 11/21/20 11/22/20 15:00 23:00 07:00 Intake Total 350 ml 1408 ml 623 ml Output Total 23 ml 20 ml 40 ml Balance 327 ml 1388 ml 583 ml Physical Exam General: Other (Sedated and intubated) Heart: Other (Irregular rhythm, PSM left lower PSB) Lungs: Clear Abdomen: Normal bowel sounds, Other (Minimal OG output) Extremities: No cyanosis, No edema Skin: No rashes, No breakdown Labs Labs: Laboratory Tests Test 11/21/20 16:45 11/21/20 23:30 11/22/20 05:00 11/22/20 08:00 White Blood Count 17.4 x10^3/uL (4.0-11.0) 15.7 x10^3/uL (4.0-11.0) Red Blood Count 4.10 x10^6/uL (3.50-5.40) 4.04 x10^6/uL (3.50-5.40) Hemoglobin 8.0 g/dL (12.0-15.5) 7.9 g/dL (12.0-15.5) Hematocrit 25.9 % (36.0-47.0) 25.7 % (36.0-47.0) Mean Corpuscular Volume 63 fL (79-100) 64 fL (79-100) Mean Corpuscular Hemoglobin 20 pg (25-35) 20 pg (25-35) Mean Corpuscular Hemoglobin Concent 31 g/dL (31-37) 31 g/dL (31-37) Red Cell Distribution Width 25.8 % (11.5-14.5) 25.7 % (11.5-14.5) Platelet Count 93 x10^3/uL (140-400) 79 x10^3/uL (140-400) Neutrophils (%) (Auto) 86 % (31-73) 87 % (31-73) Lymphocytes (%) (Auto) 8 % (24-48) 7 % (24-48) Monocytes (%) (Auto) 6 % (0-9) 5 % (0-9) Eosinophils (%) (Auto) 0 % (0-3) 0 % (0-3) Basophils (%) (Auto) 1 % (0-3) 0 % (0-3) Neutrophils # (Auto) 14.9 x10^3/uL (1.8-7.7) 13.7 x10^3/uL (1.8-7.7) Lymphocytes # (Auto) 1.4 x10^3/uL (1.0-4.8) 1.1 x10^3/uL (1.0-4.8) Monocytes # (Auto) 1.0 x10^3/uL (0.0-1.1) 0.8 x10^3/uL (0.0-1.1) Eosinophils # (Auto) 0.0 x10^3/uL (0.0-0.7) 0.0 x10^3/uL (0.0-0.7) Basophils # (Auto) 0.1 x10^3/uL (0.0-0.2) 0.0 x10^3/uL (0.0-0.2) Sodium Level 137 mmol/L (136-145) 136 mmol/L (136-145) 136 mmol/L (136-145) Potassium Level 3.5 mmol/L (3.5-5.1) 3.3 mmol/L (3.5-5.1) 3.5 mmol/L (3.5-5.1) Chloride Level 101 mmol/L (98-107) 100 mmol/L (98-107) 101 mmol/L (98-107) Carbon Dioxide Level 26 mmol/L (21-32) 25 mmol/L (21-32) 24 mmol/L (21-32) Anion Gap 10 (6-14) 11 (6-14) 11 (6-14) Blood Urea Nitrogen 14 mg/dL (7-20) 15 mg/dL (7-20) 14 mg/dL (7-20) Creatinine 0.8 mg/dL (0.6-1.0) 0.9 mg/dL (0.6-1.0) 0.8 mg/dL (0.6-1.0) Estimated GFR (Cockcroft-Gault) 96.6 84.3 96.6 Glucose Level 113 mg/dL (70-99) 157 mg/dL (70-99) 116 mg/dL (70-99) Calcium Level 8.5 mg/dL (8.5-10.1) 8.2 mg/dL (8.5-10.1) 8.5 mg/dL (8.5-10.1) Phosphorus Level 2.1 mg/dL (2.6-4.7) 2.6 mg/dL (2.6-4.7) 2.1 mg/dL (2.6-4.7) Magnesium Level 2.6 mg/dL (1.8-2.4) 2.5 mg/dL (1.8-2.4) 2.6 mg/dL (1.8-2.4) Triglycerides Level 102 mg/dL (0-150) O2 Saturation 99 % (92-99) Arterial Blood pH 7.54 (7.35-7.45) Arterial Blood pCO2 at Patient Temp 26 mmHg (35-46) Arterial Blood pO2 at Patient Temp 123 mmHg (75-108) Arterial Blood HCO3 22 mmol/L (21-28) Arterial Blood Base Excess 0 mmol/L (-3-3) FiO2 35% vent Test 11/22/20 10:35 White Blood Count 15.9 x10^3/uL (4.0-11.0) Red Blood Count 4.08 x10^6/uL (3.50-5.40) Hemoglobin 7.9 g/dL (12.0-15.5) Hematocrit 26.2 % (36.0-47.0) Mean Corpuscular Volume 64 fL (79-100) Mean Corpuscular Hemoglobin 19 pg (25-35) Mean Corpuscular Hemoglobin Concent 30 g/dL (31-37) Red Cell Distribution Width 25.9 % (11.5-14.5) Platelet Count 85 x10^3/uL (140-400) Neutrophils (%) (Auto) 84 % (31-73) Lymphocytes (%) (Auto) 10 % (24-48) Monocytes (%) (Auto) 5 % (0-9) Eosinophils (%) (Auto) 0 % (0-3) Basophils (%) (Auto) 0 % (0-3) Neutrophils # (Auto) 13.3 x10^3/uL (1.8-7.7) Lymphocytes # (Auto) 1.6 x10^3/uL (1.0-4.8) Monocytes # (Auto) 0.9 x10^3/uL (0.0-1.1) Eosinophils # (Auto) 0.0 x10^3/uL (0.0-0.7) Basophils # (Auto) 0.0 x10^3/uL (0.0-0.2) Segmented Neutrophils % 82 % (35-66) Band Neutrophils % 2 % (0-9) Lymphocytes % 10 % (24-48) Monocytes % 6 % (0-10) Nucleated Red Blood Cells 4 Platelet Estimate Decreased (ADEQUATE) Large Platelets Present Hypochromasia Mod Anisocytosis Mod Microcytosis Mod Ovalocytes Few Prothrombin Time 17.2 SEC (11.7-14.0) Prothromb Time International Ratio 1.4 (0.8-1.1) Sodium Level 136 mmol/L (136-145) Potassium Level 4.2 mmol/L (3.5-5.1) Chloride Level 100 mmol/L (98-107) Carbon Dioxide Level 24 mmol/L (21-32) Anion Gap 12 (6-14) Blood Urea Nitrogen 14 mg/dL (7-20) Creatinine 0.7 mg/dL (0.6-1.0) Estimated GFR (Cockcroft-Gault) 112.7 Glucose Level 133 mg/dL (70-99) Calcium Level 8.7 mg/dL (8.5-10.1) Magnesium Level 2.6 mg/dL (1.8-2.4) Assessment and Plan Assessmemt and Plan Problems Medical Problems: (1) KENNETH (acute kidney injury) Status: Acute (2) Atrial fibrillation with RVR Status: Acute (3) CHF (congestive heart failure) Status: Acute (4) Hypoglycemia Status: Acute (5) Pneumonia Status: Acute Comment Review of Relevant I have reviewed the following items josé (where applicable) has been applied. Medications: Current Medications Medications (Trade) Dose Ordered Sig/Kailey Route PRN Reason Start Time Stop Time Status Last Admin Dose Admin Sodium Phosphate 15 mmol/Sodium Chloride 255 ml @ 62.5 mls/hr 1X ONCE IV 11/21/20 18:30 11/21/20 22:34 DC 11/21/20 18:19 Potassium Chloride/Water 100 ml @ 100 mls/hr 1X ONCE IV 11/22/20 01:00 11/22/20 01:59 DC 11/22/20 00:55 Justifications for Admission Other Justification chf exacerbation ANGÉLICA RICHTER MD Nov 22, 2020 16:01
--- NOTE | 2020-11-22 16:53 | RAD ---
CT STUDY OF THE CHEST AND ABDOMEN AND PELVIS WITHOUT CONTRAST Clinical indications: Hypothermia. Lactic acidosis. Renal failure. TECHNIQUE: Noncontrast helical CT scanning of the chest and abdomen and pelvis was performed. Without IV or GI contrast material, the sensitivity to detect organ pathology and GI tract pathology is decr eased. PQRS compliance Statement One or more of the following individualized dose reduction techniques were utilized for this study: 1. Automated exposure control 2. Adjustment of the mA and/or kV according to patient size 3. Use of iterative reconstruction technique CHEST CT: No enlarged thoracic lymphadenopathy is evident. No focal aneurysmal dilatation of the thor acic aorta is seen. Cardiomegaly is evident. No pericardial effusion is seen. Small left-sided pleura l effusion and moderate size right-sided pleural effusion is seen. Bilateral lung infiltrates are see n most consolidative within the right lower lobe and left lower lobe. Left lower lobe is almost compl etely consolidated. Some of this could be due to atelectasis given the narrowing of the left lower lo be bronchus. Additional groundglass lung infiltrates are apparent within the upper lobes bilaterally and to lesser extent within the right middle lobe. Atypical pneumonia such as Covid 19 pneumonia is c ertainly possible. No pneumothorax is seen. No lytic process is seen. IMPRESSION: Bilateral lung infiltrates more consolidative within both lower lobes. The left lower lob e is almost completely consolidated. Some of this on the left side could be due to atelectasis relate d to narrowing of the left lower lobe bronchus. Additional groundglass nodular lung infiltrates are s een bilaterally. Therefore, atypical pneumonia such as Covid 19 pneumonia is possible as well. Bilateral pleural effusions; moderate size on the right side mild on the left side. Cardiomegaly. Therefore, lung infiltrates and pleural effusions could be reflection of CHF as well. ABDOMEN AND PELVIS CT: The liver and spleen and pancreas are unremarkable on this noncontrast study. Dense bile is seen with in the gallbladder which may represent biliary sludge or could be related to previous contrast study. No extra hepatic ductal dilatation is seen. No adrenal mass is evident. Contrast is seen within both kidneys. This is related to recent cardiac imaging. Multiple wedge-shaped hypodense areas of both ki dneys are seen. This could be secondary to multiple renal infarcts or pyelonephritis. No perinephric fluid collection is seen otherwise. No hydronephrosis is evident on either side. Urinary bladder is d ecompressed by an indwelling Sky catheter. No focal aneurysmal dilatation of the abdominal aorta is seen. No bulky abdominal or pelvic lymphadenopathy is evident. Mild fecal retention is seen within t he colon. There is mild dilatation of the right side of the colon. No obstructive bowel pattern is ev ident. NG tube tip is seen within the proximal body of the stomach. Stomach is not abnormally distend ed. There is a small amount of free fluid within the pelvis. Generalized anasarca of the soft tissues of the abdomen and pelvis and bilateral flanks is seen. No free air is apparent. A right groin zoltan ter is seen extending into right external iliac artery or vein. No lytic process is evident. IMPRESSION: Multiple wedge-shaped hypodense areas are seen within both kidneys consistent with bilate ral renal infarcts or pyelonephritis. No hydronephrosis. Small amount of ascites is seen within the pelvis. Generalized anasarca. Electronically signed by: Humberto Henriquez MD (11/22/2020 4:50 PM) [id number]
--- NOTE | 2020-11-22 17:14 | PDOC ---
PULMONARY PROGRESS NOTES DATE: 11/22/20 TIME: 17:08 Subjective Patient intubated 11/17 remains on vent support 16/400/5/35% CRRT and bear hugger sedated on versed and fent No other concerns overnight Vitals Vital Signs Date Time Temp Pulse Resp B/P (MAP) Pulse Ox O2 Delivery O2 Flow Rate FiO2 11/22/20 14:55 100 Ventilator 11/22/20 05:00 74 24 128/73 (91) 11/22/20 04:00 96.7 96.7 Comments Intubated Lungs: Clear Cardiovascular: S1, S2 Abdomen: Soft Neuro Exam: Alert Extremities: No Edema Skin: Warm, Dry Labs Laboratory Tests Test 11/20/20 17:45 11/21/20 00:03 11/21/20 06:04 11/21/20 07:52 Prothrombin Time 19.4 SEC (11.7-14.0) 17.8 SEC (11.7-14.0) Prothromb Time International Ratio 1.7 (0.8-1.1) 1.5 (0.8-1.1) Sodium Level 135 mmol/L (136-145) 134 mmol/L (136-145) 136 mmol/L (136-145) Potassium Level 3.3 mmol/L (3.5-5.1) 3.6 mmol/L (3.5-5.1) 3.5 mmol/L (3.5-5.1) Chloride Level 101 mmol/L (98-107) 101 mmol/L (98-107) 103 mmol/L (98-107) Carbon Dioxide Level 26 mmol/L (21-32) 25 mmol/L (21-32) 24 mmol/L (21-32) Anion Gap 8 (6-14) 8 (6-14) 9 (6-14) Blood Urea Nitrogen 12 mg/dL (7-20) 11 mg/dL (7-20) 12 mg/dL (7-20) Creatinine 0.8 mg/dL (0.6-1.0) 0.8 mg/dL (0.6-1.0) 0.7 mg/dL (0.6-1.0) Estimated GFR (Cockcroft-Gault) 96.6 96.6 112.7 BUN/Creatinine Ratio 15 (6-20) 14 (6-20) 17 (6-20) Glucose Level 103 mg/dL (70-99) 118 mg/dL (70-99) 104 mg/dL (70-99) Calcium Level 8.0 mg/dL (8.5-10.1) 8.2 mg/dL (8.5-10.1) 8.2 mg/dL (8.5-10.1) Phosphorus Level 2.2 mg/dL (2.6-4.7) 1.8 mg/dL (2.6-4.7) 3.1 mg/dL (2.6-4.7) Magnesium Level 2.5 mg/dL (1.8-2.4) 2.6 mg/dL (1.8-2.4) 2.5 mg/dL (1.8-2.4) Total Bilirubin 5.4 mg/dL (0.2-1.0) 5.5 mg/dL (0.2-1.0) 5.5 mg/dL (0.2-1.0) Aspartate Amino Transf (AST/SGOT) 164 U/L (15-37) 159 U/L (15-37) 149 U/L (15-37) Alanine Aminotransferase (ALT/SGPT) 103 U/L (14-59) 105 U/L (14-59) 103 U/L (14-59) Alkaline Phosphatase 166 U/L (46-116) 122 U/L (46-116) 127 U/L (46-116) Total Protein 6.0 g/dL (6.4-8.2) 6.2 g/dL (6.4-8.2) 6.5 g/dL (6.4-8.2) Albumin 2.4 g/dL (3.4-5.0) 2.5 g/dL (3.4-5.0) 2.6 g/dL (3.4-5.0) Albumin/Globulin Ratio 0.7 (1.0-1.7) 0.7 (1.0-1.7) 0.7 (1.0-1.7) White Blood Count 17.6 x10^3/uL (4.0-11.0) Red Blood Count 4.08 x10^6/uL (3.50-5.40) Hemoglobin 7.9 g/dL (12.0-15.5) Hematocrit 26.3 % (36.0-47.0) Mean Corpuscular Volume 65 fL (79-100) Mean Corpuscular Hemoglobin 19 pg (25-35) Mean Corpuscular Hemoglobin Concent 30 g/dL (31-37) Red Cell Distribution Width 25.7 % (11.5-14.5) Platelet Count 96 x10^3/uL (140-400) O2 Saturation 99 % (92-99) Arterial Blood pH 7.52 (7.35-7.45) Arterial Blood pCO2 at Patient Temp 30 mmHg (35-46) Arterial Blood pO2 at Patient Temp 127 mmHg (75-108) Arterial Blood HCO3 24 mmol/L (21-28) Arterial Blood Base Excess 1 mmol/L (-3-3) FiO2 35 vent Test 11/21/20 16:45 11/21/20 23:30 11/22/20 05:00 11/22/20 08:00 White Blood Count 17.4 x10^3/uL (4.0-11.0) 15.7 x10^3/uL (4.0-11.0) Red Blood Count 4.10 x10^6/uL (3.50-5.40) 4.04 x10^6/uL (3.50-5.40) Hemoglobin 8.0 g/dL (12.0-15.5) 7.9 g/dL (12.0-15.5) Hematocrit 25.9 % (36.0-47.0) 25.7 % (36.0-47.0) Mean Corpuscular Volume 63 fL (79-100) 64 fL (79-100) Mean Corpuscular Hemoglobin 20 pg (25-35) 20 pg (25-35) Mean Corpuscular Hemoglobin Concent 31 g/dL (31-37) 31 g/dL (31-37) Red Cell Distribution Width 25.8 % (11.5-14.5) 25.7 % (11.5-14.5) Platelet Count 93 x10^3/uL (140-400) 79 x10^3/uL (140-400) Neutrophils (%) (Auto) 86 % (31-73) 87 % (31-73) Lymphocytes (%) (Auto) 8 % (24-48) 7 % (24-48) Monocytes (%) (Auto) 6 % (0-9) 5 % (0-9) Eosinophils (%) (Auto) 0 % (0-3) 0 % (0-3) Basophils (%) (Auto) 1 % (0-3) 0 % (0-3) Neutrophils # (Auto) 14.9 x10^3/uL (1.8-7.7) 13.7 x10^3/uL (1.8-7.7) Lymphocytes # (Auto) 1.4 x10^3/uL (1.0-4.8) 1.1 x10^3/uL (1.0-4.8) Monocytes # (Auto) 1.0 x10^3/uL (0.0-1.1) 0.8 x10^3/uL (0.0-1.1) Eosinophils # (Auto) 0.0 x10^3/uL (0.0-0.7) 0.0 x10^3/uL (0.0-0.7) Basophils # (Auto) 0.1 x10^3/uL (0.0-0.2) 0.0 x10^3/uL (0.0-0.2) Sodium Level 137 mmol/L (136-145) 136 mmol/L (136-145) 136 mmol/L (136-145) Potassium Level 3.5 mmol/L (3.5-5.1) 3.3 mmol/L (3.5-5.1) 3.5 mmol/L (3.5-5.1) Chloride Level 101 mmol/L (98-107) 100 mmol/L (98-107) 101 mmol/L (98-107) Carbon Dioxide Level 26 mmol/L (21-32) 25 mmol/L (21-32) 24 mmol/L (21-32) Anion Gap 10 (6-14) 11 (6-14) 11 (6-14) Blood Urea Nitrogen 14 mg/dL (7-20) 15 mg/dL (7-20) 14 mg/dL (7-20) Creatinine 0.8 mg/dL (0.6-1.0) 0.9 mg/dL (0.6-1.0) 0.8 mg/dL (0.6-1.0) Estimated GFR (Cockcroft-Gault) 96.6 84.3 96.6 Glucose Level 113 mg/dL (70-99) 157 mg/dL (70-99) 116 mg/dL (70-99) Calcium Level 8.5 mg/dL (8.5-10.1) 8.2 mg/dL (8.5-10.1) 8.5 mg/dL (8.5-10.1) Phosphorus Level 2.1 mg/dL (2.6-4.7) 2.6 mg/dL (2.6-4.7) 2.1 mg/dL (2.6-4.7) Magnesium Level 2.6 mg/dL (1.8-2.4) 2.5 mg/dL (1.8-2.4) 2.6 mg/dL (1.8-2.4) Triglycerides Level 102 mg/dL (0-150) O2 Saturation 99 % (92-99) Arterial Blood pH 7.54 (7.35-7.45) Arterial Blood pCO2 at Patient Temp 26 mmHg (35-46) Arterial Blood pO2 at Patient Temp 123 mmHg (75-108) Arterial Blood HCO3 22 mmol/L (21-28) Arterial Blood Base Excess 0 mmol/L (-3-3) FiO2 35% vent Test 11/22/20 10:35 White Blood Count 15.9 x10^3/uL (4.0-11.0) Red Blood Count 4.08 x10^6/uL (3.50-5.40) Hemoglobin 7.9 g/dL (12.0-15.5) Hematocrit 26.2 % (36.0-47.0) Mean Corpuscular Volume 64 fL (79-100) Mean Corpuscular Hemoglobin 19 pg (25-35) Mean Corpuscular Hemoglobin Concent 30 g/dL (31-37) Red Cell Distribution Width 25.9 % (11.5-14.5) Platelet Count 85 x10^3/uL (140-400) Neutrophils (%) (Auto) 84 % (31-73) Lymphocytes (%) (Auto) 10 % (24-48) Monocytes (%) (Auto) 5 % (0-9) Eosinophils (%) (Auto) 0 % (0-3) Basophils (%) (Auto) 0 % (0-3) Neutrophils # (Auto) 13.3 x10^3/uL (1.8-7.7) Lymphocytes # (Auto) 1.6 x10^3/uL (1.0-4.8) Monocytes # (Auto) 0.9 x10^3/uL (0.0-1.1) Eosinophils # (Auto) 0.0 x10^3/uL (0.0-0.7) Basophils # (Auto) 0.0 x10^3/uL (0.0-0.2) Segmented Neutrophils % 82 % (35-66) Band Neutrophils % 2 % (0-9) Lymphocytes % 10 % (24-48) Monocytes % 6 % (0-10) Nucleated Red Blood Cells 4 Platelet Estimate Decreased (ADEQUATE) Large Platelets Present Hypochromasia Mod Anisocytosis Mod Microcytosis Mod Ovalocytes Few Prothrombin Time 17.2 SEC (11.7-14.0) Prothromb Time International Ratio 1.4 (0.8-1.1) Sodium Level 136 mmol/L (136-145) Potassium Level 4.2 mmol/L (3.5-5.1) Chloride Level 100 mmol/L (98-107) Carbon Dioxide Level 24 mmol/L (21-32) Anion Gap 12 (6-14) Blood Urea Nitrogen 14 mg/dL (7-20) Creatinine 0.7 mg/dL (0.6-1.0) Estimated GFR (Cockcroft-Gault) 112.7 Glucose Level 133 mg/dL (70-99) Calcium Level 8.7 mg/dL (8.5-10.1) Magnesium Level 2.6 mg/dL (1.8-2.4) Laboratory Tests Test 11/21/20 23:30 11/22/20 05:00 11/22/20 08:00 11/22/20 10:35 White Blood Count 15.7 x10^3/uL (4.0-11.0) 15.9 x10^3/uL (4.0-11.0) Red Blood Count 4.04 x10^6/uL (3.50-5.40) 4.08 x10^6/uL (3.50-5.40) Hemoglobin 7.9 g/dL (12.0-15.5) 7.9 g/dL (12.0-15.5) Hematocrit 25.7 % (36.0-47.0) 26.2 % (36.0-47.0) Mean Corpuscular Volume 64 fL (79-100) 64 fL (79-100) Mean Corpuscular Hemoglobin 20 pg (25-35) 19 pg (25-35) Mean Corpuscular Hemoglobin Concent 31 g/dL (31-37) 30 g/dL (31-37) Red Cell Distribution Width 25.7 % (11.5-14.5) 25.9 % (11.5-14.5) Platelet Count 79 x10^3/uL (140-400) 85 x10^3/uL (140-400) Neutrophils (%) (Auto) 87 % (31-73) 84 % (31-73) Lymphocytes (%) (Auto) 7 % (24-48) 10 % (24-48) Monocytes (%) (Auto) 5 % (0-9) 5 % (0-9) Eosinophils (%) (Auto) 0 % (0-3) 0 % (0-3) Basophils (%) (Auto) 0 % (0-3) 0 % (0-3) Neutrophils # (Auto) 13.7 x10^3/uL (1.8-7.7) 13.3 x10^3/uL (1.8-7.7) Lymphocytes # (Auto) 1.1 x10^3/uL (1.0-4.8) 1.6 x10^3/uL (1.0-4.8) Monocytes # (Auto) 0.8 x10^3/uL (0.0-1.1) 0.9 x10^3/uL (0.0-1.1) Eosinophils # (Auto) 0.0 x10^3/uL (0.0-0.7) 0.0 x10^3/uL (0.0-0.7) Basophils # (Auto) 0.0 x10^3/uL (0.0-0.2) 0.0 x10^3/uL (0.0-0.2) Sodium Level 136 mmol/L (136-145) 136 mmol/L (136-145) 136 mmol/L (136-145) Potassium Level 3.3 mmol/L (3.5-5.1) 3.5 mmol/L (3.5-5.1) 4.2 mmol/L (3.5-5.1) Chloride Level 100 mmol/L (98-107) 101 mmol/L (98-107) 100 mmol/L (98-107) Carbon Dioxide Level 25 mmol/L (21-32) 24 mmol/L (21-32) 24 mmol/L (21-32) Anion Gap 11 (6-14) 11 (6-14) 12 (6-14) Blood Urea Nitrogen 15 mg/dL (7-20) 14 mg/dL (7-20) 14 mg/dL (7-20) Creatinine 0.9 mg/dL (0.6-1.0) 0.8 mg/dL (0.6-1.0) 0.7 mg/dL (0.6-1.0) Estimated GFR (Cockcroft-Gault) 84.3 96.6 112.7 Glucose Level 157 mg/dL (70-99) 116 mg/dL (70-99) 133 mg/dL (70-99) Calcium Level 8.2 mg/dL (8.5-10.1) 8.5 mg/dL (8.5-10.1) 8.7 mg/dL (8.5-10.1) Phosphorus Level 2.6 mg/dL (2.6-4.7) 2.1 mg/dL (2.6-4.7) Magnesium Level 2.5 mg/dL (1.8-2.4) 2.6 mg/dL (1.8-2.4) 2.6 mg/dL (1.8-2.4) Triglycerides Level 102 mg/dL (0-150) O2 Saturation 99 % (92-99) Arterial Blood pH 7.54 (7.35-7.45) Arterial Blood pCO2 at Patient Temp 26 mmHg (35-46) Arterial Blood pO2 at Patient Temp 123 mmHg (75-108) Arterial Blood HCO3 22 mmol/L (21-28) Arterial Blood Base Excess 0 mmol/L (-3-3) FiO2 35% vent Segmented Neutrophils % 82 % (35-66) Band Neutrophils % 2 % (0-9) Lymphocytes % 10 % (24-48) Monocytes % 6 % (0-10) Nucleated Red Blood Cells 4 Platelet Estimate Decreased (ADEQUATE) Large Platelets Present Hypochromasia Mod Anisocytosis Mod Microcytosis Mod Ovalocytes Few Prothrombin Time 17.2 SEC (11.7-14.0) Prothromb Time International Ratio 1.4 (0.8-1.1) Medications Active Scripts Medications Dose Route/Sig Max Daily Dose Days Date Category Amiodarone Hcl 200 Mg Tablet 200 Mg PO DAILY 30 09/29/20 Rx Eliquis (Apixaban) 5 Mg Tablet 5 Mg PO BID 30 09/29/20 Rx Doxycycline Hyclate 100 Mg Tablet 100 Mg PO BID 5 09/29/20 Rx Klor-Con M20 (Potassium Chloride) 20 Meq Tab.er.prt 20 Meq PO DAILYWBKFT 30 09/29/20 Rx Furosemide 40 Mg Tablet 40 Mg PO DAILY 30 09/29/20 Rx Omeprazole 20 Mg Capsule.dr 1 Cap PO DAILY 08/08/20 Reported Metoprolol Tartrate 25 Mg Tablet 1 Tab PO BID 12/20/14 Reported Feosol (Ferrous Sulfate) 325 Mg Tablet 325 Mg PO DAILY 12/20/14 Reported Aspirin 325 Mg Tablet 1 Tab PO DAILY 12/20/14 Reported Amitriptyline Hcl 50 Mg Tablet 1 Tab PO QHS 12/17/14 Reported Ultram (Tramadol Hcl) 50 Mg Tablet 1 Tab PO Q6HRS PRN 11/01/14 Reported Dulera 100 Mcg/5 Mcg Inhaler (Mometasone/Formoterol) 13 Gm Hfa.aer.ad 2 Puff IH BID 11/01/14 Reported Lidoderm (Lidocaine) 700 Mg Adh..patch 1 Patch TP DAILY PRN 11/01/14 Reported Neurontin (Gabapentin) 300 Mg Capsule 2 Cap PO BID 11/01/14 Reported Flonase (Fluticasone Propionate) 16 Gm Otley.susp 2 Otley NS DAILY 11/01/14 Reported Cyclobenzaprine Hcl 10 Mg Tablet 1 Tab PO TID PRN 11/01/14 Reported Celexa (Citalopram Hydrobromide) 40 Mg Tablet 1 Tab PO DAILY 11/01/14 Reported Cetirizine Hcl 10 Mg Tablet 1 Tab PO DAILY 11/01/14 Reported Proair Hfa Inhaler (Albuterol Sulfate) 8.5 Gm Hfa.aer.ad 2 Puff IH PRN Q4-6HRS 11/01/14 Reported Comments CXR IMPRESSION: 1. New left internal jugular temporary dialysis catheter in acceptable position. Otherwise stable support lines and tubes 2. Increasing pulmonary infiltrates and small right pleural effusion Impression . IMPRESSION: 1. Acute hypoxemic respiratory failure multifactorial 2. Septic shock etiology on clear 3. Possible pneumonia, gram-negative, gram-positive. Chest x-ray abnormal suspect combination of pulmonary edema and pneumonia 4. Acute kidney injury. 5. Colitis seen on CT abdomen and pelvis 6. Atrial fibrillation/atrial flutter. 7. Acute on chronic heart failure. 8. Bilateral pleural effusions. 9. History of ASD, status post closure. 10. Chronic obstructive pulmonary disease with exacerbation. 11. Gmmph-kc-mxrsxki cor pulmonale. 12. Severe metabolic acidosis 13. coagulopathy 14. Acute kidney injury 15. Acute liver failure 16. Positive urine drug screen 17. Cardiomyopathy ejection fraction of 15% Plan . Continue current support with assist control ventilation Fi02 35%/ PEEP of 5 Follow CXR/ABG- reduce rate to 12 COVID-19 negative Follow hematology recs ---- tranexamic acid/ Follow INR Follow nephrology recs -- on CRRT Antibiotics per infectious disease service Follow cardiology input patient echocardiogram revealed ejection fraction 15%, and Afib now off A/C-- S/P cardiac Cath and SAMMY on 11/22-- no intervention-- see report Follow surgery recs--- no surgical plans at this time Nutritional support per GI/Renal-- TPN ? DVT/GI PPX : SCDS/protonix D/W RN and RT critically ill Total cumulative critical care time from 0900-0930AM DARIAN BASS MD Nov 22, 2020 17:14
[2020-11-22] MEDS: BUDESONIDE 0.5 MG/2 ML NEBU. NEB SCH (20:09)
[2020-11-23] VITALS (24 sets, daily range): BP systolic 96–144; BP diastolic 51–90
[2020-11-23] MEDS: MIDAZOLAM 100mg/100ml NS BAG 100 ML IV PRN ×2 (00:26→14:00)
[2020-11-23] MEDS: fentaNYL HIGH DOSE PCA 55 ML IV PRN ×2 (01:45→19:51)
[2020-11-23] MEDS: HYDROCORTISONE SOD SUCC/PF 100 MG/2 ML VIAL. IVP SCH ×3 (05:35→21:08)
[2020-11-23 06:22] LABS: CALCIUM 8.7 mg/dL (8.5-10.1); CREATININE 1.9 mg/dL (0.6-1.0); GFR 35.6; MAGNESIUM 2.7 mg/dL (1.8-2.4); PHOSPHORUS 5.2 mg/dL (2.6-4.7); POTASSIUM 4.6 mmol/L (3.5-5.1)
--- NOTE | 2020-11-23 07:49 | CARD ---
MR#: [id number] Date of Study: 11/22/2020 Ordering Physician: SAAD MULLINS, Referring Physician: SAAD MULLINS, Tech: Mari Hooper APPROVED REPORT Technologist: Mari Hooper Nurse: Darlene Ornelas Procedure(s) performed: Right and left heart catheterization, selective coronary angiography Heart Failure Class 4 fl time: 10.0 mins dose: 31 gycm2 contrast: 83 ml moderate sedation: 66 MINUTES INDICATION The indication(s) include : Acute combined systolic and diastolic heart failure, cor pulmonale, pulmo nary hypertension. CS Clinical Frailty Scale CS Clinical Frailty Scale: Moderately Frail Heart Failure Heart Failure: Yes If Yes, Newly Diagnosed: No If Yes, HF Type: Systolic PROCEDURE NARRATIVE After explaining the risk, benefits and alternative options, informed consent was obtained from ayleen oliveira's family since patient was intubated. She was brought to the cardiac [facility] and her left groin was prepped and draped in the usual fashion. Attempts to advance a transesophageal echocardiogram pr obe to evaluate her valvular heart disease were unsuccessful and more aggressive measures were abando rui with plans for addressing this after patient is extubated. 20 cc of 2% lidocaine was infiltrated into the skin and subcutaneous tissues of the left groin for local anesthesia. Arterial and venous accesses were obtained in the left common femoral artery and vein respectively and 6 and 8 English she aths were inserted. A 7.5 English Moosic-Glenis catheter was advanced under fluoroscopic guidance and int racardiac pressures, oxygen saturations and cardiac output by Antonio method were measured. 6 English JL 4 6 English JR4 catheters were used to perform selective angiography of the left and right coronary ar teries. LVEDP and transaortic gradients were measured. Left ventriculography was not performed sinc e patient had a recent 2D echocardiogram. She tolerated the procedure well. Hemostasis in the left groin was achieved using Mynx closure device and manual compression. There were no immediate complic ations. FINDINGS A. RIGHT HEART CATHETERIZATION a. Intracardiac pressures: Mean right atrial pressure 28 mmHg, right ventricular pressure 57/12 mmHg , pulmonary artery pressure 59/40 mmHg with mean PA pressure 46 mmHg, mean pulmonary capillary wedge pressure 31 mmHg. This is consistent with moderate pulmonary hypertension with elevated left-sided a nd right sided filling pressures consistent with her diagnosis of acute on chronic combined systolic and diastolic heart failure. b. Oxygen saturations: Right atrium 35.9%, pulmonary artery 35.8% and femoral arterial sheath 98.2%. No evidence of intracardiac shunt. c. Cardiac output by Antonio method 3.3 L/min. B. LEFT HEART CATHETERIZATION a. Hemodynamics: Elevated left ventricular end-diastolic pressure of 30 mmHg. No pullback gradient across aortic valve. b. Coronary angiography 1. The left main coronary artery arose from the left sinus of Valsalva, gave rise to the left anteri or descending and left circumflex arteries and did not show any significant stenosis. 2. The left anterior descending artery did not show any significant stenosis. 3. The left circumflex artery did not show any significant stenosis. 4. The right coronary artery was a large and dominant vessel arising from the right sinus of Valsalv a that did not show any significant stenosis. Conclusion 1. No significant coronary disease 2. Moderate pulmonary hypertension with elevated left and right-sided filling pressures consistent w ith acute on chronic combined systolic and diastolic heart failure 3. No evidence of intracardiac shunt Recommendations Optimization of medical therapy for nonischemic cardiomyopathy and repeat 2D echo in 3 months Signed by : Saad Mullins, Electronically Approved : 11/23/2020 07:49:05
--- NOTE | 2020-11-23 07:50 | CARD ---
MR#: [id number] Date of Study: 11/22/2020 Ordering Physician: SAAD MULLINS, Referring Physician: SAAD MULLINS, Tech: Ange Randallboborenetta [facility] APPROVED REPORT EXAM: Two-dimensional and M-mode echocardiogram with Doppler and color Doppler. INDICATION Valvular Heart Disease Reason For Test : Rule out Intracardiac Thrombus. PROCEDURE After obtaining informed consent, patient underwent transesophageal echo in the [facility]. Type of Sedation : General Anesthesia Throughout the procedure, the blood pressure, pulse oximetry, cardiac rhythm, and rate were monitored . Critical Notification Critical Value: No <Conclusion> Several attempts to insert transesophageal echocardiogram probe were unsuccessful. Patient was bitin g down on the probe even though she was well sedated. We will attempt SAMMY again after patient is ext ubated. Signed by : Saad Mullnis, Electronically Approved : 11/23/2020 07:50:36
[2020-11-23] MEDS: BUDESONIDE 0.5 MG/2 ML NEBU. NEB SCH ×2 (07:53→20:06)
[2020-11-23] MEDS: IPRATRPIUM/ALBUTEROL 0.5/2.5MG 3 ML NEBU. NEB SCH ×4 (07:53→20:06)
[2020-11-23 08:12] LABS: BASE EXCESS ABG -6 mmol/L (-3-3); HCO3 ABG 17 mmol/L (21-28); PCO2 ABG 27 mmHg (35-46); PO2 ABG 125 mmHg (75-108); SAT O2 ABG 98 % (92-99)
[2020-11-23 08:13] LABS: FIO2 ABG 35% VENT
[2020-11-23 08:16] LABS: BASO # 0.1 x10^3/uL (0.0-0.2); BASO % 0 % (0-3); EOS % 0 % (0-3); HEMATOCRIT 26.8 % (36.0-47.0); LYMPH # 1.8 x10^3/uL (1.0-4.8); LYMPH % 10 % (24-48); MEAN CORPUSCULAR HEMOGLOBIN 20 pg (25-35); MEAN CORPUSCULAR HGB CONC 30 g/dL (31-37); MEAN CORPUSCULAR VOLUME 65 fL (79-100); MONO # 1.2 x10^3/uL (0.0-1.1); MONO % 7 % (0-9); NEUT # 14.7 x10^3/uL (1.8-7.7); NEUT % 83 % (31-73); PLATELET COUNT 85 x10^3/uL (140-400); RED BLOOD COUNT 4.12 x10^6/uL (3.50-5.40); RED CELL DISTRIBUTION WIDTH 26.1 % (11.5-14.5); WHITE BLOOD COUNT 17.7 x10^3/uL (4.0-11.0)
[2020-11-23] MEDS: GABAPENTIN 300 MG CAPSULE. PO SCH ×2 (08:39→21:08)
[2020-11-23] MEDS: CITALOPRAM 20 MG TABLET. PO SCH (08:39)
[2020-11-23] MEDS: THIAMINE 100 MG TABLET. PO SCH ×3 (08:39→21:11)
[2020-11-23] MEDS: TRANEXAMIC ACID in NS IVPB 50 ML INJ SCH (08:40)
[2020-11-23] MEDS: FLUTICASONE 50MCG/NASAL SPRAY 16GM BOTTLE. NS SCH (08:41)
[2020-11-23] MEDS: PANTOPRAZOLE IV PUSH 40 MG VIAL. IVP SCH (08:43)
[2020-11-23] MEDS: MEROPENEM 500 MG in IV NORMAL SALINE 50ML 50 ML IV SCH (09:00)
--- NOTE | 2020-11-23 10:15 | PDOC ---
PULMONARY PROGRESS NOTES DATE: 11/23/20 TIME: 10:14 Subjective Patient intubated 11/17 remains on vent support 12/400/5/35% sedated on versed and fent low grade fever this am No other concerns overnight Vitals Vital Signs Date Time Temp Pulse Resp B/P (MAP) Pulse Ox O2 Delivery O2 Flow Rate FiO2 11/23/20 07:42 100 Ventilator 11/23/20 06:00 122 24 126/80 (95) 11/23/20 04:00 99.6 99.6 11/23/20 02:15 6.0 Comments Intubated Lungs: Clear Cardiovascular: S1, S2 Abdomen: Soft Neuro Exam: Alert Extremities: No Edema Skin: Warm, Dry Labs Laboratory Tests Test 11/21/20 16:45 11/21/20 23:30 11/22/20 05:00 11/22/20 08:00 White Blood Count 17.4 x10^3/uL (4.0-11.0) 15.7 x10^3/uL (4.0-11.0) Red Blood Count 4.10 x10^6/uL (3.50-5.40) 4.04 x10^6/uL (3.50-5.40) Hemoglobin 8.0 g/dL (12.0-15.5) 7.9 g/dL (12.0-15.5) Hematocrit 25.9 % (36.0-47.0) 25.7 % (36.0-47.0) Mean Corpuscular Volume 63 fL (79-100) 64 fL (79-100) Mean Corpuscular Hemoglobin 20 pg (25-35) 20 pg (25-35) Mean Corpuscular Hemoglobin Concent 31 g/dL (31-37) 31 g/dL (31-37) Red Cell Distribution Width 25.8 % (11.5-14.5) 25.7 % (11.5-14.5) Platelet Count 93 x10^3/uL (140-400) 79 x10^3/uL (140-400) Neutrophils (%) (Auto) 86 % (31-73) 87 % (31-73) Lymphocytes (%) (Auto) 8 % (24-48) 7 % (24-48) Monocytes (%) (Auto) 6 % (0-9) 5 % (0-9) Eosinophils (%) (Auto) 0 % (0-3) 0 % (0-3) Basophils (%) (Auto) 1 % (0-3) 0 % (0-3) Neutrophils # (Auto) 14.9 x10^3/uL (1.8-7.7) 13.7 x10^3/uL (1.8-7.7) Lymphocytes # (Auto) 1.4 x10^3/uL (1.0-4.8) 1.1 x10^3/uL (1.0-4.8) Monocytes # (Auto) 1.0 x10^3/uL (0.0-1.1) 0.8 x10^3/uL (0.0-1.1) Eosinophils # (Auto) 0.0 x10^3/uL (0.0-0.7) 0.0 x10^3/uL (0.0-0.7) Basophils # (Auto) 0.1 x10^3/uL (0.0-0.2) 0.0 x10^3/uL (0.0-0.2) Sodium Level 137 mmol/L (136-145) 136 mmol/L (136-145) 136 mmol/L (136-145) Potassium Level 3.5 mmol/L (3.5-5.1) 3.3 mmol/L (3.5-5.1) 3.5 mmol/L (3.5-5.1) Chloride Level 101 mmol/L (98-107) 100 mmol/L (98-107) 101 mmol/L (98-107) Carbon Dioxide Level 26 mmol/L (21-32) 25 mmol/L (21-32) 24 mmol/L (21-32) Anion Gap 10 (6-14) 11 (6-14) 11 (6-14) Blood Urea Nitrogen 14 mg/dL (7-20) 15 mg/dL (7-20) 14 mg/dL (7-20) Creatinine 0.8 mg/dL (0.6-1.0) 0.9 mg/dL (0.6-1.0) 0.8 mg/dL (0.6-1.0) Estimated GFR (Cockcroft-Gault) 96.6 84.3 96.6 Glucose Level 113 mg/dL (70-99) 157 mg/dL (70-99) 116 mg/dL (70-99) Calcium Level 8.5 mg/dL (8.5-10.1) 8.2 mg/dL (8.5-10.1) 8.5 mg/dL (8.5-10.1) Phosphorus Level 2.1 mg/dL (2.6-4.7) 2.6 mg/dL (2.6-4.7) 2.1 mg/dL (2.6-4.7) Magnesium Level 2.6 mg/dL (1.8-2.4) 2.5 mg/dL (1.8-2.4) 2.6 mg/dL (1.8-2.4) Triglycerides Level 102 mg/dL (0-150) O2 Saturation 99 % (92-99) Arterial Blood pH 7.54 (7.35-7.45) Arterial Blood pCO2 at Patient Temp 26 mmHg (35-46) Arterial Blood pO2 at Patient Temp 123 mmHg (75-108) Arterial Blood HCO3 22 mmol/L (21-28) Arterial Blood Base Excess 0 mmol/L (-3-3) FiO2 35% vent Test 11/22/20 10:35 11/23/20 05:45 11/23/20 08:00 White Blood Count 15.9 x10^3/uL (4.0-11.0) 17.7 x10^3/uL (4.0-11.0) Red Blood Count 4.08 x10^6/uL (3.50-5.40) 4.12 x10^6/uL (3.50-5.40) Hemoglobin 7.9 g/dL (12.0-15.5) 8.0 g/dL (12.0-15.5) Hematocrit 26.2 % (36.0-47.0) 26.8 % (36.0-47.0) Mean Corpuscular Volume 64 fL (79-100) 65 fL (79-100) Mean Corpuscular Hemoglobin 19 pg (25-35) 20 pg (25-35) Mean Corpuscular Hemoglobin Concent 30 g/dL (31-37) 30 g/dL (31-37) Red Cell Distribution Width 25.9 % (11.5-14.5) 26.1 % (11.5-14.5) Platelet Count 85 x10^3/uL (140-400) 85 x10^3/uL (140-400) Neutrophils (%) (Auto) 84 % (31-73) 83 % (31-73) Lymphocytes (%) (Auto) 10 % (24-48) 10 % (24-48) Monocytes (%) (Auto) 5 % (0-9) 7 % (0-9) Eosinophils (%) (Auto) 0 % (0-3) 0 % (0-3) Basophils (%) (Auto) 0 % (0-3) 0 % (0-3) Neutrophils # (Auto) 13.3 x10^3/uL (1.8-7.7) 14.7 x10^3/uL (1.8-7.7) Lymphocytes # (Auto) 1.6 x10^3/uL (1.0-4.8) 1.8 x10^3/uL (1.0-4.8) Monocytes # (Auto) 0.9 x10^3/uL (0.0-1.1) 1.2 x10^3/uL (0.0-1.1) Eosinophils # (Auto) 0.0 x10^3/uL (0.0-0.7) 0.0 x10^3/uL (0.0-0.7) Basophils # (Auto) 0.0 x10^3/uL (0.0-0.2) 0.1 x10^3/uL (0.0-0.2) Segmented Neutrophils % 82 % (35-66) Band Neutrophils % 2 % (0-9) Lymphocytes % 10 % (24-48) Monocytes % 6 % (0-10) Nucleated Red Blood Cells 4 Platelet Estimate Decreased (ADEQUATE) Large Platelets Present Hypochromasia Mod Anisocytosis Mod Microcytosis Mod Ovalocytes Few Prothrombin Time 17.2 SEC (11.7-14.0) Prothromb Time International Ratio 1.4 (0.8-1.1) Sodium Level 136 mmol/L (136-145) 135 mmol/L (136-145) Potassium Level 4.2 mmol/L (3.5-5.1) 4.6 mmol/L (3.5-5.1) Chloride Level 100 mmol/L (98-107) 100 mmol/L (98-107) Carbon Dioxide Level 24 mmol/L (21-32) 20 mmol/L (21-32) Anion Gap 12 (6-14) 15 (6-14) Blood Urea Nitrogen 14 mg/dL (7-20) 41 mg/dL (7-20) Creatinine 0.7 mg/dL (0.6-1.0) 1.9 mg/dL (0.6-1.0) Estimated GFR (Cockcroft-Gault) 112.7 35.6 Glucose Level 133 mg/dL (70-99) 127 mg/dL (70-99) Calcium Level 8.7 mg/dL (8.5-10.1) 8.7 mg/dL (8.5-10.1) Magnesium Level 2.6 mg/dL (1.8-2.4) 2.7 mg/dL (1.8-2.4) Phosphorus Level 5.2 mg/dL (2.6-4.7) O2 Saturation 98 % (92-99) Arterial Blood pH 7.43 (7.35-7.45) Arterial Blood pCO2 at Patient Temp 27 mmHg (35-46) Arterial Blood pO2 at Patient Temp 125 mmHg (75-108) Arterial Blood HCO3 17 mmol/L (21-28) Arterial Blood Base Excess -6 mmol/L (-3-3) FiO2 35% vent Laboratory Tests Test 11/22/20 10:35 11/23/20 05:45 11/23/20 08:00 White Blood Count 15.9 x10^3/uL (4.0-11.0) 17.7 x10^3/uL (4.0-11.0) Red Blood Count 4.08 x10^6/uL (3.50-5.40) 4.12 x10^6/uL (3.50-5.40) Hemoglobin 7.9 g/dL (12.0-15.5) 8.0 g/dL (12.0-15.5) Hematocrit 26.2 % (36.0-47.0) 26.8 % (36.0-47.0) Mean Corpuscular Volume 64 fL (79-100) 65 fL (79-100) Mean Corpuscular Hemoglobin 19 pg (25-35) 20 pg (25-35) Mean Corpuscular Hemoglobin Concent 30 g/dL (31-37) 30 g/dL (31-37) Red Cell Distribution Width 25.9 % (11.5-14.5) 26.1 % (11.5-14.5) Platelet Count 85 x10^3/uL (140-400) 85 x10^3/uL (140-400) Neutrophils (%) (Auto) 84 % (31-73) 83 % (31-73) Lymphocytes (%) (Auto) 10 % (24-48) 10 % (24-48) Monocytes (%) (Auto) 5 % (0-9) 7 % (0-9) Eosinophils (%) (Auto) 0 % (0-3) 0 % (0-3) Basophils (%) (Auto) 0 % (0-3) 0 % (0-3) Neutrophils # (Auto) 13.3 x10^3/uL (1.8-7.7) 14.7 x10^3/uL (1.8-7.7) Lymphocytes # (Auto) 1.6 x10^3/uL (1.0-4.8) 1.8 x10^3/uL (1.0-4.8) Monocytes # (Auto) 0.9 x10^3/uL (0.0-1.1) 1.2 x10^3/uL (0.0-1.1) Eosinophils # (Auto) 0.0 x10^3/uL (0.0-0.7) 0.0 x10^3/uL (0.0-0.7) Basophils # (Auto) 0.0 x10^3/uL (0.0-0.2) 0.1 x10^3/uL (0.0-0.2) Segmented Neutrophils % 82 % (35-66) Band Neutrophils % 2 % (0-9) Lymphocytes % 10 % (24-48) Monocytes % 6 % (0-10) Nucleated Red Blood Cells 4 Platelet Estimate Decreased (ADEQUATE) Large Platelets Present Hypochromasia Mod Anisocytosis Mod Microcytosis Mod Ovalocytes Few Prothrombin Time 17.2 SEC (11.7-14.0) Prothromb Time International Ratio 1.4 (0.8-1.1) Sodium Level 136 mmol/L (136-145) 135 mmol/L (136-145) Potassium Level 4.2 mmol/L (3.5-5.1) 4.6 mmol/L (3.5-5.1) Chloride Level 100 mmol/L (98-107) 100 mmol/L (98-107) Carbon Dioxide Level 24 mmol/L (21-32) 20 mmol/L (21-32) Anion Gap 12 (6-14) 15 (6-14) Blood Urea Nitrogen 14 mg/dL (7-20) 41 mg/dL (7-20) Creatinine 0.7 mg/dL (0.6-1.0) 1.9 mg/dL (0.6-1.0) Estimated GFR (Cockcroft-Gault) 112.7 35.6 Glucose Level 133 mg/dL (70-99) 127 mg/dL (70-99) Calcium Level 8.7 mg/dL (8.5-10.1) 8.7 mg/dL (8.5-10.1) Magnesium Level 2.6 mg/dL (1.8-2.4) 2.7 mg/dL (1.8-2.4) Phosphorus Level 5.2 mg/dL (2.6-4.7) O2 Saturation 98 % (92-99) Arterial Blood pH 7.43 (7.35-7.45) Arterial Blood pCO2 at Patient Temp 27 mmHg (35-46) Arterial Blood pO2 at Patient Temp 125 mmHg (75-108) Arterial Blood HCO3 17 mmol/L (21-28) Arterial Blood Base Excess -6 mmol/L (-3-3) FiO2 35% vent Medications Active Scripts Medications Dose Route/Sig Max Daily Dose Days Date Category Amiodarone Hcl 200 Mg Tablet 200 Mg PO DAILY 30 09/29/20 Rx Eliquis (Apixaban) 5 Mg Tablet 5 Mg PO BID 30 09/29/20 Rx Doxycycline Hyclate 100 Mg Tablet 100 Mg PO BID 5 09/29/20 Rx Klor-Con M20 (Potassium Chloride) 20 Meq Tab.er.prt 20 Meq PO DAILYWBKFT 30 09/29/20 Rx Furosemide 40 Mg Tablet 40 Mg PO DAILY 30 09/29/20 Rx Omeprazole 20 Mg Capsule.dr 1 Cap PO DAILY 08/08/20 Reported Metoprolol Tartrate 25 Mg Tablet 1 Tab PO BID 12/20/14 Reported Feosol (Ferrous Sulfate) 325 Mg Tablet 325 Mg PO DAILY 12/20/14 Reported Aspirin 325 Mg Tablet 1 Tab PO DAILY 12/20/14 Reported Amitriptyline Hcl 50 Mg Tablet 1 Tab PO QHS 12/17/14 Reported Ultram (Tramadol Hcl) 50 Mg Tablet 1 Tab PO Q6HRS PRN 11/01/14 Reported Dulera 100 Mcg/5 Mcg Inhaler (Mometasone/Formoterol) 13 Gm Hfa.aer.ad 2 Puff IH BID 11/01/14 Reported Lidoderm (Lidocaine) 700 Mg Adh..patch 1 Patch TP DAILY PRN 11/01/14 Reported Neurontin (Gabapentin) 300 Mg Capsule 2 Cap PO BID 11/01/14 Reported Flonase (Fluticasone Propionate) 16 Gm [place].susp 2 [place] NS DAILY 11/01/14 Reported Cyclobenzaprine Hcl 10 Mg Tablet 1 Tab PO TID PRN 11/01/14 Reported Celexa (Citalopram Hydrobromide) 40 Mg Tablet 1 Tab PO DAILY 11/01/14 Reported Cetirizine Hcl 10 Mg Tablet 1 Tab PO DAILY 11/01/14 Reported Proair Hfa Inhaler (Albuterol Sulfate) 8.5 Gm Hfa.aer.ad 2 Puff IH PRN Q4-6HRS 11/01/14 Reported Comments CXR IMPRESSION: 1. New left internal jugular temporary dialysis catheter in acceptable position. Otherwise stable support lines and tubes 2. Increasing pulmonary infiltrates and small right pleural effusion Impression . IMPRESSION: 1. Acute hypoxemic respiratory failure multifactorial 2. Septic shock etiology on clear 3. Possible pneumonia, gram-negative, gram-positive. Chest x-ray abnormal suspect combination of pulmonary edema and pneumonia 4. Acute kidney injury. 5. Colitis seen on CT abdomen and pelvis 6. Atrial fibrillation/atrial flutter. 7. Acute on chronic heart failure. 8. Bilateral pleural effusions. 9. History of ASD, status post closure. 10. Chronic obstructive pulmonary disease with exacerbation. 11. Rkrue-pc-mbygdab cor pulmonale. 12. Severe metabolic acidosis 13. coagulopathy 14. Acute kidney injury 15. Acute liver failure 16. Positive urine drug screen 17. Cardiomyopathy ejection fraction of 15% Plan . Continue current support with assist control ventilation Fi02 35%/ PEEP of 5 D/C sedation and proceed with sedation vacation and pressure support trial Follow CXR/ABG- no changes today COVID-19 negative Follow hematology recs ---- tranexamic acid/ Follow INR Follow nephrology recs-- HD Antibiotics per infectious disease service Follow cardiology input patient echocardiogram revealed ejection fraction 15%, and Afib now off A/C-- S/P cardiac Cath and SAMMY on 11/22-- no intervention-- see report, now on primacor Follow surgery recs--- no surgical plans at this time Nutritional support DVT/GI PPX : SCDS/protonix D/W RN and RT critically ill Total cumulative critical care time from [id number] DARIAN BASS MD Nov 23, 2020 10:15
[2020-11-23] MEDS ORDERED: FUROSEMIDE 40 MG/4 ML VIAL. IVP ONE (10:30)
[2020-11-23] MEDS: MILRINONE 20MG/100ML PREMIX 100 ML IV PRN (10:57)
--- NOTE | 2020-11-23 11:00 | PDOC ---
Infectious Disease Note Subjective: Subjective Patient intubated /sedated Off avril hugger t max 99.6 Off pressure support Discussed with RN Vital Signs: Vital Signs Vital Signs Date Time Temp Pulse Resp B/P (MAP) Pulse Ox O2 Delivery O2 Flow Rate FiO2 11/23/20 08:00 111 11/23/20 07:42 100 Ventilator 11/23/20 06:00 24 11/23/20 04:00 99.6 99.6 11/23/20 02:15 6.0 Physical Exam: PHYSICAL EXAM GENERAL: Intubated/sedated HEENT ETT/OGT tube present Neck Right IJ, left HDC, clean LUNGS: Bibasilar Rales HEART: Irregular. Murmur present ABDOMEN: Mildly distended hypoactive bowel sounds EXTREMITIES: Generalized anasarca NEUROLOGIC: Intubated right femoral arterial line present DERM few areas of bruising present Medications: Inpatient Meds: Medications reviewed. Labs: Lab Laboratory Tests Test 11/23/20 05:45 11/23/20 08:00 White Blood Count 17.7 x10^3/uL (4.0-11.0) Red Blood Count 4.12 x10^6/uL (3.50-5.40) Hemoglobin 8.0 g/dL (12.0-15.5) Hematocrit 26.8 % (36.0-47.0) Mean Corpuscular Volume 65 fL (79-100) Mean Corpuscular Hemoglobin 20 pg (25-35) Mean Corpuscular Hemoglobin Concent 30 g/dL (31-37) Red Cell Distribution Width 26.1 % (11.5-14.5) Platelet Count 85 x10^3/uL (140-400) Neutrophils (%) (Auto) 83 % (31-73) Lymphocytes (%) (Auto) 10 % (24-48) Monocytes (%) (Auto) 7 % (0-9) Eosinophils (%) (Auto) 0 % (0-3) Basophils (%) (Auto) 0 % (0-3) Neutrophils # (Auto) 14.7 x10^3/uL (1.8-7.7) Lymphocytes # (Auto) 1.8 x10^3/uL (1.0-4.8) Monocytes # (Auto) 1.2 x10^3/uL (0.0-1.1) Eosinophils # (Auto) 0.0 x10^3/uL (0.0-0.7) Basophils # (Auto) 0.1 x10^3/uL (0.0-0.2) Sodium Level 135 mmol/L (136-145) Potassium Level 4.6 mmol/L (3.5-5.1) Chloride Level 100 mmol/L (98-107) Carbon Dioxide Level 20 mmol/L (21-32) Anion Gap 15 (6-14) Blood Urea Nitrogen 41 mg/dL (7-20) Creatinine 1.9 mg/dL (0.6-1.0) Estimated GFR (Cockcroft-Gault) 35.6 Glucose Level 127 mg/dL (70-99) Calcium Level 8.7 mg/dL (8.5-10.1) Phosphorus Level 5.2 mg/dL (2.6-4.7) Magnesium Level 2.7 mg/dL (1.8-2.4) O2 Saturation 98 % (92-99) Arterial Blood pH 7.43 (7.35-7.45) Arterial Blood pCO2 at Patient Temp 27 mmHg (35-46) Arterial Blood pO2 at Patient Temp 125 mmHg (75-108) Arterial Blood HCO3 17 mmol/L (21-28) Arterial Blood Base Excess -6 mmol/L (-3-3) FiO2 35% vent Objective: Assessment: Patient currently in multiorgan failure 1. Severe sepsis source likely GI 2. Leukocytosis and lactic acidosis. 3. Acute kidney injury with severe metabolic acidosis. 4. Abdominal pain, intermittent nausea.Colitis on CT abdomen, Gen surgery evaluated pt 5. Atrial fibrillation/flutter. 6. Acute on chronic congestive heart failure. 7. Valvular insufficiency. MR, severe TR, hepatic congestion 8. History of PFO closure/ASD repair. 9. Acute respiratory failure status post intubation 10. Pulmonary hypertension. 11. Coagulopathy. Thrombocytopenia 12. Abnormal liver function tests , hyperbilirubinemia 13. COVID-19 negative Plan: Plan of Care Continue Dapto, Merrem, micafungin ,zyvox Transesophageal echocardiogram attempted but was unsuccessful Cult remain nonrevealing Gen surgery has evaluated pt Monitor labs and cultures. Continue supportive care. Critically ill Prognosis very poor Discussed with mother at bedside Discussed with nursing staff MEGAN MEHTA MD Nov 23, 2020 11:00
--- NOTE | 2020-11-23 11:01 | PDOC ---
DATE OF SERVICE DATE: 11/23/20 TIME: 10:51 SUBJECTIVE ROS Taken offf CRRT for Cardiac cath on 11/22 . BP stable, not on pressors, remains intubated and sedated OBJECTIVE Vital Signs Vital Signs Date Time Temp Pulse Resp B/P (MAP) Pulse Ox O2 Delivery O2 Flow Rate FiO2 11/23/20 08:00 111 11/23/20 07:42 100 Ventilator 11/23/20 06:00 24 11/23/20 04:00 99.6 99.6 11/23/20 02:15 6.0 I & 0 Intake and Output 11/23/20 07:00 Intake Total 2259 ml Output Total 45 ml Balance 2214 ml IV Total 1385 ml Tube Feeding 616 ml Other 258 ml Output Urine Total 45 ml PHYSICAL EXAM Physical Exam General: Intubated, sedated HEENT: OG, EG + Neck supple Lungs: diminished bases Heart: S1S2 Abdomen: Soft, Extremities: Trace Bilat LE edema + Neuro: sedated, intubated Sky + Skin No rash DIAGNOSIS/ASSESSMENT Assessment & Plan KENNETH - Oligoanuric , ATN , Taken off CRRT (was initiated on 11/18) for cardiac cath on 11/22, hemodynamically stable, will switch to HD with UF as tolerated , if unable to tolerate re start CRRT CT scan 11/21 Multiple wedge-shaped hypodense areas are seen within both kidneys consistent with bilateral renal infarcts or pyelonephritis. No hydronephrosis. Supportive care, Strict I/O, monitor , replace E-Lytes as indicated . Received Contrast on 11/22 - Lt heart cath Abdominal pain POA - GS signed off Sepsis- elevated Lactic acid Metabolic acidosis POA- 11/08 Lactic acidosis, HD today Elevated LFT's Acute respiratory failure - Intubated, sedated . Rt Heart cath - elevated left-sided and right sided filling pressures consistent with her diagnosis of acute on chronic combined systolic and diastolic heart failure. Valvular insufficiency: notable for moderate MR and mod to severe TR Hx of of open ASD closure: 2014. Severe symptomatic hypoglycemia POA History of atrial fibrillation/atrial flutter Secondary cor pulmonale due to pulmonary hypertension Anemia of chronic disease- Fe def , Tsat 4, Defer to primary Pulm HTN - s/p Rt heart cath COMMENT/RELEVANT DATA Meds Current Medications Medications (Trade) Dose Ordered Sig/Kailey Start Time Stop Time Status Last Admin Dose Admin Acetaminophen (Tylenol) 650 mg PRN Q4HRS PRN 11/15/20 16:15 11/23/20 08:39 650 MG Albumin Human 500 ml @ 125 mls/hr 1X ONCE 11/17/20 15:15 11/17/20 19:14 DC 11/17/20 15:44 125 MLS/HR Albuterol/ Ipratropium (Duoneb) 3 ml RTQID 11/17/20 09:00 11/23/20 07:53 3 ML Amiodarone HCl (Cordarone) 200 mg DAILY 11/16/20 09:00 11/15/20 16:38 DC Aspirin (Tatianna Aspirin) 325 mg DAILY 11/16/20 09:00 11/15/20 16:38 DC Budesonide (Pulmicort) 0.5 mg RTBID 11/17/20 09:00 11/23/20 07:53 0.5 MG Calcium Carbonate/ Glycine (Tums) 1,000 mg PRN Q4HRS PRN 11/16/20 21:30 11/16/20 21:37 1,000 MG Calcium Gluconate 1000 mg/Sodium Chloride 110 ml @ 220 mls/hr 1X ONCE 11/17/20 17:15 11/17/20 17:44 DC 11/17/20 17:36 220 MLS/HR Cefepime HCl (Maxipime) 2 gm Q24H 11/15/20 17:00 11/17/20 11:51 DC 11/16/20 16:30 2 GM Chlorhexidine Gluconate (Peridex) 15 ml BID 11/17/20 21:00 11/19/20 20:39 DC 11/19/20 09:00 15 ML Citalopram Hydrobromide (CeleXA) 40 mg DAILY 11/16/20 09:00 11/23/20 08:39 40 MG Daptomycin 390 mg/ Sodium Chloride 50 ml @ 100 mls/hr Q48H 11/20/20 13:00 11/18/20 16:23 DC Daptomycin 400 mg/ Sodium Chloride 50 ml @ 100 mls/hr Q48H 11/23/20 21:00 Daptomycin 500 mg/ Sodium Chloride 50 ml @ 100 mls/hr Q48H 11/19/20 21:00 11/22/20 15:52 DC 11/21/20 20:46 100 MLS/HR Dextrose (Dextrose 50%-Water Syringe) 12.5 gm PRN Q15MIN PRN 11/15/20 16:15 Dextrose/Sodium Chloride 1,000 ml @ 50 mls/hr Q20H 11/15/20 16:00 11/19/20 17:06 DC 11/17/20 09:28 50 MLS/HR Digoxin (Lanoxin) 500 mcg 1X ONCE 11/17/20 15:30 11/17/20 15:31 DC 11/17/20 15:43 500 MCG Docusate Sodium (Colace) 100 mg PRN DAILY PRN 11/15/20 16:15 Epinephrine HCl 10 mg/Sodium Chloride 250 ml @ 11.85 mls/ hr CONT PRN 11/17/20 17:30 11/17/20 22:09 47.4 MLS/HR Epinephrine HCl 5 mg/Sodium Chloride 255 ml @ 24.266 mls/ hr CONT PRN 11/17/20 14:45 11/17/20 20:00 DC 11/17/20 19:44 121.328 MLS/HR Etomidate (Amidate) 12 mg 1X ONCE 11/17/20 14:15 11/17/20 14:16 DC 11/17/20 14:15 12 MG Fentanyl Citrate 55 ml @ 0 mls/hr CONT PRN PRN 11/19/20 21:00 11/23/20 01:45 3 MLS/HR Fentanyl Citrate (Fentanyl 2ml Vial) 50 mcg PRN Q1HR PRN 11/17/20 14:00 Fluticasone Propionate (Flonase) 2 spray DAILY 11/16/20 09:00 11/17/20 08:37 2 SPRAY Furosemide (Lasix) 40 mg 1X ONCE 11/23/20 10:30 11/23/20 10:31 DC Gabapentin (Neurontin) 600 mg BID 11/15/20 21:00 11/23/20 08:39 600 MG Heparin Sodium (Porcine) (Heparin Sodium) 5,000 unit Q12HR 11/15/20 21:00 11/15/20 16:17 DC Heparin Sodium/ Sodium Chloride 500 ml @ As Directed STK-MED ONCE 11/22/20 11:33 11/22/20 11:34 DC Hydrocortisone Sodium Succinate (Solu-CORTEF) 100 mg Q8HRS 11/17/20 22:00 11/23/20 05:35 100 MG Info (Tpn Per Pharmacy) 1 each PRN DAILY PRN 11/21/20 11:45 UNV Iodixanol (Visipaque 320) 100 ml STK-MED ONCE 11/22/20 11:33 11/22/20 11:33 DC Lidocaine HCl (Buffered Lidocaine 1%) 6 ml 1X ONCE 11/18/20 09:45 11/18/20 09:46 DC 11/18/20 09:53 5 ML Lidocaine HCl (Lidocaine 1% 20ml Vial) 20 ml STK-MED ONCE 11/22/20 11:33 11/22/20 11:33 DC Lidocaine HCl (Xylocaine 2% Topical 5gm Tube) 5 makenna STK-MED ONCE 11/16/20 12:00 11/17/20 15:35 DC Lidocaine HCl (Xylocaine-Mpf 1% 2ml Vial) 2 ml 1X ONCE 11/17/20 12:00 11/17/20 12:07 DC Linezolid/Dextrose 300 ml @ 300 mls/hr Q12HR 11/17/20 18:00 11/23/20 08:40 300 MLS/HR Meropenem 1 gm/ Sodium Chloride 100 ml @ 200 mls/hr Q12HR 11/18/20 21:00 11/22/20 15:50 DC 11/21/20 21:22 200 MLS/HR Meropenem 500 mg/ Sodium Chloride 50 ml @ 100 mls/hr DAILY 11/23/20 09:00 Metoprolol Tartrate (Lopressor) 50 mg BID 11/16/20 09:15 11/17/20 12:56 DC 11/17/20 09:24 50 MG Metronidazole 100 ml @ 100 mls/hr Q12HR 11/15/20 21:00 11/17/20 11:51 DC 11/17/20 08:41 100 MLS/HR Micafungin Sodium 100 mg/Dextrose 100 ml @ 100 mls/hr Q24H 11/17/20 12:30 11/22/20 12:00 100 MLS/HR Midazolam HCl 100 ml @ 0 mls/hr CONT PRN 11/17/20 14:00 11/23/20 00:26 7 MLS/HR Milrinone Lactate/ Dextrose 100 ml @ 8.786 mls/ hr CONT PRN 11/23/20 10:15 Morphine Sulfate (Morphine Sulfate) 4 mg PRN Q1HR PRN 11/17/20 14:00 Norepinephrine Bitartrate 32 mg/ Dextrose 250 ml @ 3.703 mls/ hr CONT PRN 11/17/20 13:30 11/18/20 03:50 14.813 MLS/HR Norepinephrine Bitartrate 8 mg/ Dextrose 258 ml @ 15.344 mls/ hr CONT PRN 11/17/20 11:15 11/17/20 14:30 DC 11/17/20 11:32 14.8 MLS/HR Ondansetron HCl (Zofran) 4 mg PRN Q6HRS PRN 11/15/20 16:15 Pantoprazole Sodium (PROTONIX VIAL for IV PUSH) 40 mg DAILYAC 11/18/20 07:30 11/23/20 08:43 40 MG Pantoprazole Sodium (Protonix) 40 mg DAILYAC 11/16/20 07:30 11/17/20 14:53 DC 11/17/20 08:36 40 MG Phenylephrine HCl 50 mg/Sodium Chloride 255 ml @ 12.133 mls/ hr CONT PRN 11/17/20 13:30 Piperacillin Sod/ Tazobactam Sod 3.375 gm/Sodium Chloride 50 ml @ 100 mls/hr 1X ONCE 11/15/20 13:00 11/15/20 13:29 DC 11/15/20 13:05 100 MLS/HR Potassium Chloride 15 meq/ Bicarbonate Dialysis Soln w/ out KCl 5,007.5 ml @ 1,250 mls/ hr Q4H1M 11/18/20 11:00 11/22/20 07:35 1,250 MLS/HR Potassium Chloride/Water 100 ml @ 100 mls/hr 1X ONCE 11/22/20 10:00 11/22/20 10:59 DC 11/22/20 09:35 100 MLS/HR Potassium Chloride (Klor-Con) 60 meq 1X ONCE 11/16/20 14:00 11/16/20 14:01 DC 11/16/20 14:06 60 MEQ Prothrombin Complex Concent (Human) 2000 unit/ Miscellaneous 80 ml @ 160 mls/hr 1X ONCE 11/18/20 14:30 11/18/20 14:59 DC 11/18/20 14:48 160 MLS/HR Ringer's Solution 1,000 ml @ 1,000 mls/hr Q1H ONCE 11/17/20 14:00 11/17/20 14:59 DC 11/17/20 15:45 1,000 MLS/HR Sennosides (Senna) 17.2 mg PRN BID PRN 11/15/20 16:15 Sodium Bicarbonate 150 meq/Dextrose 1,150 ml @ 125 mls/hr Q9H12M ONCE 11/17/20 11:30 11/17/20 20:41 DC 11/17/20 11:26 125 MLS/HR Sodium Bicarbonate (Sodium Bicarb Adult 8.4% Syr) 100 meq 1X ONCE 11/17/20 14:15 11/17/20 14:16 DC 11/17/20 14:15 100 MEQ Sodium Chloride 1,000 ml @ 0 mls/hr Q0M 11/19/20 15:30 Sodium Phosphate 15 mmol/Sodium Chloride 105 ml @ 105 mls/hr 1X ONCE 11/22/20 10:00 11/22/20 10:59 DC 11/22/20 10:40 105 MLS/HR Sodium Phosphate 20 mmol/Sodium Chloride 256.6667 ml @ 64.167 m... 1X ONCE 11/21/20 01:00 11/21/20 04:59 DC 11/21/20 00:54 64.167 MLS/HR Succinylcholine Chloride (Anectine) 100 mg 1X ONCE 11/17/20 14:15 11/17/20 14:16 DC 11/17/20 14:15 100 MG Thiamine Mononitrate (Vitamin B-1) 300 mg TID 11/17/20 14:00 11/23/20 08:39 300 MG Thiamine HCl 300 mg/Dextrose 53 ml @ 102 mls/hr Q8HRS 11/15/20 22:00 11/17/20 09:46 DC 11/17/20 06:17 102 MLS/HR Tranexamic Acid 50 ml @ 50 mls/hr Q12HR 11/18/20 13:00 11/23/20 08:40 50 MLS/HR Vancomycin HCl (Vanco Per Pharmacy) 1 each PRN DAILY PRN 11/15/20 16:15 2/10/21 11:05 DC Vancomycin HCl 2 gm/Sodium Chloride 500 ml @ 250 mls/hr 1X ONCE 11/15/20 13:00 11/15/20 14:59 DC 11/15/20 13:37 250 MLS/HR Vasopressin 20 unit/Dextrose 101 ml @ 12 mls/hr CONT PRN 11/17/20 13:30 UNV Vecuronium Weston (Norcuron Bolus) 6 mg PRN Q2HR PRN 11/17/20 20:00 11/17/20 22:11 6 MG Lab Laboratory Tests Test 11/23/20 05:45 11/23/20 08:00 White Blood Count 17.7 x10^3/uL (4.0-11.0) Red Blood Count 4.12 x10^6/uL (3.50-5.40) Hemoglobin 8.0 g/dL (12.0-15.5) Hematocrit 26.8 % (36.0-47.0) Mean Corpuscular Volume 65 fL (79-100) Mean Corpuscular Hemoglobin 20 pg (25-35) Mean Corpuscular Hemoglobin Concent 30 g/dL (31-37) Red Cell Distribution Width 26.1 % (11.5-14.5) Platelet Count 85 x10^3/uL (140-400) Neutrophils (%) (Auto) 83 % (31-73) Lymphocytes (%) (Auto) 10 % (24-48) Monocytes (%) (Auto) 7 % (0-9) Eosinophils (%) (Auto) 0 % (0-3) Basophils (%) (Auto) 0 % (0-3) Neutrophils # (Auto) 14.7 x10^3/uL (1.8-7.7) Lymphocytes # (Auto) 1.8 x10^3/uL (1.0-4.8) Monocytes # (Auto) 1.2 x10^3/uL (0.0-1.1) Eosinophils # (Auto) 0.0 x10^3/uL (0.0-0.7) Basophils # (Auto) 0.1 x10^3/uL (0.0-0.2) Sodium Level 135 mmol/L (136-145) Potassium Level 4.6 mmol/L (3.5-5.1) Chloride Level 100 mmol/L (98-107) Carbon Dioxide Level 20 mmol/L (21-32) Anion Gap 15 (6-14) Blood Urea Nitrogen 41 mg/dL (7-20) Creatinine 1.9 mg/dL (0.6-1.0) Estimated GFR (Cockcroft-Gault) 35.6 Glucose Level 127 mg/dL (70-99) Calcium Level 8.7 mg/dL (8.5-10.1) Phosphorus Level 5.2 mg/dL (2.6-4.7) Magnesium Level 2.7 mg/dL (1.8-2.4) O2 Saturation 98 % (92-99) Arterial Blood pH 7.43 (7.35-7.45) Arterial Blood pCO2 at Patient Temp 27 mmHg (35-46) Arterial Blood pO2 at Patient Temp 125 mmHg (75-108) Arterial Blood HCO3 17 mmol/L (21-28) Arterial Blood Base Excess -6 mmol/L (-3-3) FiO2 35% vent Results All relevant outside records, renal labs, imaging studies, telemetry/EKG's were reviewed. Justicifation of Admission Dx: Justifications for Admission: Justification of Admission Dx: Yes CHF: Cardiac Arrhythmias FRANCO SETHI MD Nov 23, 2020 11:01
--- NOTE | 2020-11-23 12:27 | PDOC ---
Date of Service: DATE: 11/23/20 TIME: 12:22 Objective: Objective: D/w nurse - tolerating tube feeds, will have HD today, no stools. Vital Signs: Vital Signs Date Time Temp Pulse Resp B/P (MAP) Pulse Ox O2 Delivery O2 Flow Rate FiO2 11/23/20 12:00 115 11/23/20 11:29 100 Ventilator 11/23/20 11:00 27 11/23/20 09:00 99.0 99.0 11/23/20 02:15 6.0 Labs: Laboratory Tests Test 11/23/20 05:45 11/23/20 08:00 White Blood Count 17.7 x10^3/uL Red Blood Count 4.12 x10^6/uL Hemoglobin 8.0 g/dL Hematocrit 26.8 % Mean Corpuscular Volume 65 fL Mean Corpuscular Hemoglobin 20 pg Mean Corpuscular Hemoglobin Concent 30 g/dL Red Cell Distribution Width 26.1 % Platelet Count 85 x10^3/uL Neutrophils (%) (Auto) 83 % Lymphocytes (%) (Auto) 10 % Monocytes (%) (Auto) 7 % Eosinophils (%) (Auto) 0 % Basophils (%) (Auto) 0 % Neutrophils # (Auto) 14.7 x10^3/uL Lymphocytes # (Auto) 1.8 x10^3/uL Monocytes # (Auto) 1.2 x10^3/uL Eosinophils # (Auto) 0.0 x10^3/uL Basophils # (Auto) 0.1 x10^3/uL Sodium Level 135 mmol/L Potassium Level 4.6 mmol/L Chloride Level 100 mmol/L Carbon Dioxide Level 20 mmol/L Anion Gap 15 Blood Urea Nitrogen 41 mg/dL Creatinine 1.9 mg/dL Estimated GFR (Cockcroft-Gault) 35.6 Glucose Level 127 mg/dL Calcium Level 8.7 mg/dL Phosphorus Level 5.2 mg/dL Magnesium Level 2.7 mg/dL O2 Saturation 98 % Arterial Blood pH 7.43 Arterial Blood pCO2 at Patient Temp 27 mmHg Arterial Blood pO2 at Patient Temp 125 mmHg Arterial Blood HCO3 17 mmol/L Arterial Blood Base Excess -6 mmol/L FiO2 35% vent Imaging: CT C/A/P 11/[address]: No enlarged thoracic lymphadenopathy is evident. No focal aneurysmal dilatation of the thoracic aorta is seen. Cardiomegaly is evident. No pericardial effusion is seen. Small left-sided pleural effusion and moderate size right-sided pleural effusion is seen. Bilateral lung infiltrates are seen most consolidative within the right lower lobe and left lower lobe. Left lower lobe is almost completely consolidated. Some of this could be due to atelectasis given the narrowing of the left lower lobe bronchus. Additional groundglass lung infiltrates are apparent within the upper lobes bilaterally and to lesser extent within the right middle lobe. Atypical pneumonia such as Covid 19 pneumonia is certainly possible. No pneumothorax is seen. No lytic process is seen. IMPRESSION: Bilateral lung infiltrates more consolidative within both lower lobes. The left lower lobe is almost completely consolidated. Some of this on the left side could be due to atelectasis related to narrowing of the left lower lobe bronchus. Additional groundglass nodular lung infiltrates are seen bilaterally. Therefore, atypical pneumonia such as Covid 19 pneumonia is possible as well. Bilateral pleural effusions; moderate size on the right side mild on the left side. Cardiomegaly. Therefore, lung infiltrates and pleural effusions could be reflection of CHF as well. ABDOMEN AND PELVIS CT: The liver and spleen and pancreas are unremarkable on this noncontrast study. Dense bile is seen within the gallbladder which may represent biliary sludge or could be related to previous contrast study. No extra hepatic ductal dilatation is seen. No adrenal mass is evident. Contrast is seen within both kidneys. This is related to recent cardiac imaging. Multiple wedge-shaped hypodense areas of both kidneys are seen. This could be secondary to multiple renal infarcts or pyelonephritis. No perinephric fluid collection is seen otherwise. No hydronephrosis is evident on either side. Urinary bladder is decompressed by an indwelling Sky catheter. No focal aneurysmal dilatation of the abdominal aorta is seen. No bulky abdominal or pelvic lymphadenopathy is evident. Mild fecal retention is seen within the colon. There is mild dilatation of the right side of the colon. No obstructive bowel pattern is evident. NG tube tip is seen within the proximal body of the stomach. Stomach is not abnormally distended. There is a small amount of free fluid within the pelvis. Generalized anasarca of the soft tissues of the abdomen and pelvis and bilateral flanks is seen. No free air is apparent. A right groin catheter is seen extending into right external iliac artery or vein. No lytic process is evident. IMPRESSION: Multiple wedge-shaped hypodense areas are seen within both kidneys consistent with bilateral renal infarcts or pyelonephritis. No hydronephrosis. Small amount of ascites is seen within the pelvis. Generalized anasarca. Cardiac Cath 11/22 Conclusion 1. No significant coronary disease 2. Moderate pulmonary hypertension with elevated left and right-sided filling pressures consistent with acute on chronic combined systolic and diastolic heart failure 3. No evidence of intracardiac shunt Recommendations Optimization of medical therapy for nonischemic cardiomyopathy and repeat 2D echo in 3 months. SAMMY 11/22 <Conclusion> Several attempts to insert transesophageal echocardiogram probe were unsuccessful. Patient was biting down on the probe even though she was well sedated. We will attempt SAMMY again after patient is extubated. PE: GEN: intubated LUNGS: vent/clear HEART: tachycardic ABD: soft, quiet, OG feeds running @30cc NEURO/PSYCH: sedated A/P: NICM, resp failure, KENNETH COREEN - stable Coagulopathy (better), elevated LFTs (better - checked 11/21) COVID negative 11/17 -- Tolerating tube feeds, continue same per GI. Fecal retention on CT - consider suppository. Justicifation of Admission Dx: Justifications for Admission: Justification of Admission Dx: Yes CHF: Cardiac Arrhythmias EMILEE WRIGHT Nov 23, 2020 12:27
[2020-11-23] MEDS: MICAFUNGIN 100 MG in IV DEXTROSE 5% 100ML 100 ML IV SCH (12:30)
[2020-11-23] MEDS ORDERED: BISACODYL 10 MG SUPP.RECT. PR PRN (12:30)
--- NOTE | 2020-11-23 13:02 | PDOC ---
[employer] PROGRESS NOTE Date of Service DOS: DATE: 11/23/20 TIME: 12:58 Chief Complaint Chief Complaint Multifactorial respiratory failure with severe heart failure (15% ejection fraction but was 60% just a few months ago) Status post intubation yesterday Sepsis Colitis Severe lactic acidosis Pneumonia Lactic acidosis Severe symptomatic hypoglycemia KENNETH due to vasomotor nephropathy Acute volume overload Coagulopathy History of atrial fibrillation/atrial flutter Secondary cor pulmonale due to pulmonary hypertension Anemia of chronic disease History of Present Illness History of Present Illness 11/23/2020 Patient seen in ICU. She remains intubated and sedated, FiO2 35%, PEEP 5. SAMMY was attempted but unsuccessful; plans to repeat SAMMY when extubated. Continue Dapto, meropenem, micafungin, and Zyvox, per ID 11/22/2020 Patient seen in ICU. On vent, FiO2 35%, PEEP 5. Afebrile. Receiving hemodialysis this morning. Plan for heart cath today. Discussed with RN. 11/21/2020 Patient seen and evaluated in ICU. Intubated on vent with FiO2 35%, PEEP 5. She is to have right heart cath today. Continue IV antibiotics, per ID. Charts and labs reviewed, discussed with RN. 11/20/2020 Patient seen and examined in the ICU She is still on the vent Assist-control/16/400/40 percent with 6 of PEEP She is off the pressors today She is oxygenating a little bit better Discussed with field service supervisor considering right heart cath tomorrow On Tranexamic acid qtt per oncologist 11/19/2020 Patient seen and examined in the ICU She remains intubated Assist-control/16/400/40 percent with 6 of PEEP Is currently in A. fib Also on CRRT Chart reviewed Discussed with RN She remains extremely critically ill 11/18/2020 Patient seen and examined in the ICU She is now intubated Ejection fraction noted to be 15% She is extremely critically ill volume overloaded desatting to 78% despite being on 80% FiO2 on the vent Her mom is present I spent quite a bit of time discussing the case with her and escorted her to the [facility] where she wants to pray Discussed with RN Discussed with case management Chart reviewed Patient is on assist-control/26/400/80 percent FiO2 with 8 of PEEP We are considering starting CRRT this afternoon She is sedated with Versed fentanyl and Also has Levophed and vasopressin running On IV Zyvox Extremely critically ill 11/16/2020 Patient seen and examined in the ICU CT abdomen reviewed looks like she has some possible colitis Lactic acid has decreased from 22 down to 8 Discussed with RN Discussed with case management Chart reviewed Vitals/I&O Vitals/I&O: Vital Signs Date Time Temp Pulse Resp B/P (MAP) Pulse Ox O2 Delivery O2 Flow Rate FiO2 11/23/20 12:00 Mechanical Ventilator 11/23/20 12:00 115 11/23/20 11:29 100 11/23/20 11:00 27 11/23/20 09:00 99.0 99.0 11/23/20 02:15 6.0 I & O 11/22/20 11/22/20 11/23/20 15:00 23:00 07:00 Intake Total 450 ml 575 ml 1234 ml Output Total 45 ml Balance 450 ml 575 ml 1189 ml Physical Exam Physical Exam: GENERAL: Intubated/sedated HEENT ETT/OGT tube present Neck Right IJ, left HDC, clean LUNGS: Bibasilar Rales HEART: Irregular. Murmur present ABDOMEN: Mildly distended hypoactive bowel sounds EXTREMITIES: Generalized anasarca NEUROLOGIC: Intubated right femoral arterial line present DERM few areas of bruising present General: Other (Sedated and intubated) Heart: Other (Irregular rhythm, PSM left lower PSB) Lungs: Clear Abdomen: Normal bowel sounds, Other (Minimal OG output) Extremities: No cyanosis, No edema Skin: No rashes, No breakdown Labs Labs: Laboratory Tests Test 11/23/20 05:45 11/23/20 08:00 White Blood Count 17.7 x10^3/uL (4.0-11.0) Red Blood Count 4.12 x10^6/uL (3.50-5.40) Hemoglobin 8.0 g/dL (12.0-15.5) Hematocrit 26.8 % (36.0-47.0) Mean Corpuscular Volume 65 fL (79-100) Mean Corpuscular Hemoglobin 20 pg (25-35) Mean Corpuscular Hemoglobin Concent 30 g/dL (31-37) Red Cell Distribution Width 26.1 % (11.5-14.5) Platelet Count 85 x10^3/uL (140-400) Neutrophils (%) (Auto) 83 % (31-73) Lymphocytes (%) (Auto) 10 % (24-48) Monocytes (%) (Auto) 7 % (0-9) Eosinophils (%) (Auto) 0 % (0-3) Basophils (%) (Auto) 0 % (0-3) Neutrophils # (Auto) 14.7 x10^3/uL (1.8-7.7) Lymphocytes # (Auto) 1.8 x10^3/uL (1.0-4.8) Monocytes # (Auto) 1.2 x10^3/uL (0.0-1.1) Eosinophils # (Auto) 0.0 x10^3/uL (0.0-0.7) Basophils # (Auto) 0.1 x10^3/uL (0.0-0.2) Sodium Level 135 mmol/L (136-145) Potassium Level 4.6 mmol/L (3.5-5.1) Chloride Level 100 mmol/L (98-107) Carbon Dioxide Level 20 mmol/L (21-32) Anion Gap 15 (6-14) Blood Urea Nitrogen 41 mg/dL (7-20) Creatinine 1.9 mg/dL (0.6-1.0) Estimated GFR (Cockcroft-Gault) 35.6 Glucose Level 127 mg/dL (70-99) Calcium Level 8.7 mg/dL (8.5-10.1) Phosphorus Level 5.2 mg/dL (2.6-4.7) Magnesium Level 2.7 mg/dL (1.8-2.4) O2 Saturation 98 % (92-99) Arterial Blood pH 7.43 (7.35-7.45) Arterial Blood pCO2 at Patient Temp 27 mmHg (35-46) Arterial Blood pO2 at Patient Temp 125 mmHg (75-108) Arterial Blood HCO3 17 mmol/L (21-28) Arterial Blood Base Excess -6 mmol/L (-3-3) FiO2 35% vent Assessment and Plan Assessmemt and Plan Problems Medical Problems: (1) KENNETH (acute kidney injury) Status: Acute (2) Atrial fibrillation with RVR Status: Acute (3) CHF (congestive heart failure) Status: Acute (4) Hypoglycemia Status: Acute (5) Pneumonia Status: Acute Comment Review of Relevant I have reviewed the following items josé (where applicable) has been applied. Medications: Current Medications Medications (Trade) Dose Ordered Sig/Kailey Route PRN Reason Start Time Stop Time Status Last Admin Dose Admin Meropenem 500 mg/ Sodium Chloride 50 ml @ 100 mls/hr DAILY IV 11/23/20 09:00 11/23/20 09:00 Milrinone Lactate/ Dextrose 100 ml @ 8.786 mls/ hr CONT PRN IV SEE I/O RECORD 11/23/20 10:15 11/23/20 10:57 Furosemide (Lasix) 40 mg 1X ONCE IVP 11/23/20 10:30 11/23/20 10:31 DC 11/23/20 10:30 Justifications for Admission Other Justification chf exacerbation ANGÉLICA RICHTER MD Nov 23, 2020 13:02
[2020-11-23] MEDS ORDERED: IV NORMAL SALINE 1000ML BAG 1,000 ML IV PRN (13:15)
[2020-11-23] MEDS ORDERED: DIALYSIS PATIENT. MC PRN (13:15)
[2020-11-23] MEDS ORDERED: ALBUMIN HUMAN 25% 200 ML IV PRN (13:15)
--- NOTE | 2020-11-23 13:28 | PDOC ---
MARI VIVAS PLAY READER 11/23/20 1328: CARDIO Progress Notes Date and Time Date of Service 11/23/2020 Time of Evaluation 0950 Subjective Subjective: Other (intubated) Vitals Vitals Vital Signs Date Time Temp Pulse Resp B/P (MAP) Pulse Ox O2 Delivery O2 Flow Rate FiO2 11/23/20 12:00 Mechanical Ventilator 11/23/20 12:00 115 11/23/20 11:29 100 11/23/20 11:00 27 11/23/20 09:00 99.0 99.0 11/23/20 02:15 6.0 Weight Weight [ ] Input and Output Intake and Output Intake and Output 11/23/20 06:59 Intake Total 2259 ml Output Total 45 ml Balance 2214 ml IV Total 1385 ml Tube Feeding 616 ml Other 258 ml Output Urine Total 45 ml Laboratory Labs Laboratory Tests Test 11/23/20 05:45 11/23/20 08:00 White Blood Count 17.7 x10^3/uL (4.0-11.0) Red Blood Count 4.12 x10^6/uL (3.50-5.40) Hemoglobin 8.0 g/dL (12.0-15.5) Hematocrit 26.8 % (36.0-47.0) Mean Corpuscular Volume 65 fL (79-100) Mean Corpuscular Hemoglobin 20 pg (25-35) Mean Corpuscular Hemoglobin Concent 30 g/dL (31-37) Red Cell Distribution Width 26.1 % (11.5-14.5) Platelet Count 85 x10^3/uL (140-400) Neutrophils (%) (Auto) 83 % (31-73) Lymphocytes (%) (Auto) 10 % (24-48) Monocytes (%) (Auto) 7 % (0-9) Eosinophils (%) (Auto) 0 % (0-3) Basophils (%) (Auto) 0 % (0-3) Neutrophils # (Auto) 14.7 x10^3/uL (1.8-7.7) Lymphocytes # (Auto) 1.8 x10^3/uL (1.0-4.8) Monocytes # (Auto) 1.2 x10^3/uL (0.0-1.1) Eosinophils # (Auto) 0.0 x10^3/uL (0.0-0.7) Basophils # (Auto) 0.1 x10^3/uL (0.0-0.2) Sodium Level 135 mmol/L (136-145) Potassium Level 4.6 mmol/L (3.5-5.1) Chloride Level 100 mmol/L (98-107) Carbon Dioxide Level 20 mmol/L (21-32) Anion Gap 15 (6-14) Blood Urea Nitrogen 41 mg/dL (7-20) Creatinine 1.9 mg/dL (0.6-1.0) Estimated GFR (Cockcroft-Gault) 35.6 Glucose Level 127 mg/dL (70-99) Calcium Level 8.7 mg/dL (8.5-10.1) Phosphorus Level 5.2 mg/dL (2.6-4.7) Magnesium Level 2.7 mg/dL (1.8-2.4) O2 Saturation 98 % (92-99) Arterial Blood pH 7.43 (7.35-7.45) Arterial Blood pCO2 at Patient Temp 27 mmHg (35-46) Arterial Blood pO2 at Patient Temp 125 mmHg (75-108) Arterial Blood HCO3 17 mmol/L (21-28) Arterial Blood Base Excess -6 mmol/L (-3-3) FiO2 35% vent Microbiology Micro Microbiology 11/17/20 Blood Culture - Final, Complete NO GROWTH AFTER 5 DAYS 11/15/20 Urine Culture - Final, Complete Physical Exam HEENT: Neck Supple W Full Motion Chest: Symmetric LUNGS: Other (diminished , intubated, vent) Heart: RRR (sinus tach) Abdomen: Other (anasarca) Extremities: Other (anasarca) Neurology: other (sedation) Assessment Assessment 1. Acute on chronic systolic/diastolic CHF:: still fluid overloaded 2. AFIB/flutter: 90-110, notable for biatrial dilation. was on eliquis. 3. Acute respiratory failure with a/c CHF, possible PNA, cor pulmonale: intubated with vent 4. Valvular insufficiency: notable for moderate MR and mod to severe TR 5. H/o ASD s/p surgical closure: 2014. Unable to advance probe as pt was biting during SAMMY for reevaluation 6. Severe KENNETH: improved after CRRT 7. Anemia: multifactorial. possible UGI erosions. Hgb 8 8. Transaminitis, coagulopathy; INR better at 1.4 9. Severe NICM: 15-20%, LHC revealed no CAD 10. Cardiohepatorenal syndrome: contributor to above issues 11. Hypertension: controlled 12. Hypoglycemia, profound improved 13. Fever: T max overnight 101.3 14. Abdominal pain; CT with possible colitis 15. Marijuana use 16. Thrmobocytopenia Recommendations 1. Last CRRT yesterday. Cr increasing today. Will start milrinone and restart lasix therapy 2. Off pressors. Restart metoprolol per OF 3. Dig PRN 5. No ASA, OAC at this time with anemia, coagulopathy 6. Empiric antibiotics 7. Supportive care Justicifation of Admission Dx: Justifications for Admission: Justification of Admission Dx: Yes CHF: Cardiac Arrhythmias SAAD YAN MD 11/23/201918: CARDIO Progress Notes Assessment Assessment Patient seen and examined. Agree with SUPERVISOR [employer]ING ROOM's assessment and plan. Cardiac cath yesterday did not show any significant CAD LVEDP and PCWP pressures elevated suggesting patient needs more fluid removal Agree with starting milrinone infusion for inotropic support and diuresis with IV lasix Continue HD per nephrology team and vent management per pulm team Could not pass SAMMY probe yesterday - will reattempt once extubated Off pressors, continue abx per MARI KINCAID APRN Nov 23, 2020 13:28 SAAD YAN MD Nov 23, 2020 19:19
[2020-11-23] MEDS: METOPROLOL TART IMMED RELEASE 25 MG TABLET. PO SCH ×2 (13:43→21:08)
--- NOTE | 2020-11-23 16:04 | NUR ---
SS following up with discharge planning. SS reviewed pt chart and discussed with pt RN. Pt is currently on the vent at 35%. Pt on IV Daptomycin, IV Micafungin, IV Meropenem, and IV Zyvox. SAMMY unsuccessful yesterday. Pt on Milrinone drip and Lasix. Not stable. SS will continue to follow for discharge planning.
[2020-11-23] MEDS: DAPTOmycin (GENERIC) IVPB 400 MG in IV NORMAL SALINE 50ML 50 ML IV SCH (21:08)
[2020-11-24] VITALS (24 sets, daily range): BP systolic 96–116; BP diastolic 53–60
[2020-11-24] MEDS: MILRINONE 20MG/100ML PREMIX 100 ML IV PRN ×2 (02:09→22:17)
[2020-11-24] MEDS: MIDAZOLAM 100mg/100ml NS BAG 100 ML IV PRN ×2 (02:09→18:33)
--- NOTE | 2020-11-24 05:38 | RAD ---
AP portable chest radiograph 11/24/2020 Clinical History: Respiratory failure. An AP erect portable digital radiograph of the chest was obtained. Comparison study is dated 11/18/2020. The ET tube, right internal jugular central venous catheter and left internal jugular large bore cent ral venous catheter along the right arm PICC are unchanged in position. The patient is post median st ernotomy. The cardiac silhouette is mildly enlarged. The thoracic aorta is mildly tortuous. Bilateral perihilar infiltrates are seen which has improved. No pneumothorax or large pleural effusion is seen . The osseous structures are unchanged. Impression: Interval improvement in the bilateral perihilar infiltrates. Electronically signed by: Sergo Chapman MD (11/24/2020 5:36 AM) [id number]
[2020-11-24] MEDS: HYDROCORTISONE SOD SUCC/PF 100 MG/2 ML VIAL. IVP SCH ×3 (05:50→21:14)
[2020-11-24 06:40] LABS: CALCIUM 8.6 mg/dL (8.5-10.1); CREATININE 1.7 mg/dL (0.6-1.0); GFR 40.5; POTASSIUM 3.4 mmol/L (3.5-5.1)
[2020-11-24] MEDS: IPRATRPIUM/ALBUTEROL 0.5/2.5MG 3 ML NEBU. NEB SCH ×4 (07:21→20:28)
[2020-11-24] MEDS: BUDESONIDE 0.5 MG/2 ML NEBU. NEB SCH ×2 (07:21→20:28)
[2020-11-24 07:33] LABS: BASE EXCESS ABG 3 mmol/L (-3-3); HCO3 ABG 27 mmol/L (21-28); PCO2 ABG 34 mmHg (35-46); PO2 ABG 132 mmHg (75-108); SAT O2 ABG 99 % (92-99)
[2020-11-24 07:36] LABS: FIO2 ABG 35%+5
--- NOTE | 2020-11-24 07:59 | PDOC ---
[facility] PROGRESS NOTE Date of Service DOS: DATE: 11/24/20 TIME: 07:50 Chief Complaint Chief Complaint Multifactorial respiratory failure with severe heart failure (15% ejection fraction but was 60% just a few months ago) Status post intubation yesterday Sepsis Colitis Severe lactic acidosis Pneumonia Lactic acidosis Severe symptomatic hypoglycemia KENNETH due to vasomotor nephropathy Acute volume overload Coagulopathy History of atrial fibrillation/atrial flutter Secondary cor pulmonale due to pulmonary hypertension Anemia of chronic disease History of Present Illness History of Present Illness 11/24/2020 Afebrile. On vent, FiO2 35%, PEEP 5. No acute events overnight. Continue supportive care. Continue daptomycin, meropenem, micafungin, Zyvox. HD per nephrology. 11/23/2020 Patient seen in ICU. She remains intubated and sedated, FiO2 35%, PEEP 5. SAMMY was attempted but unsuccessful; plans to repeat SAMMY when extubated. Continue Dapto, meropenem, micafungin, and Zyvox, per ID 11/22/2020 Patient seen in ICU. On vent, FiO2 35%, PEEP 5. Afebrile. Receiving hemodialysis this morning. Plan for heart cath today. Discussed with RN. 11/21/2020 Patient seen and evaluated in ICU. Intubated on vent with FiO2 35%, PEEP 5. She is to have right heart cath today. Continue IV antibiotics, per ID. Charts and labs reviewed, discussed with RN. 11/20/2020 Patient seen and examined in the ICU She is still on the vent Assist-control/16/400/40 percent with 6 of PEEP She is off the pressors today She is oxygenating a little bit better Discussed with farmworker bulbs considering right heart cath tomorrow On Tranexamic acid qtt per oncologist 11/19/2020 Patient seen and examined in the ICU She remains intubated Assist-control/16/400/40 percent with 6 of PEEP Is currently in A. fib Also on CRRT Chart reviewed Discussed with RN She remains extremely critically ill 11/18/2020 Patient seen and examined in the ICU She is now intubated Ejection fraction noted to be 15% She is extremely critically ill volume overloaded desatting to 78% despite being on 80% FiO2 on the vent Her mom is present I spent quite a bit of time discussing the case with her and escorted her to the [facility] where she wants to pray Discussed with RN Discussed with case management Chart reviewed Patient is on assist-control//400/80 percent FiO2 with 8 of PEEP We are considering starting CRRT this afternoon She is sedated with Versed fentanyl and Also has Levophed and vasopressin running On IV Zyvox Extremely critically ill 11/16/2020 Patient seen and examined in the ICU CT abdomen reviewed looks like she has some possible colitis Lactic acid has decreased from 22 down to 8 Discussed with RN Discussed with case management Chart reviewed Vitals/I&O Vitals/I&O: Vital Signs Date Time Temp Pulse Resp B/P (MAP) Pulse Ox O2 Delivery O2 Flow Rate FiO2 11/24/20 07:38 100 Ventilator 11/24/20 07:00 75 20 102/56 (71) 11/24/20 04:00 98.9 98.9 11/23/20 20:21 6.0 I & O 11/23/20 11/23/20 11/24/20 15:00 23:00 07:00 Intake Total 370 ml 1521.0 ml 842 ml Output Total 250 ml 70 ml 65 ml Balance 120 ml 1451.0 ml 777 ml Physical Exam Physical Exam: GENERAL: Intubated/sedated HEENT ETT/OGT tube present Neck Right IJ, left HDC, clean LUNGS: Bibasilar Rales HEART: Irregular. Murmur present ABDOMEN: Mildly distended hypoactive bowel sounds EXTREMITIES: Generalized anasarca NEUROLOGIC: Intubated right femoral arterial line present DERM few areas of bruising present General: Other (Sedated and intubated) Heart: Other (Irregular rhythm, PSM left lower PSB) Lungs: Clear Abdomen: Normal bowel sounds, Other (Minimal OG output) Extremities: No cyanosis, No edema Skin: No rashes, No breakdown Labs Labs: Laboratory Tests Test 11/23/20 08:00 11/24/20 05:40 11/24/20 07:25 O2 Saturation 98 % (92-99) 99 % (92-99) Arterial Blood pH 7.43 (7.35-7.45) 7.51 (7.35-7.45) Arterial Blood pCO2 at Patient Temp 27 mmHg (35-46) 34 mmHg (35-46) Arterial Blood pO2 at Patient Temp 125 mmHg (75-108) 132 mmHg (75-108) Arterial Blood HCO3 17 mmol/L (21-28) 27 mmol/L (21-28) Arterial Blood Base Excess -6 mmol/L (-3-3) 3 mmol/L (-3-3) FiO2 35% vent 35%+5 Sodium Level 135 mmol/L (136-145) Potassium Level 3.4 mmol/L (3.5-5.1) Chloride Level 99 mmol/L (98-107) Carbon Dioxide Level 26 mmol/L (21-32) Anion Gap 10 (6-14) Blood Urea Nitrogen 38 mg/dL (7-20) Creatinine 1.7 mg/dL (0.6-1.0) Estimated GFR (Cockcroft-Gault) 40.5 Glucose Level 154 mg/dL (70-99) Calcium Level 8.6 mg/dL (8.5-10.1) Assessment and Plan Assessmemt and Plan Problems Medical Problems: (1) KENNETH (acute kidney injury) Status: Acute (2) Atrial fibrillation with RVR Status: Acute (3) CHF (congestive heart failure) Status: Acute (4) Hypoglycemia Status: Acute (5) Pneumonia Status: Acute Comment Review of Relevant I have reviewed the following items josé (where applicable) has been applied. Medications: Current Medications Medications (Trade) Dose Ordered Sig/Kailey Route PRN Reason Start Time Stop Time Status Last Admin Dose Admin Daptomycin 400 mg/ Sodium Chloride 50 ml @ 100 mls/hr Q48H IV 11/23/20 21:00 11/23/20 21:08 Meropenem 500 mg/ Sodium Chloride 50 ml @ 100 mls/hr DAILY IV 11/23/20 09:00 11/23/20 09:00 Milrinone Lactate/ Dextrose 100 ml @ 8.786 mls/ hr CONT PRN IV SEE I/O RECORD 11/23/20 10:15 11/24/20 02:09 Furosemide (Lasix) 40 mg 1X ONCE IVP 11/23/20 10:30 11/23/20 10:31 DC 11/23/20 10:30 Metoprolol Tartrate (Lopressor) 25 mg BID PO 11/23/20 14:00 11/23/20 21:08 Justifications for Admission Other Justification chf exacerbation ANGÉLICA RICHTER MD Nov 24, 2020 07:59
[2020-11-24] MEDS: PANTOPRAZOLE IV PUSH 40 MG VIAL. IVP SCH (08:40)
[2020-11-24] MEDS: METOPROLOL TART IMMED RELEASE 25 MG TABLET. PO SCH ×3 (08:41→21:13)
[2020-11-24] MEDS: THIAMINE 100 MG TABLET. PO SCH ×4 (08:41→21:13)
[2020-11-24] MEDS: GABAPENTIN 300 MG CAPSULE. PO SCH ×3 (08:41→21:13)
[2020-11-24] MEDS: FUROSEMIDE 40 MG/4 ML VIAL. IVP SCH (08:41)
[2020-11-24] MEDS: CITALOPRAM 20 MG TABLET. PO SCH ×2 (08:42→09:00)
[2020-11-24] MEDS: MEROPENEM 500 MG in IV NORMAL SALINE 50ML 50 ML IV SCH (08:42)
[2020-11-24] MEDS: FLUTICASONE 50MCG/NASAL SPRAY 16GM BOTTLE. NS SCH (08:42)
--- NOTE | 2020-11-24 09:58 | PDOC ---
PULMONARY PROGRESS NOTES DATE: 11/24/20 TIME: 09:56 Subjective Patient intubated 11/17 remains on vent support 35%/5 sedated on versed and fent No other concerns overnight Vitals Vital Signs Date Time Temp Pulse Resp B/P (MAP) Pulse Ox O2 Delivery O2 Flow Rate FiO2 11/24/20 08:41 77 111/57 11/24/20 07:38 100 Ventilator 11/24/20 07:00 20 11/24/20 04:00 98.9 98.9 11/23/20 20:21 6.0 Comments Intubated Lungs: Clear Cardiovascular: S1, S2 Abdomen: Soft Neuro Exam: Alert Extremities: No Edema Skin: Warm, Dry Labs Laboratory Tests Test 11/22/20 10:35 11/23/20 05:45 11/23/20 08:00 11/24/20 05:40 White Blood Count 15.9 x10^3/uL (4.0-11.0) 17.7 x10^3/uL (4.0-11.0) Red Blood Count 4.08 x10^6/uL (3.50-5.40) 4.12 x10^6/uL (3.50-5.40) Hemoglobin 7.9 g/dL (12.0-15.5) 8.0 g/dL (12.0-15.5) Hematocrit 26.2 % (36.0-47.0) 26.8 % (36.0-47.0) Mean Corpuscular Volume 64 fL (79-100) 65 fL (79-100) Mean Corpuscular Hemoglobin 19 pg (25-35) 20 pg (25-35) Mean Corpuscular Hemoglobin Concent 30 g/dL (31-37) 30 g/dL (31-37) Red Cell Distribution Width 25.9 % (11.5-14.5) 26.1 % (11.5-14.5) Platelet Count 85 x10^3/uL (140-400) 85 x10^3/uL (140-400) Neutrophils (%) (Auto) 84 % (31-73) 83 % (31-73) Lymphocytes (%) (Auto) 10 % (24-48) 10 % (24-48) Monocytes (%) (Auto) 5 % (0-9) 7 % (0-9) Eosinophils (%) (Auto) 0 % (0-3) 0 % (0-3) Basophils (%) (Auto) 0 % (0-3) 0 % (0-3) Neutrophils # (Auto) 13.3 x10^3/uL (1.8-7.7) 14.7 x10^3/uL (1.8-7.7) Lymphocytes # (Auto) 1.6 x10^3/uL (1.0-4.8) 1.8 x10^3/uL (1.0-4.8) Monocytes # (Auto) 0.9 x10^3/uL (0.0-1.1) 1.2 x10^3/uL (0.0-1.1) Eosinophils # (Auto) 0.0 x10^3/uL (0.0-0.7) 0.0 x10^3/uL (0.0-0.7) Basophils # (Auto) 0.0 x10^3/uL (0.0-0.2) 0.1 x10^3/uL (0.0-0.2) Segmented Neutrophils % 82 % (35-66) Band Neutrophils % 2 % (0-9) Lymphocytes % 10 % (24-48) Monocytes % 6 % (0-10) Nucleated Red Blood Cells 4 Platelet Estimate Decreased (ADEQUATE) Large Platelets Present Hypochromasia Mod Anisocytosis Mod Microcytosis Mod Ovalocytes Few Prothrombin Time 17.2 SEC (11.7-14.0) Prothromb Time International Ratio 1.4 (0.8-1.1) Sodium Level 136 mmol/L (136-145) 135 mmol/L (136-145) 135 mmol/L (136-145) Potassium Level 4.2 mmol/L (3.5-5.1) 4.6 mmol/L (3.5-5.1) 3.4 mmol/L (3.5-5.1) Chloride Level 100 mmol/L (98-107) 100 mmol/L (98-107) 99 mmol/L (98-107) Carbon Dioxide Level 24 mmol/L (21-32) 20 mmol/L (21-32) 26 mmol/L (21-32) Anion Gap 12 (6-14) 15 (6-14) 10 (6-14) Blood Urea Nitrogen 14 mg/dL (7-20) 41 mg/dL (7-20) 38 mg/dL (7-20) Creatinine 0.7 mg/dL (0.6-1.0) 1.9 mg/dL (0.6-1.0) 1.7 mg/dL (0.6-1.0) Estimated GFR (Cockcroft-Gault) 112.7 35.6 40.5 Glucose Level 133 mg/dL (70-99) 127 mg/dL (70-99) 154 mg/dL (70-99) Calcium Level 8.7 mg/dL (8.5-10.1) 8.7 mg/dL (8.5-10.1) 8.6 mg/dL (8.5-10.1) Magnesium Level 2.6 mg/dL (1.8-2.4) 2.7 mg/dL (1.8-2.4) Phosphorus Level 5.2 mg/dL (2.6-4.7) O2 Saturation 98 % (92-99) Arterial Blood pH 7.43 (7.35-7.45) Arterial Blood pCO2 at Patient Temp 27 mmHg (35-46) Arterial Blood pO2 at Patient Temp 125 mmHg (75-108) Arterial Blood HCO3 17 mmol/L (21-28) Arterial Blood Base Excess -6 mmol/L (-3-3) FiO2 35% vent Test 11/24/20 07:25 O2 Saturation 99 % (92-99) Arterial Blood pH 7.51 (7.35-7.45) Arterial Blood pCO2 at Patient Temp 34 mmHg (35-46) Arterial Blood pO2 at Patient Temp 132 mmHg (75-108) Arterial Blood HCO3 27 mmol/L (21-28) Arterial Blood Base Excess 3 mmol/L (-3-3) FiO2 35%+5 Laboratory Tests Test 11/24/20 05:40 11/24/20 07:25 Sodium Level 135 mmol/L (136-145) Potassium Level 3.4 mmol/L (3.5-5.1) Chloride Level 99 mmol/L (98-107) Carbon Dioxide Level 26 mmol/L (21-32) Anion Gap 10 (6-14) Blood Urea Nitrogen 38 mg/dL (7-20) Creatinine 1.7 mg/dL (0.6-1.0) Estimated GFR (Cockcroft-Gault) 40.5 Glucose Level 154 mg/dL (70-99) Calcium Level 8.6 mg/dL (8.5-10.1) O2 Saturation 99 % (92-99) Arterial Blood pH 7.51 (7.35-7.45) Arterial Blood pCO2 at Patient Temp 34 mmHg (35-46) Arterial Blood pO2 at Patient Temp 132 mmHg (75-108) Arterial Blood HCO3 27 mmol/L (21-28) Arterial Blood Base Excess 3 mmol/L (-3-3) FiO2 35%+5 Medications Active Scripts Medications Dose Route/Sig Max Daily Dose Days Date Category Amiodarone Hcl 200 Mg Tablet 200 Mg PO DAILY 30 09/29/20 Rx Eliquis (Apixaban) 5 Mg Tablet 5 Mg PO BID 30 09/29/20 Rx Doxycycline Hyclate 100 Mg Tablet 100 Mg PO BID 5 09/29/20 Rx Klor-Con M20 (Potassium Chloride) 20 Meq Tab.er.prt 20 Meq PO DAILYWBKFT 30 09/29/20 Rx Furosemide 40 Mg Tablet 40 Mg PO DAILY 30 09/29/20 Rx Omeprazole 20 Mg Capsule.dr 1 Cap PO DAILY 08/08/20 Reported Metoprolol Tartrate 25 Mg Tablet 1 Tab PO BID 12/20/14 Reported Feosol (Ferrous Sulfate) 325 Mg Tablet 325 Mg PO DAILY 12/20/14 Reported Aspirin 325 Mg Tablet 1 Tab PO DAILY 12/20/14 Reported Amitriptyline Hcl 50 Mg Tablet 1 Tab PO QHS 12/17/14 Reported Ultram (Tramadol Hcl) 50 Mg Tablet 1 Tab PO Q6HRS PRN 11/01/14 Reported Dulera 100 Mcg/5 Mcg Inhaler (Mometasone/Formoterol) 13 Gm Hfa.aer.ad 2 Puff IH BID 11/01/14 Reported Lidoderm (Lidocaine) 700 Mg Adh..patch 1 Patch TP DAILY PRN 11/01/14 Reported Neurontin (Gabapentin) 300 Mg Capsule 2 Cap PO BID 11/01/14 Reported Flonase (Fluticasone Propionate) 16 Gm [place].susp 2 [place] NS DAILY 11/01/14 Reported Cyclobenzaprine Hcl 10 Mg Tablet 1 Tab PO TID PRN 11/01/14 Reported Celexa (Citalopram Hydrobromide) 40 Mg Tablet 1 Tab PO DAILY 11/01/14 Reported Cetirizine Hcl 10 Mg Tablet 1 Tab PO DAILY 11/01/14 Reported Proair Hfa Inhaler (Albuterol Sulfate) 8.5 Gm Hfa.aer.ad 2 Puff IH PRN Q4-6HRS 11/01/14 Reported Comments CXR IMPRESSION: 1. New left internal jugular temporary dialysis catheter in acceptable position. Otherwise stable support lines and tubes 2. Increasing pulmonary infiltrates and small right pleural effusion Impression . IMPRESSION: 1. Acute hypoxemic respiratory failure multifactorial 2. Shock, likely combination of Cardiogenic (EF15%), Septic 3. Possible pneumonia, gram-negative, gram-positive. Chest x-ray abnormal suspect combination of pulmonary edema and pneumonia 4. Acute kidney injury. 5. Colitis seen on CT abdomen and pelvis 6. Atrial fibrillation/atrial flutter. 7. Acute on chronic heart failure. 8. Bilateral pleural effusions. 9. History of ASD, status post closure. 10. Chronic obstructive pulmonary disease with exacerbation. 11. [id number] cor pulmonale. 12. Severe metabolic acidosis 13. coagulopathy 14. Acute kidney injury 15. Acute liver failure 16. Positive urine drug screen 17. Cardiomyopathy ejection fraction of 15% Plan . Continue current support with assist control ventilation Fi02 35%/ PEEP of 5 D/C sedation and proceed with sedation vacation and pressure support trial Follow CXR/ABG- no changes today COVID-19 negative Follow hematology recs ---- INR improved Follow nephrology recs-- HD Antibiotics per infectious disease service Follow cardiology input patient echocardiogram revealed ejection fraction 15%, and Afib now off A/C-- S/P cardiac Cath and SAMMY on 11/22-- no intervention-- see report, now on primacor Follow surgery recs--- no surgical plans at this time Nutritional support DVT/GI PPX : SCDS/protonix D/W RN and RT critically ill Total cumulative critical care time from 30 minutes KATHRYN CULVER MD Nov 24, 2020 09:58
--- NOTE | 2020-11-24 10:22 | PDOC ---
DATE OF SERVICE DATE: 11/24/20 TIME: 10:19 SUBJECTIVE ROS stable, remains Intubated OBJECTIVE Vital Signs Vital Signs Date Time Temp Pulse Resp B/P (MAP) Pulse Ox O2 Delivery O2 Flow Rate FiO2 11/24/20 08:41 77 111/57 11/24/20 07:38 100 Ventilator 11/24/20 07:00 20 11/24/20 04:00 98.9 98.9 11/23/20 20:21 6.0 I & 0 Intake and Output 11/24/20 07:00 Intake Total 2733.0 ml Output Total 385 ml Balance 2348.0 ml IV Total 1044.0 ml Tube Feeding 1126 ml Other 563 ml Output Urine Total 385 ml PHYSICAL EXAM Physical Exam General: Intubated, sedated HEENT: OG, EG + Neck supple Lungs: diminished bases Heart: S1S2 Abdomen: Soft, Extremities: Trace Bilat LE edema + Neuro: sedated, intubated Sky + Skin No rash DIAGNOSIS/ASSESSMENT Assessment & Plan KENNETH - Oligoanuric , ATN , Taken off CRRT (was initiated on 11/18) for cardiac cath on 11/22, hemodynamically stable, switched to HD tolerated , UF today CT scan 11/21 Multiple wedge-shaped hypodense areas are seen within both kidneys consistent with bilateral renal infarcts or pyelonephritis.Was hypotensive on multiple pressors for long duration, Hx of ASD Supportive care, Strict I/O, monitor , replace E-Lytes as indicated . Received Contrast on 11/22 - Lt heart cath HypoKalemia- replace Abdominal pain POA - GS signed off Sepsis- elevated Lactic acid Metabolic acidosis POA- 11/08 Lactic acidosis, HD today Elevated LFT's Acute respiratory failure - Intubated, sedated . Rt Heart cath - elevated left-sided and right sided filling pressures consistent with her diagnosis of acute on chronic combined systolic and diastolic heart failure. Valvular insufficiency: notable for moderate MR and mod to severe TR Hx of of open ASD closure: 2014. Severe symptomatic hypoglycemia POA History of atrial fibrillation/atrial flutter Secondary cor pulmonale due to pulmonary hypertension Anemia of chronic disease- Fe def , Tsat 4, Defer to primary Pulm HTN - s/p Rt heart cath COMMENT/RELEVANT DATA Meds Current Medications Medications (Trade) Dose Ordered Sig/Kailey Start Time Stop Time Status Last Admin Dose Admin Acetaminophen (Tylenol) 650 mg PRN Q4HRS PRN 11/15/20 16:15 11/23/20 08:39 650 MG Albumin Human 200 ml @ 200 mls/hr 1X PRN PRN 11/23/20 13:15 11/23/20 19:14 DC Albuterol/ Ipratropium (Duoneb) 3 ml RTQID 11/17/20 09:00 11/24/20 07:21 3 ML Amiodarone HCl (Cordarone) 200 mg DAILY 11/16/20 09:00 11/15/20 16:38 DC Aspirin (Tatianna Aspirin) 325 mg DAILY 11/16/20 09:00 11/15/20 16:38 DC Bisacodyl (Dulcolax Supp) 10 mg PRN DAILY PRN 11/23/20 12:30 Budesonide (Pulmicort) 0.5 mg RTBID 11/17/20 09:00 11/24/20 07:21 0.5 MG Calcium Carbonate/ Glycine (Tums) 1,000 mg PRN Q4HRS PRN 11/16/20 21:30 11/16/20 21:37 1,000 MG Calcium Gluconate 1000 mg/Sodium Chloride 110 ml @ 220 mls/hr 1X ONCE 11/17/20 17:15 11/17/20 17:44 DC 11/17/20 17:36 220 MLS/HR Cefepime HCl (Maxipime) 2 gm Q24H 11/15/20 17:00 11/17/20 11:51 DC 11/16/20 16:30 2 GM Chlorhexidine Gluconate (Peridex) 15 ml BID 11/17/20 21:00 11/19/20 20:39 DC 11/19/20 09:00 15 ML Citalopram Hydrobromide (CeleXA) 40 mg DAILY 11/16/20 09:00 11/24/20 08:42 40 MG Daptomycin 390 mg/ Sodium Chloride 50 ml @ 100 mls/hr Q48H 11/20/20 13:00 11/18/20 16:23 DC Daptomycin 400 mg/ Sodium Chloride 50 ml @ 100 mls/hr Q48H 11/23/20 21:00 11/23/20 21:08 100 MLS/HR Daptomycin 500 mg/ Sodium Chloride 50 ml @ 100 mls/hr Q48H 11/19/20 21:00 11/22/20 15:52 DC 11/21/20 20:46 100 MLS/HR Dextrose (Dextrose 50%-Water Syringe) 12.5 gm PRN Q15MIN PRN 11/15/20 16:15 Dextrose/Sodium Chloride 1,000 ml @ 50 mls/hr Q20H 11/15/20 16:00 11/19/20 17:06 DC 11/17/20 09:28 50 MLS/HR Digoxin (Lanoxin) 500 mcg 1X ONCE 11/17/20 15:30 11/17/20 15:31 DC 11/17/20 15:43 500 MCG Docusate Sodium (Colace) 100 mg PRN DAILY PRN 11/15/20 16:15 Epinephrine HCl 10 mg/Sodium Chloride 250 ml @ 11.85 mls/ hr CONT PRN 11/17/20 17:30 11/17/20 22:09 47.4 MLS/HR Epinephrine HCl 5 mg/Sodium Chloride 255 ml @ 24.266 mls/ hr CONT PRN 11/17/20 14:45 11/17/20 20:00 DC 11/17/20 19:44 121.328 MLS/HR Etomidate (Amidate) 12 mg 1X ONCE 11/17/20 14:15 11/17/20 14:16 DC 11/17/20 14:15 12 MG Fentanyl Citrate 55 ml @ 0 mls/hr CONT PRN PRN 11/19/20 21:00 11/23/20 19:51 3 MLS/HR Fentanyl Citrate (Fentanyl 2ml Vial) 50 mcg PRN Q1HR PRN 11/17/20 14:00 Fluticasone Propionate (Flonase) 2 spray DAILY 11/16/20 09:00 11/17/20 08:37 2 SPRAY Furosemide (Lasix) 40 mg DAILY 11/24/20 09:00 11/24/20 08:41 40 MG Gabapentin (Neurontin) 600 mg BID 11/15/20 21:00 11/24/20 08:41 600 MG Heparin Sodium (Porcine) (Heparin Sodium) 5,000 unit Q12HR 11/15/20 21:00 11/15/20 16:17 DC Heparin Sodium/ Sodium Chloride 500 ml @ As Directed STK-MED ONCE 11/22/20 11:33 11/22/20 11:34 DC Hydrocortisone Sodium Succinate (Solu-CORTEF) 100 mg Q8HRS 11/17/20 22:00 11/24/20 05:50 100 MG Info (PHARMACY MONITORING -- do not chart) 1 each PRN DAILY PRN 11/23/20 13:15 Info (Tpn Per Pharmacy) 1 each PRN DAILY PRN 11/21/20 11:45 UNV Iodixanol (Visipaque 320) 100 ml STK-MED ONCE 11/22/20 11:33 11/22/20 11:33 DC Lidocaine HCl (Buffered Lidocaine 1%) 6 ml 1X ONCE 11/18/20 09:45 11/18/20 09:46 DC 11/18/20 09:53 5 ML Lidocaine HCl (Lidocaine 1% 20ml Vial) 20 ml STK-MED ONCE 11/22/20 11:33 11/22/20 11:33 DC Lidocaine HCl (Xylocaine 2% Topical 5gm Tube) 5 makenna STK-MED ONCE 11/16/20 12:00 11/17/20 15:35 DC Lidocaine HCl (Xylocaine-Mpf 1% 2ml Vial) 2 ml 1X ONCE 11/17/20 12:00 11/17/20 12:07 DC Linezolid/Dextrose 300 ml @ 300 mls/hr Q12HR 11/17/20 18:00 11/24/20 08:42 300 MLS/HR Meropenem 1 gm/ Sodium Chloride 100 ml @ 200 mls/hr Q12HR 11/18/20 21:00 11/22/20 15:50 DC 11/21/20 21:22 200 MLS/HR Meropenem 500 mg/ Sodium Chloride 50 ml @ 100 mls/hr DAILY 11/23/20 09:00 11/24/20 08:42 100 MLS/HR Metoprolol Tartrate (Lopressor) 25 mg BID 11/23/20 14:00 11/24/20 08:41 25 MG Metronidazole 100 ml @ 100 mls/hr Q12HR 11/15/20 21:00 11/17/20 11:51 DC 11/17/20 08:41 100 MLS/HR Micafungin Sodium 100 mg/Dextrose 100 ml @ 100 mls/hr Q24H 11/17/20 12:30 11/23/20 12:30 100 MLS/HR Midazolam HCl 100 ml @ 0 mls/hr CONT PRN 11/17/20 14:00 11/24/20 02:09 6 MLS/HR Milrinone Lactate/ Dextrose 100 ml @ 8.786 mls/ hr CONT PRN 11/23/20 10:15 11/24/20 02:09 5.9 MLS/HR Morphine Sulfate (Morphine Sulfate) 4 mg PRN Q1HR PRN 11/17/20 14:00 Norepinephrine Bitartrate 32 mg/ Dextrose 250 ml @ 3.703 mls/ hr CONT PRN 11/17/20 13:30 11/18/20 03:50 14.813 MLS/HR Norepinephrine Bitartrate 8 mg/ Dextrose 258 ml @ 15.344 mls/ hr CONT PRN 11/17/20 11:15 11/17/20 14:30 DC 11/17/20 11:32 14.8 MLS/HR Ondansetron HCl (Zofran) 4 mg PRN Q6HRS PRN 11/15/20 16:15 Pantoprazole Sodium (PROTONIX VIAL for IV PUSH) 40 mg DAILYAC 11/18/20 07:30 11/24/20 08:40 40 MG Pantoprazole Sodium (Protonix) 40 mg DAILYAC 11/16/20 07:30 11/17/20 14:53 DC 11/17/20 08:36 40 MG Phenylephrine HCl 50 mg/Sodium Chloride 255 ml @ 12.133 mls/ hr CONT PRN 11/17/20 13:30 Piperacillin Sod/ Tazobactam Sod 3.375 gm/Sodium Chloride 50 ml @ 100 mls/hr 1X ONCE 11/15/20 13:00 11/15/20 13:29 DC 11/15/20 13:05 100 MLS/HR Potassium Chloride 15 meq/ Bicarbonate Dialysis Soln w/ out KCl 5,007.5 ml @ 1,250 mls/ hr Q4H1M 11/18/20 11:00 11/23/20 21:49 DC 11/22/20 07:35 1,250 MLS/HR Potassium Chloride/Water 100 ml @ 100 mls/hr 1X ONCE 11/22/20 10:00 11/22/20 10:59 DC 11/22/20 09:35 100 MLS/HR Potassium Chloride (Klor-Con) 60 meq 1X ONCE 11/16/20 14:00 11/16/20 14:01 DC 11/16/20 14:06 60 MEQ Prothrombin Complex Concent (Human) 2000 unit/ Miscellaneous 80 ml @ 160 mls/hr 1X ONCE 11/18/20 14:30 11/18/20 14:59 DC 11/18/20 14:48 160 MLS/HR Ringer's Solution 1,000 ml @ 1,000 mls/hr Q1H ONCE 11/17/20 14:00 11/17/20 14:59 DC 11/17/20 15:45 1,000 MLS/HR Sennosides (Senna) 17.2 mg PRN BID PRN 11/15/20 16:15 Sodium Bicarbonate 150 meq/Dextrose 1,150 ml @ 125 mls/hr Q9H12M ONCE 11/17/20 11:30 11/17/20 20:41 DC 11/17/20 11:26 125 MLS/HR Sodium Bicarbonate (Sodium Bicarb Adult 8.4% Syr) 100 meq 1X ONCE 11/17/20 14:15 11/17/20 14:16 DC 11/17/20 14:15 100 MEQ Sodium Chloride 1,000 ml @ 1,000 mls/hr Q1H PRN 11/23/20 13:15 11/23/20 19:14 DC Sodium Phosphate 15 mmol/Sodium Chloride 105 ml @ 105 mls/hr 1X ONCE 11/22/20 10:00 11/22/20 10:59 DC 11/22/20 10:40 105 MLS/HR Sodium Phosphate 20 mmol/Sodium Chloride 256.6667 ml @ 64.167 m... 1X ONCE 11/21/20 01:00 11/21/20 04:59 DC 11/21/20 00:54 64.167 MLS/HR Succinylcholine Chloride (Anectine) 100 mg 1X ONCE 11/17/20 14:15 11/17/20 14:16 DC 11/17/20 14:15 100 MG Thiamine Mononitrate (Vitamin B-1) 300 mg TID 11/17/20 14:00 11/24/20 08:41 300 MG Thiamine HCl 300 mg/Dextrose 53 ml @ 102 mls/hr Q8HRS 11/15/20 22:00 11/17/20 09:46 DC 11/17/20 06:17 102 MLS/HR Tranexamic Acid 50 ml @ 50 mls/hr Q12HR 11/18/20 13:00 11/23/20 16:00 DC 11/23/20 08:40 50 MLS/HR Vancomycin HCl (Vanco Per Pharmacy) 1 each PRN DAILY PRN 11/15/20 16:15 11/16/20 11:05 DC Vancomycin HCl 2 gm/Sodium Chloride 500 ml @ 250 mls/hr 1X ONCE 11/15/20 13:00 11/15/20 14:59 DC 11/15/20 13:37 250 MLS/HR Vasopressin 20 unit/Dextrose 101 ml @ 12 mls/hr CONT PRN 11/17/20 13:30 UNV Vecuronium [place] (Norcuron Bolus) 6 mg PRN Q2HR PRN 11/17/20 20:00 11/17/20 22:11 6 MG Lab Laboratory Tests Test 11/24/20 05:40 11/24/20 07:25 Sodium Level 135 mmol/L (136-145) Potassium Level 3.4 mmol/L (3.5-5.1) Chloride Level 99 mmol/L (98-107) Carbon Dioxide Level 26 mmol/L (21-32) Anion Gap 10 (6-14) Blood Urea Nitrogen 38 mg/dL (7-20) Creatinine 1.7 mg/dL (0.6-1.0) Estimated GFR (Cockcroft-Gault) 40.5 Glucose Level 154 mg/dL (70-99) Calcium Level 8.6 mg/dL (8.5-10.1) O2 Saturation 99 % (92-99) Arterial Blood pH 7.51 (7.35-7.45) Arterial Blood pCO2 at Patient Temp 34 mmHg (35-46) Arterial Blood pO2 at Patient Temp 132 mmHg (75-108) Arterial Blood HCO3 27 mmol/L (21-28) Arterial Blood Base Excess 3 mmol/L (-3-3) FiO2 35%+5 Results All relevant outside records, renal labs, imaging studies, telemetry/EKG's were reviewed. Justicifation of Admission Dx: Justifications for Admission: Justification of Admission Dx: Yes CHF: Cardiac Arrhythmias FRANCO SETHI MD Nov 24, 2020 10:21
--- NOTE | 2020-11-24 10:38 | PDOC ---
Infectious Disease Note Subjective: Subjective Patient intubated /sedated off pressors on midodrine awaiting dialysis Discussed with RN Vital Signs: Vital Signs Vital Signs Date Time Temp Pulse Resp B/P (MAP) Pulse Ox O2 Delivery O2 Flow Rate FiO2 11/24/20 10:00 85 20 112/58 (76) 100 Ventilator 11/24/20 08:00 98.7 98.7 11/23/20 20:21 6.0 Physical Exam: PHYSICAL EXAM GENERAL: Intubated/sedated HEENT ETT/OGT tube present Neck Right IJ, left HDC, clean LUNGS: Bibasilar Rales HEART: Irregular. Murmur present ABDOMEN: Mildly distended hypoactive bowel sounds EXTREMITIES: Generalized anasarca NEUROLOGIC: Intubated right femoral arterial line present DERM few areas of bruising present Medications: Inpatient Meds: Medications reviewed. Labs: Lab Laboratory Tests Test 11/24/20 05:40 11/24/20 07:25 Sodium Level 135 mmol/L (136-145) Potassium Level 3.4 mmol/L (3.5-5.1) Chloride Level 99 mmol/L (98-107) Carbon Dioxide Level 26 mmol/L (21-32) Anion Gap 10 (6-14) Blood Urea Nitrogen 38 mg/dL (7-20) Creatinine 1.7 mg/dL (0.6-1.0) Estimated GFR (Cockcroft-Gault) 40.5 Glucose Level 154 mg/dL (70-99) Calcium Level 8.6 mg/dL (8.5-10.1) O2 Saturation 99 % (92-99) Arterial Blood pH 7.51 (7.35-7.45) Arterial Blood pCO2 at Patient Temp 34 mmHg (35-46) Arterial Blood pO2 at Patient Temp 132 mmHg (75-108) Arterial Blood HCO3 27 mmol/L (21-28) Arterial Blood Base Excess 3 mmol/L (-3-3) FiO2 35%+[address]: No enlarged thoracic lymphadenopathy is evident. No focal aneurysmal dilatation of the thoracic aorta is seen. Cardiomegaly is evident. No pericardial effusion is seen. Small left-sided pleural effusion and moderate size right-sided pleural effusion is seen. Bilateral lung infiltrates are seen most consolidative within the right lower lobe and left lower lobe. Left lower lobe is almost completely consolidated. Some of this could be due to atelectasis given the narrowing of the left lower lobe bronchus. Additional groundglass lung infiltrates are apparent within the upper lobes bilaterally and to lesser extent within the right middle lobe. Atypical pneumonia such as Covid 19 pneumonia is certainly possible. No pneumothorax is seen. No lytic process is seen. IMPRESSION: Bilateral lung infiltrates more consolidative within both lower lobes. The left lower lobe is almost completely consolidated. Some of this on the left side could be due to atelectasis related to narrowing of the left lower lobe bronchus. Additional groundglass nodular lung infiltrates are seen bilaterally. Therefore, atypical pneumonia such as Covid 19 pneumonia is possible as well. Bilateral pleural effusions; moderate size on the right side mild on the left side. Cardiomegaly. Therefore, lung infiltrates and pleural effusions could be reflection of CHF as well. ABDOMEN AND PELVIS CT: The liver and spleen and pancreas are unremarkable on this noncontrast study. Dense bile is seen within the gallbladder which may represent biliary sludge or could be related to previous contrast study. No extra hepatic ductal dilatation is seen. No adrenal mass is evident. Contrast is seen within both kidneys. This is related to recent cardiac imaging. Multiple wedge-shaped hypodense areas of both kidneys are seen. This could be secondary to multiple renal infarcts or pyelonephritis. No perinephric fluid collection is seen otherwise. No hydronephrosis is evident on either side. Urinary bladder is decompressed by an indwelling Sky catheter. No focal aneurysmal dilatation of the abdominal aorta is seen. No bulky abdominal or pelvic lymphadenopathy is evident. Mild fecal retention is seen within the colon. There is mild dilatation of the right side of the colon. No obstructive bowel pattern is evident. NG tube tip is seen within the proximal body of the stomach. Stomach is not abnormally distended. There is a small amount of free fluid within the pelvis. Generalized anasarca of the soft tissues of the abdomen and pelvis and bilateral flanks is seen. No free air is apparent. A right groin catheter is seen extending into right external iliac artery or vein. No lytic process is evident. IMPRESSION: Multiple wedge-shaped hypodense areas are seen within both kidneys consistent with bilateral renal infarcts or pyelonephritis. No hydronephrosis. Small amount of ascites is seen within the pelvis. Generalized anasarca. Objective: Assessment: 1. Severe sepsis source likely GI 2. Leukocytosis and lactic acidosis. 3. Acute kidney injury with severe metabolic acidosis. 4. Abdominal pain, intermittent nausea.Colitis on CT abdomen, Gen surgery evaluated pt 5. Atrial fibrillation/flutter. 6. Acute on chronic congestive heart failure. 7. Valvular insufficiency. MR, severe TR, hepatic congestion 8. History of PFO cloure/ASD repair. 9. Acute respiratory failure status post intubation, CT chest noted 10. Pulmonary hypertension. 11. Coagulopathy. Thrombocytopenia 12. Abnormal liver function tests , hyperbilirubinemia 13. COVID-19 negative 14.UC negative, CT kidney infarcts KENNETH Plan: Plan of Care Continue Dapto, Merrem, Renal adjustment Cont micafungin ,zyvox Transesophageal echocardiogram attempted but was unsuccessful DC Rt groin line when able Cult remain nonrevealing Gen surgery has evaluated pt Monitor labs and cultures. Continue supportive care. Critically ill Prognosis very poor Discussed with nursing staff MEGAN MEHTA MD Nov 24, 2020 10:38
--- NOTE | 2020-11-24 11:33 | NUR ---
SS following up with discharge planning. SS reviewed pt chart and discussed with pt RN. Pt is currently on the vent at 35%. Full Code. Pt on IV Lasix and Milrinone drip. Pt on hemodialysis. Pt on IV Daptomycin, IV Meropenem, IV Zyvox, and IV Micafungin. Cardiology following. Not stable. SS will continue to follow for discharge planning.
--- NOTE | 2020-11-24 12:28 | PDOC ---
Date of Service: DATE: 11/24/20 TIME: 12:24 Objective: Objective: D/w nurse - vomited yesterday, held tube feeds, will retry later. No stools. Vital Signs: Vital Signs Date Time Temp Pulse Resp B/P (MAP) Pulse Ox O2 Delivery O2 Flow Rate FiO2 11/24/20 11:28 100 Ventilator 11/24/20 10:00 85 20 112/58 (76) 11/24/20 08:00 98.7 98.7 11/23/20 20:21 6.0 Labs: Laboratory Tests Test 11/24/20 05:40 11/24/20 07:25 Sodium Level 135 mmol/L Potassium Level 3.4 mmol/L Chloride Level 99 mmol/L Carbon Dioxide Level 26 mmol/L Anion Gap 10 Blood Urea Nitrogen 38 mg/dL Creatinine 1.7 mg/dL Estimated GFR (Cockcroft-Gault) 40.5 Glucose Level 154 mg/dL Calcium Level 8.6 mg/dL O2 Saturation 99 % Arterial Blood pH 7.51 Arterial Blood pCO2 at Patient Temp 34 mmHg Arterial Blood pO2 at Patient Temp 132 mmHg Arterial Blood HCO3 27 mmol/L Arterial Blood Base Excess 3 mmol/L FiO2 35%+5 Imaging: CXR 11/24 Impression: Interval improvement in the bilateral perihilar infiltrates. PE: GEN: intubated LUNGS: vent HEART: RRR ABD: soft, quiet BS NEURO/PSYCH: sedated A/P: NICM, resp failure, KENNETH COREEN, coagulopathy, elevated LFTs COVID negative 11/17 -- Check KUB considering vomiting. Labs in a.m. Continue PPI. Has suppository ordered PRN. Justicifation of Admission Dx: Justifications for Admission: Justification of Admission Dx: Yes CHF: Cardiac Arrhythmias EMILEE WRIGHT Nov 24, 2020 12:28
[2020-11-24] MEDS: fentaNYL HIGH DOSE PCA 55 ML IV PRN (13:32)
[2020-11-24] MEDS ORDERED: IV NORMAL SALINE 1000ML BAG 1,000 ML IV PRN ×2 (14:00)
[2020-11-24] MEDS ORDERED: ALBUMIN HUMAN 25% 200 ML IV PRN (14:00)
[2020-11-24] MEDS ORDERED: DIALYSIS PATIENT. MC PRN ×2 (14:00)
--- NOTE | 2020-11-24 14:16 | PDOC ---
MARI VIVAS ADMISSIONS ASSISTANT 11/24/20 1416: CARDIO Progress Notes Date and Time Date of Service 11/24/2020 Time of Evaluation 1350 Subjective Subjective: Other (intubated) Vitals Vitals Vital Signs Date Time Temp Pulse Resp B/P (MAP) Pulse Ox O2 Delivery O2 Flow Rate FiO2 11/24/20 13:32 22 100 Ventilator 11/24/20 10:00 85 112/58 (76) 11/24/20 08:00 98.7 98.7 11/23/20 20:21 6.0 Weight Weight [ ] Input and Output Intake and Output Intake and Output 11/24/20 07:00 Intake Total 2733.0 ml Output Total 385 ml Balance 2348.0 ml IV Total 1044.0 ml Tube Feeding 1126 ml Other 563 ml Output Urine Total 385 ml Laboratory Labs Laboratory Tests Test 11/24/20 05:40 11/24/20 07:25 Sodium Level 135 mmol/L (136-145) Potassium Level 3.4 mmol/L (3.5-5.1) Chloride Level 99 mmol/L (98-107) Carbon Dioxide Level 26 mmol/L (21-32) Anion Gap 10 (6-14) Blood Urea Nitrogen 38 mg/dL (7-20) Creatinine 1.7 mg/dL (0.6-1.0) Estimated GFR (Cockcroft-Gault) 40.5 Glucose Level 154 mg/dL (70-99) Calcium Level 8.6 mg/dL (8.5-10.1) O2 Saturation 99 % (92-99) Arterial Blood pH 7.51 (7.35-7.45) Arterial Blood pCO2 at Patient Temp 34 mmHg (35-46) Arterial Blood pO2 at Patient Temp 132 mmHg (75-108) Arterial Blood HCO3 27 mmol/L (21-28) Arterial Blood Base Excess 3 mmol/L (-3-3) FiO2 35%+5 Microbiology Micro Microbiology 11/17/20 Blood Culture - Final, Complete NO GROWTH AFTER 5 DAYS 11/15/20 Urine Culture - Final, Complete Physical Exam HEENT: Neck Supple W Full Motion Chest: Symmetric LUNGS: Other (diminished , intubated, vent) Heart: RRR (sinus tach) Abdomen: Other (anasarca) Extremities: Other (anasarca) Neurology: other (sedation) Assessment Assessment 1. Acute on chronic systolic/diastolic CHF:: still fluid overloaded 2. AFIB/flutter: rate controlled. notable for biatrial dilation. was on eliquis. 3. Acute respiratory failure with a/c CHF, possible PNA, cor pulmonale: intubated with vent 4. Valvular insufficiency: notable for moderate MR and mod to severe TR 5. H/o ASD s/p surgical closure: 2014. Unable to advance probe as pt was biting during SAMMY for reevaluation 6. Severe KENNETH: improved after CRRT 7. Anemia: multifactorial. possible UGI erosions. Hgb 8 8. Transaminitis, coagulopathy; INR better at 1.4 9. Severe NICM: 15-20%, LHC revealed no CAD 10. Cardiohepatorenal syndrome: contributor to above issues 11. Hypertension: controlled 12. Hypoglycemia, profound improved 13. Fever: afebirle overnight 14. Abdominal pain; CT with possible colitis 15. Marijuana use 16. Thrmobocytopenia: PLT stable at 85 Recommendations 1. Last CRRT 11/22. Getting x1 HD today. Continue milrinone and lasix therapy UOP improved with the latter 2. Off pressors. Restart metoprolol but OK to hold if BP is at low end 3. Dig PRN 5. OAC at this time with anemia, coagulopathy. Will restart ASA for stroke prevention 6. Empiric antibiotics 7. Supportive care Justicifation of Admission Dx: Justifications for Admission: Justification of Admission Dx: Yes CHF: Cardiac Arrhythmias SAAD YAN MD 11/24/201912: CARDIO Progress Notes Assessment Assessment Patient seen and examined. Agree with CATEGORY MANAGER's assessment and plan. Cardiac cath did not show any significant CAD Continue milrinone infusion for inotropic support and diuresis with IV lasix Continue HD per nephrology team and vent management per pulm team Off pressors, continue abx per MARI KINCAID APRN Nov 24, 2020 14:16 SAAD YAN MD Nov 24, 2020 19:13
[2020-11-24] MEDS ORDERED: POTASSIUM CHLORIDE 20MEQ 100 ML IV ONE (14:30)
[2020-11-24] MEDS: MICAFUNGIN 100 MG in IV DEXTROSE 5% 100ML 100 ML IV SCH (17:00)
--- NOTE | 2020-11-24 17:26 | NUR ---
blaine held this am for dialysis
--- NOTE | 2020-11-24 17:27 | NUR ---
Dialysis finished, removed 3l. pt tolerated well. tube feed restarted
--- NOTE | 2020-11-24 18:35 | RAD ---
XR ABDOMEN 1V Clinical Indication: Reason: vomiting/ PT ON DIALYSIS DO AFTER 1700 / Comparison: CT chest abdomen and pelvis without contrast 11/22/2020. Findings: Stool and gas distention of the proximal colon is similar to prior CT. No air in small bowel is ident ified. There is enteric tube, tip is in the stomach, the side-port is at the gastroesophageal junctio n. Probable hepatomegaly. Tiny phleboliths in the pelvis. There is right femoral central line. Bones appear stable. IMPRESSION: Nonobstructive bowel gas pattern. There is unchanged stool and gas distention of the proximal colon. Electronically signed by: Robert Vazquez MD (11/24/2020 6:33 PM) [facility]
[2020-11-25] VITALS (25 sets, daily range): BP systolic 94–144; BP diastolic 52–79
--- NOTE | 2020-11-25 03:03 | NUR ---
Nursing Note: Tube feeding held due to residuals of 320cc of dark brown liquid. Tf was only running at 20cc/hr
[2020-11-25 05:41] LABS: ALBUMIN 3.3 g/dL (3.4-5.0); TOTAL BILIRUBIN 5.4 mg/dL (0.2-1.0); TOTAL PROTEIN 6.2 g/dL (6.4-8.2)
[2020-11-25 05:44] LABS: RED BLOOD COUNT 3.16 x10^6/uL (3.50-5.40); RED CELL DISTRIBUTION WIDTH 25.3 % (11.5-14.5); WHITE BLOOD COUNT 16.7 x10^3/uL (4.0-11.0)
[2020-11-25 05:44] LABS: CALCIUM 9.3 mg/dL (8.5-10.1); CREATININE 2.1 mg/dL (0.6-1.0); GFR 31.7; POTASSIUM 3.7 mmol/L (3.5-5.1)
[2020-11-25 05:48] LABS: HEMATOCRIT 19.9 % (36.0-47.0); HEMOGLOBIN 6.2 g/dL (12.0-15.5)
[2020-11-25 05:55] LABS: PROTHROMBIN TIME PATIENT 17.4 SEC (11.7-14.0)
[2020-11-25] MEDS: HYDROCORTISONE SOD SUCC/PF 100 MG/2 ML VIAL. IVP SCH ×3 (06:05→22:23)
--- NOTE | 2020-11-25 06:55 | PDOC ---
[facility] [facility] PROGRESS NOTE Date of Service DOS: DATE: 11/25/20 TIME: 06:52 Chief Complaint Chief Complaint Multifactorial respiratory failure with severe heart failure (15% ejection fraction but was 60% just a few months ago) Status post intubation yesterday Sepsis Colitis Severe lactic acidosis Pneumonia Lactic acidosis Severe symptomatic hypoglycemia KENNETH due to vasomotor nephropathy Acute volume overload Coagulopathy History of atrial fibrillation/atrial flutter Secondary cor pulmonale due to pulmonary hypertension Anemia of chronic disease History of Present Illness History of Present Illness 11/25/2020 Afebrile. Remains on vent, FiO2 35%, PEEP 5. Tube feeds held yesterday secondary to vomiting. KUB yesterday showed nonobstructive bowel gas pattern, unchanged stool and gas distention of the proximal colon. CXR showed interval improvement in the bilateral perihilar infiltrates. Hemoglobin 6.2 today. Currently receiving HD. will continue to monitor and transfuse as necessary. 11/24/2020 Afebrile. On vent, FiO2 35%, PEEP 5. No acute events overnight. Continue supportive care. Continue daptomycin, meropenem, micafungin, Zyvox. HD per nephrology. 11/23/2020 Patient seen in ICU. She remains intubated and sedated, FiO2 35%, PEEP 5. SAMMY was attempted but unsuccessful; plans to repeat SAMMY when extubated. Continue Dapto, meropenem, micafungin, and Zyvox, per ID 11/22/2020 Patient seen in ICU. On vent, FiO2 35%, PEEP 5. Afebrile. Receiving hemodialysis this morning. Plan for heart cath today. Discussed with RN. 11/21/2020 Patient seen and evaluated in ICU. Intubated on vent with FiO2 35%, PEEP 5. She is to have right heart cath today. Continue IV antibiotics, per ID. Charts and labs reviewed, discussed with RN. 11/20/2020 Patient seen and examined in the ICU She is still on the vent Assist-control/16/400/40 percent with 6 of PEEP She is off the pressors today She is oxygenating a little bit better Discussed with fulling mill operator considering right heart cath tomorrow On Tranexamic acid qtt per oncologist 11/19/2020 Patient seen and examined in the ICU She remains intubated Assist-control/16/400/40 percent with 6 of PEEP Is currently in A. fib Also on CRRT Chart reviewed Discussed with RN She remains extremely critically ill 11/18/2020 Patient seen and examined in the ICU She is now intubated Ejection fraction noted to be 15% She is extremely critically ill volume overloaded desatting to 78% despite being on 80% FiO2 on the vent Her mom is present I spent quite a bit of time discussing the case with her and escorted her to the [facility] where she wants to pray Discussed with RN Discussed with case management Chart reviewed Patient is on assist-control/26/400/80 percent FiO2 with 8 of PEEP We are considering starting CRRT this afternoon She is sedated with Versed fentanyl and Also has Levophed and vasopressin running On IV Zyvox Extremely critically ill 11/16/2020 Patient seen and examined in the ICU CT abdomen reviewed looks like she has some possible colitis Lactic acid has decreased from 22 down to 8 Discussed with RN Discussed with case management Chart reviewed Vitals/I&O Vitals/I&O: Vital Signs Date Time Temp Pulse Resp B/P (MAP) Pulse Ox O2 Delivery O2 Flow Rate FiO2 11/25/20 06:00 88 23 132/74 (93) 100 Ventilator 11/25/20 04:00 98.9 98.9 I & O 11/24/20 11/24/20 11/25/20 15:00 23:00 07:00 Intake Total 350 ml 866 ml 310 ml Output Total 715 ml 285 ml 350 ml Balance -365 ml 581 ml -40 ml Physical Exam Physical Exam: GENERAL: Intubated/sedated HEENT ETT/OGT tube present Neck Right IJ, left HDC, clean LUNGS: Bibasilar Rales HEART: Irregular. Murmur present ABDOMEN: Mildly distended hypoactive bowel sounds EXTREMITIES: Generalized anasarca NEUROLOGIC: Intubated right femoral arterial line present DERM few areas of bruising present General: Other (Sedated and intubated) Heart: Other (Irregular rhythm, PSM left lower PSB) Lungs: Clear Abdomen: Normal bowel sounds, Other (Minimal OG output) Extremities: No cyanosis, No edema Skin: No rashes, No breakdown Labs Labs: Laboratory Tests Test 11/24/20 07:25 11/25/20 05:15 11/25/20 05:35 O2 Saturation 99 % (92-99) Arterial Blood pH 7.51 (7.35-7.45) Arterial Blood pCO2 at Patient Temp 34 mmHg (35-46) Arterial Blood pO2 at Patient Temp 132 mmHg (75-108) Arterial Blood HCO3 27 mmol/L (21-28) Arterial Blood Base Excess 3 mmol/L (-3-3) FiO2 35%+5 Sodium Level 133 mmol/L (136-145) Potassium Level 3.7 mmol/L (3.5-5.1) Chloride Level 97 mmol/L (98-107) Carbon Dioxide Level 25 mmol/L (21-32) Anion Gap 11 (6-14) Blood Urea Nitrogen 59 mg/dL (7-20) Creatinine 2.1 mg/dL (0.6-1.0) Estimated GFR (Cockcroft-Gault) 31.7 Glucose Level 162 mg/dL (70-99) Calcium Level 9.3 mg/dL (8.5-10.1) Total Bilirubin 5.4 mg/dL (0.2-1.0) Direct Bilirubin 4.0 mg/dL (0.0-0.2) Aspartate Amino Transf (AST/SGOT) 139 U/L (15-37) Alanine Aminotransferase (ALT/SGPT) 114 U/L (14-59) Alkaline Phosphatase 134 U/L (46-116) Total Protein 6.2 g/dL (6.4-8.2) Albumin 3.3 g/dL (3.4-5.0) White Blood Count 16.7 x10^3/uL (4.0-11.0) Red Blood Count 3.16 x10^6/uL (3.50-5.40) Hemoglobin 6.2 g/dL (12.0-15.5) Hematocrit 19.9 % (36.0-47.0) Mean Corpuscular Volume 63 fL (79-100) Mean Corpuscular Hemoglobin 20 pg (25-35) Mean Corpuscular Hemoglobin Concent 31 g/dL (31-37) Red Cell Distribution Width 25.3 % (11.5-14.5) Platelet Count 57 x10^3/uL (140-400) Prothrombin Time 17.4 SEC (11.7-14.0) Prothromb Time International Ratio 1.5 (0.8-1.1) Assessment and Plan Assessmemt and Plan Problems Medical Problems: (1) KENNETH (acute kidney injury) Status: Acute (2) Atrial fibrillation with RVR Status: Acute (3) CHF (congestive heart failure) Status: Acute (4) Hypoglycemia Status: Acute (5) Pneumonia Status: Acute Comment Review of Relevant I have reviewed the following items josé (where applicable) has been applied. Medications: Current Medications Medications (Trade) Dose Ordered Sig/Kailey Route PRN Reason Start Time Stop Time Status Last Admin Dose Admin Furosemide (Lasix) 40 mg DAILY IVP 11/24/20 09:00 11/24/20 08:41 Albumin Human 200 ml @ 200 mls/hr 1X PRN PRN IV Hypotension 11/24/20 14:00 11/24/20 19:59 DC 11/24/20 14:15 Potassium Chloride/Water 100 ml @ 100 mls/hr 1X ONCE IV 11/24/20 14:30 11/24/20 15:29 DC 11/24/20 14:19 Justifications for Admission Other Justification chf exacerbation ANGÉLICA RICHTER MD Nov 25, 2020 06:55
[2020-11-25] MEDS ORDERED: IV NORMAL SALINE 1000ML BAG 1,000 ML IV PRN ×2 (08:00)
[2020-11-25] MEDS ORDERED: DIALYSIS PATIENT. MC PRN ×2 (08:00)
[2020-11-25] MEDS ORDERED: ALBUMIN HUMAN 25% 200 ML IV PRN (08:00)
[2020-11-25] MEDS ORDERED: 0.9 % SODIUM CHLORIDE 10 ML DISP.SYRIN. IV PRN ×2 (08:00)
[2020-11-25] MEDS ORDERED: ASPIRIN CHEWABLE 81 MG TABLET. PO SCH (08:00)
[2020-11-25] MEDS: IPRATRPIUM/ALBUTEROL 0.5/2.5MG 3 ML NEBU. NEB SCH ×4 (08:59→20:00)
[2020-11-25] MEDS: BUDESONIDE 0.5 MG/2 ML NEBU. NEB SCH ×2 (08:59→20:00)
[2020-11-25 09:26] LABS: BASE EXCESS ABG 4 mmol/L (-3-3); HCO3 ABG 28 mmol/L (21-28); PCO2 ABG 39 mmHg (35-46); PO2 ABG 147 mmHg (75-108); SAT O2 ABG 99 % (92-99)
[2020-11-25 09:28] LABS: FIO2 ABG 35
--- NOTE | 2020-11-25 09:39 | PDOC ---
Date of Service: DATE: 11/25/20 TIME: 09:35 Objective: Objective: D/w nurse - tube feeds held for high residuals. Plans for transfusion. On ASA and IV steroids. Vital Signs: Vital Signs Date Time Temp Pulse Resp B/P (MAP) Pulse Ox O2 Delivery O2 Flow Rate FiO2 11/25/20 08:05 79 21 126/66 (86) 100 Ventilator 11/25/20 07:12 97.5 97.5 Labs: Laboratory Tests Test 11/25/20 05:15 11/25/20 05:35 11/25/20 08:00 Sodium Level 133 mmol/L Potassium Level 3.7 mmol/L Chloride Level 97 mmol/L Carbon Dioxide Level 25 mmol/L Anion Gap 11 Blood Urea Nitrogen 59 mg/dL Creatinine 2.1 mg/dL Estimated GFR (Cockcroft-Gault) 31.7 Glucose Level 162 mg/dL Calcium Level 9.3 mg/dL Total Bilirubin 5.4 mg/dL Direct Bilirubin 4.0 mg/dL Aspartate Amino Transf (AST/SGOT) 139 U/L Alanine Aminotransferase (ALT/SGPT) 114 U/L Alkaline Phosphatase 134 U/L Total Protein 6.2 g/dL Albumin 3.3 g/dL White Blood Count 16.7 x10^3/uL Red Blood Count 3.16 x10^6/uL Hemoglobin 6.2 g/dL Hematocrit 19.9 % Mean Corpuscular Volume 63 fL Mean Corpuscular Hemoglobin 20 pg Mean Corpuscular Hemoglobin Concent 31 g/dL Red Cell Distribution Width 25.3 % Platelet Count 57 x10^3/uL Prothrombin Time 17.4 SEC Prothromb Time International Ratio 1.5 O2 Saturation 99 % Arterial Blood pH 7.47 Arterial Blood pCO2 at Patient Temp 39 mmHg Arterial Blood pO2 at Patient Temp 147 mmHg Arterial Blood HCO3 28 mmol/L Arterial Blood Base Excess 4 mmol/L FiO2 35 Imaging: KUB 11/24 IMPRESSION: Nonobstructive bowel gas pattern. There is unchanged stool and gas distention of the proximal colon. CXR 11/24 Impression: Interval improvement in the bilateral perihilar infiltrates. PE: GEN: itnuabted, dialyzing LUNGS: vent, clear HEART: RRR ABD: quiet, soft NEURO/PSYCH: sedated A/P: NICM, resp failure, KENNETH COREEN - Hgb drop w/o obvious bleeding Coagulopathy, elevated LFTs - stable COVID negative 11/17 -- Agree w/ transfusion and holding tube feeds w/ high residuals. KUB as above. Continue PPI. Has suppository ordered PRN. Update: Nurse called at 4:05 p.m. reporting 350cc of "black" output from OGT. Hgb improved w/ transfusion, no stools. Will review w/ Dr. Leon though suspect observation, continue IV PPI, and recheck labs in a.m. (already ordered). ?vit K - INR 1.5 Not ideal EGD candidate - plt 57. Justicifation of Admission Dx: Justifications for Admission: Justification of Admission Dx: Yes CHF: Cardiac Arrhythmias EMILEE WRIGHT Nov 25, 2020 09:39 MIRIAM LEON MD Nov 25, 2020 16:12
[2020-11-25] MEDS: fentaNYL HIGH DOSE PCA 55 ML IV PRN (09:51)
--- NOTE | 2020-11-25 09:54 | PDOC ---
MARI VIVAS [employer] 11/25/20 0954: CARDIO Progress Notes Date and Time Date of Service 11/25/2020 Time of Evaluation 0930 Subjective Subjective: Other (intubated) Vitals Vitals Vital Signs Date Time Temp Pulse Resp B/P (MAP) Pulse Ox O2 Delivery O2 Flow Rate FiO2 11/25/20 09:34 83 12 111/64 (80) 100 Ventilator 11/25/20 07:12 97.5 97.5 Weight Weight [ ] Input and Output Intake and Output Intake and Output 11/25/20 07:00 Intake Total 1526 ml Output Total 1350 ml Balance 176 ml IV Total 1323 ml Tube Feeding 203 ml Output Urine Total 1350 ml Laboratory Labs Laboratory Tests Test 11/25/20 05:15 11/25/20 05:35 11/25/20 08:00 Sodium Level 133 mmol/L (136-145) Potassium Level 3.7 mmol/L (3.5-5.1) Chloride Level 97 mmol/L (98-107) Carbon Dioxide Level 25 mmol/L (21-32) Anion Gap 11 (6-14) Blood Urea Nitrogen 59 mg/dL (7-20) Creatinine 2.1 mg/dL (0.6-1.0) Estimated GFR (Cockcroft-Gault) 31.7 Glucose Level 162 mg/dL (70-99) Calcium Level 9.3 mg/dL (8.5-10.1) Total Bilirubin 5.4 mg/dL (0.2-1.0) Direct Bilirubin 4.0 mg/dL (0.0-0.2) Aspartate Amino Transf (AST/SGOT) 139 U/L (15-37) Alanine Aminotransferase (ALT/SGPT) 114 U/L (14-59) Alkaline Phosphatase 134 U/L (46-116) Total Protein 6.2 g/dL (6.4-8.2) Albumin 3.3 g/dL (3.4-5.0) White Blood Count 16.7 x10^3/uL (4.0-11.0) Red Blood Count 3.16 x10^6/uL (3.50-5.40) Hemoglobin 6.2 g/dL (12.0-15.5) Hematocrit 19.9 % (36.0-47.0) Mean Corpuscular Volume 63 fL (79-100) Mean Corpuscular Hemoglobin 20 pg (25-35) Mean Corpuscular Hemoglobin Concent 31 g/dL (31-37) Red Cell Distribution Width 25.3 % (11.5-14.5) Platelet Count 57 x10^3/uL (140-400) Prothrombin Time 17.4 SEC (11.7-14.0) Prothromb Time International Ratio 1.5 (0.8-1.1) O2 Saturation 99 % (92-99) Arterial Blood pH 7.47 (7.35-7.45) Arterial Blood pCO2 at Patient Temp 39 mmHg (35-46) Arterial Blood pO2 at Patient Temp 147 mmHg (75-108) Arterial Blood HCO3 28 mmol/L (21-28) Arterial Blood Base Excess 4 mmol/L (-3-3) FiO2 35 Microbiology Micro Microbiology 11/17/20 Blood Culture - Final, Complete NO GROWTH AFTER 5 DAYS 11/15/20 Urine Culture - Final, Complete Physical Exam HEENT: Neck Supple W Full Motion Chest: Symmetric LUNGS: Other (diminished , intubated, vent) Heart: irregularly irregular (Atrial flutter with variable conduction) Abdomen: Other (anasarca) Extremities: Other (anasarca) Neurology: other (sedation) Assessment Assessment 1. Acute on chronic systolic/diastolic CHF:: still fluid overloaded 2. AFIB/flutter: rate controlled. notable for biatrial dilation. was on eliquis. 3. Acute respiratory failure with a/c CHF, possible PNA, cor pulmonale: intubated with vent 4. Valvular insufficiency: notable for moderate MR and mod to severe TR 5. H/o ASD s/p surgical closure: 2014. Unable to advance probe as pt was biting during SAMMY for reevaluation 6. Severe KENNETH: Cr increasing again 7. Anemia: multifactorial. possible UGI erosions. Hgb down to 6.2 8. Transaminitis, coagulopathy; INR better at 1.5 9. Severe NICM: 15-20%, LHC revealed no CAD 10. Cardiohepatorenal syndrome: contributor to above issues 11. Hypertension: controlled 12. Hypoglycemia, profound improved 13. Fever: afebirle overnight 14. Abdominal pain; CT with possible colitis 15. Marijuana use 16. Thrmobocytopenia: PLT drifted to 57. No obvious bleed from the OG per RN Recommendations 1. Last CRRT 11/22. Getting HD again today, only fluid removal yesterday. Good UOP overnight. Continue milrinone and lasix therapy 2. Off pressors. Restart metoprolol but OK to hold if BP is at low end 3. Dig PRN 4. OAC at this time with anemia, coagulopathy. Will hold ASA for now. 5. Empiric antibiotics 6. Supportive care Justicifation of Admission Dx: Justifications for Admission: Justification of Admission Dx: Yes CHF: Cardiac Arrhythmias CHAYO LOCKWOOD MD 11/25/201911: CARDIO Progress Notes Plan Plan Patient seen and examined. Agree with above nurse practitioner note. Supportive care. MARI VIVAS APRN Nov 25, 2020 09:54 CHAYO LOCKWOOD MD Nov 25, 2020 19:12
--- NOTE | 2020-11-25 11:24 | PDOC ---
PULMONARY PROGRESS NOTES DATE: 11/25/20 TIME: 11:21 Subjective Patient intubated 11/17 remains on vent support 35%/5 sedated on versed and fent No other concerns overnight Vitals Vital Signs Date Time Temp Pulse Resp B/P (MAP) Pulse Ox O2 Delivery O2 Flow Rate FiO2 11/25/20 11:05 103 19 104/60 (75) 100 Ventilator 11/25/20 10:44 97.7 97.7 11/25/20 09:51 6.0 Comments Intubated Lungs: Clear Cardiovascular: S1, S2 Abdomen: Soft, Non-tender Neuro Exam: Alert Extremities: No Edema Skin: Warm, Dry Labs Laboratory Tests Test 11/24/20 05:40 11/24/20 07:25 11/25/20 05:15 11/25/20 05:35 Sodium Level 135 mmol/L (136-145) 133 mmol/L (136-145) Potassium Level 3.4 mmol/L (3.5-5.1) 3.7 mmol/L (3.5-5.1) Chloride Level 99 mmol/L (98-107) 97 mmol/L (98-107) Carbon Dioxide Level 26 mmol/L (21-32) 25 mmol/L (21-32) Anion Gap 10 (6-14) 11 (6-14) Blood Urea Nitrogen 38 mg/dL (7-20) 59 mg/dL (7-20) Creatinine 1.7 mg/dL (0.6-1.0) 2.1 mg/dL (0.6-1.0) Estimated GFR (Cockcroft-Gault) 40.5 31.7 Glucose Level 154 mg/dL (70-99) 162 mg/dL (70-99) Calcium Level 8.6 mg/dL (8.5-10.1) 9.3 mg/dL (8.5-10.1) O2 Saturation 99 % (92-99) Arterial Blood pH 7.51 (7.35-7.45) Arterial Blood pCO2 at Patient Temp 34 mmHg (35-46) Arterial Blood pO2 at Patient Temp 132 mmHg (75-108) Arterial Blood HCO3 27 mmol/L (21-28) Arterial Blood Base Excess 3 mmol/L (-3-3) FiO2 35%+5 Total Bilirubin 5.4 mg/dL (0.2-1.0) Direct Bilirubin 4.0 mg/dL (0.0-0.2) Aspartate Amino Transf (AST/SGOT) 139 U/L (15-37) Alanine Aminotransferase (ALT/SGPT) 114 U/L (14-59) Alkaline Phosphatase 134 U/L (46-116) Total Protein 6.2 g/dL (6.4-8.2) Albumin 3.3 g/dL (3.4-5.0) White Blood Count 16.7 x10^3/uL (4.0-11.0) Red Blood Count 3.16 x10^6/uL (3.50-5.40) Hemoglobin 6.2 g/dL (12.0-15.5) Hematocrit 19.9 % (36.0-47.0) Mean Corpuscular Volume 63 fL (79-100) Mean Corpuscular Hemoglobin 20 pg (25-35) Mean Corpuscular Hemoglobin Concent 31 g/dL (31-37) Red Cell Distribution Width 25.3 % (11.5-14.5) Platelet Count 57 x10^3/uL (140-400) Prothrombin Time 17.4 SEC (11.7-14.0) Prothromb Time International Ratio 1.5 (0.8-1.1) Test 11/25/20 08:00 O2 Saturation 99 % (92-99) Arterial Blood pH 7.47 (7.35-7.45) Arterial Blood pCO2 at Patient Temp 39 mmHg (35-46) Arterial Blood pO2 at Patient Temp 147 mmHg (75-108) Arterial Blood HCO3 28 mmol/L (21-28) Arterial Blood Base Excess 4 mmol/L (-3-3) FiO2 35 Laboratory Tests Test 11/25/20 05:15 11/25/20 05:35 11/25/20 08:00 Sodium Level 133 mmol/L (136-145) Potassium Level 3.7 mmol/L (3.5-5.1) Chloride Level 97 mmol/L (98-107) Carbon Dioxide Level 25 mmol/L (21-32) Anion Gap 11 (6-14) Blood Urea Nitrogen 59 mg/dL (7-20) Creatinine 2.1 mg/dL (0.6-1.0) Estimated GFR (Cockcroft-Gault) 31.7 Glucose Level 162 mg/dL (70-99) Calcium Level 9.3 mg/dL (8.5-10.1) Total Bilirubin 5.4 mg/dL (0.2-1.0) Direct Bilirubin 4.0 mg/dL (0.0-0.2) Aspartate Amino Transf (AST/SGOT) 139 U/L (15-37) Alanine Aminotransferase (ALT/SGPT) 114 U/L (14-59) Alkaline Phosphatase 134 U/L (46-116) Total Protein 6.2 g/dL (6.4-8.2) Albumin 3.3 g/dL (3.4-5.0) White Blood Count 16.7 x10^3/uL (4.0-11.0) Red Blood Count 3.16 x10^6/uL (3.50-5.40) Hemoglobin 6.2 g/dL (12.0-15.5) Hematocrit 19.9 % (36.0-47.0) Mean Corpuscular Volume 63 fL (79-100) Mean Corpuscular Hemoglobin 20 pg (25-35) Mean Corpuscular Hemoglobin Concent 31 g/dL (31-37) Red Cell Distribution Width 25.3 % (11.5-14.5) Platelet Count 57 x10^3/uL (140-400) Prothrombin Time 17.4 SEC (11.7-14.0) Prothromb Time International Ratio 1.5 (0.8-1.1) O2 Saturation 99 % (92-99) Arterial Blood pH 7.47 (7.35-7.45) Arterial Blood pCO2 at Patient Temp 39 mmHg (35-46) Arterial Blood pO2 at Patient Temp 147 mmHg (75-108) Arterial Blood HCO3 28 mmol/L (21-28) Arterial Blood Base Excess 4 mmol/L (-3-3) FiO2 35 Medications Active Scripts Medications Dose Route/Sig Max Daily Dose Days Date Category Amiodarone Hcl 200 Mg Tablet 200 Mg PO DAILY 30 09/29/20 Rx Eliquis (Apixaban) 5 Mg Tablet 5 Mg PO BID 30 09/29/20 Rx Doxycycline Hyclate 100 Mg Tablet 100 Mg PO BID 5 09/29/20 Rx Klor-Con M20 (Potassium Chloride) 20 Meq Tab.er.prt 20 Meq PO DAILYWBKFT 30 09/29/20 Rx Furosemide 40 Mg Tablet 40 Mg PO DAILY 30 09/29/20 Rx Omeprazole 20 Mg Capsule.dr 1 Cap PO DAILY 08/08/20 Reported Metoprolol Tartrate 25 Mg Tablet 1 Tab PO BID 12/20/14 Reported Feosol (Ferrous Sulfate) 325 Mg Tablet 325 Mg PO DAILY 12/20/14 Reported Aspirin 325 Mg Tablet 1 Tab PO DAILY 12/20/14 Reported Amitriptyline Hcl 50 Mg Tablet 1 Tab PO QHS 12/17/14 Reported Ultram (Tramadol Hcl) 50 Mg Tablet 1 Tab PO Q6HRS PRN 11/01/14 Reported Dulera 100 Mcg/5 Mcg Inhaler (Mometasone/Formoterol) 13 Gm Hfa.aer.ad 2 Puff IH BID 11/01/14 Reported Lidoderm (Lidocaine) 700 Mg Adh..patch 1 Patch TP DAILY PRN 11/01/14 Reported Neurontin (Gabapentin) 300 Mg Capsule 2 Cap PO BID 11/01/14 Reported Flonase (Fluticasone Propionate) 16 Gm [place].susp 2 [place] NS DAILY 11/01/14 Reported Cyclobenzaprine Hcl 10 Mg Tablet 1 Tab PO TID PRN 11/01/14 Reported Celexa (Citalopram Hydrobromide) 40 Mg Tablet 1 Tab PO DAILY 11/01/14 Reported Cetirizine Hcl 10 Mg Tablet 1 Tab PO DAILY 11/01/14 Reported Proair Hfa Inhaler (Albuterol Sulfate) 8.5 Gm Hfa.aer.ad 2 Puff IH PRN Q4-6HRS 11/01/14 Reported Comments CXR IMPRESSION: 1. New left internal jugular temporary dialysis catheter in acceptable position. Otherwise stable support lines and tubes 2. Increasing pulmonary infiltrates and small right pleural effusion Impression . IMPRESSION: 1. Acute hypoxemic respiratory failure multifactorial 2. Shock, likely combination of Cardiogenic (EF15%), Septic 3. Possible pneumonia, gram-negative, gram-positive. Chest x-ray abnormal suspect combination of pulmonary edema and pneumonia 5. Colitis seen on CT abdomen and pelvis 6. Atrial fibrillation/atrial flutter. 7. Acute on chronic heart failure. 8. Bilateral pleural effusions. 9. History of ASD, status post closure. 10. Chronic obstructive pulmonary disease with exacerbation. 11. [id number] cor pulmonale. 12. Severe metabolic acidosis 13. coagulopathy 14. Acute kidney injury-- now on HD 15. Acute liver failure 16. Positive urine drug screen 17. Cardiomyopathy ejection fraction of 15% Plan . Continue current support with assist control ventilation Fi02 35%/ PEEP of 5 D/C sedation and proceed with sedation vacation and pressure support trial post HD Follow CXR/ABG- no changes today COVID-19 negative Follow hematology recs ---- INR improved, Continue A/C, monitor HGB, anemia today planned for 1 unit PRBCs Follow nephrology recs-- HD Antibiotics per infectious disease service Follow cardiology input patient echocardiogram revealed ejection fraction 15%, and Afib now off A/C-- S/P cardiac Cath and SAMMY on 11/22-- no intervention-- see report, now on primacor Follow surgery recs--- no surgical plans at this time Nutritional support with TPN DVT/GI PPX : SCDS/protonix D/W RN and RT critically ill Total cumulative critical care time from 30 minutes KATHRYN CULVER MD Nov 25, 2020 11:24
--- NOTE | 2020-11-25 11:43 | PDOC ---
Infectious Disease Note Subjective: Subjective Patient intubated /sedated Weaned off sedation HB 6.2 off pressors Awaiting dialysis Discussed with RN Vital Signs: Vital Signs Vital Signs Date Time Temp Pulse Resp B/P (MAP) Pulse Ox O2 Delivery O2 Flow Rate FiO2 11/25/20 11:05 103 19 104/60 (75) 100 Ventilator 11/25/20 10:44 97.7 97.7 11/25/20 09:51 6.0 Physical Exam: PHYSICAL EXAM GENERAL: Intubated/sedated HEENT ETT/OGT tube present Neck Right IJ, left HDC, clean LUNGS: Bibasilar Rales HEART: Irregular. Murmur present ABDOMEN: Mildly distended hypoactive bowel sounds EXTREMITIES: Generalized anasarca NEUROLOGIC: Intubated right femoral arterial line present DERM few areas of bruising present Medications: Inpatient Meds: Medications reviewed. Labs: Lab Laboratory Tests Test 11/25/20 05:15 11/25/20 05:35 11/25/20 08:00 Sodium Level 133 mmol/L (136-145) Potassium Level 3.7 mmol/L (3.5-5.1) Chloride Level 97 mmol/L (98-107) Carbon Dioxide Level 25 mmol/L (21-32) Anion Gap 11 (6-14) Blood Urea Nitrogen 59 mg/dL (7-20) Creatinine 2.1 mg/dL (0.6-1.0) Estimated GFR (Cockcroft-Gault) 31.7 Glucose Level 162 mg/dL (70-99) Calcium Level 9.3 mg/dL (8.5-10.1) Total Bilirubin 5.4 mg/dL (0.2-1.0) Direct Bilirubin 4.0 mg/dL (0.0-0.2) Aspartate Amino Transf (AST/SGOT) 139 U/L (15-37) Alanine Aminotransferase (ALT/SGPT) 114 U/L (14-59) Alkaline Phosphatase 134 U/L (46-116) Total Protein 6.2 g/dL (6.4-8.2) Albumin 3.3 g/dL (3.4-5.0) White Blood Count 16.7 x10^3/uL (4.0-11.0) Red Blood Count 3.16 x10^6/uL (3.50-5.40) Hemoglobin 6.2 g/dL (12.0-15.5) Hematocrit 19.9 % (36.0-47.0) Mean Corpuscular Volume 63 fL (79-100) Mean Corpuscular Hemoglobin 20 pg (25-35) Mean Corpuscular Hemoglobin Concent 31 g/dL (31-37) Red Cell Distribution Width 25.3 % (11.5-14.5) Platelet Count 57 x10^3/uL (140-400) Prothrombin Time 17.4 SEC (11.7-14.0) Prothromb Time International Ratio 1.5 (0.8-1.1) O2 Saturation 99 % (92-99) Arterial Blood pH 7.47 (7.35-7.45) Arterial Blood pCO2 at Patient Temp 39 mmHg (35-46) Arterial Blood pO2 at Patient Temp 147 mmHg (75-108) Arterial Blood HCO3 28 mmol/L (21-28) Arterial Blood Base Excess 4 mmol/L (-3-3) FiO2 [address]: No enlarged thoracic lymphadenopathy is evident. No focal aneurysmal dilatation of the thoracic aorta is seen. Cardiomegaly is evident. No pericardial effusion is seen. Small left-sided pleural effusion and moderate size right-sided pleural effusion is seen. Bilateral lung infiltrates are seen most consolidative within the right lower lobe and left lower lobe. Left lower lobe is almost completely consolidated. Some of this could be due to atelectasis given the narrowing of the left lower lobe bronchus. Additional groundglass lung infiltrates are apparent within the upper lobes bilaterally and to lesser extent within the right middle lobe. Atypical pneumonia such as Covid 19 pneumonia is certainly possible. No pneumothorax is seen. No lytic process is seen. IMPRESSION: Bilateral lung infiltrates more consolidative within both lower lobes. The left lower lobe is almost completely consolidated. Some of this on t he left side could be due to atelectasis related to narrowing of the left lower lobe bronchus. Additional groundglass nodular lung infiltrates are seen bilaterally. Therefore, atypical pneumonia such as Covid 19 pneumonia is possible as well. Bilateral pleural effusions; moderate size on the right side mild on the left side. Cardiomegaly. Therefore, lung infiltrates and pleural effusions could be reflection of CHF as well. ABDOMEN AND PELVIS CT: The liver and spleen and pancreas are unremarkable on this noncontrast study. Dense bile is seen within the gallbladder which may represent biliary sludge or could be related to previous contrast study. No extra hepatic ductal dilatation is seen. No adrenal mass is evident. Contrast is seen within both kidneys. This is related to recent cardiac imaging. Multiple wedge-shaped hypodense areas of both kidneys are seen. This could be secondary to multiple renal infarcts or pyelonephritis. No perinephric fluid collection is seen otherwise. No hydronephrosis is evident on either side. Urinary bladder is decompressed by an indwelling Sky catheter. No focal aneurysmal dilatation of the abdominal aorta is seen. No bulky abdominal or pelvic lymphadenopathy is evident. Mild fecal retention is seen within the colon. There is mild dilatation of the right side of the colon. No obstructive bowel pattern is evident. NG tube tip is seen within the proximal body of the stomach. Stomach is not abnormally distended. There is a small amount of free fluid within the pelvis. Generalized anasarca of the soft tissues of the abdomen and pelvis and bilateral flanks is seen. No free air is apparent. A right groin catheter is seen extending into right external iliac artery or vein. No lytic process is evident. IMPRESSION: Multiple wedge-shaped hypodense areas are seen within both kidneys consistent with bilateral renal infarcts or pyelonephritis. No hydronephrosis. Small amount of ascites is seen within the pelvis. Generalized anasarca. Objective: Assessment: 1. Severe sepsis source likely GI 2. Leukocytosis and lactic acidosis. 3. Acute kidney injury with severe metabolic acidosis. 4. Abdominal pain, intermittent nausea.Colitis on CT abdomen, Gen surgery evaluated pt 5. Atrial fibrillation/flutter. 6. Acute on chronic congestive heart failure. 7. Valvular insufficiency. MR, severe TR, hepatic congestion 8. History of PFO cloure/ASD repair. 9. Acute respiratory failure status post intubation, CT chest noted 10. Pulmonary hypertension. 11. Coagulopathy. Thrombocytopenia 12. Abnormal liver function tests , hyperbilirubinemia 13. COVID-19 negative 14.UC negative, CT kidney infarcts KENNETH Plan: Plan of Care Continue Dapto, Merrem, Renal adjustment Cont micafungin ,zyvox Transesophageal echocardiogram attempted but was unsuccessful DC Rt groin line when able Cult remain nonrevealing Gen surgery has evaluated pt Monitor labs and cultures. Continue supportive care. Critically ill Prognosis very poor Discussed with nursing staff MEGAN MEHTA MD Nov 25, 2020 11:43
[2020-11-25] MEDS: PANTOPRAZOLE IV PUSH 40 MG VIAL. IVP SCH (12:22)
[2020-11-25] MEDS: CITALOPRAM 20 MG TABLET. PO SCH (12:22)
[2020-11-25] MEDS: GABAPENTIN 300 MG CAPSULE. PO SCH ×2 (12:22→22:24)
[2020-11-25] MEDS: THIAMINE 100 MG TABLET. PO SCH ×3 (12:22→22:24)
--- NOTE | 2020-11-25 12:22 | PDOC ---
Renal-Progress Notes Subjective Notes Notes INTUBATED History of Present Illness Hx of present illness CRITICALLY ILL Vitals Vitals Vital Signs Date Time Temp Pulse Resp B/P (MAP) Pulse Ox O2 Delivery O2 Flow Rate FiO2 11/25/20 11:05 103 19 104/60 (75) 100 Ventilator 11/25/20 10:44 97.7 97.7 11/25/20 09:51 6.0 Weight Weight [ ] I.O. Intake and Output Intake and Output 11/25/20 07:00 Intake Total 1526 ml Output Total 1350 ml Balance 176 ml IV Total 1323 ml Tube Feeding 203 ml Output Urine Total 1350 ml Labs Labs Laboratory Tests Test 11/25/20 05:15 11/25/20 05:35 11/25/20 08:00 Sodium Level 133 mmol/L (136-145) Potassium Level 3.7 mmol/L (3.5-5.1) Chloride Level 97 mmol/L (98-107) Carbon Dioxide Level 25 mmol/L (21-32) Anion Gap 11 (6-14) Blood Urea Nitrogen 59 mg/dL (7-20) Creatinine 2.1 mg/dL (0.6-1.0) Estimated GFR (Cockcroft-Gault) 31.7 Glucose Level 162 mg/dL (70-99) Calcium Level 9.3 mg/dL (8.5-10.1) Total Bilirubin 5.4 mg/dL (0.2-1.0) Direct Bilirubin 4.0 mg/dL (0.0-0.2) Aspartate Amino Transf (AST/SGOT) 139 U/L (15-37) Alanine Aminotransferase (ALT/SGPT) 114 U/L (14-59) Alkaline Phosphatase 134 U/L (46-116) Total Protein 6.2 g/dL (6.4-8.2) Albumin 3.3 g/dL (3.4-5.0) White Blood Count 16.7 x10^3/uL (4.0-11.0) Red Blood Count 3.16 x10^6/uL (3.50-5.40) Hemoglobin 6.2 g/dL (12.0-15.5) Hematocrit 19.9 % (36.0-47.0) Mean Corpuscular Volume 63 fL (79-100) Mean Corpuscular Hemoglobin 20 pg (25-35) Mean Corpuscular Hemoglobin Concent 31 g/dL (31-37) Red Cell Distribution Width 25.3 % (11.5-14.5) Platelet Count 57 x10^3/uL (140-400) Prothrombin Time 17.4 SEC (11.7-14.0) Prothromb Time International Ratio 1.5 (0.8-1.1) O2 Saturation 99 % (92-99) Arterial Blood pH 7.47 (7.35-7.45) Arterial Blood pCO2 at Patient Temp 39 mmHg (35-46) Arterial Blood pO2 at Patient Temp 147 mmHg (75-108) Arterial Blood HCO3 28 mmol/L (21-28) Arterial Blood Base Excess 4 mmol/L (-3-3) FiO2 35 Micro Micro Microbiology 11/17/20 Blood Culture - Final, Complete NO GROWTH AFTER 5 DAYS 11/15/20 Urine Culture - Final, Complete Review of Systems Constitutional: yes: unresponsive, other (INTUBATED) Physical Exam General Appearance: no apparent distress, febrile Respiratory: bilateral CTA Heart: S1S2 Abdomen: soft, bowel sounds present Genitourinary: bladder flat Extremities: pulses present Neurology: other (sedation) Assessment Assessment IMPRESSION: IMP KENNETH-ATN ACUTE HYPOXIC RESP FAILURE SEPSIS WITH SHOCK PROB PNEUMONIA CM WITH EF OF 15% ANEMIA LEUCOCYTOSIS AFIB/FLUTTER LIVER FAILURE MET ACIDOSIS-COMPENSATED PLAN PT REMAINS CRITICALLY ILL CONT BUCK ANTIBIOTICS PRESSORS NEEDED HD TODAY UF TOLERATED VENT SUPPORT CRITICALL ILL PT POOR PROGNOSIS WILL FOLLOW CHICHI MENDOZA MD Nov 25, 2020 12:22
[2020-11-25] MEDS: MEROPENEM 500 MG in IV NORMAL SALINE 50ML 50 ML IV SCH (12:23)
[2020-11-25] MEDS: METOPROLOL TART IMMED RELEASE 25 MG TABLET. PO SCH ×2 (12:23→22:24)
[2020-11-25] MEDS: MICAFUNGIN 100 MG in IV DEXTROSE 5% 100ML 100 ML IV SCH (12:25)
[2020-11-25] MEDS: FUROSEMIDE 40 MG/4 ML VIAL. IVP SCH (12:25)
[2020-11-25] MEDS: FLUTICASONE 50MCG/NASAL SPRAY 16GM BOTTLE. NS SCH (12:25)
[2020-11-25 12:46] LABS: HEMATOCRIT 25.9 % (36.0-47.0); HEMOGLOBIN 8.1 g/dL (12.0-15.5)
[2020-11-25] MEDS: TPN PER PHARMACY MC PRN ×2 (13:31→13:33)
--- NOTE | 2020-11-25 13:35 | NUR ---
Pharmacy TPN Dosing Note S: NANY MARTIN is a 39 year old F Currently receiving Central Continuous TPN started 11/25/20 B:Pertinent PMH: FAILED TF (HIGH GASTRIC RESIDUALS) Height: 5 feet, 4 inches Weight: 73.619788 kg Current diet: NPO LABS: Sodium: 133 Potassium: 3.7 Chloride: 97 Calcium: 9.3 Corrected Calcium: 9.86 Magnesium: 5 CO2: 25 SCr: 2.1 Glucose: 162 Albumin: 3.3 AST: 139 ALT: 114 TPN FORMULA: TPN TYPE: Central Continuous AMINO ACIDS: 85 gm DEXTROSE: 195 gm LIPIDS: 20 gm SODIUM CHLORIDE: mEq SODIUM ACETATE: mEq SODIUM PHOSPHATE: mmol POTASSIUM CHLORIDE: 20 mEq POTASSIUM ACETATE: mEq POTASSIUM PHOSPHATE: mmol MAGNESIUM: 5 mEq CALCIUM: mEq INSULIN: units MULTIPLE VITAMIN: 5 ml TRACE ELEMENTS: 1 ml(s) TPN PLAN: Pt initially tolerating TF, now ~300 ml dark gastric residual. Starting low volume, low-electrolyte TPN with 20 meq KCl due to hypokalemia requiring daily repletion. Macros per dietary rec; last trig 102, okay for lipid component. BMP/phos/mag in AM, trig Saturday. R: Start TPN ABOVE. Will monitor electrolytes, glucose, and tolerance to TPN. EMANUEL MARION [facility], 11/25/20 0253
--- NOTE | 2020-11-25 15:00 | NUR ---
SS following up with discharge planning. SS reviewed pt chart and discussed with pt RN. Pt is currently on the vent at 35%. Pt on IV Daptomycin, IV Meropenem, IV Zyvox, IV Micafungin, and IV Lasix. Milrinone drip. Pt starting TPN. Pt on Hemodialysis. Not stable. No plans for transfer at this time. SS will continue to follow for discharge planning.
[2020-11-25] MEDS: MILRINONE 20MG/100ML PREMIX 100 ML IV PRN (17:12)
--- NOTE | 2020-11-25 18:22 | NUR ---
Versed has been held, patient is starting to respond to voice. Is not following command. Dialysis was received and 1 unit of PRBC was administered. Connected OG to low intermittent suction. Documented 400cc of dark brown gastric output, GI was notified and will assess tomorrow.
[2020-11-25] MEDS ORDERED: [UNRECOGNIZED DRUG - OTHER] IV SCH (22:00)
[2020-11-25] MEDS ORDERED: AMINO ACID IV SCH (22:00)
[2020-11-25] MEDS ORDERED: TOTAL PARENTERAL NUTRITION IV SCH (22:00)
[2020-11-25] MEDS ORDERED: DEXTROSE 70% IV SCH (22:00)
[2020-11-25] MEDS: DAPTOmycin (GENERIC) IVPB 400 MG in IV NORMAL SALINE 50ML 50 ML IV SCH (22:19)
[2020-11-26] VITALS (25 sets, daily range): BP systolic 113–158; BP diastolic 58–92
[2020-11-26 05:41] LABS: HEMATOCRIT 24.9 % (36.0-47.0); HEMOGLOBIN 7.8 g/dL (12.0-15.5); RED BLOOD COUNT 3.64 x10^6/uL (3.50-5.40); RED CELL DISTRIBUTION WIDTH 29.8 % (11.5-14.5); WHITE BLOOD COUNT 17.2 x10^3/uL (4.0-11.0)
[2020-11-26 05:50] LABS: MAGNESIUM 2.2 mg/dL (1.8-2.4); PHOSPHORUS 3.7 mg/dL (2.6-4.7)
[2020-11-26 05:52] LABS: ALBUMIN 3.1 g/dL (3.4-5.0); ALBUMIN/GLOBULIN RATIO 0.9 (1.0-1.7); CALCIUM 8.9 mg/dL (8.5-10.1); CREATININE 1.7 mg/dL (0.6-1.0); GFR 40.5; POTASSIUM 4.1 mmol/L (3.5-5.1); TOTAL BILIRUBIN 4.1 mg/dL (0.2-1.0); TOTAL PROTEIN 6.5 g/dL (6.4-8.2)
[2020-11-26] MEDS: MILRINONE 20MG/100ML PREMIX 100 ML IV PRN (07:49)
[2020-11-26] MEDS: BUDESONIDE 0.5 MG/2 ML NEBU. NEB SCH ×2 (07:52→20:37)
[2020-11-26] MEDS: IPRATRPIUM/ALBUTEROL 0.5/2.5MG 3 ML NEBU. NEB SCH ×4 (07:52→20:37)
[2020-11-26 08:04] LABS: BASE EXCESS ABG 1 mmol/L (-3-3); HCO3 ABG 25 mmol/L (21-28); PCO2 ABG 35 mmHg (35-46); PO2 ABG 329 mmHg (75-108); SAT O2 ABG 100 % (92-99)
--- NOTE | 2020-11-26 08:32 | PDOC ---
[employer] PROGRESS NOTE Date of Service DOS: DATE: 11/26/20 TIME: 08:30 Chief Complaint Chief Complaint Multifactorial respiratory failure with severe heart failure (15% ejection fraction but was 60% just a few months ago) Status post intubation yesterday Sepsis Colitis Severe lactic acidosis Pneumonia Lactic acidosis Severe symptomatic hypoglycemia KENNETH due to vasomotor nephropathy Acute volume overload Coagulopathy History of atrial fibrillation/atrial flutter Secondary cor pulmonale due to pulmonary hypertension Anemia of chronic disease History of Present Illness History of Present Illness 11/26/2020 Remains on vent, FiO2 35%, PEEP 5. Afebrile. Will opens eyes spontaneously. Hb 7.8 today. Off pressors receiving milrinone infusion and IV Lasix. Continue empiric antibiotics, per ID. 11/25/2020 Afebrile. Remains on vent, FiO2 35%, PEEP 5. Tube feeds held yesterday secondary to vomiting. KUB yesterday showed nonobstructive bowel gas pattern, unchanged stool and gas distention of the proximal colon. CXR showed interval improvement in the bilateral perihilar infiltrates. Hemoglobin 6.2 today. Currently receiving HD. will continue to monitor and transfuse as necessary. 11/24/2020 Afebrile. On vent, FiO2 35%, PEEP 5. No acute events overnight. Continue supportive care. Continue daptomycin, meropenem, micafungin, Zyvox. HD per nephrology. 11/23/2020 Patient seen in ICU. She remains intubated and sedated, FiO2 35%, PEEP 5. SAMMY was attempted but unsuccessful; plans to repeat SAMMY when extubated. Continue Dapto, meropenem, micafungin, and Zyvox, per ID 11/22/2020 Patient seen in ICU. On vent, FiO2 35%, PEEP 5. Afebrile. Receiving hemodialysis this morning. Plan for heart cath today. Discussed with RN. 11/21/2020 Patient seen and evaluated in ICU. Intubated on vent with FiO2 35%, PEEP 5. She is to have right heart cath today. Continue IV antibiotics, per ID. Charts and labs reviewed, discussed with RN. 11/20/2020 Patient seen and examined in the ICU She is still on the vent Assist-control/400/40 percent with 6 of PEEP She is off the pressors today She is oxygenating a little bit better Discussed with exhibits curator considering right heart cath tomorrow On Tranexamic acid qtt per oncologist 11/19/2020 Patient seen and examined in the ICU She remains intubated Assist-control//400/40 percent with 6 of PEEP Is currently in A. fib Also on CRRT Chart reviewed Discussed with RN She remains extremely critically ill 11/18/2020 Patient seen and examined in the ICU She is now intubated Ejection fraction noted to be 15% She is extremely critically ill volume overloaded desatting to 78% despite being on 80% FiO2 on the vent Her mom is present I spent quite a bit of time discussing the case with her and escorted her to the [facility] where she wants to pray Discussed with RN Discussed with case management Chart reviewed Patient is on assist-control//400/80 percent FiO2 with 8 of PEEP We are considering starting CRRT this afternoon She is sedated with Versed fentanyl and Also has Levophed and vasopressin running On IV Zyvox Extremely critically ill 11/16/2020 Patient seen and examined in the ICU CT abdomen reviewed looks like she has some possible colitis Lactic acid has decreased from 22 down to 8 Discussed with RN Discussed with case management Chart reviewed Vitals/I&O Vitals/I&O: Vital Signs Date Time Temp Pulse Resp B/P (MAP) Pulse Ox O2 Delivery O2 Flow Rate FiO2 11/26/20 07:52 100 Ventilator 11/26/20 06:00 113 19 130/70 (90) 11/26/20 04:00 98.4 98.4 11/25/20 10:21 6.0 I & O 11/25/20 11/25/20 11/26/20 15:00 23:00 07:00 Intake Total 840 ml 184 ml 707.6 ml Output Total 195 ml 645 ml 240 ml Balance 645 ml -461 ml 467.6 ml Physical Exam Physical Exam: GENERAL: Intubated HEENT ETT/OGT tube present Neck Right IJ, left HDC, clean LUNGS: Bibasilar Rales HEART: Tachycardic. Murmur present ABDOMEN: Mildly distended hypoactive bowel sounds EXTREMITIES: Generalized anasarca NEUROLOGIC: Intubated right femoral arterial line present DERM few areas of bruising present General: Other (Intubated) Heart: Other (Tachycardic) Lungs: Clear Abdomen: Normal bowel sounds, Other (Minimal OG output) Extremities: No cyanosis, No edema Skin: No rashes, No breakdown Labs Labs: Laboratory Tests Test 11/25/20 12:28 11/26/20 05:00 Hemoglobin 8.1 g/dL (12.0-15.5) 7.8 g/dL (12.0-15.5) Hematocrit 25.9 % (36.0-47.0) 24.9 % (36.0-47.0) Mean Corpuscular Hemoglobin Concent 31 g/dL (31-37) 32 g/dL (31-37) White Blood Count 17.2 x10^3/uL (4.0-11.0) Red Blood Count 3.64 x10^6/uL (3.50-5.40) Mean Corpuscular Volume 69 fL (79-100) Mean Corpuscular Hemoglobin 22 pg (25-35) Red Cell Distribution Width 29.8 % (11.5-14.5) Platelet Count 56 x10^3/uL (140-400) Sodium Level 132 mmol/L (136-145) Potassium Level 4.1 mmol/L (3.5-5.1) Chloride Level 97 mmol/L (98-107) Carbon Dioxide Level 27 mmol/L (21-32) Anion Gap 8 (6-14) Blood Urea Nitrogen 50 mg/dL (7-20) Creatinine 1.7 mg/dL (0.6-1.0) Estimated GFR (Cockcroft-Gault) 40.5 BUN/Creatinine Ratio 29 (6-20) Glucose Level 244 mg/dL (70-99) Calcium Level 8.9 mg/dL (8.5-10.1) Phosphorus Level 3.7 mg/dL (2.6-4.7) Magnesium Level 2.2 mg/dL (1.8-2.4) Total Bilirubin 4.1 mg/dL (0.2-1.0) Aspartate Amino Transf (AST/SGOT) 83 U/L (15-37) Alanine Aminotransferase (ALT/SGPT) 108 U/L (14-59) Alkaline Phosphatase 129 U/L (46-116) Total Protein 6.5 g/dL (6.4-8.2) Albumin 3.1 g/dL (3.4-5.0) Albumin/Globulin Ratio 0.9 (1.0-1.7) Assessment and Plan Assessmemt and Plan Problems Medical Problems: (1) KENNETH (acute kidney injury) Status: Acute (2) Atrial fibrillation with RVR Status: Acute (3) CHF (congestive heart failure) Status: Acute (4) Hypoglycemia Status: Acute (5) Pneumonia Status: Acute Comment Review of Relevant I have reviewed the following items josé (where applicable) has been applied. Medications: Current Medications Medications (Trade) Dose Ordered Sig/Kailey Route PRN Reason Start Time Stop Time Status Last Admin Dose Admin Info (Tpn Per Pharmacy) 1 each PRN DAILY PRN MC SEE COMMENTS 11/25/20 12:00 11/25/20 13:33 Potassium Chloride 20 meq/ Magnesium Sulfate 5 meq/ Multivitamins 5 ml/Zinc/Copper/ Manganese/ Selenium 1 ml/ Total Parenteral Nutrition/Amino Acids/Dextrose/ Fat Emulsion Intravenous 984 ml @ 41 mls/hr TPN CONT IV 11/25/20 22:00 11/26/20 21:59 11/25/20 22:25 Justifications for Admission Other Justification chf exacerbation ANGÉLICA RICHTER MD Nov 26, 2020 08:32
[2020-11-26] MEDS: PANTOPRAZOLE IV PUSH 40 MG VIAL. IVP SCH (08:52)
[2020-11-26] MEDS: CITALOPRAM 20 MG TABLET. PO SCH (08:52)
[2020-11-26] MEDS: FUROSEMIDE 40 MG/4 ML VIAL. IVP SCH (08:52)
[2020-11-26] MEDS: HYDROCORTISONE SOD SUCC/PF 100 MG/2 ML VIAL. IVP SCH ×3 (08:52→21:26)
[2020-11-26] MEDS: METOPROLOL TART IMMED RELEASE 25 MG TABLET. PO SCH ×2 (08:53→21:09)
[2020-11-26] MEDS: GABAPENTIN 300 MG CAPSULE. PO SCH ×2 (08:53→21:09)
[2020-11-26] MEDS: FLUTICASONE 50MCG/NASAL SPRAY 16GM BOTTLE. NS SCH (08:53)
[2020-11-26] MEDS: MEROPENEM 500 MG in IV NORMAL SALINE 50ML 50 ML IV SCH (08:54)
[2020-11-26] MEDS: THIAMINE 100 MG TABLET. PO SCH ×3 (09:00→21:08)
[2020-11-26 09:19] LABS: FIO2 ABG 35/VENT
--- NOTE | 2020-11-26 09:25 | PDOC ---
Infectious Disease Note Subjective Subjective Off sedation, awake, noncommunicative Orally intubated, FiO2 30%; on weaning trial + residuals. No BM. On TPN No fevers last 24 hrs ROS ROS Unobtainable due to patient's condition Vital Sign Vital Signs Vital Signs Date Time Temp Pulse Resp B/P (MAP) Pulse Ox O2 Delivery O2 Flow Rate FiO2 11/26/20 08:53 112 150/86 11/26/20 08:50 100 Ventilator 11/26/20 06:00 19 11/26/20 04:00 98.4 98.4 11/25/20 10:21 6.0 Physical Exam PHYSICAL EXAM GENERAL: Awake, calm, orally intubated HEENT: Pupils equal, anicteric. OGT/ETT in place NECK: Right IJ, left HDC, clean LUNGS: Bibasilar Rales HEART: S1 and S2. murmur present, regular, tachy ABDOMEN: Distended, soft, hypoactive bowel sounds : Sky in place EXTREMITIES: Generalized anasarca NEUROLOGIC: Awake, noncommunicative SKIN: warm to touch. No signs of rash. Tattoos. LINES: right femoral arterial line, RIJ, LIJ/HDC without signs of complications Labs Lab Laboratory Tests Test 11/25/20 12:28 11/26/20 05:00 Hemoglobin 8.1 g/dL (12.0-15.5) 7.8 g/dL (12.0-15.5) Hematocrit 25.9 % (36.0-47.0) 24.9 % (36.0-47.0) Mean Corpuscular Hemoglobin Concent 31 g/dL (31-37) 32 g/dL (31-37) White Blood Count 17.2 x10^3/uL (4.0-11.0) Red Blood Count 3.64 x10^6/uL (3.50-5.40) Mean Corpuscular Volume 69 fL (79-100) Mean Corpuscular Hemoglobin 22 pg (25-35) Red Cell Distribution Width 29.8 % (11.5-14.5) Platelet Count 56 x10^3/uL (140-400) Sodium Level 132 mmol/L (136-145) Potassium Level 4.1 mmol/L (3.5-5.1) Chloride Level 97 mmol/L (98-107) Carbon Dioxide Level 27 mmol/L (21-32) Anion Gap 8 (6-14) Blood Urea Nitrogen 50 mg/dL (7-20) Creatinine 1.7 mg/dL (0.6-1.0) Estimated GFR (Cockcroft-Gault) 40.5 BUN/Creatinine Ratio 29 (6-20) Glucose Level 244 mg/dL (70-99) Calcium Level 8.9 mg/dL (8.5-10.1) Phosphorus Level 3.7 mg/dL (2.6-4.7) Magnesium Level 2.2 mg/dL (1.8-2.4) Total Bilirubin 4.1 mg/dL (0.2-1.0) Aspartate Amino Transf (AST/SGOT) 83 U/L (15-37) Alanine Aminotransferase (ALT/SGPT) 108 U/L (14-59) Alkaline Phosphatase 129 U/L (46-116) Total Protein 6.5 g/dL (6.4-8.2) Albumin 3.1 g/dL (3.4-5.0) Albumin/Globulin Ratio 0.9 (1.0-1.7) Micro Microbiology 11/17/20 Blood Culture - Final, Complete NO GROWTH AFTER 5 DAYS 11/15/20 Urine Culture - Final, Complete Objective Assessment Severe sepsis source likely GI. BC negative Leukocytosis Lactic acidosis. Acute kidney injury with severe metabolic acidosis. Abdominal pain, intermittent nausea.Colitis on CT abdomen, Gen surgery evaluated pt Atrial fibrillation/flutter. Acute on chronic congestive heart failure. Valvular insufficiency. MR, severe TR, hepatic congestion History of PFO cloure/ASD repair. Acute respiratory failure status post intubation, CT chest noted Pulmonary hypertension. Coagulopathy. Thrombocytopenia Abnormal liver function tests , hyperbilirubinemia COVID-19 negative UC negative, CT kidney infarcts KENNETH Plan Plan of Care Continue Dapto, Merrem, renal adjustment Cont micafungin ,zyvox Transesophageal echocardiogram attempted but was unsuccessful DC Rt groin line when able Cult remain nonrevealing Gen surgery has evaluated pt Monitor labs and cultures. Continue supportive care. 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
[2020-11-26 09:32] LABS: BASE EXCESS ABG 2 mmol/L (-3-3); HCO3 ABG 28 mmol/L (21-28); PCO2 ABG 51 mmHg (35-46); PO2 ABG 109 mmHg (75-108); SAT O2 ABG 97 % (92-99)
[2020-11-26 09:37] LABS: FIO2 ABG 30
[2020-11-26] MEDS: TPN PER PHARMACY MC PRN (09:39)
--- NOTE | 2020-11-26 09:41 | NUR ---
Pharmacy TPN Dosing Note S: NANY MARTIN is a 39 year old F Currently receiving Central Continuous TPN started 11/25/20 B:Pertinent PMH: FAILED TF (HIGH GASTRIC RESIDUALS) Height: 5 feet, 4 inches Weight: 73.4 kg Current diet: NPO LABS: Sodium: 132 Potassium: 4.1 Chloride: 97 Calcium: 8.9 Corrected Calcium: 9.62 Magnesium: 2.2 CO2: 27 SCr: 1.7 Glucose: 244 Albumin: 3.1 AST: 83 ALT: 108 TPN FORMULA: TPN TYPE: Central Continuous AMINO ACIDS: 85 gm DEXTROSE: 195 gm LIPIDS: 20 gm SODIUM CHLORIDE: 50 mEq POTASSIUM CHLORIDE: 20 mEq MAGNESIUM: 5 mEq MULTIPLE VITAMIN: 5 ml TRACE ELEMENTS: 1 ml(s) TPN PLAN: Sodium chloride 50mEq added to tonight's bag per labs. BMP/mag/phos in AM R: Change TPN per plan and ordered formula Will monitor electrolytes, glucose, and tolerance to TPN. Dulce Orellana [place], 11/26/20 0958
--- NOTE | 2020-11-26 10:23 | PDOC ---
PULMONARY PROGRESS NOTES DATE: 11/26/20 TIME: 10:18 Subjective Patient intubated 11/17 remains on vent support 35%/5 PEEP awake, but failed CPAP this am, increase BP, PCO2 Vitals Vital Signs Date Time Temp Pulse Resp B/P (MAP) Pulse Ox O2 Delivery O2 Flow Rate FiO2 11/26/20 08:53 112 150/86 11/26/20 08:50 100 Ventilator 11/26/20 06:00 19 11/26/20 04:00 98.4 98.4 11/25/20 10:21 6.0 Comments Intubated General: Alert, Mild Distress Lungs: Clear Cardiovascular: S1, S2 Abdomen: Soft, Non-tender Neuro Exam: Alert Extremities: No Edema Skin: Warm, Dry Labs Laboratory Tests Test 11/25/20 05:15 11/25/20 05:35 11/25/20 08:00 11/25/20 12:28 Sodium Level 133 mmol/L (136-145) Potassium Level 3.7 mmol/L (3.5-5.1) Chloride Level 97 mmol/L (98-107) Carbon Dioxide Level 25 mmol/L (21-32) Anion Gap 11 (6-14) Blood Urea Nitrogen 59 mg/dL (7-20) Creatinine 2.1 mg/dL (0.6-1.0) Estimated GFR (Cockcroft-Gault) 31.7 Glucose Level 162 mg/dL (70-99) Calcium Level 9.3 mg/dL (8.5-10.1) Total Bilirubin 5.4 mg/dL (0.2-1.0) Direct Bilirubin 4.0 mg/dL (0.0-0.2) Aspartate Amino Transf (AST/SGOT) 139 U/L (15-37) Alanine Aminotransferase (ALT/SGPT) 114 U/L (14-59) Alkaline Phosphatase 134 U/L (46-116) Total Protein 6.2 g/dL (6.4-8.2) Albumin 3.3 g/dL (3.4-5.0) White Blood Count 16.7 x10^3/uL (4.0-11.0) Red Blood Count 3.16 x10^6/uL (3.50-5.40) Hemoglobin 6.2 g/dL (12.0-15.5) 8.1 g/dL (12.0-15.5) Hematocrit 19.9 % (36.0-47.0) 25.9 % (36.0-47.0) Mean Corpuscular Volume 63 fL (79-100) Mean Corpuscular Hemoglobin 20 pg (25-35) Mean Corpuscular Hemoglobin Concent 31 g/dL (31-37) 31 g/dL (31-37) Red Cell Distribution Width 25.3 % (11.5-14.5) Platelet Count 57 x10^3/uL (140-400) Prothrombin Time 17.4 SEC (11.7-14.0) Prothromb Time International Ratio 1.5 (0.8-1.1) O2 Saturation 99 % (92-99) Arterial Blood pH 7.47 (7.35-7.45) Arterial Blood pCO2 at Patient Temp 39 mmHg (35-46) Arterial Blood pO2 at Patient Temp 147 mmHg (75-108) Arterial Blood HCO3 28 mmol/L (21-28) Arterial Blood Base Excess 4 mmol/L (-3-3) FiO2 35 Test 11/26/20 05:00 11/26/20 07:30 11/26/20 09:20 White Blood Count 17.2 x10^3/uL (4.0-11.0) Red Blood Count 3.64 x10^6/uL (3.50-5.40) Hemoglobin 7.8 g/dL (12.0-15.5) Hematocrit 24.9 % (36.0-47.0) Mean Corpuscular Volume 69 fL (79-100) Mean Corpuscular Hemoglobin 22 pg (25-35) Mean Corpuscular Hemoglobin Concent 32 g/dL (31-37) Red Cell Distribution Width 29.8 % (11.5-14.5) Platelet Count 56 x10^3/uL (140-400) Sodium Level 132 mmol/L (136-145) Potassium Level 4.1 mmol/L (3.5-5.1) Chloride Level 97 mmol/L (98-107) Carbon Dioxide Level 27 mmol/L (21-32) Anion Gap 8 (6-14) Blood Urea Nitrogen 50 mg/dL (7-20) Creatinine 1.7 mg/dL (0.6-1.0) Estimated GFR (Cockcroft-Gault) 40.5 BUN/Creatinine Ratio 29 (6-20) Glucose Level 244 mg/dL (70-99) Calcium Level 8.9 mg/dL (8.5-10.1) Phosphorus Level 3.7 mg/dL (2.6-4.7) Magnesium Level 2.2 mg/dL (1.8-2.4) Total Bilirubin 4.1 mg/dL (0.2-1.0) Aspartate Amino Transf (AST/SGOT) 83 U/L (15-37) Alanine Aminotransferase (ALT/SGPT) 108 U/L (14-59) Alkaline Phosphatase 129 U/L (46-116) Total Protein 6.5 g/dL (6.4-8.2) Albumin 3.1 g/dL (3.4-5.0) Albumin/Globulin Ratio 0.9 (1.0-1.7) O2 Saturation 100 % (92-99) 97 % (92-99) Arterial Blood pH 7.47 (7.35-7.45) 7.35 (7.35-7.45) Arterial Blood pCO2 at Patient Temp 35 mmHg (35-46) 51 mmHg (35-46) Arterial Blood pO2 at Patient Temp 329 mmHg (75-108) 109 mmHg (75-108) Arterial Blood HCO3 25 mmol/L (21-28) 28 mmol/L (21-28) Arterial Blood Base Excess 1 mmol/L (-3-3) 2 mmol/L (-3-3) FiO2 35/vent 30 Laboratory Tests Test 11/25/20 12:28 11/26/20 05:00 11/26/20 07:30 11/26/20 09:20 Hemoglobin 8.1 g/dL (12.0-15.5) 7.8 g/dL (12.0-15.5) Hematocrit 25.9 % (36.0-47.0) 24.9 % (36.0-47.0) Mean Corpuscular Hemoglobin Concent 31 g/dL (31-37) 32 g/dL (31-37) White Blood Count 17.2 x10^3/uL (4.0-11.0) Red Blood Count 3.64 x10^6/uL (3.50-5.40) Mean Corpuscular Volume 69 fL (79-100) Mean Corpuscular Hemoglobin 22 pg (25-35) Red Cell Distribution Width 29.8 % (11.5-14.5) Platelet Count 56 x10^3/uL (140-400) Sodium Level 132 mmol/L (136-145) Potassium Level 4.1 mmol/L (3.5-5.1) Chloride Level 97 mmol/L (98-107) Carbon Dioxide Level 27 mmol/L (21-32) Anion Gap 8 (6-14) Blood Urea Nitrogen 50 mg/dL (7-20) Creatinine 1.7 mg/dL (0.6-1.0) Estimated GFR (Cockcroft-Gault) 40.5 BUN/Creatinine Ratio 29 (6-20) Glucose Level 244 mg/dL (70-99) Calcium Level 8.9 mg/dL (8.5-10.1) Phosphorus Level 3.7 mg/dL (2.6-4.7) Magnesium Level 2.2 mg/dL (1.8-2.4) Total Bilirubin 4.1 mg/dL (0.2-1.0) Aspartate Amino Transf (AST/SGOT) 83 U/L (15-37) Alanine Aminotransferase (ALT/SGPT) 108 U/L (14-59) Alkaline Phosphatase 129 U/L (46-116) Total Protein 6.5 g/dL (6.4-8.2) Albumin 3.1 g/dL (3.4-5.0) Albumin/Globulin Ratio 0.9 (1.0-1.7) O2 Saturation 100 % (92-99) 97 % (92-99) Arterial Blood pH 7.47 (7.35-7.45) 7.35 (7.35-7.45) Arterial Blood pCO2 at Patient Temp 35 mmHg (35-46) 51 mmHg (35-46) Arterial Blood pO2 at Patient Temp 329 mmHg (75-108) 109 mmHg (75-108) Arterial Blood HCO3 25 mmol/L (21-28) 28 mmol/L (21-28) Arterial Blood Base Excess 1 mmol/L (-3-3) 2 mmol/L (-3-3) FiO2 35/vent 30 Medications Active Scripts Medications Dose Route/Sig Max Daily Dose Days Date Category Amiodarone Hcl 200 Mg Tablet 200 Mg PO DAILY 30 09/29/20 Rx Eliquis (Apixaban) 5 Mg Tablet 5 Mg PO BID 30 09/29/20 Rx Doxycycline Hyclate 100 Mg Tablet 100 Mg PO BID 5 09/29/20 Rx Klor-Con M20 (Potassium Chloride) 20 Meq Tab.er.prt 20 Meq PO DAILYWBKFT 30 09/29/20 Rx Furosemide 40 Mg Tablet 40 Mg PO DAILY 30 09/29/20 Rx Omeprazole 20 Mg Capsule.dr 1 Cap PO DAILY 08/08/20 Reported Metoprolol Tartrate 25 Mg Tablet 1 Tab PO BID 12/20/14 Reported Feosol (Ferrous Sulfate) 325 Mg Tablet 325 Mg PO DAILY 12/20/14 Reported Aspirin 325 Mg Tablet 1 Tab PO DAILY 12/20/14 Reported Amitriptyline Hcl 50 Mg Tablet 1 Tab PO QHS 12/17/14 Reported Ultram (Tramadol Hcl) 50 Mg Tablet 1 Tab PO Q6HRS PRN 11/01/14 Reported Dulera 100 Mcg/5 Mcg Inhaler (Mometasone/Formoterol) 13 Gm Hfa.aer.ad 2 Puff IH BID 11/01/14 Reported Lidoderm (Lidocaine) 700 Mg Adh..patch 1 Patch TP DAILY PRN 11/01/14 Reported Neurontin (Gabapentin) 300 Mg Capsule 2 Cap PO BID 11/01/14 Reported Flonase (Fluticasone Propionate) 16 Gm [place].susp 2 [place] NS DAILY 11/01/14 Reported Cyclobenzaprine Hcl 10 Mg Tablet 1 Tab PO TID PRN 11/01/14 Reported Celexa (Citalopram Hydrobromide) 40 Mg Tablet 1 Tab PO DAILY 11/01/14 Reported Cetirizine Hcl 10 Mg Tablet 1 Tab PO DAILY 11/01/14 Reported Proair Hfa Inhaler (Albuterol Sulfate) 8.5 Gm Hfa.aer.ad 2 Puff IH PRN Q4-6HRS 11/01/14 Reported Comments CXR IMPRESSION: 1. New left internal jugular temporary dialysis catheter in acceptable position. Otherwise stable support lines and tubes 2. Increasing pulmonary infiltrates and small right pleural effusion Impression . IMPRESSION: 1. Acute hypoxemic respiratory failure multifactorial. 2. Shock, likely combination of Cardiogenic (EF15%), Septic 3. Possible pneumonia, gram-negative, gram-positive. Chest x-ray abnormal suspect combination of pulmonary edema and pneumonia 5. Colitis seen on CT abdomen and pelvis, likely source of sepsis 6. Atrial fibrillation/atrial flutter. 7. Acute on chronic heart failure.EF15% 8. Bilateral pleural effusions.stable 9. History of ASD, status post closure. 10. Chronic obstructive pulmonary disease with exacerbation. 11. Txkal-em-pylrdow cor pulmonale. 12. Severe metabolic acidosis 13. coagulopathy 14. Acute kidney injury-- now on HD 15. Acute liver failure, ? amiodarone induced 16. Positive urine drug screen 17. Cardiomyopathy ejection fraction of 15% 18. Encephalopathy, hepatic, 19. Severe Pulmonary HTN, possible hepato -pulmonary vs due to severe CMP Plan . Continue current support with assist control ventilation Fi02 35%/ PEEP of 5. awake, but failed CPAP this am, increase BP, PCO2 Hold off pressure support trial today Mental status better, but not safe for extubation, likely hepatic encephalopathy HD Follow CXR/ABG- COVID-19 negative Follow hematology recs ---- holding AC, platelets low Follow nephrology recs-- HD Antibiotics per infectious disease service Follow cardiology input patient echocardiogram revealed ejection fraction 15%, and Afib now off A/C-- S/P cardiac Cath and SAMMY on 11/22-- no intervention-- see report, now on primacor Follow surgery recs--- no surgical plans at this time Nutritional support with TPN Monitor LFT, mild improvement in Bili DVT/GI PPX : SCDS/protonix D/W RN and RT critically ill Total cumulative critical care time from 30 minutes KATHRYN CULVER MD Nov 26, 2020 10:23
[2020-11-26] MEDS: PROPOFOL 100 ML IV PRN ×2 (11:29→22:47)
--- NOTE | 2020-11-26 12:22 | PDOC ---
DATE OF SERVICE: DOS: DATE: 11/26/20 TIME: 12:20 SUBJECTIVE ROS Follow-up for acute renal failure/ATN Remains sedated intubated on the vent. Urine output is good OBJECTIVE Vital Signs Vital Signs Date Time Temp Pulse Resp B/P (MAP) Pulse Ox O2 Delivery O2 Flow Rate FiO2 11/26/20 11:11 100 Ventilator 11/26/20 08:53 112 150/86 11/26/20 06:00 19 11/26/20 04:00 98.4 98.4 11/25/20 10:21 6.0 I & 0 Intake and Output 11/26/20 07:00 Intake Total 1731.6 ml Output Total 1080 ml Balance 651.6 ml IV Total 1281.6 ml Blood Product IV Normal Saline Flush 390 ml Other 60 ml Output Urine Total 680 ml Gastric Drainage Total 400 ml PHYSICAL EXAM Physical Exam Sedated intubated on the vent Lungs clear to auscultation Heart sounds S1-S2 Trace edema DIAGNOSIS/ASSESSMENT Assessment & Plan KENNETH-ATN: Remains nonoliguric at this time. Creatinine stable in the 1.7-2.1 range No further recommendations at this time COMMENT/RELEVANT DATA Meds Current Medications Medications (Trade) Dose Ordered Sig/Kailey Start Time Stop Time Status Last Admin Dose Admin Acetaminophen (Tylenol) 650 mg PRN Q4HRS PRN 11/15/20 16:15 11/23/20 08:39 650 MG Albumin Human 200 ml @ 200 mls/hr 1X PRN PRN 11/25/20 08:00 11/25/20 13:59 DC Albuterol/ Ipratropium (Duoneb) 3 ml RTQID 11/17/20 09:00 11/26/20 07:52 3 ML Amiodarone HCl (Cordarone) 200 mg DAILY 11/16/20 09:00 11/15/20 16:38 DC Aspirin (Aspirin Chewable) 81 mg DAILYWBKFT 11/25/20 08:00 11/25/20 09:44 DC Aspirin (Tat[place]na Aspirin) 325 mg DAILY 11/16/20 09:00 11/15/20 16:38 DC Bisacodyl (Dulcolax Supp) 10 mg PRN DAILY PRN 11/23/20 12:30 11/24/20 21:14 10 MG Budesonide (Pulmicort) 0.5 mg RTBID 11/17/20 09:00 11/26/20 07:52 0.5 MG Calcium Carbonate/ Glycine (Tums) 1,000 mg PRN Q4HRS PRN 11/16/20 21:30 11/16/20 21:37 1,000 MG Calcium Gluconate 1000 mg/Sodium Chloride 110 ml @ 220 mls/hr 1X ONCE 11/17/20 17:15 11/17/20 17:44 DC 11/17/20 17:36 220 MLS/HR Cefepime HCl (Maxipime) 2 gm Q24H 11/15/20 17:00 11/17/20 11:51 DC 11/16/20 16:30 2 GM Chlorhexidine Gluconate (Peridex) 15 ml BID 11/17/20 21:00 11/19/20 20:39 DC 11/19/20 09:00 15 ML Citalopram Hydrobromide (CeleXA) 40 mg DAILY 11/16/20 09:00 11/26/20 08:52 40 MG Daptomycin 390 mg/ Sodium Chloride 50 ml @ 100 mls/hr Q48H 11/20/20 13:00 11/18/20 16:23 DC Daptomycin 400 mg/ Sodium Chloride 50 ml @ 100 mls/hr Q48H 11/23/20 21:00 11/25/20 22:19 100 MLS/HR Daptomycin 500 mg/ Sodium Chloride 50 ml @ 100 mls/hr Q48H 11/19/20 21:00 11/22/20 15:52 DC 11/21/20 20:46 100 MLS/HR Dextrose (Dextrose 50%-Water Syringe) 12.5 gm PRN Q15MIN PRN 11/15/20 16:15 Dextrose/Sodium Chloride 1,000 ml @ 50 mls/hr Q20H 11/15/20 16:00 11/19/20 17:06 DC 11/17/20 09:28 50 MLS/HR Digoxin (Lanoxin) 500 mcg 1X ONCE 11/17/20 15:30 11/17/20 15:31 DC 11/17/20 15:43 500 MCG Docusate Sodium (Colace) 100 mg PRN DAILY PRN 11/15/20 16:15 Epinephrine HCl 10 mg/Sodium Chloride 250 ml @ 11.85 mls/ hr CONT PRN 11/17/20 17:30 11/17/20 22:09 47.4 MLS/HR Epinephrine HCl 5 mg/Sodium Chloride 255 ml @ 24.266 mls/ hr CONT PRN 11/17/20 14:45 11/17/20 20:00 DC 11/17/20 19:44 121.328 MLS/HR Etomidate (Amidate) 12 mg 1X ONCE 11/17/20 14:15 11/17/20 14:16 DC 11/17/20 14:15 12 MG Fentanyl Citrate 55 ml @ 0 mls/hr CONT PRN PRN 11/19/20 21:00 11/25/20 09:51 1 MLS/HR Fentanyl Citrate (Fentanyl 2ml Vial) 50 mcg PRN Q1HR PRN 11/17/20 14:00 Fluticasone Propionate (Flonase) 2 spray DAILY 11/16/20 09:00 11/25/20 12:25 2 SPRAY Furosemide (Lasix) 40 mg DAILY 11/24/20 09:00 11/26/20 08:52 40 MG Gabapentin (Neurontin) 600 mg BID 11/15/20 21:00 11/26/20 08:53 600 MG Heparin Sodium (Porcine) (Heparin Sodium) 5,000 unit Q12HR 11/15/20 21:00 11/15/20 16:17 DC Heparin Sodium/ Sodium Chloride 500 ml @ As Directed STK-MED ONCE 11/22/20 11:33 11/22/20 11:34 DC Hydrocortisone Sodium Succinate (Solu-CORTEF) 100 mg Q8HRS 11/17/20 22:00 11/26/20 08:52 100 MG Info (PHARMACY MONITORING -- do not chart) 1 each PRN DAILY PRN 11/25/20 08:00 Info (Tpn Per Pharmacy) 1 each PRN DAILY PRN 11/25/20 12:00 11/26/20 09:39 1 EACH Iodixanol (Visipaque 320) 100 ml STK-MED ONCE 11/22/20 11:33 11/22/20 11:33 DC Lidocaine HCl (Buffered Lidocaine 1%) 6 ml 1X ONCE 11/18/20 09:45 11/18/20 09:46 DC 11/18/20 09:53 5 ML Lidocaine HCl (Lidocaine 1% 20ml Vial) 20 ml STK-MED ONCE 11/22/20 11:33 11/22/20 11:33 DC Lidocaine HCl (Xylocaine 2% Topical 5gm Tube) 5 makenna STK-MED ONCE 11/16/20 12:00 11/17/20 15:35 DC Lidocaine HCl (Xylocaine-Mpf 1% 2ml Vial) 2 ml 1X ONCE 11/17/20 12:00 11/17/20 12:07 DC Linezolid/Dextrose 300 ml @ 300 mls/hr Q12HR 11/17/20 18:00 11/26/20 11:26 300 MLS/HR Meropenem 1 gm/ Sodium Chloride 100 ml @ 200 mls/hr Q12HR 11/18/20 21:00 11/22/20 15:50 DC 11/21/20 21:22 200 MLS/HR Meropenem 500 mg/ Sodium Chloride 50 ml @ 100 mls/hr DAILY 11/23/20 09:00 11/26/20 08:54 100 MLS/HR Metoprolol Tartrate (Lopressor) 25 mg BID 11/23/20 14:00 11/26/20 08:53 25 MG Metronidazole 100 ml @ 100 mls/hr Q12HR 11/15/20 21:00 11/17/20 11:51 DC 11/17/20 08:41 100 MLS/HR Micafungin Sodium 100 mg/Dextrose 100 ml @ 100 mls/hr Q24H 11/17/20 12:30 11/25/20 12:25 100 MLS/HR Midazolam HCl 100 ml @ 0 mls/hr CONT PRN 11/17/20 14:00 11/24/20 18:33 6 MLS/HR Milrinone Lactate/ Dextrose 100 ml @ 8.786 mls/ hr CONT PRN 11/23/20 10:15 11/26/20 07:49 5.858 MLS/HR Morphine Sulfate (Morphine Sulfate) 4 mg PRN Q1HR PRN 11/17/20 14:00 Norepinephrine Bitartrate 32 mg/ Dextrose 250 ml @ 3.703 mls/ hr CONT PRN 11/17/20 13:30 11/18/20 03:50 14.813 MLS/HR Norepinephrine Bitartrate 8 mg/ Dextrose 258 ml @ 15.344 mls/ hr CONT PRN 11/17/20 11:15 11/17/20 14:30 DC 11/17/20 11:32 14.8 MLS/HR Ondansetron HCl (Zofran) 4 mg PRN Q6HRS PRN 11/15/20 16:15 Pantoprazole Sodium (PROTONIX VIAL for IV PUSH) 40 mg DAILYAC 11/18/20 07:30 11/26/20 08:52 40 MG Pantoprazole Sodium (Protonix) 40 mg DAILYAC 11/16/20 07:30 11/17/20 14:53 DC 11/17/20 08:36 40 MG Phenylephrine HCl 50 mg/Sodium Chloride 255 ml @ 12.133 mls/ hr CONT PRN 11/17/20 13:30 Piperacillin Sod/ Tazobactam Sod 3.375 gm/Sodium Chloride 50 ml @ 100 mls/hr 1X ONCE 11/15/20 13:00 11/15/20 13:29 DC 11/15/20 13:05 100 MLS/HR Potassium Chloride 15 meq/ Bicarbonate Dialysis Soln w/ out KCl 5,007.5 ml @ 1,250 mls/ hr Q4H1M 11/18/20 11:00 11/23/20 21:49 DC 11/22/20 07:35 1,250 MLS/HR Potassium Chloride 20 meq/ Magnesium Sulfate 5 meq/ Multivitamins 5 ml/Zinc/Copper/ Manganese/ Selenium 1 ml/ Total Parenteral Nutrition/Amino Acids/Dextrose/ Fat Emulsion Intravenous 984 ml @ 41 mls/hr TPN CONT 11/25/20 22:00 11/26/20 21:59 11/25/20 22:25 41 MLS/HR Potassium Chloride/Water 100 ml @ 100 mls/hr 1X ONCE 11/24/20 14:30 11/24/20 15:29 DC 11/24/20 14:19 100 MLS/HR Potassium Chloride (Klor-Con) 60 meq 1X ONCE 11/16/20 14:00 11/16/20 14:01 DC 11/16/20 14:06 60 MEQ Propofol 100 ml @ 2.202 mls/ hr CONT PRN 11/26/20 11:00 11/26/20 11:29 2.202 MLS/HR Prothrombin Complex Concent (Human) 2000 unit/ Miscellaneous 80 ml @ 160 mls/hr 1X ONCE 11/18/20 14:30 11/18/20 14:59 DC 11/18/20 14:48 160 MLS/HR Ringer's Solution 1,000 ml @ 1,000 mls/hr Q1H ONCE 11/17/20 14:00 11/17/20 14:59 DC 11/17/20 15:45 1,000 MLS/HR Sennosides (Senna) 17.2 mg PRN BID PRN 11/15/20 16:15 Sodium Bicarbonate 150 meq/Dextrose 1,150 ml @ 125 mls/hr Q9H12M ONCE 11/17/20 11:30 11/17/20 20:41 DC 11/17/20 11:26 125 MLS/HR Sodium Bicarbonate (Sodium Bicarb Adult 8.4% Syr) 100 meq 1X ONCE 11/17/20 14:15 11/17/20 14:16 DC 11/17/20 14:15 100 MEQ Sodium Chloride (Normal Saline Flush) 10 ml 1X PRN PRN 11/25/20 08:00 11/25/20 21:00 DC Sodium Chloride 50 meq/Potassium Chloride 20 meq/ Magnesium Sulfate 5 meq/ Multivitamins 5 ml/Zinc/Copper/ Manganese/ Selenium 1 ml/ Total Parenteral Nutrition/Amino Acids/Dextrose/ Fat Emulsion Intravenous 984 ml @ 41 mls/hr TPN CONT 11/26/20 22:00 11/27/20 21:59 Sodium Phosphate 15 mmol/Sodium Chloride 105 ml @ 105 mls/hr 1X ONCE 11/22/20 10:00 11/22/20 10:59 DC 11/22/20 10:40 105 MLS/HR Sodium Phosphate 20 mmol/Sodium Chloride 256.6667 ml @ 64.167 m... 1X ONCE 11/21/20 01:00 11/21/20 04:59 DC 11/21/20 00:54 64.167 MLS/HR Succinylcholine Chloride (Anectine) 100 mg 1X ONCE 11/17/20 14:15 11/17/20 14:16 DC 11/17/20 14:15 100 MG Thiamine Mononitrate (Vitamin B-1) 300 mg TID 11/17/20 14:00 11/25/20 22:24 300 MG Thiamine HCl 300 mg/Dextrose 53 ml @ 102 mls/hr Q8HRS 11/15/20 22:00 11/17/20 09:46 DC 11/17/20 06:17 102 MLS/HR Tranexamic Acid 50 ml @ 50 mls/hr Q12HR 11/18/20 13:00 11/23/20 16:00 DC 11/23/20 08:40 50 MLS/HR Vancomycin HCl (Vanco Per Pharmacy) 1 each PRN DAILY PRN 11/15/20 16:15 11/16/20 11:05 DC Vancomycin HCl 2 gm/Sodium Chloride 500 ml @ 250 mls/hr 1X ONCE 11/15/20 13:00 11/15/20 14:59 DC 11/15/20 13:37 250 MLS/HR Vasopressin 20 unit/Dextrose 101 ml @ 12 mls/hr CONT PRN 11/17/20 13:30 UNV Vecuronium [place] (Norcuron Bolus) 6 mg PRN Q2HR PRN 11/17/20 20:00 11/17/20 22:11 6 MG Lab Laboratory Tests Test 11/25/20 12:28 11/26/20 05:00 11/26/20 07:30 11/26/20 09:20 Hemoglobin 8.1 g/dL (12.0-15.5) 7.8 g/dL (12.0-15.5) Hematocrit 25.9 % (36.0-47.0) 24.9 % (36.0-47.0) Mean Corpuscular Hemoglobin Concent 31 g/dL (31-37) 32 g/dL (31-37) White Blood Count 17.2 x10^3/uL (4.0-11.0) Red Blood Count 3.64 x10^6/uL (3.50-5.40) Mean Corpuscular Volume 69 fL (79-100) Mean Corpuscular Hemoglobin 22 pg (25-35) Red Cell Distribution Width 29.8 % (11.5-14.5) Platelet Count 56 x10^3/uL (140-400) Sodium Level 132 mmol/L (136-145) Potassium Level 4.1 mmol/L (3.5-5.1) Chloride Level 97 mmol/L (98-107) Carbon Dioxide Level 27 mmol/L (21-32) Anion Gap 8 (6-14) Blood Urea Nitrogen 50 mg/dL (7-20) Creatinine 1.7 mg/dL (0.6-1.0) Estimated GFR (Cockcroft-Gault) 40.5 BUN/Creatinine Ratio 29 (6-20) Glucose Level 244 mg/dL (70-99) Calcium Level 8.9 mg/dL (8.5-10.1) Phosphorus Level 3.7 mg/dL (2.6-4.7) Magnesium Level 2.2 mg/dL (1.8-2.4) Total Bilirubin 4.1 mg/dL (0.2-1.0) Aspartate Amino Transf (AST/SGOT) 83 U/L (15-37) Alanine Aminotransferase (ALT/SGPT) 108 U/L (14-59) Alkaline Phosphatase 129 U/L (46-116) Total Protein 6.5 g/dL (6.4-8.2) Albumin 3.1 g/dL (3.4-5.0) Albumin/Globulin Ratio 0.9 (1.0-1.7) O2 Saturation 100 % (92-99) 97 % (92-99) Arterial Blood pH 7.47 (7.35-7.45) 7.35 (7.35-7.45) Arterial Blood pCO2 at Patient Temp 35 mmHg (35-46) 51 mmHg (35-46) Arterial Blood pO2 at Patient Temp 329 mmHg (75-108) 109 mmHg (75-108) Arterial Blood HCO3 25 mmol/L (21-28) 28 mmol/L (21-28) Arterial Blood Base Excess 1 mmol/L (-3-3) 2 mmol/L (-3-3) FiO2 35/vent 30 Results All relevant outside records, renal labs, imaging studies, telemetry/EKG's were reviewed. Justicifation of Admission Dx: Justifications for Admission: Justification of Admission Dx: Yes CHF: Cardiac Arrhythmias DEYA MEHTA MD Nov 26, 2020 12:22
[2020-11-26] MEDS: MICAFUNGIN 100 MG in IV DEXTROSE 5% 100ML 100 ML IV SCH (12:49)
--- NOTE | 2020-11-26 15:20 | RAD ---
XR CHEST 1V Clinical History: Reason: chf / Spl. Instructions: / History: Follow-up postop intubated Technique: AP view of the chest was obtained at 11/26/2020 12:16 PM. Comparison: November 24, 2020. Findings: The heart is moderately enlarged. The pulmonary vessels are borderline enlarged. The right jugular li ne and endotracheal tube left jugular line and enteric tube and right PICC are again seen unchanged. There is subtle patchy perihilar opacities. The pleural margins are clear. Impression: 1. Moderate cardiomegaly. 2. Support devices well positioned and unchanged. 3. Mild bilateral infiltrates appears improved and is likely resolving discoid atelectasis. Electronically signed by: Vignesh Fontenot III, MD (11/26/2020 3:18 PM) [facility]
[2020-11-26] MEDS ORDERED: BISACODYL 10 MG SUPP.RECT. PR ONE (16:00)
[2020-11-26] MEDS ORDERED: TOTAL PARENTERAL NUTRITION IV SCH (22:00)
[2020-11-26] MEDS ORDERED: DEXTROSE 70% IV SCH (22:00)
[2020-11-26] MEDS ORDERED: AMINO ACID IV SCH (22:00)
[2020-11-26] MEDS ORDERED: [UNRECOGNIZED DRUG - OTHER] IV SCH (22:00)
[2020-11-27] VITALS (24 sets, daily range): BP systolic 102–162; BP diastolic 51–92
[2020-11-27] MEDS: MILRINONE 20MG/100ML PREMIX 100 ML IV PRN ×2 (01:42→18:23)
[2020-11-27] MEDS: HYDROCORTISONE SOD SUCC/PF 100 MG/2 ML VIAL. IVP SCH ×3 (06:08→21:38)
[2020-11-27 06:42] LABS: CALCIUM 9.1 mg/dL (8.5-10.1); CREATININE 1.8 mg/dL (0.6-1.0); GFR 37.9; MAGNESIUM 2.2 mg/dL (1.8-2.4); PHOSPHORUS 3.4 mg/dL (2.6-4.7); POTASSIUM 3.8 mmol/L (3.5-5.1)
--- NOTE | 2020-11-27 07:09 | PDOC ---
[employer] PROGRESS NOTE Date of Service DOS: DATE: 11/27/20 TIME: 07:07 Chief Complaint Chief Complaint Multifactorial respiratory failure with severe heart failure (15% ejection fraction but was 60% just a few months ago) Status post intubation yesterday Sepsis Colitis Severe lactic acidosis Pneumonia Lactic acidosis Severe symptomatic hypoglycemia KENNETH due to vasomotor nephropathy Acute volume overload Coagulopathy History of atrial fibrillation/atrial flutter Secondary cor pulmonale due to pulmonary hypertension Anemia of chronic disease History of Present Illness History of Present Illness 11/27/20 Patient seen and evaluated in ICU. Afebrile. On vent, FiO2 30%, PEEP 5. Will run extubation, she is spontaneously opening eyes and moving her arms. Some elevating blood glucose, will initiate insulin. Continue antibiotics for colitis, per ID. Hemodialysis, per nephrology. 11/26/2020 Remains on vent, FiO2 35%, PEEP 5. Afebrile. Will opens eyes spontaneously. Hb 7.8 today. Off pressors receiving milrinone infusion and IV Lasix. Continue empiric antibiotics, per ID. 11/25/2020 Afebrile. Remains on vent, FiO2 35%, PEEP 5. Tube feeds held yesterday secondary to vomiting. KUB yesterday showed nonobstructive bowel gas pattern, unchanged stool and gas distention of the proximal colon. CXR showed interval improvement in the bilateral perihilar infiltrates. Hemoglobin 6.2 today. Currently receiving HD. will continue to monitor and transfuse as necessary. 11/24/2020 Afebrile. On vent, FiO2 35%, PEEP 5. No acute events overnight. Continue supportive care. Continue daptomycin, meropenem, micafungin, Zyvox. HD per nephrology. 11/23/2020 Patient seen in ICU. She remains intubated and sedated, FiO2 35%, PEEP 5. SAMMY was attempted but unsuccessful; plans to repeat SAMMY when extubated. Continue Dapto, meropenem, micafungin, and Zyvox, per ID 11/22/2020 Patient seen in ICU. On vent, FiO2 35%, PEEP 5. Afebrile. Receiving hemodialysis this morning. Plan for heart cath today. Discussed with RN. 11/21/2020 Patient seen and evaluated in ICU. Intubated on vent with FiO2 35%, PEEP 5. She is to have right heart cath today. Continue IV antibiotics, per ID. Charts and labs reviewed, discussed with RN. 11/20/2020 Patient seen and examined in the ICU She is still on the vent Assist-control/16/400/40 percent with 6 of PEEP She is off the pressors today She is oxygenating a little bit better Discussed with building estimator considering right heart cath tomorrow On Tranexamic acid qtt per oncologist 11/19/2020 Patient seen and examined in the ICU She remains intubated Assist-control/16/400/40 percent with 6 of PEEP Is currently in A. fib Also on CRRT Chart reviewed Discussed with RN She remains extremely critically ill 11/18/2020 Patient seen and examined in the ICU She is now intubated Ejection fraction noted to be 15% She is extremely critically ill volume overloaded desatting to 78% despite being on 80% FiO2 on the vent Her mom is present I spent quite a bit of time discussing the case with her and escorted her to the [facility] where she wants to pray Discussed with RN Discussed with case management Chart reviewed Patient is on assist-control/26/400/80 percent FiO2 with 8 of PEEP We are considering starting CRRT this afternoon She is sedated with Versed fentanyl and Also has Levophed and vasopressin running On IV Zyvox Extremely critically ill 11/16/2020 Patient seen and examined in the ICU CT abdomen reviewed looks like she has some possible colitis Lactic acid has decreased from 22 down to 8 Discussed with RN Discussed with case management Chart reviewed Vitals/I&O Vitals/I&O: Vital Signs Date Time Temp Pulse Resp B/P (MAP) Pulse Ox O2 Delivery O2 Flow Rate FiO2 11/27/20 06:00 109 20 117/64 (81) 100 Ventilator 11/27/20 04:00 98.3 98.3 I & O 11/26/20 11/26/20 11/27/20 15:00 23:00 07:00 Intake Total 350 ml 1483 ml Output Total 700 ml 825 ml 400 ml Balance -350 ml -825 ml 1083 ml Physical Exam Physical Exam: GENERAL: Intubated HEENT ETT/OGT tube present Neck Right IJ, left HDC, clean LUNGS: Bibasilar Rales HEART: Tachycardic. Murmur present ABDOMEN: Mildly distended hypoactive bowel sounds EXTREMITIES: Generalized anasarca NEUROLOGIC: Intubated right femoral arterial line present DERM few areas of bruising present General: Other (Intubated) Heart: Other (Tachycardic) Lungs: Clear Abdomen: Normal bowel sounds, Other (Minimal OG output) Extremities: No cyanosis, No edema Skin: No rashes, No breakdown Labs Labs: Laboratory Tests Test 11/26/20 07:30 11/26/20 09:20 11/27/20 06:00 O2 Saturation 100 % (92-99) 97 % (92-99) Arterial Blood pH 7.47 (7.35-7.45) 7.35 (7.35-7.45) Arterial Blood pCO2 at Patient Temp 35 mmHg (35-46) 51 mmHg (35-46) Arterial Blood pO2 at Patient Temp 329 mmHg (75-108) 109 mmHg (75-108) Arterial Blood HCO3 25 mmol/L (21-28) 28 mmol/L (21-28) Arterial Blood Base Excess 1 mmol/L (-3-3) 2 mmol/L (-3-3) FiO2 35/vent 30 Sodium Level 137 mmol/L (136-145) Potassium Level 3.8 mmol/L (3.5-5.1) Chloride Level 99 mmol/L (98-107) Carbon Dioxide Level 27 mmol/L (21-32) Anion Gap 11 (6-14) Blood Urea Nitrogen 65 mg/dL (7-20) Creatinine 1.8 mg/dL (0.6-1.0) Estimated GFR (Cockcroft-Gault) 37.9 Glucose Level 248 mg/dL (70-99) Calcium Level 9.1 mg/dL (8.5-10.1) Phosphorus Level 3.4 mg/dL (2.6-4.7) Magnesium Level 2.2 mg/dL (1.8-2.4) Assessment and Plan Assessmemt and Plan Problems Medical Problems: (1) KENNETH (acute kidney injury) Status: Acute (2) Atrial fibrillation with RVR Status: Acute (3) CHF (congestive heart failure) Status: Acute (4) Hypoglycemia Status: Acute (5) Pneumonia Status: Acute Comment Review of Relevant I have reviewed the following items josé (where applicable) has been applied. Medications: Current Medications Medications (Trade) Dose Ordered Sig/Kailey Route PRN Reason Start Time Stop Time Status Last Admin Dose Admin Sodium Chloride 50 meq/Potassium Chloride 20 meq/ Magnesium Sulfate 5 meq/ Multivitamins 5 ml/Zinc/Copper/ Manganese/ Selenium 1 ml/ Total Parenteral Nutrition/Amino Acids/Dextrose/ Fat Emulsion Intravenous 984 ml @ 41 mls/hr TPN CONT IV 11/26/20 22:00 11/27/20 21:59 11/26/20 21:27 Propofol 100 ml @ 2.202 mls/ hr CONT PRN IV PER PROTOCOL 11/26/20 11:00 11/26/20 22:47 Bisacodyl (Dulcolax Supp) 10 mg 1X ONCE ID 11/26/20 16:00 11/26/20 16:01 DC 11/26/20 21:08 Hydrocortisone Sodium Succinate (Solu-CORTEF) 50 mg Q8HRS IVP 11/26/20 22:00 11/27/20 06:08 Justifications for Admission Other Justification chf exacerbation ANGÉLICA RICHTER MD Nov 27, 2020 07:09
[2020-11-27] MEDS ORDERED: DEXTROSE 50% 25 GM / 50ML DISP.SYRIN. IV PRN (07:15)
[2020-11-27 07:43] LABS: BASO % 0 % (0-3); EOS % 0 % (0-3); HEMATOCRIT 24.1 % (36.0-47.0); HEMOGLOBIN 7.5 g/dL (12.0-15.5); LYMPH # 1.1 x10^3/uL (1.0-4.8); LYMPH % 7 % (24-48); MEAN CORPUSCULAR HEMOGLOBIN 21 pg (25-35); MEAN CORPUSCULAR HGB CONC 31 g/dL (31-37); MEAN CORPUSCULAR VOLUME 69 fL (79-100); MONO # 0.9 x10^3/uL (0.0-1.1); MONO % 6 % (0-9); NEUT # 14.7 x10^3/uL (1.8-7.7); NEUT % 88 % (31-73); PLATELET COUNT 58 x10^3/uL (140-400); RED BLOOD COUNT 3.49 x10^6/uL (3.50-5.40); RED CELL DISTRIBUTION WIDTH 28.7 % (11.5-14.5); WHITE BLOOD COUNT 16.8 x10^3/uL (4.0-11.0)
[2020-11-27] MEDS: BUDESONIDE 0.5 MG/2 ML NEBU. NEB SCH ×2 (08:05→20:19)
[2020-11-27] MEDS: IPRATRPIUM/ALBUTEROL 0.5/2.5MG 3 ML NEBU. NEB SCH ×4 (08:05→20:19)
[2020-11-27] MEDS: PANTOPRAZOLE IV PUSH 40 MG VIAL. IVP SCH (08:26)
[2020-11-27] MEDS: CITALOPRAM 20 MG TABLET. PO SCH (08:27)
[2020-11-27] MEDS: GABAPENTIN 300 MG CAPSULE. PO SCH ×2 (08:27→21:00)
[2020-11-27] MEDS: FUROSEMIDE 40 MG/4 ML VIAL. IVP SCH (08:27)
[2020-11-27] MEDS: MEROPENEM 500 MG in IV NORMAL SALINE 50ML 50 ML IV SCH (08:28)
[2020-11-27] MEDS: FLUTICASONE 50MCG/NASAL SPRAY 16GM BOTTLE. NS SCH (08:28)
[2020-11-27] MEDS: METOPROLOL TART IMMED RELEASE 25 MG TABLET. PO SCH (08:28)
[2020-11-27] MEDS: THIAMINE 100 MG TABLET. PO SCH ×3 (08:28→21:00)
--- NOTE | 2020-11-27 08:56 | PDOC ---
Infectious Disease Note Subjective Subjective Off sedation, awake, noncommunicative Orally intubated, FiO2 30%; No increase O2 needs. + BM. On TPN No fevers last 48 hrs ROS ROS Unobtainable due to patient's condition Vital Sign Vital Signs Vital Signs Date Time Temp Pulse Resp B/P (MAP) Pulse Ox O2 Delivery O2 Flow Rate FiO2 11/27/20 08:28 117 137/69 11/27/20 07:55 100 Ventilator 11/27/20 07:00 21 11/27/20 04:00 98.3 98.3 Physical Exam PHYSICAL EXAM GENERAL: Awake, orally intubated, calm HEENT: Pupils equal, ETT/OGT tube present NECK: Right IJ and left HDC, clean LUNGS: Clear anteriorly. HEART: S1 and S2, regular, murmur present ABDOMEN: Mildly distended, soft, hypoactive bowel sounds : Sky in place EXTREMITIES: Trace edema. SCD bilaterally NEUROLOGIC: Awake, noncommunicative SKIN: warm to touch. No signs of generalized rash. LINES: RUE-PICC, R fem art line, RIJ, LIJ/HDC without signs of complications Labs Lab Laboratory Tests Test 11/26/20 09:20 11/27/20 05:55 11/27/20 06:00 11/27/20 08:31 O2 Saturation 97 % (92-99) Arterial Blood pH 7.35 (7.35-7.45) Arterial Blood pCO2 at Patient Temp 51 mmHg (35-46) Arterial Blood pO2 at Patient Temp 109 mmHg (75-108) Arterial Blood HCO3 28 mmol/L (21-28) Arterial Blood Base Excess 2 mmol/L (-3-3) FiO2 30 White Blood Count 16.8 x10^3/uL (4.0-11.0) Red Blood Count 3.49 x10^6/uL (3.50-5.40) Hemoglobin 7.5 g/dL (12.0-15.5) Hematocrit 24.1 % (36.0-47.0) Mean Corpuscular Volume 69 fL (79-100) Mean Corpuscular Hemoglobin 21 pg (25-35) Mean Corpuscular Hemoglobin Concent 31 g/dL (31-37) Red Cell Distribution Width 28.7 % (11.5-14.5) Platelet Count 58 x10^3/uL (140-400) Neutrophils (%) (Auto) 88 % (31-73) Lymphocytes (%) (Auto) 7 % (24-48) Monocytes (%) (Auto) 6 % (0-9) Eosinophils (%) (Auto) 0 % (0-3) Basophils (%) (Auto) 0 % (0-3) Neutrophils # (Auto) 14.7 x10^3/uL (1.8-7.7) Lymphocytes # (Auto) 1.1 x10^3/uL (1.0-4.8) Monocytes # (Auto) 0.9 x10^3/uL (0.0-1.1) Eosinophils # (Auto) 0.0 x10^3/uL (0.0-0.7) Basophils # (Auto) 0.0 x10^3/uL (0.0-0.2) Sodium Level 137 mmol/L (136-145) Potassium Level 3.8 mmol/L (3.5-5.1) Chloride Level 99 mmol/L (98-107) Carbon Dioxide Level 27 mmol/L (21-32) Anion Gap 11 (6-14) Blood Urea Nitrogen 65 mg/dL (7-20) Creatinine 1.8 mg/dL (0.6-1.0) Estimated GFR (Cockcroft-Gault) 37.9 Glucose Level 248 mg/dL (70-99) Calcium Level 9.1 mg/dL (8.5-10.1) Phosphorus Level 3.4 mg/dL (2.6-4.7) Magnesium Level 2.2 mg/dL (1.8-2.4) Glucose (Fingerstick) 249 mg/dL (70-99) CXR 2-20 1. Moderate cardiomegaly. 2. Support devices well positioned and unchanged. 3. Mild bilateral infiltrates appears improved and is likely resolving discoid atelectasis. Micro Microbiology 11/17/20 Blood Culture - Final, Complete NO GROWTH AFTER 5 DAYS Objective Assessment Severe sepsis source likely GI. BC negative Leukocytosis Lactic acidosis. Acute kidney injury with severe metabolic acidosis. Abdominal pain, intermittent nausea.Colitis on CT abdomen, Gen surgery evaluated pt Atrial fibrillation/flutter. Acute on chronic congestive heart failure. Valvular insufficiency. MR, severe TR, hepatic congestion History of PFO cloure/ASD repair. Acute respiratory failure status post intubation, CT chest noted Pulmonary hypertension. Coagulopathy. Thrombocytopenia Abnormal liver function tests , hyperbilirubinemia COVID-19 negative UC negative, CT kidney infarcts KENNETH Plan Plan of Care Continue Dapto, Merrem, renal adjustment and micafungin Off zyvox with thrombocytopenia - neg cults and 10 days of treatment Transesophageal echocardiogram attempted but was unsuccessful DC Rt groin line when able On steroids Gen surgery has evaluated pt Monitor labs/temp Continue supportive care. Critically ill Prognosis very poor Discussed with nursing staff Alert - mild abd distension Would D/c art line. Attending Co-Sign Attending Co-Sign The patient was seen and interviewed as well as examined at the bedside. The chart was reviewed. The case was discussed. Agree with the plan of care. ALFRED GEIGER APRN Nov 27, 2020 08:56 AV VLALES MD Nov 27, 2020 14:43
[2020-11-27] MEDS: INSULIN LISPRO 300 UNITS/3 ML VIAL. SQ SCH ×3 (09:25→18:05)
[2020-11-27 09:31] LABS: BASE EXCESS ABG 3 mmol/L (-3-3); HCO3 ABG 28 mmol/L (21-28); PCO2 ABG 49 mmHg (35-46); PO2 ABG 96 mmHg (75-108); SAT O2 ABG 96 % (92-99)
[2020-11-27 09:31] LABS: ALBUMIN 2.9 g/dL (3.4-5.0); DIRECT BILIRUBIN 2.4 mg/dL (0.0-0.2); TOTAL BILIRUBIN 3.8 mg/dL (0.2-1.0); TOTAL PROTEIN 6.1 g/dL (6.4-8.2)
[2020-11-27 09:36] LABS: FIO2 ABG 30% PS 14 PEEP 5
--- NOTE | 2020-11-27 10:11 | PDOC ---
PULMONARY PROGRESS NOTES DATE: 11/27/20 TIME: 10:04 Subjective Patient intubated 11/17 remains on vent support 35%/5 PEEP awake, but failed CPAP 11/26, increase BP, PCO2 Did better today,,but still have moderate secretions Vitals Vital Signs Date Time Temp Pulse Resp B/P (MAP) Pulse Ox O2 Delivery O2 Flow Rate FiO2 11/27/20 09:00 116 27 162/92 (115) 100 Ventilator 11/27/20 08:00 98.5 98.5 Comments Intubated General: Alert Lungs: Clear Cardiovascular: S1, S2 Abdomen: Soft, Non-tender Neuro Exam: Alert Extremities: No Edema Skin: Warm, Dry Labs Laboratory Tests Test 11/25/20 12:28 11/26/20 05:00 11/26/20 07:30 11/26/20 09:20 Hemoglobin 8.1 g/dL (12.0-15.5) 7.8 g/dL (12.0-15.5) Hematocrit 25.9 % (36.0-47.0) 24.9 % (36.0-47.0) Mean Corpuscular Hemoglobin Concent 31 g/dL (31-37) 32 g/dL (31-37) White Blood Count 17.2 x10^3/uL (4.0-11.0) Red Blood Count 3.64 x10^6/uL (3.50-5.40) Mean Corpuscular Volume 69 fL (79-100) Mean Corpuscular Hemoglobin 22 pg (25-35) Red Cell Distribution Width 29.8 % (11.5-14.5) Platelet Count 56 x10^3/uL (140-400) Sodium Level 132 mmol/L (136-145) Potassium Level 4.1 mmol/L (3.5-5.1) Chloride Level 97 mmol/L (98-107) Carbon Dioxide Level 27 mmol/L (21-32) Anion Gap 8 (6-14) Blood Urea Nitrogen 50 mg/dL (7-20) Creatinine 1.7 mg/dL (0.6-1.0) Estimated GFR (Cockcroft-Gault) 40.5 BUN/Creatinine Ratio 29 (6-20) Glucose Level 244 mg/dL (70-99) Calcium Level 8.9 mg/dL (8.5-10.1) Phosphorus Level 3.7 mg/dL (2.6-4.7) Magnesium Level 2.2 mg/dL (1.8-2.4) Total Bilirubin 4.1 mg/dL (0.2-1.0) Aspartate Amino Transf (AST/SGOT) 83 U/L (15-37) Alanine Aminotransferase (ALT/SGPT) 108 U/L (14-59) Alkaline Phosphatase 129 U/L (46-116) Total Protein 6.5 g/dL (6.4-8.2) Albumin 3.1 g/dL (3.4-5.0) Albumin/Globulin Ratio 0.9 (1.0-1.7) O2 Saturation 100 % (92-99) 97 % (92-99) Arterial Blood pH 7.47 (7.35-7.45) 7.35 (7.35-7.45) Arterial Blood pCO2 at Patient Temp 35 mmHg (35-46) 51 mmHg (35-46) Arterial Blood pO2 at Patient Temp 329 mmHg (75-108) 109 mmHg (75-108) Arterial Blood HCO3 25 mmol/L (21-28) 28 mmol/L (21-28) Arterial Blood Base Excess 1 mmol/L (-3-3) 2 mmol/L (-3-3) FiO2 35/vent 30 Test 11/27/20 05:55 11/27/20 06:00 11/27/20 08:00 11/27/20 08:31 White Blood Count 16.8 x10^3/uL (4.0-11.0) Red Blood Count 3.49 x10^6/uL (3.50-5.40) Hemoglobin 7.5 g/dL (12.0-15.5) Hematocrit 24.1 % (36.0-47.0) Mean Corpuscular Volume 69 fL (79-100) Mean Corpuscular Hemoglobin 21 pg (25-35) Mean Corpuscular Hemoglobin Concent 31 g/dL (31-37) Red Cell Distribution Width 28.7 % (11.5-14.5) Platelet Count 58 x10^3/uL (140-400) Neutrophils (%) (Auto) 88 % (31-73) Lymphocytes (%) (Auto) 7 % (24-48) Monocytes (%) (Auto) 6 % (0-9) Eosinophils (%) (Auto) 0 % (0-3) Basophils (%) (Auto) 0 % (0-3) Neutrophils # (Auto) 14.7 x10^3/uL (1.8-7.7) Lymphocytes # (Auto) 1.1 x10^3/uL (1.0-4.8) Monocytes # (Auto) 0.9 x10^3/uL (0.0-1.1) Eosinophils # (Auto) 0.0 x10^3/uL (0.0-0.7) Basophils # (Auto) 0.0 x10^3/uL (0.0-0.2) Sodium Level 137 mmol/L (136-145) Potassium Level 3.8 mmol/L (3.5-5.1) Chloride Level 99 mmol/L (98-107) Carbon Dioxide Level 27 mmol/L (21-32) Anion Gap 11 (6-14) Blood Urea Nitrogen 65 mg/dL (7-20) Creatinine 1.8 mg/dL (0.6-1.0) Estimated GFR (Cockcroft-Gault) 37.9 Glucose Level 248 mg/dL (70-99) Calcium Level 9.1 mg/dL (8.5-10.1) Phosphorus Level 3.4 mg/dL (2.6-4.7) Magnesium Level 2.2 mg/dL (1.8-2.4) Total Bilirubin 3.8 mg/dL (0.2-1.0) Direct Bilirubin 2.4 mg/dL (0.0-0.2) Aspartate Amino Transf (AST/SGOT) 49 U/L (15-37) Alanine Aminotransferase (ALT/SGPT) 84 U/L (14-59) Alkaline Phosphatase 110 U/L (46-116) Total Protein 6.1 g/dL (6.4-8.2) Albumin 2.9 g/dL (3.4-5.0) O2 Saturation 96 % (92-99) Arterial Blood pH 7.38 (7.35-7.45) Arterial Blood pCO2 at Patient Temp 49 mmHg (35-46) Arterial Blood pO2 at Patient Temp 96 mmHg (75-108) Arterial Blood HCO3 28 mmol/L (21-28) Arterial Blood Base Excess 3 mmol/L (-3-3) FiO2 30% ps 14 peep 5 Glucose (Fingerstick) 249 mg/dL (70-99) Laboratory Tests Test 11/27/20 05:55 11/27/20 06:00 11/27/20 08:00 11/27/20 08:31 White Blood Count 16.8 x10^3/uL (4.0-11.0) Red Blood Count 3.49 x10^6/uL (3.50-5.40) Hemoglobin 7.5 g/dL (12.0-15.5) Hematocrit 24.1 % (36.0-47.0) Mean Corpuscular Volume 69 fL (79-100) Mean Corpuscular Hemoglobin 21 pg (25-35) Mean Corpuscular Hemoglobin Concent 31 g/dL (31-37) Red Cell Distribution Width 28.7 % (11.5-14.5) Platelet Count 58 x10^3/uL (140-400) Neutrophils (%) (Auto) 88 % (31-73) Lymphocytes (%) (Auto) 7 % (24-48) Monocytes (%) (Auto) 6 % (0-9) Eosinophils (%) (Auto) 0 % (0-3) Basophils (%) (Auto) 0 % (0-3) Neutrophils # (Auto) 14.7 x10^3/uL (1.8-7.7) Lymphocytes # (Auto) 1.1 x10^3/uL (1.0-4.8) Monocytes # (Auto) 0.9 x10^3/uL (0.0-1.1) Eosinophils # (Auto) 0.0 x10^3/uL (0.0-0.7) Basophils # (Auto) 0.0 x10^3/uL (0.0-0.2) Sodium Level 137 mmol/L (136-145) Potassium Level 3.8 mmol/L (3.5-5.1) Chloride Level 99 mmol/L (98-107) Carbon Dioxide Level 27 mmol/L (21-32) Anion Gap 11 (6-14) Blood Urea Nitrogen 65 mg/dL (7-20) Creatinine 1.8 mg/dL (0.6-1.0) Estimated GFR (Cockcroft-Gault) 37.9 Glucose Level 248 mg/dL (70-99) Calcium Level 9.1 mg/dL (8.5-10.1) Phosphorus Level 3.4 mg/dL (2.6-4.7) Magnesium Level 2.2 mg/dL (1.8-2.4) Total Bilirubin 3.8 mg/dL (0.2-1.0) Direct Bilirubin 2.4 mg/dL (0.0-0.2) Aspartate Amino Transf (AST/SGOT) 49 U/L (15-37) Alanine Aminotransferase (ALT/SGPT) 84 U/L (14-59) Alkaline Phosphatase 110 U/L (46-116) Total Protein 6.1 g/dL (6.4-8.2) Albumin 2.9 g/dL (3.4-5.0) O2 Saturation 96 % (92-99) Arterial Blood pH 7.38 (7.35-7.45) Arterial Blood pCO2 at Patient Temp 49 mmHg (35-46) Arterial Blood pO2 at Patient Temp 96 mmHg (75-108) Arterial Blood HCO3 28 mmol/L (21-28) Arterial Blood Base Excess 3 mmol/L (-3-3) FiO2 30% ps 14 peep 5 Glucose (Fingerstick) 249 mg/dL (70-99) Medications Active Scripts Medications Dose Route/Sig Max Daily Dose Days Date Category Amiodarone Hcl 200 Mg Tablet 200 Mg PO DAILY 09/29/20 Rx Eliquis (Apixaban) 5 Mg Tablet 5 Mg PO BID 30 09/29/20 Rx Doxycycline Hyclate 100 Mg Tablet 100 Mg PO BID 5 09/29/20 Rx Klor-Con M20 (Potassium Chloride) 20 Meq Tab.er.prt 20 Meq PO DAILYWBKFT 30 09/29/20 Rx Furosemide 40 Mg Tablet 40 Mg PO DAILY 09/29/20 Rx Omeprazole 20 Mg Capsule.dr 1 Cap PO DAILY 08/08/20 Reported Metoprolol Tartrate 25 Mg Tablet 1 Tab PO BID 12/20/14 Reported Feosol (Ferrous Sulfate) 325 Mg Tablet 325 Mg PO DAILY 12/20/14 Reported Aspirin 325 Mg Tablet 1 Tab PO DAILY 12/20/14 Reported Amitriptyline Hcl 50 Mg Tablet 1 Tab PO QHS 12/17/14 Reported Ultram (Tramadol Hcl) 50 Mg Tablet 1 Tab PO Q6HRS PRN 11/01/14 Reported Dulera 100 Mcg/5 Mcg Inhaler (Mometasone/Formoterol) 13 Gm Hfa.aer.ad 2 Puff IH BID 11/01/14 Reported Lidoderm (Lidocaine) 700 Mg Adh..patch 1 Patch TP DAILY PRN 11/01/14 Reported Neurontin (Gabapentin) 300 Mg Capsule 2 Cap PO BID 11/01/14 Reported Flonase (Fluticasone Propionate) 16 Gm Marston.susp 2 Marston NS DAILY 11/01/14 Reported Cyclobenzaprine Hcl 10 Mg Tablet 1 Tab PO TID PRN 11/01/14 Reported Celexa (Citalopram Hydrobromide) 40 Mg Tablet 1 Tab PO DAILY 11/01/14 Reported Cetirizine Hcl 10 Mg Tablet 1 Tab PO DAILY 11/01/14 Reported Proair Hfa Inhaler (Albuterol Sulfate) 8.5 Gm Hfa.aer.ad 2 Puff IH PRN Q4-6HRS 11/01/14 Reported Comments CXR IMPRESSION: 1. New left internal jugular temporary dialysis catheter in acceptable position. Otherwise stable support lines and tubes 2. Increasing pulmonary infiltrates and small right pleural effusion Impression . IMPRESSION: 1. Acute hypoxemic respiratory failure multifactorial. 2. Shock, likely combination of Cardiogenic (EF15%), Septic, no pressors now 3. Possible pneumonia, gram-negative, gram-positive. Chest x-ray abnormal suspect combination of pulmonary edema and pneumonia 5. Colitis seen on CT abdomen and pelvis, likely source of sepsis 6. Atrial fibrillation/atrial flutter. 7. Acute on chronic heart failure. 8. Bilateral pleural effusions.stable 9. History of ASD, status post closure. 10. Chronic obstructive pulmonary disease with exacerbation. 11. Wtlyr-tn-yepnufz cor pulmonale. 12. Severe metabolic acidosis, improved 13. coagulopathy 14. Acute kidney injury-- now on HD 15. Acute liver failure, ? amiodarone induced, improving Bili 16. Positive urine drug screen 17. Cardiomyopathy ejection fraction of 15% 18. Encephalopathy, hepatic, 19. Severe Pulmonary HTN, possible hepato -pulmonary vs due to severe CMP Plan . Continue current support with assist control ventilation Fi02 35%/ PEEP of 5. Daily CPAP trial. will do T-Piece in am before extubation Mental status better, but not ready for extubation, likely hepatic encephalopathy HD Follow CXR/ABG- COVID-19 negative Follow hematology recs ---- holding AC, platelets low Follow nephrology recs-- HD Antibiotics per infectious disease service Follow cardiology input patient echocardiogram revealed ejection fraction 15%, and Afib now off A/C-- S/P cardiac Cath and SAMMY on 11/22-- no intervention-- see report, now on primacor Follow surgery recs--- no surgical plans at this time Nutritional support with TPN Monitor LFT, mild improvement in Bili DVT/GI PPX : SCDS/protonix D/W RN and RT critically ill Total cumulative critical care time from 30 minutes KATHRYN CULVER MD Nov 27, 2020 10:11
[2020-11-27] MEDS: fentaNYL HIGH DOSE PCA 55 ML IV PRN (11:27)
[2020-11-27] MEDS: METOPROLOL IV PUSH 5 MG/5 ML VIAL. IVP SCH ×2 (11:55→21:39)
[2020-11-27] MEDS: TPN PER PHARMACY MC PRN (12:12)
--- NOTE | 2020-11-27 12:15 | NUR ---
Pharmacy TPN Dosing Note S: NANY MARTIN is a 39 year old F Currently receiving Central Continuous TPN started 11/25/20 B:Pertinent PMH: FAILED TF (HIGH GASTRIC RESIDUALS) Height: 5 feet, 4 inches Weight: 72.7 kg Current diet: NPO LABS: Sodium: 137 Potassium: 3.8 Chloride: 99 Calcium: 9.1 Corrected Calcium: 9.98 Magnesium: 2.2 CO2: 27 SCr: 1.8 Glucose: 249 Albumin: 2.9 AST: 49 ALT: 84 TPN FORMULA: TPN TYPE: Central Continuous AMINO ACIDS: 85 gm DEXTROSE: 195 gm SODIUM CHLORIDE: 50 mEq POTASSIUM CHLORIDE: 20 mEq MAGNESIUM: 5 mEq MULTIPLE VITAMIN: 5 ml TRACE ELEMENTS: 1 ml(s) TPN PLAN: Patient started on propofol 11/26, lipids removed from TPN today. R: Change TPN per plan and ordered formula Will monitor electrolytes, glucose, and tolerance to TPN. Dulce Orellana [facility], 11/27/20 [id number]
[2020-11-27] MEDS: PROPOFOL 100 ML IV PRN ×2 (13:02→21:53)
[2020-11-27] MEDS: MICAFUNGIN 100 MG in IV DEXTROSE 5% 100ML 100 ML IV SCH (13:14)
[2020-11-27] MEDS: INSULIN GLARGINE SYRINGE. SQ SCH (21:39)
[2020-11-27] MEDS: DAPTOmycin (GENERIC) IVPB 400 MG in IV NORMAL SALINE 50ML 50 ML IV SCH (21:44)
[2020-11-27] MEDS ORDERED: DEXTROSE 70% IV SCH (22:00)
[2020-11-27] MEDS ORDERED: [UNRECOGNIZED DRUG - OTHER] IV SCH (22:00)
[2020-11-27] MEDS ORDERED: AMINO ACID IV SCH (22:00)
[2020-11-27] MEDS ORDERED: TOTAL PARENTERAL NUTRITION IV SCH (22:00)
[2020-11-28] VITALS (24 sets, daily range): BP systolic 98–154; BP diastolic 51–85
[2020-11-28] MEDS: PROPOFOL 100 ML IV PRN ×3 (04:31→23:09)
[2020-11-28] MEDS: HYDROCORTISONE SOD SUCC/PF 100 MG/2 ML VIAL. IVP SCH ×3 (06:14→21:40)
[2020-11-28 07:07] LABS: CALCIUM 9.3 mg/dL (8.5-10.1); CREATININE 1.5 mg/dL (0.6-1.0); GFR 46.8; MAGNESIUM 2.2 mg/dL (1.8-2.4); PHOSPHORUS 3.5 mg/dL (2.6-4.7); POTASSIUM 3.4 mmol/L (3.5-5.1)
[2020-11-28 07:14] LABS: BASO % 0 % (0-3); EOS % 0 % (0-3); HEMATOCRIT 24.9 % (36.0-47.0); HEMOGLOBIN 7.7 g/dL (12.0-15.5); LYMPH % 5 % (24-48); MEAN CORPUSCULAR HEMOGLOBIN 21 pg (25-35); MEAN CORPUSCULAR HGB CONC 31 g/dL (31-37); MEAN CORPUSCULAR VOLUME 69 fL (79-100); MONO % 5 % (0-9); NEUT # 17.8 x10^3/uL (1.8-7.7); NEUT % 90 % (31-73); PLATELET COUNT 51 x10^3/uL (140-400); RED BLOOD COUNT 3.62 x10^6/uL (3.50-5.40); RED CELL DISTRIBUTION WIDTH 29.3 % (11.5-14.5); WHITE BLOOD COUNT 19.8 x10^3/uL (4.0-11.0)
--- NOTE | 2020-11-28 07:16 | RAD ---
XR CHEST 1V History: Reason: CHF ICU#105 / Spl. Instructions: / History: Comparison: November 26, 2020 Findings: Unchanged interstitial thickening and ill-defined opacities. Enlarged cardiac size, unchanged. Prior median sternotomy. Stable endotracheal tube, enteric tube and bilateral central lines as well as righ t PICC. No pneumothorax. Impression: 1. Stable appearance of the chest compared to prior. Electronically signed by: Robert Grider DO (11/28/2020 7:14 AM) [id number]
--- NOTE | 2020-11-28 08:07 | PDOC ---
PROGRESS NOTES Date of Service: DATE: 11/28/20 TIME: 08:06 Chief Complaint Chief Complaint impression Multifactorial respiratory failure with severe heart failure (15% ejection fraction but was 60% just a few months ago) Status post intubation Severe pulmonary hypertension with estimated PAP 75 mmHg Sepsis Colitis Severe lactic acidosis Pneumonia Lactic acidosis Severe symptomatic hypoglycemia KENNETH due to vasomotor nephropathy Acute volume overload Coagulopathy History of atrial fibrillation/atrial flutter Secondary cor pulmonale due to pulmonary hypertension Anemia of chronic disease THC USE HPI Chief Complaint: Chief Complain: Shortness of breath History of Present Illness: HPI: Patient is a 39-year-old female with past medical history of asthma, diastolic CHF, dyslipidemia, ASD status post open repair in 2014 who comes to the ED for worsening shortness of breath in the past couple days and also worsening fluid overload and edema in her lower extremity and abdominal region. Patient does have a history of heart failure and due to atrial septal defect that was not repaired until recently. Patient also has been taking Lasix in the past month or so with compliance and she does report good urine output but she feels more distended overall. Denies fevers, chest pain, abdominal pain, dysuria, diarrhea, sick contacts or palpitations or syncopal episodes. Patient does endorse orthopnea. Past Medical/Surgical History: PMH/PSH: Past Medical History: Asthma, Bronchitis, CHF, High Cholesterol, Hypertension, bulging disc, heart valve leaks, neuropathy Past Surgical History: tailbone cysts, ASD repair; PFO closure Allergies: Allergies: Coded Allergies: ibuprofen (Verified Allergy, Intermediate, Hives, 08/08/20) I S O L A T I O N *CONTACT* (Verified Allergy, Unknown, 08/08/20) mrsa + Family History: Family History: Reviewed with no relevant findings Social History: Social History: Smoking Status: Former Smoker Alcohol Use: Occasionally Drug Use: Marijuana History of Present Illness History of Present Illness 11/28 vent support 35%/5 PEEP Continue milrinone and Lasix therapy Trialing On vent, FiO2 35%, PEEP 5. failed trial extubation, she is spontaneously opening eyes and moving her arms. 34 min cc time Continue Dapto, Merrem, renal adjustment and micafungin Off zyvox with thrombocytopenia - neg cults and 10 days of treatment Transesophageal echocardiogram attempted but was unsuccessful 11/27/20 Patient seen and evaluated in ICU. Afebrile. On vent, FiO2 30%, PEEP 5. Will run extubation, she is spontaneously opening eyes and moving her arms. Some elevating blood glucose, will initiate insulin. Continue antibiotics for colitis, per ID. Hemodialysis, per nephrology. 11/26/2020 Remains on vent, FiO2 35%, PEEP 5. Afebrile. Will opens eyes spontaneously. Hb 7.8 today. Off pressors receiving milrinone infusion and IV Lasix. Continue empiric antibiotics, per ID. 11/25/2020 Afebrile. Remains on vent, FiO2 35%, PEEP 5. Tube feeds held yesterday se condary to vomiting. KUB yesterday showed nonobstructive bowel gas pattern, unchanged stool and gas distention of the proximal colon. CXR showed interval improvement in the bilateral perihilar infiltrates. Hemoglobin 6.2 today. Currently receiving HD. will continue to monitor and transfuse as necessary. 11/24/2020 Afebrile. On vent, FiO2 35%, PEEP 5. No acute events overnight. Continue supportive care. Continue daptomycin, meropenem, micafungin, Zyvox. HD per nephrology. 11/23/2020 Patient seen in ICU. She remains intubated and sedated, FiO2 35%, PEEP 5. SAMMY was attempted but unsuccessful; plans to repeat SAMMY when extubated. Continue Dapto, meropenem, micafungin, and Zyvox, per ID 11/22/2020 Patient seen in ICU. On vent, FiO2 35%, PEEP 5. Afebrile. Receiving hemodialysis this morning. Plan for heart cath today. Discussed with RN. 11/21/2020 Patient seen and evaluated in ICU. Intubated on vent with FiO2 35%, PEEP 5. She is to have right heart cath today. Continue IV antibiotics, per ID. Charts and labs reviewed, discussed with RN. 11/20/2020 Patient seen and examined in the ICU She is still on the vent Assist-control/400/40 percent with 6 of PEEP She is off the pressors today She is oxygenating a little bit better Discussed with baby doctor considering right heart cath tomorrow On Tranexamic acid qtt per oncologist 11/19/2020 Patient seen and examined in the ICU She remains intubated Assist-control//400/40 percent with 6 of PEEP Is currently in A. fib Also on CRRT Chart reviewed Discussed with RN She remains extremely critically ill 11/18/2020 Patient seen and examined in the ICU She is now intubated Ejection fraction noted to be 15% She is extremely critically ill volume overloaded desatting to 78% despite being on 80% FiO2 on the vent Her mom is present I spent quite a bit of time discussing the case with her and escorted her to the [facility] where she wants to pray Discussed with RN Discussed with case management Chart reviewed Patient is on assist-control//400/80 percent FiO2 with 8 of PEEP We are considering starting CRRT this afternoon She is sedated with Versed fentanyl and Also has Levophed and vasopressin running On IV Zyvox Extremely critically ill 11/16/2020 Patient seen and examined in the ICU CT abdomen reviewed looks like she has some possible colitis Lactic acid has decreased from 22 down to 8 Discussed with RN Discussed with case management Chart reviewed Vitals Vitals Vital Signs Date Time Temp Pulse Resp B/P (MAP) Pulse Ox O2 Delivery O2 Flow Rate FiO2 11/28/20 07:00 98.3 106 18 124/65 (84) 100 Ventilator 98.3 Physical Exam Physical Exam GENERAL: Awake, orally intubated, calm HEENT: Pupils equal, ETT/OGT tube present NECK: Right IJ and left HDC, clean LUNGS: Clear anteriorly. HEART: S1 and S2, regular, murmur present ABDOMEN: Mildly distended, soft, hypoactive bowel sounds : Sky in place EXTREMITIES: Trace edema. SCD bilaterally NEUROLOGIC: Awake, noncommunicative SKIN: warm to touch. No signs of generalized rash. LINES: RUE-PICC, R fem art line, RIJ, LIJ/HDC without signs of complications General: Alert, Cooperative, Other (Intubated) Heart: No murmurs, Other (Tachycardic) Lungs: Clear Abdomen: Normal bowel sounds, Other (Minimal OG output) Extremities: No cyanosis, No edema Skin: No rashes, No breakdown Labs LABS LEFT VENTRICLE The left ventricle is normal size. There is borderline concentric left ventricular hypertrophy. The left ventricular systolic function is severely impaired. Estimated ejection fraction 15-20%. Flattening of interventricular septum consistent with RV volume/pressure overload. Unable to determine diastolic fx. No left ventricle thrombus noted on this study. RIGHT VENTRICLE The right ventricle is severely dilated. There is normal right ventricular wall thickness. Systolic function is severely reduced. There is flattening of the ventricular septum indicating right ventricular volume and pressure overload. ATRIA The left atrium is moderately dilated. The right atrium is moderately dilated. The interatrial septum is intact with no evidence for an atrial septal defect or patent foramen ovale as noted on 2-D or Doppler imaging. AORTIC VALVE The aortic valve is normal in structure and function. Doppler and Color Flow revealed no significant aortic regurgitation. There is no significant aortic valvular stenosis. MITRAL VALVE The mitral valve is mildly thickened. The velocity across the mitral valve is increased with a calculated gradient 9.6 mmHg. There is no evidence of mitral valve prolapse. There is no mitral valve stenosis. Doppler and Color-flow revealed mild to moderate eccentric mitral regurgitation. TRICUSPID VALVE The tricuspid valve is normal in structure and function. Doppler and Color Flow revealed severe tricuspid regurgitation. Estimated PAP 75 mmHg. There is no tricuspid valve stenosis. PULMONIC VALVE The pulmonary valve is normal in structure and function. Doppler and Color Flow revealed no pulmonic valvular regurgitation. GREAT VESSELS The aortic root is normal in size. The ascending aorta is normal in size. The IVC is dilated and unresponsive. PERICARDIAL EFFUSION There is no evidence of significant pericardial effusion. Critical Notification Critical Value: No <Conclusion> The left ventricular systolic function is severely impaired. Estimated ejection fraction 15-20%. Flattening of interventricular septum consistent with RV volume/pressure overload. The right ventricle is severely dilated. Moderate biatrial dilation. Mild to moderate eccentric mitral regurgitation. Severe tricuspid regurgitation. Severe pulmonary hypertension with estimated PAP 75 mmHg. There is no evidence of significant pericardial effusion. Signed by : Saad Mullins, Electronically Approved : 11/18/2020 08:13:51 DICTATED and SIGNED BY: SAAD MULLINS MD DATE: 11/18/20 [id number] Laboratory Tests Test 11/27/20 08:31 11/27/20 12:59 11/27/20 16:40 11/28/20 06:20 Glucose (Fingerstick) 249 mg/dL (70-99) 249 mg/dL (70-99) 192 mg/dL (70-99) White Blood Count 19.8 x10^3/uL (4.0-11.0) Red Blood Count 3.62 x10^6/uL (3.50-5.40) Hemoglobin 7.7 g/dL (12.0-15.5) Hematocrit 24.9 % (36.0-47.0) Mean Corpuscular Volume 69 fL (79-100) Mean Corpuscular Hemoglobin 21 pg (25-35) Mean Corpuscular Hemoglobin Concent 31 g/dL (31-37) Red Cell Distribution Width 29.3 % (11.5-14.5) Platelet Count 51 x10^3/uL (140-400) Neutrophils (%) (Auto) 90 % (31-73) Lymphocytes (%) (Auto) 5 % (24-48) Monocytes (%) (Auto) 5 % (0-9) Eosinophils (%) (Auto) 0 % (0-3) Basophils (%) (Auto) 0 % (0-3) Neutrophils # (Auto) 17.8 x10^3/uL (1.8-7.7) Lymphocytes # (Auto) 1.0 x10^3/uL (1.0-4.8) Monocytes # (Auto) 1.0 x10^3/uL (0.0-1.1) Eosinophils # (Auto) 0.0 x10^3/uL (0.0-0.7) Basophils # (Auto) 0.0 x10^3/uL (0.0-0.2) Sodium Level 140 mmol/L (136-145) Potassium Level 3.4 mmol/L (3.5-5.1) Chloride Level 102 mmol/L (98-107) Carbon Dioxide Level 30 mmol/L (21-32) Anion Gap 8 (6-14) Blood Urea Nitrogen 70 mg/dL (7-20) Creatinine 1.5 mg/dL (0.6-1.0) Estimated GFR (Cockcroft-Gault) 46.8 Glucose Level 181 mg/dL (70-99) Calcium Level 9.3 mg/dL (8.5-10.1) Phosphorus Level 3.5 mg/dL (2.6-4.7) Magnesium Level 2.2 mg/dL (1.8-2.4) Triglycerides Level 90 mg/dL (0-150) Assessment and Plan Assessmemt and Plan Problems Medical Problems: (1) KENNETH (acute kidney injury) Status: Acute (2) Atrial fibrillation with RVR Status: Acute (3) CHF (congestive heart failure) Status: Acute (4) Hypoglycemia Status: Acute (5) Pneumonia Status: Acute Comment Review of Relevant I have reviewed the following items josé (where applicable) has been applied. Labs Laboratory Tests Test 11/26/20 09:20 11/27/20 05:55 11/27/20 06:00 11/27/20 08:00 O2 Saturation 97 % (92-99) 96 % (92-99) Arterial Blood pH 7.35 (7.35-7.45) 7.38 (7.35-7.45) Arterial Blood pCO2 at Patient Temp 51 mmHg (35-46) 49 mmHg (35-46) Arterial Blood pO2 at Patient Temp 109 mmHg (75-108) 96 mmHg (75-108) Arterial Blood HCO3 28 mmol/L (21-28) 28 mmol/L (21-28) Arterial Blood Base Excess 2 mmol/L (-3-3) 3 mmol/L (-3-3) FiO2 30 30% ps 14 peep 5 White Blood Count 16.8 x10^3/uL (4.0-11.0) Red Blood Count 3.49 x10^6/uL (3.50-5.40) Hemoglobin 7.5 g/dL (12.0-15.5) Hematocrit 24.1 % (36.0-47.0) Mean Corpuscular Volume 69 fL (79-100) Mean Corpuscular Hemoglobin 21 pg (25-35) Mean Corpuscular Hemoglobin Concent 31 g/dL (31-37) Red Cell Distribution Width 28.7 % (11.5-14.5) Platelet Count 58 x10^3/uL (140-400) Neutrophils (%) (Auto) 88 % (31-73) Lymphocytes (%) (Auto) 7 % (24-48) Monocytes (%) (Auto) 6 % (0-9) Eosinophils (%) (Auto) 0 % (0-3) Basophils (%) (Auto) 0 % (0-3) Neutrophils # (Auto) 14.7 x10^3/uL (1.8-7.7) Lymphocytes # (Auto) 1.1 x10^3/uL (1.0-4.8) Monocytes # (Auto) 0.9 x10^3/uL (0.0-1.1) Eosinophils # (Auto) 0.0 x10^3/uL (0.0-0.7) Basophils # (Auto) 0.0 x10^3/uL (0.0-0.2) Sodium Level 137 mmol/L (136-145) Potassium Level 3.8 mmol/L (3.5-5.1) Chloride Level 99 mmol/L (98-107) Carbon Dioxide Level 27 mmol/L (21-32) Anion Gap 11 (6-14) Blood Urea Nitrogen 65 mg/dL (7-20) Creatinine 1.8 mg/dL (0.6-1.0) Estimated GFR (Cockcroft-Gault) 37.9 Glucose Level 248 mg/dL (70-99) Calcium Level 9.1 mg/dL (8.5-10.1) Phosphorus Level 3.4 mg/dL (2.6-4.7) Magnesium Level 2.2 mg/dL (1.8-2.4) Total Bilirubin 3.8 mg/dL (0.2-1.0) Direct Bilirubin 2.4 mg/dL (0.0-0.2) Aspartate Amino Transf (AST/SGOT) 49 U/L (15-37) Alanine Aminotransferase (ALT/SGPT) 84 U/L (14-59) Alkaline Phosphatase 110 U/L (46-116) Total Protein 6.1 g/dL (6.4-8.2) Albumin 2.9 g/dL (3.4-5.0) Test 11/27/20 08:31 11/27/20 12:59 11/27/20 16:40 11/28/20 06:20 Glucose (Fingerstick) 249 mg/dL (70-99) 249 mg/dL (70-99) 192 mg/dL (70-99) White Blood Count 19.8 x10^3/uL (4.0-11.0) Red Blood Count 3.62 x10^6/uL (3.50-5.40) Hemoglobin 7.7 g/dL (12.0-15.5) Hematocrit 24.9 % (36.0-47.0) Mean Corpuscular Volume 69 fL (79-100) Mean Corpuscular Hemoglobin 21 pg (25-35) Mean Corpuscular Hemoglobin Concent 31 g/dL (31-37) Red Cell Distribution Width 29.3 % (11.5-14.5) Platelet Count 51 x10^3/uL (140-400) Neutrophils (%) (Auto) 90 % (31-73) Lymphocytes (%) (Auto) 5 % (24-48) Monocytes (%) (Auto) 5 % (0-9) Eosinophils (%) (Auto) 0 % (0-3) Basophils (%) (Auto) 0 % (0-3) Neutrophils # (Auto) 17.8 x10^3/uL (1.8-7.7) Lymphocytes # (Auto) 1.0 x10^3/uL (1.0-4.8) Monocytes # (Auto) 1.0 x10^3/uL (0.0-1.1) Eosinophils # (Auto) 0.0 x10^3/uL (0.0-0.7) Basophils # (Auto) 0.0 x10^3/uL (0.0-0.2) Sodium Level 140 mmol/L (136-145) Potassium Level 3.4 mmol/L (3.5-5.1) Chloride Level 102 mmol/L (98-107) Carbon Dioxide Level 30 mmol/L (21-32) Anion Gap 8 (6-14) Blood Urea Nitrogen 70 mg/dL (7-20) Creatinine 1.5 mg/dL (0.6-1.0) Estimated GFR (Cockcroft-Gault) 46.8 Glucose Level 181 mg/dL (70-99) Calcium Level 9.3 mg/dL (8.5-10.1) Phosphorus Level 3.5 mg/dL (2.6-4.7) Magnesium Level 2.2 mg/dL (1.8-2.4) Triglycerides Level 90 mg/dL (0-150) Laboratory Tests Test 11/27/20 08:31 11/27/20 12:59 11/27/20 16:40 11/28/20 06:20 Glucose (Fingerstick) 249 mg/dL (70-99) 249 mg/dL (70-99) 192 mg/dL (70-99) White Blood Count 19.8 x10^3/uL (4.0-11.0) Red Blood Count 3.62 x10^6/uL (3.50-5.40) Hemoglobin 7.7 g/dL (12.0-15.5) Hematocrit 24.9 % (36.0-47.0) Mean Corpuscular Volume 69 fL (79-100) Mean Corpuscular Hemoglobin 21 pg (25-35) Mean Corpuscular Hemoglobin Concent 31 g/dL (31-37) Red Cell Distribution Width 29.3 % (11.5-14.5) Platelet Count 51 x10^3/uL (140-400) Neutrophils (%) (Auto) 90 % (31-73) Lymphocytes (%) (Auto) 5 % (24-48) Monocytes (%) (Auto) 5 % (0-9) Eosinophils (%) (Auto) 0 % (0-3) Basophils (%) (Auto) 0 % (0-3) Neutrophils # (Auto) 17.8 x10^3/uL (1.8-7.7) Lymphocytes # (Auto) 1.0 x10^3/uL (1.0-4.8) Monocytes # (Auto) 1.0 x10^3/uL (0.0-1.1) Eosinophils # (Auto) 0.0 x10^3/uL (0.0-0.7) Basophils # (Auto) 0.0 x10^3/uL (0.0-0.2) Sodium Level 140 mmol/L (136-145) Potassium Level 3.4 mmol/L (3.5-5.1) Chloride Level 102 mmol/L (98-107) Carbon Dioxide Level 30 mmol/L (21-32) Anion Gap 8 (6-14) Blood Urea Nitrogen 70 mg/dL (7-20) Creatinine 1.5 mg/dL (0.6-1.0) Estimated GFR (Cockcroft-Gault) 46.8 Glucose Level 181 mg/dL (70-99) Calcium Level 9.3 mg/dL (8.5-10.1) Phosphorus Level 3.5 mg/dL (2.6-4.7) Magnesium Level 2.2 mg/dL (1.8-2.4) Triglycerides Level 90 mg/dL (0-150) Microbiology 11/17/20 Blood Culture - Final, Complete NO GROWTH AFTER 5 DAYS 11/15/20 Urine Culture - Final, Complete Medications Current Medications Furosemide (Lasix) 40 mg 1X ONCE IVP Last administered on 11/15/20at 11:16; Start 11/15/20 at 10:15; Stop 11/15/20 at 10:22; Status DC Vancomycin HCl 2 gm/Sodium Chloride 500 ml @ 250 mls/hr 1X ONCE IV Last administered on 11/15/20at 13:37; Start 11/15/20 at 13:00; Stop 11/15/20 at 14:59; Status DC Piperacillin Sod/ Tazobactam Sod 3.375 gm/Sodium Chloride 50 ml @ 100 mls/hr 1X ONCE IV Last administered on 11/15/20at 13:05; Start 11/15/20 at 13:00; Stop 11/15/20 at 13:29; Status DC Dextrose (Dextrose 50%-Water Syringe) 25 gm STK-MED ONCE IV ; Start 11/15/20 at 12:27; Stop 11/15/20 at 12:27; Status DC Dextrose (Dextrose 50%-Water Syringe) 25 gm 1X ONCE IV Last administered on 11/15/20at 12:35; Start 11/15/20 at 12:45; Stop 11/15/20 at 12:46; Status DC Ondansetron HCl (Zofran) 4 mg PRN Q8HRS PRN IV NAUSEA/VOMITING; Start 11/15/20 at 13:00; Stop 11/15/20 at 18:28; Status DC Fentanyl Citrate (Fentanyl 2ml Vial) 50 mcg PRN Q1HR PRN IV PAIN; Start 11/15/20 at 13:00; Stop 11/16/20 at 12:59; Status DC Acetaminophen (Tylenol) 650 mg PRN Q4HRS PRN PO FEVER > 100.3'F; Start 11/15/20 at 13:00; Stop 11/15/20 at 18:29; Status DC Dextrose/Sodium Chloride 1,000 ml @ 50 mls/hr Q20H IV Last administered on 11/17/20at 09:28; Start 11/15/20 at 16:00; Stop 11/19/20 at 17:06; Status DC Sodium Bicarbonate (Sodium Bicarb Adult 8.4% Syr) 100 meq 1X ONCE IV Last administered on 11/15/20at 16:43; Start 11/15/20 at 15:30; Stop 11/15/20 at 15:31; Status DC Vancomycin HCl (Vanco Per Pharmacy) 1 each PRN DAILY PRN MC SEE COMMENTS; S tart 11/15/20 at 16:15; Stop 11/16/20 at 11:05; Status DC Cefepime HCl (Maxipime) 2 gm Q24H IVP Last administered on 11/16/20at 16:30; Start 11/15/20 at 17:00; Stop 11/17/20 at 11:51; Status DC Sennosides (Senna) 17.2 mg PRN BID PRN PO CONSTIPATION; Start 11/15/20 at 16:15 Docusate Sodium (Colace) 100 mg PRN DAILY PRN PO HARD STOOLS; Start 11/15/20 at 16:15 Ondansetron HCl (Zofran) 4 mg PRN Q6HRS PRN IVP NAUSEA/VOMITING; Start 11/15/20 at 16:15 Dextrose (Dextrose 50%-Water Syringe) 12.5 gm PRN Q15MIN PRN IV SEE COMMENTS; Start 11/15/20 at 16:15 Acetaminophen (Tylenol) 650 mg PRN Q4HRS PRN PO TEMP OVER 100.4F OR MILD PAIN Last administered on 11/23/20at 08:39; Start 11/15/20 at 16:15 Heparin Sodium (Porcine) (Heparin Sodium) 5,000 unit Q12HR SQ ; Start 11/15/20 at 21:00; Stop 11/15/20 at 16:17; Status DC Amiodarone HCl (Cordarone) 200 mg DAILY PO ; Start 11/16/20 at 09:00; Stop 11/15/20 at 16:38; Status DC Aspirin (Tatianna Aspirin) 325 mg DAILY PO ; Start 11/16/20 at 09:00; Stop 11/15/20 at 16:38; Status DC Fluticasone Propionate (Flonase) 2 spray DAILY NS Last administered on 11/25/20at 12:25; Start 11/16/20 at 09:00 Gabapentin (Neurontin) 600 mg BID PO Last administered on 11/27/20at 08:27; Start 11/15/20 at 21:00 Metoprolol Tartrate (Lopressor) 25 mg BID PO Last administered on 11/15/20at 21:28; Start 11/15/20 at 21:00; Stop 11/16/20 at 09:08; Status DC Citalopram Hydrobromide (CeleXA) 40 mg DAILY PO Last administered on 11/27/20at 08:27; Start 11/16/20 at 09:00 Pantoprazole Sodium (Protonix) 40 mg DAILYAC PO Last administered on 11/17/20at 08:36; Start 11/16/20 at 07:30; Stop 11/17/20 at 14:53; Status DC Thiamine Mononitrate (Vitamin B-1) 300 mg DAILY PO ; Start 11/15/20 at 16:30; Stop 11/15/20 at 16:22; Status DC Thiamine HCl 300 mg/Dextrose 53 ml @ 102 mls/hr Q8HRS IV Last administered on 11/17/20at 06:17; Start 11/15/20 at 22:00; Stop 11/17/20 at 09:46; Status DC Metronidazole 100 ml @ 100 mls/hr Q12HR IV Last administered on 11/17/20at 08:41; Start 11/15/20 at 21:00; Stop 11/17/20 at 11:51; Status DC Metoprolol Tartrate (Lopressor) 50 mg BID PO Last administered on 11/17/20at 09:24; Start 11/16/20 at 09:15; Stop 11/17/20 at 12:56; Status DC Furosemide (Lasix) 40 mg 1X ONCE IVP Last administered on 11/16/20at 14:08; Start 11/16/20 at 14:00; Stop 11/16/20 at 14:01; Status DC Potassium Chloride (Klor-Con) 60 meq 1X ONCE PO Last administered on 11/16/20at 14:06; Start 11/16/20 at 14:00; Stop 11/16/20 at 14:01; Status DC Calcium Carbonate/ Glycine (Tums) 500 mg PRN Q4HRS PRN PO MILD INDIGESTION; Start 11/16/20 at 21:15; Stop 11/18/20 at 09:38; Status DC Calcium Carbonate/ Glycine (Tums) 1,000 mg PRN Q4HRS PRN PO SEVERE INDIGESTION Last administered on 11/16/20at 21:37; Start 11/16/20 at 21:30 Albuterol/ Ipratropium (Duoneb) 3 ml RTQID NEB Last administered on 11/27/20at 20:19; Start 11/17/20 at 09:00 Budesonide (Pulmicort) 0.5 mg RTBID NEB Last administered on 11/27/20at 20:19; Start 11/17/20 at 09:00 Thiamine Mononitrate (Vitamin B-1) 300 mg TID PO Last administered on 11/27/20at 08:28; Start 11/17/20 at 14:00 Sodium Bicarbonate 150 meq/Dextrose 1,150 ml @ 125 mls/hr Q9H12M ONCE IV Last administered on 11/17/20at 11:26; Start 11/17/20 at 11:30; Stop 11/17/20 at 20:41; Status DC Norepinephrine Bitartrate 8 mg/ Dextrose 258 ml @ 15.344 mls/ hr CONT PRN IV PER PROTOCOL Last administered on 11/17/20at 11:32; Start 11/17/20 at 11:15; Stop 11/17/20 at 14:30; Status DC Meropenem 500 mg/ Sodium Chloride 50 ml @ 100 mls/hr Q8HRS IV Last administered on 11/18/20at 06:17; Start 11/17/20 at 12:30; Stop 11/18/20 at 13:01; Status DC Daptomycin 390 mg/ Sodium Chloride 50 ml @ 100 mls/hr Q24H IV Last administered on 11/18/20at 13:11; Start 11/17/20 at 13:00; Stop 11/18/20 at 14:09; Status DC Micafungin Sodium 100 mg/Dextrose 100 ml @ 100 mls/hr Q24H IV Last administered on 11/27/20at 13:14; Start 11/17/20 at 12:30 Lidocaine HCl (Xylocaine-Mpf 1% 2ml Vial) 2 ml 1X ONCE INJ ; Start 11/17/20 at 12:00; Stop 11/17/20 at 12:07; Status DC Vasopressin 20 unit/Dextrose 101 ml @ 12 mls/hr CONT PRN IV SEE I/O RECORD Last administered on 11/18/20at 22:15; Start 11/17/20 at 13:30 Vasopressin 20 unit/Dextrose 101 ml @ 12 mls/hr CONT PRN IV SEE I/O RECORD; Start 11/17/20 at 13:30; Status UNV Phenylephrine HCl 50 mg/Sodium Chloride 255 ml @ 12.133 mls/ hr CONT PRN IV SEE I/O RECORD; Start 11/17/20 at 13:30 Norepinephrine Bitartrate 32 mg/ Dextrose 250 ml @ 3.703 mls/ hr CONT PRN IV SEE I/O RECORD Last administered on 11/18/20at 03:50; Start 11/17/20 at 13:30 Hydrocortisone Sodium Succinate (Solu-CORTEF) 300 mg 1X ONCE IVP Last ad ministered on 11/17/20at 14:25; Start 11/17/20 at 14:00; Stop 11/17/20 at 14:01; Status DC Hydrocortisone Sodium Succinate (Solu-CORTEF) 100 mg Q8HRS IVP Last administered on 11/26/20at 14:16; Start 11/17/20 at 22:00; Stop 11/26/20 at 19:06; Status DC Ringer's Solution 1,000 ml @ 200 mls/hr Q5H IV Last administered on 11/19/20at 08:07; Start 11/17/20 at 15:00; Stop 11/19/20 at 15:20; Status DC Ringer's Solution 1,000 ml @ 1,000 mls/hr Q1H ONCE IV Last administered on 11/17/20at 15:45; Start 11/17/20 at 14:00; Stop 11/17/20 at 14:59; Status DC Fentanyl Citrate 30 ml @ 0 mls/hr CONT PRN IV SEE PROTOCOL Last administered on 11/19/20at 16:22; Start 11/17/20 at 14:00; Stop 11/19/20 at 23:00; Status DC Fentanyl Citrate (Fentanyl 2ml Vial) 25 mcg PRN Q1HR PRN IV SEE COMMENTS; Start 11/17/20 at 14:00 Fentanyl Citrate (Fentanyl 2ml Vial) 50 mcg PRN Q1HR PRN IV SEE COMMENTS; Start 11/17/20 at 14:00 Chlorhexidine Gluconate (Peridex) 15 ml BID MM Last administered on 11/19/20at 09:00; Start 11/17/20 at 21:00; Stop 11/19/20 at 20:39; Status DC Morphine Sulfate (Morphine Sulfate) 2 mg PRN Q1HR PRN IV SEE COMMENTS.; Start 11/17/20 at 14:00 Morphine Sulfate (Morphine Sulfate) 4 mg PRN Q1HR PRN IV SEE COMMENTS.; Start 11/17/20 at 14:00 Midazolam HCl 100 ml @ 0 mls/hr CONT PRN IV SEE PROTOCOL Last administered on 11/24/20at 18:33; Start 11/17/20 at 14:00; Stop 11/26/20 at 13:32; Status DC Succinylcholine Chloride (Anectine) 200 mg STK-MED ONCE .ROUTE ; Start 11/17/20 at 14:00; Stop 11/17/20 at 14:00; Status DC Etomidate (Amidate) 20 mg STK-MED ONCE IV ; Start 11/17/20 at 14:00; Stop 11/17/20 at 14:00; Status DC Sodium Bicarbonate (Sodium Bicarb Adult 8.4% Syr) 50 meq STK-MED ONCE .ROUTE ; Start 11/17/20 at 14:02; Stop 11/17/20 at 14:03; Status DC Sodium Bicarbonate (Sodium Bicarb Adult 8.4% Syr) 100 meq 1X ONCE IV Last administered on 11/17/20at 14:20; Start 11/17/20 at 14:15; Stop 11/17/20 at 14:16; Status DC Etomidate (Amidate) 12 mg 1X ONCE IV Last administered on 11/17/20at 14:15; Start 11/17/20 at 14:15; Stop 11/17/20 at 14:16; Status DC Succinylcholine Chloride (Anectine) 100 mg 1X ONCE IV Last administered on 11/17/20at 14:15; Start 11/17/20 at 14:15; Stop 11/17/20 at 14:16; Status DC Sodium Bicarbonate (Sodium Bicarb Adult 8.4% Syr) 100 meq 1X ONCE IV Last administered on 11/17/20at 14:15; Start 11/17/20 at 14:15; Stop 11/17/20 at 14:16; Status DC Epinephrine HCl 5 mg/Sodium Chloride 255 ml @ 24.266 mls/ hr CONT PRN IV SEE I/O RECORD Last administered on 11/17/20at 19:44; Start 11/17/20 at 14:45; Stop 11/17/20 at 20:00; Status DC Pantoprazole Sodium (PROTONIX VIAL for IV PUSH) 40 mg DAILYAC IVP Last administered on 11/27/20at 08:26; Start 11/18/20 at 07:30 Albumin Human 500 ml @ 125 mls/hr 1X ONCE IV Last administered on 11/17/20at 15:44; Start 11/17/20 at 15:15; Stop 11/17/20 at 19:14; Status DC Digoxin (Lanoxin) 500 mcg 1X ONCE IV Last administered on 11/17/20at 15:43; Start 11/17/20 at 15:30; Stop 11/17/20 at 15:31; Status DC Lidocaine HCl (Xylocaine 2% Topical 5gm Tube) 5 maken[place] STK-MED ONCE TP ; Start 11/16/20 at 12:00; Stop 11/17/20 at 15:35; Status DC Calcium Gluconate 1000 mg/Sodium Chloride 110 ml @ 220 mls/hr 1X ONCE IV Last administered on 11/17/20at 17:36; Start 11/17/20 at 17:15; Stop 11/17/20 at 17:44; Status DC Linezolid/Dextrose 300 ml @ 300 mls/hr Q12HR IV ; Start 11/17/20 at 21:00; Status Cancel Linezolid/Dextrose 300 ml @ 300 mls/hr Q12HR IV ; Start 11/17/20 at 21:00; Status UNV Linezolid/Dextrose 300 ml @ 300 mls/hr Q12HR IV Last administered on 11/26/20at 11:26; Start 11/17/20 at 18:00; Stop 11/26/20 at 15:42; Status DC Epinephrine HCl 10 mg/Sodium Chloride 250 ml @ 11.85 mls/ hr CONT PRN IV SEE I/O RECORD Last administered on 11/17/20at 22:09; Start 11/17/20 at 17:30 Vecuronium [place] (Norcuron Bolus) 6 mg PRN Q2HR PRN IV Vent management Last administered on 11/17/20at 22:11; Start 11/17/20 at 20:00 Lidocaine HCl (Buffered Lidocaine 1%) 3 ml STK-MED ONCE .ROUTE ; Start 11/18/20 at 09:21; Stop 11/18/20 at 09:22; Status DC Lidocaine HCl (Buffered Lidocaine 1%) 6 ml 1X ONCE INJ Last administered on 11/18/20at 09:53; Start 11/18/20 at 09:45; Stop 11/18/20 at 09:46; Status DC Potassium Chloride 15 meq/ Bicarbonate Dialysis Soln w/ out KCl 5,007.5 ml @ 1,250 mls/ hr Q4H1M IV Last administered on 11/22/20at 07:35; Start 11/18/20 at 11:00; Stop 11/23/20 at 21:49; Status DC Potassium Chloride 15 meq/ Bicarbonate Dialysis Soln w/ out KCl 5,007.5 ml @ 1,250 mls/ hr Q4H1M IV Last administered on 11/22/20at 07:35; Start 11/18/20 at 11:00; Stop 11/23/20 at 21:49; Status DC Potassium Chloride 15 meq/ Bicarbonate Dialysis Soln w/ out KCl 5,007.5 ml @ 1,250 mls/ hr Q4H1M IV Last administered on 11/22/20at 07:35; Start 11/18/20 at 11:00; Stop 11/23/20 at 21:49; Status DC Tranexamic Acid 50 ml @ 50 mls/hr Q12HR INJ Last administered on 11/23/20at 08:40; Start 11/18/20 at 13:00; Stop 11/23/20 at 16:00; Status DC Daptomycin 390 mg/ Sodium Chloride 50 ml @ 100 mls/hr Q48H IV ; Start 11/20/20 at 13:00; Stop 11/18/20 at 16:23; Status DC Meropenem 500 mg/ Sodium Chloride 50 ml @ 100 mls/hr DAILY IV ; Start 11/19/20 at 09:00; Stop 11/18/20 at 16:16; Status DC Prothrombin Complex Concent (Human) 2000 unit/ Miscellaneous 80 ml @ 160 mls/hr 1X ONCE IV Last administered on 11/18/20at 14:48; Start 11/18/20 at 14:30; Stop 11/18/20 at 14:59; Status DC Meropenem 1 gm/ Sodium Chloride 100 ml @ 200 mls/hr Q12HR IV Last administered on 11/21/20at 21:22; Start 11/18/20 at 21:00; Stop 11/22/20 at 15:50; Status DC Daptomycin 500 mg/ Sodium Chloride 50 ml @ 100 mls/hr Q48H IV Last administered on 11/21/20at 20:46; Start 11/19/20 at 21:00; Stop 11/22/20 at 15:52; Status DC Sodium Phosphate 20 mmol/Sodium Chloride 256.6667 ml @ 64.167 m... 1X ONCE IV Last administered on 11/19/20at 13:54; Start 11/19/20 at 12:30; Stop 11/19/20 at 16:29; Status DC Sodium Chloride 1,000 ml @ 0 mls/hr Q0M IV ; Start 11/19/20 at 15:30 Fentanyl Citrate 55 ml @ 0 mls/hr CONT PRN PRN IV SEDATION/PAIN CONTROL Last administered on 11/27/20at 11:27; Start 11/19/20 at 21:00 Potassium Chloride/Water 100 ml @ 100 mls/hr 1X ONCE IV Last administered on 11/20/20at 11:38; Start 11/20/20 at 12:00; Stop 11/20/20 at 12:59; Status DC Sodium Phosphate 20 mmol/Sodium Chloride 256.6667 ml @ 64.167 m... 1X ONCE IV Last administered on 11/20/20at 11:46; Start 11/20/20 at 11:15; Stop 11/20/20 at 15:14; Status DC Potassium Chloride/Water 100 ml @ 100 mls/hr Q1H IV Last administered on 11/20/20at 20:15; Start 11/20/20 at 19:00; Stop 11/20/20 at 20:59; Status DC Sodium Phosphate 20 mmol/Sodium Chloride 256.6667 ml @ 64.167 m... 1X ONCE IV Last administered on 11/21/20at 00:54; Start 11/21/20 at 01:00; Stop 11/21/20 at 04:59; Status DC Info (Tpn Per Pharmacy) 1 each PRN DAILY PRN MC SEE COMMENTS; Start 11/21/20 at 11:45; Status UNV Sodium Phosphate 15 mmol/Sodium Chloride 255 ml @ 62.5 mls/hr 1X ONCE IV Last administered on 11/21/20at 18:19; Start 11/21/20 at 18:30; Stop 11/21/20 at 22:34; Status DC Potassium Chloride/Water 100 ml @ 100 mls/hr 1X ONCE IV Last administered on 11/22/20at 00:55; Start 11/22/20 at 01:00; Stop 11/22/20 at 01:59; Status DC Potassium Chloride/Water 100 ml @ 100 mls/hr 1X ONCE IV Last administered on 11/22/20at 09:35; Start 11/22/20 at 10:00; Stop 11/22/20 at 10:59; Status DC Sodium Phosphate 15 mmol/Sodium Chloride 105 ml @ 105 mls/hr 1X ONCE IV Last administered on 11/22/20at 10:40; Start 11/22/20 at 10:00; Stop 11/22/20 at 10:59; Status DC Lidocaine HCl (Lidocaine 1% 20ml Vial) 20 ml STK-MED ONCE .ROUTE ; Start 11/22/20 at 11:33; Stop 11/22/20 at 11:33; Status DC Iodixanol (Visipaque 320) 100 ml STK-MED ONCE .ROUTE ; Start 11/22/20 at 11:33; Stop 11/22/20 at 11:33; Status DC Heparin Sodium/ Sodium Chloride 500 ml @ As Directed STK-MED ONCE .ROUTE ; Start 11/22/20 at 11:33; Stop 11/22/20 at 11:34; Status DC Daptomycin 400 mg/ Sodium Chloride 50 ml @ 100 mls/hr Q48H IV ; Start 11/22/20 at 16:00; Stop 11/22/20 at 15:53; Status DC Daptomycin 400 mg/ Sodium Chloride 50 ml @ 100 mls/hr Q48H IV Last administered on 11/27/20at 21:44; Start 11/23/20 at 21:00 Meropenem 500 mg/ Sodium Chloride 50 ml @ 100 mls/hr DAILY IV Last administered on 11/27/20at 08:28; Start 11/23/20 at 09:00 Milrinone Lactate/ Dextrose 100 ml @ 8.786 mls/ hr CONT PRN IV SEE I/O RECORD Last administered on 11/27/20at 18:23; Start 11/23/20 at 10:15 Furosemide (Lasix) 40 mg 1X ONCE IVP Last administered on 11/23/20at 10:30; Start 11/23/20 at 10:30; Stop 11/23/20 at 10:31; Status DC Bisacodyl (Dulcolax Supp) 10 mg PRN DAILY PRN ID CONSTIPATION Last administered on 11/24/20at 21:14; Start 11/23/20 at 12:30 Sodium Chloride 1,000 ml @ 1,000 mls/hr Q1H PRN IV hypotension; Start 11/23/20 at 13:15; Stop 11/23/20 at 19:14; Status DC Albumin Human 200 ml @ 200 mls/hr 1X PRN PRN IV Hypotension; Start 11/23/20 at 13:15; Stop 11/23/20 at 19:14; Status DC Info (PHARMACY MONITORING -- do not chart) 1 each PRN DAILY PRN MC SEE COMMENTS; Start 11/23/20 at 13:15; Stop 11/25/20 at 11:18; Status DC Furosemide (Lasix) 40 mg DAILY IVP Last administered on 11/27/20at 08:27; Start 11/24/20 at 09:00 Metoprolol Tartrate (Lopressor) 25 mg BID PO Last administered on 11/27/20at 08:28; Start 11/23/20 at 14:00; Stop 11/27/20 at 10:29; Status DC Sodium Chloride 1,000 ml @ 1,000 mls/hr Q1H PRN IV hypotension; Start 11/24/20 at 14:00; Stop 11/24/20 at 19:59; Status DC Albumin Human 200 ml @ 200 mls/hr 1X PRN PRN IV Hypotension Last administered on 11/24/20at 14:15; Start 11/24/20 at 14:00; Stop 11/24/20 at 19:59; Status DC Sodium Chloride 1,000 ml @ 400 mls/hr Q2H30M PRN IV PATENCY; Start 11/24/20 at 14:00; Stop 11/25/20 at 01:59; Status DC Info (PHARMACY MONITORING -- do not chart) 1 each PRN DAILY PRN MC SEE COMMENTS; Start 11/24/20 at 14:00; Status UNV Info (PHARMACY MONITORING -- do not chart) 1 each PRN DAILY PRN MC SEE COMMENTS; Start 11/24/20 at 14:00; Status UNV Potassium Chloride/Water 100 ml @ 100 mls/hr 1X ONCE IV Last administered on 11/24/20at 14:19; Start 11/24/20 at 14:30; Stop 11/24/20 at 15:29; Status DC Aspirin (Aspirin Chewable) 81 mg DAILYWBKFT PO ; Start 11/25/20 at 08:00; Stop 11/25/20 at 09:44; Status DC Sodium Chloride 1,000 ml @ 1,000 mls/hr Q1H PRN IV hypotension; Start 11/25/20 at 08:00; Stop 11/25/20 at 13:59; Status DC Albumin Human 200 ml @ 200 mls/hr 1X PRN PRN IV Hypotension; Start 11/25/20 at 08:00; Stop 11/25/20 at 13:59; Status DC Sodium Chloride (Normal Saline Flush) 10 ml 1X PRN PRN IV AP catheter pack; Start 11/25/20 at 08:00; Stop 11/25/20 at 21:00; Status DC Sodium Chloride (Normal Saline Flush) 10 ml 1X PRN PRN IV ATTENDING AMBULATORY CARE catheter pack; Start 11/25/20 at 08:00; Stop 11/25/20 at 21:00; Status DC Sodium Chloride 1,000 ml @ 400 mls/hr Q2H30M PRN IV PATENCY; Start 11/25/20 at 08:00; Stop 11/25/20 at 19:59; Status DC Info (PHARMACY MONITORING -- do not chart) 1 each PRN DAILY PRN MC SEE COMMENTS; Start 11/25/20 at 08:00; Stop 11/25/20 at 11:23; Status DC Info (PHARMACY MONITORING -- do not chart) 1 each PRN DAILY PRN MC SEE COMMENTS; Start 11/25/20 at 08:00 Info (Tpn Per Pharmacy) 1 each PRN DAILY PRN MC SEE COMMENTS Last administered on 11/27/20at 12:12; Start 11/25/20 at 12:00 Potassium Chloride 20 meq/ Magnesium Sulfate 5 meq/ Multivitamins 5 ml/Zinc/Copper/ Manganese/ Selenium 1 ml/ Total Parenteral Nutrition/Amino Acids/Dextrose/ Fat Emulsion Intravenous 984 ml @ 41 mls/hr TPN CONT IV Last administered on 11/25/20at 22:25; Start 11/25/20 at 22:00; Stop 11/26/20 at 21:59; Status DC Sodium Chloride 50 meq/Potassium Chloride 20 meq/ Magnesium Sulfate 5 meq/ Multivitamins 5 ml/Zinc/Copper/ Manganese/ Selenium 1 ml/ Total Parenteral Nutrition/Amino Acids/Dextrose/ Fat Emulsion Intravenous 984 ml @ 41 mls/hr TPN CONT IV Last administered on 11/26/20at 21:27; Start 11/26/20 at 22:00; Stop 11/27/20 at 21:59; Status DC Propofol 100 ml @ 2.202 mls/ hr CONT PRN IV PER PROTOCOL Last administered on 11/28/20at 04:31; Start 11/26/20 at 11:00 Bisacodyl (Dulcolax Supp) 10 mg 1X ONCE ID Last administered on 11/26/20at 21:08; Start 11/26/20 at 16:00; Stop 11/26/20 at 16:01; Status DC Hydrocortisone Sodium Succinate (Solu-CORTEF) 50 mg Q8HRS IVP Last administered on 11/28/20at 06:14; Start 11/26/20 at 22:00 Insulin Glargine (Lantus Syringe) 9 unit QHS SQ Last administered on 11/27/20at 21:39; Start 11/27/20 at 21:00 Insulin Human Lispro (HumaLOG) 0-9 UNITS TIDWMEALS SQ Last administered on 11/27/20at 18:05; Start 11/27/20 at 08:00 Dextrose (Dextrose 50%-Water Syringe) 12.5 gm PRN Q15MIN PRN IV SEE COMMENTS; Start 11/27/20 at 07:15; Status UNV Metoprolol Tartrate (Lopressor Vial) 5 mg BID IVP Last administered on 11/27/20at 21:39; Start 11/27/20 at 11:00 Sodium Chloride 50 meq/Potassium Chloride 20 meq/ Magnesium Sulfate 5 meq/ Multivitamins 5 ml/Zinc/Copper/ Manganese/ Selenium 1 ml/ Total Parenteral Nutrition/Amino Acids/Dextrose 984 ml @ 41 mls/hr TPN CONT IV Last administered on 11/27/20at 21:47; Start 11/27/20 at 22:00; Stop 11/28/20 at 21:59 Active Scripts Active Amiodarone Hcl 200 Mg Tablet 200 Mg PO DAILY 30 Days Eliquis (Apixaban) 5 Mg Tablet 5 Mg PO BID 30 Days Doxycycline Hyclate 100 Mg Tablet 100 Mg PO BID 5 Days Klor-Con M20 (Potassium Chloride) 20 Meq Tab.er.prt 20 Meq PO DAILYWBKFT 30 Days Furosemide 40 Mg Tablet 40 Mg PO DAILY 30 Days Reported Omeprazole 20 Mg Capsule.dr 1 Cap PO DAILY Metoprolol Tartrate 25 Mg Tablet 1 Tab PO BID Feosol (Ferrous Sulfate) 325 Mg Tablet 325 Mg PO DAILY Aspirin 325 Mg Tablet 1 Tab PO DAILY Amitriptyline Hcl 50 Mg Tablet 1 Tab PO QHS Ultram (Tramadol Hcl) 50 Mg Tablet 1 Tab PO Q6HRS PRN Dulera 100 Mcg/5 Mcg Inhaler (Mometasone/Formoterol) 13 Gm Hfa.aer.ad 2 Puff IH BID Lidoderm (Lidocaine) 700 Mg Adh..patch 1 Patch TP DAILY PRN Neurontin (Gabapentin) 300 Mg Capsule 2 Cap PO BID Flonase (Fluticasone Propionate) 16 Gm Lynn.susp 2 Lynn NS DAILY Cyclobenzaprine Hcl 10 Mg Tablet 1 Tab PO TID PRN Celexa (Citalopram Hydrobromide) 40 Mg Tablet 1 Tab PO DAILY Cetirizine Hcl 10 Mg Tablet 1 Tab PO DAILY Proair Hfa Inhaler (Albuterol Sulfate) 8.5 Gm Hfa.aer.ad 2 Puff IH PRN Q4-6HRS Vitals/I & O Vital Sign - Last 24 Hours 11/27/20 11/27/20 11/27/20 11/27/20 08:28 08:30 09:00 10:00 Pulse 117 116 115 Resp 27 29 B/P (MAP) 137/69 162/92 (115) 151/87 (108) Pulse Ox 100 99 O2 Delivery Ventilator Ventilator Ventilator 11/27/20 11/27/20 11/27/20 11/27/20 11:00 11:27 11:30 11:50 Pulse 115 Resp 23 25 B/P (MAP) 117/65 (82) Pulse Ox 99 99 99 O2 Delivery Ventilator Ventilator Ventilator Ventilator 11/27/20 11/27/20 11/27/20/21/21 11:55 12:00 12:00 12:00 Pulse 115 102 Resp 16 B/P (MAP) 118/65 109/53 (71) Pulse Ox 99 O2 Delivery Mechanical Ventilator Ventilator 11/27/20 11/27/20 11/27/20 11/27/20 12:00 13:00 14:00 14:00 Pulse 106 100 92 98 Resp 14 14 17 16 B/P (MAP) 102/70 (81) 108/54 (72) 104/55 (71) 110/55 (73) Pulse Ox 99 99 99 99 O2 Delivery Ventilator Ventilator Ventilator Ventilator 11/27/20 11/27/20 11/27/20 11/27/20 15:00 16:00 16:00 16:00 Pulse 91 102 95 Resp 19 17 B/P (MAP) 107/51 (69) 117/53 (74) 118/54 (75) Pulse Ox 99 99 O2 Delivery Ventilator Mechanical Ventilator Ventilator 11/27/20 11/27/20 11/27/20 11/27/20 16:14 17:00 18:00 19:00 Pulse 103 98 98 Resp 17 20 20 B/P (MAP) 117/58 (77) 126/66 (86) 121/65 (83) Pulse Ox 100 99 99 100 O2 Delivery Ventilator Ventilator Ventilator Ventilator 11/27/20 11/27/20 11/27/20 11/27/20 20:00 20:00 20:00 20:32 Temp 98.3 98.3 Pulse 102 98 Resp 20 B/P (MAP) 117/53 (74) 127/66 (86) Pulse Ox 100 100 O2 Delivery Mechanical Ventilator Ventilator Ventilator 11/27/20 11/27/20 11/27/20 11/27/20 20:33 21:00 21:39 22:00 Pulse 105 105 94 Resp 20 20 B/P (MAP) 123/62 (82) 123/62 117/64 (81) Pulse Ox 100 99 100 O2 Delivery Ventilator Ventilator Ventilator 11/27/20 11/28/20 11/28/20 11/28/20 23:00 00:00 00:00 00:01 Temp 98.3 98.3 Pulse 98 95 98 Resp 20 20 B/P (MAP) 123/64 (83) 117/64 (81) Pulse Ox 100 100 O2 Delivery Ventilator Mechanical Ventilator Ventilator 11/28/20 11/28/20 11/28/20 11/28/20 00:50 01:00 02:00 03:00 Pulse 98 94 95 Resp 20 17 17 B/P (MAP) 130/66 (87) 119/61 (80) 113/62 (79) Pulse Ox 100 100 100 100 O2 Delivery Ventilator Ventilator Ventilator Ventilator 11/28/20 11/28/20 11/28/20 11/28/20 04:00 04:00 04:00 05:00 Temp 97.3 97.3 Pulse 95 99 97 Resp 20 20 B/P (MAP) 141/79 (99) 130/73 (92) Pulse Ox 100 100 O2 Delivery Mechanical Ventilator Ventilator Ventilator 11/28/20 11/28/20 11/28/20 05:01 06:00 07:00 Temp 98.3 98.3 Pulse 102 106 Resp 20 18 B/P (MAP) 119/59 (79) 124/65 (84) Pulse Ox 100 100 100 O2 Delivery Ventilator Ventilator Ventilator Intake and Output 11/27/20 11/27/20 11/28/20 15:00 23:00 07:00 Intake Total 50 ml 1331.7 ml Output Total 700 ml 1630 ml 945 ml Balance -700 ml -1580 ml 386.7 ml Justicifation of Admission Dx: Justifications for Admission: Justification of Admission Dx: Yes CHF: Cardiac Arrhythmias SHRUTHI ARCHIBALD MD Nov 28, 2020 08:07
[2020-11-28] MEDS: IPRATRPIUM/ALBUTEROL 0.5/2.5MG 3 ML NEBU. NEB SCH ×4 (08:12→19:52)
[2020-11-28] MEDS: BUDESONIDE 0.5 MG/2 ML NEBU. NEB SCH ×2 (08:12→19:52)
[2020-11-28] MEDS: FLUTICASONE 50MCG/NASAL SPRAY 16GM BOTTLE. NS SCH (09:00)
[2020-11-28] MEDS: THIAMINE 100 MG TABLET. PO SCH (09:00)
[2020-11-28] MEDS: CITALOPRAM 20 MG TABLET. PO SCH (09:00)
[2020-11-28] MEDS: GABAPENTIN 300 MG CAPSULE. PO SCH ×2 (09:00→21:00)
[2020-11-28] MEDS: METOPROLOL IV PUSH 5 MG/5 ML VIAL. IVP SCH ×2 (09:22→21:30)
[2020-11-28] MEDS: FUROSEMIDE 40 MG/4 ML VIAL. IVP SCH (09:23)
[2020-11-28] MEDS: MEROPENEM 500 MG in IV NORMAL SALINE 50ML 50 ML IV SCH (09:26)
[2020-11-28] MEDS: PANTOPRAZOLE IV PUSH 40 MG VIAL. IVP SCH (09:27)
[2020-11-28] MEDS: INSULIN LISPRO 300 UNITS/3 ML VIAL. SQ SCH ×3 (09:29→17:30)
--- NOTE | 2020-11-28 10:42 | PDOC ---
PULMONARY PROGRESS NOTES DATE: 11/28/20 TIME: 10:39 Subjective Patient intubated 11/17 remains on vent support 35%/5 PEEP failed CPAP 11/26, increase BP, PCO2, failed again today 11/28 coffee ground OG Vitals Vital Signs Date Time Temp Pulse Resp B/P (MAP) Pulse Ox O2 Delivery O2 Flow Rate FiO2 11/28/20 10:00 106 18 130/72 (91) 99 Ventilator 11/28/20 07:00 98.3 98.3 Comments Intubated Lungs: Clear Cardiovascular: S1, S2 Abdomen: Soft, Non-tender Extremities: No Edema Skin: Warm, Dry Labs Laboratory Tests Test 11/27/20 05:55 11/27/20 06:00 11/27/20 08:00 11/27/20 08:31 White Blood Count 16.8 x10^3/uL (4.0-11.0) Red Blood Count 3.49 x10^6/uL (3.50-5.40) Hemoglobin 7.5 g/dL (12.0-15.5) Hematocrit 24.1 % (36.0-47.0) Mean Corpuscular Volume 69 fL (79-100) Mean Corpuscular Hemoglobin 21 pg (25-35) Mean Corpuscular Hemoglobin Concent 31 g/dL (31-37) Red Cell Distribution Width 28.7 % (11.5-14.5) Platelet Count 58 x10^3/uL (140-400) Neutrophils (%) (Auto) 88 % (31-73) Lymphocytes (%) (Auto) 7 % (24-48) Monocytes (%) (Auto) 6 % (0-9) Eosinophils (%) (Auto) 0 % (0-3) Basophils (%) (Auto) 0 % (0-3) Neutrophils # (Auto) 14.7 x10^3/uL (1.8-7.7) Lymphocytes # (Auto) 1.1 x10^3/uL (1.0-4.8) Monocytes # (Auto) 0.9 x10^3/uL (0.0-1.1) Eosinophils # (Auto) 0.0 x10^3/uL (0.0-0.7) Basophils # (Auto) 0.0 x10^3/uL (0.0-0.2) Sodium Level 137 mmol/L (136-145) Potassium Level 3.8 mmol/L (3.5-5.1) Chloride Level 99 mmol/L (98-107) Carbon Dioxide Level 27 mmol/L (21-32) Anion Gap 11 (6-14) Blood Urea Nitrogen 65 mg/dL (7-20) Creatinine 1.8 mg/dL (0.6-1.0) Estimated GFR (Cockcroft-Gault) 37.9 Glucose Level 248 mg/dL (70-99) Calcium Level 9.1 mg/dL (8.5-10.1) Phosphorus Level 3.4 mg/dL (2.6-4.7) Magnesium Level 2.2 mg/dL (1.8-2.4) Total Bilirubin 3.8 mg/dL (0.2-1.0) Direct Bilirubin 2.4 mg/dL (0.0-0.2) Aspartate Amino Transf (AST/SGOT) 49 U/L (15-37) Alanine Aminotransferase (ALT/SGPT) 84 U/L (14-59) Alkaline Phosphatase 110 U/L (46-116) Total Protein 6.1 g/dL (6.4-8.2) Albumin 2.9 g/dL (3.4-5.0) O2 Saturation 96 % (92-99) Arterial Blood pH 7.38 (7.35-7.45) Arterial Blood pCO2 at Patient Temp 49 mmHg (35-46) Arterial Blood pO2 at Patient Temp 96 mmHg (75-108) Arterial Blood HCO3 28 mmol/L (21-28) Arterial Blood Base Excess 3 mmol/L (-3-3) FiO2 30% ps 14 peep 5 Glucose (Fingerstick) 249 mg/dL (70-99) Test 11/27/20 12:59 11/27/20 16:40 11/28/20 06:20 Glucose (Fingerstick) 249 mg/dL (70-99) 192 mg/dL (70-99) White Blood Count 19.8 x10^3/uL (4.0-11.0) Red Blood Count 3.62 x10^6/uL (3.50-5.40) Hemoglobin 7.7 g/dL (12.0-15.5) Hematocrit 24.9 % (36.0-47.0) Mean Corpuscular Volume 69 fL (79-100) Mean Corpuscular Hemoglobin 21 pg (25-35) Mean Corpuscular Hemoglobin Concent 31 g/dL (31-37) Red Cell Distribution Width 29.3 % (11.5-14.5) Platelet Count 51 x10^3/uL (140-400) Neutrophils (%) (Auto) 90 % (31-73) Lymphocytes (%) (Auto) 5 % (24-48) Monocytes (%) (Auto) 5 % (0-9) Eosinophils (%) (Auto) 0 % (0-3) Basophils (%) (Auto) 0 % (0-3) Neutrophils # (Auto) 17.8 x10^3/uL (1.8-7.7) Lymphocytes # (Auto) 1.0 x10^3/uL (1.0-4.8) Monocytes # (Auto) 1.0 x10^3/uL (0.0-1.1) Eosinophils # (Auto) 0.0 x10^3/uL (0.0-0.7) Basophils # (Auto) 0.0 x10^3/uL (0.0-0.2) Sodium Level 140 mmol/L (136-145) Potassium Level 3.4 mmol/L (3.5-5.1) Chloride Level 102 mmol/L (98-107) Carbon Dioxide Level 30 mmol/L (21-32) Anion Gap 8 (6-14) Blood Urea Nitrogen 70 mg/dL (7-20) Creatinine 1.5 mg/dL (0.6-1.0) Estimated GFR (Cockcroft-Gault) 46.8 Glucose Level 181 mg/dL (70-99) Calcium Level 9.3 mg/dL (8.5-10.1) Phosphorus Level 3.5 mg/dL (2.6-4.7) Magnesium Level 2.2 mg/dL (1.8-2.4) Triglycerides Level 90 mg/dL (0-150) Laboratory Tests Test 11/27/20 12:59 11/27/20 16:40 11/28/20 06:20 Glucose (Fingerstick) 249 mg/dL (70-99) 192 mg/dL (70-99) White Blood Count 19.8 x10^3/uL (4.0-11.0) Red Blood Count 3.62 x10^6/uL (3.50-5.40) Hemoglobin 7.7 g/dL (12.0-15.5) Hematocrit 24.9 % (36.0-47.0) Mean Corpuscular Volume 69 fL (79-100) Mean Corpuscular Hemoglobin 21 pg (25-35) Mean Corpuscular Hemoglobin Concent 31 g/dL (31-37) Red Cell Distribution Width 29.3 % (11.5-14.5) Platelet Count 51 x10^3/uL (140-400) Neutrophils (%) (Auto) 90 % (31-73) Lymphocytes (%) (Auto) 5 % (24-48) Monocytes (%) (Auto) 5 % (0-9) Eosinophils (%) (Auto) 0 % (0-3) Basophils (%) (Auto) 0 % (0-3) Neutrophils # (Auto) 17.8 x10^3/uL (1.8-7.7) Lymphocytes # (Auto) 1.0 x10^3/uL (1.0-4.8) Monocytes # (Auto) 1.0 x10^3/uL (0.0-1.1) Eosinophils # (Auto) 0.0 x10^3/uL (0.0-0.7) Basophils # (Auto) 0.0 x10^3/uL (0.0-0.2) Sodium Level 140 mmol/L (136-145) Potassium Level 3.4 mmol/L (3.5-5.1) Chloride Level 102 mmol/L (98-107) Carbon Dioxide Level 30 mmol/L (21-32) Anion Gap 8 (6-14) Blood Urea Nitrogen 70 mg/dL (7-20) Creatinine 1.5 mg/dL (0.6-1.0) Estimated GFR (Cockcroft-Gault) 46.8 Glucose Level 181 mg/dL (70-99) Calcium Level 9.3 mg/dL (8.5-10.1) Phosphorus Level 3.5 mg/dL (2.6-4.7) Magnesium Level 2.2 mg/dL (1.8-2.4) Triglycerides Level 90 mg/dL (0-150) Medications Active Scripts Medications Dose Route/Sig Max Daily Dose Days Date Category Amiodarone Hcl 200 Mg Tablet 200 Mg PO DAILY 30 09/29/20 Rx Eliquis (Apixaban) 5 Mg Tablet 5 Mg PO BID 30 09/29/20 Rx Doxycycline Hyclate 100 Mg Tablet 100 Mg PO BID 5 09/29/20 Rx Klor-Con M20 (Potassium Chloride) 20 Meq Tab.er.prt 20 Meq PO DAILYWBKFT 30 09/29/20 Rx Furosemide 40 Mg Tablet 40 Mg PO DAILY 30 09/29/20 Rx Omeprazole 20 Mg Capsule.dr 1 Cap PO DAILY 08/08/20 Reported Metoprolol Tartrate 25 Mg Tablet 1 Tab PO BID 12/20/14 Reported Feosol (Ferrous Sulfate) 325 Mg Tablet 325 Mg PO DAILY 12/20/14 Reported Aspirin 325 Mg Tablet 1 Tab PO DAILY 12/20/14 Reported Amitriptyline Hcl 50 Mg Tablet 1 Tab PO QHS 12/17/14 Reported Ultram (Tramadol Hcl) 50 Mg Tablet 1 Tab PO Q6HRS PRN 11/01/14 Reported Dulera 100 Mcg/5 Mcg Inhaler (Mometasone/Formoterol) 13 Gm Hfa.aer.ad 2 Puff IH BID 11/01/14 Reported Lidoderm (Lidocaine) 700 Mg Adh..patch 1 Patch TP DAILY PRN 11/01/14 Reported Neurontin (Gabapentin) 300 Mg Capsule 2 Cap PO BID 11/01/14 Reported Flonase (Fluticasone Propionate) 16 Gm [place].susp 2 [place] NS DAILY 11/01/14 Reported Cyclobenzaprine Hcl 10 Mg Tablet 1 Tab PO TID PRN 11/01/14 Reported Celexa (Citalopram Hydrobromide) 40 Mg Tablet 1 Tab PO DAILY 11/01/14 Reported Cetirizine Hcl 10 Mg Tablet 1 Tab PO DAILY 11/01/14 Reported Proair Hfa Inhaler (Albuterol Sulfate) 8.5 Gm Hfa.aer.ad 2 Puff IH PRN Q4-6HRS 11/01/14 Reported Comments CXR IMPRESSION: 1. New left internal jugular temporary dialysis catheter in acceptable position. Otherwise stable support lines and tubes 2. Increasing pulmonary infiltrates and small right pleural effusion Impression . IMPRESSION: 1. Acute hypoxemic respiratory failure multifactorial. 2. Shock, likely combination of Cardiogenic (EF15%), Septic, off pressors now 3. Possible pneumonia, gram-negative, gram-positive. Chest x-ray abnormal suspect combination of pulmonary edema and pneumonia 5. Colitis seen on CT abdomen and pelvis, likely source of sepsis 6. Atrial fibrillation/atrial flutter. 7. Acute on chronic heart failure. 8. Bilateral pleural effusions.stable 9. History of ASD, status post closure. 10. Chronic obstructive pulmonary disease with exacerbation. 11. Hlizx-pd-hjykwmt cor pulmonale. 12. Severe metabolic acidosis, improved 13. coagulopathy 14. Acute kidney injury-- now on HD 15. Acute liver failure, ? amiodarone induced, improving Bili 16. Positive urine drug screen 17. Cardiomyopathy ejection fraction of 15% 18. Encephalopathy, hepatic, 19. Severe Pulmonary HTN, possible hepato -pulmonary vs due to severe CMP Plan . Continue current support with assist control ventilation Fi02 35%/ PEEP of 5. Failed CPAP trial today. Daily CPAP trial. will do T-Piece before extubation Mental status better, but not ready for extubation, likely hepatic encephalopathy HD Follow CXR/ABG- COVID-19 negative Follow hematology recs ---- holding AC, platelets low Follow nephrology recs-- HD Antibiotics per infectious disease service Follow cardiology input patient echocardiogram revealed ejection fraction 15%, and Afib now off A/C-- S/P cardiac Cath and SAMMY on 11/22-- no intervention-- see report, now on primacor Follow surgery recs--- no surgical plans at this time Nutritional support with TPN Monitor LFT, mild improvement in Bili DVT/GI PPX : SCDS/protonix D/W RN and RT critically ill Total cumulative critical care time from 30 minutes KATHRYN CULVER MD Nov 28, 2020 10:42
--- NOTE | 2020-11-28 10:50 | PDOC ---
Renal-Progress Notes Subjective Notes Notes REMAINS ON THE VENT History of Present Illness Hx of present illness VENT WEAN ATTEMPT TODAY Vitals Vitals Vital Signs Date Time Temp Pulse Resp B/P (MAP) Pulse Ox O2 Delivery O2 Flow Rate FiO2 11/28/20 10:00 106 18 130/72 (91) 99 Ventilator 11/28/20 07:00 98.3 98.3 Weight Weight [ ] I.O. Intake and Output Intake and Output 11/28/20 07:00 Intake Total 1381.7 ml Output Total 3275 ml Balance -1893.3 ml IV Total 1281.7 ml Tube Feeding 100 ml Output Urine Total 3275 ml # Bowel Movements 3 Labs Labs Laboratory Tests Test 11/27/20 12:59 11/27/20 16:40 11/28/20 06:20 Glucose (Fingerstick) 249 mg/dL (70-99) 192 mg/dL (70-99) White Blood Count 19.8 x10^3/uL (4.0-11.0) Red Blood Count 3.62 x10^6/uL (3.50-5.40) Hemoglobin 7.7 g/dL (12.0-15.5) Hematocrit 24.9 % (36.0-47.0) Mean Corpuscular Volume 69 fL (79-100) Mean Corpuscular Hemoglobin 21 pg (25-35) Mean Corpuscular Hemoglobin Concent 31 g/dL (31-37) Red Cell Distribution Width 29.3 % (11.5-14.5) Platelet Count 51 x10^3/uL (140-400) Neutrophils (%) (Auto) 90 % (31-73) Lymphocytes (%) (Auto) 5 % (24-48) Monocytes (%) (Auto) 5 % (0-9) Eosinophils (%) (Auto) 0 % (0-3) Basophils (%) (Auto) 0 % (0-3) Neutrophils # (Auto) 17.8 x10^3/uL (1.8-7.7) Lymphocytes # (Auto) 1.0 x10^3/uL (1.0-4.8) Monocytes # (Auto) 1.0 x10^3/uL (0.0-1.1) Eosinophils # (Auto) 0.0 x10^3/uL (0.0-0.7) Basophils # (Auto) 0.0 x10^3/uL (0.0-0.2) Sodium Level 140 mmol/L (136-145) Potassium Level 3.4 mmol/L (3.5-5.1) Chloride Level 102 mmol/L (98-107) Carbon Dioxide Level 30 mmol/L (21-32) Anion Gap 8 (6-14) Blood Urea Nitrogen 70 mg/dL (7-20) Creatinine 1.5 mg/dL (0.6-1.0) Estimated GFR (Cockcroft-Gault) 46.8 Glucose Level 181 mg/dL (70-99) Calcium Level 9.3 mg/dL (8.5-10.1) Phosphorus Level 3.5 mg/dL (2.6-4.7) Magnesium Level 2.2 mg/dL (1.8-2.4) Triglycerides Level 90 mg/dL (0-150) Micro Micro Microbiology 11/17/20 Blood Culture - Final, Complete NO GROWTH AFTER 5 DAYS 11/15/20 Urine Culture - Final, Complete Review of Systems Constitutional: yes: unresponsive, other (INTUBATED) Physical Exam General Appearance: no apparent distress, febrile Respiratory: bilateral CTA Heart: S1S2 Abdomen: soft, bowel sounds present Genitourinary: bladder flat Extremities: pulses present Neurology: other (sedation) Assessment Assessment IMP [id number] UO AND CLEARANCE HYPOKALEMIA ACUTE HYPOXIC RESP FAILURE SEPSIS WITH SHOCK PROB PNEUMONIA CM WITH EF OF 15% ANEMIA LEUCOCYTOSIS AFIB/FLUTTER LIVER FAILURE MET ACIDOSIS-COMPENSATED PLAN REPLACE K PT REMAINS CRITICALLY ILL CONT BUCK ANTIBIOTICS PRESSORS NEEDED HOLD HD TODAY LOOK FOR RENAL RECOVERY VENT SUPPORT AND WEAN TOLERATED TPN TO CONTINUE CRITICALL ILL PT POOR PROGNOSIS WILL FOLLOW CHICHI MENDOZA MD Nov 28, 2020 10:50
--- NOTE | 2020-11-28 11:12 | PDOC ---
Date of Service: DATE: 11/28/20 TIME: 11:05 Objective: Objective: Ongoing reddish/bloody OG output. 3 stools charted. Vital Signs: Vital Signs Date Time Temp Pulse Resp B/P (MAP) Pulse Ox O2 Delivery O2 Flow Rate FiO2 11/28/20 10:00 106 18 130/72 (91) 99 Ventilator 11/28/20 07:00 98.3 98.3 Labs: Laboratory Tests Test 11/27/20 12:59 11/27/20 16:40 11/28/20 06:20 Glucose (Fingerstick) 249 mg/dL 192 mg/dL White Blood Count 19.8 x10^3/uL Red Blood Count 3.62 x10^6/uL Hemoglobin 7.7 g/dL Hematocrit 24.9 % Mean Corpuscular Volume 69 fL Mean Corpuscular Hemoglobin 21 pg Mean Corpuscular Hemoglobin Concent 31 g/dL Red Cell Distribution Width 29.3 % Platelet Count 51 x10^3/uL Neutrophils (%) (Auto) 90 % Lymphocytes (%) (Auto) 5 % Monocytes (%) (Auto) 5 % Eosinophils (%) (Auto) 0 % Basophils (%) (Auto) 0 % Neutrophils # (Auto) 17.8 x10^3/uL Lymphocytes # (Auto) 1.0 x10^3/uL Monocytes # (Auto) 1.0 x10^3/uL Eosinophils # (Auto) 0.0 x10^3/uL Basophils # (Auto) 0.0 x10^3/uL Sodium Level 140 mmol/L Potassium Level 3.4 mmol/L Chloride Level 102 mmol/L Carbon Dioxide Level 30 mmol/L Anion Gap 8 Blood Urea Nitrogen 70 mg/dL Creatinine 1.5 mg/dL Estimated GFR (Cockcroft-Gault) 46.8 Glucose Level 181 mg/dL Calcium Level 9.3 mg/dL Phosphorus Level 3.5 mg/dL Magnesium Level 2.2 mg/dL Triglycerides Level 90 mg/dL Imaging: CXR 11/28 Impression: 1. Stable appearance of the chest compared to prior. PE: GEN: itnuabted LUNGS: vent, clear HEART: tachycardic ABD: soft, ?periumbilical discomfort, quiet, OG output watery dark reddish NEURO/PSYCH: awake, attempts to nod/shake head, almost tearful A/P: NICM, resp failure/pulm HTN, KENNETH Concern for bloody OG output - remains on IV PPI, KUB w/o obstruction on 11/24 - poor EGD candidate COREEN - Hgb stable in 7s (did received 1 unit pRBCs 11/25) Thrombocytopenia, coagulopathy (INR 1.5 on 11/25), elevated LFTs (improving- checked 11/27) COVID negative 11/17 -- Continue TPN and IV PPI. Justicifation of Admission Dx: Justifications for Admission: Justification of Admission Dx: Yes CHF: Cardiac Arrhythmias EMILEE WRIGHT Nov 28, 2020 11:12
[2020-11-28] MEDS: POTASSIUM CHLORIDE 10MEQ 100 ML IV SCH ×2 (11:30→12:31)
[2020-11-28] MEDS: MILRINONE 20MG/100ML PREMIX 100 ML IV PRN (11:30)
--- NOTE | 2020-11-28 11:49 | PDOC ---
Infectious Disease Note Subjective: Subjective Pt intubated, + BM. On TPN No fevers last 48 hrs Vital Signs: Vital Signs Vital Signs Date Time Temp Pulse Resp B/P (MAP) Pulse Ox O2 Delivery O2 Flow Rate FiO2 11/28/20 11:31 100 Ventilator 11/28/20 11:24 98.2 119 9 136/74 (94) 98.2 Physical Exam: PHYSICAL EXAM GENERAL: Awake, orally intubated, calm HEENT: Pupils equal, ETT/OGT tube present NECK: Right IJ and left HDC, clean LUNGS: Clear anteriorly. HEART: S1 and S2, regular, murmur present ABDOMEN: Mildly distended, soft, hypoactive bowel sounds : Sky in place EXTREMITIES: Trace edema. SCD bilaterally NEUROLOGIC: Awake, noncommunicative SKIN: warm to touch. No signs of generalized rash. LINES: RUE-PICC, R fem art line, RIJ, LIJ/HDC without signs of complications Medications: Inpatient Meds: Medications reviewed. Labs: Lab Laboratory Tests Test 11/27/20 12:59 11/27/20 16:40 11/28/20 06:20 Glucose (Fingerstick) 249 mg/dL (70-99) 192 mg/dL (70-99) White Blood Count 19.8 x10^3/uL (4.0-11.0) Red Blood Count 3.62 x10^6/uL (3.50-5.40) Hemoglobin 7.7 g/dL (12.0-15.5) Hematocrit 24.9 % (36.0-47.0) Mean Corpuscular Volume 69 fL (79-100) Mean Corpuscular Hemoglobin 21 pg (25-35) Mean Corpuscular Hemoglobin Concent 31 g/dL (31-37) Red Cell Distribution Width 29.3 % (11.5-14.5) Platelet Count 51 x10^3/uL (140-400) Neutrophils (%) (Auto) 90 % (31-73) Lymphocytes (%) (Auto) 5 % (24-48) Monocytes (%) (Auto) 5 % (0-9) Eosinophils (%) (Auto) 0 % (0-3) Basophils (%) (Auto) 0 % (0-3) Neutrophils # (Auto) 17.8 x10^3/uL (1.8-7.7) Lymphocytes # (Auto) 1.0 x10^3/uL (1.0-4.8) Monocytes # (Auto) 1.0 x10^3/uL (0.0-1.1) Eosinophils # (Auto) 0.0 x10^3/uL (0.0-0.7) Basophils # (Auto) 0.0 x10^3/uL (0.0-0.2) Sodium Level 140 mmol/L (136-145) Potassium Level 3.4 mmol/L (3.5-5.1) Chloride Level 102 mmol/L (98-107) Carbon Dioxide Level 30 mmol/L (21-32) Anion Gap 8 (6-14) Blood Urea Nitrogen 70 mg/dL (7-20) Creatinine 1.5 mg/dL (0.6-1.0) Estimated GFR (Cockcroft-Gault) 46.8 Glucose Level 181 mg/dL (70-99) Calcium Level 9.3 mg/dL (8.5-10.1) Phosphorus Level 3.5 mg/dL (2.6-4.7) Magnesium Level 2.2 mg/dL (1.8-2.4) Triglycerides Level 90 mg/dL (0-150) Micro CHEST CT: No enlarged thoracic lymphadenopathy is evident. No focal aneurysmal dilatation of the thoracic aorta is seen. Cardiomegaly is evident. No pericardial effusion is seen. Small left-sided pleural effusion and moderate size right-sided pleural effusion is seen. Bilateral lung infiltrates are seen most consolidative within the right lower lobe and left lower lobe. Left lower lobe is almost completely consolidated. Some of this could be due to atelectasis given the narrowing of the left lower lobe bronchus. Additional groundglass lung infiltrates are apparent within the upper lobes bilaterally and to lesser extent within the right middle lobe. Atypical pneumonia such as Covid 19 pneumonia is certainly possible. No pneumothorax is seen. No lytic process is seen. IMPRESSION: Bilateral lung infiltrates more consolidative within both lower lobes. The left lower lobe is almost completely consolidated. Some of this on the left side could be due to atelectasis related to narrowing of the left lower lobe bronchus. Additional groundglass nodular lung infiltrates are seen bilaterally. Therefore, atypical pneumonia such as Covid 19 pneumonia is possible as well. Bilateral pleural effusions; moderate size on the right side mild on the left side. Cardiomegaly. Therefore, lung infiltrates and pleural effusions could be reflection of CHF as well. ABDOMEN AND PELVIS CT: The liver and spleen and pancreas are unremarkable on this noncontrast study. Dense bile is seen within the gallbladder which may represent biliary sludge or could be related to previous contrast study. No extra hepatic ductal dilatation is seen. No adrenal mass is evident. Contrast is seen within both kidneys. This is related to recent cardiac imaging. Multiple wedge-shaped hypodense areas of both kidneys are seen. This could be secondary to multiple renal infarcts or pyelonephritis. No perinephric fluid collection is seen otherwise. No hydronephrosis is evident on either side. Urinary bladder is decompressed by an indwelling Sky catheter. No focal aneurysmal dilatation of the abdominal aorta is seen. No bulky abdominal or pelvic lymphadenopathy is evident. Mild fecal retention is seen within the colon. There is mild dilatation of the right side of the colon. No obstructive bowel pattern is evident. NG tube tip is seen within the proximal body of the stomach. Stomach is not abnormally distended. There is a small amount of free fluid within the pelvis. Generalized anasarca of the soft tissues of the abdomen and pelvis and bilateral flanks is seen. No free air is apparent. A right groin catheter is seen extending into right external iliac artery or vein. No lytic process is evident. IMPRESSION: Multiple wedge-shaped hypodense areas are seen within both kidneys consistent with bilateral renal infarcts or pyelonephritis. No hydronephrosis. Small amount of ascites is seen within the pelvis. Generalized anasarca. Objective: Assessment: Severe sepsis source likely GI. BC negative Leukocytosis Lactic acidosis. Acute kidney injury with severe metabolic acidosis. Abdominal pain, intermittent nausea.Colitis on CT abdomen, Gen surgery evaluated pt Atrial fibrillation/flutter. Acute on chronic congestive heart failure. Valvular insufficiency. MR, severe TR, hepatic congestion History of PFO cloure/ASD repair. Acute respiratory failure status post intubation, CT chest noted Pulmonary hypertension. Coagulopathy. Thrombocytopenia Abnormal liver function tests , hyperbilirubinemia COVID-19 negative UC negative, CT kidney infarcts KENNETH Plan: Plan of Care Continue Dapto, Merrem, renal adjustment and micafungin Off zyvox with thrombocytopenia - neg cults and 10 days of treatment Transesophageal echocardiogram attempted but was unsuccessful DC Rt groin line when able On steroids Gen surgery has evaluated pt Monitor labs/temp Continue supportive care. Critically ill Prognosis very poor Discussed with nursing staff MEGAN MEHTA MD Nov 28, 2020 11:49
[2020-11-28] MEDS: TPN PER PHARMACY MC PRN (12:16)
--- NOTE | 2020-11-28 12:16 | NUR ---
Pharmacy TPN Dosing Note S: NANY MARTIN is a 39 year old F Currently receiving Central Continuous TPN started 11/25/20 B:Pertinent PMH: FAILED TF (HIGH GASTRIC RESIDUALS) Height: 5 feet, 4 inches Weight: 70.310958 kg Current diet: NPO LABS: Sodium: 140 Potassium: 3.4 Chloride: 102 Calcium: 9.3 Corrected Calcium: 10.18 Magnesium: 2.2 CO2: 30 SCr: 1.5 Glucose: 181 Albumin: 2.9 AST: 49 ALT: 84 TPN FORMULA: TPN TYPE: Central Continuous AMINO ACIDS: 85 gm DEXTROSE: 195 gm SODIUM CHLORIDE: 50 mEq POTASSIUM CHLORIDE: 30 mEq MAGNESIUM: 5 mEq MULTIPLE VITAMIN: 5 ml TRACE ELEMENTS: 1 ml(s) THIAMINE: 100 mg TPN PLAN: Patient remains on propofol- no lipids in TPN. K 3.4 today, replaced with IVPB and also increase to KCl 30 meq/bag. Added thiamine to TPN as patient cannot take oral. -CMP, Mag and Phos ordered for AM. R: Change TPN as noted above. Will monitor electrolytes, glucose, and tolerance to TPN. LASHELL HANEY [facility]LY [facility] [place], 11/28/20 9628
[2020-11-28] MEDS: MICAFUNGIN 100 MG in IV DEXTROSE 5% 100ML 100 ML IV SCH (12:40)
--- NOTE | 2020-11-28 13:49 | PDOC ---
KELLY FLOOD [employer] 11/28/20 1349: CARDIO Progress Notes Date and Time Date of Service 11/28/20 Time of Evaluation 1310 Subjective Subjective: Other (intubated) Vitals Vitals Vital Signs Date Time Temp Pulse Resp B/P (MAP) Pulse Ox O2 Delivery O2 Flow Rate FiO2 11/28/20 13:04 122 21 112/60 (77) 100 Ventilator 11/28/20 11:24 98.2 98.2 Weight Weight [ ] Input and Output Intake and Output Intake and Output 11/28/20 07:00 Intake Total 1381.7 ml Output Total 3275 ml Balance -1893.3 ml IV Total 1281.7 ml Tube Feeding 100 ml Output Urine Total 3275 ml # Bowel Movements 3 Laboratory Labs Laboratory Tests Test 11/27/20 16:40 11/28/20 06:20 11/28/20 12:34 Glucose (Fingerstick) 192 mg/dL (70-99) 192 mg/dL (70-99) White Blood Count 19.8 x10^3/uL (4.0-11.0) Red Blood Count 3.62 x10^6/uL (3.50-5.40) Hemoglobin 7.7 g/dL (12.0-15.5) Hematocrit 24.9 % (36.0-47.0) Mean Corpuscular Volume 69 fL (79-100) Mean Corpuscular Hemoglobin 21 pg (25-35) Mean Corpuscular Hemoglobin Concent 31 g/dL (31-37) Red Cell Distribution Width 29.3 % (11.5-14.5) Platelet Count 51 x10^3/uL (140-400) Neutrophils (%) (Auto) 90 % (31-73) Lymphocytes (%) (Auto) 5 % (24-48) Monocytes (%) (Auto) 5 % (0-9) Eosinophils (%) (Auto) 0 % (0-3) Basophils (%) (Auto) 0 % (0-3) Neutrophils # (Auto) 17.8 x10^3/uL (1.8-7.7) Lymphocytes # (Auto) 1.0 x10^3/uL (1.0-4.8) Monocytes # (Auto) 1.0 x10^3/uL (0.0-1.1) Eosinophils # (Auto) 0.0 x10^3/uL (0.0-0.7) Basophils # (Auto) 0.0 x10^3/uL (0.0-0.2) Sodium Level 140 mmol/L (136-145) Potassium Level 3.4 mmol/L (3.5-5.1) Chloride Level 102 mmol/L (98-107) Carbon Dioxide Level 30 mmol/L (21-32) Anion Gap 8 (6-14) Blood Urea Nitrogen 70 mg/dL (7-20) Creatinine 1.5 mg/dL (0.6-1.0) Estimated GFR (Cockcroft-Gault) 46.8 Glucose Level 181 mg/dL (70-99) Calcium Level 9.3 mg/dL (8.5-10.1) Phosphorus Level 3.5 mg/dL (2.6-4.7) Magnesium Level 2.2 mg/dL (1.8-2.4) Triglycerides Level 90 mg/dL (0-150) Microbiology Micro Microbiology 11/17/20 Blood Culture - Final, Complete NO GROWTH AFTER 5 DAYS 11/15/20 Urine Culture - Final, Complete Review of Systems Constitutional: yes: unresponsive, other (INTUBATED) Physical Exam HEENT: Neck Supple W Full Motion Chest: Symmetric LUNGS: Other (diminished , intubated, vent) Heart: irregularly irregular (AFIB/flutter ) Abdomen: Other (anasarca) Extremities: Other (trace bilateral LE edema ) Neurology: other (on sedation ) Assessment Assessment 1. Acute on chronic systolic/diastolic CHF; improved. weight down to 70kg 2. AFIB/flutter: rate controlled. notable for biatrial dilation. was on eliquis. 3. Acute respiratory failure with a/c CHF, possible PNA, cor pulmonale: intubated with vent 4. Valvular insufficiency: notable for moderate MR and mod to severe TR 5. H/o ASD s/p surgical closure: 2014. Unable to advance probe as pt was biting during SAMMY for reevaluation 6. Severe KENNETH: Cr improved 7. Anemia: multifactorial. possible UGI erosions. Hgb stable at 7.7 8. Transaminitis, coagulopathy; INR better at 1.5 9. Severe NICM: 15-20%, LHC revealed no CAD 10. Cardiohepatorenal syndrome 11. Hypertension: controlled 12. Hypoglycemia, profound improved 13. Fever: resolved 14. Abdominal pain; CT with possible colitis 15. Marijuana use 16. Thrmobocytopenia: PLT drifted to 51. No obvious bleed. Recommendations Continue milrinone and Lasix therapy Trialing DC art line No AC with thrombocytopenia Outpatient referral for advance heart failure therapies Ongoing support Justicifation of Admission Dx: Justifications for Admission: Justification of Admission Dx: Yes CHF: Cardiac Arrhythmias CHAYO LOCKWOOD MD 11/28/20 1619: CARDIO Progress Notes Plan Plan Patient seen and examined. Agree with above nurse practitioner note. No plans for transfer to [facility] at this time. We will check a SVO 2 and CVP. Extubation plans per pulmonary. If patient is not a candidate for extubation, then we will consider transfer to [facility] for cardiac transplant evaluation. Supportive care for now. Ultimately, the patient will likely need a repeat SAMMY and this can be done on outpatient basis if we can extubate and stabilize her. KELLY FLOOD APRN Nov 28, 2020 13:49 CHAYO LOCKWOOD MD Nov 28, 2020 16:19
--- NOTE | 2020-11-28 15:01 | NUR ---
SS following up with discharge planning. SS reviewed pt chart and discussed with pt RN. Pt is currently on the vent at 30%. Pt on TPN, IV Daptomycin, IV Meropenem, and IV Micafungin. Milrinone drip. Not stable. Awaiting Cardiology input. SS will continue to follow for discharge planning.
[2020-11-28 17:00] LABS: BASE EXCESS ABG 4 mmol/L (-3-3); HCO3 ABG 30 mmol/L (21-28); PCO2 ABG 51 mmHg (35-46); PO2 ABG 69 mmHg (75-108); SAT O2 ABG 91 % (92-99)
--- NOTE | 2020-11-28 18:44 | NUR ---
Patient CPAP trial [id number] and again at [id number]. Increased RR, Low TV, Increased BP. Discontinued femoral art line per Dr. Bueno and discontinued CVAP per Dr. Campbell.
[2020-11-28] MEDS: INSULIN GLARGINE SYRINGE. SQ SCH (21:03)
[2020-11-28] MEDS ORDERED: TOTAL PARENTERAL NUTRITION IV SCH (22:00)
[2020-11-28] MEDS ORDERED: DEXTROSE 70% IV SCH (22:00)
[2020-11-28] MEDS ORDERED: [UNRECOGNIZED DRUG - OTHER] IV SCH (22:00)
[2020-11-28] MEDS ORDERED: AMINO ACID IV SCH (22:00)
[2020-11-29] VITALS (21 sets, daily range): BP systolic 102–144; BP diastolic 60–93
[2020-11-29] MEDS: INSULIN LISPRO 300 UNITS/3 ML VIAL. SQ SCH ×4 (00:18→17:27)
[2020-11-29] MEDS: MILRINONE 20MG/100ML PREMIX 100 ML IV PRN ×2 (03:06→17:21)
[2020-11-29] MEDS: HYDROCORTISONE SOD SUCC/PF 100 MG/2 ML VIAL. IVP SCH ×2 (05:58→14:19)
[2020-11-29] MEDS: PROPOFOL 100 ML IV PRN ×3 (05:58→17:21)
[2020-11-29 06:36] LABS: BASO % 0 % (0-3); EOS % 0 % (0-3); HEMATOCRIT 25.3 % (36.0-47.0); HEMOGLOBIN 7.8 g/dL (12.0-15.5); LYMPH # 1.3 x10^3/uL (1.0-4.8); LYMPH % 6 % (24-48); MEAN CORPUSCULAR HEMOGLOBIN 21 pg (25-35); MEAN CORPUSCULAR HGB CONC 31 g/dL (31-37); MEAN CORPUSCULAR VOLUME 69 fL (79-100); MONO # 1.4 x10^3/uL (0.0-1.1); MONO % 7 % (0-9); NEUT # 18.4 x10^3/uL (1.8-7.7); NEUT % 87 % (31-73); PLATELET COUNT 48 x10^3/uL (140-400); RED BLOOD COUNT 3.65 x10^6/uL (3.50-5.40); RED CELL DISTRIBUTION WIDTH 28.4 % (11.5-14.5)
[2020-11-29 06:51] LABS: ALBUMIN 2.8 g/dL (3.4-5.0); ALBUMIN/GLOBULIN RATIO 0.8 (1.0-1.7); CALCIUM 9.2 mg/dL (8.5-10.1); CREATININE 1.2 mg/dL (0.6-1.0); GFR 60.5; MAGNESIUM 2.2 mg/dL (1.8-2.4); PHOSPHORUS 3.5 mg/dL (2.6-4.7); POTASSIUM 3.1 mmol/L (3.5-5.1); TOTAL BILIRUBIN 4.8 mg/dL (0.2-1.0); TOTAL PROTEIN 6.1 g/dL (6.4-8.2)
[2020-11-29] MEDS: BUDESONIDE 0.5 MG/2 ML NEBU. NEB SCH (08:02)
[2020-11-29] MEDS: IPRATRPIUM/ALBUTEROL 0.5/2.5MG 3 ML NEBU. NEB SCH ×3 (08:02→15:40)
--- NOTE | 2020-11-29 08:16 | PDOC ---
PROGRESS NOTES Date of Service: DATE: 11/29/20 TIME: 08:15 Chief Complaint Chief Complaint impression Multifactorial respiratory failure with severe heart failure (15% ejection fraction but was 60% just a few months ago) Status post intubation Severe pulmonary hypertension with estimated PAP 75 mmHg Sepsis Colitis Severe lactic acidosis Pneumonia Lactic acidosis Severe symptomatic hypoglycemia KENNETH due to vasomotor nephropathy Acute volume overload Coagulopathy History of atrial fibrillation/atrial flutter Secondary cor pulmonale due to pulmonary hypertension Anemia of chronic disease THC USE RUE-PICC, RIJ, LIJ/HDC without signs of complications/ infection R fem art line removed, HPI Chief Complaint: Chief Complain: Shortness of breath History of Present Illness: HPI: Patient is a 39-year-old female with past medical history of asthma, diastolic CHF, dyslipidemia, ASD status post open repair in 2014 who comes to the ED for worsening shortness of breath in the past couple days and also worsening fluid overload and edema in her lower extremity and abdominal region. Patient does have a history of heart failure and due to atrial septal defect that was not repaired until recently. Patient also has been taking Lasix in the past month or so with compliance and she does report good urine output but she feels more distended overall. Denies fevers, chest pain, abdominal pain, dysuria, diarrhea, sick contacts or palpitations or syncopal episodes. Patient does endorse orthopnea. Past Medical/Surgical History: PMH/PSH: Past Medical History: Asthma, Bronchitis, CHF, High Cholesterol, Hypertension, bulging disc, heart valve leaks, neuropathy Past Surgical History: tailbone cysts, ASD repair; PFO closure Allergies: Allergies: Coded Allergies: ibuprofen (Verified Allergy, Intermediate, Hives, 08/08/20) I S O L A T I O N *CONTACT* (Verified Allergy, Unknown, 08/08/20) mrsa + Family History: Family History: Reviewed with no relevant findings Social History: Social History: Smoking Status: Former Smoker Alcohol Use: Occasionally Drug Use: Marijuana History of Present Illness History of Present Illness 2-23 On vent, FiO2 35%, PEEP 5. failed trial extubation, she is spontaneously opening eyes and moving her arms. Continue Dapto, Merrem, renal adjustment and micafungin Off zyvox with thrombocytopenia - neg cults and 10 days of treatment Transesophageal echocardiogram attempted but was unsuccessful hypokalemia on replacement rx 35 min cc time 11/28 vent support 35%/5 PEEP Continue milrinone and Lasix therapy Trialing On vent, FiO2 35%, PEEP 5. failed trial extubation, she is spontaneously opening eyes and moving her arms. 34 min cc time Continue Dapto, Merrem, renal adjustment and micafungin Off zyvox with thrombocytopenia - neg cults and 10 days of treatment Transesophageal echocardiogram attempted but was unsuccessful 11/27/20 Patient seen and evaluated in ICU. Afebrile. On vent, FiO2 30%, PEEP 5. Will run extubation, she is spontaneously opening eyes and moving her arms. Some elevating blood glucose, will initiate insulin. Continue antibiotics for colitis, per ID. Hemodialysis, per nephrology. 11/26/2020 Remains on vent, FiO2 35%, PEEP 5. Afebrile. Will opens eyes spontaneously. Hb 7.8 today. Off pressors receiving milrinone infusion and IV Lasix. Continue empiric antibiotics, per ID. 11/25/2020 Afebrile. Remains on vent, FiO2 35%, PEEP 5. Tube feeds held yesterday secondary to vomiting. KUB yesterday showed nonobstructive bowel gas pattern, unchanged stool and gas distention of the proximal colon. CXR showed interval improvement in the bilateral perihilar infiltrates. Hemoglobin 6.2 today. Currently receiving HD. will continue to monitor and transfuse as necessary. 11/24/2020 Afebrile. On vent, FiO2 35%, PEEP 5. No acute events overnight. Continue supportive care. Continue daptomycin, meropenem, micafungin, Zyvox. HD per nephrology. 11/23/2020 Patient seen in ICU. She remains intubated and sedated, FiO2 35%, PEEP 5. SAMMY was attempted but unsuccessful; plans to repeat SAMMY when extubated. Continue Dapto, meropenem, micafungin, and Zyvox, per ID 11/22/2020 Patient seen in ICU. On vent, FiO2 35%, PEEP 5. Afebrile. Receiving hemodialysis this morning. Plan for heart cath today. Discussed with RN. 11/21/2020 Patient seen and evaluated in ICU. Intubated on vent with FiO2 35%, PEEP 5. She is to have right heart cath today. Continue IV antibiotics, per ID. Charts and labs reviewed, discussed with RN. 11/20/2020 Patient seen and examined in the ICU She is still on the vent Assist-control/16/400/40 percent with 6 of PEEP She is off the pressors today She is oxygenating a little bit better Discussed with residential leasing agent considering right heart cath tomorrow On Tranexamic acid qtt per oncologist 11/19/2020 Patient seen and examined in the ICU She remains intubated Assist-control/16/400/40 percent with 6 of PEEP Is currently in A. fib Also on CRRT Chart reviewed Discussed with RN She remains extremely critically ill 11/18/2020 Patient seen and examined in the ICU She is now intubated Ejection fraction noted to be 15% She is extremely critically ill volume overloaded desatting to 78% despite being on 80% FiO2 on the vent Her mom is present I spent quite a bit of time discussing the case with her and escorted her to the [facility] where she wants to pray Discussed with RN Discussed with case management Chart reviewed Patient is on assist-control/26/400/80 percent FiO2 with 8 of PEEP We are considering starting CRRT this afternoon She is sedated with Versed fentanyl and Also has Levophed and vasopressin running On IV Zyvox Extremely critically ill 11/16/2020 Patient seen and examined in the ICU CT abdomen reviewed looks like she has some possible colitis Lactic acid has decreased from 22 down to 8 Discussed with RN Discussed with case management Chart reviewed Vitals Vitals Vital Signs Date Time Temp Pulse Resp B/P (MAP) Pulse Ox O2 Delivery O2 Flow Rate FiO2 11/29/20 08:03 100 Ventilator 11/29/20 08:00 101 18 133/70 (91) 11/29/20 06:56 98.1 98.1 Physical Exam Physical Exam GENERAL: Awake, orally intubated, calm HEENT: Pupils equal, ETT/OGT tube present NECK: Right IJ and left HDC, clean LUNGS: Clear anteriorly. HEART: S1 and S2, regular, murmur present ABDOMEN: Mildly distended, soft, hypoactive bowel sounds : Sky in place EXTREMITIES: Trace edema. SCD bilaterally NEUROLOGIC: Awake, noncommunicative SKIN: warm to touch. No signs of generalized rash. LINES: RUE-PICC, R fem art line, RIJ, LIJ/HDC without signs of complications General: Alert, Other (Intubated) Heart: Regular rate, No murmurs, Other (Tachycardic) Lungs: Clear Abdomen: Normal bowel sounds, Other (Minimal OG output) Extremities: No cyanosis, No edema Skin: No rashes, No breakdown Labs LABS Laboratory Tests Test 11/28/20 12:34 11/28/20 17:00 11/28/20 17:28 11/29/20 00:11 Glucose (Fingerstick) 192 mg/dL (70-99) 177 mg/dL (70-99) 164 mg/dL (70-99) O2 Saturation 91 % (92-99) Arterial Blood pH 7.38 (7.35-7.45) Arterial Blood pCO2 at Patient Temp 51 mmHg (35-46) Arterial Blood pO2 at Patient Temp 69 mmHg (75-108) Arterial Blood HCO3 30 mmol/L (21-28) Arterial Blood Base Excess 4 mmol/L (-3-3) FiO2 30% 07/11 Test 11/29/20 05:50 White Blood Count 21.0 x10^3/uL (4.0-11.0) Red Blood Count 3.65 x10^6/uL (3.50-5.40) Hemoglobin 7.8 g/dL (12.0-15.5) Hematocrit 25.3 % (36.0-47.0) Mean Corpuscular Volume 69 fL (79-100) Mean Corpuscular Hemoglobin 21 pg (25-35) Mean Corpuscular Hemoglobin Concent 31 g/dL (31-37) Red Cell Distribution Width 28.4 % (11.5-14.5) Platelet Count 48 x10^3/uL (140-400) Neutrophils (%) (Auto) 87 % (31-73) Lymphocytes (%) (Auto) 6 % (24-48) Monocytes (%) (Auto) 7 % (0-9) Eosinophils (%) (Auto) 0 % (0-3) Basophils (%) (Auto) 0 % (0-3) Neutrophils # (Auto) 18.4 x10^3/uL (1.8-7.7) Lymphocytes # (Auto) 1.3 x10^3/uL (1.0-4.8) Monocytes # (Auto) 1.4 x10^3/uL (0.0-1.1) Eosinophils # (Auto) 0.0 x10^3/uL (0.0-0.7) Basophils # (Auto) 0.0 x10^3/uL (0.0-0.2) Sodium Level 145 mmol/L (136-145) Potassium Level 3.1 mmol/L (3.5-5.1) Chloride Level 106 mmol/L (98-107) Carbon Dioxide Level 32 mmol/L (21-32) Anion Gap 7 (6-14) Blood Urea Nitrogen 70 mg/dL (7-20) Creatinine 1.2 mg/dL (0.6-1.0) Estimated GFR (Cockcroft-Gault) 60.5 BUN/Creatinine Ratio 58 (6-20) Glucose Level 131 mg/dL (70-99) Calcium Level 9.2 mg/dL (8.5-10.1) Phosphorus Level 3.5 mg/dL (2.6-4.7) Magnesium Level 2.2 mg/dL (1.8-2.4) Total Bilirubin 4.8 mg/dL (0.2-1.0) Aspartate Amino Transf (AST/SGOT) 64 U/L (15-37) Alanine Aminotransferase (ALT/SGPT) 91 U/L (14-59) Alkaline Phosphatase 107 U/L (46-116) Total Protein 6.1 g/dL (6.4-8.2) Albumin 2.8 g/dL (3.4-5.0) Albumin/Globulin Ratio 0.8 (1.0-1.7) Assessment and Plan Assessmemt and Plan Problems Medical Problems: (1) KENNETH (acute kidney injury) Status: Acute (2) Atrial fibrillation with RVR Status: Acute (3) CHF (congestive heart failure) Status: Acute (4) Hypoglycemia Status: Acute (5) Pneumonia Status: Acute Comment Review of Relevant I have reviewed the following items josé (where applicable) has been applied. Labs Laboratory Tests Test 11/27/20 08:31 11/27/20 12:59 11/27/20 16:40 11/28/20 06:20 Glucose (Fingerstick) 249 mg/dL (70-99) 249 mg/dL (70-99) 192 mg/dL (70-99) White Blood Count 19.8 x10^3/uL (4.0-11.0) Red Blood Count 3.62 x10^6/uL (3.50-5.40) Hemoglobin 7.7 g/dL (12.0-15.5) Hematocrit 24.9 % (36.0-47.0) Mean Corpuscular Volume 69 fL (79-100) Mean Corpuscular Hemoglobin 21 pg (25-35) Mean Corpuscular Hemoglobin Concent 31 g/dL (31-37) Red Cell Distribution Width 29.3 % (11.5-14.5) Platelet Count 51 x10^3/uL (140-400) Neutrophils (%) (Auto) 90 % (31-73) Lymphocytes (%) (Auto) 5 % (24-48) Monocytes (%) (Auto) 5 % (0-9) Eosinophils (%) (Auto) 0 % (0-3) Basophils (%) (Auto) 0 % (0-3) Neutrophils # (Auto) 17.8 x10^3/uL (1.8-7.7) Lymphocytes # (Auto) 1.0 x10^3/uL (1.0-4.8) Monocytes # (Auto) 1.0 x10^3/uL (0.0-1.1) Eosinophils # (Auto) 0.0 x10^3/uL (0.0-0.7) Basophils # (Auto) 0.0 x10^3/uL (0.0-0.2) Sodium Level 140 mmol/L (136-145) Potassium Level 3.4 mmol/L (3.5-5.1) Chloride Level 102 mmol/L (98-107) Carbon Dioxide Level 30 mmol/L (21-32) Anion Gap 8 (6-14) Blood Urea Nitrogen 70 mg/dL (7-20) Creatinine 1.5 mg/dL (0.6-1.0) Estimated GFR (Cockcroft-Gault) 46.8 Glucose Level 181 mg/dL (70-99) Hemoglobin A1c 6.0 % (4.8-5.6) Calcium Level 9.3 mg/dL (8.5-10.1) Phosphorus Level 3.5 mg/dL (2.6-4.7) Magnesium Level 2.2 mg/dL (1.8-2.4) Triglycerides Level 90 mg/dL (0-150) Test 11/28/20 12:34 11/28/20 17:00 11/28/20 17:28 11/29/20 00:11 Glucose (Fingerstick) 192 mg/dL (70-99) 177 mg/dL (70-99) 164 mg/dL (70-99) O2 Saturation 91 % (92-99) Arterial Blood pH 7.38 (7.35-7.45) Arterial Blood pCO2 at Patient Temp 51 mmHg (35-46) Arterial Blood pO2 at Patient Temp 69 mmHg (75-108) Arterial Blood HCO3 30 mmol/L (21-28) Arterial Blood Base Excess 4 mmol/L (-3-3) FiO2 30% 07/11 Test 11/29/20 05:50 White Blood Count 21.0 x10^3/uL (4.0-11.0) Red Blood Count 3.65 x10^6/uL (3.50-5.40) Hemoglobin 7.8 g/dL (12.0-15.5) Hematocrit 25.3 % (36.0-47.0) Mean Corpuscular Volume 69 fL (79-100) Mean Corpuscular Hemoglobin 21 pg (25-35) Mean Corpuscular Hemoglobin Concent 31 g/dL (31-37) Red Cell Distribution Width 28.4 % (11.5-14.5) Platelet Count 48 x10^3/uL (140-400) Neutrophils (%) (Auto) 87 % (31-73) Lymphocytes (%) (Auto) 6 % (24-48) Monocytes (%) (Auto) 7 % (0-9) Eosinophils (%) (Auto) 0 % (0-3) Basophils (%) (Auto) 0 % (0-3) Neutrophils # (Auto) 18.4 x10^3/uL (1.8-7.7) Lymphocytes # (Auto) 1.3 x10^3/uL (1.0-4.8) Monocytes # (Auto) 1.4 x10^3/uL (0.0-1.1) Eosinophils # (Auto) 0.0 x10^3/uL (0.0-0.7) Basophils # (Auto) 0.0 x10^3/uL (0.0-0.2) Sodium Level 145 mmol/L (136-145) Potassium Level 3.1 mmol/L (3.5-5.1) Chloride Level 106 mmol/L (98-107) Carbon Dioxide Level 32 mmol/L (21-32) Anion Gap 7 (6-14) Blood Urea Nitrogen 70 mg/dL (7-20) Creatinine 1.2 mg/dL (0.6-1.0) Estimated GFR (Cockcroft-Gault) 60.5 BUN/Creatinine Ratio 58 (6-20) Glucose Level 131 mg/dL (70-99) Calcium Level 9.2 mg/dL (8.5-10.1) Phosphorus Level 3.5 mg/dL (2.6-4.7) Magnesium Level 2.2 mg/dL (1.8-2.4) Total Bilirubin 4.8 mg/dL (0.2-1.0) Aspartate Amino Transf (AST/SGOT) 64 U/L (15-37) Alanine Aminotransferase (ALT/SGPT) 91 U/L (14-59) Alkaline Phosphatase 107 U/L (46-116) Total Protein 6.1 g/dL (6.4-8.2) Albumin 2.8 g/dL (3.4-5.0) Albumin/Globulin Ratio 0.8 (1.0-1.7) Laboratory Tests Test 11/28/20 12:34 11/28/20 17:00 11/28/20 17:28 11/29/20 00:11 Glucose (Fingerstick) 192 mg/dL (70-99) 177 mg/dL (70-99) 164 mg/dL (70-99) O2 Saturation 91 % (92-99) Arterial Blood pH 7.38 (7.35-7.45) Arterial Blood pCO2 at Patient Temp 51 mmHg (35-46) Arterial Blood pO2 at Patient Temp 69 mmHg (75-108) Arterial Blood HCO3 30 mmol/L (21-28) Arterial Blood Base Excess 4 mmol/L (-3-3) FiO2 30% 07/11 Test 11/29/20 05:50 White Blood Count 21.0 x10^3/uL (4.0-11.0) Red Blood Count 3.65 x10^6/uL (3.50-5.40) Hemoglobin 7.8 g/dL (12.0-15.5) Hematocrit 25.3 % (36.0-47.0) Mean Corpuscular Volume 69 fL (79-100) Mean Corpuscular Hemoglobin 21 pg (25-35) Mean Corpuscular Hemoglobin Concent 31 g/dL (31-37) Red Cell Distribution Width 28.4 % (11.5-14.5) Platelet Count 48 x10^3/uL (140-400) Neutrophils (%) (Auto) 87 % (31-73) Lymphocytes (%) (Auto) 6 % (24-48) Monocytes (%) (Auto) 7 % (0-9) Eosinophils (%) (Auto) 0 % (0-3) Basophils (%) (Auto) 0 % (0-3) Neutrophils # (Auto) 18.4 x10^3/uL (1.8-7.7) Lymphocytes # (Auto) 1.3 x10^3/uL (1.0-4.8) Monocytes # (Auto) 1.4 x10^3/uL (0.0-1.1) Eosinophils # (Auto) 0.0 x10^3/uL (0.0-0.7) Basophils # (Auto) 0.0 x10^3/uL (0.0-0.2) Sodium Level 145 mmol/L (136-145) Potassium Level 3.1 mmol/L (3.5-5.1) Chloride Level 106 mmol/L (98-107) Carbon Dioxide Level 32 mmol/L (21-32) Anion Gap 7 (6-14) Blood Urea Nitrogen 70 mg/dL (7-20) Creatinine 1.2 mg/dL (0.6-1.0) Estimated GFR (Cockcroft-Gault) 60.5 BUN/Creatinine Ratio 58 (6-20) Glucose Level 131 mg/dL (70-99) Calcium Level 9.2 mg/dL (8.5-10.1) Phosphorus Level 3.5 mg/dL (2.6-4.7) Magnesium Level 2.2 mg/dL (1.8-2.4) Total Bilirubin 4.8 mg/dL (0.2-1.0) Aspartate Amino Transf (AST/SGOT) 64 U/L (15-37) Alanine Aminotransferase (ALT/SGPT) 91 U/L (14-59) Alkaline Phosphatase 107 U/L (46-116) Total Protein 6.1 g/dL (6.4-8.2) Albumin 2.8 g/dL (3.4-5.0) Albumin/Globulin Ratio 0.8 (1.0-1.7) Microbiology 11/17/20 Blood Culture - Final, Complete NO GROWTH AFTER 5 DAYS 11/15/20 Urine Culture - Final, Complete Medications Current Medications Furosemide (Lasix) 40 mg 1X ONCE IVP Last administered on 11/15/20at 11:16; Start 11/15/20 at 10:15; Stop 11/15/20 at 10:22; Status DC Vancomycin HCl 2 gm/Sodium Chloride 500 ml @ 250 mls/hr 1X ONCE IV Last administered on 11/15/20at 13:37; Start 11/15/20 at 13:00; Stop 11/15/20 at 14:59; Status DC Piperacillin Sod/ Tazobactam Sod 3.375 gm/Sodium Chloride 50 ml @ 100 mls/hr 1X ONCE IV Last administered on 11/15/20at 13:05; Start 11/15/20 at 13:00; Stop 11/15/20 at 13:29; Status DC Dextrose (Dextrose 50%-Water Syringe) 25 gm STK-MED ONCE IV ; Start 11/15/20 at 12:27; Stop 11/15/20 at 12:27; Status DC Dextrose (Dextrose 50%-Water Syringe) 25 gm 1X ONCE IV Last administered on 11/15/20at 12:35; Start 11/15/20 at 12:45; Stop 11/15/20 at 12:46; Status DC Ondansetron HCl (Zofran) 4 mg PRN Q8HRS PRN IV NAUSEA/VOMITING; Start 11/15/20 at 13:00; Stop 11/15/20 at 18:28; Status DC Fentanyl Citrate (Fentanyl 2ml Vial) 50 mcg PRN Q1HR PRN IV PAIN; Start 11/15/20 at 13:00; Stop 11/16/20 at 12:59; Status DC Acetaminophen (Tylenol) 650 mg PRN Q4HRS PRN PO FEVER > 100.3'F; Start 11/15/20 at 13:00; Stop 11/15/20 at 18:29; Status DC Dextrose/Sodium Chloride 1,000 ml @ 50 mls/hr Q20H IV Last administered on 11/17/20at 09:28; Start 11/15/20 at 16:00; Stop 11/19/20 at 17:06; Status DC Sodium Bicarbonate (Sodium Bicarb Adult 8.4% Syr) 100 meq 1X ONCE IV Last administered on 11/15/20at 16:43; Start 11/15/20 at 15:30; Stop 11/15/20 at 15:31; Status DC Vancomycin HCl (Vanco Per Pharmacy) 1 each PRN DAILY PRN MC SEE COMMENTS; Start 11/15/20 at 16:15; Stop 11/16/20 at 11:05; Status DC Cefepime HCl (Maxipime) 2 gm Q24H IVP Last administered on 11/16/20at 16:30; Start 11/15/20 at 17:00; Stop 11/17/20 at 11:51; Status DC Sennosides (Senna) 17.2 mg PRN BID PRN PO CONSTIPATION; Start 11/15/20 at 16:15 Docusate Sodium (Colace) 100 mg PRN DAILY PRN PO HARD STOOLS; Start 11/15/20 at 16:15 Ondansetron HCl (Zofran) 4 mg PRN Q6HRS PRN IVP NAUSEA/VOMITING; Start 11/15/20 at 16:15 Dextrose (Dextrose 50%-Water Syringe) 12.5 gm PRN Q15MIN PRN IV SEE COMMENTS; Start 11/15/20 at 16:15 Acetaminophen (Tylenol) 650 mg PRN Q4HRS PRN PO TEMP OVER 100.4F OR MILD PAIN Last administered on 11/23/20at 08:39; Start 11/15/20 at 16:15 Heparin Sodium (Porcine) (Heparin Sodium) 5,000 unit Q12HR SQ ; Start 11/15/20 at 21:00; Stop 11/15/20 at 16:17; Status DC Amiodarone HCl (Cordarone) 200 mg DAILY PO ; Start 11/16/20 at 09:00; Stop 11/15/20 at 16:38; Status DC Aspirin (Tatianna Aspirin) 325 mg DAILY PO ; Start 11/16/20 at 09:00; Stop 11/15/20 at 16:38; Status DC Fluticasone Propionate (Flonase) 2 spray DAILY NS Last administered on 11/25/20at 12:25; Start 11/16/20 at 09:00 Gabapentin (Neurontin) 600 mg BID PO Last administered on 11/27/20at 08:27; Start 11/15/20 at 21:00 Metoprolol Tartrate (Lopressor) 25 mg BID PO Last administered on 11/15/20at 21:28; Start 11/15/20 at 21:00; Stop 11/16/20 at 09:08; Status DC Citalopram Hydrobromide (CeleXA) 40 mg DAILY PO Last administered on 11/27/20at 08:27; Start 11/16/20 at 09:00 Pantoprazole Sodium (Protonix) 40 mg DAILYAC PO Last administered on 11/17/20at 08:36; Start 11/16/20 at 07:30; Stop 11/17/20 at 14:53; Status DC Thiamine Mononitrate (Vitamin B-1) 300 mg DAILY PO ; Start 11/15/20 at 16:30; Stop 11/15/20 at 16:22; Status DC Thiamine HCl 300 mg/Dextrose 53 ml @ 102 mls/hr Q8HRS IV Last administered on 11/17/20at 06:17; Start 11/15/20 at 22:00; Stop 11/17/20 at 09:46; Status DC Metronidazole 100 ml @ 100 mls/hr Q12HR IV Last administered on 11/17/20at 08:41; Start 11/15/20 at 21:00; Stop 11/17/20 at 11:51; Status DC Metoprolol Tartrate (Lopressor) 50 mg BID PO Last administered on 11/17/20at 09:24; Start 11/16/20 at 09:15; Stop 11/17/20 at 12:56; Status DC Furosemide (Lasix) 40 mg 1X ONCE IVP Last administered on 11/16/20at 14:08; Start 11/16/20 at 14:00; Stop 11/16/20 at 14:01; Status DC Potassium Chloride (Klor-Con) 60 meq 1X ONCE PO Last administered on 11/16/20at 14:06; Start 11/16/20 at 14:00; Stop 11/16/20 at 14:01; Status DC Calcium Carbonate/ Glycine (Tums) 500 mg PRN Q4HRS PRN PO MILD INDIGESTION; Start 11/16/20 at 21:15; Stop 11/18/20 at 09:38; Status DC Calcium Carbonate/ Glycine (Tums) 1,000 mg PRN Q4HRS PRN PO SEVERE INDIGESTION Last administered on 11/16/20at 21:37; Start 11/16/20 at 21:30 Albuterol/ Ipratropium (Duoneb) 3 ml RTQID NEB Last administered on 11/29/20at 08:02; Start 11/17/20 at 09:00 Budesonide (Pulmicort) 0.5 mg RTBID NEB Last administered on 11/29/20at 08:02; Start 11/17/20 at 09:00 Thiamine Mononitrate (Vitamin B-1) 300 mg TID PO Last administered on 11/27/20at 08:28; Start 11/17/20 at 14:00; Stop 11/28/20 at 10:07; Status DC Sodium Bicarbonate 150 meq/Dextrose 1,150 ml @ 125 mls/hr Q9H12M ONCE IV Last administered on 11/17/20at 11:26; Start 11/17/20 at 11:30; Stop 11/17/20 at 20:41; Status DC Norepinephrine Bitartrate 8 mg/ Dextrose 258 ml @ 15.344 mls/ hr CONT PRN IV PER PROTOCOL Last administered on 11/17/20at 11:32; Start 11/17/20 at 11:15; Stop 11/17/20 at 14:30; Status DC Meropenem 500 mg/ Sodium Chloride 50 ml @ 100 mls/hr Q8HRS IV Last administered on 11/18/20at 06:17; Start 11/17/20 at 12:30; Stop 11/18/20 at 13:01; Status DC Daptomycin 390 mg/ Sodium Chloride 50 ml @ 100 mls/hr Q24H IV Last administered on 11/18/20at 13:11; Start 11/17/20 at 13:00; Stop 11/18/20 at 14:09; Status DC Micafungin Sodium 100 mg/Dextrose 100 ml @ 100 mls/hr Q24H IV Last administered on 11/28/20at 12:40; Start 11/17/20 at 12:30 Lidocaine HCl (Xylocaine-Mpf 1% 2ml Vial) 2 ml 1X ONCE INJ ; Start 11/17/20 at 12:00; Stop 11/17/20 at 12:07; Status DC Vasopressin 20 unit/Dextrose 101 ml @ 12 mls/hr CONT PRN IV SEE I/O RECORD Last administered on 11/18/20at 22:15; Start 11/17/20 at 13:30 Vasopressin 20 unit/Dextrose 101 ml @ 12 mls/hr CONT PRN IV SEE I/O RECORD; Start 11/17/20 at 13:30; Status UNV Phenylephrine HCl 50 mg/Sodium Chloride 255 ml @ 12.133 mls/ hr CONT PRN IV SEE I/O RECORD; Start 11/17/20 at 13:30 Norepinephrine Bitartrate 32 mg/ Dextrose 250 ml @ 3.703 mls/ hr CONT PRN IV SEE I/O RECORD Last administered on 11/18/20at 03:50; Start 11/17/20 at 13:30 Hydrocortisone Sodium Succinate (Solu-CORTEF) 300 mg 1X ONCE IVP Last administered on 11/17/20at 14:25; Start 11/17/20 at 14:00; Stop 11/17/20 at 14:01; Status DC Hydrocortisone Sodium Succinate (Solu-CORTEF) 100 mg Q8HRS IVP Last administered on 11/26/20at 14:16; Start 11/17/20 at 22:00; Stop 11/26/20 at 19:06; Status DC Ringer's Solution 1,000 ml @ 200 mls/hr Q5H IV Last administered on 11/19/20at 08:07; Start 11/17/20 at 15:00; Stop 11/19/20 at 15:20; Status DC Ringer's Solution 1,000 ml @ 1,000 mls/hr Q1H ONCE IV Last administered on 11/17/20at 15:45; Start 11/17/20 at 14:00; Stop 11/17/20 at 14:59; Status DC Fentanyl Citrate 30 ml @ 0 mls/hr CONT PRN IV SEE PROTOCOL Last administered on 11/19/20at 16:22; Start 11/17/20 at 14:00; Stop 11/19/20 at 23:00; Status DC Fentanyl Citrate (Fentanyl 2ml Vial) 25 mcg PRN Q1HR PRN IV SEE COMMENTS; Start 11/17/20 at 14:00 Fentanyl Citrate (Fentanyl 2ml Vial) 50 mcg PRN Q1HR PRN IV SEE COMMENTS; Start 11/17/20 at 14:00 Chlorhexidine Gluconate (Peridex) 15 ml BID MM Last administered on 11/19/20at 09:00; Start 11/17/20 at 21:00; Stop 11/19/20 at 20:39; Status DC Morphine Sulfate (Morphine Sulfate) 2 mg PRN Q1HR PRN IV SEE COMMENTS.; Start 11/17/20 at 14:00 Morphine Sulfate (Morphine Sulfate) 4 mg PRN Q1HR PRN IV SEE COMMENTS.; Start 11/17/20 at 14:00 Midazolam HCl 100 ml @ 0 mls/hr CONT PRN IV SEE PROTOCOL Last administered on 11/24/20at 18:33; Start 11/17/20 at 14:00; Stop 11/26/20 at 13:32; Status DC Succinylcholine Chloride (Anectine) 200 mg STK-MED ONCE .ROUTE ; Start 11/17/20 at 14:00; Stop 11/17/20 at 14:00; Status DC Etomidate (Amidate) 20 mg STK-MED ONCE IV ; Start 11/17/20 at 14:00; Stop 11/17/20 at 14:00; Status DC Sodium Bicarbonate (Sodium Bicarb Adult 8.4% Syr) 50 meq STK-MED ONCE .ROUTE ; Start 11/17/20 at 14:02; Stop 11/17/20 at 14:03; Status DC Sodium Bicarbonate (Sodium Bicarb Adult 8.4% Syr) 100 meq 1X ONCE IV Last administered on 11/17/20at 14:20; Start 11/17/20 at 14:15; Stop 11/17/20 at 14:16; Status DC Etomidate (Amidate) 12 mg 1X ONCE IV Last administered on 11/17/20at 14:15; Start 11/17/20 at 14:15; Stop 11/17/20 at 14:16; Status DC Succinylcholine Chloride (Anectine) 100 mg 1X ONCE IV Last administered on 11/17/20at 14:15; Start 11/17/20 at 14:15; Stop 11/17/20 at 14:16; Status DC Sodium Bicarbonate (Sodium Bicarb Adult 8.4% Syr) 100 meq 1X ONCE IV Last administered on 11/17/20at 14:15; Start 11/17/20 at 14:15; Stop 11/17/20 at 14:16; Status DC Epinephrine HCl 5 mg/Sodium Chloride 255 ml @ 24.266 mls/ hr CONT PRN IV SEE I/O RECORD Last administered on 11/17/20at 19:44; Start 11/17/20 at 14:45; Stop 11/17/20 at 20:00; Status DC Pantoprazole Sodium (PROTONIX VIAL for IV PUSH) 40 mg DAILYAC IVP Last administered on 11/28/20at 09:27; Start 11/18/20 at 07:30 Albumin Human 500 ml @ 125 mls/hr 1X ONCE IV Last administered on 11/17/20at 15:44; Start 11/17/20 at 15:15; Stop 11/17/20 at 19:14; Status DC Digoxin (Lanoxin) 500 mcg 1X ONCE IV Last administered on 11/17/20at 15:43; Start 11/17/20 at 15:30; Stop 11/17/20 at 15:31; Status DC Lidocaine HCl (Xylocaine 2% Topical 5gm Tube) 5 makenna STK-MED ONCE TP ; Start 11/16/20 at 12:00; Stop 11/17/20 at 15:35; Status DC Calcium Gluconate 1000 mg/Sodium Chloride 110 ml @ 220 mls/hr 1X ONCE IV Last administered on 11/17/20at 17:36; Start 11/17/20 at 17:15; Stop 11/17/20 at 17:44; Status DC Linezolid/Dextrose 300 ml @ 300 mls/hr Q12HR IV ; Start 11/17/20 at 21:00; Status Cancel Linezolid/Dextrose 300 ml @ 300 mls/hr Q12HR IV ; Start 11/17/20 at 21:00; Status UNV Linezolid/Dextrose 300 ml @ 300 mls/hr Q12HR IV Last administered on 11/26/20at 11:26; Start 11/17/20 at 18:00; Stop 11/26/20 at 15:42; Status DC Epinephrine HCl 10 mg/Sodium Chloride 250 ml @ 11.85 mls/ hr CONT PRN IV SEE I/O RECORD Last administered on 11/17/20at 22:09; Start 11/17/20 at 17:30 Vecuronium [place] (Norcuron Bolus) 6 mg PRN Q2HR PRN IV Vent management Last administered on 11/17/20at 22:11; Start 11/17/20 at 20:00 Lidocaine HCl (Buffered Lidocaine 1%) 3 ml STK-MED ONCE .ROUTE ; Start 11/18/20 at 09:21; Stop 11/18/20 at 09:22; Status DC Lidocaine HCl (Buffered Lidocaine 1%) 6 ml 1X ONCE INJ Last administered on 11/18/20at 09:53; Start 11/18/20 at 09:45; Stop 11/18/20 at 09:46; Status DC Potassium Chloride 15 meq/ Bicarbonate Dialysis Soln w/ out KCl 5,007.5 ml @ 1,250 mls/ hr Q4H1M IV Last administered on 11/22/20at 07:35; Start 11/18/20 at 11:00; Stop 11/23/20 at 21:49; Status DC Potassium Chloride 15 meq/ Bicarbonate Dialysis Soln w/ out KCl 5,007.5 ml @ 1,250 mls/ hr Q4H1M IV Last administered on 11/22/20at 07:35; Start 11/18/20 at 11:00; Stop 11/23/20 at 21:49; Status DC Potassium Chloride 15 meq/ Bicarbonate Dialysis Soln w/ out KCl 5,007.5 ml @ 1,250 mls/ hr Q4H1M IV Last administered on 11/22/20at 07:35; Start 11/18/20 at 11:00; Stop 11/23/20 at 21:49; Status DC Tranexamic Acid 50 ml @ 50 mls/hr Q12HR INJ Last administered on 11/23/20at 08 :40; Start 11/18/20 at 13:00; Stop 11/23/20 at 16:00; Status DC Daptomycin 390 mg/ Sodium Chloride 50 ml @ 100 mls/hr Q48H IV ; Start 11/20/20 at 13:00; Stop 11/18/20 at 16:23; Status DC Meropenem 500 mg/ Sodium Chloride 50 ml @ 100 mls/hr DAILY IV ; Start 11/19/20 at 09:00; Stop 11/18/20 at 16:16; Status DC Prothrombin Complex Concent (Human) 2000 unit/ Miscellaneous 80 ml @ 160 mls/hr 1X ONCE IV Last administered on 11/18/20at 14:48; Start 11/18/20 at 14:30; Stop 11/18/20 at 14:59; Status DC Meropenem 1 gm/ Sodium Chloride 100 ml @ 200 mls/hr Q12HR IV Last administered on 11/21/20at 21:22; Start 11/18/20 at 21:00; Stop 11/22/20 at 15:50; Status DC Daptomycin 500 mg/ Sodium Chloride 50 ml @ 100 mls/hr Q48H IV Last administered on 11/21/20at 20:46; Start 11/19/20 at 21:00; Stop 11/22/20 at 15:52; Status DC Sodium Phosphate 20 mmol/Sodium Chloride 256.6667 ml @ 64.167 m... 1X ONCE IV Last administered on 11/19/20at 13:54; Start 11/19/20 at 12:30; Stop 11/19/20 at 16:29; Status DC Sodium Chloride 1,000 ml @ 0 mls/hr Q0M IV ; Start 11/19/20 at 15:30 Fentanyl Citrate 55 ml @ 0 mls/hr CONT PRN PRN IV SEDATION/PAIN CONTROL Last administered on 11/27/20at 11:27; Start 11/19/20 at 21:00 Potassium Chloride/Water 100 ml @ 100 mls/hr 1X ONCE IV Last administered on 11/20/20at 11:38; Start 11/20/20 at 12:00; Stop 11/20/20 at 12:59; Status DC Sodium Phosphate 20 mmol/Sodium Chloride 256.6667 ml @ 64.167 m... 1X ONCE IV Last administered on 11/20/20at 11:46; Start 11/20/20 at 11:15; Stop 11/20/20 at 15:14; Status DC Potassium Chloride/Water 100 ml @ 100 mls/hr Q1H IV Last administered on 11/20/20at 20:15; Start 11/20/20 at 19:00; Stop 11/20/20 at 20:59; Status DC Sodium Phosphate 20 mmol/Sodium Chloride 256.6667 ml @ 64.167 m... 1X ONCE IV Last administered on 11/21/20at 00:54; Start 11/21/20 at 01:00; Stop 11/21/20 at 04:59; Status DC Info (Tpn Per Pharmacy) 1 each PRN DAILY PRN MC SEE COMMENTS; Start 11/21/20 at 11:45; Status UNV Sodium Phosphate 15 mmol/Sodium Chloride 255 ml @ 62.5 mls/hr 1X ONCE IV Last administered on 11/21/20at 18:19; Start 11/21/20 at 18:30; Stop 11/21/20 at 22:34; Status DC Potassium Chloride/Water 100 ml @ 100 mls/hr 1X ONCE IV Last administered on 11/22/20at 00:55; Start 11/22/20 at 01:00; Stop 11/22/20 at 01:59; Status DC Potassium Chloride/Water 100 ml @ 100 mls/hr 1X ONCE IV Last administered on 11/22/20at 09:35; Start 11/22/20 at 10:00; Stop 11/22/20 at 10:59; Status DC Sodium Phosphate 15 mmol/Sodium Chloride 105 ml @ 105 mls/hr 1X ONCE IV Last administered on 11/22/20at 10:40; Start 11/22/20 at 10:00; Stop 11/22/20 at 10:59; Status DC Lidocaine HCl (Lidocaine 1% 20ml Vial) 20 ml STK-MED ONCE .ROUTE ; Start 11/22/20 at 11:33; Stop 11/22/20 at 11:33; Status DC Iodixanol (Visipaque 320) 100 ml STK-MED ONCE .ROUTE ; Start 11/22/20 at 11:33; Stop 11/22/20 at 11:33; Status DC Heparin Sodium/ Sodium Chloride 500 ml @ As Directed STK-MED ONCE .ROUTE ; Start 11/22/20 at 11:33; Stop 11/22/20 at 11:34; Status DC Daptomycin 400 mg/ Sodium Chloride 50 ml @ 100 mls/hr Q48H IV ; Start 11/22/20 at 16:00; Stop 11/22/20 at 15:53; Status DC Daptomycin 400 mg/ Sodium Chloride 50 ml @ 100 mls/hr Q48H IV Last administered on 11/27/20at 21:44; Start 11/23/20 at 21:00 Meropenem 500 mg/ Sodium Chloride 50 ml @ 100 mls/hr DAILY IV Last administered on 11/28/20at 09:26; Start 11/23/20 at 09:00 Milrinone Lactate/ Dextrose 100 ml @ 8.786 mls/ hr CONT PRN IV SEE I/O RECORD Last administered on 11/29/20at 03:06; Start 11/23/20 at 10:15 Furosemide (Lasix) 40 mg 1X ONCE IVP Last administered on 11/23/20at 10:30; Start 11/23/20 at 10:30; Stop 11/23/20 at 10:31; Status DC Bisacodyl (Dulcolax Supp) 10 mg PRN DAILY PRN RI CONSTIPATION Last administered on 11/24/20at 21:14; Start 11/23/20 at 12:30 Sodium Chloride 1,000 ml @ 1,000 mls/hr Q1H PRN IV hypotension; Start 11/23/20 at 13:15; Stop 11/23/20 at 19:14; Status DC Albumin Human 200 ml @ 200 mls/hr 1X PRN PRN IV Hypotension; Start 11/23/20 at 13:15; Stop 11/23/20 at 19:14; Status DC Info (PHARMACY MONITORING -- do not chart) 1 each PRN DAILY PRN MC SEE COMMENTS; Start 11/23/20 at 13:15; Stop 11/25/20 at 11:18; Status DC Furosemide (Lasix) 40 mg DAILY IVP Last administered on 11/28/20at 09:23; Start 11/24/20 at 09:00 Metoprolol Tartrate (Lopressor) 25 mg BID PO Last administered on 11/27/20at 08:28; Start 11/23/20 at 14:00; Stop 11/27/20 at 10:29; Status DC Sodium Chloride 1,000 ml @ 1,000 mls/hr Q1H PRN IV hypotension; Start 11/24/20 at 14:00; Stop 11/24/20 at 19:59; Status DC Albumin Human 200 ml @ 200 mls/hr 1X PRN PRN IV Hypotension Last administered on 11/24/20at 14:15; Start 11/24/20 at 14:00; Stop 11/24/20 at 19:59; Status DC Sodium Chloride 1,000 ml @ 400 mls/hr Q2H30M PRN IV PATENCY; Start 11/24/20 at 14:00; Stop 11/25/20 at 01:59; Status DC Info (PHARMACY MONITORING -- do not chart) 1 each PRN DAILY PRN MC SEE COMMENTS; Start 11/24/20 at 14:00; Status UNV Info (PHARMACY MONITORING -- do not chart) 1 each PRN DAILY PRN MC SEE COMMENTS; Start 11/24/20 at 14:00; Status UNV Potassium Chloride/Water 100 ml @ 100 mls/hr 1X ONCE IV Last administered on 11/24/20at 14:19; Start 11/24/20 at 14:30; Stop 11/24/20 at 15:29; Status DC Aspirin (Aspirin Chewable) 81 mg DAILYWBKFT PO ; Start 11/25/20 at 08:00; Stop 11/25/20 at 09:44; Status DC Sodium Chloride 1,000 ml @ 1,000 mls/hr Q1H PRN IV hypotension; Start 11/25/20 at 08:00; Stop 11/25/20 at 13:59; Status DC Albumin Human 200 ml @ 200 mls/hr 1X PRN PRN IV Hypotension; Start 11/25/20 at 08:00; Stop 11/25/20 at 13:59; Status DC Sodium Chloride (Normal Saline Flush) 10 ml 1X PRN PRN IV AP catheter pack; Start 11/25/20 at 08:00; Stop 11/25/20 at 21:00; Status DC Sodium Chloride (Normal Saline Flush) 10 ml 1X PRN PRN IV NONPROFIT MANAGER catheter pack; Start 11/25/20 at 08:00; Stop 11/25/20 at 21:00; Status DC Sodium Chloride 1,000 ml @ 400 mls/hr Q2H30M PRN IV PATENCY; Start 11/25/20 at 08:00; Stop 11/25/20 at 19:59; Status DC Info (PHARMACY MONITORING -- do not chart) 1 each PRN DAILY PRN MC SEE COMMENTS; Start 11/25/20 at 08:00; Stop 11/25/20 at 11:23; Status DC Info (PHARMACY MONITORING -- do not chart) 1 each PRN DAILY PRN MC SEE COMMENTS; Start 11/25/20 at 08:00 Info (Tpn Per Pharmacy) 1 each PRN DAILY PRN MC SEE COMMENTS Last administered on 11/28/20at 12:16; Start 11/25/20 at 12:00 Potassium Chloride 20 meq/ Magnesium Sulfate 5 meq/ Multivitamins 5 ml/Zinc/Copper/ Manganese/ Selenium 1 ml/ Total Parenteral Nutrition/Amino Acids/Dextrose/ Fat Emulsion Intravenous 984 ml @ 41 mls/hr TPN CONT IV Last administered on 11/25/20at 22:25; Start 11/25/20 at 22:00; Stop 11/26/20 at 21:59; Status DC Sodium Chloride 50 meq/Potassium Chloride 20 meq/ Magnesium Sulfate 5 meq/ Multivitamins 5 ml/Zinc/Copper/ Manganese/ Selenium 1 ml/ Total Parenteral Nutrition/Amino Acids/Dextrose/ Fat Emulsion Intravenous 984 ml @ 41 mls/hr TPN CONT IV Last administered on 11/26/20at 21:27; Start 11/26/20 at 22:00; Stop 11/27/20 at 21:59; Status DC Propofol 100 ml @ 2.202 mls/ hr CONT PRN IV PER PROTOCOL Last administered on 11/29/20at 05:58; Start 11/26/20 at 11:00 Bisacodyl (Dulcolax Supp) 10 mg 1X ONCE RI Last administered on 11/26/20at 21:08; Start 11/26/20 at 16:00; Stop 11/26/20 at 16:01; Status DC Hydrocortisone Sodium Succinate (Solu-CORTEF) 50 mg Q8HRS IVP Last administered on 11/29/20at 05:58; Start 11/26/20 at 22:00 Insulin Glargine (Lantus Syringe) 9 unit QHS SQ Last administered on 11/28/20at 21:03; Start 11/27/20 at 21:00 Insulin Human Lispro (HumaLOG) 0-9 UNITS TIDWMEALS SQ Last administered on 11/28/20at 17:30; Start 11/27/20 at 08:00; Stop 11/28/20 at 19:12; Status DC Dextrose (Dextrose 50%-Water Syringe) 12.5 gm PRN Q15MIN PRN IV SEE COMMENTS; Start 11/27/20 at 07:15; Status UNV Metoprolol Tartrate (Lopressor Vial) 5 mg BID IVP Last administered on 11/28/20at 21:30; Start 11/27/20 at 11:00 Sodium Chloride 50 meq/Potassium Chloride 20 meq/ Magnesium Sulfate 5 meq/ Multivitamins 5 ml/Zinc/Copper/ Manganese/ Selenium 1 ml/ Total Parenteral Nutrition/Amino Acids/Dextrose 984 ml @ 41 mls/hr TPN CONT IV Last administered on 11/27/20at 21:47; Start 11/27/20 at 22:00; Stop 11/28/20 at 21:59; Status DC Potassium Chloride/Water 100 ml @ 100 mls/hr Q1H IV Last administered on 11/28/20at 12:31; Start 11/28/20 at 11:00; Stop 11/28/20 at 12:59; Status DC Sodium Chloride 50 meq/Potassium Chloride 30 meq/ Magnesium Sulfate 5 meq/ Multivitamins 5 ml/Zinc/Copper/ Manganese/ Selenium 1 ml/ Thiamine HCl 100 mg/Total Parenteral Nutrition/Amino Acids/Dextrose 984 ml @ 41 mls/hr TPN CONT IV Last administered on 11/28/20at 21:48; Start 11/28/20 at 22:00; Stop 11/29/20 at 21:59 Insulin Human Lispro (HumaLOG) 0-9 UNITS Q6HRS SQ Last administered on 11/29/20at 00:18; Start 11/29/20 at 00:00 Active Scripts Active Amiodarone Hcl 200 Mg Tablet 200 Mg PO DAILY 30 Days Eliquis (Apixaban) 5 Mg Tablet 5 Mg PO BID 30 Days Doxycycline Hyclate 100 Mg Tablet 100 Mg PO BID 5 Days Klor-Con M20 (Potassium Chloride) 20 Meq Tab.er.prt 20 Meq PO DAILYWBKFT 30 Days Furosemide 40 Mg Tablet 40 Mg PO DAILY 30 Days Reported Omeprazole 20 Mg Capsule.dr 1 Cap PO DAILY Metoprolol Tartrate 25 Mg Tablet 1 Tab PO BID Feosol (Ferrous Sulfate) 325 Mg Tablet 325 Mg PO DAILY Aspirin 325 Mg Tablet 1 Tab PO DAILY Amitriptyline Hcl 50 Mg Tablet 1 Tab PO QHS Ultram (Tramadol Hcl) 50 Mg Tablet 1 Tab PO Q6HRS PRN Dulera 100 Mcg/5 Mcg Inhaler (Mometasone/Formoterol) 13 Gm Hfa.aer.ad 2 Puff IH BID Lidoderm (Lidocaine) 700 Mg Adh..patch 1 Patch TP DAILY PRN Neurontin (Gabapentin) 300 Mg Capsule 2 Cap PO BID Flonase (Fluticasone Propionate) 16 Gm [place].susp 2 [place] NS DAILY Cyclobenzaprine Hcl 10 Mg Tablet 1 Tab PO TID PRN Celexa (Citalopram Hydrobromide) 40 Mg Tablet 1 Tab PO DAILY Cetirizine Hcl 10 Mg Tablet 1 Tab PO DAILY Proair Hfa Inhaler (Albuterol Sulfate) 8.5 Gm Hfa.aer.ad 2 Puff IH PRN Q4-6HRS Vitals/I & O Vital Sign - Last 24 Hours 11/28/20 11/28/20 11/28/20 11/28/20 09:00 09:22 10:00 11:24 Temp 98.2 98.2 Pulse 118 119 106 119 Resp 30 18 9 B/P (MAP) 154/84 (107) 162/85 130/72 (91) 136/74 (94) Pulse Ox 99 99 100 O2 Delivery Ventilator Ventilator Ventilator 11/28/20 11/28/20 11/28/20 11/28/20 11:31 12:00 12:19 12:24 Pulse 105 Resp 14 B/P (MAP) 124/68 (86) Pulse Ox 100 100 O2 Delivery Ventilator Ventilator Mechanical Ventilator 11/28/20 11/28/20 11/28/20 11/28/20 13:04 13:58 15:37 15:47 Temp 98.1 98.1 Pulse 122 108 107 Resp 21 18 12 B/P (MAP) 112/60 (77) 109/59 (76) 110/59 (76) Pulse Ox 100 100 100 100 O2 Delivery Ventilator Ventilator Ventilator Ventilator 11/28/20 11/28/20 11/28/20 11/28/20 16:00 16:00 16:37 17:23 Pulse 121 123 Resp 36 19 B/P (MAP) 103/51 (68) 117/64 (81) Pulse Ox 99 100 99 O2 Delivery Mechanical Ventilator Ventilator Ventilator 11/28/20 11/28/20 11/28/20 11/28/20 18:00 19:00 19:52 20:00 Pulse 117 114 Resp 16 16 B/P (MAP) 121/85 (97) 109/58 (75) Pulse Ox 100 100 100 O2 Delivery Ventilator Ventilator Ventilator Mechanical Ventilator 11/28/20 11/28/20 11/28/20 11/28/20 20:00 21:00 21:30 22:00 Temp 98.4 98.4 Pulse 108 103 99 93 Resp 16 16 18 B/P (MAP) 120/64 (82) 104/61 (75) 109/59 98/55 (69) Pulse Ox 100 100 100 O2 Delivery Ventilator Ventilator Ventilator 11/28/20 11/28/20 11/28/20 11/29/20 23:00 23:24 23:59 00:47 Temp 98.3 98.3 Pulse 96 92 Resp 18 18 B/P (MAP) 99/66 (77) 102/71 (81) Pulse Ox 100 100 100 O2 Delivery Ventilator Ventilator Mechanical Ventilator Ventilator 11/29/20 11/29/20 11/29/20 11/29/20 01:00 02:00 02:46 03:00 Pulse 87 88 87 Resp 18 18 16 B/P (MAP) 122/79 (93) 115/77 (90) 131/78 (95) Pulse Ox 100 100 100 100 O2 Delivery Ventilator Ventilator Ventilator Ventilator 11/29/20 11/29/20 11/29/20 11/29/20 04:00 04:00 05:00 06:00 Temp 98.2 98.2 Pulse 96 96 96 Resp 14 16 16 B/P (MAP) 137/76 (96) 110/72 (85) 132/93 (106) Pulse Ox 100 100 100 O2 Delivery Ventilator Mechanical Ventilator Ventilator Ventilator 11/29/20 11/29/20 11/29/20 11/29/20 06:56 07:56 08:00 08:03 Temp 98.1 98.1 Pulse 97 101 Resp 17 18 B/P (MAP) 116/74 (88) 133/70 (91) Pulse Ox 100 100 100 O2 Delivery Ventilator Mechanical Ventilator Ventilator Ventilator Intake and Output 11/28/20 11/28/20 11/29/20 15:00 23:00 07:00 Intake Total 350 ml 925 ml 589 ml Output Total 550 ml 1370 ml 700 ml Balance -200 ml -445 ml -111 ml Justicifation of Admission Dx: Justifications for Admission: Justification of Admission Dx: Yes CHF: Cardiac Arrhythmias SHRUTHI ARCHIBALD MD Nov 29, 2020 08:16
[2020-11-29] MEDS: FLUTICASONE 50MCG/NASAL SPRAY 16GM BOTTLE. NS SCH (09:00)
[2020-11-29] MEDS: CITALOPRAM 20 MG TABLET. PO SCH (09:00)
[2020-11-29] MEDS: GABAPENTIN 300 MG CAPSULE. PO SCH (09:00)
--- NOTE | 2020-11-29 09:29 | PDOC ---
Date of Service: DATE: 11/29/20 TIME: 09:24 Objective: Objective: ~400cc since OG canister changed yesterday. Vital Signs: Vital Signs Date Time Temp Pulse Resp B/P (MAP) Pulse Ox O2 Delivery O2 Flow Rate FiO2 11/29/20 08:03 100 Ventilator 11/29/20 08:00 101 18 133/70 (91) 11/29/20 06:56 98.1 98.1 Labs: Laboratory Tests Test 11/28/20 12:34 11/28/20 17:00 11/28/20 17:28 11/29/20 00:11 Glucose (Fingerstick) 192 mg/dL 177 mg/dL 164 mg/dL O2 Saturation 91 % Arterial Blood pH 7.38 Arterial Blood pCO2 at Patient Temp 51 mmHg Arterial Blood pO2 at Patient Temp 69 mmHg Arterial Blood HCO3 30 mmol/L Arterial Blood Base Excess 4 mmol/L FiO2 30% 10 Test 11/29/20 05:50 White Blood Count 21.0 x10^3/uL Red Blood Count 3.65 x10^6/uL Hemoglobin 7.8 g/dL Hematocrit 25.3 % Mean Corpuscular Volume 69 fL Mean Corpuscular Hemoglobin 21 pg Mean Corpuscular Hemoglobin Concent 31 g/dL Red Cell Distribution Width 28.4 % Platelet Count 48 x10^3/uL Neutrophils (%) (Auto) 87 % Lymphocytes (%) (Auto) 6 % Monocytes (%) (Auto) 7 % Eosinophils (%) (Auto) 0 % Basophils (%) (Auto) 0 % Neutrophils # (Auto) 18.4 x10^3/uL Lymphocytes # (Auto) 1.3 x10^3/uL Monocytes # (Auto) 1.4 x10^3/uL Eosinophils # (Auto) 0.0 x10^3/uL Basophils # (Auto) 0.0 x10^3/uL Sodium Level 145 mmol/L Potassium Level 3.1 mmol/L Chloride Level 106 mmol/L Carbon Dioxide Level 32 mmol/L Anion Gap 7 Blood Urea Nitrogen 70 mg/dL Creatinine 1.2 mg/dL Estimated GFR (Cockcroft-Gault) 60.5 BUN/Creatinine Ratio 58 Glucose Level 131 mg/dL Calcium Level 9.2 mg/dL Phosphorus Level 3.5 mg/dL Magnesium Level 2.2 mg/dL Total Bilirubin 4.8 mg/dL Aspartate Amino Transf (AST/SGOT) 64 U/L Alanine Aminotransferase (ALT/SGPT) 91 U/L Alkaline Phosphatase 107 U/L Total Protein 6.1 g/dL Albumin 2.8 g/dL Albumin/Globulin Ratio 0.8 PE: GEN: intubated LUNGS: clear anteriorly HEART: mildly tachycardic ABD: soft, fairly quiet, winces with palpation, dark reddish watery contents in OGT NEURO/PSYCH: awake, slowly follows commands A/P: NICM, resp failure/pulm HTN, KENNETH Bloody OG output COREEN - stable Thrombocytopenia, elevated LFTs (fluctuating) COVID negative 11/17 -- Continue TPN, OGT, and IV PPI. Monitor labs. Last KUB okay on 11/24. Justicifation of Admission Dx: Justifications for Admission: Justification of Admission Dx: Yes CHF: Cardiac Arrhythmias EMILEE WRIGHT Nov 29, 2020 09:29
--- NOTE | 2020-11-29 09:44 | PDOC ---
PULMONARY PROGRESS NOTES DATE: 11/29/20 TIME: 09:36 Subjective Patient intubated 11/17 remains on vent [id number]/400/30%/5 Failed CPAP 11/26, increase BP, PCO2, failed again 11/28 coffee ground OG Vitals Vital Signs Date Time Temp Pulse Resp B/P (MAP) Pulse Ox O2 Delivery O2 Flow Rate FiO2 11/29/20 08:03 100 Ventilator 11/29/20 08:00 101 18 133/70 (91) 11/29/20 06:56 98.1 98.1 Comments Intubated General: Alert Lungs: Clear Cardiovascular: S1, S2 Abdomen: Soft, Non-tender Extremities: No Edema Skin: Warm, Dry Labs Laboratory Tests Test 11/27/20 12:59 11/27/20 16:40 11/28/20 06:20 11/28/20 12:34 Glucose (Fingerstick) 249 mg/dL (70-99) 192 mg/dL (70-99) 192 mg/dL (70-99) White Blood Count 19.8 x10^3/uL (4.0-11.0) Red Blood Count 3.62 x10^6/uL (3.50-5.40) Hemoglobin 7.7 g/dL (12.0-15.5) Hematocrit 24.9 % (36.0-47.0) Mean Corpuscular Volume 69 fL (79-100) Mean Corpuscular Hemoglobin 21 pg (25-35) Mean Corpuscular Hemoglobin Concent 31 g/dL (31-37) Red Cell Distribution Width 29.3 % (11.5-14.5) Platelet Count 51 x10^3/uL (140-400) Neutrophils (%) (Auto) 90 % (31-73) Lymphocytes (%) (Auto) 5 % (24-48) Monocytes (%) (Auto) 5 % (0-9) Eosinophils (%) (Auto) 0 % (0-3) Basophils (%) (Auto) 0 % (0-3) Neutrophils # (Auto) 17.8 x10^3/uL (1.8-7.7) Lymphocytes # (Auto) 1.0 x10^3/uL (1.0-4.8) Monocytes # (Auto) 1.0 x10^3/uL (0.0-1.1) Eosinophils # (Auto) 0.0 x10^3/uL (0.0-0.7) Basophils # (Auto) 0.0 x10^3/uL (0.0-0.2) Sodium Level 140 mmol/L (136-145) Potassium Level 3.4 mmol/L (3.5-5.1) Chloride Level 102 mmol/L (98-107) Carbon Dioxide Level 30 mmol/L (21-32) Anion Gap 8 (6-14) Blood Urea Nitrogen 70 mg/dL (7-20) Creatinine 1.5 mg/dL (0.6-1.0) Estimated GFR (Cockcroft-Gault) 46.8 Glucose Level 181 mg/dL (70-99) Hemoglobin A1c 6.0 % (4.8-5.6) Calcium Level 9.3 mg/dL (8.5-10.1) Phosphorus Level 3.5 mg/dL (2.6-4.7) Magnesium Level 2.2 mg/dL (1.8-2.4) Triglycerides Level 90 mg/dL (0-150) Test 11/28/20 17:00 11/28/20 17:28 11/29/20 00:11 11/29/20 05:50 O2 Saturation 91 % (92-99) Arterial Blood pH 7.38 (7.35-7.45) Arterial Blood pCO2 at Patient Temp 51 mmHg (35-46) Arterial Blood pO2 at Patient Temp 69 mmHg (75-108) Arterial Blood HCO3 30 mmol/L (21-28) Arterial Blood Base Excess 4 mmol/L (-3-3) FiO2 30% 10/5 Glucose (Fingerstick) 177 mg/dL (70-99) 164 mg/dL (70-99) White Blood Count 21.0 x10^3/uL (4.0-11.0) Red Blood Count 3.65 x10^6/uL (3.50-5.40) Hemoglobin 7.8 g/dL (12.0-15.5) Hematocrit 25.3 % (36.0-47.0) Mean Corpuscular Volume 69 fL (79-100) Mean Corpuscular Hemoglobin 21 pg (25-35) Mean Corpuscular Hemoglobin Concent 31 g/dL (31-37) Red Cell Distribution Width 28.4 % (11.5-14.5) Platelet Count 48 x10^3/uL (140-400) Neutrophils (%) (Auto) 87 % (31-73) Lymphocytes (%) (Auto) 6 % (24-48) Monocytes (%) (Auto) 7 % (0-9) Eosinophils (%) (Auto) 0 % (0-3) Basophils (%) (Auto) 0 % (0-3) Neutrophils # (Auto) 18.4 x10^3/uL (1.8-7.7) Lymphocytes # (Auto) 1.3 x10^3/uL (1.0-4.8) Monocytes # (Auto) 1.4 x10^3/uL (0.0-1.1) Eosinophils # (Auto) 0.0 x10^3/uL (0.0-0.7) Basophils # (Auto) 0.0 x10^3/uL (0.0-0.2) Sodium Level 145 mmol/L (136-145) Potassium Level 3.1 mmol/L (3.5-5.1) Chloride Level 106 mmol/L (98-107) Carbon Dioxide Level 32 mmol/L (21-32) Anion Gap 7 (6-14) Blood Urea Nitrogen 70 mg/dL (7-20) Creatinine 1.2 mg/dL (0.6-1.0) Estimated GFR (Cockcroft-Gault) 60.5 BUN/Creatinine Ratio 58 (6-20) Glucose Level 131 mg/dL (70-99) Calcium Level 9.2 mg/dL (8.5-10.1) Phosphorus Level 3.5 mg/dL (2.6-4.7) Magnesium Level 2.2 mg/dL (1.8-2.4) Total Bilirubin 4.8 mg/dL (0.2-1.0) Aspartate Amino Transf (AST/SGOT) 64 U/L (15-37) Alanine Aminotransferase (ALT/SGPT) 91 U/L (14-59) Alkaline Phosphatase 107 U/L (46-116) Total Protein 6.1 g/dL (6.4-8.2) Albumin 2.8 g/dL (3.4-5.0) Albumin/Globulin Ratio 0.8 (1.0-1.7) Laboratory Tests Test 11/28/20 12:34 11/28/20 17:00 11/28/20 17:28 11/29/20 00:11 Glucose (Fingerstick) 192 mg/dL (70-99) 177 mg/dL (70-99) 164 mg/dL (70-99) O2 Saturation 91 % (92-99) Arterial Blood pH 7.38 (7.35-7.45) Arterial Blood pCO2 at Patient Temp 51 mmHg (35-46) Arterial Blood pO2 at Patient Temp 69 mmHg (75-108) Arterial Blood HCO3 30 mmol/L (21-28) Arterial Blood Base Excess 4 mmol/L (-3-3) FiO2 30% 07/11 Test 11/29/20 05:50 White Blood Count 21.0 x10^3/uL (4.0-11.0) Red Blood Count 3.65 x10^6/uL (3.50-5.40) Hemoglobin 7.8 g/dL (12.0-15.5) Hematocrit 25.3 % (36.0-47.0) Mean Corpuscular Volume 69 fL (79-100) Mean Corpuscular Hemoglobin 21 pg (25-35) Mean Corpuscular Hemoglobin Concent 31 g/dL (31-37) Red Cell Distribution Width 28.4 % (11.5-14.5) Platelet Count 48 x10^3/uL (140-400) Neutrophils (%) (Auto) 87 % (31-73) Lymphocytes (%) (Auto) 6 % (24-48) Monocytes (%) (Auto) 7 % (0-9) Eosinophils (%) (Auto) 0 % (0-3) Basophils (%) (Auto) 0 % (0-3) Neutrophils # (Auto) 18.4 x10^3/uL (1.8-7.7) Lymphocytes # (Auto) 1.3 x10^3/uL (1.0-4.8) Monocytes # (Auto) 1.4 x10^3/uL (0.0-1.1) Eosinophils # (Auto) 0.0 x10^3/uL (0.0-0.7) Basophils # (Auto) 0.0 x10^3/uL (0.0-0.2) Sodium Level 145 mmol/L (136-145) Potassium Level 3.1 mmol/L (3.5-5.1) Chloride Level 106 mmol/L (98-107) Carbon Dioxide Level 32 mmol/L (21-32) Anion Gap 7 (6-14) Blood Urea Nitrogen 70 mg/dL (7-20) Creatinine 1.2 mg/dL (0.6-1.0) Estimated GFR (Cockcroft-Gault) 60.5 BUN/Creatinine Ratio 58 (6-20) Glucose Level 131 mg/dL (70-99) Calcium Level 9.2 mg/dL (8.5-10.1) Phosphorus Level 3.5 mg/dL (2.6-4.7) Magnesium Level 2.2 mg/dL (1.8-2.4) Total Bilirubin 4.8 mg/dL (0.2-1.0) Aspartate Amino Transf (AST/SGOT) 64 U/L (15-37) Alanine Aminotransferase (ALT/SGPT) 91 U/L (14-59) Alkaline Phosphatase 107 U/L (46-116) Total Protein 6.1 g/dL (6.4-8.2) Albumin 2.8 g/dL (3.4-5.0) Albumin/Globulin Ratio 0.8 (1.0-1.7) Medications Active Scripts Medications Dose Route/Sig Max Daily Dose Days Date Category Amiodarone Hcl 200 Mg Tablet 200 Mg PO DAILY 30 09/29/20 Rx Eliquis (Apixaban) 5 Mg Tablet 5 Mg PO BID 30 09/29/20 Rx Doxycycline Hyclate 100 Mg Tablet 100 Mg PO BID 5 09/29/20 Rx Klor-Con M20 (Potassium Chloride) 20 Meq Tab.er.prt 20 Meq PO DAILYWBKFT 30 09/29/20 Rx Furosemide 40 Mg Tablet 40 Mg PO DAILY 30 09/29/20 Rx Omeprazole 20 Mg Capsule.dr 1 Cap PO DAILY 08/08/20 Reported Metoprolol Tartrate 25 Mg Tablet 1 Tab PO BID 12/20/14 Reported Feosol (Ferrous Sulfate) 325 Mg Tablet 325 Mg PO DAILY 12/20/14 Reported Aspirin 325 Mg Tablet 1 Tab PO DAILY 12/20/14 Reported Amitriptyline Hcl 50 Mg Tablet 1 Tab PO QHS 12/17/14 Reported Ultram (Tramadol Hcl) 50 Mg Tablet 1 Tab PO Q6HRS PRN 11/01/14 Reported Dulera 100 Mcg/5 Mcg Inhaler (Mometasone/Formoterol) 13 Gm Hfa.aer.ad 2 Puff IH BID 11/01/14 Reported Lidoderm (Lidocaine) 700 Mg Adh..patch 1 Patch TP DAILY PRN 11/01/14 Reported Neurontin (Gabapentin) 300 Mg Capsule 2 Cap PO BID 11/01/14 Reported Flonase (Fluticasone Propionate) 16 Gm [place].susp 2 [place] NS DAILY 11/01/14 Reported Cyclobenzaprine Hcl 10 Mg Tablet 1 Tab PO TID PRN 11/01/14 Reported Celexa (Citalopram Hydrobromide) 40 Mg Tablet 1 Tab PO DAILY 11/01/14 Reported Cetirizine Hcl 10 Mg Tablet 1 Tab PO DAILY 11/01/14 Reported Proair Hfa Inhaler (Albuterol Sulfate) 8.5 Gm Hfa.aer.ad 2 Puff IH PRN Q4-6HRS 11/01/14 Reported Comments CXR IMPRESSION: 1. New left internal jugular temporary dialysis catheter in acceptable position. Otherwise stable support lines and tubes 2. Increasing pulmonary infiltrates and small right pleural effusion Impression . IMPRESSION: 1. Acute hypoxemic respiratory failure multifactorial--improved 2. Shock, likely combination of Cardiogenic (EF15%), Septic, off pressors now 3. Possible pneumonia, gram-negative, gram-positive. Chest x-ray abnormal suspect combination of pulmonary edema and pneumonia 5. Colitis seen on CT abdomen and pelvis, likely source of sepsis 6. Atrial fibrillation/atrial flutter. 7. Acute on chronic heart failure. 8. Bilateral pleural effusions.stable 9. History of ASD, status post closure. 10. Chronic obstructive pulmonary disease with exacerbation. 11. Uigcz-xy-sfalell cor pulmonale. 12. Severe metabolic acidosis, improved 13. coagulopathy 14. Acute kidney injury-- now on HD 15. Acute liver failure, ? amiodarone induced, improving Bili 16. Positive urine drug screen 17. Cardiomyopathy ejection fraction of 15% 18. Encephalopathy, hepatic, 19. Severe Pulmonary HTN, possible hepato -pulmonary vs due to severe CMP Plan . Continue current support with assist control ventilation Fi02 35%/ PEEP of 5. Sedation Vacation and Pressure Support trial, Failed CPAP again 2/2 low TD, and increased RR Plan for T-Piece before extubation Follow CXR/ABG- COVID-19 negative Follow hematology recs ---- holding AC, platelets low Follow nephrology recs-- HD Antibiotics per infectious disease service Follow cardiology input patient echocardiogram revealed ejection fraction 15%, and Afib now off A/C-- S/P cardiac Cath and SAMMY on 11/22-- no intervention-- see report, remains on primacor, diuresis Follow surgery recs--- no surgical plans at this time Nutritional support with TPN Monitor LFT, mild improvement in Bili DVT/GI PPX : SCDS/protonix D/W RN and RT critically ill Total cumulative critical care time from 4520-8869 AM DARIAN BASS MD Nov 29, 2020 09:44
[2020-11-29] MEDS: TPN PER PHARMACY MC PRN (09:58)
[2020-11-29] MEDS: PANTOPRAZOLE IV PUSH 40 MG VIAL. IVP SCH (09:59)
[2020-11-29] MEDS: FUROSEMIDE 40 MG/4 ML VIAL. IVP SCH (10:00)
[2020-11-29] MEDS: MEROPENEM 500 MG in IV NORMAL SALINE 50ML 50 ML IV SCH (10:00)
[2020-11-29] MEDS: METOPROLOL IV PUSH 5 MG/5 ML VIAL. IVP SCH (10:00)
[2020-11-29] MEDS: POTASSIUM CHLORIDE 20MEQ 100 ML IV SCH ×2 (10:02→12:26)
--- NOTE | 2020-11-29 10:04 | NUR ---
Pharmacy TPN Dosing Note S: NANY MARTIN is a 39 year old F Currently receiving Central Continuous TPN started 11/25/20 B:Pertinent PMH: FAILED TF (HIGH GASTRIC RESIDUALS) LABS: Sodium: 145 Potassium: 3.1 Chloride: 106 Calcium: 9.2 Corrected Calcium: 10.16 Magnesium: 2.2 CO2: 32 SCr: 1.2 Glucose: 164 Albumin: 2.8 AST: 64 ALT: 91 TPN FORMULA: TPN TYPE: Central Continuous AMINO ACIDS: 85 gm DEXTROSE: 195 gm LIPIDS: - gm SODIUM CHLORIDE: 50 mEq SODIUM ACETATE: - mEq SODIUM PHOSPHATE: - mmol POTASSIUM CHLORIDE: 30 mEq POTASSIUM ACETATE: - mEq POTASSIUM PHOSPHATE: - mmol MAGNESIUM: 5 mEq CALCIUM: - mEq INSULIN: - units MULTIPLE VITAMIN: 5 ml TRACE ELEMENTS: 1 ml(s) TPN PLAN: 11/29 Patient remains on propofol- no lipids in TPN. K 3.1 today, replaced with IVPB. BMP ordered for AM. R: Continue TPN Will monitor electrolytes, glucose, and tolerance to TPN. KIMBERLY LEAL [facility], 11/29/20 2448
--- NOTE | 2020-11-29 10:55 | PDOC ---
Infectious Disease Note Subjective: Subjective Pt intubated, On TPN Remains afebrile Vital Signs: Vital Signs Vital Signs Date Time Temp Pulse Resp B/P (MAP) Pulse Ox O2 Delivery O2 Flow Rate FiO2 11/29/20 10:00 104 107/62 11/29/20 09:58 17 99 Ventilator 11/29/20 06:56 98.1 98.1 Physical Exam: PHYSICAL EXAM GENERAL: orally intubated, calm HEENT: Pupils equal, ETT/OGT tube present NECK: Right IJ and left HDC, clean LUNGS: Clear anteriorly. HEART: S1 and S2, regular, murmur present ABDOMEN: Mildly distended, soft, hypoactive bowel sounds : Sky in place EXTREMITIES: Trace edema. SCD bilaterally NEUROLOGIC: Sedated SKIN: warm to touch. No signs of generalized rash. LINES: RUE-PICC, RIJ, LIJ/HDC without signs of complications R fem art line removed, Medications: Inpatient Meds: Medications reviewed. Labs: Lab Laboratory Tests Test 11/28/20 12:34 11/28/20 17:00 11/28/20 17:28 11/29/20 00:11 Glucose (Fingerstick) 192 mg/dL (70-99) 177 mg/dL (70-99) 164 mg/dL (70-99) O2 Saturation 91 % (92-99) Arterial Blood pH 7.38 (7.35-7.45) Arterial Blood pCO2 at Patient Temp 51 mmHg (35-46) Arterial Blood pO2 at Patient Temp 69 mmHg (75-108) Arterial Blood HCO3 30 mmol/L (21-28) Arterial Blood Base Excess 4 mmol/L (-3-3) FiO2 30% 10/5 Test 11/29/20 05:50 White Blood Count 21.0 x10^3/uL (4.0-11.0) Red Blood Count 3.65 x10^6/uL (3.50-5.40) Hemoglobin 7.8 g/dL (12.0-15.5) Hematocrit 25.3 % (36.0-47.0) Mean Corpuscular Volume 69 fL (79-100) Mean Corpuscular Hemoglobin 21 pg (25-35) Mean Corpuscular Hemoglobin Concent 31 g/dL (31-37) Red Cell Distribution Width 28.4 % (11.5-14.5) Platelet Count 48 x10^3/uL (140-400) Neutrophils (%) (Auto) 87 % (31-73) Lymphocytes (%) (Auto) 6 % (24-48) Monocytes (%) (Auto) 7 % (0-9) Eosinophils (%) (Auto) 0 % (0-3) Basophils (%) (Auto) 0 % (0-3) Neutrophils # (Auto) 18.4 x10^3/uL (1.8-7.7) Lymphocytes # (Auto) 1.3 x10^3/uL (1.0-4.8) Monocytes # (Auto) 1.4 x10^3/uL (0.0-1.1) Eosinophils # (Auto) 0.0 x10^3/uL (0.0-0.7) Basophils # (Auto) 0.0 x10^3/uL (0.0-0.2) Sodium Level 145 mmol/L (136-145) Potassium Level 3.1 mmol/L (3.5-5.1) Chloride Level 106 mmol/L (98-107) Carbon Dioxide Level 32 mmol/L (21-32) Anion Gap 7 (6-14) Blood Urea Nitrogen 70 mg/dL (7-20) Creatinine 1.2 mg/dL (0.6-1.0) Estimated GFR (Cockcroft-Gault) 60.5 BUN/Creatinine Ratio 58 (6-20) Glucose Level 131 mg/dL (70-99) Calcium Level 9.2 mg/dL (8.5-10.1) Phosphorus Level 3.5 mg/dL (2.6-4.7) Magnesium Level 2.2 mg/dL (1.8-2.4) Total Bilirubin 4.8 mg/dL (0.2-1.0) Aspartate Amino Transf (AST/SGOT) 64 U/L (15-37) Alanine Aminotransferase (ALT/SGPT) 91 U/L (14-59) Alkaline Phosphatase 107 U/L (46-116) Total Protein 6.1 g/dL (6.4-8.2) Albumin 2.8 g/dL (3.4-5.0) Albumin/Globulin Ratio 0.8 (1.0-1.7) Micro CHEST CT: No enlarged thoracic lymphadenopathy is evident. No focal aneurysmal dilatation of the thoracic aorta is seen. Cardiomegaly is evident. No pericardial effusion is seen. Small left-sided pleural effusion and moderate size right-sided pleural effusion is seen. Bilateral lung infiltrates are seen most consolidative within the right lower lobe and left lower lobe. Left lower lobe is almost completely consolidated. Some of this could be due to atelectasis given the narrowing of the left lower lobe bronchus. Additional groundglass lung infiltrates are apparent within the upper lobes bilaterally and to lesser extent within the right middle lobe. Atypical pneumonia such as Covid 19 pneumonia is certainly possible. No pneumothorax is seen. No lytic process is seen. IMPRESSION: Bilateral lung infiltrates more consolidative within both lower lobes. The left lower lobe is almost completely consolidated. Some of this on the left side could be due to atelectasis related to narrowing of the left lower lobe bronchus. Additional groundglass nodular lung infiltrates are seen bilaterally. Therefore, atypical pneumonia such as Covid 19 pneumonia is possible as well. Bilateral pleural effusions; moderate size on the right side mild on the left side. Cardiomegaly. Therefore, lung infiltrates and pleural effusions could be reflection of CHF as well. ABDOMEN AND PELVIS CT: The liver and spleen and pancreas are unremarkable on this noncontrast study. Dense bile is seen within the gallbladder which may represent biliary sludge or could be related to previous contrast study. No extra hepatic ductal dilatation is seen. No adrenal mass is evident. Contrast is seen within both kidneys. This is related to recent cardiac imaging. Multiple wedge-shaped hypodense areas of both kidneys are seen. This could be secondary to multiple renal infarcts or pyelonephritis. No perinephric fluid collection is seen otherwise. No hydronephrosis is evident on either side. Urinary bladder is decompressed by an indwelling Sky catheter. No focal aneurysmal dilatation of the abdominal aorta is seen. No bulky abdominal or pelvic lymphadenopathy is evident. Mild fecal retention is seen within the colon. There is mild dilatation of the right side of the colon. No obstructive bowel pattern is evident. NG tube tip is seen within the proximal body of the stomach. Stomach is not abnormally distended. There is a small amount of free fluid within the pelvis. Generalized anasarca of the soft tissues of the abdomen and pelvis and bilateral flanks is seen. No free air is apparent. A right groin catheter is seen extending into right external iliac artery or vein. No lytic process is evident. IMPRESSION: Multiple wedge-shaped hypodense areas are seen within both kidneys consistent with bilateral renal infarcts or pyelonephritis. No hydronephrosis. Small amount of ascites is seen within the pelvis. Generalized anasarca. Objective: Assessment: Severe sepsis source likely GI. BC negative Leukocytosis Lactic acidosis. Acute kidney injury with severe metabolic acidosis. Abdominal pain, intermittent nausea.Colitis on CT abdomen, Gen surgery evaluated pt Atrial fibrillation/flutter. Acute on chronic congestive heart failure. Valvular insufficiency. MR, severe TR, hepatic congestion History of PFO cloure/ASD repair. Acute respiratory failure status post intubation, CT chest noted Pulmonary hypertension. Coagulopathy. Thrombocytopenia Abnormal liver function tests , hyperbilirubinemia COVID-19 negative UC negative, CT kidney infarcts KENNETH Plan: Plan of Care Continue Merrem and daptomycin, renal adjustment , DC micafungin Off zyvox with thrombocytopenia - neg cults and 10 days of treatment Transesophageal echocardiogram attempted but was unsuccessful DC Rt groin line when able On steroids Gen surgery has evaluated pt Monitor labs/temp Continue supportive care. Critically ill Prognosis very poor Discussed with mother at bedside Discussed with nursing staff MEGAN MEHTA MD Nov 29, 2020 10:55
[2020-11-29 13:03] LABS: PROTHROMBIN TIME PATIENT 14.4 SEC (11.7-14.0)
[2020-11-29] MEDS ORDERED: DIGOXIN IV 500 MCG/2 ML AMPUL. IV ONE (14:30)
--- NOTE | 2020-11-29 15:09 | PDOC ---
MARI VIVAS BENCH MANAGER 11/29/20 1509: CARDIO Progress Notes Date and Time Date of Service 11/29/2020 Time of Evaluation 1350 Subjective Subjective: Other (intubated) Vitals Vitals Vital Signs Date Time Temp Pulse Resp B/P (MAP) Pulse Ox O2 Delivery O2 Flow Rate FiO2 11/29/20 14:20 124 111/63 11/29/20 14:04 28 100 Ventilator 11/29/20 11:15 98.0 98.0 Weight Weight [ ] Input and Output Intake and Output Intake and Output 11/29/20 07:00 Intake Total 1864 ml Output Total 2620 ml Balance -756 ml IV Total 1864 ml Output Urine Total 2170 ml Gastric Drainage Total 450 ml Laboratory Labs Laboratory Tests Test 11/28/20 17:00 11/28/20 17:28 11/29/20 00:11 11/29/20 05:50 O2 Saturation 91 % (92-99) Arterial Blood pH 7.38 (7.35-7.45) Arterial Blood pCO2 at Patient Temp 51 mmHg (35-46) Arterial Blood pO2 at Patient Temp 69 mmHg (75-108) Arterial Blood HCO3 30 mmol/L (21-28) Arterial Blood Base Excess 4 mmol/L (-3-3) FiO2 30% 10/5 Glucose (Fingerstick) 177 mg/dL (70-99) 164 mg/dL (70-99) White Blood Count 21.0 x10^3/uL (4.0-11.0) Red Blood Count 3.65 x10^6/uL (3.50-5.40) Hemoglobin 7.8 g/dL (12.0-15.5) Hematocrit 25.3 % (36.0-47.0) Mean Corpuscular Volume 69 fL (79-100) Mean Corpuscular Hemoglobin 21 pg (25-35) Mean Corpuscular Hemoglobin Concent 31 g/dL (31-37) Red Cell Distribution Width 28.4 % (11.5-14.5) Platelet Count 48 x10^3/uL (140-400) Neutrophils (%) (Auto) 87 % (31-73) Lymphocytes (%) (Auto) 6 % (24-48) Monocytes (%) (Auto) 7 % (0-9) Eosinophils (%) (Auto) 0 % (0-3) Basophils (%) (Auto) 0 % (0-3) Neutrophils # (Auto) 18.4 x10^3/uL (1.8-7.7) Lymphocytes # (Auto) 1.3 x10^3/uL (1.0-4.8) Monocytes # (Auto) 1.4 x10^3/uL (0.0-1.1) Eosinophils # (Auto) 0.0 x10^3/uL (0.0-0.7) Basophils # (Auto) 0.0 x10^3/uL (0.0-0.2) Sodium Level 145 mmol/L (136-145) Potassium Level 3.1 mmol/L (3.5-5.1) Chloride Level 106 mmol/L (98-107) Carbon Dioxide Level 32 mmol/L (21-32) Anion Gap 7 (6-14) Blood Urea Nitrogen 70 mg/dL (7-20) Creatinine 1.2 mg/dL (0.6-1.0) Estimated GFR (Cockcroft-Gault) 60.5 BUN/Creatinine Ratio 58 (6-20) Glucose Level 131 mg/dL (70-99) Calcium Level 9.2 mg/dL (8.5-10.1) Phosphorus Level 3.5 mg/dL (2.6-4.7) Magnesium Level 2.2 mg/dL (1.8-2.4) Total Bilirubin 4.8 mg/dL (0.2-1.0) Aspartate Amino Transf (AST/SGOT) 64 U/L (15-37) Alanine Aminotransferase (ALT/SGPT) 91 U/L (14-59) Alkaline Phosphatase 107 U/L (46-116) Total Protein 6.1 g/dL (6.4-8.2) Albumin 2.8 g/dL (3.4-5.0) Albumin/Globulin Ratio 0.8 (1.0-1.7) Test 11/29/20 12:15 11/29/20 12:30 Prothrombin Time 14.4 SEC (11.7-14.0) Prothromb Time International Ratio 1.2 (0.8-1.1) Glucose (Fingerstick) 180 mg/dL (70-99) Microbiology Micro Microbiology 11/17/20 Blood Culture - Final, Complete NO GROWTH AFTER 5 DAYS 11/15/20 Urine Culture - Final, Complete Review of Systems Constitutional: yes: unresponsive, other (INTUBATED) Physical Exam HEENT: Neck Supple W Full Motion Chest: Symmetric LUNGS: Other (diminished , intubated, vent) Heart: irregularly irregular (AFIB/flutter ) Abdomen: Other (anasarca) Extremities: Other (trace bilateral LE edema ) Neurology: other (on sedation ) Assessment Assessment 1. Acute on chronic systolic/diastolic CHF; improved. weight down to 71kg 2. AFIB/flutter: presently with RVR. notable for biatrial dilation. was on eliquis. 3. Acute respiratory failure with a/c CHF, possible PNA, cor pulmonale: intubated with vent, failed weaning may need tracheostomy 4. Valvular insufficiency: notable for moderate MR and mod to severe TR 5. H/o ASD s/p surgical closure: 2014. Unable to advance probe as pt was biting during SAMMY for reevaluation 6. Severe KENNETH: Cr improved 7. Anemia: multifactorial. possible UGI erosions. Hgb stable at 7.7 8. Transaminitis, coagulopathy; INR better at 1.2 9. Severe NICM: 15-20%, LHC revealed no CAD 10. Cardiohepatorenal syndrome 11. Hypertension: controlled. No pressors 12. Hypoglycemia, profound improved 13. Fever: resolved 14. Abdominal pain; CT with possible colitis 15. Marijuana use 16. Thrombocytopenia: PLT drifted to 48, OG notable for dark gastric contents appears to be digested blood Recommendations Continue milrinone and Lasix therapy. Good UOP Increase BB and provide x1 Digoxin. If RVR is refractory then will consider decreasing milrinone dose. No AC or antiplatelet therapy currently due to thrombocytopenia/coagulopathy and suspected UGI bleed Outpatient referral for advance heart failure therapies Ongoing support Justicifation of Admission Dx: Justifications for Admission: Justification of Admission Dx: Yes CHF: Cardiac Arrhythmias CHAYO LOCKWOOD MD 11/29/204: CARDIO Progress Notes Plan Plan Patient seen and examined. Agree with above nurse practitioner note. Case discussed with heart failure transplant service at [facility]. I feel that a tracheostomy will not solve her current cardiomyopathy. She needs to be evaluated for advanced heart failure therapies. Discussed her case with Dr. Yves Chamorro and she has been accepted for transfer. Supportive care. MARI VIVAS APRN Nov 29, 2020 15:09 CHAYO LOCKWOOD MD Nov 29, 2020 22:27
--- NOTE | 2020-11-29 15:20 | PDOC ---
Renal-Progress Notes Subjective Notes Notes ON THE VENT History of Present Illness Hx of present illness IMPROVING Vitals Vitals Vital Signs Date Time Temp Pulse Resp B/P (MAP) Pulse Ox O2 Delivery O2 Flow Rate FiO2 11/29/20 14:20 124 111/63 11/29/20 14:04 28 100 Ventilator 11/29/20 11:15 98.0 98.0 Weight Weight [ ] I.O. Intake and Output Intake and Output 11/29/20 07:00 Intake Total 1864 ml Output Total 2620 ml Balance -756 ml IV Total 1864 ml Output Urine Total 2170 ml Gastric Drainage Total 450 ml Labs Labs Laboratory Tests Test 11/28/20 17:00 11/28/20 17:28 11/29/20 00:11 11/29/20 05:50 O2 Saturation 91 % (92-99) Arterial Blood pH 7.38 (7.35-7.45) Arterial Blood pCO2 at Patient Temp 51 mmHg (35-46) Arterial Blood pO2 at Patient Temp 69 mmHg (75-108) Arterial Blood HCO3 30 mmol/L (21-28) Arterial Blood Base Excess 4 mmol/L (-3-3) FiO2 30% 10/5 Glucose (Fingerstick) 177 mg/dL (70-99) 164 mg/dL (70-99) White Blood Count 21.0 x10^3/uL (4.0-11.0) Red Blood Count 3.65 x10^6/uL (3.50-5.40) Hemoglobin 7.8 g/dL (12.0-15.5) Hematocrit 25.3 % (36.0-47.0) Mean Corpuscular Volume 69 fL (79-100) Mean Corpuscular Hemoglobin 21 pg (25-35) Mean Corpuscular Hemoglobin Concent 31 g/dL (31-37) Red Cell Distribution Width 28.4 % (11.5-14.5) Platelet Count 48 x10^3/uL (140-400) Neutrophils (%) (Auto) 87 % (31-73) Lymphocytes (%) (Auto) 6 % (24-48) Monocytes (%) (Auto) 7 % (0-9) Eosinophils (%) (Auto) 0 % (0-3) Basophils (%) (Auto) 0 % (0-3) Neutrophils # (Auto) 18.4 x10^3/uL (1.8-7.7) Lymphocytes # (Auto) 1.3 x10^3/uL (1.0-4.8) Monocytes # (Auto) 1.4 x10^3/uL (0.0-1.1) Eosinophils # (Auto) 0.0 x10^3/uL (0.0-0.7) Basophils # (Auto) 0.0 x10^3/uL (0.0-0.2) Sodium Level 145 mmol/L (136-145) Potassium Level 3.1 mmol/L (3.5-5.1) Chloride Level 106 mmol/L (98-107) Carbon Dioxide Level 32 mmol/L (21-32) Anion Gap 7 (6-14) Blood Urea Nitrogen 70 mg/dL (7-20) Creatinine 1.2 mg/dL (0.6-1.0) Estimated GFR (Cockcroft-Gault) 60.5 BUN/Creatinine Ratio 58 (6-20) Glucose Level 131 mg/dL (70-99) Calcium Level 9.2 mg/dL (8.5-10.1) Phosphorus Level 3.5 mg/dL (2.6-4.7) Magnesium Level 2.2 mg/dL (1.8-2.4) Total Bilirubin 4.8 mg/dL (0.2-1.0) Aspartate Amino Transf (AST/SGOT) 64 U/L (15-37) Alanine Aminotransferase (ALT/SGPT) 91 U/L (14-59) Alkaline Phosphatase 107 U/L (46-116) Total Protein 6.1 g/dL (6.4-8.2) Albumin 2.8 g/dL (3.4-5.0) Albumin/Globulin Ratio 0.8 (1.0-1.7) Test 11/29/20 12:15 11/29/20 12:30 Prothrombin Time 14.4 SEC (11.7-14.0) Prothromb Time International Ratio 1.2 (0.8-1.1) Glucose (Fingerstick) 180 mg/dL (70-99) Micro Micro Microbiology 11/17/20 Blood Culture - Final, Complete NO GROWTH AFTER 5 DAYS 11/15/20 Urine Culture - Final, Complete Review of Systems Constitutional: yes: unresponsive, other (INTUBATED) Physical Exam General Appearance: no apparent distress, febrile Respiratory: bilateral CTA Heart: S1S2 Abdomen: soft, bowel sounds present Genitourinary: bladder flat Extremities: pulses present Neurology: other (on sedation ) Assessment Assessment IMP [id number] UO AND CLEARANCE-CR OF 1.2 HYPOKALEMIA ACUTE HYPOXIC RESP FAILURE SEPSIS WITH SHOCK PROB PNEUMONIA CM WITH EF OF 15% ANEMIA LEUCOCYTOSIS AFIB/FLUTTER LIVER FAILURE MET ACIDOSIS-COMPENSATED PLAN REPLACE K PT REMAINS CRITICALLY ILL CONT BUCK ANTIBIOTICS PRESSORS NEEDED HOPEFULLY NO FURTHER HD NEEDED VENT SUPPORT AND WEAN TOLERATED TPN TO CONTINUE CRITICALLY ILL PT POOR PROGNOSIS WILL FOLLOW CHICHI MENDOZA MD Nov 29, 2020 15:20
--- NOTE | 2020-11-29 15:46 | NUR ---
SS following up with discharge planning. SS reviewed pt chart and discussed with pt RN. Pt is currently on the vent at 30%. Pt only tolerated CPAP trial for short period. Pt on TPN, IV Daptomycin, IV Meropenem, and Milrinone drip. SS discussed with Dr. Campbell. transfer requested. SS contacted transfer team, ; fax [phone], and spoke with Yusef. Transfer request initiated. SS phoned and faxed clinical as requested. SS contacted radiology, [phone], and requested that images be clouded to . Packet, transfer form, and [facility] form on the chart. SS will continue to follow for discharge planning.
--- NOTE | 2020-11-29 16:28 | NUR ---
Patient CPAP trail [phone]. Increase WOB, decrease TV, increase HR. Dr. Campbell request patient transfer to . Waiting acceptance. Patient's mom took all of patient's belongings home with her. Continuing patient monitoring and care.
[2020-11-29] MEDS ORDERED: METOPROLOL IV PUSH 5 MG/5 ML VIAL. IVP SCH (18:00)
--- NOTE | 2020-11-29 21:15 | NUR ---
Patient was transferred to by [facility] at 2100. Vital signs stable at time of transfer, belongs with mother. Transferred with propofol and milrinone through central line.
[2020-11-29] MEDS ORDERED: [UNRECOGNIZED DRUG - OTHER] IV SCH (22:00)
[2020-11-29] MEDS ORDERED: TOTAL PARENTERAL NUTRITION IV SCH (22:00)
[2020-11-29] MEDS ORDERED: DEXTROSE 70% IV SCH (22:00)
[2020-11-29] MEDS ORDERED: AMINO ACID IV SCH (22:00)
== END 2020-11-29 21:00 | disposition short-term general hospital (02) | DRG 870 ==
LOC: ER 09:22 → 1 WEST ICU 12:05
PROVIDERS: ADMIT Internal Medicine; ATTEND Internal Medicine
PROC: 02HV33Z Insertion of Infusion Device into Superior Vena Cava, Percutaneous Approach (ICD-10-PCS; 2020-11-18)
PROC: B548ZZA Ultrasonography of Superior Vena Cava, Guidance (ICD-10-PCS; 2020-11-18)
PROC: 02H633Z Insertion of Infusion Device into Right Atrium, Percutaneous Approach (ICD-10-PCS; 2020-11-18)
PROC: B5181ZA Fluoroscopy of Superior Vena Cava using Low Osmolar Contrast, Guidance (ICD-10-PCS; 2020-11-18)
PROC: B548ZZA Ultrasonography of Superior Vena Cava, Guidance (ICD-10-PCS; 2020-11-18)
PROC: 5A1955Z Respiratory Ventilation, Greater than 96 Consecutive Hours (ICD-10-PCS; 2020-11-20)
PROC: 0BH17EZ Insertion of Endotracheal Airway into Trachea, Via Natural or Artificial Opening (ICD-10-PCS; 2020-11-20)
PROC: B24BZZ4 Ultrasonography of Heart with Aorta, Transesophageal (ICD-10-PCS; principal; 2020-11-22)
PROC: B211YZZ Fluoroscopy of Multiple Coronary Arteries using Other Contrast (ICD-10-PCS; 2020-11-22)
PROC: 4A023N8 Measurement of Cardiac Sampling and Pressure, Bilateral, Percutaneous Approach (ICD-10-PCS; 2020-11-22)
PROC: 30233N1 Transfusion of Nonautologous Red Blood Cells into Peripheral Vein, Percutaneous Approach (ICD-10-PCS; 2020-11-25)
DX: A41.9 Sepsis, unspecified organism (principal); N17.0 Acute kidney failure with tubular necrosis; I50.43 Acute on chronic combined systolic (congestive) and diastolic (congestive) heart failure; J18.9 Pneumonia, unspecified organism; J96.01 Acute respiratory failure with hypoxia; K72.00 Acute and subacute hepatic failure without coma; N18.6 End stage renal disease; R57.0 Cardiogenic shock; R65.21 Severe sepsis with septic shock; E87.2 Acidosis; I13.2 Hypertensive heart and chronic kidney disease with heart failure and with stage 5 chronic kidney disease, or end stage renal disease; I42.8 Other cardiomyopathies; I48.19 Other persistent atrial fibrillation; I48.92 Unspecified atrial flutter; J44.0 Chronic obstructive pulmonary disease with (acute) lower respiratory infection; J44.1 Chronic obstructive pulmonary disease with (acute) exacerbation; K56.7 Ileus, unspecified; N12 Tubulo-interstitial nephritis, not specified as acute or chronic; D68.9 Coagulation defect, unspecified; D50.9 Iron deficiency anemia, unspecified; D63.8 Anemia in other chronic diseases classified elsewhere; E16.2 Hypoglycemia, unspecified; E78.00 Pure hypercholesterolemia, unspecified; E78.5 Hyperlipidemia, unspecified; E87.5 Hyperkalemia; E87.6 Hypokalemia; F12.90 Cannabis use, unspecified, uncomplicated; F41.9 Anxiety disorder, unspecified; I07.1 Rheumatic tricuspid insufficiency; I27.29 Other secondary pulmonary hypertension; I27.81 Cor pulmonale (chronic); I50.82 Biventricular heart failure; Z20.822 Contact with and (suspected) exposure to COVID-19; Z87.74 Personal history of (corrected) congenital malformations of heart and circulatory system; Z87.891 Personal history of nicotine dependence; K21.9 Gastro-esophageal reflux disease without esophagitis; M54.5 Low back pain; Z91.041 Radiographic dye allergy status; K52.9 Noninfective gastroenteritis and colitis, unspecified; D69.6 Thrombocytopenia, unspecified
CPT/HCPCS: 51702; 93460; 96365; 96366; 96368; 96375; 99285; G0269; 36415; 36556; 36569; 36600; 36620; 71045; 71250; 74018; 74022; 74176; 76937; 80048; 80053; 80076; 80307; 81001; 82550; 82570; 82805; 82962; 83036; 83605; 83735; 83880; 84100; 84145; 84156; 84478; 84484; 85007; 85014; 85018; 85025; 85027; 85049; 85230; 85379; 85384; 85610; 85611; 85730; 86317; 86850; 86900; 86901; 86920; 87040; 87086; 87340; 87426; 93005; 93306; 93312; 93976; 94002; 94003; 94640; 99152; 99153; C1713; C1769; C1773; C1892; C1894; C9113; J0171; J0330; J0610; J0692; J0878; J1160; J1644; J1720; J1815; J1940; J2020; J2185; J2248; J2250; J2260; J2543; J2704; J3010; J3370; J3411; J3475; J3480; J3490; J7040; J7042; J7050; J7060; J7120; J7194; P9016; P9045; P9046; Q9967; U0003; G0378; J7030; J7626